=== PATIENT | female | born 1980 | race Caucasian/White ===

== ENCOUNTER 2016-10-12 08:14 | Emergency (ER) | payer BC, OTHER ==
[2016-10-12 09:13] VITALS: BP 134/80
--- NOTE | 2016-10-12 11:06 | UC ---
sarina Bhandari Timothy, scribed for Cesia Mendoza DO on 10/12/16 at 0918 . GI Bleed HPI - HPI Summary HPI Summary: Ananya Gallegos is a 36 yo female presenting to [facility] with rectal bleeding, 4/10 ache and diffuse abdominal and lower back cramping, and possible diarrhea for the past 5 days, 5-6x a day. She states that she feels as though she has diarrhea, but when she uses the toilet she just sees blood. She also has light headedness and dizziness, PIERRE, and feels hot/diaphoresis, and fatigue. She is experiencing some amount of CP, attributed to her GERD. She has a Hx of hemorrhoids, but states she does not think she has them currently. The blood is dark red, not bright red. She denies any other Sx. Her MHx includes mitral valve prolapse, asthma, GERD, depression, anxiety, claustrophobia. She is also a former smoker. - History Of Current Complaint Stated Complaint: RECTAL BLEEDING Time Seen by Provider: 10/12/16 09:16 Hx Obtained From: Patient Hx Last Menstrual Period: 09/21/16 Onset/Duration: Gradual Onset, Lasting Days, Still Present Severity: Black Tarry Stool - PT REPORTS THAT BLOOD IS DORK RED, "WINE COLLORED " WITH OCC BRIGHT BLOOD Severity Initially: Moderate Severity Currently: Moderate Pain Intensity: 4 Pain Scale Used: 0-10 Numeric Associated Pain: Diffuse Character: Cramping Aggravating Factor(s): Food Alleviating Factor(s): Other Associated Signs And Symptoms: Positive: Back Pain, Pallor, Dizziness, Weakness - Allergies/Home medications Allergies/Adverse Reactions: Allergies Allergy/AdvReac Type Severity Reaction Status Date / Time Cephalexin [From Keflex] Allergy Intermediate Hives Verified 10/12/16 09:13 Sulfamethoxazole Allergy Intermediate Hives Verified 10/12/16 09:13 w/Trimethoprim [From Bactrim] Codeine AdvReac Intermediate Nausea And Verified 10/12/16 09:13 Vomiting PMH/Surg Hx/FS Hx/Imm Hx - Additional Past Medical History Additional PMH: Hx of gestational DM for the past two pregnancies Endocrine History Of: Denies: Diabetes Cardiovascular History Of: Denies: Hypertension, Pacemaker/ICD Respiratory History Of: Reports: Asthma Psychological History Of: Reports: Anxiety, Depression - Surgical History Surgical History: Yes Surgery Procedure, Year, and Place: lap diamond, tubes in ears, - Family History Known Family History: Positive: Unknown - Pt is adopted - Social History Occupation: Employed Full-time Lives: With Family Alcohol Use: None Substance Use Type: None Smoking Status (MU): Former Smoker Type: Cigarettes Length of Time of Smoking/Using Tobacco: 12 yrs Have You Smoked in the Last Year: No When Did the Patient Quit Smoking/Using Tobacco: 2013 - Immunization History Most Recent Influenza Vaccination: DECLINES Most Recent Tetanus Shot: unsure, will offer Most Recent Pneumonia Vaccination: never Review of Systems Constitutional: Fatigue, Other - feels hot/diaphoresis Skin: Negative Eyes: Negative ENT: Negative Respiratory: Negative Cardiovascular: Chest Pain Gastrointestinal: Abdominal Pain, Diarrhea - possible, Other - dark red blood in stool Genitourinary: Negative Motor: Negative Neurovascular: Negative Musculoskeletal: Other: - back cramping Neurological: Headache, Other - light headed, dizzy Psychological: Negative All Other Systems Reviewed And Are Negative: Yes Physical Exam Triage Information Reviewed: Yes Appearance: Well-Appearing, No Pain Distress, Obese Vital Signs: Initial Vital Signs Temp 98.4 F 10/12/16 09:06 Pulse 69 10/12/16 09:06 Resp 16 10/12/16 09:06 BP 134/80 10/12/16 09:06 Pulse Ox 100 10/12/16 09:06 Vital Signs Reviewed: Yes Eyes: Positive: Conjunctiva Clear. Negative: Discharge ENT: Positive: Hearing grossly normal. Negative: Muffled/hoarse voice Neck: Positive: Supple, Nontender Respiratory: Positive: Chest non-tender, Lungs clear, Normal breath sounds, No respiratory distress, No accessory muscle use Cardiovascular: Positive: RRR, No Murmur Abdomen Description: Positive: Guarding. Negative: Nontender - very tender LRQ/ LLQ., CVA Tenderness (R), CVA Tenderness (L), Distended Bowel Sounds: Positive: Present Musculoskeletal Exam: Normal Neurological: Positive: Alert, Muscle Tone Normal Psychological Exam: Normal Psychological: Positive: Age Appropriate Behavior Skin Exam: Normal Re-Evaluation - Re-Evaluation First Eval Re-Evaluation Time: 09:52 Change: Unchanged Comment: Further discussed Pt condition and checked capillary refill. Less than 2 seconds. Conjunctiva were normal colored. Second Eval Re-Evaluation Time: 09:57 Change: Unchanged Comment: Pt was informed of results of stool sample analysis Bleed Course/Dx - Course Course Of Treatment: Ananya Guadarrama is a 36 yo female presenting to [facility] with rectal bleeding, light headedness, dizziness, and fatigue. After examination, UA, and stool sample analysis, which was bright red, predominantly made up of blood, she will be transferred to [facility] [place] [place] by private car for higher level of care, including access to lab work. UA results: color: yellow. character: cloudy. odor: foul. bilirubin: negative. urobilinogen: normal. ketones: negative. ascorbic acid: negative. Glucose: negative. protein: 30 mg /dL. blood: negative. pH: 6. Nitrite: negative. Leukocytes: 500 WBC's/ microliter. Specific gravity: 1.015 - Differential Dx/Diagnosis Differential Diagnosis/HQI/PQRI: Diverticulitis, Other - uti, colitis, gi bleed Provider Diagnoses: gi bleed, abd pain of unkown adarsh - Physician Notification/Consults Discussed Patient Care With: Kay Boone (Emergency physician) - Agrees to see Pt in ED Time Discussed With Above Provider: 09:59 Instructed by Provider To: MD Will See In ED Discharge - Discharge Plan Condition: Stable Disposition: TRANS HIGHER LVL OF CARE FAC Discharge Disposition Comment: Transfer to [facility] [place] [place] ED by car The documentation as recorded by the sarina monterroso Timothy accurately reflects the service I personally performed and the decisions made by , Cesia Mendoza DO.
== END 2016-10-12 10:08 | disposition short-term general hospital (02) ==
LOC: UCEAST 08:14
DX: K92.1 Melena (principal); R42 Dizziness and giddiness; R53.83 Other fatigue; Z32.02 Encounter for pregnancy test, result negative; Z88.1 Allergy status to other antibiotic agents; Z88.5 Allergy status to narcotic agent; Z88.2 Allergy status to sulfonamides; Z87.891 Personal history of nicotine dependence
CPT/HCPCS: 81002; 81025; 87077; 87086; 99212; G0463

== ENCOUNTER 2016-10-12 10:34 | Observation (INO) | payer BC ==
[2016-10-12] MEDS ORDERED: Aspirin Low Dose CHEW TAB* 81 MG PO ONE (10:42)
[2016-10-12 13:17] LABS: Hematocrit 35 % (35-47); Hemoglobin 11.4 g/dl (12.0-16.0); Mean Corpuscular HGB Conc 33 g/dl (31-36); Mean Corpuscular Hemoglobin 23 pg (27-31); Mean Corpuscular Volume 72 fL (80-97); Mean Platelet Volume 9 um3 (7.4-10.4); Red Cell Distribution Width 16 % (10.5-15); White Blood Count 10.5 10^3/ul (3.5-10.8)
[2016-10-12 13:18] LABS: Add Diff/Slide Review? Slide Review Added; Comments Flag Yes
[2016-10-12 13:34] LABS: BUN/Creatinine Ratio 9.8 (8-20); Calcium 9.4 mg/dL (8.6-10.3); EGFR African American 141.9 (>60); EGFR Non-African American 110.4 (>60); Globulin 3.4 g/dL (2-4); Potassium 3.5 mmol/L (3.5-5.0); Total Bilirubin 0.7 mg/dL (0.2-1.0); Total Protein 7.4 g/dL (6.4-8.9)
[2016-10-12 13:37] LABS: Troponin I 0.07 ng/mL (<0.04)
[2016-10-12] MEDS ORDERED: Pantoprazole IV* 40 MG IV ONE (13:43)
[2016-10-12] MEDS ORDERED: Ondansetron INJ* 2 MG/ML VIAL IV PRN (14:40)
[2016-10-12] MEDS ORDERED: Morphine INJ* 2 MG/ML 1 ML CARPUJECT IV PRN (14:40)
[2016-10-12] MEDS: NS 0.9% 1000 ML* 1,000 ML IV SCH (17:44)
[2016-10-12] MEDS ORDERED: PEG 3000 GI LAVAGE* 1 GALLON PO ONE (18:00)
[2016-10-12 18:28] LABS: Hematocrit 33 % (35-47); Hemoglobin 10.7 g/dl (12.0-16.0)
[2016-10-12 18:29] LABS: Comments Flag Yes
--- NOTE | 2016-10-12 20:00 | ED ---
Marcos Bhandari Adam, scribed for Abdullahi Boyer MD on 10/12/16 at 1214 . GI/ HPI - HPI Summary HPI Summary: Pt is a 36 year old female sent from urgent care with rectal bleeding that set on 4 nights ago. She says that she has been having what feels like diarrhea but appears to be mostly blood and has been passing blood clots. She also reports spraying blood into the toilet when she passes gas. She states that she has had similar bleeding before due to hemorrhoids but that it typically passes after 1- 2 BM's. She has been having these bloody BM's about 5-6 times a day since they set on 4 nights ago. Pt also c/o abdominal cramping that radiates to her lower back, as well as nausea, lightheadedness, fatigue, and a burning sensation in her esophagus. PMHx of GERD, mitral valve prolapse, and depression. - History of Current Complaint Chief Complaint: EDGIBleed Time Seen by Provider: 10/12/16 12:09 Stated Complaint: RECTAL BLEEDING/ SENT FROM [facility] Hx Obtained From: Patient Onset/Duration: Started Days Ago, Atraumatic, Still Present Timing: Constant Severity: Moderate Current Severity: Moderate Pain Intensity: 2 Location of Pain: Diffuse Pain Characteristics: Cramping Pain Radiates to: Back Associated Signs and Symptoms: Positive: Blood w/Stool, Diarrhea, Lightheadedness, Abdominal Pain. Negative: Vomiting Aggravating Factor(s): Nothing Alleviating Factor(s): Nothing - Allergy/Home Medications Allergies/Adverse Reactions: Allergies Allergy/AdvReac Type Severity Reaction Status Date / Time Cephalexin [From Keflex] Allergy Intermediate Hives Verified 10/12/16 11:29 Sulfamethoxazole Allergy Intermediate Hives Verified 10/12/16 11:29 w/Trimethoprim [From Bactrim] Codeine AdvReac Intermediate Nausea And Verified 10/12/16 11:29 Vomiting PMH/Surg Hx/FS Hx/Imm Hx Endocrine/Hematology History: Denies: Hx Diabetes Cardiovascular History: Reports: Hx Valvular Heart Disease - mitral valve prolapse Denies: Hx Hypertension, Hx Pacemaker/ICD Respiratory History: Reports: Hx Asthma GI History: Reports: Hx Gastroesophageal Reflux Disease - problems with esophagus - seeing a specialist Sensory History: Denies: Hx Hearing Aid Psychiatric History: Reports: Hx Anxiety, Hx Depression Denies: Hx Panic Disorder - Surgical History Surgery Procedure, Year, and Place: lap diamond, tubes in ears, Infectious Disease History: No Infectious Disease History: Denies: Traveled Outside the [place] in Last 30 Days - Family History Known Family History: Positive: Unknown - Noncontributory - Social History Occupation: Employed Full-time Lives: Alone Alcohol Use: None Hx Substance Use: No Substance Use Type: Reports: None Hx Tobacco Use: Yes Smoking Status (MU): Former Smoker Type: Cigarettes Length of Time of Smoking/Using Tobacco: 12 yrs Have You Smoked in the Last Year: No Review of Systems Positive: Fatigue. Negative: Fever Positive: Abdominal Pain, Diarrhea, Nausea, Other - Rectal bleeding, esophageal burning. Negative: Vomiting Neurological: Other - Lightheadedness All Other Systems Reviewed And Are Negative: Yes Physical Exam - Summary Physical Exam Summary: Rectal exam: external hemorrhoids, no obvious bleeding. Triage Information Reviewed: Yes Vital Signs On Initial Exam: Initial Vitals Temp Pulse Resp BP Pulse Ox 98.2 F 74 16 153/97 100 10/12/16 11:11 10/12/16 11:11 10/12/16 11:11 10/12/16 11:11 10/12/16 11:11 Vital Signs Reviewed: Yes Appearance: Positive: Well-Appearing, No Pain Distress Skin: Positive: Warm, Skin Color Reflects Adequate Perfusion, Dry Head/Face: Positive: Normal Head/Face Inspection Eyes: Positive: Other: - Conjunctivae pink ENT: Positive: Normal ENT inspection Neck: Positive: Supple, Nontender Respiratory/Lung Sounds: Positive: Clear to Auscultation, Breath Sounds Present Cardiovascular: Positive: RRR Abdomen Description: Positive: Soft, Other: - Mildly tender in both lower quadrants Bowel Sounds: Positive: Present Musculoskeletal: Positive: Normal Neurological: Positive: Normal Psychiatric: Positive: Normal, Affect/Mood Appropriate Diagnostics - Vital Signs Vital Signs Temp Pulse Resp BP Pulse Ox 10/12/16 11:11 98.2 F 74 16 153/97 100 - Laboratory Lab Results: Lab Results 10/12/16 10/12/16 10/12/16 Range/Units 13:03 13:03 13:03 WBC 10.5 (3.5-10.8) 10^3/ul RBC 4.90 (4.0-5.4) 10^6/ul Hgb 11.4 L (12.0-16.0) g/dl Hct 35 (35-47) % MCV 72 L (80-97) fL MCH 23 L (27-31) pg MCHC 33 (31-36) g/dl RDW 16 H (10.5-15) % Plt Count 209 (150-450) 10^3/ul MPV 9 (7.4-10.4) um3 Neut % (Auto) 65.3 (38-83) % Lymph % (Auto) 28.8 (25-47) % Camp % (Auto) 3.5 (1-9) % Eos % (Auto) 1.6 (0-6) % Baso % (Auto) 0.8 (0-2) % Absolute Neuts (auto) 6.8 (1.5-7.7) 10^3/ul Absolute Lymphs (auto) 3.0 (1.0-4.8) 10^3/ul Absolute Monos (auto) 0.4 (0-0.8) 10^3/ul Absolute Eos (auto) 0.2 (0-0.6) 10^3/ul Absolute Basos (auto) 0.1 (0-0.2) 10^3/ul Absolute Nucleated RBC 0.02 10^3/ul Nucleated RBC % 0.1 INR (Anticoag Therapy) 1.01 (0.89-1.11) Sodium 134 (133-145) mmol/L Potassium 3.5 (3.5-5.0) mmol/L Chloride 99 L (101-111) mmol/L Carbon Dioxide 28 (22-32) mmol/L Anion Gap 7 (2-11) mmol/L BUN 6 (6-24) mg/dL Creatinine 0.61 (0.51-0.95) mg/dL Est GFR ( Amer) 141.9 (>60) Est GFR (Non-Af Amer) 110.4 (>60) BUN/Creatinine Ratio 9.8 (8-20) Glucose 83 (70-100) mg/dL Calcium 9.4 (8.6-10.3) mg/dL Total Bilirubin 0.70 (0.2-1.0) mg/dL AST 19 (13-39) U/L ALT 21 (7-52) U/L Alkaline Phosphatase 63 (34-104) U/L Troponin I 0.07 H* (<0.04) ng/mL Total Protein 7.4 (6.4-8.9) g/dL Albumin 4.0 (3.2-5.2) g/dL Globulin 3.4 (2-4) g/dL Albumin/Globulin Ratio 1.2 (1-3) Result Diagrams: 10/12/16 18:12 10/12/16 13:03 Lab Statement: Any lab studies that have been ordered have been reviewed, and results considered in the medical decision making process. - Additional Comments Diagnostic Additional Comments: Troponin I - 0.07 GIGU Course/Dx - Course Course Of Treatment: Ms. Thierry Gallegos presented with a C/O a GI bleed since last night. Her labs were OK except for an indeterminant troponin but baased on the story, I felt that she should be watched to make sure she didn't drop her H&H and further. - Diagnoses Provider Diagnoses: GI bleed - Physician Notifications Discussed Care Of Patient With: the hospitalist at 13:45. Patient will be admitted. Discharge - Discharge Plan Condition: Stable Disposition: ADMITTED TO [facility] The documentation as recorded by the Marcos monterroso Adam accurately reflects the service I personally performed and the decisions made by me, Abdullahi Boyer MD.
--- NOTE | 2016-10-12 21:07 | HP ---
HISTORY AND PHYSICAL: DATE OF ADMISSION: 10/12/16 PRIMARY CARE PROVIDER: None. CHIEF COMPLAINT: GI bleed. HISTORY OF PRESENT ILLNESS: Ms. Thierry Gallegos is a 36-year-old female who has a history of depression and asthma who presents to the emergency room with complaints of GI bleed. The patient states that approximately this past she began to have dark red blood per rectum. She states initially she felt that it was her hemorrhoids as she has had hemorrhoidal bleeding in the past; however, she did not have any of the usual associated symptoms such as burning and itching with the bleeding. The patient states that also the amount of blood that she was passing was much more than the usual amount with her hemorrhoidal bleeding. The patient describes the blood as being dark red. She notes that sometimes she will have the urgency to have a bowel movement and only blood and clots will be passed. Sometimes she does have a bowel movement, which is also bloody in nature. She states that sometimes when she passes gas, blood will come out. She admits to 5 to 6 bloody bowel movements or episodes per day. She states that in addition to passing the blood, she has had crampy lower back pain as well as lower abdominal pain. She states that she has had crampy upper abdominal pain. She has had some associated nausea and acid reflux. She states that she has felt mildly lightheaded even with just sitting up. The patient states that in addition to these complaints, she has had some mild left-sided chest pain that she described as being similar to when she has had esophageal spasms while . She notes a difficulty with swallowing and food getting stuck intermittently. In addition to these, the patient states that randomly she will start sweating for no particular reason. She denies any fevers. She does state that her appetite has been poor over the last several days. PAST MEDICAL HISTORY: 1. Depression. 2. Asthma. PAST SURGICAL HISTORY: Cholecystectomy. MEDICATIONS: Zoloft 50 mg p.o. daily. ALLERGIES: KEFLEX, SULFA, CODEINE. FAMILY HISTORY: The patient is adopted. SOCIAL HISTORY: The patient is a former smoker of up to 1 pack per day for 12 years. She quit 3 years ago. She does not drink alcohol. She does not use recreational drugs. 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 She is . Her , Isra, is her surrogate decision maker. She has 3 children. REVIEW OF SYSTEMS: The patient denies any fevers, but admits to episodes of sweating intermittently. She admits to anorexia. She admits to the chest discomfort as above. No palpitations. No lower extremity edema. No cough. No shortness of breath. She does admit to nausea, diarrhea, abdominal pain, and hematochezia, all as above. She denies any hematuria. No dysuria. No focal weakness or sensory loss. No sudden changes in vision. No dysphagia. No joint pains or muscle pains out of the ordinary. No rashes. She admits to depression. PHYSICAL EXAMINATION GENERAL: The patient is a well-developed, obese middle-aged female lying in the stretcher in no acute distress. VITAL SIGNS: Blood pressure 153/97, pulse 74, respirations 16, temperature 98.2 , O2 saturation is 100% on room air. HEENT: Pupils are equal. They are round and reactive to light. Extraocular muscles are intact. Oropharynx is clear. Oral mucosa is moist. There is no submandibular, cervical, or supraclavicular adenopathy. NECK: Thyroid is not enlarged. No thyroid nodules noted, though this is a difficult exam given the patient's body habitus. PULMONARY: Lungs are clear to auscultation bilaterally. CARDIAC: Normal S1, S2. Heart sounds are distant, but regular. I do not appreciate any murmurs. There is no lower extremity edema. Pulses are 2+. ABDOMEN: Bowel sounds are present. Abdomen is soft, nondistended. She has mild diffuse tenderness, but worse in the left lower quadrant. MUSCULOSKELETAL: There is no cyanosis or clubbing of the digits. There is full active range of motion. NEUROLOGIC: Cranial nerves II through XII are grossly intact. Sensation is intact to light touch throughout. Strength is 5/5 and symmetrical in both upper and lower extremities bilaterally. PSYCH: The patient is alert. She is oriented x3. Affect appears appropriate. SKIN: Warm and dry. There are no rashes. LABORATORY DATA/DIAGNOSTIC STUDIES: WBC 10.5, hemoglobin 11.4, hematocrit 35, platelets 209. INR 1.01. Sodium 134, potassium 3.5, chloride 99, CO2 of 28, BUN 6, creatinine 0.61, glucose 83, calcium 9.4. Bilirubin 0.7, AST 19, ALT 21 , alk phos 63. Troponin 0.07. Albumin 4.0. EKG reveals normal sinus rhythm without any acute ST-T wave abnormalities. ASSESSMENT AND PLAN: Ms. Guadarrama is a 36-year-old female with a history of depression and asthma who presents to the emergency room with complaints of approximately 4 days of bloody bowel movements. 1. Probable lower GI bleed: The etiology of this is completely clear. This does not sound to be like a tremendous amount of blood, though it does sound to be more than her usual hemorrhoidal amount of blood. The patient states that in addition to the bleeding, she is having some crampy pain in both her back and abdomen. I do question whether or not she may have a slight diverticular bleed. Of note, the patient's hemoglobin is not markedly low despite approximately 4 days of bleeding. We do not have a previous hemoglobin within the last 2 years to compare to. The patient will be admitted and followup hemoglobin and hematocrit will be obtained 4 hours after the initial. GI consult has been requested. At this point, the patient is hemodynamically stable and can be admitted to the medical floor. 2. Elevated troponin: The patient's troponin is slightly elevated at 0.07. She has been complaining of mild left-sided chest pain; however, she notes this when swallowing and feels as if food is sticking. She states that she has had esophageal spasms in the past and this feels very similar. We will go ahead and admit the patient under observation status and rule her out for myocardial infarction. We will obtain a followup troponin at 1700 this evening. The patient's EKG is completely normal and if her troponin is either stable or improved, we will not pursue any further evaluation. It is possible that the elevated troponin could represent some mild demand ischemia related to her bleeding. 3. Depression: The patient will be maintained on her usual dose of Zoloft. 4. DVT prophylaxis: According to the Adult Thrombosis Prophylaxis Risk Factor Assessment Guide, the patient has a total risk factor score of 1 making her low risk. Ambulation will be utilized as DVT prophylaxis. 5. Code status is full and again, the patient's , Isra, is her healthcare proxy. TIME SPENT: Fifty-five minutes were spent admitting this patient. [id number]/[facility] #: [id number] POLI
[2016-10-13] MEDS: NS 0.9% 1000 ML* 1,000 ML IV SCH ×2 (04:16→14:43)
[2016-10-13 04:51] LABS: Hematocrit 33 % (35-47); Hemoglobin 10.6 g/dl (12.0-16.0); Mean Corpuscular HGB Conc 32 g/dl (31-36); Mean Corpuscular Hemoglobin 23 pg (27-31); Mean Platelet Volume 9 um3 (7.4-10.4); Red Blood Count 4.62 10^6/ul (4.0-5.4); Red Cell Distribution Width 17 % (10.5-15); White Blood Count 8.6 10^3/ul (3.5-10.8)
[2016-10-13 04:57] LABS: Comments Flag Yes
[2016-10-13 04:58] LABS: Mean Corpuscular Volume 72 fL (80-97)
[2016-10-13] MEDS: Sertraline* 50 MG TAB PO SCH (09:42)
--- NOTE | 2016-10-13 12:20 | PN ---
Subjective Date of Service: 10/13/16 Interval History: Pt is feeling ok. She still has some mild nausea and lower abdominal cramping. She has intermittently been having bloody stools despite the golytely. She also notices that when she passes the blood it seems slimy. Objective Active Medications: Sodium Chloride (Ns 0.9% 1000 Ml*) 1,000 mls @ 100 mls/hr IV PER RATE [facility] Last Admin: 10/13/16 04:16 Dose: 100 mls/hr Morphine Sulfate (Morphine Inj (Syringe)*) 2 mg IV Q4H PRN PRN Reason: PAIN - MILD Ondansetron HCl (Zofran Inj*) 4 mg IV Q6H PRN PRN Reason: NAUSEA Sertraline HCl (Zoloft*) 50 mg PO DAILY [facility] Last Admin: 10/13/16 09:42 Dose: 50 mg Vital Signs 10/12/16 10/12/16 10/12/16 15:55 16:04 20:00 Temperature 98.2 F 98.2 F Pulse Rate 72 72 Respiratory 16 16 14 Rate Blood Pressure 137/78 137/78 (mmHg) O2 Sat by Pulse 97 97 Oximetry 10/12/16 10/13/16 10/13/16 20:39 00:16 04:01 Temperature 98.3 F 97.4 F 98.3 F Pulse Rate 75 63 72 Respiratory 14 20 20 Rate Blood Pressure 125/60 137/75 155/63 (mmHg) O2 Sat by Pulse 98 100 100 Oximetry 10/13/16 10/13/16 10/13/16 07:21 08:00 10:56 Temperature 98.0 F Pulse Rate 57 62 Respiratory 16 16 Rate Blood Pressure 119/68 (mmHg) O2 Sat by Pulse 98 98 Oximetry Oxygen Devices in Use Now: None Appearance: Young female lying in bed, NAD Eyes: No Scleral Icterus Ears/Nose/Mouth/Throat: Mucous Membranes Moist Respiratory: Symmetrical Chest Expansion and Respiratory Effort, Clear to Auscultation Cardiovascular: NL Sounds; No Murmurs; No JVD, RRR, No Edema Abdominal: NL Sounds; No Tenderness; No Distention Extremities: No Clubbing, Cyanosis Skin: No Rash or Ulcers, No Nodules or Sclerosis Neurological: Alert and Oriented x 3 Result Diagrams: 10/13/16 04:20 10/12/16 13:03 Additional Lab and Data: Lab Results 10/12/16 10/12/16 10/12/16 Range/Units 13:03 13:03 13:03 WBC 10.5 (3.5-10.8) 10^3/ul RBC 4.90 (4.0-5.4) 10^6/ul Hgb 11.4 L (12.0-16.0) g/dl Hct 35 (35-47) % MCV 72 L (80-97) fL MCH 23 L (27-31) pg MCHC 33 (31-36) g/dl RDW 16 H (10.5-15) % Plt Count 209 (150-450) 10^3/ul MPV 9 (7.4-10.4) um3 Neut % (Auto) 65.3 (38-83) % Lymph % (Auto) 28.8 (25-47) % Piatt % (Auto) 3.5 (1-9) % Eos % (Auto) 1.6 (0-6) % Baso % (Auto) 0.8 (0-2) % Absolute Neuts (auto) 6.8 (1.5-7.7) 10^3/ul Absolute Lymphs (auto) 3.0 (1.0-4.8) 10^3/ul Absolute Monos (auto) 0.4 (0-0.8) 10^3/ul Absolute Eos (auto) 0.2 (0-0.6) 10^3/ul Absolute Basos (auto) 0.1 (0-0.2) 10^3/ul Absolute Nucleated RBC 0.02 10^3/ul Nucleated RBC % 0.1 INR (Anticoag Therapy) 1.01 (0.89-1.11) Sodium 134 (133-145) mmol/L Potassium 3.5 (3.5-5.0) mmol/L Chloride 99 L (101-111) mmol/L Carbon Dioxide 28 (22-32) mmol/L Anion Gap 7 (2-11) mmol/L BUN 6 (6-24) mg/dL Creatinine 0.61 (0.51-0.95) mg/dL Est GFR ( Amer) 141.9 (>60) Est GFR (Non-Af Amer) 110.4 (>60) BUN/Creatinine Ratio 9.8 (8-20) Glucose 83 (70-100) mg/dL Calcium 9.4 (8.6-10.3) mg/dL Total Bilirubin 0.70 (0.2-1.0) mg/dL AST 19 (13-39) U/L ALT 21 (7-52) U/L Alkaline Phosphatase 63 (34-104) U/L Troponin I 0.07 H* (<0.04) ng/mL Total Protein 7.4 (6.4-8.9) g/dL Albumin 4.0 (3.2-5.2) g/dL Globulin 3.4 (2-4) g/dL Albumin/Globulin Ratio 1.2 (1-3) Assess/Plan/Problems-Billing Ms Thierry Gallegos is a 36 yo F who has a h/o depression who presented to the ER with c/o bloody stools for 4 days and was admitted for evaluation of GI bleed. - Patient Problems (1) Lower GI bleed Current Visit: Yes Status: Acute Code(s): K92.2 - GASTROINTESTINAL HEMORRHAGE, UNSPECIFIED SNOMED Code(s): 84044239 Comment: Etiology is not clear. Plan is for colonoscopy this afternoon. Her H /H dropped further last night and this AM. H/H is stable at this time. Await results of colonoscopy. (2) Depression Current Visit: Yes Status: Acute Code(s): F32.9 - MAJOR DEPRESSIVE DISORDER , SINGLE EPISODE, UNSPECIFIED SNOMED Code(s): 98504037 Comment: Continue sertraline 50mg daily. (3) DVT prophylaxis Current Visit: Yes Status: Acute Code(s): IPK6474 - SNOMED Code(s): 898221167 (4) Full code status Current Visit: Yes Status: Acute Code(s): Z78.9 - OTHER SPECIFIED HEALTH STATUS SNOMED Code(s): 331170185 (5) History of depression Current Visit: No Status: Chronic Code(s): Z86.59 - PERSONAL HISTORY OF OTHER MENTAL AND BEHAVIORAL DISORDERS SNOMED Code(s): 111577226
--- NOTE | 2016-10-13 15:17 | CONS ---
GASTROENTEROLOGY CONSULTATION DATE OF CONSULT: 10/12/2016. REQUESTING PHYSICIAN: Dr. Espinoza. REASON FOR CONSULT: Hematochezia. HISTORY OF PRESENT ILLNESS: Ms. Thierry Gallegos is a pleasant 36-year-old female who states that approximately a week ago she developed bloody stools. She states her stools have been very loose and dark bloody. She describes them as maroon. There are numerous clots in the stool. Often times she would just have blood and no stool with her bowel movement. She does admit to crampy, diffuse abdominal pain, some nausea, no vomiting, no fevers or chills, no infectious contacts, no recent nonsteroidal's. Of note, she did have a colonoscopy with Dr. Lynch a number of years ago, I believe ten, that was unremarkable. This was done for the same situation. No family history known of GI illness as the patient is adopted. She states that she normally sees bright red blood as she has hemorrhoids and this has been different. PAST MEDICAL HISTORY: Significant for asthma and depression. PAST SURGICAL HISTORY: Cholecystectomy. MEDICATIONS UPON ADMISSION: Zoloft 50 mg. ALLERGIES: CODEINE, SULFA, KEFLEX. FAMILY HISTORY: Again, the patient is adopted. SOCIAL HISTORY: She quit smoking a few years ago. Rare alcohol. No IV drugs. REVIEW OF SYSTEMS: Twelve systems were reviewed. Other than that mentioned in the HPI were unremarkable. PHYSICAL EXAM: General: Well-appearing female, in no apparent distress. Alert , oriented, pleasant, fluent. Vital signs: Temperature 98.0, blood pressure 119/68, pulse 57. HEENT: Mucus membranes are moist without lesions, ulcers or exudate. Head is normocephalic, atraumatic. Neck: Supple. Trachea is midline. Heart: Regular rate and rhythm. Lungs: Clear to auscultation. Abdomen: Obese, positive bowel sounds. Soft, nontender, nondistended. No hepatosplenomegaly, masses, rebound or guarding. Skin: Warm and dry. DIAGNOSTIC STUDIES/LAB DATA: Labs of note, she does have a white count of 10.5 , hemoglobin is 11.4, platelets of 209; INR is 1; chloride is 99, sodium 134, her troponin was 0.07, BUN of 6, creatinine of 0.61. ASSESSMENT AND PLAN: This is a pleasant, 36-year-old with hematochezia. Given the couple of days history of her symptoms and the fact this feels different than her hemorrhoids, I think performing a colonoscopy would be a good idea. I did have a long discussion with the patient and her mother regarding possible causes of her hematochezia. We will hopefully be able to get her prepped tonight and then perform the colonoscopy tomorrow. We discussed diverticulosis , polyps, IBD, malignancy, and hemorrhoids. We will also repeat a troponin on her. [id number]/[facility] #: [id number] POLI
[2016-10-13] MEDS ORDERED: Midazolam* 1 MG/ML 10 ML VIAL (10 MG) ONE (16:54)
[2016-10-13] MEDS ORDERED: Meperidine SYRINGE* 50 MG/ML ONE (16:54)
[2016-10-14 02:03] VITALS: BP 128/72
[2016-10-14] MEDS: NS 0.9% 1000 ML* 1,000 ML IV SCH (05:43)
[2016-10-14 06:29] LABS: Hematocrit 29 % (35-47); Hemoglobin 9.4 g/dl (12.0-16.0); Mean Corpuscular HGB Conc 32 g/dl (31-36); Mean Corpuscular Hemoglobin 23 pg (27-31); Mean Platelet Volume 9 um3 (7.4-10.4); Red Blood Count 4.01 10^6/ul (4.0-5.4); Red Cell Distribution Width 16 % (10.5-15)
[2016-10-14 06:37] LABS: Comments Flag Yes; Mean Corpuscular Volume 73 fL (80-97)
--- NOTE | 2016-10-14 07:14 | PN ---
Hospitalist Progress Note . HOSPITALIST DISCHARGE NOTE: See dc instructions and summary by me. Patient stable for dc dc instructions reviewed with the patient at the bedside. DC patient home today.
[2016-10-14] MEDS: Sertraline* 50 MG TAB PO SCH (07:30)
[2016-10-14] MEDS ORDERED: Levofloxacin TAB* 250 MG ONE (08:13)
--- NOTE | 2016-10-14 12:36 | PRO ---
DATE: 10/13/16 - ROOM #[id number] REFERRING PHYSICIAN: Lakhwinder Thakur.* PROCEDURE: Colonoscopy and ileoscopy. INDICATION: This 36-year-old woman began seeing some blood the evening of , October 08. The next day, she had some cramping pain. Earlier in the week, she had participated in an abdominal exercise challenge. She states her bowel habit is generally regular daily and without skips. Every couple of months, she will have some hemorrhoidal bleeding and irritation for few days. In general, she is not constipated and does not use laxatives. She continued to see some blood for a couple of days and cramping also continued. There was no fever and no vomiting. Yesterday, she began seeing matt blood clots and came to the emergency room and was admitted. While here, hemoglobin has fallen just slightly to 10.6. There has been no fever. About two-thirds of the way through drinking her prep, bleeding stopped. Her actually has been of the idea that the amount of bleeding is not terribly different from what she would see from bouts attributed to hemorrhoids. She does not have a regular physician. She has a 2- and 3-year-old at home. ENDOSCOPIST: Dr. Lagunas MEDICATION: Midazolam 10, meperidine 50. FINDINGS: She is a very substantially overweight young woman, in no distress. Her skin is normal. The abdomen is obese, soft, and nontender. Perianal inspection shows circumferential, flowery, exuberant skin tags. They are not particularly vascular and appear uninflamed. They are just redundant and impressive. Digital rectal itself is tolerated well and normal. Initial views show normal rectal mucosa down to the anal verge. The rectum has no sign of inflammation. The vascular pattern is normal up to the mid rectum and rectosigmoid. Pediatric scope then advances easily through the sigmoid, descending, transverse, and right colon. A loop formed a little bit and rotation was required to get down into the cecal cap. The cecum, ileocecal valve, 20 cm terminal ileum, and the right colon directly were normal. On slow withdrawal, no abnormalities were noted. The vascular pattern was intact throughout and there were no diverticula and no areas of colitis. Final views in the rectum including retroflexion just showed a mildly prominent venous pattern internally. There is not really any bulging denoting internal hemorrhoids, but just a mildly prominent venous pattern. Slow anal pull through was the same. The most remarkable findings were the external hemorrhoids or skin tags depending on one's diagnostic criteria. IMPRESSION: 1. Internal, canal and especially external hemorrhoids. 2. Abdominal pain and cramping - could be from a variety of sources including a viral gastroenteritis, diet change, excessive exercise, etc. 3. Iron-deficiency anemia - likely multifactorial and a low-dose iron replacement should be started. At this time, I would also start FiberCon one a day with extra water, possibly moving to two a day. She needs a primary physician. [id number]/[facility] #: [id number] MTDD
--- NOTE | 2016-10-15 14:39 | DS ---
DISCHARGE SUMMARY: DATE OF ADMISSION: 10/12/16 DATE OF DISCHARGE: 10/14/16 PRIMARY CARE PROVIDER: New assignment to Elena Willis NP, at [facility]. CHIEF COMPLAINT: GI bleed. DISCHARGE DIAGNOSES: Internal and external hemorrhoids by colonoscopy with cessation of bleeding and stabilization of hemoglobin with followup labs requested later this week with results to Elena Willis NP. SECONDARY DIAGNOSES: 1. Acute urinary tract infection - cystitis - antibiotics prescribed. 2. Depression. 3. Asthma. DISCHARGE MEDICATION REGIMEN: 1. Ferrous sulfate 325 mg by mouth daily. 2. Levofloxacin 250 mg by mouth for 3 days, then stop. 3. FiberCon, OTC (recommended). 4. Continue multivitamin as per outpatient regimen. HISTORY OF PRESENT ILLNESS AND HOSPITAL COURSE: Ms. Thierry Gallegos is a 36- year-old female with history of depression and asthma, who came to the emergency room with GI bleeding that was going on since past with the initial complaint being darker blood per rectum, but starting to turn bright red. She has a history of hemorrhoidal bleeding, though she did not have the typical associated symptoms, but had more of a crampy lower abdominal discomfort , it was more characteristic of a urinary tract infection. The patient had 5 to 6 bloody bowel movements per day. In addition to passing the blood, she had crampy lower back pain as well as lower abdominal pain and again, she felt that this was consistent with a urinary tract infection. The patient was admitted to the hospital and had a GI consultation. The patient was found to be somewhat anemic with a hemoglobin of 11.4. The patient was taken to colonoscopy to clarify the deferential diagnosis. The patient was not transfused during the hospitalization. The colonoscopy revealed both internal and external hemorrhoids. She was given hemorrhoid-related education including the role for high-fiber diet and the avoidance of abdominal straining or other irritating behaviors. The patient is being discharged on oral iron and instructions to return to the emergency room if she has further brisk bleeding. If her hemorrhoidal bleeding continues, she can follow up with GI or rectal surgeon for further definitive care. As for now, she is stable and ready for discharge. I did treat her empirically for a lower urinary tract infection with a short course of oral levofloxacin. Again, she is going to follow up with Elena Willis NP, that appointment is being arranged and will be communicated to the patient by the hospitalist coordinator. TIME SPENT: Total time taken to discharge Ms. Guadarrama was 45 minutes, greater than half the time was spent going over the discharge instructions [id number] with the patient including the results of the colonoscopy and their interpretation and meaning. CC: Elena Willis NP* [id number]/[facility] #: [id number] MTDD
== END 2016-10-14 08:45 | disposition home or self-care (01) ==
LOC: ED 10:34 → MEDTELE 14:05
PROVIDERS: ADMIT Hospitalist; ATTEND Internal Medicine
PROC: 0DJD8ZZ Inspection of Lower Intestinal Tract, Via Natural or Artificial Opening Endoscopic (ICD-10-PCS; principal; 2016-10-12)
DX: K64.8 Other hemorrhoids (principal); K64.4 Residual hemorrhoidal skin tags; D64.9 Anemia, unspecified; R74.8 Abnormal levels of other serum enzymes; R10.9 Unspecified abdominal pain; F32.9 Major depressive disorder, single episode, unspecified; R07.9 Chest pain, unspecified; K21.9 Gastro-esophageal reflux disease without esophagitis; I34.1 Nonrheumatic mitral (valve) prolapse; Z88.2 Allergy status to sulfonamides; Z79.899 Other long term (current) drug therapy; Z88.5 Allergy status to narcotic agent; Z88.1 Allergy status to other antibiotic agents; Z87.891 Personal history of nicotine dependence
CPT/HCPCS: 36415; 80053; 84484; 85014; 85018; 85025; 85027; 85610; 93005; 96361; 96374; 99282; A9270-GY; G0378; J2175; J2250

== ENCOUNTER 2017-10-04 18:18 | Emergency (ER) | payer BC ==
[2017-10-04 18:37] VITALS: BP 167/85
--- NOTE | 2017-10-04 20:35 | UC ---
Neelima Bhandrai Abhishek, scribed for Jus Fernando MD on 10/04/17 at 2000 . Headache HPI - HPI Summary HPI Summary: This patient is a 37 year old F presenting to [facility] with a chief complaint of bilateral UE edema since few days ago. Pt states the first symptoms began one week ago. The patient rates the pain 7/10 in severity. Symptoms aggravated by nothing. Symptoms alleviated by nothing. Patient reports edema at the ankles ( not currently), intermittent PIERRE, neck pain, blurry vision, lightheadedness, SOB and dehydrated. Pt states she has been feeling that there is something is tearing in the chest since the past few years. These episodes normally last few minutes, however, one episode lasted for a few days (onset one week ago). PT denies abd pain. - History Of Current Complaint Chief Complaint: EDHeadache Stated Complaint: SWELLING IN ARMS, AND SHORTNESS OF BREATH Time Seen by Provider: 10/04/17 19:44 Hx Obtained From: Patient Pain Intensity: 7 Pain Scale Used: 0-10 Numeric Timing: Constant Aggravating Factor(s): Nothing Allevating Factor(s): Nothing Associated Signs And Symptoms: Positive: Neck Pain, Other (Noted In Comments) - edema at the ankles (not currently), intermittent PIERRE, neck pain, blurry vision, lightheadedness, SOB and dehydrated. - Allergies/Home Medications Allergies/Adverse Reactions: Allergies Allergy/AdvReac Type Severity Reaction Status Date / Time Cephalexin [From Keflex] Allergy Intermediate Hives Verified 10/04/17 18:37 Sulfamethoxazole Allergy Intermediate Hives Verified 10/04/17 18:37 w/Trimethoprim [From Bactrim] Codeine AdvReac Intermediate Nausea And Verified 10/04/17 18:37 Vomiting PMH/Surg Hx/FS Hx/Imm Hx Other Cardiovascular History: Negative cardiac disease. Negative HTN. Other Cancer History: No cancer hx - Surgical History Surgical History: Yes Surgery Procedure, Year, and Place: lap diamond, tubes in ears, gall bladder removed - Family History Known Family History: Positive: Unknown - Pt states she is "adopted" - Social History Occupation: Employed Full-time Lives: With Family Alcohol Use: None Substance Use Type: None Smoking Status (MU): Former Smoker Type: Cigarettes Length of Time of Smoking/Using Tobacco: 12 yrs Have You Smoked in the Last Year: No When Did the Patient Quit Smoking/Using Tobacco: 2013 - Immunization History Most Recent Influenza Vaccination: DECLINES Most Recent Tetanus Shot: unsure, will offer Most Recent Pneumonia Vaccination: never Review of Systems Constitutional: Other - dehydrated Skin: Negative Eyes: Negative ENT: Negative Respiratory: Shortness Of Breath Cardiovascular: Chest Pain - Pt states she has been feeling that there is something is tearing in the chest since the past few years. Gastrointestinal: Other - Negative abd pain Genitourinary: Negative Motor: Negative Neurovascular: Negative Musculoskeletal: Edema - bilateral UE, and the ankles, Other: - neck pain Neurological: Headache - (intermittent), Other - blurry vision, and lightheadedness All Other Systems Reviewed And Are Negative: Yes Physical Exam Triage Information Reviewed: Yes Vital Signs: Initial Vital Signs Temp 98.3 F 10/04/17 18:28 Pulse 82 10/04/17 18:28 Resp 18 10/04/17 18:28 BP 167/85 10/04/17 18:28 Pulse Ox 98 10/04/17 18:28 - Additional Comments General: well-appearing, no pain distress Skin: warm, color reflects adequate perfusion, dry Head: normal Eyes: EOMI, CARLOS ENT: normal Neck: supple, nontender Respiratory: CTA, breath sounds present Cardiovascular: RRR Abdomen: soft, nontender Bowel: present Musculoskeletal: normal, strength/ROM intact Neurological: normal, sensory/motor intact, A&O x3 Psychological: affect/mood appropriate Diagnostics - EKG Cardiac Rate: NL Cardiac Rhythm: Sinus: Normal - 67 bpm at 2014 Ectopy: None ST Segment: Normal Headache Course/Dx - Course Course Of Treatment: DISCUSSED DDX WITH PATIENT TO INCLUDE CHEST AORTIC ANEURYSM. NO PAIN NOW, NL EKG, GOOD PULSES/PERFUSION AT THIS TIME. PATIENT WILL GO TO THE ED FOR FURTHER EVALUATION TO INCLUDE A CTA CHEST. DISCUSSED WITH ED, DR SOLOMON. - Differential Dx/Diagnosis Provider Diagnoses: CHEST PAIN. HYPERTENSION. NECK PAIN. HEADACHE. B/L ARM WEAKNESS Discharge - Discharge Plan Condition: Stable Disposition: HOME Patient Education Materials: Chest Pain (ED), Acute Headache (ED), Hypertension (ED), Acute Neck Pain (ED) Referrals: Elena Willis NP [Primary Care Provider] - Additional Instructions: GO DIRECTLY TO THE EMERGENCY DEPARTMENT FOR FURTHER EVALUATION OF THE TEARING CHEST PAIN YOU EXPERIENCED LAST WEEK AND YOUR UPPER BILATERAL ARM WEAKNESS, HYPERTENSION, NECK PAIN AND HEADACHE. The documentation as recorded by the Neelima monterroso Abhishek accurately reflects the service I personally performed and the decisions made by me, Jus Fernando MD.
== END 2017-10-04 20:38 | disposition home or self-care (01) ==
LOC: UCEAST 18:18
DX: R07.9 Chest pain, unspecified (principal); I10 Essential (primary) hypertension; M54.2 Cervicalgia; M62.81 Muscle weakness (generalized); Z87.891 Personal history of nicotine dependence
CPT/HCPCS: 93005; 99212; G0463

== ENCOUNTER 2017-10-04 21:06 | Emergency (ER) | payer BC ==
[2017-10-04] MEDS ORDERED: LORazepam INJ* 2 MG/ML 1 ML VIAL IV PUSH ONE (23:58)
[2017-10-05 00:58] LABS: ABS Basophils 0.1 10^3/ul (0-0.2); ABS Eosinophils 0.2 10^3/ul (0-0.6); ABS Lymphocytes 3.4 10^3/ul (1.0-4.8); ABS Monocytes 0.4 10^3/ul (0-0.8); ABS Neutrophils 5.9 10^3/ul (1.5-7.7); ABS Nucleated RBC 0 10^3/ul; Eosinophil % 1.9 % (0-6); Hematocrit 36 % (35-47); Hemoglobin 11.7 g/dl (12.0-16.0); Lymphocyte % 34.2 % (25-47); Mean Corpuscular HGB Conc 33 g/dl (31-36); Mean Corpuscular Hemoglobin 24 pg (27-31); Mean Corpuscular Volume 73 fL (80-97); Mean Platelet Volume 9 um3 (7.4-10.4); Nucleated Red Blood Cells % 0; Platelet Count 203 10^3/ul (150-450); Red Blood Count 4.92 10^6/ul (4.0-5.4); Red Cell Distribution Width 16 % (10.5-15); White Blood Count 10.1 10^3/ul (3.5-10.8)
[2017-10-05 01:02] LABS: INR 0.9 (0.77-1.02)
[2017-10-05 01:11] LABS: EGFR Non-African American 103.9 (>60)
[2017-10-05 01:35] VITALS: BP 118/72
--- NOTE | 2017-10-05 01:39 | ED ---
Tameka Bhandari Edward, scribed for Robert Juarez MD on 10/04/17 at 2343 . Complex/Multi-Sys Presentation - HPI Summary HPI Summary: 37 y/o female presents to the ED c/o intermittent episodes of L side CP starting 1 week ago. The episodes lasted for minutes, but the pt has not had any episodes for the past week until today. The pain is described as something "tearing". Since then the pt also c/o intermittent nausea and intermittent PIERRE. Pt also c/o swelling in both arms and pain at her neck and both shoulder. Pt was sent to the ED from . PMHx fibromyalgia, anxiety and depression. Associated sx: SOB, back pain. - History Of Current Complaint Chief Complaint: EDGeneral Time Seen by Provider: 10/04/17 23:40 Hx Obtained From: Patient Onset/Duration: Lasting Days Timing: Intermittent, Lasting: Location: Pain At: - L side chest Associated Signs And Symptoms: Positive: Headache, SOB, Chest Pain, Edema - both arms, Nausea, Back Pain, Other - neck pain - Allergies/Home Medications Allergies/Adverse Reactions: Allergies Allergy/AdvReac Type Severity Reaction Status Date / Time Cephalexin [From Keflex] Allergy Intermediate Hives Verified 10/04/17 18:37 Sulfamethoxazole Allergy Intermediate Hives Verified 10/04/17 18:37 w/Trimethoprim [From Bactrim] Codeine AdvReac Intermediate Nausea And Verified 10/04/17 18:37 Vomiting PMH/Surg Hx/FS Hx/Imm Hx Previously Healthy: No Endocrine/Hematology History: Denies: Hx Diabetes Cardiovascular History: Reports: Hx Valvular Heart Disease - mitral valve prolapse Denies: Hx Hypertension, Hx Pacemaker/ICD Respiratory History: Reports: Hx Asthma GI History: Reports: Hx Gastroesophageal Reflux Disease - problems with esophagus - seeing a specialist Sensory History: Reports: Hx Contacts or Glasses Denies: Hx Hearing Aid Opthamlomology History: Reports: Hx Contacts or Glasses Psychiatric History: Reports: Hx Anxiety, Hx Depression Denies: Hx Panic Disorder - Surgical History Surgery Procedure, Year, and Place: lap diamond, tubes in ears, gall bladder removed Infectious Disease History: No Infectious Disease History: Denies: Hx Clostridium Difficile, Hx Hepatitis, Hx Human Immunodeficiency Virus (HIV), Hx Shingles, Hx Tuberculosis, Hx Known/Suspected VRE, Hx Known/ Suspected VRSA, History Other Infectious Disease, Traveled Outside the [place] in Last 30 Days - Family History Known Family History: Positive: Unknown - Pt states she is "adopted" - Social History Alcohol Use: None Hx Substance Use: No Substance Use Type: Reports: None Hx Tobacco Use: Yes Smoking Status (MU): Former Smoker Type: Cigarettes Length of Time of Smoking/Using Tobacco: 12 yrs Have You Smoked in the Last Year: No Review of Systems Constitutional: Negative Eyes: Negative ENT: Negative Positive: Chest Pain Positive: Shortness Of Breath Positive: Nausea Genitourinary: Negative Positive: Myalgia - neck, shoulder and back pain, Edema - both arms Skin: Negative Positive: Headache Psychological: Normal All Other Systems Reviewed And Are Negative: Yes Physical Exam - Summary Physical Exam Summary: VITAL SIGNS: Reviewed. GENERAL: Patient is a morbidly obese female who is lying comfortable in the stretcher. Patient is not in any acute respiratory distress. HEAD AND FACE: No signs of trauma. No ecchymosis, hematomas or skull depressions. No sinus tenderness. EYES: PERRLA, EOMI x 2, No injected conjunctiva, no nystagmus. EARS: Hearing grossly intact. Ear canals and tympanic membranes are within normal limits. MOUTH: Oropharynx within normal limits. NECK: Supple, trachea is midline, no adenopathy, no JVD, no carotid bruit, no c- spine tenderness, neck with full ROM. CHEST: Symmetric, no tenderness at palpation LUNGS: Clear to auscultation bilaterally. No wheezing or crackles. CVS: Regular rate and rhythm, S1 and S2 present, no murmurs or gallops appreciated. ABDOMEN: Soft, non-tender. No signs of distention. No rebound no guarding, and no masses palpated. Bowel sounds are normal. EXTREMITIES: FROM in all major joints, no edema, no cyanosis or clubbing. NEURO: Alert and oriented x 3. No acute neurological deficits. Speech is normal and follows commands. SKIN: Dry and warm Triage Information Reviewed: Yes Vital Signs On Initial Exam: Initial Vitals Temp Pulse Resp BP Pulse Ox 98 F 66 18 153/93 97 10/04/17 21:18 10/04/17 21:18 10/04/17 21:18 10/04/17 21:18 10/04/17 21:18 Vital Signs Reviewed: Yes Diagnostics - Vital Signs Vital Signs Temp Pulse Resp BP Pulse Ox 10/04/17 21:18 98 F 66 18 153/93 97 - Laboratory Result Diagrams: 10/05/17 00:30 10/05/17 00:30 Lab Statement: Any lab studies that have been ordered have been reviewed, and results considered in the medical decision making process. - Radiology CXR Xray Interpretation: No Acute Changes - NO ACUTE PROCESS. PT HAS NARROW MEDIASTITUM. Radiology Interpretation Completed By: ED Physician - EKG 1 EKG Interpretation: SR @ 69 BPM. Normal axis, normal interval, no ischemic changes Re-Evaluation - Re-Evaluation 1 Re-Evaluation Time: 01:30 Comment: Discuss test results and plan of care Complex Multi-Symp Course/Dx Assessment/Plan: 37 y/o female presents to the ED c/o intermittent episodes of L side CP starting 1 week ago. The episodes lasted for minutes, but the pt has not had any episodes for the past week until today. The pain is described as something "tearing". CXR negative for acute process, and shows pt has a narrow mediastitum. EKG normal. Pt will be d/c with f/u with PCP. - Diagnoses Provider Diagnoses: Atypical chest pain Discharge - Discharge Plan Condition: Stable Disposition: HOME Patient Education Materials: Chest Pain (ED) Referrals: Carmencita Petit MD [Primary Care Provider] - 4 Days (PLEASE F/U IN 3-5 DAYS) Additional Instructions: PLEASE RETURN TO THE ED FOR RETURN OR WORSENING OF SYMPTOMS The documentation as recorded by the Tameka monterroso Edward accurately reflects the service I personally performed and the decisions made by me, Robert Juarez MD.
--- NOTE | 2017-10-05 07:46 | RAD ---
INDICATION: Chest pain. COMPARISON: Comparison is made with a prior study from November 09, 2012. TECHNIQUE: A portable view of the chest was obtained. FINDINGS: Cardiac and mediastinal contours appear to be within normal limits. The lungs are clear. No pleural effusion is seen. IMPRESSION: NO EVIDENCE FOR ACUTE DISEASE.
== END 2017-10-05 01:45 | disposition home or self-care (01) ==
LOC: ED 21:06
DX: R07.89 Other chest pain (principal); R51 Headache; R06.02 Shortness of breath; R60.9 Edema, unspecified; R11.0 Nausea; M54.9 Dorsalgia, unspecified; Z87.891 Personal history of nicotine dependence
CPT/HCPCS: 36415; 71045; 80053; 82550; 84484; 84702; 85025; 85610; 85730; 93005; 96374; 99282

== ENCOUNTER 2017-10-05 17:16 | Emergency (ER) | payer BC ==
[2017-10-05 19:17] LABS: ABS Basophils 0.1 10^3/ul (0-0.2); ABS Eosinophils 0.2 10^3/ul (0-0.6); ABS Monocytes 0.6 10^3/ul (0-0.8); ABS Neutrophils 6.4 10^3/ul (1.5-7.7); ABS Nucleated RBC 0 10^3/ul; Hematocrit 37 % (35-47); Hemoglobin 12.1 g/dl (12.0-16.0); Lymphocyte % 29.4 % (25-47); Mean Corpuscular HGB Conc 33 g/dl (31-36); Mean Corpuscular Hemoglobin 24 pg (27-31); Mean Corpuscular Volume 73 fL (80-97); Mean Platelet Volume 9 um3 (7.4-10.4); Nucleated Red Blood Cells % 0; Platelet Count 214 10^3/ul (150-450); Red Blood Count 5.03 10^6/ul (4.0-5.4); Red Cell Distribution Width 16 % (10.5-15); White Blood Count 10.2 10^3/ul (3.5-10.8)
[2017-10-05] MEDS ORDERED: Iohexol 350* (CONTRAST) 500 ML MDV IV ONE (19:18)
[2017-10-05 19:32] LABS: EGFR Non-African American 118.7 (>60)
--- NOTE | 2017-10-05 19:45 | RAD ---
Indication: Chest pain. Contrast: Administered 100.1 ml of OMNIPAQUE 350 mg/ml CTA of the chest was performed after IV contrast administration. Coronal and sagittal reconstructed images were obtained. The pulmonary arterial tree is well opacified. No filling defects to suggest pulmonary embolus is noted. The aorta demonstrates no evidence of aortic dissection. No aneurysmal dilatation is noted. There is no mediastinal or hilar adenopathy noted. The trachea and major bronchi appear patent. The lung linn demonstrate a 3 mm nodule in the right middle lobe. No pleural fluid is identified. The visualized abdominal organs are unremarkable. Patient status post cholecystectomy. IMPRESSION: No evidence of aortic dissection. No evidence of pulmonary embolus is noted.
[2017-10-05 21:22] LABS: Urine Appearance Cloudy; Urine Blood 1+ (Negative); Urine Color Yellow; Urine Ketones Negative (Negative); Urine Protein Negative (Negative); Urine Specific Gravity > 1.060 (1.010-1.030); Urine Urobilinogen Negative (Negative)
[2017-10-05] MEDS ORDERED: Ciprofloxacin TAB* 500 MG PO ONE (21:29)
[2017-10-05 21:47] VITALS: BP 134/74
--- NOTE | 2017-10-17 14:11 | ED ---
Rolando Bhandari Stephanie, scribed for Ulises Bates MD on 10/05/17 at 2054 . Shortness of Breath - HPI Summary HPI Summary: The pt is a 37 y/o F presenting to the ED with c/o SOB that began 1 week ago. Symptoms include a tearing feeling on the L side of the chest. This tearing feeling is intermittent and lasts for a few seconds. The pt reports that for the past few days, the tearing feeling was intermittent lasting days. The pt reports swelling in feet and upper portion of the upper extremities bilaterally , and swelling over neck and back part of the shoulders. Swelling in ankles and feet is worse at the end of the day. The pt reports lightheadedness, PIERRE, weakness and heaviness in arms bilaterally. The pt denies swelling in face and history of varicose veins. - History of Current Complaint Chief Complaint: EDChestPainROMI Hx Obtained From: Patient Onset/Duration: Lasting Weeks - 1, Still Present Timing: Intermittent Episodes Lasting: - days Aggrevating Factors: Nothing Alleviating Factors: Nothing - Allergy/Home Medications Allergies/Adverse Reactions: Allergies Allergy/AdvReac Type Severity Reaction Status Date / Time Cephalexin [From Keflex] Allergy Intermediate Hives Verified 10/04/17 18:37 Sulfamethoxazole Allergy Intermediate Hives Verified 10/04/17 18:37 w/Trimethoprim [From Bactrim] Codeine AdvReac Intermediate Nausea And Verified 10/04/17 18:37 Vomiting PMH/Surg Hx/FS Hx/Imm Hx Endocrine/Hematology History: Denies: Hx Diabetes Cardiovascular History: Reports: Hx Valvular Heart Disease - mitral valve prolapse Denies: Hx Hypertension, Hx Pacemaker/ICD Respiratory History: Reports: Hx Asthma GI History: Reports: Hx Gastroesophageal Reflux Disease - problems with esophagus - seeing a specialist History: Denies: Hx Renal Disease Sensory History: Reports: Hx Contacts or Glasses Denies: Hx Hearing Aid Opthamlomology History: Reports: Hx Contacts or Glasses Psychiatric History: Reports: Hx Anxiety, Hx Depression Denies: Hx Panic Disorder - Surgical History Surgery Procedure, Year, and Place: lap diamond, tubes in ears, gall bladder removed Infectious Disease History: No Infectious Disease History: Denies: Hx Clostridium Difficile, Hx Hepatitis, Hx Human Immunodeficiency Virus (HIV), Hx Shingles, Hx Tuberculosis, Hx Known/Suspected VRE, Hx Known/ Suspected VRSA, History Other Infectious Disease, Traveled Outside the [place] in Last 30 Days - Family History Known Family History: Positive: Unknown - Pt states she is "adopted" - Social History Occupation: Employed Full-time Lives: With Family Alcohol Use: None Hx Substance Use: No Substance Use Type: Reports: None Hx Tobacco Use: Yes Smoking Status (MU): Former Smoker Type: Cigarettes Length of Time of Smoking/Using Tobacco: 12 yrs Have You Smoked in the Last Year: No Review of Systems Negative: Fever, Chills Negative: Erythema Negative: Sore Throat Positive: Chest Pain - tearing within L side of chest Positive: Shortness Of Breath. Negative: Cough Negative: Abdominal Pain, Vomiting, Nausea Negative: dysuria, hematuria Positive: Edema - upper and lower extremities, over neck, and over posterior part of scapulae. Negative: Myalgia Negative: Rash Neurological: Other - lightheadedness, heaviness in arms bilaterally. Negative: dizziness Positive: Headache, Weakness - arms bilaterally All Other Systems Reviewed And Are Negative: Yes Physical Exam - Summary Physical Exam Summary: Constitutional: Well-developed, Well-nourished, Alert. (-) Distressed, obese Skin: Warm, Dry HENT: Normocephalic; Atraumatic Eyes: Conjunctiva normal Neck: Musculoskeletal ROM normal neck. (-) JVD, (-) Stridor, (-) Tracheal deviation Cardio: Rhythm regular, rate normal, Heart sounds normal; Intact distal pulses; The pedal pulses are 2+ and symmetric. Radial pulses are 2+ and symmetric. (-) Murmur Pulmonary/Chest wall: Effort normal. (-) Respiratory distress, (-) Wheezes, (-) Rales Abd: Soft, (-) Tenderness, (-) Distension, (-) Guarding, (-) Rebound Musculoskeletal: (-) Edema Lymph: (-) Cervical adenopathy Neuro: Alert, Oriented x3 Psych: Mood and affect Normal Triage Information Reviewed: Yes Vital Signs On Initial Exam: Initial Vitals Temp Pulse Resp BP Pulse Ox 98.2 F 76 18 146/82 99 10/05/17 17:20 10/05/17 17:20 10/05/17 17:20 10/05/17 17:20 10/05/17 17:20 Vital Signs Reviewed: Yes Diagnostics - Vital Signs Vital Signs Temp Pulse Resp BP Pulse Ox 01/23/18 20:00 120/77 10/05/17 19:52 74 15 128/67 98 10/05/17 19:00 81 17 100 10/05/17 18:44 98.2 F 68 15 138/74 98 10/05/17 18:43 74 8 98 10/05/17 18:41 138/74 10/05/17 17:20 98.2 F 76 18 146/82 99 - Laboratory Lab Results: Lab Results 10/05/17 10/05/17 10/05/17 Range/Units 19:05 19:05 19:05 WBC 10.2 (3.5-10.8) 10^3/ul RBC 5.03 (4.0-5.4) 10^6/ul Hgb 12.1 (12.0-16.0) g/dl Hct 37 (35-47) % MCV 73 L (80-97) fL MCH 24 L (27-31) pg MCHC 33 (31-36) g/dl RDW 16 H (10.5-15) % Plt Count 214 (150-450) 10^3/ul MPV 9 (7.4-10.4) um3 Neut % (Auto) 62.1 (38-83) % Lymph % (Auto) 29.4 (25-47) % [place] % (Auto) 5.5 (1-9) % Eos % (Auto) 2.0 (0-6) % Baso % (Auto) 1.0 (0-2) % Absolute Neuts (auto) 6.4 (1.5-7.7) 10^3/ul Absolute Lymphs (auto) 3.0 (1.0-4.8) 10^3/ul Absolute Monos (auto) 0.6 (0-0.8) 10^3/ul Absolute Eos (auto) 0.2 (0-0.6) 10^3/ul Absolute Basos (auto) 0.1 (0-0.2) 10^3/ul Absolute Nucleated RBC 0 10^3/ul Nucleated RBC % 0 Sodium 137 (133-145) mmol/L Potassium 4.2 (3.5-5.0) mmol/L Chloride 105 (101-111) mmol/L Carbon Dioxide 26 (22-32) mmol/L Anion Gap 6 (2-11) mmol/L BUN 9 (6-24) mg/dL Creatinine 0.57 (0.51-0.95) mg/dL Est GFR ( Amer) 152.7 (>60) Est GFR (Non-Af Amer) 118.7 (>60) BUN/Creatinine Ratio 15.8 (8-20) Glucose 104 H (70-100) mg/dL Lactic Acid 1.1 (0.5-2.0) mmol/L Calcium 9.3 (8.6-10.3) mg/dL Total Bilirubin 0.30 (0.2-1.0) mg/dL AST 12 L (13-39) U/L ALT 18 (7-52) U/L Alkaline Phosphatase 46 (34-104) U/L Total Creatine Kinase 57 (10-223) U/L CK-MB (CK-2) 1.3 (0.6-6.3) ng/mL Troponin I 0.00 (<0.04) ng/mL C-Reactive Protein 18.03 H (< 5.00) mg/L Total Protein 7.2 (6.4-8.9) g/dL Albumin 3.9 (3.2-5.2) g/dL Globulin 3.3 (2-4) g/dL Albumin/Globulin Ratio 1.2 (1-3) Beta HCG, Quant < 0.60 mIU/mL Result Diagrams: 10/05/17 19:05 10/05/17 19:05 Lab Statement: Any lab studies that have been ordered have been reviewed, and results considered in the medical decision making process. - CT CTA chest/thorax CT Interpretation: No Acute Changes CT Interpretation Completed By: Radiologist - No evidence of aortic dissection. No evidence of pulmonary embolus is noted. - EKG 17:24 EKG Rhythm: Sinus Rhythm - 66 BPM EKG Interpretation: No STEMI Course/Dx - Course Course Of Treatment: UA shows no proteinuria. No concern for nephrotic syndrome. CTA is negative for aneurism. Weakness and fatigue may be related to UTI. Recommend outpatient follow up with pinsetter mechanic automatic regarding tearing CP. The pt reports she has seen a pinsetter mechanic automatic in the past for her CP. Follow up with cardiology micropaleontologist in 2-3 days. Follow up with PCP in 2-3 days. - Diagnoses Provider Diagnoses: UTI (urinary tract infection), Chest pain, unspecified Discharge - Discharge Plan Condition: Stable Disposition: HOME Prescriptions: Ciprofloxacin TAB* [Cipro 500 MG TAB*] 500 mg PO BID #14 tab Patient Education Materials: Chest Pain (ED), Urinary Tract Infection in Women (DC) Referrals: Carmencita Petit MD [Primary Care Provider] - 2 Days Marquez Garcia MD [Medical Doctor] - 2 Days Additional Instructions: Follow up with cardiology micropaleontologist in 2-3 days. Follow up with PCP in 2-3 days. RETURN TO THE EMERGENCY DEPARTMENT FOR CHANGING OR WORSENING SYMPTOMS The documentation as recorded by the Rolando monterroso Stephanie accurately reflects the service I personally performed and the decisions made by , Ulises Bates MD.
== END 2017-10-05 21:55 | disposition home or self-care (01) ==
LOC: ED 17:16
DX: R07.9 Chest pain, unspecified (principal); N39.0 Urinary tract infection, site not specified; Z87.891 Personal history of nicotine dependence; Z88.3 Allergy status to other anti-infective agents; Z88.5 Allergy status to narcotic agent; Z88.2 Allergy status to sulfonamides
CPT/HCPCS: 36415; 71275; 80053; 81003; 81015; 82550; 82553; 83605; 84484; 84702; 85025; 86140; 86618; 87086; 93005; 99283; A9270-GY; Q9967

== ENCOUNTER 2018-09-20 13:17 | Emergency (ER) | payer BC ==
--- OUTSIDE RECORDS SUMMARY | 2018-09-20 13:24 | XMS REPORT | Continuity of Care Document ---
:1980 External Reference #:[id number] Author Name Shirley Bonner Care Team Providers Name Role Phone Carmencita Petit MD Primary Care Physician Unavailable Payers Type Date Identification Numbers Payment Provider Subscriber Policy Number: [id number] [employer] Isra Gallegos PayID: [id number] [address] [address] [place] [address] Advance Directives Description No Information Available Problems Date Description Provider Status Onset: 10/19/2016 Depressive disorder Carmencita Petit M.D. Active Onset: 10/19/2016 Iron deficiency anemia Carmencita Petit M.D. Active Note: due to hemorrhoidal bleeding Onset: 10/19/2016 Obesity Carmencita Petit M.D. Active Onset: 01/26/2018 Mild intermittent asthma Carmencita Petit M.D. Active Onset: 01/26/2018 Impaired fasting glycaemia Carmencita Petit M.D. 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 Tobacco Use Start: Unknown Former Cigarette Smoker Smoked 3/4 ppd for End: Unknown 11 years Smoking Status Reviewed: 08/30/18 Former Cigarette Smoker Smoked 3/4 ppd for 11 years ETOH Use Rarely consumes alcohol Tobacco Use Start: Unknown Patient is a former End: Unknown smoker Recreational Drug Use Denies Drug Use Exercise Type/Frequency Exercises regularly [employer] 3x week Allergies, Adverse Reactions, Alerts Date Description Reaction Status Severity Comments 10/19/2016 Codeine Active stomach issue 10/19/2016 Cephalexin Active hives 10/19/2016 Bactrim Active hives Medications Medication Date Status Form Strength Qnty SIG Indications Ordering Provider Turmeric 04/28 Active Capsules 5-1000mg 90cap Take one s capsule/tablet Sarbjit, daily by mouth M.DZachary Onetouch Ultra 01/26 Active Strips 100un test twice a R73.01 Carmencita its day and as Marisabel, needed M.DZachary Ventolin HFA 01/12 Active Aerosol 108(90Bas 8gm 1 unit puff J45.20 Marie e) every 6 hours harmeet Khan/Act as needed Wrist Splint 11/25 Active Misc 2unit use nightly to G56.03 s help with zeke Schaffer in M.D. the right and left hand Sertraline HCL 01/15 Active Tablets 100mg 90tab 1 by mouth F32.9 s every day Katie Petit Ciprofloxacin 08/19 Hx Tablets 500mg 6tabs 1 by mouth N39.0 twice a day Kailey, - for 3 days 08/23 Cleocin 08/19 Hx Cream 2% 40gm one N76.0 applicatorful Kailey, - per vagina at 08/23 bedime x days Plaquenil 07/04 Hx Tablets 200mg 60tab Take 2 by s mouth daily Sarbjit, - ongoing M.D. 08/19 Pool-3 & 04/28 Hx Capsules 1200mg 90cap take one Pool-6 Fish s capsule/tablet Sarbjit, Oil - daily by mouth M.D. 05/30 Methotrexate 04/20 Hx Tablets 2.5mg 30tab take 4 M06.4 s capsules/table Sarbjit, - ts by mouth M.D. 05/30 once weekly (not taking) Folic Acid 04/20 Hx Tablets 1mg 90tab take one M06.4 s capsule/tablet Sarbjit, - daily by mouth M.D. 05/30 (not taking) Vitamin B12 04/05 Hx Tablets 1000mcg 30tab 1 by mouth ER s every day Leticia Petit.D. 05/30 Metformin HCL 05/16 Hx Tablets 500mg 90tab 1 by mouth R73.01 Carmencita s every day (not Petit, - taking) M.D. 05/30 Slow Fe 01/18 Hx Tablets 142(45Fe) 30tab 1 by mouth ER mg s every day Sarbjit, - M.D. 05/30 Amoxicillin 12/27 Hx Capsules 500mg 14cap one tab twice Zunilda s a day Jae, - LIQUEFIER 01/11 Plaquenil 12/14 Hx Tablets 200mg 60tab Take 2 by M06.4 s mouth daily Sarbjit, - ongoing M.D. 04/20 B12 Fast 12/04 Hx Tablets 5000mcg 90tab sublingual Dispers s daily Sarbjit, - M.D. 04/04 Sertraline HCL 01/15 Hx Tablets 50mg 30tab 1 by mouth F32.9 s every day for Varn, - N.P. 01/15 Iron 00/00 Hx Tablets 325(65Fe) 1 by mouth Unknown /0000 mg every day prn - 01/11 Zoloft 00/00 Hx Tablets 50mg 1 by mouth Unknown /0000 every day - 01/15 Metamucil 00/00 Hx Powder 63% Unknown [facility] /0000 Fiber - 01/15 Ciprofloxacin 00/00 Hx Tablets 500mg 1 tab by mouth Unknown HCL /0000 twice a day - x710/13 Ibuprofen 00/00 Hx Tablets 200mg as needed Unknown /0000 - 05/30 Immunizations CPT Code Status Date Vaccine Lot # [id number] Refused 10/06/2017 Influenza Virus Vaccine, Quadrivalent, Split, Preservative Free Vital Signs Date Vital Result Comment 08/30/2018 2:57pm Height 63 inches 5'3" Weight 251.00 lb Heart Rate 84 /min BP Systolic Sitting 102 mmHg BP Diastolic Sitting 68 mmHg Pain Level 3 BMI (Body Mass Index) 44.5 kg/m2 08/23/2018 9:53am Height 63 inches 5'3" Weight 252.00 lb Heart Rate 115 /min BP Systolic Sitting 128 mmHg BP Diastolic Sitting 80 mmHg Body Temperature 97.2 F O2 % BldC Oximetry 98 % BMI (Body Mass Index) 44.6 kg/m2 08/19/2018 10:56am Height 63 inches 5'3" Weight 253.12 lb Heart Rate 67 /min BP Systolic 142 mmHg BP Diastolic 88 mmHg Body Temperature 96.5 F O2 % BldC Oximetry 97 % BMI (Body Mass Index) 44.8 kg/m2 05/30/2018 4:48pm Height 63 inches 5'3" Weight 269.00 lb Heart Rate 72 /min BP Systolic Sitting 114 mmHg BP Diastolic Sitting 62 mmHg Respiratory Rate 14 /min Pain Level 3 BMI (Body Mass Index) 47.6 kg/m2 04/20/2018 11:14am Height 63 inches 5'3" Weight 273.50 lb Heart Rate 77 /min BP Systolic Sitting 108 mmHg BP Diastolic Sitting 71 mmHg Respiratory Rate 14 /min Pain Level 6 BMI (Body Mass Index) 48.4 kg/m2 04/05/2018 9:18am Height 63 inches 5'3" Weight 272.00 lb Heart Rate 78 /min BP Systolic Sitting 110 mmHg BP Diastolic Sitting 70 mmHg O2 % BldC Oximetry 98 % BMI (Body Mass Index) 48.2 kg/m2 02/12/2018 9:11am Height 64 inches 5'4" Weight 271.00 lb Heart Rate 74 /min BP Systolic Sitting 92 mmHg Lue lg cuff BP Diastolic Sitting 60 mmHg Lue lg cuff Respiratory Rate 16 /min O2 % BldC Oximetry 98 % on Ra BMI (Body Mass Index) 46.5 kg/m2 01/26/2018 11:56am Height 64 inches 5'4" Weight 271.00 lb Heart Rate 86 /min BP Systolic Sitting 188 mmHg BP Diastolic Sitting 80 mmHg O2 % BldC Oximetry 97 % BMI (Body Mass Index) 46.5 kg/m2 01/18/2018 9:59am Height 64 inches 5'4" Weight 280.00 lb Heart Rate 90 /min BP Systolic Sitting 130 mmHg BP Diastolic Sitting 86 mmHg Respiratory Rate 14 /min Pain Level 4 BMI (Body Mass Index) 48.1 kg/m2 01/12/2018 8:10am Height 64 inches 5'4" Weight 269.00 lb Heart Rate 80 /min BP Systolic Sitting 124 mmHg BP Diastolic Sitting 86 mmHg Respiratory Rate 14 /min O2 % BldC Oximetry 98 % BMI (Body Mass Index) 46.2 kg/m2 Neck Circumference in inches 18 12/14/2017 1:46pm Height 64 inches 5'4" Weight 266.00 lb Heart Rate 72 /min BP Systolic Sitting 106 mmHg BP Diastolic Sitting 70 mmHg Respiratory Rate 8 /min Pain Level 6 BMI (Body Mass Index) 45.7 kg/m2 11/25/2017 8:47am Height 64 inches 5'4" Weight 260.00 lb Heart Rate 99 /min BP Systolic Sitting 147 mmHg BP Diastolic Sitting 95 mmHg Respiratory Rate 14 /min Pain Level 4 BMI (Body Mass Index) 44.6 kg/m2 10/13/2017 10:12am Weight 264.00 lb Heart Rate 79 /min BP Systolic Sitting 130 mmHg BP Diastolic Sitting 80 mmHg O2 % BldC Oximetry 99 % 10/06/2017 8:19am Weight 260.00 lb Heart Rate 79 /min BP Systolic Sitting 130 mmHg BP Diastolic Sitting 80 mmHg O2 % BldC Oximetry 97 % 01/15/2017 2:15pm Weight 254.00 lb Heart Rate 96 /min BP Systolic 134 mmHg BP Diastolic 62 mmHg Body Temperature 97.7 F O2 % BldC Oximetry 98 % 10/23/2016 8:55am Height 64 inches 5'4" Weight 250.00 lb Heart Rate 78 /min BP Systolic 128 mmHg BP Diastolic 76 mmHg Respiratory Rate 18 /min Body Temperature 98.6 F BMI (Body Mass Index) 42.9 kg/m2 10/19/2016 11:58am Weight 257.12 lb Heart Rate 66 /min BP Systolic 120 mmHg BP Diastolic 70 mmHg Body Temperature 98.4 F O2 % BldC Oximetry 99 % Results Test Date Facility Test Result H/L Range Note Ua Routine 08/23/2018 [facility] Ua Specific [place] 1.010 Ua PH 7 Ua Color medium yellow Ua Appera cloudy Ua WBC + Ua Protein - Ua Glucose norm Ua Ketones - Ua Bilirubin - Ua Urobilinogen norm Ua Nitrite - Ua Occult Blood 250 Laboratory test 08/23/2018 [facility] Test neg finding Urine Laboratory test 08/23/2018 [facility] Gardnerella/Yea SEE RESULT 1, [address]: Vaginal [place] [address] [phone] Laboratory test 08/23/2018 [facility] C Reactive 22.07 mg/L High <8.[address] [place] [address] [phone] CBC Auto Diff 08/23/2018 [facility] White Blood 9.0 10^3/uL N 3.5-[address] Count .8 [place] [address] [phone] Red Blood Count 4.93 10^6/uL N 4.00-5.40 Hemoglobin 12.3 g/dL N 12.0-16.0 Hematocrit 37 % N 35-47 Mean Corpuscular Volume 76 fL Low 80-97 Mean Corpuscular Hemoglobin 25 pg Low 27-31 Mean Corpuscular HGB Conc 33 g/dL N 31-36 Red Cell Distribution Width 16 % High 10.5-15 Platelet Count 205 10^3/uL N 150-450 Mean Platelet Volume 9.3 fL N 7.4-10.4 Abs Neutrophils 5.7 10^3/uL N 1.5-7.7 Abs Lymphocytes 2.7 10^3/uL N 1.0-4.8 Abs Monocytes 0.4 10^3/uL N 0-0.8 Abs Eosinophils 0.2 10^3/uL N 0-0.6 Abs Basophils 0.1 10^3/uL N 0-0.2 Abs Nucleated RBC 0 10^3/uL Granulocyte % 63.4 % Lymphocyte % 29.8 % Monocyte % 4.4 % Eosinophil % 1.7 % Basophil % 0.7 % Nucleated Red Blood Cells % 0 Laboratory test 08/23/2018 [facility] Erythrocyte Sed 32 mm/Hr High 0-[address] [place] [address] [phone] Laboratory test 08/23/2018 [facility] Amylase 17 U/L Low 29- [address] [place] [address] [phone] Lipase < 10 U/L Low 11.0-82.0 Hemoglobin A1c (Glyco HGB) 5.4 % N 4.0-5.6 3 Comp Metabolic Panel 08/23/2018 [facility] Sodium 139 mmol/L N 135-[address] [place] [address] [phone] Potassium 4.4 mmol/L N 3.5-5.0 Chloride 104 mmol/L N 101-111 Co2 Carbon Dioxide 28 mmol/L N 22-32 Anion Gap 7 mmol/L N 2-11 Glucose 86 mg/dL N 70-100 Blood Urea Nitrogen 9 mg/dL N 6-24 Creatinine 0.58 mg/dL N 0.51-0.95 BUN/Creatinine Ratio 15.5 N 8-20 Calcium 9.5 mg/dL N 8.6-10.3 Total Protein 6.6 g/dL N 6.4-8.9 Albumin 4.1 g/dL N 3.2-5.2 Globulin 2.5 g/dL N 2-4 Albumin/Globulin Ratio 1.6 N 1-3 Total Bilirubin 0.40 mg/dL N 0.2-1.0 Alkaline Phosphatase 57 U/L N 34-104 Alt 28 U/L N 7-52 Ast 15 U/L N 13-39 Egfr Non- 115.7 >60 Egfr 140.0 >60 4 Laboratory test 08/23/2018 [facility] Erythrocyte Sed <pending> finding [address] [place] [address] [phone] C Reactive Protein <pending> Ua Routine 08/19/2018 [facility] Ua Specific [place] 1.030 Ua PH 5 Ua Color yellow Ua Appera clear Ua WBC trace Ua Protein neg Ua Glucose norm Ua Ketones neg Ua Bilirubin neg Ua Urobilinogen norm Ua Nitrite neg Ua Occult Blood neg Urine Culture And 08/19/2018 [facility] Urine SEE RESULT 5 , [address] [place] [address] [phone] CBC Auto Diff 05/26/2018 [facility] White Blood 8.6 10^3/uL N 3.5-[address] Count 0.8 [place] [address] [phone] Red Blood Count 4.74 10^6/uL N 4.00-5.40 Hemoglobin 11.5 g/dL Low 12.0-16.0 Hematocrit 35 % N 35-47 Mean Corpuscular Volume 74 fL Low 80-97 8 Mean Corpuscular Hemoglobin 24 pg Low 27-31 Mean Corpuscular HGB Conc 33 g/dL N 31-36 Red Cell Distribution Width 16 % High 10.5-15 Platelet Count 192 10^3/uL N 150-450 Mean Platelet Volume 9.4 um3 N 7.4-10.4 Abs Neutrophils 5.4 10^3/uL N 1.5-7.7 Abs Lymphocytes 2.5 10^3/uL N 1.0-4.8 Abs Monocytes 0.4 10^3/uL N 0-0.8 Abs Eosinophils 0.2 10^3/uL N 0-0.6 Abs Basophils 0.1 10^3/uL N 0-0.2 Abs Nucleated RBC 0 10^3/uL Granulocyte % 63.3 % N 38-83 Lymphocyte % 29.6 % N 25-47 Monocyte % 4.2 % N 0-7 Eosinophil % 2.2 % N 0-6 Basophil % 0.7 % N 0-2 Nucleated Red Blood Cells % 0 Comp Metabolic Panel 05/26/2018 [facility] Sodium 139 mmol/L N 135-[address] [place] [address] [phone] Potassium 4.1 mmol/L N 3.5-5.0 Chloride 105 mmol/L N 101-111 Co2 Carbon Dioxide 25 mmol/L N 22-32 Anion Gap 9 mmol/L N 2-11 Glucose 111 mg/dL High 70-100 Blood Urea Nitrogen 9 mg/dL N 6-24 Creatinine 0.59 mg/dL N 0.51-0.95 BUN/Creatinine Ratio 15.3 N 8-20 Calcium 9.3 mg/dL N 8.6-10.3 Total Protein 6.8 g/dL N 6.4-8.9 Albumin 4.1 g/dL N 3.2-5.2 Globulin 2.7 g/dL N 2-4 Albumin/Globulin Ratio 1.5 N 1-3 Total Bilirubin 0.40 mg/dL N 0.2-1.0 Alkaline Phosphatase 48 U/L N 34-104 Alt 31 U/L N 7-52 Ast 23 U/L N 13-39 Egfr Non- 114.1 >60 Egfr 138.0 >60 9 Laboratory test 05/26/2018 [facility] Erythrocyte Sed 29 mm/Hr High 0-14 [address] [place] [address] [phone] C Reactive Protein 10.86 mg/L High <8.01 11 Cortisol Free 04/14/2018 [facility] Urine Free 13 mcg/24h 3.5 -45 12 24HR Urine [address] [place] [address] [phone] Urine Collection Duration 24 h Urine Total Volume 1450 mL 13 Laboratory test 04/08/2018 [facility] Vitamin B12 884 pg/mL N 180-914 [address] [place] [address] [phone] Lyme Disease Serology Negative Negative 15 HIV 1/2 AB 04/08/2018 [facility] HIV 1 2 Nonreactive Nonreactive 16 Evaluation [address] [employer] [address] [phone] Basic 04/08/2018 [facility] Sodium 139 mmol/L N 135-[address] [place] [address] [phone] Potassium 4.4 mmol/L N 3.5-5.0 Chloride 103 mmol/L N 101-111 Co2 Carbon Dioxide 27 mmol/L N 22-32 Anion Gap 9 mmol/L N 2-11 Glucose 111 mg/dL High 70-100 Blood Urea Nitrogen 8 mg/dL N 6-24 Creatinine 0.69 mg/dL N 0.51-0.95 BUN/Creatinine Ratio 11.6 N 8-20 Calcium 9.0 mg/dL N 8.6-10.3 Egfr Non- 95.2 >60 Egfr 115.2 >60 17 Laboratory test 04/08/2018 [facility] Methylmalonic 0.10 <= 0.40 18 finding [address] That{img} [facility] Acid Mma nmol/[place] [address] [phone] Heavy Metal 04/08/2018 [facility] Arsenic <1 ng/mL 0-12 19 [address]{img} [place] [address] [phone] Lead <1.0 g/dL 0.0-4.9 20 Mercury <1 ng/mL 0-9 21 Cadmium <0.2 ng/mL 0.0-4.[address] [address] [place] [address] [facility] Guardian First Name ANANYA Bhat Guardian Last Name PRESTON GALLEGOS Venous/Capillary Heavy Metals Venous Patient Race WHITE Submitting Laboratory Phone [phone] Laboratory test 04/08/2018 [facility] Erythrocyte Sed 39 mm/Hr High 0-14 [address] [place] [address] [phone] C Reactive Protein 15.29 mg/L High <8.01 26 CBC Auto Diff 04/08/2018 [facility] White Blood 7.6 10^3/uL N 3.5-10.[address] [place] [address] [phone] Red Blood Count 4.79 10^6/uL N 4.00-5.40 Hemoglobin 11.5 g/dL Low 12.0-16.0 Hematocrit 36 % N 35-47 Mean Corpuscular Volume 75 fL Low 80-97 Mean Corpuscular Hemoglobin 24 pg Low 27-31 Mean Corpuscular HGB Conc 32 g/dL N 31-36 Red Cell Distribution Width 17 % High 10.5-15 Platelet Count 212 10^3/uL N 150-450 Mean Platelet Volume 8.8 um3 N 7.4-10.4 Abs Neutrophils 5.0 10^3/uL N 1.5-7.7 Abs Lymphocytes 2.1 10^3/uL N 1.0-4.8 Abs Monocytes 0.3 10^3/uL N 0-0.8 Abs Eosinophils 0.2 10^3/uL N 0-0.6 Abs Basophils 0 10^3/uL N 0-0.2 Abs Nucleated RBC 0 10^3/uL Granulocyte % 65.2 % N 38-83 Lymphocyte % 27.7 % N 25-47 Monocyte % 4.2 % N 0-7 Eosinophil % 2.3 % N 0-6 Basophil % 0.6 % N 0-2 Nucleated Red Blood Cells % 0 Comp Metabolic Panel 04/08/2018 [facility] Sodium 138 mmol/L N 135-[address] [place] [address] [phone] Potassium 4.5 mmol/L N 3.5-5.0 Chloride 102 mmol/L N 101-111 Co2 Carbon Dioxide 28 mmol/L N 22-32 Anion Gap 8 mmol/L N 2-11 Glucose 115 mg/dL High 70-100 Blood Urea Nitrogen 8 mg/dL N 6-24 Creatinine 0.68 mg/dL N 0.51-0.95 BUN/Creatinine Ratio 11.8 N 8-20 Calcium 9.0 mg/dL N 8.6-10.3 Total Protein 6.8 g/dL N 6.4-8.9 Albumin 4.0 g/dL N 3.2-5.2 Globulin 2.8 g/dL N 2-4 Albumin/Globulin Ratio 1.4 N 1-3 Total Bilirubin 0.50 mg/dL N 0.2-1.0 Alkaline Phosphatase 50 U/L N 34-104 Alt 26 U/L N 7-52 Ast 25 U/L N 13-39 Egfr Non- 96.8 >60 Egfr 117.2 >60 27 Laboratory test 04/05/2018 [facility] Hemoglobin A1c 5.7 5-7 finding Laboratory test 01/13/2018 [facility] Erythrocyte Sed 38 mm/Hr High 0-14 [address] [place] [address] [phone] CRP High Sensitivity 20.86 mg/L 29 C Reactive Protein 19.71 mg/L High < 5.00 30 CBC Auto Diff 01/13/2018 [facility] White Blood 7.8 10^3/uL N 3.5-10.[address] [place] [address] [phone] Red Blood Count 4.55 10^6/uL N 4.0-5.4 Hemoglobin 10.8 g/dL Low 12.0-16.0 Hematocrit 33 % Low 35-47 Mean Corpuscular Volume 72 fL Low 80-97 31 Mean Corpuscular Hemoglobin 24 pg Low 27-31 Mean Corpuscular HGB Conc 33 g/dL N 31-36 Red Cell Distribution Width 17 % High 10.5-15 Platelet Count 185 10^3/uL N 150-450 Mean Platelet Volume 8.8 um3 N 7.4-10.4 Abs Neutrophils 5.1 10^3/uL N 1.5-7.7 Abs Lymphocytes 2.1 10^3/uL N 1.0-4.8 Abs Monocytes 0.3 10^3/uL N 0-0.8 Abs Eosinophils 0.2 10^3/uL N 0-0.6 Abs Basophils 0.1 10^3/uL N 0-0.2 Abs Nucleated RBC 0 10^3/uL Granulocyte % 65.9 % N 38-83 Lymphocyte % 26.8 % N 25-47 Monocyte % 3.8 % N 0-7 Eosinophil % 2.8 % N 0-6 Basophil % 0.7 % N 0-2 Nucleated Red Blood Cells % 0 Comp Metabolic Panel 01/13/2018 [facility] Sodium 138 mmol/L Low 139-[address] [place] [address] [phone] Potassium 4.4 mmol/L N 3.5-5.0 Chloride 104 mmol/L N 101-111 Co2 Carbon Dioxide 26 mmol/L N 22-32 Anion Gap 8 mmol/L N 2-11 Glucose 160 mg/dL High 70-100 Blood Urea Nitrogen 10 mg/dL N 6-24 Creatinine 0.64 mg/dL N 0.51-0.95 BUN/Creatinine Ratio 15.6 N 8-20 Calcium 8.7 mg/dL N 8.6-10.3 Total Protein 6.5 g/dL N 6.4-8.9 Albumin 3.7 g/dL N 3.2-5.2 Globulin 2.8 g/dL N 2-4 Albumin/Globulin Ratio 1.3 N 1-3 Total Bilirubin 0.30 mg/dL N 0.2-1.0 Alkaline Phosphatase 56 U/L N 34-104 Alt 19 U/L N 7-52 Ast 14 U/L N 13-39 Egfr Non- 103.9 >60 Egfr 133.6 >60 32 Urinalysis Profile 12/14/2017 [facility] Urine Color Yellow [address] [place] [address] [phone] Urine Appearance Cloudy Urine Specific [place] 1.020 N 1.010-1.030 Urine pH 6.0 N 5-9 Urine Urobilinogen Negative Negative Urine Ketones Negative Negative Urine Protein Negative Negative Urine Leukocytes 3+ Abnormal Negative Urine Blood Negative Negative * * Abnormal Negative 33 Urine Nitrite Negative Negative Urine Bilirubin Negative Negative Urine Glucose Negative Negative Urine White Blood Cell 3+(>20/hpf) Abnormal Absent Urine Red Blood Cell 2+(6-10/hpf) Abnormal Absent Urine Bacteria Absent Absent Urine Squamous Epithelial Cell Present Abnormal Absent Urine Culture And 12/14/2017 [facility] Urine SEE RESULT [address] [place] [address] [phone] Anca AB Ser If 11/25/2017 [facility] C-Anca Negative Negative [address] [place] [address] [phone] P-Anca Negative Negative 36 Laboratory test 11/25/2017 [facility] Angiotensin 19 U/L 8 - 53 [address] [place] [address] [phone] C Reactive Protein 12.87 mg/L High < 5.00 38 Erythrocyte Sed Rate 44 mm/Hr High 0-14 39 Protein 11/25/2017 [facility] Total 7.2 g/dL 6.3 - Electrophoresis [address] Protein(Pep) 7.9 [place] [address] [phone] Albumin 3.3 g/dL Abnormal 3.4-4.7 Alpha-1 Globulin 0.3 g/dL 0.1-0.3 Alpha-2 Globulin 1.0 g/dL 0.6-1.0 Beta Globulin 1.2 g/dL 0.7-1.2 Gamma Globulin 1.5 g/dL 0.6-1.6 Albumin/Globulin Ratio 0.84 Impression See Comment 40 Celiac Panel 11/25/2017 [facility] Immunoglobulin A 266 mg/dL 61 - [address] [place] [address] [phone] Tissue Transglutaminase IgA Ab <1.2 U/mL 41 Celiac Interpretation See Comment 42 Celiac Hla 11/25/2017 [facility] Hla-Dqa1 SEE BELOW [address] [place] [address] [phone] [id number] SEE BELOW 44 Celiac Gene Pairs Present? Yes Celiac Gene Interpretation See Comment 45 Hla B27 11/25/2017 [facility] Hla B27 Negative [address] [place] [address] [phone] Hla B27 Interp See Comment 47 Laboratory test 11/25/2017 [facility] Cyclic Citrullinated < 15.6 U [address] [place] [address] [phone] Aso (Antistreptolysin O) Titer 200 IU/mL IU/mL Abnormal <200 Iu/mL 49 Tick-Borne Panel 11/25/2017 [facility] Babesia Negative Negative PCR Blood [address] [place] [address] [phone] Babesia ducani Negative Negative Babesia divergens/Mo-1 Negative Negative 50 Anaplasma phagocytophilum Negative Negative Ehrlichia chaffeensis Negative Negative Ehrlichia ewingii/canis Negative Negative Ehrlichia muris-like Negative Negative 51 B. miyamotoi PCR, B Negative Negative 52 Vitamin B12 And 11/25/2017 [facility] Vitamin B12 204 pg/mL N 180-914 [address] [place] [address] [phone] Folic Acid (Folate) 10.13 ng/mL >3.99 54 Laboratory test 11/25/2017 [facility] Thyroperoxidase AB 0.44 IU /mL N <[address] [place] [address] [phone] Laboratory test 10/13/2017 [facility] Anti Nuclear 0.5 U [address] [place] [address] [phone] Erythrocyte Sed Rate 41 mm/Hr High 0-14 Anti Double Stranded Dna AB <12.3 IU/mL 57 Rheumatoid Factor <15 IU/mL <15 58 C Reactive Protein 17.85 mg/L High < 5.00 59 Creatine Kinase(CK) 56 U/L N 10-223 Lyme Disease Serology Negative Negative 60 Ssa/SSB Abs Igg 10/13/2017 [facility] SS-A/Ro Antibody <0.[address] [place] [address] [phone] SS-B/La Antibody <0.2 U 62 Urinalysis Profile 10/05/2017 [facility] Urine Color Yellow [address] [place] [address] [phone] Urine Appearance Cloudy Urine Specific [place] > 1.060 High 1.010-1.030 Urine pH 5.0 N 5-9 Urine Urobilinogen Negative Negative Urine Ketones Negative Negative Urine Protein Negative Negative Urine Leukocytes 3+ Abnormal Negative Urine Blood 1+ Abnormal Negative Urine Nitrite Negative Negative Urine Bilirubin Negative Negative Urine Glucose Negative Negative Urine White Blood Cell 3+(>20/hpf) Abnormal Absent Urine Red Blood Cell 3+(>10/hpf) Abnormal Absent Urine Bacteria Absent Absent Urine Squamous Epithelial Cell Present Abnormal Absent Urine Culture And 10/05/2017 [facility] Urine Culture SEE RESULT [address] [place] [address] [phone] Laboratory test 10/05/2017 [facility] Troponin-I 0.00 ng/mL < 0.[address] (TnI) [place] [address] [phone] Lyme Disease Serology Negative Negative 64 CBC Auto Diff 10/05/2017 [facility] White Blood 10.2 10^3/uL N 3.5-10.[address] [place] [address] [phone] Red Blood Count 5.03 10^6/uL N 4.0-5.4 Hemoglobin 12.1 g/dL N 12.0-16.0 Hematocrit 37 % N 35-47 Mean Corpuscular Volume 73 fL Low 80-97 65 Mean Corpuscular Hemoglobin 24 pg Low 27-31 Mean Corpuscular HGB Conc 33 g/dL N 31-36 Red Cell Distribution Width 16 % High 10.5-15 Platelet Count 214 10^3/uL N 150-450 Mean Platelet Volume 9 um3 N 7.4-10.4 Abs Neutrophils 6.4 10^3/uL N 1.5-7.7 Abs Lymphocytes 3.0 10^3/uL N 1.0-4.8 Abs Monocytes 0.6 10^3/uL N 0-0.8 Abs Eosinophils 0.2 10^3/uL N 0-0.6 Abs Basophils 0.1 10^3/uL N 0-0.2 Abs Nucleated RBC 0 10^3/uL Granulocyte % 62.1 % N 38-83 Lymphocyte % 29.4 % N 25-47 Monocyte % 5.5 % N 1-9 Eosinophil % 2.0 % N 0-6 Basophil % 1.0 % N 0-2 Nucleated Red Blood Cells % 0 Comp Metabolic Panel 10/05/2017 [facility] Sodium 137 mmol/L N 133-[address] [place] [address] [phone] Potassium 4.2 mmol/L N 3.5-5.0 Chloride 105 mmol/L N 101-111 Co2 Carbon Dioxide 26 mmol/L N 22-32 Anion Gap 6 mmol/L N 2-11 Glucose 104 mg/dL High 70-100 Blood Urea Nitrogen 9 mg/dL N 6-24 Creatinine 0.57 mg/dL N 0.51-0.95 BUN/Creatinine Ratio 15.8 N 8-20 Calcium 9.3 mg/dL N 8.6-10.3 Total Protein 7.2 g/dL N 6.4-8.9 Albumin 3.9 g/dL N 3.2-5.2 Globulin 3.3 g/dL N 2-4 Albumin/Globulin Ratio 1.2 N 1-3 Total Bilirubin 0.30 mg/dL N 0.2-1.0 Alkaline Phosphatase 46 U/L N 34-104 Alt 18 U/L N 7-52 Ast 12 U/L Low 13-39 Egfr Non- 118.7 >60 Egfr 152.7 >60 66 Laboratory test 10/05/2017 [facility] Creatine 57 U/L N 10- [address] Kinase(CK) [place] [address] [phone] C Reactive Protein 18.03 mg/L High < 5.00 67 Troponin-I (TnI) 0.00 ng/mL <0.04 CKMB 10/05/2017 [facility] CKMB ng/mL 1.3 ng/mL N 0.6-6.[address] [place] [address] [phone] Laboratory test 10/05/2017 [facility] HCG < 0.60 [address] mIU/[place] [address] [phone] Lactic Acid 1.1 mmol/L N 0.5-2.0 69 CBC Auto Diff 10/05/2017 [facility] White Blood 10.1 10^3/uL N 3.5-10.[address] [place] [address] [phone] Red Blood Count 4.92 10^6/uL N 4.0-5.4 Hemoglobin 11.7 g/dL Low 12.0-16.0 Hematocrit 36 % N 35-47 Mean Corpuscular Volume 73 fL Low 80-97 Mean Corpuscular Hemoglobin 24 pg Low 27-31 Mean Corpuscular HGB Conc 33 g/dL N 31-36 Red Cell Distribution Width 16 % High 10.5-15 Platelet Count 203 10^3/uL N 150-450 Mean Platelet Volume 9 um3 N 7.4-10.4 Abs Neutrophils 5.9 10^3/uL N 1.5-7.7 Abs Lymphocytes 3.4 10^3/uL N 1.0-4.8 Abs Monocytes 0.4 10^3/uL N 0-0.8 Abs Eosinophils 0.2 10^3/uL N 0-0.6 Abs Basophils 0.1 10^3/uL N 0-0.2 Abs Nucleated RBC 0 10^3/uL Granulocyte % 59.0 % N 38-83 Lymphocyte % 34.2 % N 25-47 Monocyte % 4.0 % N 1-9 Eosinophil % 1.9 % N 0-6 Basophil % 0.9 % N 0-2 Nucleated Red Blood Cells % 0 Inr/Protime 10/05/2017 [facility] Inr 0.90 N 0.77-1.[address] [place] [address] [phone] Laboratory test 10/05/2017 [facility] Partial 34.5 seconds N 26.0-36.[address] [address] PTT [phone] Comp Metabolic 10/05/2017 [facility] Sodium 133 mmol/L N 133- [address] [place] [address] [phone] Potassium 3.8 mmol/L N 3.5-5.0 Chloride 102 mmol/L N 101-111 Co2 Carbon Dioxide 25 mmol/L N 22-32 Anion Gap 6 mmol/L N 2-11 Glucose 130 mg/dL High 70-100 Blood Urea Nitrogen 10 mg/dL N 6-24 Creatinine 0.64 mg/dL N 0.51-0.95 BUN/Creatinine Ratio 15.6 N 8-20 Calcium 8.9 mg/dL N 8.6-10.3 Total Protein 7.0 g/dL N 6.4-8.9 Albumin 3.9 g/dL N 3.2-5.2 Globulin 3.1 g/dL N 2-4 Albumin/Globulin Ratio 1.3 N 1-3 Total Bilirubin 0.40 mg/dL N 0.2-1.0 Alkaline Phosphatase 44 U/L N 34-104 Alt 19 U/L N 7-52 Ast 13 U/L N 13-39 Egfr Non- 103.9 >60 Egfr 133.6 >60 70 Laboratory test 10/05/2017 [facility] Creatine 64 U/L N 10- [address] Kinase(CK) [place] [address] [phone] Troponin-I (TnI) 0.01 ng/mL <0.04 HCG < 0.60 mIU/mL 71 Laboratory test 02/01/2017 [facility] Surgical Pathology SEE RESULT [address] [place] [address] [phone] Laboratory test 02/01/2017 [facility] Clotest SEE RESULT [address] [place] [address] [phone] Laboratory test 01/19/2017 [facility] TSH (Thyroid Stim 2.41 N 0.34- [address] Horm) mcIU/mL 5.60 [place] [address] [phone] Lipid Profile 01/19/2017 [facility] Triglycerides 143 mg/dL N 75 (Trig/Chol/HDL) [address] [place] [address] [phone] Cholesterol 175 mg/dL N 76 HDL Cholesterol 35.5 mg/dL N 77 LDL Cholesterol 111 mg/dL N 78 Comp Metabolic Panel 01/19/2017 [facility] Sodium 136 mmol/L N 133-[address] [place] [address] [phone] Potassium 4.1 mmol/L N 3.5-5.0 Chloride 104 mmol/L N 101-111 Co2 Carbon Dioxide 27 mmol/L N 22-32 Anion Gap 5 mmol/L N 2-11 Glucose 101 mg/dL High 70-100 Blood Urea Nitrogen 8 mg/dL N 6-24 Creatinine 0.64 mg/dL N 0.51-0.95 BUN/Creatinine Ratio 12.5 N 8-20 Calcium 9.0 mg/dL N 8.6-10.3 Total Protein 6.6 g/dL N 6.4-8.9 Albumin 3.7 g/dL N 3.2-5.2 Globulin 2.9 g/dL N 2-4 Albumin/Globulin Ratio 1.3 N 1-3 Total Bilirubin 0.50 mg/dL N 0.2-1.0 Alkaline Phosphatase 53 U/L N 34-104 Alt 20 U/L N 7-52 Ast 15 U/L N 13-39 Egfr Non- 104.4 N >60 Egfr 134.3 N >60 79 Urine Culture And 10/19/2016 [facility] Urine Culture SEE RESULT [address] [place] [address] [phone] 1 [id number] 2 SEE RESULT BELOW Name: ANANYA FELICIANO : [address]: Carmencita Petit MD Acct: [id number] Unit: [id number] AGE: 38 Location: [facility] Re08/23/18 SEX: F Status: REG REF SPEC: [id number] RAVEN: 08/23/18-[address] [facility] [address]: Carmencita Petit MD REQ: [id number] RECD: 08/23/18 STATUS: COMP _ SOURCE: VAGINAL SPDESC: ORDERED: Marin,Yeast DNA COMMENTS: [id number] QUERIES: Would you like to order Trichomonas Vaginalis testing? No Procedure Result Reported Site Gardnerella/Yeast: Vaginal DNA Final 08/24/18- 1255 ML Organism 1 Negative Gardnerella Organism 2 Negative Mago The presence of G. vaginalis, although suggestive, is not diagnostic for bacterial vaginosis. Results should be interpreted in conjuction with other clinical and laboratory data available. Women with vaginal discharge should be evaluated for risk factors of cervicitis and pelvic inflammatory disease, toxic shock syndrome (S.aureus), and if present, evaluated for organisms not included in this assay such as N. gonorrhoeae, C. trachomatis, Mobiluncus, Mycoplasma and/or Prevotella. Mixed infections may occur. The performance of this test on patient specimens collected during or immediately after antimicrobial therapy is unknown. The presence or absence of Mago species, or G. vaginalis cannot be used as a test for therapeutic success or failure. * ML - Main Lab . END OF REPORT DEPARTMENT OF PATHOLOGY, [address] [place] [address] Berto Paul M.D. Director [facility] # [id number] 3 Therapeutic target for the treatment of diabetes mellitus patients is <7% HBA1C, and in selective patients <6.0%. Please refer to [place] [employer] diabetic care guidelines for further information. 4 Because ethnic data is not always readily available, this report includes an eGFR for both -Americans and non- Americans. The National Kidney Disease Education Program (NKDEP) does not endorse the use of the MDRD equation for patients that are not between the ages of 18 and 70, are , have extremes of body size, muscle mass, or nutritional status, or are non- or non-. According to the National Kidney Foundation, irrespective of diagnosis, the stage of the disease is based on the level of kidney function: Stage Description GFR(mL/min/1.73 m(2)) 1 Kidney damage with normal or decreased GFR 90 2 Kidney damage with mild decrease in GFR 60-89 3 Moderate decrease in GFR 30-59 4 Severe decrease in GFR 15-29 5 Kidney failure <15 (or dialysis) 5 [id number] 6 SEE RESULT BELOW Name: ANANYA FELICIANO : [address]: Bharti Bonner MD Acct: [id number] Unit: [id number] AGE: 38 Location: [facility] Re08/19/18 SEX: F Status: REG REF SPEC: [id number] RAVEN: 08/19/18-[address] [facility] [address]: Bharti Bonner MD REQ: [id number] RECD: 08/19/18 STATUS: COMP _ SOURCE: URINE SPDESC: ORDERED: Urine Culture COMMENTS: [id number] Urine Source: Clean Catch Procedure Result Reported Site Urine Culture Final 08/20/18- 1604 ML No Growth (<1,000 CFU/mL) * ML - Main Lab . END OF REPORT DEPARTMENT OF PATHOLOGY, [address] [place] [address] Berto Paul M.D. Director [facility] # [id number] 7 Please check labs 2 days before follow up 8 Consistent with Previous Results Reported on 10/12/17 9 Because ethnic data is not always readily available, this report includes an eGFR for both -Americans and non- Americans. The National Kidney Disease Education Program (NKDEP) does not endorse the use of the MDRD equation for patients that are not between the ages of 18 and 70, are , have extremes of body size, muscle mass, or nutritional status, or are non- or non-. According to the National Kidney Foundation, irrespective of diagnosis, the stage of the disease is based on the level of kidney function: Stage Description GFR(mL/min/1.73 m(2)) 1 Kidney damage with normal or decreased GFR 90 2 Kidney damage with mild decrease in GFR 60-89 3 Moderate decrease in GFR 30-59 4 Severe decrease in GFR 15-29 5 Kidney failure <15 (or dialysis) 10 Please check labs 2 days before follow up 11 Please check labs 2 days before follow up 12 [id number] 13 ADDITIONAL INFORMATION This test was developed and its performance characteristics determined by [facility] in a manner consistent with CLIA requirements. This test has not been cleared or approved by the U.S. Food and Drug Administration. Test Performed by: [facility] - [address] [address] 14 Normal Range 180 to 914 Indeterminate Range 145 to 180 Deficient Range <145 15 No evidence of antibodies to B. burgdorferi detected. False negative results may occur in recently infected patients (<=2 weeks) due to low or undetectable antibody levels to B. burgdorferi. If recent exposure is suspected, a second sample should be collected and tested in 2-4 weeks. Test Performed by: [facility] - [address] [address] 16 It is recognized that currently available assays for the detection of antibodies to HIV-1 and/or HIV-2 may not detect all infected individuals. HIV antibodies may be undetectable in some stages of the infection and in some clinical conditions. The performance of this assay has not been established for populations of infants or children. Assayed by Chemiluminescence Microparticle Immunoassay on the Siemens Advia Centaur CP. Values obtained with different methods or kits cannot be used interchangeably.The diagnostic specificity of the ADVIA Centaur 1/O/2 Enhanced assay in the low risk population was 99.90% (6052/6058) with a 95% confidence interval of 99.78 to 99.96%. 17 Because ethnic data is not always readily available, this report includes an eGFR for both -Americans and non- Americans. The National Kidney Disease Education Program (NKDEP) does not endorse the use of the MDRD equation for patients that are not between the ages of 18 and 70, are , have extremes of body size, muscle mass, or nutritional status, or are non- or non-. According to the National Kidney Foundation, irrespective of diagnosis, the stage of the disease is based on the level of kidney function: Stage Description GFR(mL/min/1.73 m(2)) 1 Kidney damage with normal or decreased GFR 90 2 Kidney damage with mild decrease in GFR 60-89 3 Moderate decrease in GFR 30-59 4 Severe decrease in GFR 15-29 5 Kidney failure <15 (or dialysis) 18 ADDITIONAL INFORMATION This test was developed and its performance characteristics determined by [facility] in a manner consistent with CLIA requirements. This test has not been cleared or approved by the U.S. Food and Drug Administration. Test Performed by: [facility] - [address] [address] 19 ADDITIONAL INFORMATION This test was developed and its performance characteristics determined by [facility] in a manner consistent with CLIA requirements. This test has not been cleared or approved by the U.S. Food and Drug Administration. 20 ADDITIONAL INFORMATION Testing performed by Inductively Coupled Plasma-Mass Spectrometry (ICP-MS). This test was developed and its performance characteristics determined by [facility] in a manner consistent with CLIA requirements. This test has not been cleared or approved by the U.S. Food and Drug Administration. 21 ADDITIONAL INFORMATION This test was developed and its performance characteristics determined by [facility] in a manner consistent with CLIA requirements. This test has not been cleared or approved by the U.S. Food and Drug Administration. 22 ADDITIONAL INFORMATION This test was developed and its performance characteristics determined by [facility] in a manner consistent with CLIA requirements. This test has not been cleared or approved by the U.S. Food and Drug Administration. [address] 24 Test Performed by: [facility] [address] [place] [address] 25 Please check labs 2 days before follow up 26 Please check labs 2 days before follow up 27 Because ethnic data is not always readily available, this report includes an eGFR for both -Americans and non- Americans. The National Kidney Disease Education Program (NKDEP) does not endorse the use of the MDRD equation for patients that are not between the ages of 18 and 70, are , have extremes of body size, muscle mass, or nutritional status, or are non- or non-. According to the National Kidney Foundation, irrespective of diagnosis, the stage of the disease is based on the level of kidney function: Stage Description GFR(mL/min/1.73 m(2)) 1 Kidney damage with normal or decreased GFR 90 2 Kidney damage with mild decrease in GFR 60-89 3 Moderate decrease in GFR 30-59 4 Severe decrease in GFR 15-29 5 Kidney failure <15 (or dialysis) 28 Please check 2 days before follow up UA ALREADY DONE CANCEL PER PT 29 Low risk: <1.00 Average risk: 1.00-3.00 High risk: >3.00 30 Acute inflammation: >10.00 31 Consistent with Previous Results Reported on 10/05/17 32 Because ethnic data is not always readily available, this report includes an eGFR for both -Americans and non- Americans. The National Kidney Disease Education Program (NKDEP) does not endorse the use of the MDRD equation for patients that are not between the ages of 18 and 70, are , have extremes of body size, muscle mass, or nutritional status, or are non- or non-. According to the National Kidney Foundation, irrespective of diagnosis, the stage of the disease is based on the level of kidney function: Stage Description GFR(mL/min/1.73 m(2)) 1 Kidney damage with normal or decreased GFR 90 2 Kidney damage with mild decrease in GFR 60-89 3 Moderate decrease in GFR 30-59 4 Severe decrease in GFR 15-29 5 Kidney failure <15 (or dialysis) 33 *Ascorbic acid is present which may interfere with detection of blood. 34 SEE RESULT BELOW Name: ANANYA FELICIANO : [address]: Rodriguez Schaffer MD Acct: [id number] Unit: [id number] AGE: 37 Location: [facility] Re12/14/17 SEX: F Status: REG REF SPEC: [id number] RAVEN: 12/14/[address]: Rodriguez Schaffer MD REQ: [id number] RECD: 12/14/17 STATUS: VENUS SMITH DR: Carmencita Petit MD _ SOURCE: URINE SPDESC: ORDERED: Urine Culture Procedure Result Reported Site Urine Culture Final 12/15/17- 1425 ML Organism 1 STREP GROUP B [place] Count >100,000 (Many) CFU/ML Susceptibility testing of penicillins and other B-lactams approved by FDA for treatment of Streptococcus pyogenes (Group A Strep) and Streptococcus agalactiae (Group B Strep) is not necessary for clinical purposes and need not be done routinely, since as with vancomycin, resistant strains have not been recognized. (CLSI G192-B85;p.66) Positive isolates will be saved for one week. Please call the Microbiology Laboratory if further susceptibility testing is needed. * ML - Main Lab . END OF REPORT DEPARTMENT OF PATHOLOGY, [address] [place] [address] Berto Paul M.D. Director [facility] # [id number] 35 Please check labs this week 36 Negative for cANCA and pANCA patterns by immunofluorescence. ADDITIONAL INFORMATION This test was developed and its performance characteristics determined by [facility] in a manner consistent with CLIA requirements. This test has not been cleared or approved by the U.S. Food and Drug Administration. Test Performed by: [facility] - [place] [id number] 37 Test Performed by: [facility] [place] [address] 38 Acute inflammation: >10.00 39 Please check labs this week 40 RESULT: No apparent monoclonal protein on serum electrophoresis. Test Performed by: [facility] - [address] [address] 41 REFERENCE VALUE <4.0 (Negative) Test Performed by: [facility] - [address] [address] 42 Negative serology. Celiac disease unlikely. However, approximately 10% of patients with celiac disease are seronegative. Also, patients who are already adhering to a gluten-free diet may be seronegative. If celiac disease is highly clinically suspected, consider HLA-DQ typing. Test Performed by: [facility] - [address] [address] 43 RESULT: 02:01,05:01 REFERENCE VALUE Not Applicable 44 RESULT: 02:01,02:02 DQ Serologic Equivalent: 2,2 REFERENCE VALUE Not Applicable 45 These genes are permissive for celiac disease. The absence of HLA celiac permissive genes would make the presence of celiac disease unlikely. However, these genes can also be present in the normal population. ADDITIONAL INFORMATION Method: Molecular typing of HLA antigens performed using reverse SSOP and/or SSP methods, reported as serological equivalents and low to medium resolution molecular values. Performing Laboratory CLIA# [id number] Test Performed by: [facility] - [address] [address] 46 REFERENCE VALUE Not Applicable 47 RESULT: HLA-B27 antigen was not detected. ADDITIONAL INFORMATION Method: Flow Cytometry Performing Laboratory CLIA# [id number] Test Performed by: [facility] - [address] [place] [address] 48 REFERENCE VALUE <20.0 (Negative) Test Performed by: [facility] - [address] [address] 49 Normal values may vary with age, season and geographic area. Titers above upper limits may be indicative of infection, however only a two dilution rise in titer is required to be considered significant. ASO titer will usually rise above upper limits within one week of exposure, increase to peak levels at 3-5 weeks and return to baseline level at 6-12 twelve months. 50 ADDITIONAL INFORMATION This test was developed and its performance characteristics determined by [facility] in a manner consistent with CLIA requirements. This test has not been cleared or approved by the U.S. Food and Drug Administration. 51 ADDITIONAL INFORMATION This test was developed and its performance characteristics determined by [facility] in a manner consistent with CLIA requirements. This test has not been cleared or approved by the U.S. Food and Drug Administration. 52 ADDITIONAL INFORMATION This test was developed and its performance characteristics determined by [facility] in a manner consistent with CLIA requirements. This test has not been cleared or approved by the U.S. Food and Drug Administration. Test Performed by: [facility] - [facility] [address] [place] [address] 53 Normal Range 180 to 914 Indeterminate Range 145 to 180 Deficient Range <145 54 Please check labs this week 55 Please check labs this week 56 REFERENCE VALUE <=1.0 (Negative) Test Performed by: [facility] - [facility] [address] [place] [address] 57 REFERENCE VALUE <30.0 (Negative) Test Performed by: [address] [address] 58 Test Performed by: [address] [address] 59 Acute inflammation: >10.00 60 Serologic response to B. burgdorferi infection is not detected, but cannot rule out early infection during which low or undetectable antibody levels to B. burgdorferi may be present. If clinically indicated, a new serum specimen should be submitted in 7-14 days. Test Performed by: [facility] - [facility] [address] [place] [address] 61 REFERENCE VALUE <1.0 (Negative) 62 REFERENCE VALUE <1.0 (Negative) Test Performed by: [facility] - [address] [address] 63 SEE RESULT BELOW Name: ANANYA FELICIANO : [address]: Ulises Bates MD Acct: [id number] Unit: [id number] AGE: 37 Location: ED Re10/05/17 SEX: F Status: DEP ER SPEC: [id number] RAVEN: 10/05/[address]: Ulises Bates MD REQ: [id number] RECD: 10/05/17 STATUS: VENUS SMITH DR: Carmencita Petit MD _ SOURCE: URINE [facility]: ORDERED: Urine Culture Procedure Result Reported Site Urine Culture Final 10/07/17- 928 ML No growth of clinically significant organisms * ML - MAIN LAB ([facility]) . END OF REPORT * ML=Testing performed at Main Lab DEPARTMENT OF PATHOLOGY, [address] [place] [address] Berto Paul M.D. Director [facility] # [id number] 64 Serologic response to B. burgdorferi infection is not detected, but cannot rule out early infection during which low or undetectable antibody levels to B. burgdorferi may be present. If clinically indicated, a new serum specimen should be submitted in 7-14 days. Test Performed by: [facility] - [facility] [address] [facility], [place] [address] 65 Consistent with Previous Results Reported on 10/05/17. 66 Because ethnic data is not always readily available, this report includes an eGFR for both -Americans and non- Americans. The National Kidney Disease Education Program (NKDEP) does not endorse the use of the MDRD equation for patients that are not between the ages of 18 and 70, are , have extremes of body size, muscle mass, or nutritional status, or are non- or non-. According to the National Kidney Foundation, irrespective of diagnosis, the stage of the disease is based on the level of kidney function: Stage Description GFR(mL/min/1.73 m(2)) 1 Kidney damage with normal or decreased GFR 90 2 Kidney damage with mild decrease in GFR 60-89 3 Moderate decrease in GFR 30-59 4 Severe decrease in GFR 15-29 5 Kidney failure <15 (or dialysis) 67 Acute inflammation: >10.00 68 <5.0 Negative 5.0 - 25.0 Indeterminate (Repeat testing recommended after 72 hours) >25.0 Positive Perimenopausal women can display HCG levels of up to 20 mIU/mL 69 [facility] Severe Sepsis and Septic Shock Management Bundle Measure requires all lactic acids initially measuring >2.0 mmol/L be repeated. 70 Because ethnic data is not always readily available, this report includes an eGFR for both -Americans and non- Americans. The National Kidney Disease Education Program (NKDEP) does not endorse the use of the MDRD equation for patients that are not between the ages of 18 and 70, are , have extremes of body size, muscle mass, or nutritional status, or are non- or non-. According to the National Kidney Foundation, irrespective of diagnosis, the stage of the disease is based on the level of kidney function: Stage Description GFR(mL/min/1.73 m(2)) 1 Kidney damage with normal or decreased GFR 90 2 Kidney damage with mild decrease in GFR 60-89 3 Moderate decrease in GFR 30-59 4 Severe decrease in GFR 15-29 5 Kidney failure <15 (or dialysis) 71 <5.0 Negative 5.0 - 25.0 Indeterminate (Repeat testing recommended after 72 hours) >25.0 Positive Perimenopausal women can display HCG levels of up to 20 mIU/mL 72 SEE RESULT BELOW Name: ANANYA FELICIANO : [address]: Aurelio Paz MD Acct: [id number] Unit: [id number] AGE: 36 Location: ENDO Re02/01/17 SEX: F Status: DEP REF SPEC: [id number] RAVEN: 02/01/17- SUBM DR: Aurelio Paz MD REQ: [id number] RECD: 02/01/176675 STATUS: CHIDI SMITH DR: Elena Willis LIQUEFIER _ ORDERED: LEVEL 4 FINAL DIAGNOSIS Duodenum, biopsy: -- Benign small intestinal mucosa with no significant pathologic abnormalities. -- No evidence of villous blunting or increased intraepithelial lymphocytes. CLINICAL HISTORY No history given POST-OPERATIVE DIAGNOSIS Esophagus - normal, stomach - gastritis, biopsied; duodenum - normal GROSS DESCRIPTION The specimen is received in formalin labeled, Biopsy Duodenum, and consists of a 0.4 x 0.3 x 0.2 cm speckled fitzpatrick-pink irregular to polypoid soft tissue fragment which is entirely submitted in one cassette. Signed (signature on file) Enedina Cho MD 1053 END OF REPORT * ML=Testing performed at Main Lab DEPARTMENT OF PATHOLOGY, [address] [place] [address] Berto Paul M.D. Director [facility] # [id number] 73 SEE RESULT BELOW Name: ANANYA FELICIANO : [address]: Aurelio Paz MD Acct: [id number] Unit: [id number] AGE: 36 Location: ENDO Re02/01/17 SEX: F Status: REG REF SPEC: [id number] RAVEN: 02/01/17-[address]: Aurelio Paz MD REQ: [id number] RECD: 02/01/17 STATUS: VENUS SMITH DR: Elena Willis LIQUEFIER _ SOURCE: GAS ANTRUM SPDESC: ORDERED: Clotest Procedure Result Reported Site Clotest Final 02/02/17- 0757 ML Clotest Negative * ML - MAIN LAB ([facility]) . END OF REPORT * ML=Testing performed at Main Lab DEPARTMENT OF PATHOLOGY, [address] [place] [address] Berto Paul M.D. Director [facility] # [id number] 74 FASTING 10 HOUR 75 Desirable <150 Borderline high 150-199 High 200-499 Very High >500 76 Desirable <200 Borderline high 200-239 High >239 77 Low <40 Desirable: 40-60 High: >60 78 Desirable: <100 mg/dL Near Optimal: 100-129 mg/dL Borderline High: 130-159 mg/dL High: 160-189 mg/dL Very High: >189 mg/dL 79 Because ethnic data is not always readily available, this report includes an eGFR for both -Americans and non- Americans. The National Kidney Disease Education Program (NKDEP) does not endorse the use of the MDRD equation for patients that are not between the ages of 18 and 70, are , have extremes of body size, muscle mass, or nutritional status, or are non- or non-. According to the National Kidney Foundation, irrespective of diagnosis, the stage of the disease is based on the level of kidney function: Stage Description GFR(mL/min/1.73 m(2)) 1 Kidney damage with normal or decreased GFR 90 2 Kidney damage with mild decrease in GFR 60-89 3 Moderate decrease in GFR 30-59 4 Severe decrease in GFR 15-29 5 Kidney failure <15 (or dialysis) 80 SEE RESULT BELOW Name: PRESTON BENJAMINANANYA M : [address]: Carmencita Petit MD Acct: [id number] Unit: [id number] AGE: 36 Location: [facility] Re10/19/16 SEX: F Status: REG REF SPEC: [id number] RAVEN: 10/19/16-1358 [facility] DR: Carmencita Petit MD REQ: [id number] RECD: 10/19/16 STATUS: COMP _ SOURCE: URINE SPDESC: ORDERED: Urine Culture COMMENTS: [id number] Urine Source: Random Procedure Result Reported Site Urine Culture Final 10/21/16833 ML No growth of clinically significant organisms * ML - MAIN LAB ([facility]) . END OF REPORT * ML=Testing performed at Main Lab DEPARTMENT OF PATHOLOGY, [address] [place] [address] Berto Paul M.D. Director [facility] # [id number] Procedures Date Code Description Status 05/04/2018 72488 Nerve Conduction 07-08 Studies Completed 05/04/2018 82391 Needle Electromyography Complete, Five Or More Muscles Completed Studied 05/04/2018 26101 Needle Electromyography Each Extremity W/Related Completed Paraspinal Areas 01/27/2018 72946 Diffusing Capacity Completed 01/27/2018 81607 Plethysmography Determination Lung Volumes & Per Airway Completed Resist 01/27/2018 40746 Pulmonary Function><Bronchodil Completed 01/19/2018 54145 Sleep Study Unattended,HRT Rate,Oxygen Sat,Resp Completed Effort/Airflow 10/19/2017 97113 Stress Test Completed 10/23/2016 81331 Anoscopy Completed 10/13/2016 28108961 Colonoscopy Completed Encounters Type Date Location Provider Dx Diagnosis Office Visit 08/30/2018 Rheumatology Rodriguez Schaffer, M06.4 Inflammatory 2:40p Services Of Stacey Wilson polyarthropathy R79.82 Elevated C-reactive protein (CRP) R70.0 Elevated erythrocyte sedimentation rate R20.8 Other disturbances of skin sensation Office Visit 08/23/2018 9:50a [facility] Internal Medicine Carmencita Petit, R30.0 Dysuria - Jax Wilson R10.10 Upper abdominal pain, unspecified N92.6 Irregular menstruation, unspecified R73.01 Impaired fasting glucose N76.0 Acute vaginitis Office Visit 08/19/2018 11:00a [facility] Internal Bharti Bonner, N39.0 Urinary tract Medicine - infection, site [place] not specified N76.0 Acute vaginitis K92.2 Gastrointestinal hemorrhage, unspecified Office Visit 05/30/2018 Rheumatology Rodriguez 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 D64.9 Anemia, unspecified M25.552 Pain in left hip Office Visit 04/05/2018 9:10a [facility] Internal Carmencita Petit, Z00.00 Encntr for Medicine - Katie general adult [place] medical exam w/o abnormal findings R20.2 Paresthesia of skin R73.01 Impaired fasting glucose Office Visit 02/12/2018 9:15a Pulmonology And Marie G47.33 Obstructive sleep Sleep Services Of MD Bill apnea (adult) [facility] (pediatric) J45.909 Unspecified asthma, uncomplicated E66.01 Morbid (severe) obesity due to excess calories Office Visit 01/26/2018 11:50a [facility] Internal Carmencita Petit, R73.01 Impaired Medicine - Katie fasting glucose [place] R51 Headache Office Visit 01/18/2018 Rheumatology Rodriguez M06.4 Inflammatory 9:40a Services Of Stacey Schaffer M.D. polyarthropathy R70.0 Elevated erythrocyte sedimentation rate Z79.899 Other usp (current) drug therapy M54.5 Low back pain D64.9 Anemia, unspecified Office Visit 01/12/2018 8:30a Pulmonology And Sleep Marie Bill, R06.83 Snoring [facility] J45.20 Mild intermittent asthma, uncomplicated E66.01 Morbid (severe) obesity due to excess calories Z68.42 Body mass index (BMI) 45.0-49.9, adult Office Visit 12/14/2017 Rheumatology Rodriguez M06.4 Inflammatory 1:40p Services Of Stacey Schaffer M.D. 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 R31.9 Hematuria, unspecified Office Visit 11/25/2017 9:00a Rheumatology Services Rodriguez Schaffer M79.1 Myalgia Of Stacey Wilson R70.0 Elevated erythrocyte sedimentation rate M54.5 Low back pain M06.4 Inflammatory polyarthropathy R20.8 Other disturbances of skin sensation G56.03 Carpal tunnel syndrome, bilateral upper limbs R06.83 Snoring Office Visit 10/13/2017 10:10a [facility] Internal Carmencita M25.50 Pain in Medicine - Katie Petit unspecified joint [place] Office Visit 10/06/2017 8:30a [facility] Internal Carmencita R07.89 Other chest pain Medicine - Katie Petit [place] M79.1 Myalgia Office Visit 01/15/2017 2:20p [facility] Internal Elena Willis, F32.9 Major depressive Medicine - N.P. disorder, single [place] episode, unspecified E78.00 Pure hypercholesterolemia, unspecified Office Visit 10/23/2016 8:45a Surgical Christian Barrios K64.8 Other hemorrhoids [facility] Katie Geller D50.0 Iron deficiency anemia secondary to blood loss (chronic) R10.30 Lower abdominal pain, unspecified Office Visit 10/19/2016 11:50a [facility] Internal Carmencita K64.8 Other hemorrhoids Medicine - Katie [place] D50.0 Iron deficiency anemia secondary to blood loss (chronic) R10.30 Lower abdominal pain, unspecified B34.9 Viral infection, unspecified Office Visit 10/14/2016 [facility] K92.2 Gastrointestinal 2:42p [facility] M.D. hemorrhage, Hospitalists unspecified F32.9 Major depressive disorder, single episode, unspecified [facility] K92.2 Gastrointestinal 2:41p [facility]oc,[facility] [place]ino[place] D.O. hemorrhage, Hospitalists unspecified F32.9 Major depressive disorder, single episode, unspecified Office Visit 09/28/2012 2:45p Orthopedic Teodoro Burrell, 836.0 Dislocation Knee Services Of M.D. Tear Of Medial C.M.A. Cartilage Or Meniscus Curren Office Visit 09/12/2012 2:00p Orthopedic Teodoro Burrell, 836.0 Dislocation Knee Services Of M.D. Tear Of Medial C.M.A. Cartilage Or Meniscus Curren 727.51 Cyst Synovial Popliteal Space Office Visit 11/25/2010 1:00p Orthopedic Chaim Lundberg, 845.00 Sprains & Services Of C.M.A. M.D. Strains Ankle Unspec Site Plan of Treatment Future Appointment(s):12/28/2018 11:00 am - Rodriguez Schaffer M.D. at Rheumatology [facility]08/30/2018 - Rodriguez Schaffer M.D.M06.4 Inflammatory eumnnyvmwqfjrllZ01.82 Elevated C-reactive protein (CRP)R70.0 Elevated erythrocyte sedimentation rateFollow up:Follow up in 3 months or 4 months or sooner if ksftjrS05.8 Other disturbances of skin sensationNew Orders:EMG w/ Nerve Conduct Study, Lower, Ordered: 08/30/18
--- OUTSIDE RECORDS SUMMARY | 2018-09-20 13:24 | XMS REPORT | Continuity of Care Document ---
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 08/19 Newport-3 & 04/28 Hx Capsules 1200mg 90cap take one Newport-6 Fish s capsule/tablet Sarbjit, Oil - daily [...] twice Zunilda s a day Jae, - SPRING TIER 01/11 Plaquenil 12/14 Hx Tablets 200mg 60tab [...] CPT Code Status Date Vaccine Lot # [id number] Refused 10/06/2017 Influenza Virus Vaccine, Quadrivalent, Split, Preservative Free Vital Signs Date Vital Result Comment 08/23/2018 9:53am Height 63 inches 5'3" Weight [...] Result H/L Range Note Ua Routine 08/23/2018 [employer] In House Ua Specific [place] 1.010 Ua PH 7 Ua Color medium yellow Ua Appera cloudy Ua WBC + Ua Protein - Ua Glucose norm Ua Ketones - Ua Bilirubin - Ua Urobilinogen norm Ua Nitrite - Ua Occult Blood 250 Ua Routine 08/19/2018 [employer] In House Ua Specific [place] 1.030 Ua PH 5 Ua Color yellow Ua Appera clear Ua WBC trace Ua Protein neg Ua Glucose norm Ua Ketones neg Ua Bilirubin neg Ua Urobilinogen norm Ua Nitrite neg Ua Occult Blood neg Urine Culture And 08/19/2018 [facility] Urine SEE RESULT 1 , [address] [place] [place] [address] [phone] CBC Auto Diff 05/26/2018 [facility] White Blood 8.6 10^3/uL N 3.5-[address] Count 0.8 [place], [place] [id number] [phone] Red Blood Count 4.74 10^6/uL N 4.00-5.40 Hemoglobin 11.5 g/dL Low 12.0-16.0 Hematocrit 35 % N 35-47 Mean Corpuscular Volume 74 fL Low 80-97 4 Mean Corpuscular Hemoglobin 24 pg Low 27-31 [...] Cells % 0 Comp Metabolic Panel 05/26/2018 [facility] Sodium 139 mmol/L N 135-145 [address] [place] [address] [phone] Potassium 4.1 mmol/L N 3.5-5.0 Chloride 105 [...] Egfr Non- 114.1 >60 Egfr 138.0 >60 5 Laboratory test 05/26/2018 [facility] Erythrocyte Sed 29 mm/Hr High 0-14 [address] [place] [address] [phone] C Reactive Protein 10.86 mg/L High <8.01 7 Cortisol Free 04/14/2018 [facility] Urine Free 13 mcg/24h 3.5 -45 8 24HR Urine [address] [employer] [place] [address] [phone] Urine Collection Duration 24 h Urine Total Volume 1450 mL 9 Laboratory test 04/08/2018 [facility] Vitamin B12 884 pg/mL N 180-914 10 finding [address] [place] [address] [phone] Lyme Disease Serology Negative Negative 11 HIV 1/2 AB 04/08/2018 [facility] HIV 1 2 Nonreactive Nonreactive 12 Evaluation [address] [email or web address] [address] [phone] Basic 04/08/2018 [facility] Sodium 139 mmol/L N 135-[address] [place] [address] [phone] Potassium 4.4 mmol/L N 3.5-5.0 Chloride 103 mmol/L N 101-111 Co2 Carbon Dioxide 27 mmol/L N 22-32 Anion Gap 9 mmol/L N 2-11 Glucose 111 mg/dL High 70-100 Blood Urea Nitrogen 8 mg/dL N 6-24 Creatinine 0.69 mg/dL N 0.51-0.95 BUN/Creatinine Ratio 11.6 N 8-20 Calcium 9.0 mg/dL N 8.6-10.3 Egfr Non- 95.2 >60 Egfr 115.2 >60 13 Laboratory test 04/08/2018 [facility] Methylmalonic 0.10 <= 0.40 14 finding [address] [facility] Acid Mma nmol/[place] [address] [phone] Heavy Metal 04/08/2018 [facility] Arsenic <1 ng/mL 0-[address] [place] [address] [phone] Lead <1.0 g/dL 0.0-4.9 16 Mercury <1 ng/mL 0-9 17 Cadmium <0.2 ng/mL 0.0-4.[address] [facility] [place] [address] [facility] Guardian First Name ANANYA Bhat Guardian Last Name PRESTON GALLEGOS Venous/Capillary Heavy Metals Venous Patient Race WHITE Submitting Laboratory Phone [phone] Laboratory test 04/08/2018 [facility] Erythrocyte Sed 39 mm/Hr High 0-14 [address] [place] [address] [phone] C Reactive Protein 15.29 mg/L High <8.01 22 CBC Auto Diff 04/08/2018 [facility] White Blood 7.6 10^3/uL N 3.5-10.[address] [place] [address] [phone] Red Blood Count 4.79 10^6/uL N 4.00-5.40 [...] Cells % 0 Comp Metabolic Panel 04/08/2018 [facility] Sodium 138 mmol/L N 135-[address] [place] [address] [phone] Potassium 4.5 mmol/L N 3.5-5.0 Chloride 102 [...] Egfr Non- 96.8 >60 Egfr 117.2 >60 23 Laboratory test 04/05/2018 [facility] Hemoglobin A1c 5.7 5-7 finding Laboratory test 01/13/2018 [facility] Erythrocyte Sed 38 mm/Hr High 0-14 [address] [place] [address] [phone] CRP High Sensitivity 20.86 mg/L 25 C Reactive Protein 19.71 mg/L High < 5.00 26 CBC Auto Diff 01/13/2018 [facility] White Blood 7.8 10^3/uL N 3.5-10.[address] [place] [address] [phone] Red Blood Count 4.55 10^6/uL N 4.0-5.4 Hemoglobin 10.8 g/dL Low 12.0-16.0 Hematocrit 33 % Low 35-47 Mean Corpuscular Volume 72 fL Low 80-97 27 Mean Corpuscular Hemoglobin 24 pg Low 27-31 [...] Cells % 0 Comp Metabolic Panel 01/13/2018 [facility] Sodium 138 mmol/L Low 139-145 [address] [place] [address] [phone] Potassium 4.4 mmol/L N 3.5-5.0 Chloride 104 [...] Egfr Non- 103.9 >60 Egfr 133.6 >60 28 Urinalysis Profile 12/14/2017 [facility] Urine Color Yellow [address] [place] [address] [phone] Urine Appearance Cloudy Urine Specific [place] 1.020 N 1.010-1.030 Urine pH 6.0 N 5-9 Urine Urobilinogen Negative Negative Urine Ketones Negative Negative Urine Protein Negative Negative Urine Leukocytes 3+ Abnormal Negative Urine Blood Negative Negative * * Abnormal Negative 29 Urine Nitrite Negative Negative Urine Bilirubin Negative Negative Urine Glucose Negative Negative Urine White Blood Cell 3+(>20/hpf) Abnormal Absent Urine Red Blood Cell 2+(6-10/hpf) Abnormal Absent Urine Bacteria Absent Absent Urine Squamous Epithelial Cell Present Abnormal Absent Urine Culture And 12/14/2017 [facility] Urine SEE RESULT [address] Culture BELOW [place], [place] [address] [phone] Anca AB Ser If 11/25/2017 [facility] C-Anca Negative Negative [address] [place] [address] [phone] P-Anca Negative Negative 32 Laboratory test 11/25/2017 [facility] Angiotensin 19 U/L 8 - 53 [address] Converting Enzyme [place], [place] [address] [phone] C Reactive Protein 12.87 mg/L High < 5.00 34 Erythrocyte Sed Rate 44 mm/Hr High 0-14 35 Protein 11/25/2017 [facility] Total 7.2 g/dL 6.3 - Electrophoresis [address] Protein(Pep) 7.9 [place], [place] [address] [phone] Albumin 3.3 g/dL Abnormal 3.4-4.7 Alpha-1 Globulin 0.3 g/dL 0.1-0.3 Alpha-2 Globulin 1.0 g/dL 0.6-1.0 Beta Globulin 1.2 g/dL 0.7-1.2 Gamma Globulin 1.5 g/dL 0.6-1.6 Albumin/Globulin Ratio 0.84 Impression See Comment 36 Celiac Panel 11/25/2017 [facility] Immunoglobulin A 266 mg/dL 61 - [address] [place] [address] [phone] Tissue Transglutaminase IgA Ab <1.2 U/mL 37 Celiac Interpretation See Comment 38 Celiac Hla 11/25/2017 [facility] Hla-Dqa1 SEE BELOW [address] [place] [address] [phone] Hla-DQB1 SEE BELOW 40 Celiac Gene Pairs Present? Yes Celiac Gene Interpretation See Comment 41 Hla B27 11/25/2017 [facility] Hla B27 Negative [address] [place] [address] [phone] Hla B27 Interp See Comment 43 Laboratory test 11/25/2017 [facility] Cyclic Citrullinated < 15.6 U [address] [place] [address] [phone] Aso (Antistreptolysin O) Titer 200 IU/mL IU/mL Abnormal <200 Iu/mL 45 Tick-Borne Panel 11/25/2017 [facility] Babesia Negative Negative PCR Blood [address] [facility] [place] [address] [phone] Babesia ducani Negative Negative Babesia divergens/Mo-1 Negative Negative 46 Anaplasma phagocytophilum Negative Negative Ehrlichia chaffeensis Negative Negative Ehrlichia ewingii/canis Negative Negative Ehrlichia muris-like Negative Negative 47 B. miyamotoi PCR, B Negative Negative 48 Vitamin B12 And 11/25/2017 [facility] Vitamin B12 204 pg/mL N 180-914 49 Folate Serum [address] [place] [address] [phone] Folic Acid (Folate) 10.13 ng/mL >3.99 50 Laboratory test 11/25/2017 [facility] Thyroperoxidase AB 0.44 IU /mL N <9 51 finding [address] [place] [address] [phone] Laboratory test 10/13/2017 [facility] Anti Nuclear 0.5 U 52 finding [address] [facility] [place] [address] [phone] Erythrocyte Sed Rate 41 mm/Hr High 0-14 Anti Double Stranded Dna AB <12.3 IU/mL 53 Rheumatoid Factor <15 IU/mL <15 54 C Reactive Protein 17.85 mg/L High < 5.00 55 Creatine Kinase(CK) 56 U/L N 10-223 Lyme Disease Serology Negative Negative 56 Ssa/SSB Abs Igg 10/13/2017 [facility] SS-A/Ro Antibody <0.2 U 57 [address] [place] [address] [phone] SS-B/La Antibody <0.2 U 58 Urinalysis Profile 10/05/2017 [facility] Urine Color Yellow [address] [place] [address] [phone] Urine Appearance Cloudy Urine Specific [place] > 1.060 High 1.010-1.030 Urine pH 5.0 [...] Present Abnormal Absent Urine Culture And 10/05/2017 [facility] Urine Culture SEE RESULT [address] [place] [address] [phone] Laboratory test 10/05/2017 [facility] Troponin-I 0.00 ng/mL < 0.[address] (TnI) [place] [address] [phone] Lyme Disease Serology Negative Negative 60 CBC Auto Diff 10/05/2017 [facility] White Blood 10.2 10^3/uL N 3.5-10.[address] [place] [address] [phone] Red Blood Count 5.03 10^6/uL N 4.0-5.4 Hemoglobin 12.1 g/dL N 12.0-16.0 Hematocrit 37 % N 35-47 Mean Corpuscular Volume 73 fL Low 80-97 61 Mean Corpuscular Hemoglobin 24 pg Low 27-31 [...] Cells % 0 Comp Metabolic Panel 10/05/2017 [facility] Sodium 137 mmol/L N 133-[address] [place] [address] [phone] Potassium 4.2 mmol/L N 3.5-5.0 Chloride 105 [...] Egfr Non- 118.7 >60 Egfr 152.7 >60 62 Laboratory test 10/05/2017 [facility] Creatine 57 U/L N 10- [address] Kinase(CK) [place] [address] [phone] C Reactive Protein 18.03 mg/L High < 5.00 63 Troponin-I (TnI) 0.00 ng/mL <0.04 CKMB 10/05/2017 [facility] CKMB ng/mL 1.3 ng/mL N 0.6-6.[address] [place] [address] [phone] Laboratory test 10/05/2017 [facility] HCG < 0.60 [address] mIU/[place] [address] [phone] Lactic Acid 1.1 mmol/L N 0.5-2.0 65 CBC Auto Diff 10/05/2017 [facility] White Blood 10.1 10^3/uL N 3.5-10.[address] [place] [address] [phone] Red Blood Count 4.92 10^6/uL N 4.0-5.4 [...] Red Blood Cells % 0 Inr/Protime 10/05/2017 [facility] Inr 0.90 N 0.77-1.[address] [place] [address] [phone] Laboratory test 10/05/2017 [facility] Partial 34.5 seconds N 26.0-36.[address] [place] [address] [phone] Comp Metabolic 10/05/2017 [facility] Sodium 133 mmol/L N 133- [address] [place] [address] [phone] Potassium 3.8 mmol/L N 3.5-5.0 Chloride 102 [...] Egfr Non- 103.9 >60 Egfr 133.6 >60 66 Laboratory test 10/05/2017 [facility] Creatine 64 U/L N 10- [address] Kinase(CK) [place] [address] [phone] Troponin-I (TnI) 0.01 ng/mL <0.04 HCG < 0.60 mIU/mL 67 Laboratory test 02/01/2017 [facility] Surgical Pathology SEE RESULT [address] [place] [address] [phone] Laboratory test 02/01/2017 [facility] Clotest SEE RESULT [address] [place] [address] [phone] Laboratory test 01/19/2017 [facility] TSH (Thyroid Stim 2.41 N 0.34- [address] Horm) mcIU/mL 5.60 [place] [address] [phone] Lipid Profile 01/19/2017 [facility] Triglycerides 143 mg/dL N 71 (Trig/Chol/HDL) [address] [place] [address] [phone] Cholesterol 175 mg/dL N 72 HDL Cholesterol 35.5 mg/dL N 73 LDL Cholesterol 111 mg/dL N 74 Comp Metabolic Panel 01/19/2017 [facility] Sodium 136 mmol/L N 133-[address] [place] [address] [phone] Potassium 4.1 mmol/L N 3.5-5.0 Chloride 104 [...] 104.4 N >60 Egfr 134.3 N >60 75 Urine Culture And 10/19/2016 [facility] Urine Culture SEE RESULT [address] [place] [address] [phone] 1 [id number] 2 SEE RESULT BELOW Name: ANANYA FELICIANO : [address]: Bharti Bonner MD Acct: [id number] Unit: [id number] AGE: 38 Location: [facility] Re08/19/18 SEX: F Status: REG REF SPEC: [id number] RAVEN: 08/19/18-[address]: Bharti Bonner MD REQ: [id number] RECD: 08/19/18 STATUS: COMP _ SOURCE: URINE SPDESC: ORDERED: Urine Culture COMMENTS: [id number] Urine Source: Clean Catch Procedure Result Reported Site Urine Culture Final 08/20/18- 1604 ML No Growth (<1,000 CFU/mL) * ML - Main Lab . END OF REPORT DEPARTMENT OF PATHOLOGY, [address] [place] [address] Berto Paul M.D. Director [facility] # [id number] 3 Please check labs 2 days before follow up 4 Consistent with Previous Results Reported on 10/12/17 5 Because ethnic data is not always readily [...] 15-29 5 Kidney failure <15 (or dialysis) 6 Please check labs 2 days before follow up 7 Please check labs 2 days before follow up 8 [id number] ADDITIONAL INFORMATION This test was developed and its performance characteristics determined by [facility] in a manner consistent with CLIA requirements. This test has not been cleared or approved by the U.S. Food and Drug Administration. Test Performed by: [place] [address] 10 Normal Range 180 to 914 Indeterminate Range 145 to 180 Deficient Range <145 11 No evidence of antibodies to B. burgdorferi detected. False negative results may occur in recently infected patients (<=2 weeks) due to low or undetectable antibody levels to B. burgdorferi. If recent exposure is suspected, a second sample should be collected and tested in 2-4 weeks. Test Performed by: [facility] [place] [address] 12 It is recognized that currently available assays [...] 95% confidence interval of 99.78 to 99.96%. 13 Because ethnic data is not always readily [...] 15-29 5 Kidney failure <15 (or dialysis) 14 ADDITIONAL INFORMATION This test was developed and its performance characteristics determined by [facility] in a manner consistent with CLIA requirements. This test has not been cleared or approved by the U.S. Food and Drug Administration. Test Performed by: [address] [address] 15 ADDITIONAL INFORMATION This test was developed and its performance characteristics determined by [facility] in a manner consistent with CLIA requirements. This test has not been cleared or approved by the U.S. Food and Drug Administration. 16 ADDITIONAL INFORMATION Testing performed by Inductively Coupled Plasma-Mass Spectrometry (ICP-MS). This test was developed and its performance characteristics determined by [facility] in a manner consistent with CLIA requirements. This test has not been cleared or approved by the U.S. Food and Drug Administration. 17 ADDITIONAL INFORMATION This test was developed and its performance characteristics determined by [facility] in a manner consistent with CLIA requirements. This test has not been cleared or approved by the U.S. Food and Drug Administration. 18 ADDITIONAL INFORMATION This test was developed and its performance characteristics determined by [facility] in a manner consistent with CLIA requirements. This test has not been cleared or approved by the U.S. Food and Drug Administration. [address] 20 Test Performed by: [facility] [address] [place] [address] 21 Please check labs 2 days before follow up 22 Please check labs 2 days before follow up 23 Because ethnic data is not always readily [...] 15-29 5 Kidney failure <15 (or dialysis) 24 Please check 2 days before follow up UA ALREADY DONE CANCEL PER PT 25 Low risk: <1.00 Average risk: 1.00-3.00 High risk: >3.00 26 Acute inflammation: >10.00 27 Consistent with Previous Results Reported on 10/05/17 28 Because ethnic data is not always readily [...] 15-29 5 Kidney failure <15 (or dialysis) 29 *Ascorbic acid is present which may interfere with detection of blood. 30 SEE RESULT BELOW Name: PRESTON BENJAMINANANYA : [address]: Rodriguez Schaffer MD Acct: [id number] Unit: [id number] AGE: 37 Location: [facility] Re12/14/17 SEX: F Status: REG REF SPEC: [id number] RAVEN: 12/14/17 [facility] DR: Rodriguez Schaffer MD REQ: [id number] RECD: 12/14/17 STATUS: VENUS SMITH DR: Carmencita Petit MD _ SOURCE: URINE SPDESC: ORDERED: Urine Culture Procedure Result Reported Site Urine Culture Final 12/15/17- 1425 ML Organism 1 STREP GROUP B [place] Count >100,000 (Many) CFU/ML Susceptibility testing of penicillins and other B-lactams approved by FDA for treatment of Streptococcus pyogenes (Group A Strep) and Streptococcus agalactiae (Group B Strep) is not necessary for clinical purposes and need not be done routinely, since as with vancomycin, resistant strains have not been recognized. (CLSI I050-F94;p.66) Positive isolates will be saved for one week. Please call the Microbiology Laboratory if further susceptibility testing is needed. * ML - Main Lab . END OF REPORT DEPARTMENT OF PATHOLOGY, [address] [place] [address] Berto Paul M.D. Director [facility] # [id number] 31 Please check labs this week 32 Negative for cANCA and pANCA patterns by immunofluorescence. ADDITIONAL INFORMATION This test was developed and its performance characteristics determined by [facility] in a manner consistent with CLIA requirements. This test has not been cleared or approved by the U.S. Food and Drug Administration. Test Performed by: [address] [address] 33 Test Performed by: [facility] - [address] [address] 34 Acute inflammation: >10.00 35 Please check labs this week 36 RESULT: No apparent monoclonal protein on serum electrophoresis. Test Performed by: [facility] - [address] [address] 37 REFERENCE VALUE <4.0 (Negative) Test Performed by: [facility] - [address] [address] 38 Negative serology. Celiac disease unlikely. However, approximately 10% of patients with celiac disease are seronegative. Also, patients who are already adhering to a gluten-free diet may be seronegative. If celiac disease is highly clinically suspected, consider HLA-DQ typing. Test Performed by: [facility] - [address] [address] 39 RESULT: 02:01,05:01 REFERENCE VALUE Not Applicable 40 RESULT: 02:01,02:02 DQ Serologic Equivalent: 2,2 REFERENCE VALUE Not Applicable 41 These genes are permissive for celiac disease. The absence of HLA celiac permissive genes would make the presence of celiac disease unlikely. However, these genes can also be present in the normal population. ADDITIONAL INFORMATION Method: Molecular typing of HLA antigens performed using reverse SSOP and/or SSP methods, reported as serological equivalents and low to medium resolution molecular values. Performing Laboratory CLIA# [id number] Test Performed by: [address] [address] 42 REFERENCE VALUE Not Applicable 43 RESULT: HLA-B27 antigen was not detected. ADDITIONAL INFORMATION Method: Flow Cytometry Performing Laboratory CLIA# [id number] Test Performed by: [facility] - [address] [address] 44 REFERENCE VALUE <20.0 (Negative) Test Performed by: [facility] - [address] [address] 45 Normal values may vary with age, season and geographic area. Titers above upper limits may be indicative of infection, however only a two dilution rise in titer is required to be considered significant. ASO titer will usually rise above upper limits within one week of exposure, increase to peak levels at 3-5 weeks and return to baseline level at 6-12 twelve months. 46 ADDITIONAL INFORMATION This test was developed and its performance characteristics determined by [facility] in a manner consistent with CLIA requirements. This test has not been cleared or approved by the U.S. Food and Drug Administration. 47 ADDITIONAL INFORMATION This test was developed and its performance characteristics determined by [facility] in a manner consistent with CLIA requirements. This test has not been cleared or approved by the U.S. Food and Drug Administration. 48 ADDITIONAL INFORMATION This test was developed and its performance characteristics determined by [facility] in a manner consistent with CLIA requirements. This test has not been cleared or approved by the U.S. Food and Drug Administration. Test Performed by: [facility] - [address] [address] 49 Normal Range 180 to 914 Indeterminate Range 145 to 180 Deficient Range <145 50 Please check labs this week 51 Please check labs this week 52 REFERENCE VALUE <=1.0 (Negative) Test Performed by: [facility] [address] [place] [address] 53 REFERENCE VALUE <30.0 (Negative) Test Performed by: [facility] [address] [place] [address] 54 Test Performed by: [address] [address] 55 Acute inflammation: >10.00 56 Serologic response to B. burgdorferi infection is not detected, but cannot rule out early infection during which low or undetectable antibody levels to B. burgdorferi may be present. If clinically indicated, a new serum specimen should be submitted in 7-14 days. Test Performed by: [facility] [address] [place] [address] 57 REFERENCE VALUE <1.0 (Negative) 58 REFERENCE VALUE <1.0 (Negative) Test Performed by: [facility] [address] [place] [address] 59 SEE RESULT BELOW Name: ANANYA FELICIANO : [address]: Ulises Bates MD Acct: [id number] Unit: [id number] AGE: 37 Location: ED Re10/05/17 SEX: F Status: DEP ER SPEC: [id number] RAVEN: 10/05/[address]: Ulises Bates MD REQ: [id number] RECD: 10/05/17 STATUS: VENUS SMITH DR: Carmencita Petit MD _ SOURCE: URINE SPDESC: ORDERED: Urine Culture Procedure Result Reported Site Urine Culture Final 10/07/17- 09 ML No growth of clinically significant organisms * ML - MAIN LAB ([facility]) . END OF REPORT * ML=Testing performed at Main Lab DEPARTMENT OF PATHOLOGY, [address] [place] [address], [place] [address] Berto Paul M.D. Director [facility] # [id number] 60 Serologic response to B. burgdorferi infection is not detected, but cannot rule out early infection during which low or undetectable antibody levels to B. burgdorferi may be present. If clinically indicated, a new serum specimen should be submitted in 7-14 days. Test Performed by: [facility] [address] [place] [address] 61 Consistent with Previous Results Reported on 10/05/17. 62 Because ethnic data is not always readily [...] 15-29 5 Kidney failure <15 (or dialysis) 63 Acute inflammation: >10.00 64 <5.0 Negative 5.0 - 25.0 Indeterminate (Repeat testing recommended after 72 hours) >25.0 Positive Perimenopausal women can display HCG levels of up to 20 mIU/mL 65 [facility] Severe Sepsis and Septic Shock Management Bundle Measure requires all lactic acids initially measuring >2.0 mmol/L be repeated. 66 Because ethnic data is not always [...] 5 Kidney failure <15 (or dialysis) 67 <5.0 Negative 5.0 - 25.0 Indeterminate (Repeat testing recommended after 72 hours) >25.0 Positive Perimenopausal women can display HCG levels of up to 20 mIU/mL 68 SEE RESULT BELOW Name: ANANYA FELICIANO : [address]: Aurelio Paz MD Acct: [id number] Unit: [id number] AGE: 36 Location: ENDO Re02/01/17 SEX: F Status: DEP REF SPEC: [id number] RAVEN: 02/01/17- SUBM DR: Aurelio Paz MD REQ: [id number] RECD: 02/01/175005 STATUS: CHIDI SMITH DR: Elena Willis SPRING TIER _ ORDERED: LEVEL 4 FINAL DIAGNOSIS Duodenum, [...] performed at Main Lab DEPARTMENT OF PATHOLOGY, [address] [place] [address] Berto Paul M.D. Director [facility] # [id number] 69 SEE RESULT BELOW Name: ANANYA FELICIANO : [address]: Aurelio Paz MD Acct: [id number] Unit: [id number] AGE: 36 Location: ENDO Re02/01/17 SEX: F Status: REG REF SPEC: [id number] RAVEN: 02/01/17-1251 [facility] DR: Aurelio Paz MD REQ: [id number] RECD: 02/01/17 STATUS: VENUS SMITH DR: Elena Willis SPRING TIER _ SOURCE: GAS ANTRUM SPDESC: ORDERED: Clotest Procedure Result Reported Site Clotest Final 02/02/17- 0757 ML Clotest Negative * ML - MAIN LAB ([facility]) . END OF REPORT * ML=Testing performed at Main Lab DEPARTMENT OF PATHOLOGY, [address] [place] [address] Berto Paul M.D. Director [facility] # [id number] 70 FASTING 10 HOUR 71 Desirable <150 Borderline high 150-199 High 200-499 Very High >500 72 Desirable <200 Borderline high 200-239 High >239 73 Low <40 Desirable: 40-60 High: >60 74 Desirable: <100 mg/dL Near Optimal: 100-129 mg/dL Borderline High: 130-159 mg/dL High: 160-189 mg/dL Very High: >189 mg/dL 75 Because ethnic data is not always readily [...] 15-29 5 Kidney failure <15 (or dialysis) 76 SEE RESULT BELOW Name: ANANYA FELICIANO : [address]: Carmencita Petit MD Acct: [id number] Unit: [id number] AGE: 36 Location: [facility] Re10/19/16 SEX: F Status: REG REF SPEC: [id number] RAVEN: 10/19/16-1358 [facility] DR: Carmencita Petit MD REQ: [id number] RECD: 10/19/16 STATUS: COMP _ SOURCE: URINE SPDESC: ORDERED: Urine Culture COMMENTS: [id number] Urine Source: Random Procedure Result Reported Site Urine Culture Final 10/21/16833 ML No growth of clinically significant organisms * ML - MAIN LAB ([facility]) . END OF REPORT * ML=Testing performed at Main Lab DEPARTMENT OF PATHOLOGY, [address] [place] [address] Berto Paul M.D. Director [facility] # [id number] Procedures Date Code Description Status 05/04/2018 05565 Nerve Conduction -08 Studies Completed 05/04/2018 52536 Needle Electromyography Complete, Five Or More Muscles Completed Studied 05/04/2018 89337 Needle Electromyography Each Extremity W/Related Completed Paraspinal Areas 01/27/2018 15987 Diffusing Capacity Completed 01/27/2018 18255 Plethysmography Determination Lung Volumes & Per Airway Completed Resist 01/27/2018 62139 Pulmonary Function><Bronchodil Completed 01/19/2018 23238 Sleep Study Unattended,HRT Rate,Oxygen Sat,Resp Completed Effort/Airflow 10/19/2017 16664 Stress Test Completed 10/23/2016 91619 Anoscopy Completed 10/13/2016 51919710 Colonoscopy Completed Encounters Type Date Location Provider Dx Diagnosis Office Visit 05/30/2018 Rheumatology [facility]once6.4 Inflammatory 4:40p [facility] Wilson polyarthropathy D64.9 Anemia, unspecified R20.2 Paresthesia of skin M25.552 Pain in left hip Office Visit 04/20/2018 Rheumatology Rodriguez Figueroa6.4 Inflammatory 11:00a [facility] Schaffer M.D. polyarthropathy R70.0 Elevated erythrocyte sedimentation rate Z79.899 Other oil heaterman (current) drug therapy D64.9 Anemia, unspecified M25.552 Pain in left hip Office Visit 04/05/2018 9:10a [facility] Internal Carmencita Petit, Z00.00 [facility] for Medicine - M.D. general adult [place] medical exam w/o abnormal findings R20.2 Paresthesia of skin R73.01 Impaired fasting glucose Office Visit 02/12/2018 9:15a Pulmonology And Marie G47.33 Obstructive sleep Sleep Services Of MD Bill apnea (adult) Stacey (pediatric) J45.909 Unspecified asthma, uncomplicated E66.01 Morbid (severe) obesity due to excess calories Office Visit 01/26/2018 11:50a [facility] Internal Carmencita Petit, R73.01 Impaired Medicine - M.DZachary fasting glucose [place] R51 Headache Office Visit 01/18/2018 Rheumatology Rodriguez M06.4 Inflammatory 9:40a [facility] Schaffer M.D. polyarthropathy R70.0 Elevated erythrocyte sedimentation rate Z79.899 Other mcc (current) drug therapy M54.5 Low back pain D64.9 Anemia, unspecified Office Visit 01/12/2018 8:30a Pulmonology And Sleep Marie Bill, R06.83 Snoring [facility] J45.20 Mild intermittent asthma, uncomplicated E66.01 Morbid (severe) obesity due to excess calories Z68.42 Body mass index (BMI) 45.0-49.9, adult Office Visit 12/14/2017 Rheumatology Rodriguez M06.4 Inflammatory 1:40p [facility] Schaffer M.D. polyarthropathy R70.0 Elevated erythrocyte sedimentation rate M54.5 Low back pain Z79.899 Other mcc (current) drug therapy R31.9 Hematuria, unspecified Office Visit 11/25/2017 9:00a Rheumatology Services Rodriguez Schaffer M79.1 Myalgia Of [facility] Wilson R70.0 Elevated erythrocyte sedimentation rate M54.5 Low back pain M06.4 Inflammatory polyarthropathy R20.8 Other disturbances of skin sensation G56.03 Carpal tunnel syndrome, bilateral upper limbs R06.83 Snoring Office Visit 10/13/2017 10:10a [employer] Internal Carmencita M25.50 Pain in Medicine Leticia Petit M.D. unspecified joint [place] Office Visit 10/06/2017 8:30a [facility] Carmencita R07.89 Other chest pain Felisa Petit M.D. [place] M79.1 Myalgia Office Visit 01/15/2017 2:20p [facility] Elena Willis, F32.9 Major depressive Medicine - N.P. disorder, single [place] episode, unspecified E78.00 Pure hypercholesterolemia, unspecified Office Visit 10/23/2016 8:45a Surgical Christian Barrios K64.8 Other hemorrhoids [facility] M.D. D50.0 Iron deficiency anemia secondary to blood loss (chronic) R10.30 Lower abdominal pain, unspecified Office Visit 10/19/2016 11:50a [facility] Internal Carmencita K64.8 Other hemorrhoids Medicine - Katie Petit [place] D50.0 Iron deficiency anemia secondary to blood loss (chronic) R10.30 Lower abdominal pain, unspecified B34.9 Viral infection, unspecified Office Visit 10/14/2016 [facility] K92.2 Gastrointestinal 2:42p [facility] M.[facility]. hemorrhage, Hospitalists unspecified F32.9 Major depressive disorder, single episode, unspecified Office Visit 10/12/2016 [facility] K92.2 Gastrointestinal 2:41p [facility] D.O. hemorrhage, [...] Ankle Unspec Site Plan of Treatment Future Appointment(s):08/30/2018 2:40 pm - Rodriguez Schaffer M.D. at [facility]08/23/2018 - Carmencita Petit M.D.R30.0 WsfroqcL09.10 Upper abdominal pain, unspecifiedComments:i would avoid eating today, and see how it improves the pain, please do the blood work cvcrxH27.6 Irregular menstruation, unspecifiedNew Labs: (HCG) Urine, Ordered: 08/23/18R73.01 Impaired fasting glucose
--- OUTSIDE RECORDS SUMMARY | 2018-09-20 13:25 | XMS REPORT | Continuity of Care Document ---
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 Tobacco Use Start: Unknown Former Cigarette Smoker Smoked 3/4 ppd for End: Unknown 11 years Smoking Status Reviewed: 08/19/18 Former Cigarette Smoker Smoked 3/4 ppd for [...] Form Strength Qnty SIG Indications Ordering Provider Ciprofloxacin 08/19 Active Tablets 500mg 6tabs 1 by mouth N39.0 Bharti twice a day Bonner, for 3 days MD Cisneros 08/19 Active Cream 2% 40gm one N76.0 applicatorful Bonner, per vagina at [facility] [place] x 3 days Turmeric 04/28 Active Capsules 5-1000mg 90cap Take one Rodriguez Curcumin s capsule/tablet Sarbjit, daily by mouth M.DZachary Onetouch Ultra 01/26 Active Strips 100un test twice a R73.01 Carmencita Blue its day and as Marisabel, needed M.DZachary Ventolin HFA 01/12 Active Aerosol 108(90Bas 8gm 1 unit puff J45.20 Marie e) every 6 hours Bill, mcg/Act as needed Wrist Splint 11/25 Active Misc 2unit use nightly to G56.03 s help with zeke Schaffer in M.D. the right and left hand Sertraline HCL 01/15 Active Tablets 100mg 90tab 1 by mouth F32.9 s every day Katie Petit Plaquenil 07/04 Hx Tablets 200mg 60tab Take 2 by s mouth daily Sarbjit, - ongoing M.D. 08/19 Parker-3 & 04/28 Hx Capsules 1200mg 90cap take one Parker-6 Fish s capsule/tablet Sarbjit, Oil - daily by mouth M.D. 05/30 Methotrexate 04/20 Hx Tablets 2.5mg 30tab take 4 M06.4 s capsules/table Sarbjit, - ts by mouth M.D. 05/30 once weekly (not taking) Folic Acid 04/20 Hx Tablets 1mg 90tab take one M06.4 s capsule/tablet Sabrjit, - daily by mouth M.D. 05/30 (not taking) Vitamin B12 04/05 Hx Tablets 1000mcg 30tab 1 by mouth ER s every day Leticia Petit.DZachary 05/30 Metformin HCL 01/26 Hx Tablets 500mg 90tab 1 by mouth R73.01 s every day (not Petit, - taking) M.D. 05/30 Slow Fe 01/18 Hx Tablets 142(45Fe) 30tab 1 by mouth ER mg s every day Sarbjit, - M.D. 05/30 Amoxicillin 12/27 Hx Capsules 500mg 14cap one tab twice s a day Jae, - CLIENT OPERATIONS MANAGER 01/11 Plaquenil 12/14 Hx Tablets 200mg 60tab Take 2 by M06.4 s mouth daily Sarbjit, - ongoing M.D. 04/20 B12 Fast 12/04 Hx Tablets 5000mcg 90tab sublingual Dispers s daily Sarbjit, - M.D. 04/04 Sertraline HCL 01/15 Hx Tablets 50mg 30tab 1 by mouth F32.9 s every day for Varn, - N.P. 01/15 Iron 0000 Hx Tablets 325(65Fe) 1 by mouth Unknown /0000 mg every day prn - 01/11 Zoloft 0000 Hx Tablets 50mg 1 by mouth Unknown /0000 every day - 01/15 Metamucil 0000 Hx Powder 63% Unknown [facility] /0000 Fiber - 01/15 Ciprofloxacin 00/00 Hx Tablets 500mg 1 tab by mouth Unknown HCL /0000 twice a day - x7days 10/13 Ibuprofen 00/00 Hx Tablets 200mg as needed Unknown /0000 - 05/30 Immunizations CPT Code Status Date Vaccine Lot # [id number] Refused 10/06/2017 Influenza Virus Vaccine, Quadrivalent, Split, Preservative Free Vital Signs Date Vital Result Comment 08/19/2018 10:56am Height 63 inches 5'3" Weight [...] Test Result H/L Range Note Ua Routine 08/19/2018 Senior Patrol Agent In House Ua Specific [place] 1.030 Ua PH 5 Ua Color yellow Ua Appera clear Ua WBC trace Ua Protein neg Ua Glucose norm Ua Ketones neg Ua Bilirubin neg Ua Urobilinogen norm Ua Nitrite neg Ua Occult Blood neg Urine Culture And 08/19/2018 [facility] Urine SEE RESULT 1 , [address] [place] [address] [phone] CBC Auto Diff 05/26/2018 [facility] White Blood 8.6 10^3/uL N 3.5-[address] Count 0.8 [place] [address] [phone] Red Blood Count 4.74 10^6/uL N 4.00-5.40 [...] Cells % 0 Comp Metabolic Panel 05/26/2018 [facility] Sodium 139 mmol/L N 135-[address] [place] [address] [phone] Potassium 4.1 mmol/L N 3.5-5.0 Chloride 105 [...] Egfr 138.0 >60 5 Laboratory test 05/26/2018 [facility] Erythrocyte Sed 29 mm/Hr High 0-14 [address] [place] [address] [phone] C Reactive Protein 10.86 mg/L High <8.01 7 Cortisol Free 04/14/2018 [facility] Urine Free 13 mcg/24h 3.5 -45 8 24HR Urine [address] [place] [address] [phone] Urine Collection Duration 24 h Urine Total Volume 1450 mL 9 Laboratory test 04/08/2018 [facility] Vitamin B12 884 pg/mL N 180-914 [address] [place] [address] [phone] Lyme Disease Serology Negative Negative 11 HIV 1/2 AB 04/08/2018 [facility] HIV 1 2 Nonreactive Nonreactive 12 Evaluation [address] [employer] [place] [address] [phone] Basic 04/08/2018 [facility] Sodium 139 mmol/L N 135-[address] [place] [address] [phone] Potassium 4.4 mmol/L N 3.5-5.0 Chloride 103 mmol/L N 101-111 Co2 Carbon Dioxide 27 mmol/L N 22-32 Anion Gap 9 mmol/L N 2-11 Glucose 111 mg/dL High 70-100 Blood Urea Nitrogen 8 mg/dL N 6-24 Creatinine 0.69 mg/dL N 0.51-0.95 BUN/Creatinine Ratio 11.6 N 8-20 Calcium 9.0 mg/dL N 8.6-10.3 Egfr Non- 95.2 >60 Egfr 115.2 >60 13 Laboratory test 04/08/2018 [facility] Methylmalonic 0.10 <= 0.40 14 finding [address] [facility] Acid Mma nmol/[place] [address] [phone] Heavy Metal 04/08/2018 [facility] Arsenic <1 ng/mL 0-12 [address] [place] [address] [phone] Lead <1.0 g/dL 0.0-4.9 16 Mercury <1 ng/mL 0-9 17 Cadmium <0.2 ng/mL 0.0-4.[address] [place] [address] [address] [address] [facility] Guardian First Name ANANYA Bhat Guardian Last Name PRESTON GALLEGOS Venous/Capillary Heavy Metals Venous Patient Race WHITE Submitting Laboratory Phone [phone] Laboratory test 04/08/2018 [facility] Erythrocyte Sed 39 mm/Hr High 0-14 [address] [place] [address] [phone] C Reactive Protein 15.29 mg/L High <8.01 22 CBC Auto Diff 04/08/2018 [facility] White Blood 7.6 10^3/uL N 3.5-10.[address] [place] [address] [phone] Red Blood Count 4.79 10^6/uL N 4.00-5.40 [...] Cells % 0 Comp Metabolic Panel 04/08/2018 [facility] Sodium 138 mmol/L N 135-[address] [place] [address] [phone] Potassium 4.5 mmol/L N 3.5-5.0 Chloride 102 [...] Egfr 117.2 >60 23 Laboratory test 04/05/2018 Senior Patrol Agent In House Hemoglobin A1c 5.7 5-7 finding Laboratory test 01/13/2018 [facility] Erythrocyte Sed 38 mm/Hr High 0-14 [address] [place] [address] [phone] CRP High Sensitivity 20.86 mg/L 25 C Reactive Protein 19.71 mg/L High < 5.00 26 CBC Auto Diff 01/13/2018 [facility] White Blood 7.8 10^3/uL N 3.5-10.[address] [place] [address] [phone] Red Blood Count 4.55 10^6/uL N 4.0-5.4 [...] Cells % 0 Comp Metabolic Panel 01/13/2018 [facility] Sodium 138 mmol/L Low 139-[address] [place] [address] [phone] Potassium 4.4 mmol/L N 3.5-5.0 Chloride 104 [...] Egfr 133.6 >60 28 Urinalysis Profile 12/14/2017 [facility] Urine Color Yellow [address] [place] [address] [phone] Urine Appearance Cloudy Urine Specific [place] 1.020 N 1.010-1.030 Urine pH 6.0 N [...] Present Abnormal Absent Urine Culture And 12/14/2017 [facility] Urine SEE RESULT [address] [place] [address] [phone] Anca AB Ser If 11/25/2017 [facility] C-Anca Negative Negative [address] [place] [address] [phone] P-Anca Negative Negative 32 Laboratory test 11/25/2017 [facility] Angiotensin 19 U/L 8 - 53 [address] Converting Enzyme [place], [place] [phone] C Reactive Protein 12.87 mg/L High < 5.00 34 Erythrocyte Sed Rate 44 mm/Hr High 0-14 35 Protein 11/25/2017 [facility] Total 7.2 g/dL 6.3 - Electrophoresis [address] Protein(Pep) 7.9 [place] [address] [phone] Albumin 3.3 g/dL Abnormal 3.4-4.7 Alpha-1 Globulin 0.3 g/dL 0.1-0.3 Alpha-2 Globulin 1.0 g/dL 0.6-1.0 Beta Globulin 1.2 g/dL 0.7-1.2 Gamma Globulin 1.5 g/dL 0.6-1.6 Albumin/Globulin Ratio 0.84 Impression See Comment 36 Celiac Panel 11/25/2017 [facility] Immunoglobulin A 266 mg/dL 61 - [address] [place] [address] [phone] Tissue Transglutaminase IgA Ab <1.2 U/mL 37 Celiac Interpretation See Comment 38 Celiac Hla 11/25/2017 [facility] Hla-Dqa1 SEE BELOW [address] [place] [address] [phone] Hla-DQB1 SEE BELOW 40 Celiac Gene Pairs Present? Yes Celiac Gene Interpretation See Comment 41 Hla B27 11/25/2017 [facility] Hla B27 Negative [address] [place] [address] [phone] Hla B27 Interp See Comment 43 Laboratory test 11/25/2017 [facility] Cyclic Citrullinated < 15.6 U [address] [place] [address] [phone] Aso (Antistreptolysin O) Titer 200 IU/mL IU/mL Abnormal <200 Iu/mL 45 Tick-Borne Panel 11/25/2017 [facility] Babesia Negative Negative PCR Blood [address] [place] [address] [phone] Babesia ducani Negative Negative Babesia divergens/Mo-1 Negative Negative 46 Anaplasma phagocytophilum Negative Negative Ehrlichia chaffeensis Negative Negative Ehrlichia ewingii/canis Negative Negative Ehrlichia muris-like Negative Negative 47 B. miyamotoi PCR, B Negative Negative 48 Vitamin B12 And 11/25/2017 [facility] Vitamin B12 204 pg/mL N 180-914 [address] [place] [address] [phone] Folic Acid (Folate) 10.13 ng/mL >3.99 50 Laboratory test 11/25/2017 [facility] Thyroperoxidase AB 0.44 IU /mL N <[address] [place] [address] [phone] Laboratory test 10/13/2017 [facility] Anti Nuclear 0.5 U [address] [place] [address] [phone] Erythrocyte Sed Rate 41 mm/Hr High 0-14 Anti Double Stranded Dna AB <12.3 IU/mL 53 Rheumatoid Factor <15 IU/mL <15 54 C Reactive Protein 17.85 mg/L High < 5.00 55 Creatine Kinase(CK) 56 U/L N 10-223 Lyme Disease Serology Negative Negative 56 Ssa/SSB Abs Igg 10/13/2017 [facility] SS-A/Ro Antibody <0.[address] [place] [address] [phone] SS-B/La Antibody <0.2 U 58 Urinalysis Profile 10/05/2017 [facility] Urine Color Yellow [address] [place] [address] [phone] Urine Appearance Cloudy Urine Specific [place] > 1.060 High 1.010-1.030 Urine pH 5.0 [...] Present Abnormal Absent Urine Culture And 10/05/2017 [facility] Urine Culture SEE RESULT [address] [place] [address] [phone] Laboratory test 10/05/2017 [facility] Troponin-I 0.00 ng/mL < 0.04 finding 101 (TnI) [place] [address] [phone] Lyme Disease Serology Negative Negative 60 CBC Auto Diff 10/05/2017 [facility] White Blood 10.2 10^3/uL N 3.5-10.[address] [place] [address] [phone] Red Blood Count 5.03 10^6/uL N 4.0-5.4 [...] Cells % 0 Comp Metabolic Panel 10/05/2017 [facility] Sodium 137 mmol/L N 133-[address] [place] [address] [phone] Potassium 4.2 mmol/L N 3.5-5.0 Chloride 105 [...] Egfr 152.7 >60 62 Laboratory test 10/05/2017 [facility] Creatine 57 U/L N 10- [address] Kinase(CK) [place] [address] [phone] C Reactive Protein 18.03 mg/L High < 5.00 63 Troponin-I (TnI) 0.00 ng/mL <0.04 CKMB 10/05/2017 [facility] CKMB ng/mL 1.3 ng/mL N 0.6-6.[address] [place] [address] [phone] Laboratory test 10/05/2017 [facility] HCG < 0.60 [address] mIU/[place] [address] [phone] Lactic Acid 1.1 mmol/L N 0.5-2.0 65 CBC Auto Diff 10/05/2017 [facility] White Blood 10.1 10^3/uL N 3.5-10.[address] [place] [address] [phone] Red Blood Count 4.92 10^6/uL N 4.0-5.4 [...] Red Blood Cells % 0 Inr/Protime 10/05/2017 [facility] Inr 0.90 N 0.77-1.[address] [place] [address] [phone] Laboratory test 10/05/2017 [facility] Partial 34.5 seconds N 26.0-36.[address] [place] [address] [phone] Comp Metabolic 10/05/2017 [facility] Sodium 133 mmol/L N 133- [address] [place] [address] [phone] Potassium 3.8 mmol/L N 3.5-5.0 Chloride 102 [...] Egfr 133.6 >60 66 Laboratory test 10/05/2017 [facility] Creatine 64 U/L N 10- [address] Kinase(CK) [place] [address] [phone] Troponin-I (TnI) 0.01 ng/mL <0.04 HCG < 0.60 mIU/mL 67 Laboratory test 02/01/2017 [facility] Surgical Pathology SEE RESULT [address] [place] [address] [phone] Laboratory test 02/01/2017 [facility] Clotest SEE RESULT [address] [place] [address] [phone] Laboratory test 01/19/2017 [facility] TSH (Thyroid Stim 2.41 N 0.34- [address] Horm) mcIU/mL 5.60 [place] [address] [phone] Lipid Profile 01/19/2017 [facility] Triglycerides 143 mg/dL N 71 (Trig/Chol/HDL) [address] [place] [address] [phone] Cholesterol 175 mg/dL N 72 HDL Cholesterol 35.5 mg/dL N 73 LDL Cholesterol 111 mg/dL N 74 Comp Metabolic Panel 01/19/2017 [facility] Sodium 136 mmol/L N 133-[address] [place] [address] [phone] Potassium 4.1 mmol/L N 3.5-5.0 Chloride 104 [...] N >60 75 Urine Culture And 10/19/2016 [facility] Urine Culture SEE RESULT [address] [place] [address] [phone] 1 [id number] 2 SEE RESULT BELOW Name: ANANYA FELICIANO : [address]: Bharti Bonner MD Acct: [id number] Unit: [id number] AGE: 38 Location: [facility] Re08/19/18 SEX: F Status: REG REF SPEC: [id number] RAVEN: 08/19/18-[address]: Bharti Bonner MD REQ: [id number] RECD: 08/19/18 STATUS: COMP _ SOURCE: URINE SPDESC: ORDERED: Urine Culture COMMENTS: [id number] Urine Source: Clean Catch Procedure Result Reported Site Urine Culture Final 08/20/18- 1604 ML No Growth (<1,000 CFU/mL) * ML - Main Lab . END OF REPORT DEPARTMENT OF PATHOLOGY, [address] [place] [address] Berto Paul M.D. Director [facility] # [id number] Please check labs 2 days before [...] labs 2 days before follow up 8 [id number] ADDITIONAL INFORMATION This test was developed and its performance characteristics determined by [facility] in a manner consistent with CLIA requirements. This test has not been cleared or approved by the U.S. Food and Drug Administration. Test Performed by: [facility] - [facility] [address] [place] [address] 10 Normal Range 180 to 914 Indeterminate Range 145 to 180 Deficient Range <145 11 No evidence of antibodies to B. burgdorferi detected. False negative results may occur in recently infected patients (<=2 weeks) due to low or undetectable antibody levels to B. burgdorferi. If recent exposure is suspected, a second sample should be collected and tested in 2-4 weeks. Test Performed by: [facility] - [address] [address] 12 It is recognized that currently available [...] developed and its performance characteristics determined by [facility] in a manner consistent with CLIA requirements. This test has not been cleared or approved by the U.S. Food and Drug Administration. Test Performed by: [facility] - [address] [address] 15 ADDITIONAL INFORMATION This test was developed and its performance characteristics determined by [facility] in a manner consistent with CLIA requirements. This test has not been cleared or approved by the U.S. Food and Drug Administration. 16 ADDITIONAL INFORMATION Testing performed by Inductively Coupled Plasma-Mass Spectrometry (ICP-MS). This test was developed and its performance characteristics determined by [facility] in a manner consistent with CLIA requirements. This test has not been cleared or approved by the U.S. Food and Drug Administration. 17 ADDITIONAL INFORMATION This test was developed and its performance characteristics determined by [facility] in a manner consistent with CLIA requirements. This test has not been cleared or approved by the U.S. Food and Drug Administration. 18 ADDITIONAL INFORMATION This test was developed and its performance characteristics determined by [facility] in a manner consistent with CLIA requirements. This test has not been cleared or approved by the U.S. Food and Drug Administration. [address] 20 Test Performed by: [facility] - [facility] [address] [place] [address] 21 Please check labs 2 days before [...] of blood. 30 SEE RESULT BELOW Name: ANANYA FELICIANO : [address]: Rodriguez Schaffer MD Acct: [id number] Unit: [id number] AGE: 37 [facility] SEX: F Status: REG REF SPEC: [id number] RAVEN: 12/14/[address] [facility] [address]: Rodriguez Schaffer MD REQ: [id number] RECD: 12/14/17 STATUS: VENUS SMITH DR: Carmencita Petit MD _ SOURCE: URINE SPDESC: ORDERED: Urine Culture Procedure Result Reported Site Urine Culture Final 12/15/17- 1425 ML Organism 1 STREP GROUP B [place] Count >100,000 (Many) CFU/ML Susceptibility testing of penicillins and other B-lactams approved by FDA for treatment of Streptococcus pyogenes (Group A Strep) and Streptococcus agalactiae (Group B Strep) is not necessary for clinical purposes and need not be done routinely, since as with vancomycin, resistant strains have not been recognized. (CLSI F330-H71;p.66) Positive isolates will be saved for one week. Please call the Microbiology Laboratory if further susceptibility testing is needed. * - [facility] Lab . END OF REPORT DEPARTMENT OF PATHOLOGY, [address] [place] [address] Berto Paul M.D. Director [facility] # [id number] 31 Please check labs this week 32 Negative for cANCA and pANCA patterns by immunofluorescence. ADDITIONAL INFORMATION This test was developed and its performance characteristics determined by [facility] in a manner consistent with CLIA requirements. This test has not been cleared or approved by the U.S. Food and Drug Administration. Test Performed by: [place] [address] 33 Test Performed by: [place] [address] 34 Acute inflammation: >10.00 35 Please check labs this week 36 RESULT: No apparent monoclonal protein on serum electrophoresis. Test Performed by: [place] [address] 37 REFERENCE VALUE <4.0 (Negative) Test Performed by: [place] [address] 38 Negative serology. Celiac disease unlikely. However, approximately 10% of patients with celiac disease are seronegative. Also, patients who are already adhering to a gluten-free diet may be seronegative. If celiac disease is highly clinically suspected, consider HLA-DQ typing. Test Performed by: [address] [address] 39 RESULT: 02:01,05:01 REFERENCE VALUE Not Applicable [...] medium resolution molecular values. Performing Laboratory CLIA# [id number] Test Performed by: [address] [address] 42 REFERENCE VALUE Not Applicable 43 RESULT: HLA-B27 antigen was not detected. ADDITIONAL INFORMATION Method: Flow Cytometry Performing Laboratory CLIA# [id number] Test Performed by: [address] [address] 44 REFERENCE VALUE <20.0 (Negative) Test Performed by: [address] [address] 45 Normal values may vary with age, [...] developed and its performance characteristics determined by [facility] in a manner consistent with CLIA requirements. This test has not been cleared or approved by the U.S. Food and Drug Administration. 47 ADDITIONAL INFORMATION This test was developed and its performance characteristics determined by [facility] in a manner consistent with CLIA requirements. This test has not been cleared or approved by the U.S. Food and Drug Administration. 48 ADDITIONAL INFORMATION This test was developed and its performance characteristics determined by [facility] in a manner consistent with CLIA requirements. This test has not been cleared or approved by the U.S. Food and Drug Administration. Test Performed by: [address] [address] 49 Normal Range 180 to 914 Indeterminate Range 145 to 180 Deficient Range <145 50 Please check labs this week 51 Please check labs this week 52 REFERENCE VALUE <=1.0 (Negative) Test Performed by: [address] [address] 53 REFERENCE VALUE <30.0 (Negative) Test Performed by: [address], [place] [address] 54 Test Performed by: [facility] [address] [place] [address] 55 Acute inflammation: >10.00 56 Serologic response to B. burgdorferi infection is not detected, but cannot rule out early infection during which low or undetectable antibody levels to B. burgdorferi may be present. If clinically indicated, a new serum specimen should be submitted in 7-14 days. Test Performed by: [facility] - [facility] [address] [place] [address] 57 REFERENCE VALUE <1.0 (Negative) 58 REFERENCE VALUE <1.0 (Negative) Test Performed by: [facility] - [facility] [address] [place] [address] 59 SEE RESULT BELOW Name: ANANYA FELICIANO : [address]: Ulises Bates MD Acct: [id number] Unit: [id number] AGE: 37 Location: ED Re10/05/17 SEX: F Status: DEP ER SPEC: [id number] RAVEN: 10/05/[address] [facility] [address]: Ulises Bates MD REQ: [id number] RECD: 10/05/17 STATUS: VENUS SMITH DR: Carmencita Petit MD _ SOURCE: URINE SPDESC: ORDERED: Urine Culture Procedure Result Reported Site Urine Culture Final 10/07/17- 928 ML No growth of clinically significant organisms * ML - MAIN LAB ([facility]) . END OF REPORT * ML=Testing performed at Main Lab DEPARTMENT OF PATHOLOGY, [address] [place] [address] Berto Paul M.D. Director [facility] # [id number] 60 Serologic response to B. burgdorferi infection is not detected, but cannot rule out early infection during which low or undetectable antibody levels to B. burgdorferi may be present. If clinically indicated, a new serum specimen should be submitted in 7-14 days. Test Performed by: [place] [address] [place] [address] 61 Consistent with Previous Results Reported on [...] levels of up to 20 mIU/mL 65 [facility] Severe Sepsis and Septic Shock Management [...] [address]: Aurelio Paz MD Acct: [id number] Unit: [id number] AGE: 36 Location: ENDO Re02/01/17 SEX: F Status: DEP REF SPEC: [id number] RAVEN: 02/01/17- SUBM DR: Aurelio aPz MD REQ: [id number] RECD: 02/01/17 STATUS: CHIDI SMITH DR: Elena Willis CLIENT OPERATIONS MANAGER _ ORDERED: LEVEL 4 FINAL DIAGNOSIS [place], [...] performed at Main Lab DEPARTMENT OF PATHOLOGY, [address] [place] [address] Berto Paul M.D. Director [facility] # [id number] 69 SEE RESULT BELOW Name: ANANYA FELICIANO : [address]: Aurelio Paz MD Acct: [id number] Unit: [id number] AGE: 36 Location: ENDO Re02/01/17 SEX: F Status: REG REF SPEC: [id number] RAVEN: 02/01/17-[address] [facility] [address]: Aurelio Paz MD REQ: [id number] RECD: 02/01/17-1311 STATUS: VENUS SMITH DR: Elena Willis CLIENT OPERATIONS MANAGER _ SOURCE: GAS ANTRUM SPDESC: ORDERED: Clotest Procedure Result Reported Site Clotest Final 02/02/17- 0757 ML Clotest Negative * ML - MAIN LAB ([facility]) . END OF REPORT * ML=Testing performed at Main Lab DEPARTMENT OF PATHOLOGY, [address] [place] [address] Berto Paul M.D. Director [facility] # [id number] 70 FASTING 10 HOUR 71 Desirable <150 [...] [address]: Carmencita Petit MD Acct: [id number] Unit: [id number] AGE: 36 Location: [facility] Re10/19/16 SEX: F Status: REG REF SPEC: [id number] [place]AV[place]: 10/19/16-[address] [facility] [address]: Carmencita Petit MD REQ: [id number] RECD: 10/19/16 STATUS: COMP _ SOURCE: URINE SPDESC: ORDERED: Urine Culture COMMENTS: [id number] Urine Source: Random Procedure Result Reported Site Urine Culture Final 10/21/16- 833 ML No growth of clinically significant organisms * ML - MAIN LAB (PSC1) . END OF REPORT * ML=Testing performed at Main Lab DEPARTMENT OF PATHOLOGY, [address] [place] [address] Berto Paul M.D. Director [facility] # [id number] Procedures Date Code Description Status 05/04/2018 04255 Nerve Conduction 07-08 Studies Completed 05/04/2018 07722 Needle Electromyography Complete, Five Or More Muscles Completed Studied 05/04/2018 30667 Needle Electromyography Each Extremity W/Related Completed Paraspinal Areas 01/27/2018 92574 Diffusing Capacity Completed 01/27/2018 42607 Plethysmography Determination Lung Volumes & Per Airway Completed Resist 01/27/2018 64206 Pulmonary Function><Bronchodil Completed 01/19/2018 44263 Sleep Study Unattended,HRT Rate,Oxygen Sat,Resp Completed Effort/Airflow 10/19/2017 65839 Stress Test Completed 10/23/2016 87280 Anoscopy Completed 10/13/2016 10617701 Colonoscopy Completed Encounters Type Date Location Provider Dx Diagnosis Office Visit 05/30/2018 Rheumatology Rodriguez Schaffer, 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 polyarthropathy R70.0 Elevated erythrocyte sedimentation rate Z79.899 Other fulfillment representative (current) drug therapy D64.9 Anemia, unspecified M25.552 Pain in left hip Office Visit 04/05/2018 9:10a [facility] Internal Carmencita Petit, Z00.00 [facility] - M.Santiago general adult [place] medical exam w/o abnormal findings R20.2 Paresthesia of skin R73.01 Impaired fasting glucose Office Visit 02/12/2018 9:15a Pulmonology And Marie G47.33 Obstructive sleep Sleep Services Of MD Bill apnea (adult) [facility] (pediatric) J45.909 Unspecified asthma, uncomplicated E66.01 Morbid (severe) obesity due to excess calories Office Visit 01/26/2018 11:50a [facility] Internal Carmencita Petit, R73.01 Impaired Medicine - M.DZachary fasting glucose [place] R51 Headache Office Visit 01/18/2018 Rheumatology Rodriguez M06.4 Inflammatory 9:40a Services Of Stacey Schaffer M.D. polyarthropathy R70.0 Elevated erythrocyte sedimentation rate Z79.899 Other detention (current) drug therapy M54.5 Low back pain D64.9 Anemia, unspecified Office Visit 01/12/2018 8:30a Pulmonology And Sleep Marieganesh Khan, R06.83 Snoring Services Of [facility] J45.20 Mild intermittent asthma, uncomplicated E66.01 Morbid (severe) obesity due to excess calories Z68.42 Body mass index (BMI) 45.0-49.9, adult Office Visit 12/14/2017 Rheumatology Rodriguez M06.4 Inflammatory 1:40p Services Of Stacey Schaffer M.D. polyarthropathy R70.0 Elevated erythrocyte sedimentation rate M54.5 Low back pain Z79.899 Other fulfillment representative (current) drug therapy R31.9 Hematuria, unspecified Office Visit 11/25/2017 9:00a Rheumatology Services Pradeep Ponce.1 Myalgia Of Stacey Wilson R70.0 Elevated erythrocyte sedimentation rate M54.5 Low back pain M06.4 Inflammatory polyarthropathy R20.8 Other disturbances of skin sensation G56.03 Carpal tunnel syndrome, bilateral upper limbs R06.83 Snoring Office Visit 10/13/2017 10:10a [facility] Internal Carmencita M25.50 Pain in Felisa Petit M.D. unspecified joint [place] Office Visit 10/06/2017 8:30a [facility] Internal Carmencita R07.89 Other chest pain Felisa Petit M.D. [place] M79.1 Myalgia Office Visit 01/15/2017 2:20p [facility] Internal Elena Willis, F32.9 Major depressive Medicine - N.P. disorder, single [place] episode, unspecified E78.00 Pure hypercholesterolemia, unspecified Office Visit 10/23/2016 8:45a Surgical Christian Barrios K64.8 Other hemorrhoids [facility] Of Stacey Geller M.D. D50.0 Iron deficiency anemia secondary to blood loss (chronic) R10.30 Lower abdominal pain, unspecified Office Visit 10/19/2016 11:50a [facility] Internal Carmencita K64.8 Other hemorrhoids Medicine Leticia Petit M.D. [place] D50.0 Iron deficiency anemia secondary to blood loss (chronic) R10.30 Lower abdominal pain, unspecified B34.9 Viral infection, unspecified Office Visit 10/14/2016 [facility] Elias K92.2 Gastrointestinal 2:42p [facility] M.D. hemorrhage, Hospitalists unspecified F32.9 Major depressive disorder, single episode, unspecified Office Visit 10/12/2016 [facility] Cyndy K92.2 Gastrointestinal 2:41p Assoc,pc Constance Espinoza hemorrhage, Hospitalists unspecified F32.9 Major depressive disorder, [...] Chaim Lundberg, 845.00 Sprains & Services Of Henrietta Wilson Strains Ankle Unspec Site Plan of Treatment Future Appointment(s):08/30/2018 2:40 pm - Rodriguez Schaffer M.D. at Rheumatology Services [facility]08/19/2018 - Bharti Bonner MDN39.0 Urinary tract infection, site not specifiedNew Medication:Ciprofloxacin HCL 500 mg - 1 by mouth twice a day for 3 daysN76.0 Acute vaginitisNew Medication:Cleocin 2 % - one applicatorful per vagina at bedime x 3 daysK92.2 Gastrointestinal hemorrhage, unspecified
[2018-09-20 13:31] VITALS: BP 149/77
--- NOTE | 2018-09-20 13:45 | UC ---
Respiratory Complaint HPI - HPI Summary HPI Summary: 38 yo female presents with intermittently productive cough over the last 1-2 weeks. She has felt hot/cold twice over that time and thinks she had a fever, but did not take her temperature. The cough is keeping her up at night. She does have a hx of asthma and has been using her albuterol inhaler with little relief. Denies sinus symptoms, sore throat, SOB, chest pain, n/v. - History of Current Complaint Chief Complaint: UCRespiratory Stated Complaint: COUGH Time Seen by Provider: 09/20/18 13:44 Hx Obtained From: Patient Hx Last Menstrual Period: 07/14/18 Onset/Duration: Gradual Onset Severity Initially: Moderate Severity Currently: Severe Pain Intensity: 8 Pain Scale Used: 0-10 Numeric Character: Cough: Productive - Allergies/Home Medications Allergies/Adverse Reactions: Allergies Allergy/AdvReac Type Severity Reaction Status Date / Time cephalexin [From Keflex] Allergy Hives Verified 09/20/18 13:32 codeine Allergy Nausea And Verified 09/20/18 13:32 Vomiting Sulfa (Sulfonamide Allergy Hives Verified 09/20/18 13:32 Antibiotics) Home Medications: Home Medications Fluticasone HFA 110 mcg(NF) [Flovent HFA 110 mcg(NF)] 1 puff INH BID 09/20/18 [ History Confirmed 09/20/18] Pheniramine/P-Eph/Acetaminophn [Theraflu Flu & Sore Throa] 1 beata PO 09/20/18 [ History] PMH/Surg Hx/FS Hx/Imm Hx Respiratory History: Asthma Psychological History: Anxiety, Depression - Surgical History Surgical History: Yes Surgery Procedure, Year, and Place: lap diamond, tubes in ears, gall bladder removed - Family History Known Family History: Positive: Unknown - Pt states she is "adopted" - Social History Occupation: Employed Full-time Lives: With Family Alcohol Use: Occasionally Substance Use Type: None Smoking Status (MU): Former Smoker Type: Cigarettes Length of Time of Smoking/Using Tobacco: 12 yrs Have You Smoked in the Last Year: No When Did the Patient Quit Smoking/Using Tobacco: 2013 - Immunization History Most Recent Influenza Vaccination: DECLINES Most Recent Tetanus Shot: unsure, will offer Most Recent Pneumonia Vaccination: never Review of Systems All Other Systems Reviewed And Are Negative: Yes Constitutional: Positive: Fever Skin: Positive: Negative Eyes: Positive: Negative ENT: Positive: Negative Respiratory: Positive: Cough Cardiovascular: Positive: Negative Gastrointestinal: Positive: Negative Neurovascular: Positive: Negative Neurological: Positive: Negative Psychological: Positive: Negative Physical Exam - Summary Physical Exam Summary: GENERAL: NAD. WDWN. No pain distress. SKIN: No rashes, sores, lesions, or open wounds. HEENT: Head: AT/NC Eyes: Conjunctiva clear without inflammation or discharge. Ears: Hearing grossly normal. TMs intact, no bulging, erythema, or edema. Nose: Nasal mucosa pink and moist. NTTP maxillary and frontal sinus. Throat: Posterior oropharynx without exudates, erythema, or tonsillar enlargement. Uvula midline. NECK: Supple. Nontender. No lymphadenopathy. CHEST: Mild wheezing throughout. No r/r. No accessory muscle use. Breathing comfortably and in no distress. CV: RRR. Without m/r/g. Pulses intact. Cap refill <2seconds NEURO: Alert. PSYCH: Age appropriate behavior. Triage Information Reviewed: Yes Vital Signs: Initial Vital Signs Temp 97.9 F 09/20/18 13:27 Pulse 79 09/20/18 13:27 Resp 18 09/20/18 13:27 BP 149/77 09/20/18 13:27 Pulse Ox 97 09/20/18 13:27 Vital Signs Reviewed: Yes Diagnostic Evaluation - Laboratory O2 Sat by Pulse Oximetry: 97 Respiratory Course/Dx - Course Course Of Treatment: Suspect bronchitis vs asthma exacerbation. - Differential Dx/Diagnosis Provider Diagnosis: Asthma exacerbation Discharge - Sign-Out/Discharge Documenting (check all that apply): Patient Departure All imaging exams completed and their final reports reviewed: No Studies - Discharge Plan Condition: Stable Disposition: HOME Prescriptions: Azithromycin TAB* [Zithromax TAB (Z-BEATA) 250 mg #6 tabs] 2 tab PO .TODAY, THEN 1 DAILY #1 beata Benzonatate CAP* [Tessalon 100 MG CAP*] 100 mg PO TID PRN #21 cap PRN Reason: Cough predniSONE TAB* [Deltasone 20 MG TAB*] 40 mg PO DAILY #10 tab Patient Education Materials: Acute Bronchitis (ED) Referrals: Carmencita Petit MD [Primary Care Provider] - Additional Instructions: If you develop a fever, shortness of breath, chest pain, new or worsening symptoms - please call your PCP or go to the ED. Your blood pressure was high at todays visit. Please see your primary provider within 4 weeks for recheck and re-evaluation. - Billing Disposition and Condition Condition: STABLE Disposition: Home
== END 2018-09-20 14:00 | disposition home or self-care (01) ==
LOC: UCEAST 13:17
DX: J45.901 Unspecified asthma with (acute) exacerbation (principal); Z88.1 Allergy status to other antibiotic agents; Z88.5 Allergy status to narcotic agent; Z88.2 Allergy status to sulfonamides; Z88.6 Allergy status to analgesic agent; Z87.891 Personal history of nicotine dependence
CPT/HCPCS: 99212; G0463

== ENCOUNTER 2019-01-22 16:30 | Emergency (ER) | payer BC ==
--- OUTSIDE RECORDS SUMMARY | 2019-01-22 16:35 | XMS REPORT | Continuity of Care Document ---
:1980 External Reference #:[id number] Author Name Sonya Jung Care Team Providers Name Role Phone Carmencita Petit MD Primary Care Physician Unavailable Payers Date Identification Numbers Payment Provider Subscriber Policy Number: [id number] [employer] Isra Gallegos PayID: [id number] [address] [address] [place] [address] Advance Directives Description No Information Available Problems Active Problems Provider Date Depressive disorder Carmencita Petit M.D. Onset: 10/19/2016 Iron deficiency anemia Carmencita Petit M.D. Onset: 10/19/2016 Note: due to hemorrhoidal bleeding Obesity Carmencita Petit M.D. Onset: 10/19/2016 Impaired fasting glycaemia Carmencita Petit M.D. Onset: 01/26/2018 Asthma Carmencita Petit M.D. Onset: 09/26/2018 Note: moderate asthma Inactive Problems Mild intermittent asthma Carmencita Petit M.D. 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 Tobacco Use Start: Unknown Former Cigarette Smoker Smoked 3/4 ppd for End: Unknown 11 years Smoking Status Reviewed: 12/28/18 Former Cigarette Smoker Smoked 3/4 ppd for 11 years ETOH Use Rarely consumes alcohol Tobacco Use Start: Unknown Patient is a former End: Unknown smoker Recreational Drug Use Denies Drug Use Exercise Type/Frequency Exercises regularly [employer] 3x week Allergies, Adverse Reactions, Alerts Active Allergies Reaction Severity Comments Date Codeine stomach issue 10/19/2016 Cephalexin hives 10/19/2016 Bactrim hives 10/19/2016 Medications Active Medications SIG Qnty Indications Ordering Date Provider Meloxicam take one tab twice 30tabs M06.4 Rodriguez Schaffer, 11/03/2018 7.5mg daily as needed M.D. Tablets for pain, avoid other nsaids Pulmicort 1 unit nebulizer 180ml Carmencita Petit, 10/10/2018 twice a day (not M.D. 0.25mg/2ML taking) Suspension Albuterol Sulfate four times a day 90ml J45.901 Carmencita Petit, 09/26/2018 as needed M.D. (2.5mg/3ML) 0.083% Nebulizer Onetouch Ultra Blue test twice a day 100units R73.01 Carmencita Petit, 01/26 and as needed M.D. Strips Ventolin HFA 1 unit puff every 8gm J45.20 Marie Khan, 01/12/2018 6 hours as needed 108(90Base) mcg/Act Aerosol Wrist Splint use nightly to 2units G56.03 Rodriguez Schaffer, 11/25/2017 [facility] [place]. discomfort in the right and left hand Sertraline HCL take 1 tablet by 90tabs F32.9 Carmencita Petit, 01/15/2017 mouth once daily M.D. 100mg Tablets History Medications Doxycycline 1 tablet by mouth 14caps Marie 10/12/2018 - Monohydrate every 12 hours MD Bill 11/03/2018 100mg Capsules Prednisone 2 tab by mouth every QS J45.901 Carmencita 10/10/2018 - 20mg day x4 days then 1 Katie Petit 11/03/2018 Tablets tab daily for 3 days, then 1/2 tab daily for 3 days Breo Ellipta 1 puff inhaled daily 60units J45.901 Carmencita 10/03/2018 - Katie Petit 12/28/2018 200-25mcg/Inh Aerosol Prednisone 2 1/2 tab daily for QS J45.901 Carmencita 10/03/2018 - 20mg 2 days, then 2 tab Katie Petit 10/10/2018 Tablets daily X 4 days then 1 tab daily for 3 days then 1/2 tab X 2 days Prednisone 3 tab by mouth every QS J45.901 Carmencita 09/26/2018 - 20mg day x1 days then 2 Katie Petit 10/03/2018 Tablets 1/2 tab daily for 2 days, then 2 tab daily X 3 days then 1/2 tab daily for 3 days Flovent Diskus 1 puff every 12 28units J45.901 Carmencita 09/26/2018 - hours , swish and Katie Petit 10/03/2018 250mcg/Blist Aerosol spit an hour later Ciprofloxacin HCL 1 by mouth twice a 6tabs N39.0 Bhartiganesh Bonner, 08/19/2018 - day for 3 days 08/23/2018 500mg Tablets Cleocin one applicatorful 40gm N76.0 Bharti Bonner, 08/19/2018 - 2% Cream per vagina at bedime 08/23/2018 x 3 days Plaquenil Take 2 by mouth 60tabs Rodriguez Schaffer, 07/04/2018 - 200mg daily ongoing M.DZachary 08/19/2018 Tablets Turmeric Curcumin Take one 90caps Rodriguez Schaffer, 04/28/2018 - capsule/tablet daily M.D. 09/26/2018 5-1000mg Capsules by mouth [place]-3 & [place]-6 take one 90caps Rodriguez Schaffer, 04/28/2018 - Fish Oil capsule/tablet daily M.D. 05/30/2018 1200mg by mouth Capsules Methotrexate take 4 30tabs M06.4 Rodriguez Schaffer, 04/20/2018 - 2.5mg capsules/tablets by M.D. 05/30/2018 Tablets mouth once weekly (not taking) Folic Acid take one 90tabs M06.4 Rodriguez Schaffer, 04/20/2018 - 1mg capsule/tablet daily M.D. 05/30/2018 Tablets by mouth (not taking) Vitamin B12 1 by mouth every day 30tabs Carmencita 04/05/2018 - 1000mcg Katie Petit 05/30/2018 Tablets ER Metformin HCL 1 by mouth every day 90tabs R73.01 [facility] 01/26/2018 - 500mg (not taking) Katie Petit 05/30/2018 Tablets Slow Fe 1 by mouth every day 30tabs Rodriguez Cantrelldor, 01/18/2018 - 142(45Fe) mg M.D. 05/30/2018 Tablets ER Amoxicillin one tab twice a day 14caps Zunilda 12/27/2017 - 500mg Rowe, [employer] 01/11/2018 Capsules Plaquenil Take 2 by mouth 60tabs M06.4 Rodriguez Cantrelldor, 12/14/2017 - 200mg daily ongoing M.D. 04/20/2018 Tablets B12 Fast Dissolve sublingual daily 90tabs Rodriguez Cantrelldor, 12/04/2017 - M.D. 04/04/2018 5000mcg Tablets Dispers Sertraline HCL 1 by mouth every day 30tabs F32.9 Elena Willis, 2016 - 50mg for N.P. 01/15/2017 Tablets Iron 1 by mouth every day Unknown - 325(65Fe) mg prn 01/11/2018 Tablets Zoloft 1 by mouth every day Unknown - 50mg Tablets 01/15/2017 Metamucil Unknown - [facility] Fiber 01/15/2017 63% Powder Ciprofloxacin HCL 1 tab by mouth twice Unknown - a day x7days 10/13/2017 500mg Tablets Ibuprofen as needed Unknown - 200mg 05/30/2018 Tablets Azithromycin Take 2 Tablets By Unknown - 250mg [place] Today Then 09/26/2018 Tablets Take 1 Tablet Daily For 4 Days Benzonatate take 1 capsule by Unknown - 100mg mouth three times a 09/26/2018 Capsules day if needed for cough Prednisone take 2 tablets by Unknown - 20mg mouth once daily 09/26/2018 Tablets Immunizations CPT Code Status Date Vaccine Lot # [id number] Refused 10/06/2017 Influenza Virus Vaccine, Quadrivalent, Split, Preservative Free Vital Signs Date Vital Result Comment 12/28/2018 11:05am Height 63 inches 5'3" Weight 263.50 lb Heart Rate 92 /min BP Systolic Sitting 134 mmHg BP Diastolic Sitting 80 mmHg Pain Level 2 O2 % BldC Oximetry 97 % BMI (Body Mass Index) 46.7 kg/m2 11/03/2018 4:17pm Height 63 inches 5'3" Weight 263.00 lb Heart Rate 89 /min BP Systolic Sitting 138 mmHg BP Diastolic Sitting 85 mmHg Respiratory Rate 14 /min Pain Level 5 BMI (Body Mass Index) 46.6 kg/m2 10/11/2018 6:59am Height 63 inches 5'3" Weight 260.00 lb Heart Rate 72 /min BP Systolic Sitting 116 mmHg Lue large cuff BP Diastolic Sitting 80 mmHg Lue large cuff Respiratory Rate 12 /min O2 % BldC Oximetry 98 % BMI (Body Mass Index) 46.1 kg/m2 Neck Circumference in inches 18 10/03/2018 10:07am Height 63 inches 5'3" Weight 257.00 lb Heart Rate 85 /min BP Systolic Sitting 130 mmHg BP Diastolic Sitting 90 mmHg O2 % BldC Oximetry 93 % BMI (Body Mass Index) 45.5 kg/m2 09/26/2018 10:50am Height 63 inches 5'3" Weight 251.00 lb Heart Rate 72 /min BP Systolic Sitting 128 mmHg BP Diastolic Sitting 90 mmHg Body Temperature 98.4 F O2 % BldC Oximetry 98 % BMI (Body Mass Index) 44.5 kg/m2 08/30/2018 2:57pm Height 63 inches 5'3" Weight [...] Date Facility Test Result H/L Range Note Laboratory test 10/31/2018 [facility] C Reactive 11.13 mg/L High <8.[address] [place] [address] [phone] Erythrocyte Sed Rate 44 mm/Hr High 0-20 1 Connective Tissue 10/31/2018 [facility] Anti-Nuclear Antibody 0.6 U [address] [place] [address] [phone] Cyclic Citrullinated Peptide <15.6 U 3 Interpretation See Comment 4 Anca AB Ser If 10/31/2018 [facility] C-Anca Negative Negative [address] [place] [address] [phone] P-Anca Negative Negative 5 Laboratory test 10/31/2018 [facility] Immunoglobulin E 6.3 kU/L <=[address] ([place]) [place] [address] [phone] Ua Routine 08/23/2018 [facility] Ua Specific [place] 1.010 Ua PH 7 Ua Color medium yellow Ua Appera cloudy Ua WBC + Ua Protein - Ua Glucose norm Ua Ketones - Ua Bilirubin - Ua Urobilinogen norm Ua Nitrite - Ua Occult Blood 250 Laboratory test 08/23/2018 [facility] Test neg finding Urine Laboratory test 08/23/2018 [facility] Gardnerella/Yeas SEE RESULT 7, [address] t: [place] [address] [phone] Laboratory test 08/23/2018 [facility] Amylase 17 U/L Low 29- [address] [place] [address] [phone] Lipase < 10 U/L Low 11.0-82.0 Hemoglobin A1c (Glyco HGB) 5.4 % N 4.0-5.6 9 Comp Metabolic Panel 08/23/2018 [facility] Sodium 139 mmol/L N 135-[address] [place] [address] [phone] Potassium 4.4 mmol/L N 3.5-5.0 Chloride 104 [...] Egfr Non- 115.7 >60 Egfr 140.0 >60 10 Laboratory test 08/23/2018 [facility] Erythrocyte Sed 32 mm/Hr High 0-[address] [place] [address] [phone] CBC Auto Diff 08/23/2018 [facility] White Blood 9.0 N 3.5- 10.[address] Count 10^3/[place] [address] [phone] Red Blood Count 4.93 10^6/uL N 4.00-5.40 [...] Blood Cells % 0 Laboratory test 08/23/2018 [facility] C Reactive 22.07 mg/L High <8.[address] [place] [address] [phone] Urine Culture And 08/19/2018 [facility] Urine SEE RESULT 11 , [address] [place] [address] [phone] Ua Routine 08/19/2018 [facility] Ua Specific 1.030 [place] Ua PH 5 Ua Color yellow Ua Appera clear Ua WBC trace Ua Protein neg Ua Glucose norm Ua Ketones neg Ua Bilirubin neg Ua Urobilinogen norm Ua Nitrite neg Ua Occult Blood neg CBC Auto Diff 05/26/2018 [facility] White Blood 8.6 10^3/uL N 3.5-10.[address] [place] [address] [phone] Red Blood Count 4.74 10^6/uL N 4.00-5.40 Hemoglobin 11.5 g/dL Low 12.0-16.0 Hematocrit 35 % N 35-47 Mean Corpuscular Volume 74 fL Low 80-97 14 Mean Corpuscular Hemoglobin 24 pg Low 27-31 [...] Cells % 0 Comp Metabolic Panel 05/26/2018 [facility] Sodium 139 mmol/L N 135-[address] [place] [address] [phone] Potassium 4.1 mmol/L N 3.5-5.0 Chloride 105 [...] Egfr Non- 114.1 >60 Egfr 138.0 >60 15 Laboratory test 05/26/2018 [facility] Erythrocyte Sed 29 mm/Hr High 0-14 [address] [place] [address] [phone] C Reactive Protein 10.86 mg/L High <8.01 17 Cortisol Free 04/14/2018 [facility] Urine Free 13 mcg/24h 3.5 -45 18 24HR Urine [address] [place] [address] [phone] Urine Collection Duration 24 h Urine Total Volume 1450 mL 19 Comp Metabolic Panel 04/08/2018 [facility] Sodium 138 mmol/L N 135-[address] [place] [address] [phone] Potassium 4.5 mmol/L N 3.5-5.0 Chloride 102 [...] Egfr Non- 96.8 >60 Egfr 117.2 >60 20 CBC Auto Diff 04/08/2018 [facility] White Blood 7.6 10^3/uL N 3.5-10.[address] [place] [address] [phone] Red Blood Count 4.79 10^6/uL N 4.00-5.40 [...] 0-2 Nucleated Red Blood Cells % 0 Laboratory test 04/08/2018 [facility] Erythrocyte Sed 39 mm/Hr High 0-14 [address] [place] [address] [phone] C Reactive Protein 15.29 mg/L High <8.01 22 Heavy Metal Blool 04/08/2018 [facility] Arsenic <1 ng/mL 0- 12 23 [address] [place] [address] [phone] Lead <1.0 g/dL 0.0-4.9 24 Mercury <1 ng/mL 0-9 25 Cadmium <0.2 ng/mL 0.0-4.[address] [place] [address] 27 [facility] [place] [address] [facility] Guardian First Name ANANYA Bhat Guardian Last Name PRESTON GALLEGOS Venous/Capillary Heavy Metals Venous Patient Race WHITE Submitting Laboratory Phone [phone] Laboratory test 04/08/2018 [facility] Methylmalonic 0.10 <= 0.40 29 finding 101 [facility] Acid Mma nmol/[place] [address] [phone] Basic Metabolic 04/08/2018 [facility] Sodium 139 mmol/L N 135- [address] [place] [address] [phone] Potassium 4.4 mmol/L N 3.5-5.0 Chloride 103 mmol/L N 101-111 Co2 Carbon Dioxide 27 mmol/L N 22-32 Anion Gap 9 mmol/L N 2-11 Glucose 111 mg/dL High 70-100 Blood Urea Nitrogen 8 mg/dL N 6-24 Creatinine 0.69 mg/dL N 0.51-0.95 BUN/Creatinine Ratio 11.6 N 8-20 Calcium 9.0 mg/dL N 8.6-10.3 Egfr Non- 95.2 >60 Egfr 115.2 >60 30 HIV 1/2 AB 04/08/2018 [facility] HIV 1 2 Nonreactive Nonreactive [address] [place] [address] [phone] Laboratory 04/08/2018 [facility] Vitamin B12 884 pg/mL N 180- 914 32 test finding [address] [place] [address] [phone] Lyme Disease Serology Negative Negative 33 Laboratory test 04/05/2018 [facility] Hemoglobin A1c 5.7 5-7 finding Laboratory test 01/13/2018 [facility] Erythrocyte Sed 38 mm/Hr High 0-14 [address] [place] [address] [phone] CRP High Sensitivity 20.86 mg/L 35 C Reactive Protein 19.71 mg/L High < 5.00 36 CBC Auto Diff 01/13/2018 [facility] White Blood 7.8 10^3/uL N 3.5-10.[address] [place] [address] [phone] Red Blood Count 4.55 10^6/uL N 4.0-5.4 Hemoglobin 10.8 g/dL Low 12.0-16.0 Hematocrit 33 % Low 35-47 Mean Corpuscular Volume 72 fL Low 80-97 37 Mean Corpuscular Hemoglobin 24 pg Low 27-31 [...] Cells % 0 Comp Metabolic Panel 01/13/2018 [facility] Sodium 138 mmol/L Low 139-[address] [place] [address] [phone] Potassium 4.4 mmol/L N 3.5-5.0 Chloride 104 [...] Egfr Non- 103.9 >60 Egfr 133.6 >60 38 Urinalysis Profile 12/14/2017 [facility] Urine Color Yellow [address] [place] [address] [phone] Urine Appearance Cloudy Urine Specific [place] 1.020 N 1.010-1.030 Urine pH 6.0 N 5-9 Urine Urobilinogen Negative Negative Urine Ketones Negative Negative Urine Protein Negative Negative Urine Leukocytes 3+ Abnormal Negative Urine Blood Negative Negative * * Abnormal Negative 39 Urine Nitrite Negative Negative Urine Bilirubin Negative Negative Urine Glucose Negative Negative Urine White Blood Cell 3+(>20/hpf) Abnormal Absent Urine Red Blood Cell 2+(6-10/hpf) Abnormal Absent Urine Bacteria Absent Absent Urine Squamous Epithelial Cell Present Abnormal Absent Urine Culture And 12/14/2017 [facility] Urine Culture SEE RESULT [address] [place] [address] [phone] Laboratory test 11/25/2017 [facility] Thyroperoxidase AB 0.44 IU /mL N <9 41, finding [address] [place] [address] [phone] Vitamin B12 And 11/25/2017 [facility] Vitamin B12 204 pg/mL N 180 [address] [place] [address] [phone] Folic Acid (Folate) 10.13 ng/mL >3.99 44 Tick-Borne Panel 11/25/2017 [facility] Babesia Negative Negative PCR Blood [address] [place] [address] [phone] Babesia ducani Negative Negative Babesia divergens/Mo-1 Negative Negative 45 Anaplasma phagocytophilum Negative Negative Ehrlichia chaffeensis Negative Negative Ehrlichia ewingii/canis Negative Negative Ehrlichia muris-like Negative Negative 46 B. miyamotoi PCR, B Negative Negative 47 Laboratory test 11/25/2017 [facility] Cyclic Citrullinated < 15.6 U 48 finding [address] [place] [address] [phone] Aso (Antistreptolysin O) Titer 200 IU/mL IU/mL Abnormal <200 Iu/mL 49 Hla B27 11/25/2017 [facility] Hla B27 Negative [address] [place], [place] [address] [phone] Hla B27 Interp See Comment 51 Celiac Hla 11/25/2017 [facility] Hla-Dqa1 SEE BELOW [address] [place] [address] [phone] [id number]-[id number] SEE BELOW 53 Celiac Gene Pairs Present? Yes Celiac Gene Interpretation See Comment 54 Celiac Panel 11/25/2017 [facility] Immunoglobulin A 266 mg/dL 61 - [address] [place] [address] [phone] Tissue Transglutaminase IgA Ab <1.2 U/mL 55 Celiac Interpretation See Comment 56 Protein 11/25/2017 [facility] Total 7.2 g/dL 6.3 - Electrophoresis [address] Protein(Pep) 7.9 [place] [address] [phone] Albumin 3.3 g/dL Abnormal 3.4-4.7 Alpha-1 Globulin 0.3 g/dL 0.1-0.3 Alpha-2 Globulin 1.0 g/dL 0.6-1.0 Beta Globulin 1.2 g/dL 0.7-1.2 Gamma Globulin 1.5 g/dL 0.6-1.6 Albumin/Globulin Ratio 0.84 Impression See Comment 57 Laboratory test 11/25/2017 [facility] Angiotensin 19 U/L 8 - 53 58 finding 101 [facility] [place] [address] [phone] C Reactive Protein 12.87 mg/L High < 5.00 59 Erythrocyte Sed Rate 44 mm/Hr High 0-14 60 Anca AB Ser If 11/25/2017 [facility] C-Anca Negative Negative [address] [place] [address] [phone] P-Anca Negative Negative 61 Laboratory test 10/13/2017 [facility] Anti Nuclear 0.5 U [address] [place] [address] [phone] Erythrocyte Sed Rate 41 mm/Hr High 0-14 Anti Double Stranded Dna AB <12.3 IU/mL 63 Rheumatoid Factor <15 IU/mL <15 64 C Reactive Protein 17.85 mg/L High < 5.00 65 Creatine Kinase(CK) 56 U/L N 10-223 Lyme Disease Serology Negative Negative 66 Ssa/SSB Abs Igg 10/13/2017 [facility] SS-A/Ro Antibody <0.2 U 67 [address] [place] [address] [phone] SS-B/La Antibody <0.2 U 68 Urinalysis Profile 10/05/2017 [facility] Urine Color Yellow [address] [place] [address] [phone] Urine Appearance Cloudy Urine Specific [place] > 1.060 High 1.010-1.030 Urine pH 5.0 [...] Urine Squamous Epithelial Cell Present Abnormal Absent Laboratory test 10/05/2017 [facility] Troponin-I (TnI) 0.00 ng/ mL <0.04 finding [address] [place] [address] [phone] Lyme Disease Serology Negative Negative 69 CBC Auto Diff 10/05/2017 [facility] White Blood 10.2 10^3/uL N 3.5-10.8 [address] [facility] [place] [address] [phone] Red Blood Count 5.03 10^6/uL N 4.0-5.4 Hemoglobin 12.1 g/dL N 12.0-16.0 Hematocrit 37 % N 35-47 Mean Corpuscular Volume 73 fL Low 80-97 70 Mean Corpuscular Hemoglobin 24 pg Low 27-31 [...] Cells % 0 Comp Metabolic Panel 10/05/2017 [facility] Sodium 137 mmol/L N 133-[address] [place] [address] [phone] Potassium 4.2 mmol/L N 3.5-5.0 Chloride 105 [...] Egfr Non- 118.7 >60 Egfr 152.7 >60 71 Laboratory test 10/05/2017 [facility] Creatine 57 U/L N 10- [address] Kinase(CK) [place] [address] [phone] C Reactive Protein 18.03 mg/L High < 5.00 72 Troponin-I (TnI) 0.00 ng/mL <0.04 CKMB 10/05/2017 [facility] CKMB ng/mL 1.3 ng/mL N 0.6-6.[address] [place] [address] [phone] Laboratory test 10/05/2017 [facility] HCG < 0.60 [address] mIU/[place] [address] [phone] Lactic Acid 1.1 mmol/L N 0.5-2.0 74 CBC Auto Diff 10/05/2017 [facility] White Blood 10.1 10^3/uL N 3.5-10.[address] [place] [address] [phone] Red Blood Count 4.92 10^6/uL N 4.0-5.4 [...] Red Blood Cells % 0 Inr/Protime 10/05/2017 [facility] Inr 0.90 N 0.77-1.[address] [place], [place] [address] [phone] Laboratory test 10/05/2017 [facility] Partial 34.5 seconds N 26.0-36.[address] [place] [address] [phone] Comp Metabolic 10/05/2017 [facility] Sodium 133 mmol/L N 133- [address] [place] [address] [phone] Potassium 3.8 mmol/L N 3.5-5.0 Chloride 102 [...] Egfr Non- 103.9 >60 Egfr 133.6 >60 75 Laboratory test 10/05/2017 [facility] Creatine 64 U/L N 10- [address] Kinase(CK) [place] [address] [phone] Troponin-I (TnI) 0.01 ng/mL <0.04 HCG < 0.60 mIU/mL 76 Urine Culture And 10/05/2017 [facility] Urine Culture SEE RESULT [address] [place] [address] [phone] Laboratory test 02/01/2017 [facility] Surgical SEE RESULT [address] [place] [address] [phone] Laboratory test 02/01/2017 [facility] Clotest SEE RESULT [address] [place] [address] [phone] Comp Metabolic 01/19/2017 [facility] Sodium 136 mmol/L N 133- [address] [place] [address] [phone] Potassium 4.1 mmol/L N 3.5-5.0 Chloride 104 [...] 104.4 N >60 Egfr 134.3 N >60 80 Lipid Profile 01/19/2017 [facility] Triglycerides 143 mg/dL N 81 (Trig/Chol/HDL) [address] [place] [address] [phone] Cholesterol 175 mg/dL N 82 HDL Cholesterol 35.5 mg/dL N 83 LDL Cholesterol 111 mg/dL N 84 Laboratory test 01/19/2017 [facility] TSH (Thyroid 2.41 N 0.34 -5.60 [address] Stim Horm) mcIU/[place] [address] [phone] Urine Culture And 10/19/2016 [facility] Urine SEE RESULT [address] [place] [address] [phone] 1 Test Performed by: [facility] [address] [place], [place] [address] Berto Paul M.D. Director of Laboratory 2 REFERENCE VALUE <=1.0 (Negative) 3 REFERENCE VALUE <20.0 (Negative) 4 Tests for antibodies to dsDNA and SADAF antigens are not performed automatically unless the BOGDAN result is > or= 3.0 U. Studies performed at [facility] indicate that positive BOGDAN results <3.0 U are rarely accompanied by positive second order tests. Test Performed by: [place] [address] 5 Negative for cANCA and pANCA patterns by immunofluorescence. ADDITIONAL INFORMATION This test was developed and its performance characteristics determined by [facility] in a manner consistent with CLIA requirements. This test has not been cleared or approved by the U.S. Food and Drug Administration. Test Performed by: [place] [address] 6 Test Performed by: [place] [address] 7 [id number] SEE RESULT BELOW Name: ANANYA FELICIANO : [address]: Carmencita Petit MD Acct: [id number] Unit: [id number] AGE: 38 Location: [facility] Re08/23/18 SEX: F Status: REG REF SPEC: [id number] RAVEN: 08/23/18-[address]: Carmencita Petit MD REQ: [id number] RECD: 08/23/18-1320 STATUS: COMP _ SOURCE: VAGINAL SPDESC: ORDERED: Marin,Yeast DNA COMMENTS: [id number] QUERIES: Would you like to order Trichomonas [...] . END OF REPORT DEPARTMENT OF PATHOLOGY, [address] [place] [address] Berto Paul M.D. Director [facility] # [id number] 9 Therapeutic target for the treatment of diabetes mellitus patients is <7% HBA1C, and in selective patients <6.0%. Please refer to [place] [employer] diabetic care guidelines for further information. 10 Because ethnic data is not always readily [...] 15-29 5 Kidney failure <15 (or dialysis) 11 [id number] SEE RESULT BELOW Name: ANANYA FELICIANO : [address]: Bharti Bonner MD Acct: [id number] Unit: [id number] AGE: 38 Location: [facility] Re08/19/18 SEX: F Status: REG REF SPEC: [id number] RAVEN: 08/19/18-1212 [facility] DR: Bharti Bonner MD REQ: [id number] RECD: 08/19/18 STATUS: COMP _ SOURCE: URINE SPDESC: ORDERED: Urine Culture COMMENTS: [id number] Urine Source: Clean Catch Procedure Result Reported Site Urine Culture Final 08/20/18- 1604 ML No Growth (<1,000 CFU/mL) * ML - Main Lab . END OF REPORT DEPARTMENT OF PATHOLOGY, [address] [place], [place] [address] Berto Paul M.D. Director [facility] # [id number] 13 Please check labs 2 days before follow up 14 Consistent with Previous Results Reported on 10/12/17 15 Because ethnic data is not always readily [...] 15-29 5 Kidney failure <15 (or dialysis) 16 Please check labs 2 days before follow up 17 Please check labs 2 days before follow up 18 [id number] 19 ADDITIONAL INFORMATION This test was developed and its performance characteristics determined by [facility] in a manner consistent with CLIA requirements. This test has not been cleared or approved by the U.S. Food and Drug Administration. Test Performed by: [facility] [address] [place] [address] 20 Because ethnic data is not always readily [...] 15-29 5 Kidney failure <15 (or dialysis) 21 Please check labs 2 days before follow up 22 Please check labs 2 days before follow up 23 ADDITIONAL INFORMATION This test was developed and its performance characteristics determined by [facility] in a manner consistent with CLIA requirements. This test has not been cleared or approved by the U.S. Food and Drug Administration. 24 ADDITIONAL INFORMATION Testing performed by Inductively Coupled Plasma-Mass Spectrometry (ICP-MS). This test was developed and its performance characteristics determined by [facility] in a manner consistent with CLIA requirements. This test has not been cleared or approved by the U.S. Food and Drug Administration. 25 ADDITIONAL INFORMATION This test was developed and its performance characteristics determined by [facility] in a manner consistent with CLIA requirements. This test has not been cleared or approved by the U.S. Food and Drug Administration. 26 ADDITIONAL INFORMATION This test was developed and its performance characteristics determined by [facility] in a manner consistent with CLIA requirements. This test has not been cleared or approved by the U.S. Food and Drug Administration. [address] 28 Test Performed by: [facility] - [facility] [address] [place] [address] 29 ADDITIONAL INFORMATION This test was developed and its performance characteristics determined by [facility] in a manner consistent with CLIA requirements. This test has not been cleared or approved by the U.S. Food and Drug Administration. Test Performed by: [facility] - [facility] [address] [place] [address] 30 Because ethnic data is not always readily [...] 15-29 5 Kidney failure <15 (or dialysis) 31 It is recognized that currently available assays [...] 95% confidence interval of 99.78 to 99.96%. 32 Normal Range 180 to 914 Indeterminate Range 145 to 180 Deficient Range <145 33 No evidence of antibodies to B. burgdorferi detected. False negative results may occur in recently infected patients (<=2 weeks) due to low or undetectable antibody levels to B. burgdorferi. If recent exposure is suspected, a second sample should be collected and tested in 2-4 weeks. Test Performed by: [facility] [address] [place] [address] 34 Please check 2 days before follow up UA ALREADY DONE CANCEL PER PT 35 Low risk: <1.00 Average risk: 1.00-3.00 High risk: >3.00 36 Acute inflammation: >10.00 37 Consistent with Previous Results Reported on 10/05/17 38 Because ethnic data is not always readily [...] 15-29 5 Kidney failure <15 (or dialysis) 39 *Ascorbic acid is present which may interfere with detection of blood. 40 SEE RESULT BELOW Name: ANANYA FELICIANO : [address]: Rodriguez Schaffer MD Acct: [id number] Unit: [id number] AGE: 37 Location: [facility] Re12/14/17 SEX: F Status: REG REF SPEC: [id number] RAVEN: 12/14/[address]: Rodriguez Schaffer MD REQ: [id number] RECD: 12/14/17 STATUS: VENUS SMITH DR: Carmencita Petit MD _ [facility] ORDERED: Urine Culture Procedure Result Reported Site Urine Culture Final 12/15/17- 1425 ML Organism 1 STREP GROUP B [place] Count >100,000 (Many) CFU/ML Susceptibility testing of penicillins and other B-lactams approved by FDA for treatment of Streptococcus pyogenes (Group A Strep) and Streptococcus agalactiae (Group B Strep) is not necessary for clinical purposes and need not be done routinely, since as with vancomycin, resistant strains have not been recognized. (CLSI R500-L83;p.66) Positive isolates will be saved for one week. Please call the Microbiology Laboratory if further susceptibility testing is needed. * - [facility] . END OF REPORT DEPARTMENT OF PATHOLOGY, [address] [place] [address] Berto Paul M.D. Director [facility] # [id number] 41 Please check labs this week 42 Please check labs this week 43 Normal Range 180 to 914 Indeterminate Range 145 to 180 Deficient Range <145 44 Please check labs this week 45 ADDITIONAL INFORMATION This test was developed and its performance characteristics determined by [facility] in a manner consistent with CLIA requirements. This test has not been cleared or approved by the U.S. Food and Drug Administration. 46 ADDITIONAL INFORMATION This test was developed and its performance characteristics determined by [facility] in a manner consistent with CLIA requirements. This test has not been cleared or approved by the U.S. Food and Drug Administration. 47 ADDITIONAL INFORMATION This test was developed and its performance characteristics determined by [facility] in a manner consistent with CLIA requirements. This test has not been cleared or approved by the U.S. Food and Drug Administration. Test Performed by: [facility] - [address] [address] 48 REFERENCE VALUE <20.0 (Negative) Test Performed by: [facility] - [address] [address] 49 Normal values may vary with age, [...] baseline level at 6-12 twelve months. 50 REFERENCE VALUE Not Applicable 51 RESULT: HLA-B27 antigen was not detected. ADDITIONAL INFORMATION Method: Flow Cytometry Performing Laboratory CLIA# [id number] Test Performed by: [facility] [employer] - [address] [address] 52 RESULT: 02:01,05:01 REFERENCE VALUE Not Applicable 53 RESULT: 02:01,02:02 DQ Serologic Equivalent: 2,2 REFERENCE VALUE Not Applicable 54 These genes are permissive for celiac disease. The absence of HLA celiac permissive genes would make the presence of celiac disease unlikely. However, these genes can also be present in the normal population. ADDITIONAL INFORMATION Method: Molecular typing of HLA antigens performed using reverse SSOP and/or SSP methods, reported as serological equivalents and low to medium resolution molecular values. Performing Laboratory CLIA# [id number] Test Performed by: [facility] [employer] - [address] [address] 55 REFERENCE VALUE <4.0 (Negative) Test Performed by: [address] [address] 56 Negative serology. Celiac disease unlikely. However, approximately 10% of patients with celiac disease are seronegative. Also, patients who are already adhering to a gluten-free diet may be seronegative. If celiac disease is highly clinically suspected, consider HLA-DQ typing. Test Performed by: [address] [address] 57 RESULT: No apparent monoclonal protein on serum electrophoresis. Test Performed by: [address] [address] 58 Test Performed by: [address] [address] 59 Acute inflammation: >10.00 60 Please check labs this week 61 Negative for cANCA and pANCA patterns by immunofluorescence. ADDITIONAL INFORMATION This test was developed and its performance characteristics determined by [facility] in a manner consistent with CLIA requirements. This test has not been cleared or approved by the U.S. Food and Drug Administration. Test Performed by: [address] [address] 62 REFERENCE VALUE <=1.0 (Negative) Test Performed by: [address] [address] 63 REFERENCE VALUE <30.0 (Negative) Test Performed by: [address] [address] 64 Test Performed by: [address] [address] 65 Acute inflammation: >10.00 66 Serologic response to B. burgdorferi infection is not detected, but cannot rule out early infection during which low or undetectable antibody levels to B. burgdorferi may be present. If clinically indicated, a new serum specimen should be submitted in 7-14 days. Test Performed by: [facility] [employer] - [address] [place] [address] 67 REFERENCE VALUE <1.0 (Negative) 68 REFERENCE VALUE <1.0 (Negative) Test Performed by: [facility] - [address] [address] 69 Serologic response to B. burgdorferi infection is not detected, but cannot rule out early infection during which low or undetectable antibody levels to B. burgdorferi may be present. If clinically indicated, a new serum specimen should be submitted in 7-14 days. Test Performed by: [facility] - [address] [address] 70 Consistent with Previous Results Reported on 10/05/17. 71 Because ethnic data is not always readily [...] 15-29 5 Kidney failure <15 (or dialysis) 72 Acute inflammation: >10.00 73 <5.0 Negative 5.0 - 25.0 Indeterminate (Repeat testing recommended after 72 hours) >25.0 Positive Perimenopausal women can display HCG levels of up to 20 mIU/mL 74 [facility] Severe Sepsis and Septic Shock Management Bundle Measure requires all lactic acids initially measuring >2.0 mmol/L be repeated. 75 Because ethnic data is not always [...] 5 Kidney failure <15 (or dialysis) 76 <5.0 Negative 5.0 - 25.0 Indeterminate (Repeat testing recommended after 72 hours) >25.0 Positive Perimenopausal women can display HCG levels of up to 20 mIU/mL 77 SEE RESULT BELOW Name: ANANYA FELICIANO : [address]: Ulises Bates MD Acct: [id number] Unit: [id number] AGE: 37 Location: ED Re10/05/17 SEX: F Status: DEP ER SPEC: [id number] RAVEN: 10/05/17 [facility] DR: Ulises aBtes MD REQ: [id number] RECD: 10/05/17 STATUS: VENUS SMITH DR: Carmencita Petit MD _ SOURCE: URINE SPDESC: ORDERED: Urine Culture Procedure Result Reported Site Urine Culture Final 10/07/17- 928 ML No growth of clinically significant organisms * ML - MAIN LAB ([facility]1) . END OF REPORT * ML=Testing performed at Main Lab DEPARTMENT OF PATHOLOGY, [address] [place] [address] Berto Paul M.D. Director [facility] # [id number] 78 SEE RESULT BELOW Name: ANANYA FELICIANO : [address]: Aurelio Paz MD Acct: [id number] Unit: [id number] AGE: 36 Location: ENDO Re02/01/17 SEX: F Status: DEP REF SPEC: [id number] RAVEN: 02/01/17- [facility] DR: Aurelio Paz MD REQ: [id number] RECD: 02/01/17 STATUS: CHIDI SMITH DR: Elena Willis DYE HOUSE HAND _ ORDERED: LEVEL 4 FINAL DIAGNOSIS Duodenum, [...] at Main Lab DEPARTMENT OF PATHOLOGY, [address] [place] [address] Berto Paul M.D. Director [facility] # [id number] 79 SEE RESULT BELOW Name: PITERSEDA BENJAMINANANYA M : [address]: Aurelio Paz MD Acct: [id number] Unit: [id number] AGE: 36 Location: ENDO Re02/01/17 SEX: F Status: REG REF SPEC: [id number] RAVEN: 02/01/17-1251 [facility] DR: Aurelio Paz MD REQ: [id number] RECD: 02/01/17-131 STATUS: VENUS SMITH DR: Elena Willis DYE HOUSE HAND _ SOURCE: GAS ANTRUM SPDESC: ORDERED: Clotest Procedure Result Reported Site Clotest Final 02/02/17- 0757 ML Clotest Negative * ML - MAIN LAB ([facility]) . END OF REPORT * ML=Testing performed at Main Lab DEPARTMENT OF PATHOLOGY, [address] [place] [address] Berto Paul M.D. Director [facility] # [id number] 80 Because ethnic data is not always readily [...] 15-29 5 Kidney failure <15 (or dialysis) 81 Desirable <150 Borderline high 150-199 High 200-499 Very High >500 82 Desirable <200 Borderline high 200-239 High >239 83 Low <40 Desirable: 40-60 High: >60 84 Desirable: <100 mg/dL Near Optimal: 100-129 mg/dL Borderline High: 130-159 mg/dL High: 160-189 mg/dL Very High: >189 mg/dL 85 FASTING 10 HOUR 86 SEE RESULT BELOW Name: ANANYA FELICIANO : [address]: Carmencita Petit MD Acct: [id number] Unit: [id number] AGE: 36 Location: [facility] Re10/19/16 SEX: F Status: REG REF SPEC: [id number] RAVEN: 10/19/16-0538 [facility] DR: Carmencita Petit MD REQ: [id number] RECD: 10/19/16 STATUS: COMP _ SOURCE: URINE SPDESC: ORDERED: Urine Culture COMMENTS: [id number] Urine Source: Random Procedure Result Reported Site Urine Culture Final 10/21/16- 34 ML No growth of clinically significant organisms * ML - MAIN LAB ([facility]) . END OF REPORT * ML=Testing performed at Main Lab DEPARTMENT OF PATHOLOGY, [address] [place] [address] Berto Paul M.D. Director [facility] # [id number] Procedures Date Code Description Status 10/07/2018 85254 Nerve Conduction 07-08 Studies Completed 10/07/2018 06198 Needle Electromyography Each Extremity W/Related Completed Paraspinal Areas 09/26/2018 03724 Inhalation TX For Acute Airway Obstruction Completed W/Nebulizer/Inhaler 05/04/2018 73547 Nerve Conduction 07-08 Studies Completed 05/04/2018 18771 Needle Electromyography Complete, Five Or More Muscles Completed Studied 05/04/2018 89291 Needle Electromyography Each Extremity W/Related Completed Paraspinal Areas 01/27/2018 02056 Diffusing Capacity Completed 01/27/2018 26314 Plethysmography Determination Lung Volumes & Per Airway Completed Resist 01/27/2018 64301 Pulmonary Function><Bronchodil Completed 01/19/2018 97636 Sleep Study Unattended,HRT Rate,Oxygen Sat,Resp Completed Effort/Airflow 10/19/2017 45233 Stress Test Completed 10/23/2016 32405 Anoscopy Completed 10/13/2016 14245902 Colonoscopy Completed Encounters Type Date Location Provider Dx Diagnosis Office Visit 11/03/2018 Rheumatology Rodriguez Schaffer, 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 with (acute) [place] exacerbation Office Visit 09/26/2018 [facility] Carmencita J45.901 Unspecified asthma 10:50a Felisa Petit M.D. with (acute) [place] exacerbation Office Visit 08/30/2018 Rheumatology Rodriguez M06.4 Inflammatory 2:40p Services Of Stacey Schaffer M.D. polyarthropathy R79.82 Elevated C-reactive protein (CRP) R70.0 Elevated erythrocyte sedimentation rate R20.8 Other disturbances of skin sensation Office Visit 08/23/2018 9:50a [facility] Medicine Carmencita Petit, R30.0 Dysuria - Jax Wilson R10.10 Upper abdominal pain, unspecified N92.6 Irregular menstruation, unspecified R73.01 Impaired fasting glucose N76.0 Acute vaginitis Office Visit 08/19/2018 11:00a [facility] Bharti Bonner, N39.0 Urinary tract Medicine - infection, site [place] not specified N76.0 Acute vaginitis K92.2 Gastrointestinal hemorrhage, unspecified Office Visit 05/30/2018 Rheumatology Rodriguez 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 general adult [place] medical exam w/o abnormal findings R20.2 Paresthesia of skin R73.01 Impaired fasting glucose Office Visit 02/12/2018 9:15a Pulmonology And Marie G47.33 Obstructive sleep Sleep Services Of MD Bill apnea (adult) [facility] (pediatric) J45.909 Unspecified asthma, uncomplicated E66.01 Morbid (severe) obesity due to excess calories Office Visit 01/26/2018 11:50a [facility] Carmencita Petit, R73.01 Impaired Medicine - MMichaela fasting glucose [place] R51 Headache Office Visit 01/18/2018 Rheumatology Rodriguez M06.4 Inflammatory 9:40a Services Of Stacey Schaffer M.D. polyarthropathy R70.0 Elevated erythrocyte sedimentation rate Z79.899 Other skilled nursing (current) drug therapy M54.5 Low back pain D64.9 Anemia, unspecified Office Visit 01/12/2018 8:30a Pulmonology And Sleep Marie Bill, R06.83 Snoring [facility] J45.20 Mild intermittent asthma, uncomplicated E66.01 Morbid (severe) obesity due to excess calories Z68.42 Body mass index (BMI) 45.0-49.9, adult Office Visit 12/14/2017 Rheumatology Rodriguez M06.4 Inflammatory 1:40p Services Of Stacey Schaffer M.D. polyarthropathy R70.0 Elevated erythrocyte sedimentation rate M54.5 Low back pain Z79.899 Other skilled nursing (current) drug therapy R31.9 Hematuria, unspecified Office Visit 11/25/2017 9:00a Rheumatology Services Rodriguez Schaffer M79.1 Myalgia Of Stacey Wilson R70.0 Elevated erythrocyte sedimentation rate M54.5 Low back pain M06.4 Inflammatory polyarthropathy R20.8 Other disturbances of skin sensation G56.03 Carpal tunnel syndrome, bilateral upper limbs R06.83 Snoring Office Visit 10/13/2017 10:10a [facility] Carmencita M25.50 Pain in Medicine Leticia Petit M.D. unspecified joint [place] Office Visit 10/06/2017 8:30a [facility] Carmencita R07.89 Other chest pain Medicine - Katie Petit M79.1 Myalgia Office Visit 01/15/2017 2:20p [facility] Elena Varn, F32.9 Major depressive Medicine N.P. disorder, single episode, unspecified E78.00 Pure hypercholesterolemia, unspecified Office Visit 10/23/2016 8:45a Surgical Christian Barrios K64.8 Other hemorrhoids [facility] Katie Geller D50.0 Iron deficiency anemia secondary to blood loss (chronic) R10.30 Lower abdominal pain, unspecified Office Visit 10/19/2016 11:50a [facility] Carmencita K64.8 Other hemorrhoids Medicine - Katie Petit D50.0 Iron deficiency anemia secondary to blood loss (chronic) R10.30 Lower abdominal pain, unspecified B34.9 Viral infection, unspecified Office Visit 10/14/2016 [facility] K92.2 Gastrointestinal 2:42p [facility] M.D. hemorrhage, Hospitalists unspecified F32.9 Major depressive disorder, single episode, unspecified Office Visit 10/12/2016 [facility] Cyndy K92.2 Gastrointestinal 2:41p [facility]oc,[facility] Espinoza D.O. [...] Chaim Lundberg, 845.00 Sprains & Services Of C.M.AZachary MorochoDZachary Strains Ankle Unspec Site Plan of Treatment Future Appointment(s):03/30/2019 9:20 am - Rodriguez Schaffer M.D. at [facility]ology [facility]04/03/2019 9:00 am - Marie Khan MD at Pulmonology [facility]12/28/2018 - Rodriguez Schaffer M.D.M06.4 Inflammatory rvcordzhvhssvbsD68.82 Elevated C-reactive protein (CRP)R70.0 Elevated erythrocyte sedimentation rateFollow up:Follow up in 3 months or sooner if owzsctE08.572 Pain in left ankle and joints of left footComments:Encourage heart healthy weight loss; exercise
[2019-01-22 16:43] VITALS: BP 131/76
--- NOTE | 2019-01-22 17:12 | UC ---
Cardiac HPI - HPI Summary HPI Summary: C/O mid-lower sternal chest pressure over the last week, without nausea or SOB. Doesn't feel like asthma. Has had a lot of stress, feels like it is anxiety. - History of Current Complaint Chief Complaint: UCChestPain Stated Complaint: CHEST HEAVINESS Hx Obtained From: Patient Hx Last Menstrual Period: 452307 Onset/Duration: Gradual Onset, Lasting Weeks - 1, Still Present Initial Severity: Moderate Current Severity: Severe Pain Intensity: 8 Chest Pain Location: Lower Sternal Character: Heaviness, Pressure/Squeezing Aggravating Factor(s): Nothing Alleviating Factor(s): Nothing Associated Signs & Symptoms: Positive: Chest Pain, Anxiety, Recent Stress, Headaches, Fever. Negative: SOB, Palpitations, Cough - Risk Factors Pulmonary Embolism Risk Factors: Negative Cardiac Risk Factors: Negative Atrial Fibrillation: Negative - Allergy/Home Medications Allergies/Adverse Reactions: Allergies Allergy/AdvReac Type Severity Reaction Status Date / Time cephalexin [From Keflex] Allergy Hives Verified 01/22/19 16:43 codeine Allergy Nausea And Verified 01/22/19 16:43 Vomiting Sulfa (Sulfonamide Allergy Hives Verified 01/22/19 16:43 Antibiotics) Home Medications: Home Medications Albuterol HFA INHALER* [Ventolin HFA Inhaler*] 2 puff INH Q4H PRN 01/22/19 [ History Confirmed 01/22/19] PMH/Surg Hx/FS Hx/Imm Hx Respiratory History: Asthma - Surgical History Surgical History: Yes Surgery Procedure, Year, and Place: lap diamond, tubes in ears, gall bladder removed - Family History Known Family History: Positive: Unknown - Pt states she is "adopted" - Social History Occupation: Employed Full-time Lives: With Family Alcohol Use: Occasionally Substance Use Type: None Smoking Status (MU): Former Smoker Type: Cigarettes Length of Time of Smoking/Using Tobacco: 12 yrs Have You Smoked in the Last Year: No When Did the Patient Quit Smoking/Using Tobacco: 2013 - Immunization History Most Recent Influenza Vaccination: DECLINES Most Recent Tetanus Shot: unsure, will offer Most Recent Pneumonia Vaccination: never Review of Systems All Other Systems Reviewed And Are Negative: Yes Constitutional: Positive: Fever, Chills ENT: Positive: Nasal Discharge, Sinus Pain/Tenderness Cardiovascular: Positive: Chest Pain Is Patient Immunocompromised?: No Physical Exam Triage Information Reviewed: Yes Appearance: Well-Appearing, Pain Distress - mild, Obese Vital Signs: Initial Vital Signs Temp 98.0 F 01/22/19 16:37 Pulse 85 01/22/19 16:37 Resp 18 01/22/19 16:37 BP 131/76 01/22/19 16:37 Pulse Ox 98 01/22/19 16:37 Vital Signs Reviewed: Yes Eyes: Positive: Conjunctiva Inflamed ENT: Positive: Pharynx normal, Nasal congestion, TMs normal Neck exam: Normal Respiratory Exam: Normal Cardiovascular: Positive: RRR, Murmur:Sys:Grade _?_/ - 2/6 Musculoskeletal Exam: Normal Neurological Exam: Normal Psychological: Positive: Other: - Anxious Skin Exam: Normal Diagnostics - EKG Cardiac Rate: NL Cardiac Rhythm: Sinus: Normal Ectopy: None ST Segment: Normal Summary of EKG Findings: Normal EKG done with chest pain. - Differential Diagnoses - Chest Pain Differential Diagnosis/HQI/PQRI: Acute TN, ACS, Chest Wall - Clinical Impression Provider Diagnosis: Acute frontal sinusitis Discharge - Sign-Out/Discharge Documenting (check all that apply): Patient Departure All imaging exams completed and their final reports reviewed: No Studies - Discharge Plan Condition: Stable Disposition: HOME Prescriptions: Amoxicillin PO (*) [Amoxicillin 875 MG (*)] 875 mg PO BID #20 tab Montelukast Sodium TAB* [Singulair 10 MG TAB*] 10 mg PO BEDTIME #30 tab Patient Education Materials: Anxiety (ED), Allergic Rhinitis (ED), Sinusitis ( ED), Amoxicillin (By mouth), Montelukast (By mouth) Referrals: Carmencita Petit MD [Primary Care Provider] - Additional Instructions: NEILMED SINUS RINSE: CHECK OUT AT [employer] Saline nasal wash helps with mucous, allergies and congestion. It can be used up to twice a day or only as needed. Use lukewarm tap water. It does not have to be sterilized or distilled water. Do 1/3 on each side and snort out of both nostrils. Repeat the process with 1/6 of the bottle on each side with snorting in between to finish the solution in the bottle - Billing Disposition and Condition Condition: STABLE Disposition: Home
== END 2019-01-22 17:20 | disposition home or self-care (01) ==
LOC: UCEAST 16:30
DX: J01.10 Acute frontal sinusitis, unspecified (principal); R07.2 Precordial pain; J45.909 Unspecified asthma, uncomplicated; Z88.1 Allergy status to other antibiotic agents; Z88.5 Allergy status to narcotic agent; Z88.2 Allergy status to sulfonamides; Z87.891 Personal history of nicotine dependence
CPT/HCPCS: 99212; G0463

== ENCOUNTER 2019-04-08 12:11 | Emergency (ER) | payer BC ==
--- OUTSIDE RECORDS SUMMARY | 2019-04-08 12:17 | XMS REPORT | Continuity of Care Document ---
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 Tablets by mouth once weekly on Folic Acid take one 90tabs Rodriguez Schaffer, 03/30/2019 1mg capsule/tablet M.D. Tablets daily by mouth Meloxicam take one tab twice 30tabs M06.4 Rodriguez Schaffer, 11/03/2018 7.5mg daily as needed M.D. Tablets for pain, avoid other nsaids Pulmicort 9 Has Not Needed ) 180ml Carmencita Petit, 10/10/2018 0.25mg/2ML 1 unit nebulizer M.D. Suspension twice a day Albuterol Sulfate four times a day 90ml J45.901 Carmencita Petit, 09/26/2018 as needed M.D. (2.5mg/3ML) 0.083% Nebulizer Onetouch Ultra Blue test twice a day 100units R73.01 Carmencita Petit, 01/26 and as needed M.D. Strips Ventolin HFA 1 unit puff every 8gm J45.20 Marie Khan, 01/12/2018 6 hours as needed 108(90Base) mcg/Act Aerosol Wrist Splint use nightly to 2units G56.03 Rodriguez Schaffer[facility] in the right and left hand Sertraline HCL take 1 tablet by 90tabs F32.9 Carmencita Petit, 01/15/2017 100mg mouth once daily M.D. Tablets History Medications Doxycycline 1 tablet by [...] puff inhaled daily 60units J45.901 Carmencita 10/03/2018 Leticia Petit M.D. 12/28/2018 200-25mcg/Inh Aerosol Prednisone 2 1/2 tab [...] 28units J45.901 Carmencita 09/26/2018 - hours , raulsh and Katie Petit 10/03/2018 250mcg/Blist Aerosol spit an hour later Ciprofloxacin HCL 1 by mouth twice a 6tabs N39.0 Bharti Kailey, 08/19/2018 - day for 3 days 08/23/2018 500mg Tablets Cleocin one applicatorful 40gm N76.0 Bharti Bonner, 08/19/2018 - 2% Cream per vagina at bedime 08/23/2018 x 3 days Plaquenil Take 2 by mouth 60tabs Rodriguez Schaffer, 07/04/2018 - 200mg daily ongoing M.D. 08/19/2018 Tablets Turmeric Curcumin Take one 90caps Rodriguez Schaffer, 04/28/2018 - capsule/tablet daily M.D. 09/26/2018 5-1000mg Capsules by mouth [place] & [place]6 take one 90caps Rodriguez Schaffer, 04/28/2018 - [...] 1 by mouth every day 90tabs R73.01 Carmencita 01/26/2018 - 500mg (not taking) Katie Petit 05/30/2018 Tablets Slow Fe 1 by mouth every day 30tabs Rodriguez Schaffer, 01/18/2018 - 142(45Fe) mg M.DZachary 05/30/2018 Tablets ER Amoxicillin one tab twice a day 14caps Zunilda 12/27/2017 - 500mg Rowe, [employer] 01/11/2018 Capsules Plaquenil Take 2 by mouth 60tabs M06.4 Rodriguez Schaffer, 12/14/2017 - 200mg daily ongoing M.DZachary 04/20/2018 Tablets B12 Fast Dissolve sublingual daily 90tabs Rodriguez Schaffer, 12/04/2017 - M.D. 04/04/2018 5000mcg Tablets Dispers [...] CPT Code Status Date Vaccine Lot # [id number] Refused 10/06/2017 Influenza Virus Vaccine, Quadrivalent, Split, Preservative Free Vital Signs Date Vital Result Comment 03/30/2019 9:30am Height 63 inches 5'3" Weight 269.00 lb Heart Rate 95 /min BP Systolic 146 mmHg BP Diastolic 80 mmHg Body Temperature 97.9 F O2 % BldC Oximetry 98 % BMI (Body Mass Index) 47.6 kg/m2 12/28/2018 11:05am Height 63 inches 5'3" Weight [...] Test Result H/L Range Note Laboratory test 12/28/2018 [facility] C Reactive 15.67 mg/L High <8.[address] [place] [address] [phone] Erythrocyte Sed Rate 32 mm/Hr High 0-19 Laboratory test 10/31/2018 [facility] Immunoglobulin E 6.3 kU/L <=[address] (Ige) [place] [address] [phone] Anca AB Ser If 10/31/2018 [facility] C-Anca [place] [address] [phone] P-Anca Negative Negative 2 Connective Tissue 10/31/2018 [facility] Anti-Nuclear Antibody 0.[address] [place] [address] [phone] Cyclic Citrullinated Peptide <15.6 U 4 Interpretation See Comment 5 Laboratory test 10/31/2018 [facility] C Reactive 11.13 mg/L High <8.[address] [place] [address] [phone] Erythrocyte Sed Rate 44 mm/Hr High 0-20 6 Ua Routine 08/23/2018 [facility] Ua Specific [place] 1.010 Ua PH 7 Ua Color medium yellow Ua Appera cloudy Ua WBC + Ua Protein - Ua Glucose norm Ua Ketones - Ua Bilirubin - Ua Urobilinogen norm Ua Nitrite - Ua Occult Blood 250 Laboratory test 08/23/2018 [facility] Test neg finding Urine Laboratory test 08/23/2018 [facility] Gardnerella/Yeas SEE RESULT 7, [address] t: Vag[place] [address] [phone] Laboratory test 08/23/2018 [facility] Amylase 17 U/L Low 29- [address] [place] [address] [phone] Lipase < 10 U/L Low 11.0-82.0 Hemoglobin A1c (Glyco HGB) 5.4 % N 4.0-5.6 9 Comp Metabolic Panel 08/23/2018 [facility] Sodium 139 mmol/L N 135-[address] [place] [address] [phone] Potassium 4.4 mmol/L N 3.5-5.0 Chloride 104 [...] Egfr 140.0 >60 10 Laboratory test 08/23/2018 [facility] Erythrocyte Sed 32 mm/Hr High 0-[address] [place] [address] [phone] CBC Auto Diff 08/23/2018 [facility] White Blood 9.0 N 3.5- 10.[address] Count 10^3/[place] [address] [phone] Red Blood Count 4.93 10^6/uL N 4.00-5.40 [...] Cells % 0 Laboratory test 08/23/2018 [facility] C Reactive 22.07 mg/L High <8.[address] [place] [address] [phone] Urine Culture And 08/19/2018 [facility] Urine SEE RESULT 11 , [address] [place] [address] [phone] Ua Routine 08/19/2018 [facility] Ua Specific 1.030 [place] Ua PH 5 Ua Color yellow Ua Appera clear Ua WBC trace Ua Protein neg Ua Glucose norm Ua Ketones neg Ua Bilirubin neg Ua Urobilinogen norm Ua Nitrite neg Ua Occult Blood neg Laboratory test 05/26/2018 [facility] Erythrocyte Sed 29 mm/Hr High 0-14 13, [address] [place] [address] [phone] C Reactive Protein 10.86 mg/L High <8.01 15 Comp Metabolic Panel 05/26/2018 [facility] Sodium 139 mmol/L N 135-[address] [place] [address] [phone] Potassium 4.1 mmol/L N 3.5-5.0 Chloride 105 [...] Egfr Non- 114.1 >60 Egfr 138.0 >60 16 CBC Auto Diff 05/26/2018 [facility] White Blood 8.6 10^3/uL N 3.5-10.[address] [place] [address] [phone] Red Blood Count 4.74 10^6/uL N 4.00-5.40 Hemoglobin 11.5 g/dL Low 12.0-16.0 Hematocrit 35 % N 35-47 Mean Corpuscular Volume 74 fL Low 80-97 17 Mean Corpuscular Hemoglobin 24 pg Low 27-31 [...] 0-2 Nucleated Red Blood Cells % 0 Cortisol Free 04/14/2018 [facility] Urine Free 13 mcg/24h 3.5 -45 18 24HR Urine [address] [place] [address] [phone] Urine Collection Duration 24 h Urine Total Volume 1450 mL 19 Comp Metabolic Panel 04/08/2018 [facility] Sodium 138 mmol/L N 135-[address] [place] [address] [phone] Potassium 4.5 mmol/L N 3.5-5.0 Chloride 102 [...] 117.2 >60 20 CBC Auto Diff 04/08/2018 [facility] White Blood 7.6 10^3/uL N 3.5-10.[address] [place] [address] [phone] Red Blood Count 4.79 10^6/uL N 4.00-5.40 [...] Blood Cells % 0 Laboratory test 04/08/2018 [facility] Erythrocyte Sed 39 mm/Hr High 0-14 [address] [place] [address] [phone] C Reactive Protein 15.29 mg/L High <8.01 22 Heavy Metal Blool 04/08/2018 [facility] Arsenic <1 ng/mL 0- [address] [place] [address] [phone] Lead <1.0 g/dL 0.0-4.9 24 Mercury <1 ng/mL 0-9 25 Cadmium <0.2 ng/mL 0.0-4.[address] [place] [address] [facility] Guardian First Name ANANYA Bhat Guardian Last Name PRESTON GALLEGOS Venous/Capillary Heavy Metals Venous Patient Race WHITE Submitting Laboratory Phone [phone] Laboratory test 04/08/2018 [facility] Methylmalonic 0.10 <= 0.40 [address] Acid Mma nmol/[place] [address] [phone] Basic Metabolic 04/08/2018 [facility] Sodium 139 mmol/L N 135- [address] [place] [address] [phone] Potassium 4.4 mmol/L N 3.5-5.0 Chloride 103 mmol/L N 101-111 Co2 Carbon Dioxide 27 mmol/L N 22-32 Anion Gap 9 mmol/L N 2-11 Glucose 111 mg/dL High 70-100 Blood Urea Nitrogen 8 mg/dL N 6-24 Creatinine 0.69 mg/dL N 0.51-0.95 BUN/Creatinine Ratio 11.6 N 8-20 Calcium 9.0 mg/dL N 8.6-10.3 Egfr Non- 95.2 >60 Egfr 115.2 >60 30 HIV 1/2 AB 04/08/2018 [facility] HIV 1 2 Nonreactive Nonreactive 31 Evaluation [address] [facility] [place] [address] [phone] Laboratory 04/08/2018 [facility] Vitamin B12 884 pg/mL N 180- 914 32 test finding [address] [place] [address] [phone] Lyme Disease Serology Negative Negative 33 Laboratory test 04/05/2018 [facility] Hemoglobin A1c 5.7 5-7 finding Laboratory test 01/13/2018 [facility] Erythrocyte Sed 38 mm/Hr High 0-[address] [place] [address] [phone] CRP High Sensitivity 20.86 mg/L 35 C Reactive Protein 19.71 mg/L High < 5.00 36 CBC Auto Diff 01/13/2018 [facility] White Blood 7.8 10^3/uL N 3.5-10.8 [address] [place] [address] [phone] Red Blood Count 4.55 10^6/uL N 4.0-5.4 [...] % 0 Comp Metabolic Panel 01/13/2018 [facility] Sodium 138 mmol/L Low 139-145 [address] [place] [address] [phone] Potassium 4.4 mmol/L N 3.5-5.0 Chloride 104 [...] Egfr 133.6 >60 38 Urinalysis Profile 12/14/2017 [facility] Urine Color Yellow [address] [place] [address] [phone] Urine Appearance Cloudy Urine Specific [place] 1.020 N 1.010-1.030 Urine pH 6.0 N [...] Abnormal Absent Urine Culture And 12/14/2017 [facility] Urine Culture SEE RESULT [address] [place] [place] [address] [phone] Laboratory test 11/25/2017 [facility] Thyroperoxidase AB 0.44 IU /mL N <9 41, finding [address] 42 [place], [place] [phone] Vitamin B12 And 11/25/2017 [facility] Vitamin B12 204 pg/mL N 180 43 Folate Serum [address] -91 [place] [address] [phone] Folic Acid (Folate) 10.13 ng/mL >3.99 44 Tick-Borne Panel 11/25/2017 [facility] Babesia Negative Negative PCR Blood [address] microti PCR [place], [place] [address] [phone] Babesia ducani Negative Negative Babesia divergens/Mo-1 Negative Negative 45 Anaplasma phagocytophilum Negative Negative Ehrlichia chaffeensis Negative Negative Ehrlichia ewingii/canis Negative Negative Ehrlichia muris-like Negative Negative 46 B. miyamotoi PCR, B Negative Negative 47 Laboratory test 11/25/2017 [facility] Cyclic Citrullinated < 15.6 U [address] [place] [address] [phone] Aso (Antistreptolysin O) Titer 200 IU/mL IU/mL Abnormal <200 Iu/mL 49 Hla B27 11/25/2017 [facility] Hla B27 Negative [address] [place] [address] [phone] Hla B27 Interp See Comment 51 Celiac Hla 11/25/2017 [facility] Hla-Dqa1 SEE BELOW [address] [place], [place] [address] [phone] Hla-DQB1 SEE BELOW 53 Celiac Gene Pairs Present? Yes Celiac Gene Interpretation See Comment 54 Celiac Panel 11/25/2017 [facility] Immunoglobulin A 266 mg/dL 61 - [address] [place] [address] [phone] Tissue Transglutaminase IgA Ab <1.2 U/mL 55 Celiac Interpretation See Comment 56 Protein 11/25/2017 [facility] Total 7.2 g/dL 6.3 - Electrophoresis [address] [facility] Protein(Pep) 7.9 [place] [address] [phone] Albumin 3.3 g/dL Abnormal 3.4-4.7 Alpha-1 Globulin 0.3 g/dL 0.1-0.3 Alpha-2 Globulin 1.0 g/dL 0.6-1.0 Beta Globulin 1.2 g/dL 0.7-1.2 Gamma Globulin 1.5 g/dL 0.6-1.6 Albumin/Globulin Ratio 0.84 Impression See Comment 57 Laboratory test 11/25/2017 [facility] Angiotensin 19 U/L 8 - 53 58 finding [facility] [place] [address] [phone] C Reactive Protein 12.87 mg/L High < 5.00 59 Erythrocyte Sed Rate 44 mm/Hr High 0-14 60 Anca AB Ser If 11/25/2017 [facility] C-Anca Negative Negative [address] [place] [address] [phone] P-Anca Negative Negative 61 Laboratory test 10/13/2017 [facility] Anti Nuclear 0.5 U [address] [place] [address] [phone] Erythrocyte Sed Rate 41 mm/Hr High 0-14 Anti Double Stranded Dna AB <12.3 IU/mL 63 Rheumatoid Factor <15 IU/mL <15 64 C Reactive Protein 17.85 mg/L High < 5.00 65 Creatine Kinase(CK) 56 U/L N 10-223 Lyme Disease Serology Negative Negative 66 Ssa/SSB Abs Igg 10/13/2017 [facility] SS-A/Ro Antibody <0.2 U [address] [place] [address] [phone] SS-B/La Antibody <0.2 U 68 Urinalysis Profile 10/05/2017 [facility] Urine Color Yellow [address] [place] [address] [phone] Urine Appearance Cloudy Urine Specific [place] > 1.060 High 1.010-1.030 Urine pH 5.0 [...] Abnormal Absent Urine Culture And 10/05/2017 [facility] Urine Culture SEE RESULT [address] [place] [place] [address] [phone] Laboratory test 10/05/2017 [facility] Troponin-I 0.00 ng/mL < 0.[address] (TnI) [place] [address] [phone] Lyme Disease Serology Negative Negative 70 Inr/Protime 10/05/2017 [facility] Inr 0.90 N 0.77-1.[address] [place] [address] [phone] Laboratory test 10/05/2017 [facility] Partial 34.5 seconds N 26.0-36.[address] [place] [address] [phone] Comp Metabolic 10/05/2017 [facility] Sodium 133 mmol/L N 133- [address] [place] [address] [phone] Potassium 3.8 mmol/L N 3.5-5.0 Chloride 102 [...] Egfr Non- 103.9 >60 Egfr 133.6 >60 71 Laboratory test 10/05/2017 [facility] Creatine 64 U/L N 10- [address] Kinase(CK) [place] [address] [phone] Troponin-I (TnI) 0.01 ng/mL <0.04 HCG < 0.60 mIU/mL 72 CBC Auto Diff 10/05/2017 [facility] White Blood 10.1 10^3/uL N 3.5-10.[address] [place] [address] [phone] Red Blood Count 4.92 10^6/uL N 4.0-5.4 [...] Red Blood Cells % 0 Laboratory test 10/05/2017 [facility] HCG < 0.60 mIU/ mL [address] [place] [address] [phone] Lactic Acid 1.1 mmol/L N 0.5-2.0 74 CKMB 10/05/2017 [facility] CKMB ng/mL 1.3 ng/mL N 0.6-6.[address] [place] [address] [phone] Laboratory test 10/05/2017 [facility] Creatine 57 U/L N 10- [address] Kinase(CK) [place] [address] [phone] C Reactive Protein 18.03 mg/L High < 5.00 75 Troponin-I (TnI) 0.00 ng/mL <0.04 Comp Metabolic Panel 10/05/2017 [facility] Sodium 137 mmol/L N 133-[address] [place] [address] [phone] Potassium 4.2 mmol/L N 3.5-5.0 Chloride 105 [...] Egfr Non- 118.7 >60 Egfr 152.7 >60 76 CBC Auto Diff 10/05/2017 [facility] White Blood 10.2 10^3/uL N 3.5-10.[address] [place] [address] [phone] Red Blood Count 5.03 10^6/uL N 4.0-5.4 Hemoglobin 12.1 g/dL N 12.0-16.0 Hematocrit 37 % N 35-47 Mean Corpuscular Volume 73 fL Low 80-97 77 Mean Corpuscular Hemoglobin 24 pg Low 27-31 [...] Red Blood Cells % 0 Laboratory test 02/01/2017 [facility] Clotest SEE RESULT [address] [address] [phone] Laboratory test 02/01/2017 [facility] Surgical Pathology SEE RESULT [address] [place] [address] [phone] Laboratory test 01/19/2017 [facility] TSH (Thyroid Stim 2.41 N 0.34- [address] Horm) mcIU/mL 5.60 [place] [address] [phone] Lipid Profile 01/19/2017 [facility] Triglycerides 143 mg/dL N 81 (Trig/Chol/HDL) [address] [place] [address] [phone] Cholesterol 175 mg/dL N 82 HDL Cholesterol 35.5 mg/dL N 83 LDL Cholesterol 111 mg/dL N 84 Comp Metabolic Panel 01/19/2017 [facility] Sodium 136 mmol/L N 133-[address] [place] [address] [phone] Potassium 4.1 mmol/L N 3.5-5.0 Chloride 104 [...] 104.4 N >60 Egfr 134.3 N >60 85 Urine Culture And 10/19/2016 [facility] Urine Culture SEE RESULT [address] BELOW [place] [address] [phone] 1 Test Performed by: [facility] [place] [address] 2 Negative for cANCA and pANCA patterns by immunofluorescence. ADDITIONAL INFORMATION This test was developed and its performance characteristics determined by [facility] in a manner consistent with CLIA requirements. This test has not been cleared or approved by the U.S. Food and Drug Administration. Test Performed by: [facility] [place] [address] 3 REFERENCE VALUE <=1.0 (Negative) 4 REFERENCE VALUE <20.0 (Negative) 5 Tests for antibodies to dsDNA and SADAF antigens are not performed automatically unless the BOGDAN result is > or= 3.0 U. Studies performed at [facility] indicate that positive BOGDAN results <3.0 U are rarely accompanied by positive second order tests. Test Performed by: [facility] [place] [address] 6 Test Performed by: [facility] [address] [place] [address] Berto Paul M.D. Director of Laboratory 7 [id number] SEE RESULT BELOW Name: ANANYA FELICIANO : [address]: Carmencita Petit MD Acct: [id number] Unit: [id number] AGE: 38 Location: [facility] Re08/23/18 SEX: F Status: REG REF SPEC: [id number] RAVEN: 08/23/18-[address]: Carmencita Petit MD REQ: [id number] RECD: 08/23/18-1320 STATUS: COMP _ SOURCE: VAGINAL SPDESC: ORDERED: Marin,Yeast DNA COMMENTS: [id number] QUERIES: Would you like to order Trichomonas [...] . END OF REPORT DEPARTMENT OF PATHOLOGY, [address] [place] [address] Berto Paul M.D. Director [facility] # [id number] 9 Therapeutic target for the treatment of diabetes mellitus patients is <7% HBA1C, and in selective patients <6.0%. Please refer to [place] [employer] diabetic care guidelines for further [...] 5 Kidney failure <15 (or dialysis) 11 [id number] 12 SEE RESULT BELOW Name: ANANYA FELICIANO : [address]: Bharti Bonner MD Acct: [id number] Unit: [id number] AGE: 38 Location: [facility] Re08/19/18 SEX: F Status: REG REF SPEC: [id number] RAVEN: 08/19/18-[address] [facility] [address]: Bharti Bonner MD REQ: [id number] RECD: 08/19/18 STATUS: COMP _ SOURCE: URINE SPDESC: ORDERED: Urine Culture COMMENTS: [id number] Urine Source: Clean Catch Procedure Result Reported Site Urine Culture Final 08/20/18- 1604 ML No Growth (<1,000 CFU/mL) * ML - Main Lab . END OF REPORT DEPARTMENT OF PATHOLOGY, [address] [place] [address] Berto Paul M.D. Director [facility] # [id number] 13 Please check labs 2 days before follow up 14 Please check labs 2 days before follow up 15 Please check labs 2 days before follow up 16 Because ethnic data is not always readily [...] 15-29 5 Kidney failure <15 (or dialysis) 17 Consistent with Previous Results Reported on 10/12/17 18 [id number] ADDITIONAL INFORMATION This test was developed and its performance characteristics determined by [facility] in a manner consistent with CLIA requirements. This test has not been cleared or approved by the U.S. Food and Drug Administration. Test Performed by: [facility] [address] [place] [address] 20 Because ethnic data is not always [...] developed and its performance characteristics determined by [facility] in a manner consistent with CLIA requirements. This test has not been cleared or approved by the U.S. Food and Drug Administration. 24 ADDITIONAL INFORMATION Testing performed by Inductively Coupled Plasma-Mass Spectrometry (ICP-MS). This test was developed and its performance characteristics determined by [facility] in a manner consistent with CLIA requirements. This test has not been cleared or approved by the U.S. Food and Drug Administration. 25 ADDITIONAL INFORMATION This test was developed and its performance characteristics determined by [facility] in a manner consistent with CLIA requirements. This test has not been cleared or approved by the U.S. Food and Drug Administration. 26 ADDITIONAL INFORMATION This test was developed and its performance characteristics determined by [facility] in a manner consistent with CLIA requirements. This test has not been cleared or approved by the U.S. Food and Drug Administration. [address] 28 Test Performed by: [facility] [address] [place] [address] 29 ADDITIONAL INFORMATION This test was developed and its performance characteristics determined by [facility] in a manner consistent with CLIA requirements. This test has not been cleared or approved by the U.S. Food and Drug Administration. Test Performed by: [facility] [address] [place] [address] 30 Because ethnic data is not always [...] tested in 2-4 weeks. Test Performed by: [facility] [address] [place] [address] 34 Please check 2 days before follow [...] of blood. 40 SEE RESULT BELOW Name: PRESTON GALLEGOSANANYA Bhat : [address]: Rodriguez Schaffer MD Acct: [id number] Unit: [id number] AGE: 37 Location: [facility] Re12/14/17 SEX: F Status: REG REF SPEC: [id number] RAVEN: 12/14/[address]: Rodriguez Schaffer MD REQ: [id number] RECD: 12/14/17 STATUS: VENUS SMITH DR: Carmencita Petit MD _ SOURCE: URINE SPDESC: ORDERED: Urine Culture Procedure Result Reported Site Urine Culture Final 12/15/17- 1425 ML Organism 1 STREP GROUP B Leivasy Count >100,000 (Many) CFU/ML Susceptibility testing of penicillins and other B-lactams approved by FDA for treatment of Streptococcus pyogenes (Group A Strep) and Streptococcus agalactiae (Group B Strep) is not necessary for clinical purposes and need not be done routinely, since as with vancomycin, resistant strains have not been recognized. (CLSI D126-D77;p.66) Positive isolates will be saved for one week. Please call the Microbiology Laboratory if further susceptibility testing is needed. * ML - Main Lab . END OF REPORT DEPARTMENT OF PATHOLOGY, [address] [place] [address] Berto Paul M.D. Director [facility] # [id number] 41 Please check labs this week 42 Please check labs this week 43 Normal Range 180 to 914 Indeterminate Range 145 to 180 Deficient Range <145 44 Please check labs this week 45 ADDITIONAL INFORMATION This test was developed and its performance characteristics determined by [facility] in a manner consistent with CLIA requirements. This test has not been cleared or approved by the U.S. Food and Drug Administration. 46 ADDITIONAL INFORMATION This test was developed and its performance characteristics determined by [facility] in a manner consistent with CLIA requirements. This test has not been cleared or approved by the U.S. Food and Drug Administration. 47 ADDITIONAL INFORMATION This test was developed and its performance characteristics determined by [facility] in a manner consistent with CLIA requirements. This test has not been cleared or approved by the U.S. Food and Drug Administration. Test Performed by: [facility] - [address] [address] 48 REFERENCE VALUE <20.0 (Negative) Test Performed by: [address] [address] 49 Normal values may vary with age, [...] INFORMATION Method: Flow Cytometry Performing Laboratory CLIA# [id number] Test Performed by: [facility] - [address] [address] 52 RESULT: 02:01,05:01 REFERENCE VALUE Not Applicable [...] medium resolution molecular values. Performing Laboratory CLIA# [id number] Test Performed by: [address] [address] 55 REFERENCE VALUE <4.0 (Negative) Test Performed by: [address] [address] 56 Negative serology. Celiac disease unlikely. However, approximately 10% of patients with celiac disease are seronegative. Also, patients who are already adhering to a gluten-free diet may be seronegative. If celiac disease is highly clinically suspected, consider HLA-DQ typing. Test Performed by: [address] [address] 57 RESULT: No apparent monoclonal protein on serum electrophoresis. Test Performed by: [address] [address] 58 Test Performed by: [address] [address] 59 Acute inflammation: >10.00 60 Please check labs this week 61 Negative for cANCA and pANCA patterns by immunofluorescence. ADDITIONAL INFORMATION This test was developed and its performance characteristics determined by [facility] in a manner consistent with CLIA requirements. This test has not been cleared or approved by the U.S. Food and Drug Administration. Test Performed by: [address] [address] 62 REFERENCE VALUE <=1.0 (Negative) Test Performed by: [facility] [address] [place] [address] 63 REFERENCE VALUE <30.0 (Negative) Test Performed by: [facility] [address] [place] [address] 64 Test Performed by: [address] [address] 65 Acute inflammation: >10.00 66 Serologic response to B. burgdorferi infection is not detected, but cannot rule out early infection during which low or undetectable antibody levels to B. burgdorferi may be present. If clinically indicated, a new serum specimen should be submitted in 7-14 days. Test Performed by: [facility] [address] [place] [address] 67 REFERENCE VALUE <1.0 (Negative) 68 REFERENCE VALUE <1.0 (Negative) Test Performed by: [facility] [address] [place] [address] 69 SEE RESULT BELOW Name: ANANYA FELICIANO : [address]: Ulises Bates MD Acct: [id number] Unit: [id number] AGE: 37 Location: ED Re10/05/17 SEX: F Status: DEP ER SPEC: [id number] RAVEN: 10/05/17-[address]: Ulises Bates MD REQ: [id number] RECD: 10/05/17 STATUS: VENUS SMITH DR: Carmencita Petit MD _ SOURCE: URINE SPDESC: ORDERED: Urine Culture Procedure Result Reported Site Urine Culture Final 10/07/17- 09 ML No growth of clinically significant organisms * ML - MAIN LAB ([facility]) . END OF REPORT * ML=Testing performed at Main Lab DEPARTMENT OF PATHOLOGY, [address] [place] [address] Berto Paul M.D. Director [facility] # [id number] 70 Serologic response to B. burgdorferi infection is not detected, but cannot rule out early infection during which low or undetectable antibody levels to B. burgdorferi may be present. If clinically indicated, a new serum specimen should be submitted in 7-14 days. Test Performed by: [facility] [address] [place] [address] 71 Because ethnic data is not always [...] 5 Kidney failure <15 (or dialysis) 72 <5.0 Negative 5.0 - 25.0 Indeterminate (Repeat testing recommended after 72 hours) >25.0 Positive Perimenopausal women can display HCG levels of up to 20 mIU/mL 73 <5.0 Negative 5.0 - 25.0 Indeterminate (Repeat testing recommended after 72 hours) >25.0 Positive Perimenopausal women can display HCG levels of up to 20 mIU/mL 74 [facility] Severe Sepsis and Septic Shock Management Bundle Measure requires all lactic acids initially measuring >2.0 mmol/L be repeated. 75 Acute inflammation: >10.00 76 Because ethnic data is not always readily [...] 15-29 5 Kidney failure <15 (or dialysis) 77 Consistent with Previous Results Reported on 10/05/17. 78 SEE RESULT BELOW Name: ANANYA FELICIANO : [address]: Aurelio Paz MD Acct: [id number] Unit: [id number] AGE: 36 Location: ENDO Re02/01/17 SEX: F Status: REG REF SPEC: [id number] RAVEN: 02/01/17-[address] [facility] [address]: Aurelio Paz MD REQ: [id number] RECD: 02/01/17-1311 STATUS: VENUS SMITH DR: Elena Willis MISSILE INSPECTOR PREFLIGHT _ SOURCE: GAS ANTRUM SPDESC: ORDERED: Clotest Procedure Result Reported Site Clotest Final 02/02/17- 0757 ML Clotest Negative * ML - MAIN LAB ([facility]) . END OF REPORT * ML=Testing performed at Main Lab DEPARTMENT OF PATHOLOGY, [address] [place] [address] Berto Paul M.D. Director [facility] # [id number] 79 SEE RESULT BELOW Name: ANANYA FELICIANO : [address]: Aurelio Paz MD Acct: [id number] Unit: [id number] AGE: 36 Location: ENDO Re02/01/17 SEX: F Status: DEP REF SPEC: [id number] RAVEN: 02/01/17- SUBM DR: Aurelio Paz MD REQ: [id number] RECD: 02/01/175 STATUS: CHIDI SMITH DR: Elena Willis MISSILE INSPECTOR PREFLIGHT _ ORDERED: LEVEL 4 FINAL DIAGNOSIS Duodenum, [...] performed at Main Lab DEPARTMENT OF PATHOLOGY, [address] [place] [address] Berto Paul M.D. Director [facility] # [id number] 80 FASTING 10 HOUR 81 Desirable <150 Borderline high 150-199 High 200-499 Very High >500 82 Desirable <200 Borderline high 200-239 High >239 83 Low <40 Desirable: 40-60 High: >60 84 Desirable: <100 mg/dL Near Optimal: 100-129 mg/dL Borderline High: 130-159 mg/dL High: 160-189 mg/dL Very High: >189 mg/dL 85 Because ethnic data is not always readily [...] 15-29 5 Kidney failure <15 (or dialysis) 86 SEE RESULT BELOW Name: ANANYA FELICIANO : [address]: Carmencita Petit MD Acct: [id number] Unit: [id number] AGE: 36 Location: [facility] Re10/19/16 SEX: F Status: REG REF SPEC: [id number] RAVEN: 10/19/16-[address] [facility] [address]: Carmencita Petit MD REQ: [id number] RECD: 10/19/16 STATUS: COMP _ SOURCE: URINE SPDES: ORDERED: Urine Culture COMMENTS: [id number] Urine Source: Random Procedure Result Reported Site Urine Culture Final 10/21/16833 ML No growth of clinically significant organisms * ML - MAIN LAB ([facility]) . END OF REPORT * ML=Testing performed at Main Lab DEPARTMENT OF PATHOLOGY, [address] [place] [address] Berto Paul M.D. Director [facility] # [id number] Procedures Date Code Description Status 10/07/2018 92507 Nerve Conduction 07-08 Studies Completed 10/07/2018 28478 Needle Electromyography Each Extremity W/Related Completed Paraspinal Areas 09/26/2018 28536 Inhalation [place] For Acute Airway Obstruction Completed W/Nebulizer/Inhaler 05/04/2018 10861 Nerve Conduction 07-08 Studies Completed 05/04/2018 32009 Needle Electromyography Complete, Five Or More Muscles Completed Studied 05/04/2018 72016 Needle Electromyography Each Extremity W/Related Completed Paraspinal Areas 01/27/2018 71185 Diffusing Capacity Completed 01/27/2018 26872 Plethysmography Determination Lung Volumes & Per Airway Completed Resist 01/27/2018 32116 Pulmonary Function><Bronchodil Completed 01/19/2018 44055 Sleep Study Unattended,HRT Rate,Oxygen Sat,Resp Completed Effort/Airflow 10/19/2017 01703 Stress Test Completed 10/23/2016 17656 Anoscopy Completed 10/13/2016 53603432 Colonoscopy Completed Encounters Type Date Location Provider Dx Diagnosis Office Visit 12/28/2018 Rheumatology Rodriguez Schaffer M06.4 Inflammatory 11:00a [facility] Wilson polyarthropathy R79.82 Elevated C-reactive protein (CRP) R70.0 Elevated erythrocyte sedimentation rate M25.572 Pain in left ankle and joints of left foot Office Visit 11/03/2018 Rheumatology Rodriguez M06.4 Inflammatory 4:20p [facility] Schaffer M.D. 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 R79.82 Elevated C-reactive protein (CRP) R70.0 Elevated erythrocyte sedimentation rate R20.8 Other disturbances of skin sensation Office Visit 08/23/2018 9:50a [facility] Internal Carmencita R30.0 Dysuria Guera Petit M.D. R10.10 Upper abdominal pain, unspecified N92.6 Irregular menstruation, unspecified R73.01 Impaired fasting glucose N76.0 Acute vaginitis Office Visit 08/19/2018 [facility] Internal Bharti Bonner, N39.0 Urinary tract 11:00a Guera WEAVER infection, site not specified N76.0 Acute vaginitis K92.2 Gastrointestinal hemorrhage, unspecified Office Visit 05/30/2018 Rheumatology Rodriguez 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 polyarthropathy R70.0 Elevated erythrocyte sedimentation rate Z79.899 Other senior living (current) drug therapy D64.9 Anemia, unspecified M25.552 Pain in left hip Office Visit 04/05/2018 [facility] Internal Carmencita Z00.00 Encntr for 9:10a Guera Petit M.D. general adult medical exam w/o abnormal findings R20.2 Paresthesia of skin R73.01 Impaired fasting glucose Office Visit 02/12/2018 9:15a Pulmonology And Marie G47.33 Obstructive sleep [facility] Bill apnea (adult) [facility] (pediatric) J45.909 Unspecified asthma, uncomplicated E66.01 Morbid (severe) obesity due to excess calories Office Visit 01/26/2018 [facility] Internal Carmencita R73.01 Impaired 11:50a Guera Petit M.D. fasting glucose R51 Headache Office Visit 01/18/2018 Rheumatology Rodriguez M06.4 Inflammatory 9:40a [facility] Schaffer M.D. polyarthropathy R70.0 Elevated erythrocyte sedimentation rate Z79.899 Other senior living (current) drug therapy M54.5 Low back pain D64.9 Anemia, unspecified Office Visit 01/12/2018 8:30a Pulmonology And Sleep Marie Bill, R06.83 Snoring [facility] J45.20 Mild intermittent asthma, uncomplicated E66.01 Morbid (severe) obesity due to excess calories Z68.42 Body mass index (BMI) 45.0-49.9, adult Office Visit 12/14/2017 Rheumatology Rodriguez M06.4 Inflammatory 1:40p [facility] Schaffer M.D. polyarthropathy R70.0 Elevated erythrocyte sedimentation rate M54.5 Low back pain Z79.899 Other intermodal customer service (current) drug therapy R31.9 Hematuria, unspecified Office Visit 11/25/2017 9:00a Rheumatology Services Rodriguez Schaffer M79.1 Myalgia Of Stacey Wilson R70.0 Elevated erythrocyte sedimentation rate M54.5 Low back pain M06.4 Inflammatory polyarthropathy R20.8 Other disturbances of skin sensation G56.03 Carpal tunnel syndrome, bilateral upper limbs R06.83 Snoring Office Visit 10/13/2017 [facility] Internal Carmencita M25.50 Pain in 10:10a Guera Petit M.D. unspecified joint Office Visit 10/06/2017 [facility] Internal Carmencita R07.89 Other chest pain 8:30a Guera Petit M.D. M79.1 Myalgia Office Visit 01/15/2017 2:20p [facility] Internal Elena Willis, F32.9 Major depressive Medicine - N.P. disorder, single Ccmob episode, unspecified E78.00 Pure hypercholesterolemia, unspecified Office Visit 10/23/2016 8:45a Surgical Christian Barrios K64.8 Other hemorrhoids [facility] M.D. D50.0 Iron deficiency anemia secondary to blood loss (chronic) R10.30 Lower abdominal pain, unspecified Office Visit 10/19/2016 [facility] Internal Carmencita K64.8 Other 11:50a Guera Petit M.D. hemorrhoids D50.0 Iron deficiency anemia secondary to blood loss (chronic) R10.30 Lower abdominal pain, unspecified B34.9 Viral infection, unspecified Office Visit 10/14/2016 [facility] K92.2 Gastrointestinal 2:42p Assoc,pc Stallone, M.D. hemorrhage, Hospitalists unspecified F32.9 Major depressive disorder, single episode, unspecified Office Visit 10/12/2016 [facility] K92.2 Gastrointestinal 2:41p Assoc,michoacano Espinoza D.O. hemorrhage, [...] Ankle Unspec Site Plan of Treatment Future Appointment(s):04/18/2019 3:00 pm - Rodriguez Schaffer M.D. at Rheumatology [facility]04/03/2019 9:00 am - Marie Khan MD at Pulmonology And Sleep [facility]03/30/2019 - Rodriguez Schaffer M.D.M06.4 Inflammatory polyarthropathyFollow up:Follow up in 3 to 4 weeks or sooner if tqlxnwK86.82 Elevated C-reactive protein (CRP)R70.0 Elevated erythrocyte sedimentation rateZ79.899 Other senior living (current) drug therapyFollow up:Follow up in 3 to 4 weeks or sooner if needed
[2019-04-08 12:21] VITALS: BP 105/54
--- NOTE | 2019-04-08 13:07 | UC ---
Back Pain HPI - HPI Summary HPI Summary: 38 year old female followed bt DR. Schaffer for chronic inflammation/ pain, recently placed on methotrexate every wednesday, presents with neck/ shoulder pain. Patient states started 10 days ago with a "kink" in her neck which lasted ~ 1 day, then resolved, however became moderate to severe numbness, radiating pain that is in shoulder blade down to humerus. FEels "deep", no relief with massage, 800mg of motrin taken BID x several days. no hand/ wrist / elbow pain, no weakness/ numbness in hands, fingers, full strength. ? swelling in anterior shoulder. no prior injury/ surgery, no fall/ trauma. - History of Current Complaint Chief Complaint: UCUpperExtremity Stated Complaint: NECK AND SHOULDER PAIN Time Seen by Provider: 04/08/19 12:18 Hx Obtained From: Patient Hx Last Menstrual Period: [id number] ?: No Onset/Duration: Sudden Onset, Lasting Days, Still Present Timing: Constant Severity Initially: Moderate Severity Currently: Severe Pain Intensity: 8 Pain Scale Used: 0-10 Numeric Back Pain: Is Discrete @ - Left upper shoulder, humerus region Alleviating Factor(s): Rest, Position Associated Signs And Symptoms: Positive: Weakness, Numbness, Tingling. Negative : Swelling, Redness, Bruising, Fever, Abdominal Pain, Flank Pain, Bladder Incontinence, Bowel Incontinence, Weight Loss - Allergies/Home Medications Allergies/Adverse Reactions: Allergies Allergy/AdvReac Type Severity Reaction Status Date / Time cephalexin [From Keflex] Allergy Hives Verified 04/08/19 12:21 codeine Allergy Nausea And Verified 04/08/19 12:21 Vomiting Sulfa (Sulfonamide Allergy Hives Verified 04/08/19 12:21 Antibiotics) Home Medications: Home Medications Folic Acid TAB* [Folvite TAB*] 1 mg PO DAILY 04/08/19 [History Confirmed ] Methotrexate TAB* 10 mg PO WEEKLY 04/08/19 [History Confirmed 04/08/19] PMH/Surg Hx/FS Hx/Imm Hx Previously Healthy: No - chronic inflammation Endocrine History: Diabetes - on metformin - Surgical History Surgical History: Yes Surgery Procedure, Year, and Place: lap diamond, tubes in ears - Family History Known Family History: Positive: Unknown - Pt states she is "adopted", Non- Contributory - Social History Alcohol Use: Rare Substance Use Type: None Smoking Status (MU): Former Smoker Type: Cigarettes Length of Time of Smoking/Using Tobacco: 12 yrs Have You Smoked in the Last Year: No When Did the Patient Quit Smoking/Using Tobacco: 2013 - Immunization History Most Recent Influenza Vaccination: DECLINES Most Recent Tetanus Shot: unsure, will offer Most Recent Pneumonia Vaccination: never Review of Systems All Other Systems Reviewed And Are Negative: Yes Constitutional: Negative: Fever, Chills, Fatigue Gastrointestinal: Positive: Negative Genitourinary: Positive: Negative Motor: Positive: Weakness Musculoskeletal: Negative: Arthralgia, Decreased ROM, Edema Neurological: Positive: Weakness, Numbness - upper shoulder. Negative: Paresthesia Is Patient Immunocompromised?: No Physical Exam Triage Information Reviewed: Yes Appearance: Well-Appearing, No Pain Distress, Well-Nourished Vital Signs: Initial Vital Signs Temp 98.3 F 04/08/19 12:16 Pulse 82 04/08/19 12:16 Resp 18 04/08/19 12:16 BP 105/54 04/08/19 12:16 Pulse Ox 98 04/08/19 12:16 Vital Signs Reviewed: Yes Eyes: Positive: Conjunctiva Clear ENT: Positive: Hearing grossly normal Neck: Positive: Supple, No Lymphadenopathy, Tenderness @ - paraspinal around C4- 6 region, + spurling with extension and resistence, reproducing sytmpoms on L side.. Negative: Nuchal Rigidity, Enlarged Nodes @ Neurological: Positive: Alert, Other: - bilingual receptionist strength, wrist strength, elbow strength = b/l, able to cross thumb over palm, alternate finger touch with thumb b/l =, rad/ ulnar pulses 2+ b/l, SITLT b/l hands. + valdovinos mild, mild + infraspinatus, bear. neg speed, neers, belly, supraspinatus testing. Psychological Exam: Normal Skin Exam: Normal Skin: Negative: Rashes, Breakdown Back Pain Course/Dx - Course Course Of Treatment: radiograph: - Differential Dx/Diagnosis Provider Diagnosis: Radiculopathy of cervical region Discharge - Sign-Out/Discharge Documenting (check all that apply): Patient Departure All imaging exams completed and their final reports reviewed: Yes - Discharge Plan Condition: Stable Disposition: HOME Prescriptions: diazePAM [Valium] 5 mg PO BEDTIME #3 tablet MDD 1 predniSONE [Prednisone 20 MG TAB] 20 mg PO DAILY #21 tablet Patient Education Materials: Cervical Radiculopathy (ED) Referrals: Carmencita Petit MD [Primary Care Provider] - Rodriguez Schaffer MD [Medical Doctor] - Additional Instructions: - Stop taking motrin/ naproxen/ NSAIDs as listed to have reactions with methotrexate - Prednisone taper: Taper: 04/08-04/10- 50mg daily 04/11-04/13- 40mg 04/14-04/16- 30mg ( 1 1/2 tablet) 04/17-04/18- 20mg 04/19-04/20- 10mg (1/2 tablet) - Valium at night to help with sleeping, muscle spasms - Follow up with DR. Schaffer within 2-3 days if no improvement - Go to ER with worsening symptoms, weakness/ numbness in hands, increased neck pain, headache, or chest pain - Billing Disposition and Condition Condition: STABLE Disposition: Home - Attestation Statements Provider Attestation: I was available for consult. This patient was seen by the DIMITRIS. The patient was not presented to, seen by, or examined by me. -Yessy
== END 2019-04-08 14:22 | disposition home or self-care (01) ==
LOC: UCEAST 12:11
DX: M54.12 Radiculopathy, cervical region (principal); E11.9 Type 2 diabetes mellitus without complications; Z79.84 Long term (current) use of oral hypoglycemic drugs; Z87.891 Personal history of nicotine dependence; Z88.5 Allergy status to narcotic agent; Z88.2 Allergy status to sulfonamides
CPT/HCPCS: 72050; 99212; G0463

== ENCOUNTER 2019-04-10 16:10 | Emergency (ER) | payer BC ==
[2019-04-10 16:27] VITALS: BP 143/88
--- NOTE | 2019-04-10 16:55 | UC ---
Neck Pain HPI - HPI Summary HPI Summary: 38 yo female presents with left shoulder pain and arm weakness. She tells me that about a week ago she woke up with a neck spasm radiating into her left shoulder that continued throughout the week. She was seen here about 2 days ago and dx'd with a muscle spasm and given prednisone and vailum for her symptoms. She returns today with increased pain and now she has weakness in her left hand and arm. Her neck pain is better. She is right handed. She denies numbness, headache, dizziness, or injury. No SOB or chest pain - History of Current Complaint Chief Complaint: UCUpperExtremity Stated Complaint: SHOULDER AND ARM PAIN Time Seen by Provider: 04/10/19 16:54 Hx Obtained From: Patient Hx Last Menstrual Period: start of march Onset/Duration: Gradual Onset Severity: Severe Pain Intensity: 8 Pain Scale Used: 0-10 Numeric - Allergies/Home Medications Allergies/Adverse Reactions: Allergies Allergy/AdvReac Type Severity Reaction Status Date / Time cephalexin [From Keflex] Allergy Hives Verified 04/10/19 18:18 Sulfa (Sulfonamide Allergy Hives Verified 04/10/19 18:18 Antibiotics) codeine AdvReac Nausea And Verified 04/10/19 18:18 Vomiting Home Medications: Home Medications metFORMIN* [Glucophage 500 MG TAB *] 500 mg PO DAILY 04/10/19 [History Confirmed 04/10/19] predniSONE [Prednisone 20 MG TAB] 40 mg PO DAILY 04/10/19 [History Confirmed ] PMH/Surg Hx/FS Hx/Imm Hx - Additional Past Medical History Additional PMH: "inflammatory disease" - on methotrexate Endocrine History: Diabetes Psychological History: Anxiety - Surgical History Surgical History: Yes Surgery Procedure, Year, and Place: lap diamond, tubes in ears - Family History Known Family History: Positive: Unknown - Pt states she is "adopted", Non- Contributory - Social History Lives: With Family Alcohol Use: Rare Substance Use Type: None Smoking Status (MU): Former Smoker Type: Cigarettes Length of Time of Smoking/Using Tobacco: 12 yrs Have You Smoked in the Last Year: No When Did the Patient Quit Smoking/Using Tobacco: 2013 - Immunization History Most Recent Influenza Vaccination: DECLINES Most Recent Tetanus Shot: unsure, will offer Most Recent Pneumonia Vaccination: never Review of Systems All Other Systems Reviewed And Are Negative: Yes Constitutional: Positive: Negative Skin: Positive: Negative Respiratory: Positive: Negative Cardiovascular: Positive: Negative Neurovascular: Positive: Negative Musculoskeletal: Positive: Other: - Left shoulder pain Neurological: Positive: Negative Psychological: Positive: Negative Physical Exam - Summary Physical Exam Summary: GENERAL: NAD. WDWN. No pain distress. SKIN: No rashes, sores, lesions, or open wounds. CHEST: No accessory muscle use. Breathing comfortably and in no distress. CV: Pulses intact radial and ulnar. Cap refill <2seconds MSK: LEFT SHOULDER: TTP about shoulder and scapula. Pain with flexion to 90deg. Strength 3/5 including medical sales consultant strength compared to right. No edema or obvious bony deformities. FROM at left elbow and wrist. NEURO: Alert. Sensations slightly diminished C6/T1 region left UE. Intact C4- C5. PSYCH: Age appropriate behavior. Vital Signs: Initial Vital Signs Temp 98.5 F 04/10/19 16:22 Pulse 88 04/10/19 16:22 Resp 16 04/10/19 16:22 BP 143/88 04/10/19 16:22 Pulse Ox 99 04/10/19 16:22 Neck Pain Course/Dx - Course Course Of Treatment: I suspect a muscle spasm, but given her rapid progression of noticeable weakness to her left arm and hand - I recommend that she go to the ER for further evaluation. She may need a CT or MRI of her neck/shoulder given her progressing weakness with failure of muscle relaxers. - Differential Dx/Diagnosis Provider Diagnosis: Left arm weakness, Left shoulder pain Discharge - Sign-Out/Discharge Documenting (check all that apply): Patient Departure All imaging exams completed and their final reports reviewed: No Studies - Discharge Plan Condition: Stable Disposition: HOME-RECOMMEND TO ED Referrals: Carmencita Petit MD [Primary Care Provider] - Additional Instructions: Please go to the ER for further evaluation of your left arm progressing weakness and increased pain - Billing Disposition and Condition Condition: STABLE Disposition: Home-Recommend to ED - Attestation Statements Provider Attestation: I was available for consult. This patient was seen by the DIMITRIS. The patient was not presented to, seen by, or examined by me. -Yessy
== END 2019-04-10 17:17 | disposition home health service (06) ==
LOC: UCEAST 16:10
DX: M25.512 Pain in left shoulder (principal); R53.1 Weakness; Z87.891 Personal history of nicotine dependence; Z88.5 Allergy status to narcotic agent; Z88.2 Allergy status to sulfonamides
CPT/HCPCS: 99212; G0463

== ENCOUNTER 2019-04-10 17:40 | Emergency (ER) | payer BC ==
[2019-04-10 22:23] LABS: ABS Basophils 0.1 10^3/ul (0-0.2); ABS Lymphocytes 1.7 10^3/ul (1.0-4.8); ABS Monocytes 0.2 10^3/ul (0-0.8); ABS Neutrophils 9.1 10^3/ul (1.5-7.7); Eosinophil % 0.3 %; Hematocrit 36 % (35-47); Hemoglobin 11.5 g/dL (12.0-16.0); Lymphocyte % 15.4 %; Mean Corpuscular HGB Conc 32 g/dL (31-36); Mean Corpuscular Hemoglobin 23 pg (27-31); Mean Corpuscular Volume 72 fL (80-97); Mean Platelet Volume 8.1 fL (7.4-10.4); Platelet Count 246 10^3/uL (150-450); Red Blood Count 5.05 10^6 /uL (3.70-4.87); Red Cell Distribution Width 17 % (10-15); White Blood Count 11.2 10^3/uL (3.5-10.8)
[2019-04-10 22:35] LABS: Albumin 4.1 g/dL (3.2-5.2); Albumin/Globulin Ratio 1.2 (1-3); BUN/Creatinine Ratio 20.3 (8-20); C Reactive Protein 8.82 mg/L (<8.01); Calcium 9.2 mg/dL (8.6-10.3); EGFR Non-African American 103.3 (>60); Globulin 3.4 g/dL (2-4); Potassium 4.4 mmol/L (3.5-5.0); Total Bilirubin 0.4 mg/dL (0.2-1.0); Total Protein 7.5 g/dL (6.4-8.9)
[2019-04-10] MEDS ORDERED: oxyCODONE/Acetamin 5/325 MG* TAB PO ONE (23:34)
--- NOTE | 2019-04-11 00:29 | ED ---
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 Symptoms are worse in the morning, and with movement. Patient was seen at urgent care and prescribed prednisone, Valium and ibuprofen. Patient states she took medications for 2 days with no improvement in symptoms and then stopped taking medications. Denies initial traumatic event , fever, cough, sore throat, CP, SOB, N/V/V abdominal pain, change in urine, change in BM. - History of Current Complaint Chief Complaint: EDExtremityUpper Stated Complaint: LT SHOULDER PAIN PER PT Time Seen by Provider: 04/10/19 21:42 Hx Obtained From: Patient Hx Last Menstrual Period: start of march Mechanism Of Injury: Unknown Onset/Duration: Started Weeks Ago Timing: Intermittent Severity Initially: Mild Severity Currently: Moderate Pain Location: Shoulder, Arm Character: Dull, Aching, Throbbing, Spasmodic Aggravating Factor(s): Movement Alleviating Factor(s): Rest Associated Signs & Symptoms: Positive: Weakness, Numbness/Tingling, Neck Pain - Allergies/Home Medications Allergies/Adverse Reactions: Allergies Allergy/AdvReac Type Severity Reaction Status Date / Time cephalexin [From Keflex] Allergy Hives Verified 04/10/19 18:18 Sulfa (Sulfonamide Allergy Hives Verified 04/10/19 18:18 Antibiotics) codeine AdvReac Nausea And Verified 04/10/19 18:18 Vomiting PMH/Surg Hx/FS Hx/Imm Hx Endocrine/Hematology History: Reports: Hx Diabetes - pre diabetic Denies: Hx Thyroid Disease Cardiovascular History: Reports: Hx Valvular Heart Disease - mitral valve prolapse Denies: Hx Hypertension, Hx Pacemaker/ICD Respiratory History: Reports: Hx Asthma Denies: Hx Chronic Obstructive Pulmonary Disease (COPD) GI History: Reports: Hx Gastroesophageal Reflux Disease - problems with esophagus - seeing a specialist Denies: Hx Ulcer History: Denies: Hx Renal Disease Musculoskeletal History: Denies: Hx Rheumatoid Arthritis Sensory History: Reports: Hx Contacts or Glasses Denies: Hx Hearing Aid Opthamlomology History: Reports: Hx Contacts or Glasses Psychiatric History: Reports: Hx Anxiety, Hx Depression Denies: Hx Panic Disorder - Surgical History Surgery Procedure, Year, and Place: lap diamond, tubes in ears - Immunization History Date of Tetanus Vaccine: unk Date of Influenza Vaccine: none Infectious Disease History: No Infectious Disease History: Denies: Hx Clostridium Difficile, Hx Hepatitis, Hx Human Immunodeficiency Virus (HIV), Hx Shingles, Hx Tuberculosis, Hx Known/Suspected VRE, Hx Known/ Suspected VRSA, History Other Infectious Disease, Traveled Outside the [place] in Last 30 Days - Family History Known Family History: Positive: Unknown - Pt states she is "adopted", Non- Contributory - Social History Alcohol Use: Rare Hx Substance Use: No Substance Use Type: Reports: None Hx Tobacco Use: Yes Smoking Status (MU): Former Smoker Type: Cigarettes Length of Time of Smoking/Using Tobacco: 12 yrs Have You Smoked in the Last Year: No Review of Systems Constitutional: Negative Eyes: Negative ENT: Negative Cardiovascular: Negative Respiratory: Negative Gastrointestinal: Negative Genitourinary: Negative Musculoskeletal: Other Skin: Negative Positive: Weakness Psychological: Normal All Other Systems Reviewed And Are Negative: Yes Physical Exam - Summary Physical Exam Summary: No tenderness to palpation of left side neck, left-sided shoulder or left arm. Left supervisor instant potato processing strength appears to be mildly diminished, unclear whether secondary to pain or function. Pulses and sensation intact. Neuro exam otherwise unremarkable. Triage Information Reviewed: Yes Vital Signs On Initial Exam: Initial Vitals Temp Pulse Resp BP Pulse Ox 96.7 F 86 16 173/107 97 04/10/19 18:18 04/10/19 18:18 04/10/19 18:18 04/10/19 18:18 04/10/19 18:18 Vital Signs Reviewed: Yes Appearance: Positive: Well-Appearing Skin: Positive: Warm Head/Face: Positive: Normal Head/Face Inspection Eyes: Positive: Normal Neck: Positive: Supple Respiratory/Lung Sounds: Positive: Clear to Auscultation Abdomen Description: Positive: Nontender Musculoskeletal: Positive: Normal Neurological: Positive: Normal Psychiatric: Positive: Normal AVPU Assessment: Alert - [place]yon Coma Scale Best Eye Response: 4 - Spontaneous Best Motor Response: 6 - Obeys Commands Best Verbal Response: 5 - Oriented Coma Scale Total: 15 Diagnostics - Vital Signs Vital Signs Temp Pulse Resp BP Pulse Ox 04/10/19 23:50 16 04/10/19 20:22 98.2 F 82 18 169/100 96 04/10/19 18:26 155/96 04/10/19 18:18 96.7 F 86 16 173/107 97 - Laboratory Lab Results: Lab Results 04/10/19 04/10/19 Range/Units 22:12 22:12 WBC 11.2 H (3.5-10.8) 10^3/uL RBC 5.05 H (3.70-4.87) 10^6 /uL Hgb 11.5 L (12.0-16.0) g/dL Hct 36 (35-47) % MCV 72 L (80-97) fL MCH 23 L (27-31) pg MCHC 32 (31-36) g/dL RDW 17 H (10-15) % Plt Count 246 (150-450) 10^3/uL MPV 8.1 (7.4-10.4) fL Neut % (Auto) 81.7 % Lymph % (Auto) 15.4 % [place] % (Auto) 1.7 % Eos % (Auto) 0.3 % Baso % (Auto) 0.9 % Absolute Neuts (auto) 9.1 H (1.5-7.7) 10^3/ul Absolute Lymphs (auto) 1.7 (1.0-4.8) 10^3/ul Absolute Monos (auto) 0.2 (0-0.8) 10^3/ul Absolute Eos (auto) 0.0 (0-0.6) 10^3/ul Absolute Basos (auto) 0.1 (0-0.2) 10^3/ul Absolute Nucleated RBC 0.0 10^3/ul Nucleated RBC % 0.0 Sodium 135 (135-145) mmol/L Potassium 4.4 (3.5-5.0) mmol/L Chloride 101 (101-111) mmol/L Carbon Dioxide 22 (22-32) mmol/L Anion Gap 12 H (2-11) mmol/L BUN 13 (6-24) mg/dL Creatinine 0.64 (0.51-0.95) mg/dL Est GFR ( Amer) 125.0 (>60) Est GFR (Non-Af Amer) 103.3 (>60) BUN/Creatinine Ratio 20.3 H (8-20) Glucose 162 H (70-100) mg/dL Calcium 9.2 (8.6-10.3) mg/dL Total Bilirubin 0.40 (0.2-1.0) mg/dL AST 16 (13-39) U/L ALT 23 (7-52) U/L Alkaline Phosphatase 61 (34-104) U/L C-Reactive Protein 8.82 H (<8.01) mg/L Total Protein 7.5 (6.4-8.9) g/dL Albumin 4.1 (3.2-5.2) g/dL Globulin 3.4 (2-4) g/dL Albumin/Globulin Ratio 1.2 (1-3) Result Diagrams: 04/10/19 22:12 04/10/19 22:12 Lab Statement: Any lab studies that have been ordered have been reviewed, and results considered in the medical decision making process. 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 Symptoms are worse in the morning, and with movement. Patient was seen at urgent care and prescribed prednisone, Valium and ibuprofen. Patient states she took medications for 2 days with no improvement in symptoms and then stopped taking medications. Denies initial traumatic event, fever, cough, sore throat, CP, SOB, N/V/V abdominal pain, change in urine, change in BM. Vital signs within normal limits. WBC 11.2. Recent trial of prednisone. Labs otherwise unremarkable. CT cervical spine unremarkable. Follow-up with neurology and rheumatology. Patient understands and improves her plan. - Diagnoses Provider Diagnoses: Weakness of left upper extremity, Arm pain, left Discharge - Sign-Out/Discharge Documenting (check all that apply): Patient Departure Patient Received Moderate/Deep Sedation with Procedure: No - Discharge Plan Condition: Stable Disposition: HOME Prescriptions: Diazepam TAB(*) [Valium TAB(*)] 5 mg PO TID PRN 2 Days #5 tab MDD 3 tabs PRN Reason: Pain Patient Education Materials: Weakness (ED), Arm Pain (ED) Referrals: Carmencita Petit MD [Primary Care Provider] - Royal Arizmendi MD [Medical Doctor] - Additional Instructions: Contact neurology Dr. Arizmendi tomorrow for further evaluation of left arm pain and left arm weakness. Continue taking prednisone. Take Valium as directed for possible muscle spasm. Return to the ED for any new or worsening symptoms. - Billing Disposition and Condition Condition: STABLE Disposition: Home
[2019-04-11] MEDS ORDERED: Diazepam TAB(*) 5 MG PO ONE (00:51)
[2019-04-11 01:45] VITALS: BP 124/73
== END 2019-04-11 01:11 | disposition home or self-care (01) ==
LOC: ED 17:40
DX: M79.602 Pain in left arm (principal); R53.1 Weakness; Z88.1 Allergy status to other antibiotic agents; Z88.5 Allergy status to narcotic agent; Z88.2 Allergy status to sulfonamides; Z87.891 Personal history of nicotine dependence
CPT/HCPCS: 36415; 72125; 80053; 85025; 86140; 99282; A9270-GY

== ENCOUNTER 2019-06-06 08:17 | Emergency (ER) | payer BC ==
--- OUTSIDE RECORDS SUMMARY | 2019-06-06 08:23 | XMS REPORT | Continuity of Care Document ---
:1980 External Reference #:[id number] Author Name Rodriguez Schaffer M.D. 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 Onset: 10/19/2016 Iron deficiency anemia Carmencita Petit M.D. Onset: 10/19/2016 Note: due to hemorrhoidal bleeding Obesity Carmencita Petit M.D. Onset: 10/19/2016 Impaired fasting glycaemia Carmencita Petit M.D. Onset: 01/26/2018 Asthma Carmencita Petit M.D. Onset: 09/26/2018 Note: moderate asthma Social History Type Date Description Comments Sex Unknown Tobacco Use Start: Unknown End: Former Cigarette Smoker Smoked 3/4 ppd for Unknown 11 years Smoking Status Reviewed: 05/10/19 Former Cigarette Smoker Smoked 3/4 ppd for 11 years ETOH Use Rarely consumes alcohol Tobacco Use Start: Unknown End: Patient is a former Unknown smoker Recreational Drug Use Denies Drug Use Exercise Type/Frequency Does not exercise Allergies, Adverse Reactions, Alerts Active Allergies Reaction Severity Comments Date Codeine stomach issue 10/19/2016 Cephalexin hives 10/19/2016 Bactrim hives 10/19/2016 Medications Active Medications SIG Qnty Indications Ordering Date Provider Iron (Ferrous take one 60tabs Rodriguez Schaffer, 04/29/2019 Sulfate) capsule/tablet M.D. 142(45Fe) daily by mouth mg Tablets ER Zoloft 1 1/2 by mouth 90tabs Z79.899 Rodriguez Schaffer, 04/18/2019 100mg every day M.D. Tablets Glucophage Every Day Unknown 04/10/2019 500mg Tablets Meloxicam take one tab twice 30tabs M06.4 Rodriguez Schaffer, 11/03/2018 7.5mg daily as needed M.D. Tablets for pain, avoid other nsaids Pulmicort 9 Has Not Needed ) 180ml Carmencitaleydi Petit, 10/10/2018 1 unit nebulizer M.D. 0.25mg/2ML twice a day Suspension Albuterol Sulfate four times a day 90ml J45.901 Carmencita Marisabel, 09/26/2018 as needed M.D. (2.5mg/3ML) 0.083% Nebulizer Onetouch Ultra Blue test twice a day 100units R73.01 Carmencitaleydi Petit, 01/26 and as needed M.D. Strips Ventolin HFA 1 unit puff every 8gm J45.20 Marie Khan, 01/12/2018 6 hours as needed 108(90Base) mcg/Act Aerosol Wrist Splint use nightly to 2units G56.03 Rodriguez Schaffer, 11/25/2017 [facility] help with M.D. discomfort in the right and left hand History Medications Gabapentin take 1 capsule by 30edmundo Schaffer, 04/18/2019 - 100mg Capsules mouth at night for M.D. 05/10/2019 1 week then 1 by mouth twice daily ongoing Gabapentin take one 30caps Rodriguez Schaffer, 04/13/2019 - 300mg Capsules capsule/tablet by Katie 04/18/2019 mouth at night for 1 week then 1 twice daily ongoing Prednisone Every Day Unknown 04/10/2019 - 20mg Tablets 04/27/2019 Methotrexate Sodium Weekly Unknown 04/08/2019 - 2.5mg 04/18/2019 Tablets Valium Bedtime 3tabs Unknown 04/08/2019 - 5mg Tablets 04/18/2019 Methotrexate take 4 30tabs Rodriguez Schaffer, 03/30/2019 - 2.5mg capsules/tablets by Katie 04/18/2019 Tablets mouth once weekly on Folic Acid take one 90tabs Rodriguez Schaffer, 03/30/2019 - 1mg Tablets capsule/tablet M.D. 04/27/2019 daily by mouth Immunizations CPT Code Status Date Vaccine Lot # [id number] Refused 10/06/2017 Influenza Virus Vaccine, Quadrivalent, Split, Preservative Free Vital Signs Date Vital Result Comment 05/10/2019 4:14pm Height 63 inches 5'3" Weight 277.25 lb Heart Rate 88 /min BP Systolic Sitting 118 mmHg BP Diastolic Sitting 88 mmHg Pain Level 5 O2 % BldC Oximetry 97 % BMI (Body Mass Index) 49.1 kg/m2 04/28/2019 11:12am Height 63 inches 5'3" Weight 268.00 lb Heart Rate 74 /min BP Systolic Sitting 124 mmHg BP Diastolic Sitting 90 mmHg Respiratory Rate 18 /min Body Temperature 99.1 F BMI (Body Mass Index) 47.5 kg/m2 Results Test Date Facility Test Result H/L Range Note Laboratory test 05/11/2019 [facility] C Reactive 16.04 mg/L High <8.[address] [place] [address] [phone] CBC Auto Diff 05/11/2019 [facility] White Blood 8.6 10^3/uL Normal 3.5-10.[address] [place], [place] [id number] [phone] Red Blood Count 4.96 10^6/uL High 3.70-4.87 Hemoglobin 11.5 g/dL Low 12.0-16.0 Hematocrit 36 % Normal 35-47 Mean Corpuscular Volume 73 fL Low 80-97 1 Mean Corpuscular Hemoglobin 23 pg Low 27-31 Mean Corpuscular HGB Conc 32 g/dL Normal 31-36 Red Cell Distribution Width 18 % High 10-15 Platelet Count 225 10^3/uL Normal 150-450 Mean Platelet Volume 8.9 fL Normal 7.4-10.4 Abs Neutrophils 5.9 10^3/uL Normal 1.5-7.7 Abs Lymphocytes 2.1 10^3/uL Normal 1.0-4.8 Abs Monocytes 0.3 10^3/uL Normal 0-0.8 Abs Eosinophils 0.1 10^3/uL Normal 0-0.6 Abs Basophils 0.1 10^3/uL Normal 0-0.2 Abs Nucleated RBC 0.0 10^3/uL Granulocyte % 68.7 % Lymphocyte % 24.7 % Monocyte % 3.9 % Eosinophil % 1.7 % Basophil % 1.0 % Nucleated Red Blood Cells % 0.0 Comp Metabolic 05/11/2019 [facility] Sodium 137 mmol/L Normal 135-145 Panel [address] [place] [address] [phone] Potassium 4.4 mmol/L Normal 3.5-5.0 Chloride 105 mmol/L Normal 101-111 Co2 Carbon Dioxide 27 mmol/L Normal 22-32 Anion Gap 5 mmol/L Normal 2-11 Glucose 116 mg/dL High 70-100 Blood Urea Nitrogen 7 mg/dL Normal 6-24 Creatinine 0.57 mg/dL Normal 0.51-0.95 BUN/Creatinine Ratio 12.3 Normal 8-20 Calcium 8.9 mg/dL Normal 8.6-10.3 Total Protein 6.5 g/dL Normal 6.4-8.9 Albumin 4.1 g/dL Normal 3.2-5.2 Globulin 2.4 g/dL Normal 2-4 Albumin/Globulin Ratio 1.7 Normal 1-3 Total Bilirubin 0.40 mg/dL Normal 0.2-1.0 Alkaline Phosphatase 58 U/L Normal 34-104 Alt 33 U/L Normal 7-52 Ast 27 U/L Normal 13-39 Egfr Non- 118.1 >60 Egfr 142.9 >60 2 Laboratory test 05/11/2019 [facility] Erythrocyte Sed 35 mm/Hr High 0-[address] [place] [address] [phone] Urinalysis 05/11/2019 [facility] Urine Color Genna Profile [address] [place] [address] [phone] Urine Appearance Turbid Urine Specific [place] 1.015 Normal 1.010-1.030 Urine pH 5.0 Normal 5-9 Urine Urobilinogen Negative Negative Urine Ketones Negative Negative Urine Protein Negative Negative Urine Leukocytes Negative Negative Urine Blood Negative Negative Urine Nitrite Negative Negative Urine Bilirubin Negative Negative Urine Glucose Negative Negative Iron & Iron Binding 04/26/2019 [facility] Iron 33 g/dL Low 50-212 Capacity [address] [place] [address] [phone] Unsaturated Iron Binding < 451 g/dL Total Iron Binding Capacity 466 g/dL High 250-450 Transferrin 333 mg/dL Normal 203-362 % Iron Saturation 7 % Low 15-55 Vitamin B12 04/26/2019 [facility] Vitamin B12 334 pg/mL Normal 180-9[address] [place] [address] [phone] Folic Acid (Folate) 18.08 ng/mL >3.99 Laboratory test 04/26/2019 [facility] Ferritin 21.0 ng/mL Normal 11-[address] [place] [address] [phone] Comp Metabolic 04/14/2019 [facility] Sodium 139 mmol/L Normal 135-[address] [place] [address] [phone] Potassium 4.2 mmol/L Normal 3.5-5.0 Chloride 104 mmol/L Normal 101-111 Co2 Carbon Dioxide 27 mmol/L Normal 22-32 Anion Gap 8 mmol/L Normal 2-11 Glucose 143 mg/dL High 70-100 Blood Urea Nitrogen 10 mg/dL Normal 6-24 Creatinine 0.73 mg/dL Normal 0.51-0.95 BUN/Creatinine Ratio 13.7 Normal 8-20 Calcium 9.0 mg/dL Normal 8.6-10.3 Total Protein 6.4 g/dL Normal 6.4-8.9 Albumin 3.8 g/dL Normal 3.2-5.2 Globulin 2.6 g/dL Normal 2-4 Albumin/Globulin Ratio 1.5 Normal 1-3 Total Bilirubin 0.30 mg/dL Normal 0.2-1.0 Alkaline Phosphatase 55 U/L Normal 34-104 Alt 16 U/L Normal 7-52 Ast 10 U/L Low 13-39 Egfr Non- 88.8 >60 Egfr 107.4 >60 4 CBC Auto 04/14/2019 [facility] White Blood 13.7 10^3/uL High 3.5-10.[address] [place] [address] [phone] Red Blood Count 4.59 10^6/uL Normal 3.70-4.87 Hemoglobin 10.7 g/dL Low 12.0-16.0 Hematocrit 33 % Low 35-47 Mean Corpuscular Volume 72 fL Low 80-97 5 Mean Corpuscular Hemoglobin 23 pg Low 27-31 Mean Corpuscular HGB Conc 32 g/dL Normal 31-36 Red Cell Distribution Width 17 % High 10-15 Platelet Count 222 10^3/uL Normal 150-450 Mean Platelet Volume 8.6 fL Normal 7.4-10.4 Abs Neutrophils 9.0 10^3/uL High 1.5-7.7 Abs Lymphocytes 3.8 10^3/uL Normal 1.0-4.8 Abs Monocytes 0.6 10^3/uL Normal 0-0.8 Abs Eosinophils 0.2 10^3/uL Normal 0-0.6 Abs Basophils 0.1 10^3/uL Normal 0-0.2 Abs Nucleated RBC 0.0 10^3/uL Granulocyte % 65.8 % Lymphocyte % 27.7 % Monocyte % 4.1 % Eosinophil % 1.8 % Basophil % 0.6 % Nucleated Red Blood Cells % 0.1 Laboratory test 04/14/2019 [facility] Erythrocyte Sed 31 mm/Hr High 0-[address] [place] [address] [phone] C Reactive Protein 11.99 mg/L High <8.01 CBC Auto 04/10/2019 [facility] White Blood 11.2 10^3/uL High 3.5-10.[address] [place], [place] [address] [phone] Red Blood Count 5.05 10^6/uL High 3.70-4.87 Hemoglobin 11.5 g/dL Low 12.0-16.0 Hematocrit 36 % Normal 35-47 Mean Corpuscular Volume 72 fL Low 80-97 6 Mean Corpuscular Hemoglobin 23 pg Low 27-31 Mean Corpuscular HGB Conc 32 g/dL Normal 31-36 Red Cell Distribution Width 17 % High 10-15 Platelet Count 246 10^3/uL Normal 150-450 Mean Platelet Volume 8.1 fL Normal 7.4-10.4 Abs Neutrophils 9.1 10^3/uL High 1.5-7.7 Abs Lymphocytes 1.7 10^3/uL Normal 1.0-4.8 Abs Monocytes 0.2 10^3/uL Normal 0-0.8 Abs Eosinophils 0.0 10^3/uL Normal 0-0.6 Abs Basophils 0.1 10^3/uL Normal 0-0.2 Abs Nucleated RBC 0.0 10^3/uL Granulocyte % 81.7 % Lymphocyte % 15.4 % Monocyte % 1.7 % Eosinophil % 0.3 % Basophil % 0.9 % Nucleated Red Blood Cells % 0.0 Comp Metabolic 04/10/2019 [facility] Sodium 135 mmol/L Normal 135-145 Panel [address] [place] [address] [phone] Potassium 4.4 mmol/L Normal 3.5-5.0 Chloride 101 mmol/L Normal 101-111 Co2 Carbon Dioxide 22 mmol/L Normal 22-32 Anion Gap 12 mmol/L High 2-11 Glucose 162 mg/dL High 70-100 Blood Urea Nitrogen 13 mg/dL Normal 6-24 Creatinine 0.64 mg/dL Normal 0.51-0.95 BUN/Creatinine Ratio 20.3 High 8-20 Calcium 9.2 mg/dL Normal 8.6-10.3 Total Protein 7.5 g/dL Normal 6.4-8.9 Albumin 4.1 g/dL Normal 3.2-5.2 Globulin 3.4 g/dL Normal 2-4 Albumin/Globulin Ratio 1.2 Normal 1-3 Total Bilirubin 0.40 mg/dL Normal 0.2-1.0 Alkaline Phosphatase 61 U/L Normal 34-104 Alt 23 U/L Normal 7-52 Ast 16 U/L Normal 13-39 Egfr Non- 103.3 >60 Egfr 125.0 >60 7 Laboratory test 04/10/2019 [facility] C Reactive 8.82 mg/L High <8.01 finding [address] [facility] [place] [address] [phone] Laboratory test 12/28/2018 [facility] C Reactive 15.67 mg/L High <8.01 finding [address] [facility] [place] [address] [phone] Erythrocyte Sed Rate 32 mm/Hr High 0-19 1 Consistent with Previous Results Reported on 04/14/19 2 Because ethnic data is not always readily [...] 15-29 5 Kidney failure <15 (or dialysis) 3 Normal Range 180 to 914 Indeterminate Range 145 to 180 Deficient Range <145 4 Because ethnic data is not always [...] 5 Kidney failure <15 (or dialysis) 5 Consistent with Previous Results Reported on 04/10/19 6 Consistent with Previous Results Reported on 02/10/19. 7 Because ethnic data is not always readily [...] 15-29 5 Kidney failure <15 (or dialysis) Procedures Date Code Description Status 10/13/2016 79261929 Colonoscopy Completed Medical Devices Description No Information Available Encounters Type Date Location Provider Dx Diagnosis Office Visit 05/10/2019 Rheumatology Rodriguez Schaffer G99.2 Myelopathy in 4:[facility] diseases classified elsewhere M06.4 Inflammatory polyarthropathy R70.0 Elevated erythrocyte sedimentation rate Z79.1 MCC (current) use of non-steroidal non-inflam (Nsaid) N39.41 Urge incontinence Office Visit 04/18/2019 Rheumatology Rodriguez M06.4 Inflammatory 3:00[facility] Schaffer M.D. 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 polyarthropathy R79.82 Elevated C-reactive protein (CRP) R70.0 Elevated erythrocyte sedimentation rate Z79.899 Other fdc (current) drug therapy Office Visit 12/28/2018 Rheumatology Rodriguez M06.4 Inflammatory 11:00a [facility] Schaffer M.D. polyarthropathy R79.82 Elevated C-reactive protein (CRP) R70.0 Elevated erythrocyte sedimentation rate M25.572 Pain in left ankle and joints of left foot Assessments Date Code Description Provider 05/10/2019 G99.2 Spinal stenosis in cervical region Rodriguez Schaffer M.D. 05/10/2019 M06.4 Inflammatory polyarthropathy Rodriguez Schaffer M.D. 05/10/2019 R70.0 Elevated erythrocyte sedimentation rate Rodriguez Schaffer M.D. 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 anti-inflammatories (Nsaid) 05/10/2019 N39.41 Urge incontinence Rodriguez Schaffer M.D. 04/28/2019 G99.2 Spinal stenosis in cervical region PORTILLO Rivas 04/18/2019 M06.4 Inflammatory polyarthropathy Rodriguez Schaffer M.D. 04/18/2019 R79.82 Elevated C-reactive protein (CRP) Rodriguez Schaffer M.D. 04/18/2019 R70.0 Elevated erythrocyte sedimentation rate Rodriguez Schaffer M.D. 04/18/2019 Z79.899 Other termite control technician (current) drug therapy Rodriguez Schaffer M.D. 04/18/2019 M62.81 Muscle weakness (generalized) Rodriguez Schaffer M.D. 03/30/2019 M06.4 Inflammatory polyarthropathy Rodriguez Schaffer M.D. 03/30/2019 R79.82 Elevated C-reactive protein (CRP) Rodriguez Schaffer M.D. 03/30/2019 R70.0 Elevated erythrocyte sedimentation rate Rodriguez Schaffer M.D. 03/30/2019 Z79.899 Other fdc (current) drug therapy Rodriguez Schaffer M.D. 12/28/2018 M06.4 Inflammatory polyarthropathy Rodriguez Schaffer M.D. 12/28/2018 R79.82 Elevated C-reactive protein (CRP) Rodriguez Schaffer M.D. 12/28/2018 R70.0 Elevated erythrocyte sedimentation rate Rodriguez Schaffer M.D. 12/28/2018 M25.572 Pain in left ankle and joints of left foot Rodriguez Schaffer M.D. Plan of Treatment Future Appointment(s):06/02/2019 1:00 pm - Rodriguez Schaffer M.D. at [facility]05/31/2019 3:30 pm - PORTILLO Rivas at [facility]10/17/2019 10:00 am - Royal Arizmendi M.D. at [place] [facility]04/28/2019 - Karlos Clark PAG99.2 Myelopathy in diseases classified elsewhereFollow up:RTC in 4 -5 weeks Functional Status Description No Information Available Mental Status Description No Information Available Referrals Refer to Dr Reason for Referral Status Appt Date Doug Thorne MD Please evaluate and treat cervical radiculopathy Sent [address] [facility] [address] [place] [address] [phone] Christiano Puga MD Please evaluate and treat iron deficiency anemia Sent and determine cause of rising white count to see if there is a hematologic cause of anemia and leukocytosis and elevated inflammatory markers [address] [place] [address] [phone] Anamika Elena MD please evaluate and treat patient with Scheduled 05/03/2019 asymmetric upper extremity weakness now extruded paracentral disc associated severe cervical neural foraminal stenosis [address] [facility], [facility] [place] [address] [phone] Royal Arizmendi MD Please evaluate patient with new onset left upper Sent 00 / extremity weakness, history of an inflammatory arthropathy [address] [place] [address] [place] [address] [phone]
--- OUTSIDE RECORDS SUMMARY | 2019-06-06 08:23 | XMS REPORT | Continuity of Care Document ---
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 Capsules 1 week then 1 by mouth twice daily ongoing Zoloft 1 1/2 by mouth 90tabs Z79.899 Rodriguez Schaffer, 04/18/2019 100mg every day M.D. Tablets Glucophage Every Day Unknown 04/10/2019 500mg Tablets Prednisone Every Day Unknown 04/10/2019 20mg Tablets Folic Acid take one 90tabs Rodriguez Schaffer, 03/30/2019 1mg capsule/tablet M.D. Tablets daily by mouth Meloxicam take one tab twice 30tabs M06.4 Rodriguez Schaffer, 11/03/2018 7.5mg daily as needed M.D. Tablets for pain, avoid other nsaids Pulmicort 9 Has Not Needed ) 180ml Carmencita Petit, 10/10/2018 1 unit nebulizer M.D. 0.25mg/2ML [...] nightly to 2units G56.03 Rodriguez Schaffer, 11/25/2017 Misc help with M.D. discomfort in the right and left hand Diazepam TK 1 T PO AT Unknown 5mg Bedtime MDD 1 Tablets History Medications Gabapentin take one 30caps Rodriguez Schaffer, 04/13/2019 - 300mg capsule/tablet by M.D. 04/18/2019 Capsules mouth at night for 1 week then 1 twice daily ongoing Methotrexate Sodium Weekly Unknown 04/08/2019 - 04/18/2019 2.5mg Tablets Valium Bedtime 3tabs Unknown 04/08/2019 - 5mg Tablets 04/18/2019 Methotrexate take 4 30tabs Rodriguez Schaffer 03/30/2019 - 2.5mg capsules/tablets by Katie 04/18/2019 Tablets mouth once weekly on Doxycycline 1 tablet by mouth 14caps Marie 10/12/2018 - Monohydrate every 12 hours MD Bill 11/03/2018 100mg Capsules Prednisone 2 tab by mouth every QS J45.90 [facility] 10/10/2018 - 20mg day x4 days then 1 1 Katie Petit 11/03/2018 Tablets tab daily for 3 days, then 1/2 tab daily for 3 days Breo Ellipta 1 puff inhaled daily 60units J45.90 Carmencita 10/03/2018 - 1 Katie Petit 12/28/2018 200-25mcg/Inh Aerosol Prednisone 2 1/2 tab daily for QS J45.90 Carmencita 10/03/2018 - 20mg 2 days, then 2 tab 1 Katie Petit 10/10/2018 Tablets daily X 4 days then 1 tab daily for 3 days then 1/2 tab X 2 days Prednisone 3 tab by mouth every QS J45.90 Carmencita 09/26/2018 - 20mg day x1 days then 2 1 Katie Petit 10/03/2018 Tablets 1/2 tab daily for 2 days, then 2 tab daily X 3 days then 1/2 tab daily for 3 days Flovent Diskus 1 puff every 12 hours 28units J45.90 Carmencita 09/26/2018 - , swish and spit an 1 Katie Petit 10/03/2018 250mcg/Blist Aerosol hour later Cleocin one applicatorful per 40gm N76.0 Bharti Bonner, 08/19/2018 - 2% Cream vagina at bedime x 3 08/23/2018 days Ciprofloxacin HCL 1 by mouth twice a 6tabs N39.0 Bharti Bonner, 08/19/2018 - day for 3 days 08/23/2018 500mg Tablets Plaquenil Take 2 by mouth daily 60tabs Rodriguez Schaffer 07/04/2018 - 200mg ongoing Katie 08/19/2018 Tablets [place]-3 & [place]-6 take one 90caps Rodriguez Schaffer, 04/28/2018 - Fish Oil capsule/tablet daily M.D. 05/30/2018 1200mg by mouth Capsules Turmeric Curcumin Take one 90caps Rodriguez Schaffer, 04/28/2018 - capsule/tablet daily M.D. 09/26/2018 5-1000mg Capsules by mouth Methotrexate take 4 30tabs M06.4 Rodriguez Schaffer, [...] day 14caps Zunilda 12/27/2017 - 500mg Rowe, [employer] 01/11/2018 Capsules Plaquenil Take 2 by mouth daily 60tabs M06.4 Rodriguez Schaffer, 12/14/2017 - 200mg ongoing M.D. 04/20/2018 Tablets B12 Fast Dissolve sublingual daily 90tabs Rodriguez Schaffer, 12/04/2017 - M.D. 04/04/2018 5000mcg Tablets Dispers Sertraline HCL 1 by mouth every day 30tabs F32.9 Elena Willis, 2016 - 50mg for N.P. 01/15/2017 Tablets Sertraline HCL take 1 tablet by 90tabs Z79.89 Carmencita 01/15/2017 - 100mg mouth once daily 9 Katie Petit 04/18/2019 Tablets Zoloft Every Day Unknown 06/22/2013 - 25mg Tablets 04/18/2019 Iron 1 by mouth every day Unknown [...] By Unknown - 250mg Motuh Today Then Take 09/26/2018 Tablets 1 Tablet Daily For 4 Days Benzonatate take 1 capsule by Unknown - 100mg mouth three times a 09/26/2018 Capsules day if needed for cough Prednisone take 2 tablets by Unknown - 20mg mouth once daily 09/26/2018 Tablets Immunizations CPT Code Status Date Vaccine Lot # [id number] Refused 10/06/2017 Influenza Virus Vaccine, Quadrivalent, Split, Preservative Free Vital Signs Date Vital Result Comment 04/18/2019 3:35pm Height 63 inches 5'3" Weight 272.50 lb Heart Rate 115 /min BP Systolic Sitting 124 mmHg BP Diastolic Sitting 86 mmHg Pain Level 6 O2 % BldC Oximetry 98 % BMI (Body Mass Index) 48.3 kg/m2 03/30/2019 9:30am Height 63 inches 5'3" Weight [...] Test Result H/L Range Note Laboratory test 04/14/2019 [facility] Erythrocyte Sed 31 mm/Hr High 0-[address] [place] [address] [phone] C Reactive Protein 11.99 mg/L High <8.01 CBC Auto 04/14/2019 [facility] White Blood 13.7 10^3/uL High 3.5-10.[address] [place] [address] [phone] Red Blood Count 4.59 10^6/uL Normal 3.70-4.87 Hemoglobin 10.7 g/dL Low 12.0-16.0 Hematocrit 33 % Low 35-47 Mean Corpuscular Volume 72 fL Low 80-97 1 Mean Corpuscular Hemoglobin [...] % Nucleated Red Blood Cells % 0.1 Comp Metabolic 04/14/2019 [facility] Sodium 139 mmol/L Normal 135-[address] [place] [address] [phone] Potassium 4.2 mmol/L Normal 3.5-5.0 Chloride 104 [...] Egfr Non- 88.8 >60 Egfr 107.4 >60 2 CBC Auto 04/10/2019 [facility] White Blood 11.2 10^3/uL High 3.5-10.[address] [place] [address] [phone] Red Blood Count 5.05 10^6/uL High 3.70-4.87 Hemoglobin 11.5 g/dL Low 12.0-16.0 Hematocrit 36 % Normal 35-47 Mean Corpuscular Volume 72 fL Low 80-97 3 Mean Corpuscular Hemoglobin 23 pg Low 27-31 [...] Blood Cells % 0.0 Comp Metabolic 04/10/2019 [facility] Sodium 135 mmol/L Normal 135-145 Panel [address] [place] [address] [phone] Potassium 4.4 mmol/L Normal 3.5-5.0 Chloride 101 [...] Egfr Non- 103.3 >60 Egfr 125.0 >60 4 Laboratory test 04/10/2019 [facility] C Reactive 8.82 mg/L High <8.01 finding 101 [facility] [place] [address] [phone] Laboratory test 12/28/2018 [facility] C Reactive 15.67 mg/L High <8.01 finding [facility] [place] [address] [phone] Erythrocyte Sed Rate 32 mm/Hr High 0-19 Laboratory test 10/31/2018 [facility] Immunoglobulin E 6.3 kU/L <= 214 5 finding [facility] ([place]ge) [place] [address] [phone] Anca AB Ser If 10/31/2018 [facility] [place] [address] [phone] P-Anca Negative Negative 6 Connective Tissue 10/31/2018 [facility] Anti-Nuclear Antibody 0.6 U 7 [place] [address] [phone] Cyclic Citrullinated Peptide <15.6 U 8 Interpretation See Comment 9 Laboratory test 10/31/2018 [facility] C Reactive 11.13 mg/L High <8.[address] [place] [address] [phone] Erythrocyte Sed Rate 44 mm/Hr High 0-20 10 Ua Routine 08/23/2018 [facility] Ua Specific Dennison 1.010 Ua PH 7 Ua Color medium yellow Ua Appera cloudy Ua WBC + Ua Protein - Ua Glucose norm Ua Ketones - Ua Bilirubin - Ua Urobilinogen norm Ua Nitrite - Ua Occult Blood 250 Laboratory test 08/23/2018 [facility] Test neg finding Urine Laboratory test 08/23/2018 [facility] Gardnerella/Yea SEE RESULT [address]: [place] [address] [phone] Laboratory test 08/23/2018 [facility] Amylase 17 U/L Low 29- [address] [place] [address] [phone] Lipase < 10 U/L Low 11.0-82.0 Hemoglobin A1c (Glyco HGB) 5.4 % Normal 4.0-5.6 13 Comp Metabolic 08/23/2018 [facility] Sodium 139 mmol/L Normal 135-[address] [place] [address] [phone] Potassium 4.4 mmol/L Normal 3.5-5.0 Chloride 104 mmol/L Normal 101-111 Co2 Carbon Dioxide 28 mmol/L Normal 22-32 Anion Gap 7 mmol/L Normal 2-11 Glucose 86 mg/dL Normal 70-100 Blood Urea Nitrogen 9 mg/dL Normal 6-24 Creatinine 0.58 mg/dL Normal 0.51-0.95 BUN/Creatinine Ratio 15.5 Normal 8-20 Calcium 9.5 mg/dL Normal 8.6-10.3 Total Protein 6.6 g/dL Normal 6.4-8.9 Albumin 4.1 g/dL Normal 3.2-5.2 Globulin 2.5 g/dL Normal 2-4 Albumin/Globulin Ratio 1.6 Normal 1-3 Total Bilirubin 0.40 mg/dL Normal 0.2-1.0 Alkaline Phosphatase 57 U/L Normal 34-104 Alt 28 U/L Normal 7-52 Ast 15 U/L Normal 13-39 Egfr Non- 115.7 >60 Egfr 140.0 >60 14 Laboratory test 08/23/2018 [facility] Erythrocyte Sed 32 mm/Hr High 0-[address] [place] [address] [phone] CBC Auto Diff 08/23/2018 [facility] White Blood 9.0 Normal 3.5 -10.[address] Count 10^3/[place] [address] [phone] Red Blood Count 4.93 10^6/uL Normal 4.00-5.40 Hemoglobin 12.3 g/dL Normal 12.0-16.0 Hematocrit 37 % Normal 35-47 Mean Corpuscular Volume 76 fL Low 80-97 Mean Corpuscular Hemoglobin 25 pg Low 27-31 Mean Corpuscular HGB Conc 33 g/dL Normal 31-36 Red Cell Distribution Width 16 % High 10.5-15 Platelet Count 205 10^3/uL Normal 150-450 Mean Platelet Volume 9.3 fL Normal 7.4-10.4 Abs Neutrophils 5.7 10^3/uL Normal 1.5-7.7 Abs Lymphocytes 2.7 10^3/uL Normal 1.0-4.8 Abs Monocytes 0.4 10^3/uL Normal 0-0.8 Abs Eosinophils 0.2 10^3/uL Normal 0-0.6 Abs Basophils 0.1 10^3/uL Normal 0-0.2 Abs Nucleated RBC 0 10^3/uL Granulocyte % 63.4 % Lymphocyte % 29.8 % Monocyte % 4.4 % Eosinophil % 1.7 % Basophil % 0.7 % Nucleated Red Blood Cells % 0 Laboratory test 08/23/2018 [facility] C Reactive 22.07 mg/L High <8.[address] [place] [address] [phone] Urine Culture And 08/19/2018 [facility] Urine SEE RESULT 15 , [address] [place] [address] [phone] Ua Routine 08/19/2018 [facility] Ua Specific 1.030 Dennison Ua PH 5 Ua Color yellow Ua Appera clear Ua WBC trace Ua Protein neg Ua Glucose norm Ua Ketones neg Ua Bilirubin neg Ua Urobilinogen norm Ua Nitrite neg Ua Occult Blood neg Laboratory test 05/26/2018 [facility] Erythrocyte Sed 29 mm/Hr High 0-14 17, [address] [place] [address] [phone] C Reactive Protein 10.86 mg/L High <8.01 19 Comp Metabolic 05/26/2018 [facility] Sodium 139 mmol/L Normal 135-[address] [place] [address] [phone] Potassium 4.1 mmol/L Normal 3.5-5.0 Chloride 105 mmol/L Normal 101-111 Co2 Carbon Dioxide 25 mmol/L Normal 22-32 Anion Gap 9 mmol/L Normal 2-11 Glucose 111 mg/dL High 70-100 Blood Urea Nitrogen 9 mg/dL Normal 6-24 Creatinine 0.59 mg/dL Normal 0.51-0.95 BUN/Creatinine Ratio 15.3 Normal 8-20 Calcium 9.3 mg/dL Normal 8.6-10.3 Total Protein 6.8 g/dL Normal 6.4-8.9 Albumin 4.1 g/dL Normal 3.2-5.2 Globulin 2.7 g/dL Normal 2-4 Albumin/Globulin Ratio 1.5 Normal 1-3 Total Bilirubin 0.40 mg/dL Normal 0.2-1.0 Alkaline Phosphatase 48 U/L Normal 34-104 Alt 31 U/L Normal 7-52 Ast 23 U/L Normal 13-39 Egfr Non- 114.1 >60 Egfr 138.0 >60 20 CBC Auto 05/26/2018 [facility] White Blood 8.6 10^3/uL Normal 3.5-10.[address] [place] [address] [phone] Red Blood Count 4.74 10^6/uL Normal 4.00-5.40 Hemoglobin 11.5 g/dL Low 12.0-16.0 Hematocrit 35 % Normal 35-47 Mean Corpuscular Volume 74 fL Low 80-97 21 Mean Corpuscular Hemoglobin 24 pg Low 27-31 Mean Corpuscular HGB Conc 33 g/dL Normal 31-36 Red Cell Distribution Width 16 % High 10.5-15 Platelet Count 192 10^3/uL Normal 150-450 Mean Platelet Volume 9.4 um3 Normal 7.4-10.4 Abs Neutrophils 5.4 10^3/uL Normal 1.5-7.7 Abs Lymphocytes 2.5 10^3/uL Normal 1.0-4.8 Abs Monocytes 0.4 10^3/uL Normal 0-0.8 Abs Eosinophils 0.2 10^3/uL Normal 0-0.6 Abs Basophils 0.1 10^3/uL Normal 0-0.2 Abs Nucleated RBC 0 10^3/uL Granulocyte % 63.3 % Normal 38-83 Lymphocyte % 29.6 % Normal 25-47 Monocyte % 4.2 % Normal 0-7 Eosinophil % 2.2 % Normal 0-6 Basophil % 0.7 % Normal 0-2 Nucleated Red Blood Cells % 0 Cortisol Free 04/14/2018 [facility] Urine Free 13 mcg/24h 3.5 -45 22 24HR Urine [address] [place] [address] [phone] Urine Collection Duration 24 h Urine Total Volume 1450 mL 23 Comp Metabolic 04/08/2018 [facility] Sodium 138 mmol/L Normal 135-[address] [place] [address] [phone] Potassium 4.5 mmol/L Normal 3.5-5.0 Chloride 102 mmol/L Normal 101-111 Co2 Carbon Dioxide 28 mmol/L Normal 22-32 Anion Gap 8 mmol/L Normal 2-11 Glucose 115 mg/dL High 70-100 Blood Urea Nitrogen 8 mg/dL Normal 6-24 Creatinine 0.68 mg/dL Normal 0.51-0.95 BUN/Creatinine Ratio 11.8 Normal 8-20 Calcium 9.0 mg/dL Normal 8.6-10.3 Total Protein 6.8 g/dL Normal 6.4-8.9 Albumin 4.0 g/dL Normal 3.2-5.2 Globulin 2.8 g/dL Normal 2-4 Albumin/Globulin Ratio 1.4 Normal 1-3 Total Bilirubin 0.50 mg/dL Normal 0.2-1.0 Alkaline Phosphatase 50 U/L Normal 34-104 Alt 26 U/L Normal 7-52 Ast 25 U/L Normal 13-39 Egfr Non- 96.8 >60 Egfr 117.2 >60 24 CBC Auto 04/08/2018 [facility] White Blood 7.6 10^3/uL Normal 3.5-10.[address] [place] [address] [phone] Red Blood Count 4.79 10^6/uL Normal 4.00-5.40 Hemoglobin 11.5 g/dL Low 12.0-16.0 Hematocrit 36 % Normal 35-47 Mean Corpuscular Volume 75 fL Low 80-97 Mean Corpuscular Hemoglobin 24 pg Low 27-31 Mean Corpuscular HGB Conc 32 g/dL Normal 31-36 Red Cell Distribution Width 17 % High 10.5-15 Platelet Count 212 10^3/uL Normal 150-450 Mean Platelet Volume 8.8 um3 Normal 7.4-10.4 Abs Neutrophils 5.0 10^3/uL Normal 1.5-7.7 Abs Lymphocytes 2.1 10^3/uL Normal 1.0-4.8 Abs Monocytes 0.3 10^3/uL Normal 0-0.8 Abs Eosinophils 0.2 10^3/uL Normal 0-0.6 Abs Basophils 0 10^3/uL Normal 0-0.2 Abs Nucleated RBC 0 10^3/uL Granulocyte % 65.2 % Normal 38-83 Lymphocyte % 27.7 % Normal 25-47 Monocyte % 4.2 % Normal 0-7 Eosinophil % 2.3 % Normal 0-6 Basophil % 0.6 % Normal 0-2 Nucleated Red Blood Cells % 0 Laboratory test 04/08/2018 [facility] Erythrocyte Sed 39 mm/Hr High 0-14 [address] [place] [address] [phone] C Reactive Protein 15.29 mg/L High <8.01 26 Heavy Metal Blool 04/08/2018 [facility] Arsenic <1 ng/mL 0- [address] [place] [address] [phone] Lead <1.0 g/dL 0.0-4.9 28 Mercury <1 ng/mL 0-9 29 Cadmium <0.2 ng/mL 0.0-4.[address] [place] [address] [address] [facility] [place] [address] [facility] Guardian First Name ANANYA Bhat Guardian Last Name PRESTON GALLEGOS Venous/Capillary Heavy Metals Venous Patient Race WHITE Submitting Laboratory Phone [phone] Laboratory 04/08/2018 [facility] Methylmalonic 0.10 <=0.40 [address] Acid Mma nmol/[place] [address] [phone] Basic 04/08/2018 [facility] Sodium 139 mmol/L Normal 135-[address] [place] [address] [phone] Potassium 4.4 mmol/L Normal 3.5-5.0 Chloride 103 mmol/L Normal 101-111 Co2 Carbon Dioxide 27 mmol/L Normal 22-32 Anion Gap 9 mmol/L Normal 2-11 Glucose 111 mg/dL High 70-100 Blood Urea Nitrogen 8 mg/dL Normal 6-24 Creatinine 0.69 mg/dL Normal 0.51-0.95 BUN/Creatinine Ratio 11.6 Normal 8-20 Calcium 9.0 mg/dL Normal 8.6-10.3 Egfr Non- 95.2 >60 Egfr 115.2 >60 34 HIV 1/2 AB 04/08/2018 [facility] HIV 1 2 Nonreactive Nonreactive [address] [place] [address] [phone] Laboratory 04/08/2018 [facility] Vitamin 884 pg/mL Normal 180- 914 [address]12 [place] [address] [phone] Lyme Disease Serology Negative Negative 37 Laboratory test 04/05/2018 [facility] Hemoglobin A1c 5.7 5-7 finding Laboratory test 01/13/2018 [facility] Erythrocyte Sed 38 mm/Hr High 0-14 [address] [place] [address] [phone] CRP High Sensitivity 20.86 mg/L 39 C Reactive Protein 19.71 mg/L High < 5.00 40 CBC Auto 01/13/2018 [facility] White Blood 7.8 10^3/uL Normal 3.5-10.[address] [place] [address] [phone] Red Blood Count 4.55 10^6/uL Normal 4.0-5.4 Hemoglobin 10.8 g/dL Low 12.0-16.0 Hematocrit 33 % Low 35-47 Mean Corpuscular Volume 72 fL Low 80-97 41 Mean Corpuscular Hemoglobin 24 pg Low 27-31 Mean Corpuscular HGB Conc 33 g/dL Normal 31-36 Red Cell Distribution Width 17 % High 10.5-15 Platelet Count 185 10^3/uL Normal 150-450 Mean Platelet Volume 8.8 um3 Normal 7.4-10.4 Abs Neutrophils 5.1 10^3/uL Normal 1.5-7.7 Abs Lymphocytes 2.1 10^3/uL Normal 1.0-4.8 Abs Monocytes 0.3 10^3/uL Normal 0-0.8 Abs Eosinophils 0.2 10^3/uL Normal 0-0.6 Abs Basophils 0.1 10^3/uL Normal 0-0.2 Abs Nucleated RBC 0 10^3/uL Granulocyte % 65.9 % Normal 38-83 Lymphocyte % 26.8 % Normal 25-47 Monocyte % 3.8 % Normal 0-7 Eosinophil % 2.8 % Normal 0-6 Basophil % 0.7 % Normal 0-2 Nucleated Red Blood Cells % 0 Comp Metabolic Panel 01/13/2018 [facility] Sodium 138 mmol/L Low 139-145 [address] [place] [address] [phone] Potassium 4.4 mmol/L Normal 3.5-5.0 Chloride 104 mmol/L Normal 101-111 Co2 Carbon Dioxide 26 mmol/L Normal 22-32 Anion Gap 8 mmol/L Normal 2-11 Glucose 160 mg/dL High 70-100 Blood Urea Nitrogen 10 mg/dL Normal 6-24 Creatinine 0.64 mg/dL Normal 0.51-0.95 BUN/Creatinine Ratio 15.6 Normal 8-20 Calcium 8.7 mg/dL Normal 8.6-10.3 Total Protein 6.5 g/dL Normal 6.4-8.9 Albumin 3.7 g/dL Normal 3.2-5.2 Globulin 2.8 g/dL Normal 2-4 Albumin/Globulin Ratio 1.3 Normal 1-3 Total Bilirubin 0.30 mg/dL Normal 0.2-1.0 Alkaline Phosphatase 56 U/L Normal 34-104 Alt 19 U/L Normal 7-52 Ast 14 U/L Normal 13-39 Egfr Non- 103.9 >60 Egfr 133.6 >60 42 Urinalysis Profile 12/14/2017 [facility] Urine Color Yellow [address] [place] [address] [phone] Urine Appearance Cloudy Urine Specific Dennison 1.020 Normal 1.010-1.030 Urine pH 6.0 Normal 5-9 Urine Urobilinogen Negative Negative Urine Ketones Negative Negative Urine Protein Negative Negative Urine Leukocytes 3+ Abnormal Negative Urine Blood Negative Negative * * Abnormal Negative 43 Urine Nitrite Negative Negative Urine Bilirubin Negative Negative Urine Glucose Negative Negative Urine White Blood Cell 3+(>20/hpf) Abnormal Absent Urine Red Blood Cell 2+(6-10/hpf) Abnormal Absent Urine Bacteria Absent Absent Urine Squamous Epithelial Cell Present Abnormal Absent Urine Culture 12/14/2017 [facility] Urine Culture SEE [address] [place] [address] BELOW [phone] Laboratory test 11/25/2017 [facility] Thyroperoxidase AB 0.44 Normal <9 45, finding [address] IU/mL 46 [place] [address] [phone] Vitamin B12 And 11/25/2017 [facility] Vitamin B12 204 pg/mL Normal 180 47 Folate Serum [address]91 [place] [address] 4 [phone] Folic Acid (Folate) 10.13 ng/mL >3.99 48 Tick-Borne Panel 11/25/2017 [facility] Babesia Negative Negative PCR Blood [address] [place] [address] [phone] Babesia ducani Negative Negative Babesia divergens/Mo-1 Negative Negative 49 Anaplasma phagocytophilum Negative Negative Ehrlichia chaffeensis Negative Negative Ehrlichia ewingii/canis Negative Negative Ehrlichia muris-like Negative Negative 50 B. miyamotoi PCR, B Negative Negative 51 Laboratory test 11/25/2017 [facility] Cyclic Citrullinated < 15.6 U [address] Pep Igg [place], [place] [address] [phone] Aso (Antistreptolysin O) Titer 200 IU/mL IU/mL Abnormal <200 Iu/mL 53 Hla B27 11/25/2017 [facility] Hla B27 Negative [address] [place], [place] [address] [phone] Hla B27 Interp See Comment 55 Celiac Hla 11/25/2017 [facility] Hla-Dqa1 SEE BELOW [address] [place], [place] [address] [phone] Hla-DQB1 SEE BELOW 57 Celiac Gene Pairs Present? Yes Celiac Gene Interpretation See Comment 58 Celiac Panel 11/25/2017 [facility] Immunoglobulin A 266 mg/dL 61 - [address] [place] [address] [phone] Tissue Transglutaminase IgA Ab <1.2 U/mL 59 Celiac Interpretation See Comment 60 Protein 11/25/2017 [facility] Total 7.2 g/dL 6.3 - Electrophoresis [address] Protein(Pep) 7.9 [place] [address] [phone] Albumin 3.3 g/dL Abnormal 3.4-4.7 Alpha-1 Globulin 0.3 g/dL 0.1-0.3 Alpha-2 Globulin 1.0 g/dL 0.6-1.0 Beta Globulin 1.2 g/dL 0.7-1.2 Gamma Globulin 1.5 g/dL 0.6-1.6 Albumin/Globulin Ratio 0.84 Impression See Comment 61 Laboratory test 11/25/2017 [facility] Angiotensin 19 U/L 8 - 53 62 finding 101 [facility] [place] [place] [address] [phone] C Reactive Protein 12.87 mg/L High < 5.00 63 Erythrocyte Sed Rate 44 mm/Hr High 0-14 64 Anca AB Ser If 11/25/2017 [facility] C-Anca Negative Negative [address] [place] [address] [phone] P-Anca Negative Negative 65 Laboratory test 10/13/2017 [facility] Anti Nuclear 0.5 U [address] [place] [address] [phone] Erythrocyte Sed Rate 41 mm/Hr High 0-14 Anti Double Stranded Dna AB <12.3 IU/mL 67 Rheumatoid Factor <15 IU/mL <15 68 C Reactive Protein 17.85 mg/L High < 5.00 69 Creatine Kinase(CK) 56 U/L Normal 10-223 Lyme Disease Serology Negative Negative 70 Ssa/SSB Abs Igg 10/13/2017 [facility] SS-A/Ro Antibody <0.2 U [address] [place] [address] [phone] SS-B/La Antibody <0.2 U 72 Urinalysis Profile 10/05/2017 [facility] Urine Color Yellow [address] [place] [address] [phone] Urine Appearance Cloudy Urine Specific Dennison > 1.060 High 1.010-1.030 Urine pH 5.0 Normal 5-9 Urine [...] Present Abnormal Absent Urine Culture And 10/05/2017 [facility] Urine Culture SEE RESULT [address] [place] [address] [phone] Laboratory test 10/05/2017 [facility] Troponin-I 0.00 ng/mL < 0.[address] (TnI) [place] [address] [phone] Lyme Disease Serology Negative Negative 74 Inr/Protime 10/05/2017 [facility] Inr 0.90 Normal 0.77-1.[address] [place] [address] [phone] Laboratory test 10/05/2017 [facility] Partial 34.5 Normal 26.0 -36.[address] [place] [address] Time PTT [phone] Comp Metabolic 10/05/2017 [facility] Sodium 133 mmol/L Normal 133-[address] [place] [address] [phone] Potassium 3.8 mmol/L Normal 3.5-5.0 Chloride 102 mmol/L Normal 101-111 Co2 Carbon Dioxide 25 mmol/L Normal 22-32 Anion Gap 6 mmol/L Normal 2-11 Glucose 130 mg/dL High 70-100 Blood Urea Nitrogen 10 mg/dL Normal 6-24 Creatinine 0.64 mg/dL Normal 0.51-0.95 BUN/Creatinine Ratio 15.6 Normal 8-20 Calcium 8.9 mg/dL Normal 8.6-10.3 Total Protein 7.0 g/dL Normal 6.4-8.9 Albumin 3.9 g/dL Normal 3.2-5.2 Globulin 3.1 g/dL Normal 2-4 Albumin/Globulin Ratio 1.3 Normal 1-3 Total Bilirubin 0.40 mg/dL Normal 0.2-1.0 Alkaline Phosphatase 44 U/L Normal 34-104 Alt 19 U/L Normal 7-52 Ast 13 U/L Normal 13-39 Egfr Non- 103.9 >60 Egfr 133.6 >60 75 Laboratory test 10/05/2017 [facility] Creatine 64 U/L Normal 10-[address] Kinase(CK) [place] [address] [phone] Troponin-I (TnI) 0.01 ng/mL <0.04 HCG < 0.60 mIU/mL 76 CBC Auto 10/05/2017 [facility] White Blood 10.1 10^3/uL Normal 3.5-10.[address] [place] [address] [phone] Red Blood Count 4.92 10^6/uL Normal 4.0-5.4 Hemoglobin 11.7 g/dL Low 12.0-16.0 Hematocrit 36 % Normal 35-47 Mean Corpuscular Volume 73 fL Low 80-97 Mean Corpuscular Hemoglobin 24 pg Low 27-31 Mean Corpuscular HGB Conc 33 g/dL Normal 31-36 Red Cell Distribution Width 16 % High 10.5-15 Platelet Count 203 10^3/uL Normal 150-450 Mean Platelet Volume 9 um3 Normal 7.4-10.4 Abs Neutrophils 5.9 10^3/uL Normal 1.5-7.7 Abs Lymphocytes 3.4 10^3/uL Normal 1.0-4.8 Abs Monocytes 0.4 10^3/uL Normal 0-0.8 Abs Eosinophils 0.2 10^3/uL Normal 0-0.6 Abs Basophils 0.1 10^3/uL Normal 0-0.2 Abs Nucleated RBC 0 10^3/uL Granulocyte % 59.0 % Normal 38-83 Lymphocyte % 34.2 % Normal 25-47 Monocyte % 4.0 % Normal 1-9 Eosinophil % 1.9 % Normal 0-6 Basophil % 0.9 % Normal 0-2 Nucleated Red Blood Cells % 0 Laboratory test 10/05/2017 [facility] HCG < 0.60 mIU/ mL [address] [place] [address] [phone] Lactic Acid 1.1 mmol/L Normal 0.5-2.0 78 CKMB 10/05/2017 [facility] CKMB ng/mL 1.3 ng/mL Normal 0.6- 6.[address] [place] [address] [phone] Laboratory test 10/05/2017 [facility] Creatine 57 U/L Normal 10-[address] Kinase(CK) [place] [address] [phone] C Reactive Protein 18.03 mg/L High < 5.00 79 Troponin-I (TnI) 0.00 ng/mL <0.04 Comp Metabolic 10/05/2017 [facility] Sodium 137 mmol/L Normal 133-[address] [place] [address] [phone] Potassium 4.2 mmol/L Normal 3.5-5.0 Chloride 105 mmol/L Normal 101-111 Co2 Carbon Dioxide 26 mmol/L Normal 22-32 Anion Gap 6 mmol/L Normal 2-11 Glucose 104 mg/dL High 70-100 Blood Urea Nitrogen 9 mg/dL Normal 6-24 Creatinine 0.57 mg/dL Normal 0.51-0.95 BUN/Creatinine Ratio 15.8 Normal 8-20 Calcium 9.3 mg/dL Normal 8.6-10.3 Total Protein 7.2 g/dL Normal 6.4-8.9 Albumin 3.9 g/dL Normal 3.2-5.2 Globulin 3.3 g/dL Normal 2-4 Albumin/Globulin Ratio 1.2 Normal 1-3 Total Bilirubin 0.30 mg/dL Normal 0.2-1.0 Alkaline Phosphatase 46 U/L Normal 34-104 Alt 18 U/L Normal 7-52 Ast 12 U/L Low 13-39 Egfr Non- 118.7 >60 Egfr 152.7 >60 80 CBC Auto 10/05/2017 [facility] White Blood 10.2 10^3/uL Normal 3.5-10.8 Diff [address] [place] [address] [phone] Red Blood Count 5.03 10^6/uL Normal 4.0-5.4 Hemoglobin 12.1 g/dL Normal 12.0-16.0 Hematocrit 37 % Normal 35-47 Mean Corpuscular Volume 73 fL Low 80-97 81 Mean Corpuscular Hemoglobin 24 pg Low 27-31 Mean Corpuscular HGB Conc 33 g/dL Normal 31-36 Red Cell Distribution Width 16 % High 10.5-15 Platelet Count 214 10^3/uL Normal 150-450 Mean Platelet Volume 9 um3 Normal 7.4-10.4 Abs Neutrophils 6.4 10^3/uL Normal 1.5-7.7 Abs Lymphocytes 3.0 10^3/uL Normal 1.0-4.8 Abs Monocytes 0.6 10^3/uL Normal 0-0.8 Abs Eosinophils 0.2 10^3/uL Normal 0-0.6 Abs Basophils 0.1 10^3/uL Normal 0-0.2 Abs Nucleated RBC 0 10^3/uL Granulocyte % 62.1 % Normal 38-83 Lymphocyte % 29.4 % Normal 25-47 Monocyte % 5.5 % Normal 1-9 Eosinophil % 2.0 % Normal 0-6 Basophil % 1.0 % Normal 0-2 Nucleated Red Blood Cells % 0 Laboratory test 02/01/2017 [facility] Clotest SEE RESULT [address] [place] [address] [phone] Laboratory test 02/01/2017 [facility] Surgical SEE RESULT [address] [place] [address] [phone] Laboratory test 01/19/2017 [facility] TSH (Thyroid Stim 2.41 Normal 0.[address] Horm) mcIU/mL -5.6 [place] [address] [phone] Lipid Profile 01/19/2017 [facility] Triglycerides 143 mg/dL Normal 85 (Trig/Chol/HDL) DRIVE [place], [place] [address] [phone] Cholesterol 175 mg/dL Normal 86 HDL Cholesterol 35.5 mg/dL Normal 87 LDL Cholesterol 111 mg/dL Normal 88 Comp Metabolic 01/19/2017 [facility] Sodium 136 mmol/L Normal 133-[address] [place] [address] [phone] Potassium 4.1 mmol/L Normal 3.5-5.0 Chloride 104 mmol/L Normal 101-111 Co2 Carbon Dioxide 27 mmol/L Normal 22-32 Anion Gap 5 mmol/L Normal 2-11 Glucose 101 mg/dL High 70-100 Blood Urea Nitrogen 8 mg/dL Normal 6-24 Creatinine 0.64 mg/dL Normal 0.51-0.95 BUN/Creatinine Ratio 12.5 Normal 8-20 Calcium 9.0 mg/dL Normal 8.6-10.3 Total Protein 6.6 g/dL Normal 6.4-8.9 Albumin 3.7 g/dL Normal 3.2-5.2 Globulin 2.9 g/dL Normal 2-4 Albumin/Globulin Ratio 1.3 Normal 1-3 Total Bilirubin 0.50 mg/dL Normal 0.2-1.0 Alkaline Phosphatase 53 U/L Normal 34-104 Alt 20 U/L Normal 7-52 Ast 15 U/L Normal 13-39 Egfr Non- 104.4 Normal >60 Egfr 134.3 Normal >60 89 Urine Culture And 10/19/2016 [facility] Urine Culture SEE RESULT [address] [place] [address] [phone] Consistent with Previous Results Reported on 04/10/19 2 Because ethnic data is not always [...] 5 Kidney failure <15 (or dialysis) 3 Consistent with Previous Results Reported on 02/10/19. 4 Because ethnic data is not always [...] 5 Kidney failure <15 (or dialysis) 5 Test Performed by: [facility] [address] [place] [address] 6 Negative for cANCA and pANCA patterns by immunofluorescence. ADDITIONAL INFORMATION This test was developed and its performance characteristics determined by [facility] in a manner consistent with CLIA requirements. This test has not been cleared or approved by the U.S. Food and Drug Administration. Test Performed by: [facility] [employer] [facility] [place] [place] [address] 7 REFERENCE VALUE <=1.0 (Negative) 8 REFERENCE VALUE <20.0 (Negative) 9 Tests for antibodies to dsDNA and SADAF antigens are not performed automatically unless the BOGDAN result is > or = 3.0 U. Studies performed at [facility] indicate that positive BOGDAN results <3.0 U are rarely accompanied by positive second order tests. Test Performed by: [facility] [employer] - [facility] [address] [place] [address] 10 Test Performed by: [facility] [address] [place], [place] [address] Berto Paul M.D. Director of Laboratory 11 [id number] 12 SEE RESULT BELOW Name: PRESTON LEOPOLDO GALLEGOSA Home : [address]: Carmencita Petit MD Acct: [id number] Unit: [id number] AGE: 38 Location: [facility] Re08/23/18 SEX: F Status: REG REF SPEC: [id number] RAVEN: 08/23/18-[address]: Carmencita Petit MD REQ: [id number] RECD: 08/23/18 STATUS: COMP _ SOURCE: VAGINAL SPDESC: ORDERED: Marin,Yeast DNA COMMENTS: [id number] QUERIES: Would you like to order Trichomonas [...] . END OF REPORT DEPARTMENT OF PATHOLOGY, [address] [place] [address] Berto Paul M.D. Director [facility] # [id number] 13 Therapeutic target for the treatment of diabetes mellitus patients is <7% HBA1C, and in selective patients <6.0%. Please refer to [place] [employer] diabetic care guidelines for further information. 14 Because ethnic data is not always readily [...] 15-29 5 Kidney failure <15 (or dialysis) 15 [id number] 16 SEE RESULT BELOW Name: ANANYA FELICIANO : [address]: Bharti Bonner MD Acct: [id number] Unit: [id number] AGE: 38 Location: [facility] Re08/19/18 SEX: F Status: REG REF SPEC: [id number] RAVEN: 08/19/18-[address]: Bharti Bonner MD REQ: [id number] RECD: 08/19/18 STATUS: COMP _ SOURCE: URINE SPDESC: ORDERED: Urine Culture COMMENTS: [id number] Urine Source: Clean Catch Procedure Result Reported Site Urine Culture Final 08/20/18- 1604 ML No Growth (<1,000 CFU/mL) * ML - Main Lab . END OF REPORT DEPARTMENT OF PATHOLOGY, [address] [place] [address] Berto Paul M.D. Director [facility] # [id number] 17 Please check labs 2 days before follow up 18 Please check labs 2 days before follow up 19 Please check labs 2 days before follow up 20 Because ethnic data is not always [...] 5 Kidney failure <15 (or dialysis) 21 Consistent with Previous Results Reported on 10/12/17 22 [id number] ADDITIONAL INFORMATION This test was developed and its performance characteristics determined by [facility] in a manner consistent with CLIA requirements. This test has not been cleared or approved by the U.S. Food and Drug Administration. Test Performed by: [facility] [address] [place] [address] 24 Because ethnic data is not always readily [...] 15-29 5 Kidney failure <15 (or dialysis) 25 Please check labs 2 days before follow up 26 Please check labs 2 days before follow up 27 ADDITIONAL INFORMATION This test was developed and its performance characteristics determined by [facility] in a manner consistent with CLIA requirements. This test has not been cleared or approved by the U.S. Food and Drug Administration. 28 ADDITIONAL INFORMATION Testing performed by Inductively Coupled Plasma-Mass Spectrometry (ICP-MS). This test was developed and its performance characteristics determined by [facility] in a manner consistent with CLIA requirements. This test has not been cleared or approved by the U.S. Food and Drug Administration. 29 ADDITIONAL INFORMATION This test was developed and its performance characteristics determined by [facility] in a manner consistent with CLIA requirements. This test has not been cleared or approved by the U.S. Food and Drug Administration. 30 ADDITIONAL INFORMATION This test was developed and its performance characteristics determined by [facility] in a manner consistent with CLIA requirements. This test has not been cleared or approved by the U.S. Food and Drug Administration. [address] 32 Test Performed by: [facility] [address] [place] [address] 33 ADDITIONAL INFORMATION This test was developed and its performance characteristics determined by [facility] in a manner consistent with CLIA requirements. This test has not been cleared or approved by the U.S. Food and Drug Administration. Test Performed by: [facility] [address] [address] 34 Because ethnic data is not always readily [...] 15-29 5 Kidney failure <15 (or dialysis) 35 It is recognized that currently available assays for the detection of antibodies to HIV-1 and/or HIV-2 may not detect all infected individuals. HIV antibodies may be undetectable in some stages of the infection and in some clinical conditions. The performance of this assay has not been established for populations of infants or children. Assayed by Chemiluminescence Microparticle Immunoassay on the Siemens [employer] CP. Values obtained with different methods or kits cannot be used interchangeably.The diagnostic specificity of the [employer] Centaur 1/O/2 Enhanced assay in the low risk population was 99.90% (6052/6058) with a 95% confidence interval of 99.78 to 99.96%. 36 Normal Range 180 to 914 Indeterminate Range 145 to 180 Deficient Range <145 37 No evidence of antibodies to B. burgdorferi detected. False negative results may occur in recently infected patients (<=2 weeks) due to low or undetectable antibody levels to B. burgdorferi. If recent exposure is suspected, a second sample should be collected and tested in 2-4 weeks. Test Performed by: [facility] [address] [place] [address] 38 Please check 2 days before follow up UA ALREADY DONE CANCEL PER PT 39 Low risk: <1.00 Average risk: 1.00-3.00 High risk: >3.00 40 Acute inflammation: >10.00 41 Consistent with Previous Results Reported on 10/05/17 42 Because ethnic data is not always readily [...] 15-29 5 Kidney failure <15 (or dialysis) 43 *Ascorbic acid is present which may interfere with detection of blood. 44 SEE RESULT BELOW Name: ANANYA FELICIANO : [address]: Rodriguez Schaffer MD Acct: [id number] Unit: [id number] AGE: 37 Location: [facility] Re12/14/17 SEX: F Status: REG REF SPEC: [id number] RAVEN: 12/14/[address]: Rodriguez Schaffer MD REQ: [id number] RECD: 12/14/17 STATUS: [facility] DR: Carmencita Petit MD _ SOURCE: URINE SPDESC: ORDERED: Urine Culture Procedure Result Reported Site Urine Culture Final 12/15/17- 1425 ML Organism 1 STREP GROUP B [place] Count >100,000 (Many) CFU/ML Susceptibility testing of penicillins and other B-lactams approved by FDA for treatment of Streptococcus pyogenes (Group A Strep) and Streptococcus agalactiae (Group B Strep) is not necessary for clinical purposes and need not be done routinely, since as with vancomycin, resistant strains have not been recognized. (CLSI Q877-M06;p.66) Positive isolates will be saved for one week. Please call the Microbiology Laboratory if further susceptibility testing is needed. * - [facility] . END OF REPORT DEPARTMENT OF PATHOLOGY, [address] [place] [address] Berto Paul M.D. Director [facility] # [id number] 45 Please check labs this week 46 Please check labs this week 47 Normal Range 180 to 914 Indeterminate Range 145 to 180 Deficient Range <145 48 Please check labs this week 49 ADDITIONAL INFORMATION This test was developed and its performance characteristics determined by [facility] in a manner consistent with CLIA requirements. This test has not been cleared or approved by the U.S. Food and Drug Administration. 50 ADDITIONAL INFORMATION This test was developed and its performance characteristics determined by [facility] in a manner consistent with CLIA requirements. This test has not been cleared or approved by the U.S. Food and Drug Administration. 51 ADDITIONAL INFORMATION This test was developed and its performance characteristics determined by [facility] in a manner consistent with CLIA requirements. This test has not been cleared or approved by the U.S. Food and Drug Administration. Test Performed by: [facility] [address] [address] 52 REFERENCE VALUE <20.0 (Negative) Test Performed by: [address] [address] 53 Normal values may vary with age, season and geographic area. Titers above upper limits may be indicative of infection, however only a two dilution rise in titer is required to be considered significant. ASO titer will usually rise above upper limits within one week of exposure, increase to peak levels at 3-5 weeks and return to baseline level at 6-12 twelve months. 54 REFERENCE VALUE Not Applicable 55 RESULT: HLA-B27 antigen was not detected. ADDITIONAL INFORMATION Method: Flow Cytometry Performing Laboratory CLIA# [id number] Test Performed by: [address] [address] 56 RESULT: 02:01,05:01 REFERENCE VALUE Not Applicable 57 RESULT: 02:01,02:02 DQ Serologic Equivalent: 2,2 REFERENCE VALUE Not Applicable 58 These genes are permissive for celiac disease. The absence of HLA celiac permissive genes would make the presence of celiac disease unlikely. However, these genes can also be present in the normal population. ADDITIONAL INFORMATION Method: Molecular typing of HLA antigens performed using reverse SSOP and/or SSP methods, reported as serological equivalents and low to medium resolution molecular values. Performing Laboratory CLIA# [id number] Test Performed by: [address] [address] 59 REFERENCE VALUE <4.0 (Negative) Test Performed by: [address] [address] 60 Negative serology. Celiac disease unlikely. However, approximately 10% of patients with celiac disease are seronegative. Also, patients who are already adhering to a gluten-free diet may be seronegative. If celiac disease is highly clinically suspected, consider HLA-DQ typing. Test Performed by: [address] [address] 61 RESULT: No apparent monoclonal protein on serum electrophoresis. Test Performed by: [address] [address] 62 Test Performed by: [address] [address] 63 Acute inflammation: >10.00 64 Please check labs this week 65 Negative for cANCA and pANCA patterns by immunofluorescence. ADDITIONAL INFORMATION This test was developed and its performance characteristics determined by [facility] in a manner consistent with CLIA requirements. This test has not been cleared or approved by the U.S. Food and Drug Administration. Test Performed by: [address] [address] 66 REFERENCE VALUE <=1.0 (Negative) Test Performed by: [address] [address] 67 REFERENCE VALUE <30.0 (Negative) Test Performed by: [facility] [address] [place] [address] 68 Test Performed by: [address] [address] 69 Acute inflammation: >10.00 70 Serologic response to B. burgdorferi infection is not detected, but cannot rule out early infection during which low or undetectable antibody levels to B. burgdorferi may be present. If clinically indicated, a new serum specimen should be submitted in 7-14 days. Test Performed by: [facility] [address] [place] [address] 71 REFERENCE VALUE <1.0 (Negative) 72 REFERENCE VALUE <1.0 (Negative) Test Performed by: [facility] [address] [place] [address] 73 SEE RESULT BELOW Name: ANANYA FELICIANO : [address]: Ulises Bates MD Acct: [id number] Unit: [id number] AGE: 37 Location: ED Re10/05/17 SEX: F Status: DEP ER SPEC: [id number] RAVEN: 10/05/17 [facility] [address]: Ulises Bates MD REQ: [id number] RECD: 10/05/17 STATUS: VENUS [facility] DR: Carmencita Petit MD _ SOURCE: URINE SPDESC: ORDERED: Urine Culture Procedure Result Reported Site Urine Culture Final 10/07/17928 ML No growth of clinically significant organisms * ML - MAIN LAB ([facility]) . END OF REPORT * ML = Testing performed at Main Lab DEPARTMENT OF PATHOLOGY, [address] [place] [address] Berto Paul M.D. Director [facility] # [id number] 74 Serologic response to B. burgdorferi infection is not detected, but cannot rule out early infection during which low or undetectable antibody levels to B. burgdorferi may be present. If clinically indicated, a new serum specimen should be submitted in 7-14 days. Test Performed by: [facility] [address] [facility], [place] [address] 75 Because ethnic data is not always [...] levels of up to 20 mIU/mL 77 <5.0 Negative 5.0 - 25.0 Indeterminate (Repeat testing recommended after 72 hours) >25.0 Positive Perimenopausal women can display HCG levels of up to 20 mIU/mL 78 [facility] Severe Sepsis and Septic Shock Management Bundle Measure requires all lactic acids initially measuring >2.0 mmol/L be repeated. 79 Acute inflammation: >10.00 80 Because ethnic data is not always [...] 5 Kidney failure <15 (or dialysis) 81 Consistent with Previous Results Reported on 10/05/17. 82 SEE RESULT BELOW Name: ANANYA FELICIANO : [address]: Aurelio Paz MD Acct: [id number] Unit: [id number] AGE: 36 Location: ENDO Re02/01/17 SEX: F Status: REG REF SPEC: [id number] RAVEN: 02/01/17-12[address] [facility] [address]: Aurelio Paz MD REQ: [id number] RECD: 02/01/17-1310 STATUS: VENUS SMITH DR: Elena Willis MARK UP DESIGNER _ SOURCE: GAS ANTRUM SPDESC: ORDERED: Clotest Procedure Result Reported Site Clotest Final 02/02/17- 0757 ML Clotest Negative * ML - [facility] ([facility]) . END OF REPORT * ML = Testing performed at Main Lab DEPARTMENT OF PATHOLOGY, [address] [place] [address] Breto Paul M.D. Director [facility] # [id number] 83 SEE RESULT BELOW Name: ANANYA FELICIANO : [address]: Aurelio Paz MD Acct: [id number] Unit: [id number] AGE: 36 Location: ENDO Re02/01/17 SEX: F Status: DEP REF SPEC: [id number] RAVEN: 02/01/17- SUBM DR: Aurelio Paz MD REQ: [id number] RECD: 02/01/17-1325 STATUS: CHIDI SMITH DR: Elena Willis MARK UP DESIGNER _ ORDERED: LEVEL 4 FINAL DIAGNOSIS Duodenum, [...] Cho MD 1053 END OF REPORT * ML = Testing performed at Main Lab DEPARTMENT OF PATHOLOGY, [address] [place] [address] Berto Paul M.D. Director [facility] # [id number] 84 FASTING 10 HOUR 85 Desirable <150 Borderline high 150-199 High 200-499 Very High >500 86 Desirable <200 Borderline high 200-239 High >239 87 Low <40 Desirable: 40-60 High: >60 88 Desirable: <100 mg/dL Near Optimal: 100-129 mg/dL Borderline High: 130-159 mg/dL High: 160-189 mg/dL Very High: >189 mg/dL 89 Because ethnic data is not always readily [...] 15-29 5 Kidney failure <15 (or dialysis) 90 SEE RESULT BELOW Name: ANANYA FELICIANO : [address]: Carmencita Petit MD Acct: [id number] Unit: [id number] AGE: 36 Location: [facility] Re10/19/16 SEX: F Status: REG REF SPEC: [id number] RAVEN: 10/19/16-5[address] [facility] [address]: Carmencita Petit MD REQ: [id number] RECD: 10/19/16 STATUS: COMP _ SOURCE: URINE SPDESC: ORDERED: Urine Culture COMMENTS: [id number] Urine Source: Random Procedure Result Reported Site Urine Culture Final 10/21/16833 ML No growth of clinically significant organisms * ML - MAIN LAB ([facility]) . END OF REPORT * ML = Testing performed at Main Lab DEPARTMENT OF PATHOLOGY, [address] [place] [address] Berto Paul M.D. Director [facility] # [id number] Procedures Date Code Description Status 10/07/2018 95732 Nerve Conduction 07-08 Studies Completed 10/07/2018 01511 Needle Electromyography Each Extremity W/Related Completed Paraspinal Areas 09/26/2018 49859 Inhalation [place] For Acute Airway Obstruction Completed W/Nebulizer/Inhaler 05/04/2018 76067 Nerve Conduction 07-08 Studies Completed 05/04/2018 14812 Needle Electromyography Complete, Five Or More Muscles Completed Studied 05/04/2018 10820 Needle Electromyography Each Extremity W/Related Completed Paraspinal Areas 01/27/2018 08475 Diffusing Capacity Completed 01/27/2018 12722 Plethysmography Determination Lung Volumes & Per Airway Completed Resist 01/27/2018 95434 Pulmonary Function><Bronchodil Completed 01/19/2018 03415 Sleep Study Unattended,HRT Rate,Oxygen Sat,Resp Completed Effort/Airflow 10/19/2017 73690 Stress Test Completed 10/23/2016 80663 Anoscopy Completed 10/13/2016 75673122 Colonoscopy Completed Encounters Type Date Location Provider Dx Diagnosis Office Visit 04/18/2019 Rheumatology Henry Ponce6.4 Inflammatory 3:00p [facility] Wilson 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 R79.82 Elevated C-reactive protein (CRP) R70.0 Elevated erythrocyte sedimentation rate R20.8 Other disturbances of skin sensation Office Visit 08/23/2018 9:50a [facility] Internal Carmencita R30.0 Dysuria Guera Petit M.D. R10.10 Upper abdominal pain, unspecified N92.6 Irregular menstruation, unspecified R73.01 Impaired fasting glucose N76.0 Acute vaginitis Office Visit 08/19/2018 DoNotUse [facility] Internal Bharti Bonner, N39.0 Urinary tract 11:00a [...] R70.0 Elevated erythrocyte sedimentation rate Z79.899 Other terminal press operator (current) drug therapy D64.9 Anemia, unspecified M25.552 Pain in left hip Office Visit 04/05/2018 DoNotUse [facility] Internal Carmencita Z00.00 Encntr for 9:10a Guera Petit M.D. general adult medical exam w/o abnormal findings R20.2 Paresthesia of skin R73.01 Impaired fasting glucose Office Visit 02/12/2018 9:15a Pulmonology And Marie G47.33 Obstructive sleep Sleep Services Of [place] Bill apnea (adult) [facility] (pediatric) J45.909 Unspecified asthma, uncomplicated E66.01 Morbid (severe) obesity due to excess calories Office Visit 01/26/2018 DoNotUse [facility] Internal Carmencita R73.01 Impaired 11:50a Guera Petit M.D. fasting glucose R51 Headache Office Visit 01/18/2018 Rheumatology Rodriguez M06.4 Inflammatory 9:40a Services Of St[facility] Schaffer M.D. polyarthropathy R70.0 Elevated erythrocyte sedimentation rate Z79.899 Other residential (current) drug therapy M54.5 Low back pain D64.9 Anemia, unspecified Office Visit 01/12/2018 8:30a Pulmonology And Sleep Marie Bill, R06.83 Snoring Services Of [facility] J45.20 Mild intermittent asthma, uncomplicated E66.01 Morbid (severe) obesity due to excess calories Z68.42 Body mass index (BMI) 45.0-49.9, adult Office Visit 12/14/2017 Rheumatology Rodriguez M06.4 Inflammatory 1:40p Services Of [facility] Schaffer M.D. polyarthropathy R70.0 Elevated erythrocyte sedimentation rate M54.5 Low back pain Z79.899 Other terminal press operator (current) drug therapy R31.9 Hematuria, unspecified Office Visit 11/25/2017 9:00a Rheumatology Services Rodriguez Schaffer M79.1 Myalgia Of Stacey Wilson R70.0 Elevated erythrocyte sedimentation rate M54.5 Low back pain M06.4 Inflammatory polyarthropathy R20.8 Other disturbances of skin sensation G56.03 Carpal tunnel syndrome, bilateral upper limbs R06.83 Snoring Office Visit 10/13/2017 DoNotUse [facility] Internal Carmencita M25.50 Pain in 10:10a Guera Petit M.D. unspecified joint Office Visit 10/06/2017 DoNotUse [facility] Camille Tse R07.89 Other chest pain 8:30a Guera Petit M.D. M79.1 Myalgia Office Visit 01/15/2017 2:20p [facility] Internal Elena Willis, F32.9 Major depressive Medicine - N.P. disorder, single Ccmob episode, unspecified E78.00 Pure hypercholesterolemia, unspecified Office Visit 10/23/2016 8:45a Surgical Christian Barrios K64.8 Other hemorrhoids [facility] Geller M.D. D50.0 Iron deficiency anemia secondary to blood loss (chronic) R10.30 Lower abdominal pain, unspecified Office Visit 10/19/2016 DoNotUse [facility] Internal Carmencita K64.8 Other 11:50a Guera Petit M.D. hemorrhoids D50.0 Iron deficiency anemia secondary to blood loss (chronic) R10.30 Lower abdominal pain, unspecified B34.9 Viral infection, unspecified Office Visit 10/14/2016 [facility] Elias K92.2 Gastrointestinal 2:42p [facility] [place] M.D. hemorrhage, Hospitalists unspecified F32.9 Major depressive disorder, single episode, unspecified Office Visit 10/12/2016 [facility] Cyndy K92.2 Gastrointestinal 2:41p Assoc,[facility] Espinoza D.O. hemorrhage, Hospitalists unspecified F32.9 Major depressive disorder, single episode, unspecified Office Visit 09/28/2012 2:45p Orthopedic Teodoro Burrell, 836.0 Dislocation Knee Services Of M.D. Tear Of Medial C.M.A. Cartilage Or Meniscus Curren Office Visit 09/12/2012 2:00p Orthopedic Teodoro Burrell, 836.0 Dislocation Knee Services Of M.DZachary Tear Of Medial C.M.A. Cartilage Or Meniscus Curren 727.51 Cyst Synovial Popliteal Space Office Visit 11/25/2010 1:00p Orthopedic Chaim Lundberg, 845.00 Sprains & Services Of C.M.A. MMichaela Strains Ankle Unspec Site Plan of Treatment Future Appointment(s):05/10/2019 4:00 pm - Rodriguez Schaffer M.D. at Rheumatology Services Of [facility]10/17/2019 10:00 am - Royal Arizmendi M.D. at [place] [facility]04/18/2019 - Rodriguez Schaffer M.D.M06.4 Inflammatory cxggomqxgcpyscdZ43.82 Elevated C-reactive protein (CRP)R70.0 Elevated erythrocyte sedimentation rateZ79.899 Other residential (current) drug therapyNew Medication:Zoloft 100 mg - 1 1/2 by mouth every dayComments:Stop SdvhgukvtqckZ58.81 Muscle weakness (generalized)New Xrays:MRI Brain W/O, Ordered : 04/18/19Referral:Royal Arizmendi MD, NeurologyFollow up:Follow up in 3 to 4 weeks or sooner if needed
--- OUTSIDE RECORDS SUMMARY | 2019-06-06 08:23 | XMS REPORT | Continuity of Care Document ---
:1980 External Reference #:[id number] Author Name PORTILLO Rivas (transmitted by agent of provider Courtney Cuba) Address [address], [place] [address] Care Team Providers Name Role Phone Carmencita Petit MD - Internal Care Team Information Research And Evaluation Manager Medicine Problems Active Problems Provider Date Depressive [...] for Unknown 11 years Smoking Status Reviewed: 04/28/19 Former Cigarette Smoker Smoked 3/4 ppd for [...] Sulfate four times a day 90ml J45.901 [facility] Marisabel, 09/26/2018 as needed M.D. (2.5mg/3ML) 0.083% Nebulizer Onetouch Ultra Blue test twice a day 100units R73.01 Carmencitaleydi Petit, 01/26 and as needed M.D. Strips Ventolin HFA 1 unit puff every 8gm J45.20 Marie Khan, 01/12/2018 6 hours as needed 108(90Base) mcg/Act Aerosol Wrist Splint use nightly to 2units G56.03 Rodriguez Schaffer, [facility] discomfort in the right and left hand History Medications Gabapentin take one 30caps Rodriguez Schaffer, 04/13/2019 - 300mg capsule/tablet by M.DZachary 04/18/2019 Capsules mouth at night for 1 week then 1 twice daily ongoing Prednisone Every Day Unknown 04/10/2019 - 20mg Tablets 04/27/2019 Methotrexate Sodium Weekly Unknown 04/08/2019 - 04/18/2019 2.5mg Tablets Valium Bedtime 3tabs Unknown 04/08/2019 - 5mg Tablets 04/18/2019 Methotrexate take 4 30tabs Rodriguez Schaffer, 03/30/2019 - 2.5mg capsules/tablets by M.DZachary 04/18/2019 Tablets mouth once weekly on Folic Acid take one 90tabs Rodriguez Schaffer, 03/30/2019 - 1mg Tablets capsule/tablet daily M.DZachary 04/27/2019 by mouth Immunizations CPT Code Status Date Vaccine Lot # [id number] Refused 10/06/2017 Influenza Virus Vaccine, Quadrivalent, Split, Preservative Free Vital Signs Date Vital Result Comment 04/28/2019 11:12am Height 63 inches 5'3" Weight 268.00 lb Heart Rate 74 /min BP Systolic Sitting 124 mmHg BP Diastolic Sitting 90 mmHg Respiratory Rate 18 /min Body Temperature 99.1 F BMI (Body Mass Index) 47.5 kg/m2 04/18/2019 3:35pm Height 63 inches 5'3" Weight 272.50 lb Heart Rate 115 /min BP Systolic Sitting 124 mmHg BP Diastolic Sitting 86 mmHg Pain Level 6 O2 % BldC Oximetry 98 % BMI (Body Mass Index) 48.3 kg/m2 Results Test Date Facility Test Result H/L Range Note Iron & Iron Binding 04/26/2019 [facility] [place] Iron 33 g/dL Low 50-[address] [place] [address] [phone] Unsaturated Iron Binding < 451 g/dL Total Iron Binding Capacity 466 g/dL High 250-450 Transferrin 333 mg/dL Normal 203-362 % Iron Saturation 7 % Low 15-55 Vitamin B12 04/26/2019 [facility] [place] Vitamin B12 334 pg/mL Normal 180-914 [address] [place] [address] [phone] Folic Acid (Folate) 18.08 ng/mL >3.99 Laboratory test 04/26/2019 [facility] [place] Ferritin 21.0 Normal 11- [address] ng/[place] [address] [phone] Laboratory test 04/14/2019 [facility] [place] Erythrocyte Sed 31 mm/Hr High 0-[address] [place] [address] [phone] C Reactive Protein 11.99 mg/L High <8.01 CBC Auto 04/14/2019 [facility] [place] White Blood 13.7 10^3/uL High 3.5-10.[address] [place] [address] [phone] Red Blood Count 4.59 10^6/uL Normal 3.70-4.87 Hemoglobin 10.7 g/dL Low 12.0-16.0 Hematocrit 33 % Low 35-47 Mean Corpuscular Volume 72 fL Low 80-97 2 Mean Corpuscular Hemoglobin 23 pg Low 27-31 [...] Blood Cells % 0.1 Comp Metabolic 04/14/2019 [facility] [place] Sodium 139 mmol/L Normal 135-[address] [place] [address] [phone] Potassium 4.2 mmol/L Normal 3.5-5.0 Chloride 104 [...] Egfr Non- 88.8 >60 Egfr 107.4 >60 3 Laboratory test 04/10/2019 [facility] [place] C Reactive 8.82 mg/L High <8.[address] [place] [address] [phone] Comp Metabolic 04/10/2019 [facility] [place] Sodium 135 Normal 135- [address] mmol/L [place], [place] [address] [phone] Potassium 4.4 mmol/L Normal 3.5-5.0 Chloride 101 [...] Non- 103.3 >60 Egfr 125.0 >60 4 CBC Auto 04/10/2019 [facility] [place] White Blood 11.2 10^3/uL High 3.5-10.[address] [place] [address] [phone] Red Blood Count 5.05 10^6/uL High 3.70-4.87 [...] % Nucleated Red Blood Cells % 0.0 Laboratory test 12/28/2018 [facility] [place] C Reactive 15.67 mg/L High <8.[address] [place] [address] [phone] Erythrocyte Sed Rate 32 mm/Hr High 0-19 Laboratory test 10/31/2018 [facility] [place] C Reactive 11.13 mg/L High <8.[address] [place] [address] [phone] Erythrocyte Sed Rate 44 mm/Hr High 0-20 6 Connective Tissue 10/31/2018 [facility] [place] Anti-Nuclear Antibody 0.6 U 7 Panel [address] [place] [address] [phone] Cyclic Citrullinated Peptide <15.6 U 8 Interpretation See Comment 9 Anca AB Ser If 10/31/2018 [facility] [place] C-Anca Negative Negative [address] [place] [address] [phone] P-Anca Negative Negative 10 Laboratory test 10/31/2018 [facility] [place] Immunoglobulin E 6.3 kU/L <= 214 11 finding 101 [facility] ([facility]ge) [place] [address] [phone] 1 Normal Range 180 to 914 Indeterminate Range 145 to 180 Deficient Range <145 2 Consistent with Previous Results Reported on 04/10/19 3 Because ethnic data is not always readily [...] 15-29 5 Kidney failure <15 (or dialysis) 4 Because ethnic data is not always [...] 5 Consistent with Previous Results Reported on 02/10/19. 6 Test Performed by: [facility] [address] [place] [id number] Berto Paul M.D. Director of Laboratory 7 REFERENCE VALUE <=1.0 (Negative) 8 REFERENCE VALUE <20.0 (Negative) 9 Tests for antibodies to dsDNA and SADAF antigens are not performed automatically unless the BOGDAN result is > or = 3.0 U. Studies performed at [facility] indicate that positive BOGDAN results <3.0 U are rarely accompanied by positive second order tests. Test Performed by: [facility] [address] [place] [address] 10 Negative for cANCA and pANCA patterns by immunofluorescence. ADDITIONAL INFORMATION This test was developed and its performance characteristics determined by [facility] in a manner consistent with CLIA requirements. This test has not been cleared or approved by the U.S. Food and Drug Administration. Test Performed by: [facility] [address] [place] [address] 11 Test Performed by: [facility] [address] [place] [address] Procedures Date Code Description Status 10/13/2016 [id number] Colonoscopy Completed Medical Devices Description No Information Available Encounters Type Date Location Provider Dx Diagnosis Office Visit 04/28/2019 Neurosurgery Karlos Clark, G99.2 Myelopathy in 11:00a Services Of Stacey NATH diseases classified elsewhere Office Visit 04/18/2019 Rheumatology Henry Ponce6.4 Inflammatory 3:00p Services Of St[facility] Wilson polyarthropathy R79.82 Elevated C-reactive protein (CRP) R70.0 Elevated erythrocyte sedimentation rate Z79.899 Other exterminator helper termite (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 polyarthropathy R79.82 Elevated C-reactive protein (CRP) R70.0 Elevated erythrocyte sedimentation rate Z79.899 Other correction (current) drug therapy Office Visit 12/28/2018 Rheumatology [...] left foot Assessments Date Code Description Provider 04/28/2019 G99.2 Spinal stenosis in cervical region PORTILLO Rivas 04/18/2019 M06.4 Inflammatory polyarthropathy Rodriguez Schaffer M.D. 04/18/2019 R79.82 Elevated C-reactive protein (CRP) Rodriguez Schaffer M.D. 04/18/2019 R70.0 Elevated erythrocyte sedimentation rate Rodriguez Schaffer M.D. 04/18/2019 Z79.899 Other correction (current) drug therapy Rodriguez Schaffer M.D. 04/18/2019 M62.81 Muscle weakness (generalized) Rodriguze Schaffer M.D. 03/30/2019 M06.4 Inflammatory polyarthropathy Rodriguez Schaffer M.D. 03/30/2019 R79.82 Elevated C-reactive protein (CRP) Rodriguez Schaffer M.D. 03/30/2019 R70.0 Elevated erythrocyte sedimentation rate Rodriguez Schaffer M.D. 03/30/2019 Z79.899 Other exterminator helper termite (current) drug therapy Rodriguez Schaffer M.D. 12/28/2018 M06.4 Inflammatory polyarthropathy Rodriguez Schaffer M.D. 12/28/2018 R79.82 Elevated C-reactive protein (CRP) Rodriguez Schaffer M.D. 12/28/2018 R70.0 Elevated erythrocyte sedimentation rate Rodriguez Schaffer M.D. 12/28/2018 M25.572 Pain in left ankle and joints of left foot Rodriguez Schaffer M.D. 11/03/2018 M06.4 Inflammatory polyarthropathy Rodriguez Schaffer M.D. 11/03/2018 R79.82 Elevated C-reactive protein (CRP) Rodriguez Schaffer M.D. 11/03/2018 R70.0 Elevated erythrocyte sedimentation rate Rodriguez Schaffer M.D. 11/03/2018 M25.572 Pain in left ankle and joints of left foot Rodriguez Schaffer M.D. Plan of Treatment Future Appointment(s):05/31/2019 3:30 pm - PORTILLO Rivas at [facility]surgery [facility]05/10/2019 4:00 pm - Rodriguez Schaffer M.D. at Rheumatology [facility]10/17/2019 10:00 am - Royal Arizmendi M.D. at [facility]04/28/2019 - Karlos Clark, PAG99.2 Myelopathy in diseases classified elsewhereFollow up:RTC in 4 -5 weeks Functional Status Description No Information Available Mental Status Description No Information Available Referrals Refer to Reason for Referral Status Appt Date Anamika Elena MD please evaluate and treat patient with Scheduled 05/03/2019 asymmetric upper extremity weakness now extruded paracentral disc associated severe cervical neural foraminal stenosis [address] [facility] [place] [address] [phone] Royal Arizmendi MD Please evaluate patient with new onset left upper Sent extremity weakness, history of an inflammatory arthropathy [address] [place] [address] [place] [address] [phone]
[2019-06-06 08:28] VITALS: BP 139/85
--- NOTE | 2019-06-06 09:19 | UC ---
Eye Complaint HPI - HPI Summary HPI Summary: 4 DAYS OF EYE REDNESS AND IRRITATION WITH EYELID SWELLING. STARTED IN LEFT EYE AND NOW IS IN BOTH EYES. HAD CRUST THIS MORNING. NO VISUAL DISTURBANCE. WEARS DISPOSABLE CONTACT LENSES DAILY BUT ALWAYS TAKES THEM OUT TO SLEEP. CHANGES THEM ABOUT EVERY 6 WEEKS. HAS BEEN WEARING THE CURRENT PAIN FOR 2-3 WEEKS. NO PHOTOPHOBIA OR FB SENSATION. - History of Current Complaint Chief Complaint: UCEye Stated Complaint: EYE IRRITATION Time Seen by Provider: 06/06/19 09:18 Hx Obtained From: Patient Hx Last Menstrual Period: 05/22/19 Onset/Duration: Gradual Onset, Lasting Days, Still Present Timing: Constant Severity Initially: Moderate Severity Currently: Moderate Pain Intensity: 4 Pain Scale Used: 0-10 Numeric Aggravating Factor(s): Nothing Alleviating Factor(s): Nothing Associated Signs And Symptoms: Negative: Photophobia, Vision Impairment Bilateral - Allergies/Home Medications Allergies/Adverse Reactions: Allergies Allergy/AdvReac Type Severity Reaction Status Date / Time cephalexin [From Keflex] Allergy Hives Verified 06/06/19 08:28 Sulfa (Sulfonamide Allergy Hives Verified 06/06/19 08:28 Antibiotics) codeine AdvReac Nausea And Verified 06/06/19 08:28 Vomiting Home Medications: Home Medications Ciprofloxacin 0.3% OPTH.SENIA* [Cipro 0.3% Opth*] 1 drop BOTH EYES TID 06/06/19 [ History Confirmed 06/06/19] Tobramycin 0.3% OPHTH.SENIA* 1 drop BOTH EYES TID 06/06/19 [History Confirmed ] PMH/Surg Hx/FS Hx/Imm Hx Endocrine History: Diabetes Respiratory History: Asthma Psychological History: Depression - Surgical History Surgical History: Yes Surgery Procedure, Year, and Place: lap diamond, tubes in ears - Family History Known Family History: Positive: Unknown - Pt states she is "adopted" - Social History Alcohol Use: Occasionally Substance Use Type: None Smoking Status (MU): Former Smoker Type: Cigarettes Length of Time of Smoking/Using Tobacco: 12 yrs Have You Smoked in the Last Year: No When Did the Patient Quit Smoking/Using Tobacco: 2013 - Immunization History Most Recent Influenza Vaccination: DECLINES Most Recent Tetanus Shot: unsure, will offer Most Recent Pneumonia Vaccination: never Review of Systems All Other Systems Reviewed And Are Negative: Yes Constitutional: Positive: Negative Eyes: Positive: Drainage, Eye Redness Respiratory: Positive: Negative Cardiovascular: Positive: Negative Gastrointestinal: Positive: Negative Physical Exam Triage Information Reviewed: Yes Appearance: Well-Appearing, No Pain Distress, Well-Nourished Vital Signs: Initial Vital Signs Temp 98.1 F 06/06/19 08:22 Pulse 78 06/06/19 08:22 Resp 18 06/06/19 08:22 BP 139/85 06/06/19 08:22 Pulse Ox 97 06/06/19 08:22 Vital Signs Reviewed: Yes Eyes: Positive: Conjunctiva Inflamed - BILATERAL, Other: - PERRL, EOMI, MILD BILATERAL EYELID EDEMA. Negative: Discharge ENT: Positive: Hearing grossly normal Neck: Positive: Supple Respiratory: Positive: No respiratory distress, No accessory muscle use Cardiovascular: Positive: Pulses Normal Abdomen Description: Positive: Soft Musculoskeletal: Positive: No Edema Neurological: Positive: Alert Psychological: Positive: Age Appropriate Behavior Skin: Negative: Rashes Eye Complaint Course/Dx - Course Course Of Treatment: CONCERN FOR CONTACT LENS ASSOCIATED KERATITIS. PATIENT WILL GO DIRECTLY TO OPHTHALMOLOGY FROM HERE FOR FURTHER EVALUATION. - Differential Dx/Diagnosis Provider Diagnosis: Keratitis Discharge ED - Sign-Out/Discharge Documenting (check all that apply): Patient Departure All imaging exams completed and their final reports reviewed: No Studies - Discharge Plan Condition: Stable Disposition: HOME Patient Education Materials: Keratitis (ED) Referrals: Lior Llanes MD [Medical Doctor] - (GO DIRECTLY TO THE PEDIATRIC LPN FROM HERE FOR FURTHER EVALUATION. THEY ARE EXPECTING YOU.) Carmencita Petit MD [Primary Care Provider] - If Needed Additional Instructions: I AM CONCERNED FOR KERATITIS GIVEN YOUR DAILY CONTACT LENS USE. I HAVE ARRANGED FOR YOU TO BE SEEN BY THE PEDIATRIC LPN'S OFFICE TODAY. GO DIRECTLY ACROSS THE STREET FROM HERE FOR FURTHER EVALUATION. Contact lens wear may increase the risk of infectious keratitis by several mechanisms: Altering and causing a breakdown of the natural protective barriers of the ocular surface and tear film (eg, hypoxia, epithelial abrasions, and tear stagnation) Providing a nidus for entrapment of microorganisms within the micropores of the oxygen-permeable polymers and the formation of microbial biofilms on the lens surfaces Contact lenses, storage cases, and disinfecting solutions may become contaminated through careless handling and poor hygienic habits of the user. Symptoms and signs of infectious keratitis usually begin within 24 hours of infection. The most common presenting features include: - Red eye (conjunctival vascular injection) - Reduced visual acuity (especially if the central cornea is involved) - Pain - Eyelid swelling - Photophobia - Corneal epithelial defect - Billing Disposition and Condition Condition: STABLE Disposition: Home
== END 2019-06-06 10:10 | disposition home or self-care (01) ==
LOC: UCEAST 08:17
DX: H16.9 Unspecified keratitis (principal); E11.9 Type 2 diabetes mellitus without complications; J45.909 Unspecified asthma, uncomplicated; F32.9 Major depressive disorder, single episode, unspecified; Z87.891 Personal history of nicotine dependence; Z88.5 Allergy status to narcotic agent; Z88.2 Allergy status to sulfonamides
CPT/HCPCS: 99201; G0463

== ENCOUNTER 2019-07-11 05:42 | Observation (INO) | payer BC ==
[~2019-07-11 05:42] MED LIST: Acetaminophen TAB* 325 MG PO ONE; Buffered Lidocaine 1% SYRIN* 1 ML/SYRINGE INTRADERM ONE; Gabapentin CAP(*) 300 MG PO ONE; Lactated Ringers 1000 ML Bag* 1,000 ML IV SCH
[2019-07-11] MEDS ORDERED: Famotidine IV* 10 MG/ML 2 ML (20 mg) IV ONE (06:00)
[2019-07-11] MEDS ORDERED: Lactated Ringers 1000 ML Bag* 1,000 ML IV SCH (06:00)
[2019-07-11] MEDS ORDERED: Vancomycin(*) 2,000 MG in NS 0.9% 500 ML* 500 ML IVPB ONE (06:00)
[2019-07-11] MEDS ORDERED: DiMENhydriNATE IV* 50 MG/ML VIAL IV PUSH ONE (06:00)
[2019-07-11] MEDS ORDERED: Famotidine IV* 10 MG/ML 2 ML (20 mg) ONE (06:23)
[2019-07-11] MEDS ORDERED: Buffered Lidocaine 1% SYRIN* 1 ML/SYRINGE INTRADERM ONE (06:23)
[2019-07-11] MEDS ORDERED: DiMENhydriNATE IV* 50 MG/ML VIAL ONE (06:23)
[2019-07-11] MEDS ORDERED: Bacitracin INJECTION* 50,000 UNITS ONE (07:05)
[2019-07-11] MEDS ORDERED: Bupivacaine 0.25% SDV PF* 10 ML VIAL INJ ONE (07:05)
[2019-07-11] MEDS ORDERED: fentaNYL* 50 MCG/ML 2 ML VIAL (100 MCG VIAL) ONE ×6 (07:09→13:52)
[2019-07-11] MEDS ORDERED: Midazolam* 1 MG/ML 5 ML VIAL (5 MG) ONE (07:09)
[2019-07-11] MEDS ORDERED: Remifentanil* 2 MG VIAL ONE ×2 (07:09→09:39)
[2019-07-11] MEDS ORDERED: Propofol* 10 MG/ML 20 ML BTL ONE (07:10)
[2019-07-11] MEDS ORDERED: Lidocaine 2% PF * 5 ML VIAL ONE (07:10)
[2019-07-11] MEDS ORDERED: Succinylcholine* 20 MG/ML 10 ML VIAL ONE (07:10)
[2019-07-11] MEDS ORDERED: Lidocaine 1% w EPI 1:200,000* SDV 30 ML VIAL ONE (07:31)
[2019-07-11] MEDS ORDERED: Propofol* 500 MG/50 ML BTL ONE ×2 (08:37→10:27)
[2019-07-11] MEDS ORDERED: EPHEDrine (Pressors)* 50 MG/ML VIAL ONE (08:45)
[2019-07-11] MEDS ORDERED: Dexamethasone IV* 4 MG/ML 1 ML (4 MG) ONE (09:01)
[2019-07-11] MEDS ORDERED: Ondansetron INJ* 2 MG/ML VIAL ONE (10:37)
[2019-07-11] MEDS ORDERED: Magnesium Hydroxide LIQ* 30 ML UDC PO PRN (11:49)
[2019-07-11] MEDS ORDERED: oxyCODONE TAB* 5 MG TAB PO PRN ×2 (11:49→17:29)
[2019-07-11] MEDS ORDERED: Ondansetron INJ* 2 MG/ML VIAL IV PRN (11:49)
[2019-07-11] MEDS ORDERED: HYDROcodone/ACETAMIN 5-325 MG* 1 TAB PO PRN (11:50)
[2019-07-11] MEDS ORDERED: oxyCODONE/Acetamin 5/325 MG* TAB PO PRN (11:50)
[2019-07-11] MEDS ORDERED: PROCHLORPERAZINE INJ 5 MG/ML 2 ML VIAL IV PRN (11:50)
[2019-07-11] MEDS ORDERED: Naloxone* 0.4 MG/ML 1 ML VIAL IV PRN (11:50)
[2019-07-11] MEDS: fentaNYL* 50 MCG/ML 2 ML VIAL (100 MCG VIAL) IV PRN ×5 (11:54→13:55)
[2019-07-11] MEDS ORDERED: oxyCODONE/Acetamin 5/325 MG* TAB ONE (13:09)
[2019-07-11] MEDS ORDERED: HYDROmorphone INJ* 0.5 MG/0.5 ML SYRINGE IV SLOW PU PRN (14:33)
[2019-07-11] MEDS ORDERED: Dextrose 50% VIAL 50 ml IV PUSH PRN (14:53)
[2019-07-11] MEDS: Lactated Ringers 1000 ML Bag* 1,000 ML IV SCH (15:39)
--- NOTE | 2019-07-11 15:47 | OP ---
DATE OF OPERATION: 07/11/19 - ROOM #341 DATE OF : 78 SURGEON: Anamika Elena MD. VAULT ATTENDANT: Karlos Clark, surgical PA. The case was done with the assistance of surgical PA because of the complexity of the case. ANESTHESIA: General. PRE-OP DIAGNOSES: 1. Degenerative disk disease. 2. 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 POST-OP DIAGNOSES: 1. Degenerative disk disease. 2. 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 OPERATIVE PROCEDURE: The patient underwent anterior cervical diskectomy and fusion at C5-6 with PEEK interbody cage, autologous local bone graft DBX, plate and screws with intraoperative electrophysiological monitoring. ESTIMATED BLOOD LOSS: 10 cc. COMPLICATIONS: None. SUMMARY: The patient is a very pleasant 38-year-old female with complaints of left upper extremity weakness with occasional episodes of numbness in the left side of her body with MRI findings consistent with a large left C5-6 disk herniation. After failing conservative treatment modalities, she was offered the option of surgical intervention in the form of an anterior cervical diskectomy and fusion. After explaining the expectations, limitations, and possible complications of the procedure to the patient and her with complications including, but not limited to bleeding, infection, risk of injury to adjacent structures, coma, paralysis, , need for additional procedures, anesthesia risks, stroke, blindness, cancer, instability, hardware failure, adjacent level disease, pseudoarthrosis, spinal fluid leak, injury to the recurrent laryngeal nerve, Carlitos syndrome, injury to the esophagus or trachea, need for gastrostomy or tracheostomy, need for prolonged ICU stay, hospitalization, and prolonged rehabilitation, the patient was agreeable to proceed with surgery and informed consent was obtained. The patient understood that her condition may not improve and in fact may get worse after surgery and that she may need to have additional procedures in the future. She also understood that operative plan may be modified according to intraoperative findings and conditions and the case may be abandoned or done in more than 1 stages and that she may require hospitalization, prolonged ICU stay, or prolonged rehabilitation. DESCRIPTION OF PROCEDURE: The patient was brought to the operating room and was placed under general anesthesia by the anesthesia team. She was carefully positioned supine on the Joao table and all bony prominences were meticulously padded. Her skin was prepped and draped in the similar fashion, and after appropriate surgical pause and patient identification, a transverse incision towards the right of the midline was marked with the assistance of intraoperative flouroscopy. The incision site was infiltrated with local anesthetic and a #10 surgical blade was used to incise the skin. The incision was carried down to the subcutaneous tissue and the skin was gently undermined with tenotomy scissors. The platysma was then gently elevated and dissected with tenotomy scissors and gently undermined. Self-retaining retractors were introduced further into the field and the plane between the medial border of the sterno-cleidomastoid and the medial structures was then gently developed with sharp and dull dissection. The prevertebral fascia was identified and was gently divided, and spinal needle was then placed to confirm the appropriate surgical level. Appropriate surgical level was confirmed with intraoperative fluoroscopic imaging and a second time-out was performed. The [place] pins were placed at the C5 and C6 vertebral body and self- retained retractors were introduced into the field. Of note, during placement of the self-retaining retractors, the Apfelbaum maneuver was performed.The operating microscope was brought into the field and diskectomy was performed after incising the annulus fibrosus with a #15 blade, with the use of pituitary rongeurs, Kerrison punches , curettes and high-speed drill. Local bone was harvested during the preparation of the disc space and was saved for the arthrodesis part of the case. After exposure of the posterior longitudinal ligament, a disk fragment herniating through the posterior longitudinal ligament was found towards the left side of the midline. It extended into the foramen as expected from the preoperative imaging. It was gently removed with pituitary rongeurs and the posterior longitudinal ligament was gently divided with the use of #1 Kerrison punches. A foraminotomy was performed at this point. After the diskectomy, the thecal sac and the nerve root was found to be free of any pressure phenomenon. After copious irrigation and confirmation of meticulous hemostasis and meticulous inspection, and after appropriate sizing of the disk space, a 7 mm height PEEK interbody cage from [employer] was inserted after being filled with locally harvested bone graft during the diskectomy part and DBX. A Zevo plate was then placed and secured in place with 13-mm titanium screws. Intraoperative fluoroscopic imaging confirmed excellent placement of all hardware. After copious irrigation and confirmation of meticulous hemostasis and meticulous inspection, the self-retaining retractors were removed from the field and Valsalva maneuver confirmed excellent hemostasis. The wound was then closed by layers with interrupted 2-0 Vicryl sutures for the platysma and inverted interrupted 2-0 Vicryl sutures for the subcutaneous tissue. The skin was covered with Dermabond. At the end of the procedure, all counts were reported to be correct. The patient remained hemodynamically stable throughout the case. Intraoperative electrophysiological monitoring was stable throughout the case. The patient was then extubated and was transferred to Recovery in excellent condition. The case was done with the assistance of surgical PA because of the complexity of the case. [id number]/CPS #: [id number] POLI
[2019-07-11] MEDS ORDERED: Albuterol HFA INHALER* 8 gm MDI INH PRN (17:54)
[2019-07-11] MEDS: Insulin LISPRO* 1 UNITS UNIT SUBCUT SCH (17:59)
--- NOTE | 2019-07-11 21:15 | CONS ---
HOSPITAL MEDICINE CONSULTATION REPORT: DATE OF CONSULT: 07/11/19 PROVIDER: Sepideh Thrasher NP. ATTENDING PHYSICIAN: Dr. Elena. CONSULTING PHYSICIAN: Dr. Ofe June (dictated by Sepideh Thrasher NP). REASON FOR CONSULT: Comanagement of chronic medical conditions. HISTORY OF PRESENT ILLNESS: Ms. Thierry Gallegos is a 38-year-old female with a past medical history significant for asthma, prediabetes, obesity, iron deficiency anemia and depression who presented to [facility] for an elective. She underwent an anterior cervical diskectomy and fusion of C5-C6 with PEEK interbody cage DBX plate and screws. Please see dictated H and P from Dr. Elena for complete details. In brief, the patient had ongoing pain and loss of left upper extremity function, numbness and opted for elective cervical diskectomy with Dr. Elena. In the immediate postoperative period, the patient is complaining of mild neck pain, but denies any recent illnesses. Denies any fever, chills, chest pain, shortness of breath. Denies any nausea or vomiting. Denies any diarrhea or abdominal pain. Denies any recent hematuria , dysuria, urinary frequency, urgency, or pain with urination. Due to the patient's medical history of asthma, iron deficiency anemia, prediabetes and depression, Hospital Medicine was asked to see and evaluate to help comanage her care during this hospitalization. PAST MEDICAL HISTORY: Significant for: 1. Asthma. 2. Impaired fasting glucose. 3. Obesity. 4. Iron deficiency anemia. 5. Depression. PAST SURGICAL HISTORY: Cholecystectomy. HOME MEDICATIONS: Include: 1. Zoloft 100 mg p.o. q.p.m. 2. Metformin 500 mg p.o. q.p.m. 3. Albuterol HFA inhaler 2 puffs q.4 hours as needed. ALLERGIES: To KEFLEX, SULFA and BACTRIM. FAMILY HISTORY: Unknown as the patient was adopted. SOCIAL HISTORY: The patient is a former smoker. She quit approximately 5 years ago. Prior to that she smoked a pack a day for 15 to 20 years. She does report rare alcohol use. Denies any illicit drug use. She is . She lives with her . She is a full code. Surrogate decision maker in the event she is unable to make her own decisions is her . REVIEW OF SYSTEMS: An 11-point review of systems was completed. All the pertinent positives are as mentioned in the HPI, otherwise were negative. PHYSICAL EXAM: General: At this time, Ms. Guadarrama is a 38-year-old female who is drowsy, resting on the stretcher in the PACU. She is in no acute distress. Vital Signs: Blood pressure 154/83, heart rate 109, respirations 16 , O2 saturation 96%, temperature 97.7. HEENT: Head is atraumatic, normocephalic. Eyes: EOMs are intact. Sclerae anicteric and not pale. Oral mucosa appeared to be dry. Neck: She has an MJ collar on. She does have a dressing noted to her anterior neck. It is dry and intact. Lungs are clear to auscultation bilaterally. No wheezes, rales, or rhonchi. Cardiac: S1, S2. Regular rate and rhythm. No murmurs, rubs or gallops. Abdomen is obese, soft, nontender. Bowel sounds are present x4. Extremities: She is able to move all 4 extremities. There is no clubbing or cyanosis. Pedal pulses are +2 bilaterally. Radial pulses are +2 bilaterally. Neurologic: She is awake, alert and oriented x3, but drowsy. She has no gross focal deficits. Speech is clear. Thought process is intact. Skin: She does have a dry and intact dressing noted to her anterior neck. DIAGNOSTIC STUDIES/LAB DATA: CBC from 06/29/19: WBCs are 7.5, RBCs 4.93, hemoglobin 11.5, hematocrit 36, platelet count 228,000. INR on 07/05/19 was 0.99, PTT was 37.6. BMP: Sodium 137, potassium 4.2, chloride 101, carbon dioxide is 29, anion gap is 7, BUN 8, creatinine 0.58, glucose is 76. A1c was 6.4. Urine was within normal limits with the exception of specific gravity of 1.002. Urine wbcs were 2+, squamous epithelial cells were present. IMPRESSION AND PLAN: Ms. Thierry Gallegos is a 38-year-old female with a past medical history of asthma, obesity, iron deficiency anemia and depression who presented for an elective anterior cervical diskectomy with Dr. Elena. Her recommendations are as follows: 1. Status post anterior cervical diskectomy C5-C6 fusion with PEEK with interbody cage DBX plate and screws. Management per Neurosurgery, PT/OT per Neurosurgery. Pain management per Neurosurgery and DVT prophylaxis per Neurosurgery. 2. Depression. The patient should continue on Zoloft as previously prescribed. 3. Impaired fasting glucose. The patient should be placed on lispro sliding scale and fingersticks a.c. She can resume her metformin at discharge. 4. Asthma. She can use a Ventolin inhaler as needed for shortness of breath or wheezing. 5. FEN. She can have a regular diet. 6. Code status: She is a full code. 7. DVT prophylaxis: As per Neurosurgery. TIME SPENT: Time spent on this consultation was 45 minutes, greater than half that time was spent at the bedside reviewing events leading thus far to her hospitalization, performing physical exam, and reviewing my plan of care. I have discussed this with my attending, Dr. Ofe June; she is in agreement with my plan. SEPIDEH THRASHER, CHIEF AIRLINE RADIO OPERATOR [id number]/CPS #: [id number] POLI
[2019-07-11] MEDS: Sertraline* 100 MG TAB PO SCH (22:25)
[2019-07-11] MEDS: traMADol TAB* 50 MG PO PRN (22:25)
[2019-07-12] MEDS: Cyclobenzaprine TAB* 10 MG PO PRN (02:15)
[2019-07-12] MEDS: Lactated Ringers 1000 ML Bag* 1,000 ML IV SCH (04:44)
[2019-07-12] MEDS: traMADol TAB* 50 MG PO PRN ×2 (04:48→18:50)
[2019-07-12 07:33] LABS: ABS Basophils 0.1 10^3/ul (0-0.2); ABS Lymphocytes 1.7 10^3/ul (1.0-4.8); ABS Monocytes 0.6 10^3/ul (0-0.8); ABS Neutrophils 8.5 10^3/ul (1.5-7.7); Eosinophil % 0.2 %; Hematocrit 33 % (35-47); Hemoglobin 10.6 g/dL (12.0-16.0); Lymphocyte % 15.6 %; Mean Corpuscular HGB Conc 32 g/dL (31-36); Mean Corpuscular Hemoglobin 24 pg (27-31); Mean Corpuscular Volume 73 fL (80-97); Mean Platelet Volume 8.1 fL (7.4-10.4); Platelet Count 222 10^3/uL (150-450); Red Cell Distribution Width 17 % (10-15); White Blood Count 10.9 10^3/uL (3.5-10.8)
[2019-07-12 07:46] LABS: BUN/Creatinine Ratio 14.5 (8-20); Calcium 8.6 mg/dL (8.6-10.3); EGFR African American 148.9 (>60); Magnesium 2.2 mg/dL (1.9-2.7)
[2019-07-12] MEDS: Insulin LISPRO* 1 UNITS UNIT SUBCUT SCH ×3 (07:50→17:17)
[2019-07-12] MEDS ORDERED: Ketorolac INJ* 30 MG/ML 1 ML VIAL IV ONE (09:00)
--- NOTE | 2019-07-12 09:11 | PN ---
Progress Note - Progress Note Date of Service: 07/12/19 SOAP: Subjective: [] 38 y/o female post ACDF of C5/C6 POD # 1 patient having some post op pain. Her pain meds were adjusted over night, but continues to have some pain. Currently she is able to swallow liquids and soft foods. Her left extremity weakness has is unchanged at this time. Overall patient is doing well her vitals were stable over night. Objective: [] Initial Vitals Temp Pulse Resp BP Pulse Ox 98.2 F 89 16 148/73 98 06/29/19 13:44 06/29/19 13:44 06/29/19 13:44 06/29/19 13:44 06/29/19 13:44 General: Patient laying in bed NAD. Neuro: A&O x 3 CN II - XII intact, Pupils equal in size EOM intact. Sensation intact with light touch. Right extremity motor strength 5/5 through out. Left upper motor strength 4/5 with elbow flexion and extension, left lower extremity motor strength 4+/5 with hip flexion and extension. EHL 5/5 bilateral. Derm: wound C/D/I Assessment: [] 38 y/o female post ACDF POD #1 continues to have post op pain, left extremity weakness unchanged, overall patient is doing well. Plan: [] 1) pain control as needed 2) advance diet as tolerated 3) get CT scan 4)follow medicine recommendations
--- NOTE | 2019-07-12 11:44 | PN ---
Subjective Date of Service: 07/12/19 Interval History: patient continues to c/o neck pain , reports pain medications are not improving her neck pain. Denies fever or chills. denies chest pain or shortness of breath. Denies abd pain n/v/d. Family History: Unchanged from Admission Social History: Unchanged from Admission Past Medical History: Unchanged from Admission Objective Active Medications: Albuterol (Ventolin Hfa Inhaler*) 2 puff INH Q4H PRN PRN Reason: WHEEZING Cyclobenzaprine HCl (Flexeril Tab*) 10 mg PO TID PRN PRN Reason: SPASMS Last Admin: 07/12/19 02:15 Dose: 10 mg Dextrose (Dextrose 50% Vial 50 Ml*) 25 ml IV PUSH .FOR FS < 60 - SS PRN PRN Reason: FS < 60 Hydromorphone HCl (Dilaudid Inj*) 0.5 mg IV SLOW PU Q4H PRN PRN Reason: PAIN - SEVERE Last Admin: 07/11/19 16:55 Dose: 0.5 mg Lactated Ringer's (Lactated Ringers 1000 Ml Bag*) 1,000 mls @ 75 mls/hr IV .per rate [facility] Last Admin: 07/12/19 04:44 Dose: 75 mls/hr Insulin Human Lispro (Humalog*) 0 units SUBCUT [facility]; Protocol Last Admin: 07/12/19 11:38 Dose: Not Given Magnesium Hydroxide (Milk Of Magnesia Liq*) 30 ml PO DAILY PRN PRN Reason: CONSTIPATION Ondansetron HCl (Zofran Inj*) 4 mg IV Q6H PRN PRN Reason: NAUSEA/VOMITING Last Admin: 07/11/19 17:58 Dose: 4 mg Oxycodone HCl (Roxycodone Tab*) 10 mg PO Q4H PRN PRN Reason: moderate pain Sertraline HCl (Zoloft*) 100 mg PO QPM [facility] Last Admin: 07/11/19 22:25 Dose: 100 mg Tramadol HCl (Ultram*) 50 mg PO Q6H PRN PRN Reason: PAIN - MODERATE Last Admin: 07/12/19 04:48 Dose: 50 mg Vital Signs - 8 hr 07/12/19 07/12/19 07/12/19 04:19 04:48 07:22 Temperature Pulse Rate Respiratory 16 16 18 Rate Blood Pressure (mmHg) O2 Sat by Pulse Oximetry 07/12/19 07/12/19 07/12/19 07:43 08:00 11:33 Temperature 97.8 F 97.6 F Pulse Rate 71 78 Respiratory 14 14 14 Rate Blood Pressure 149/66 120/61 (mmHg) O2 Sat by Pulse 98 95 Oximetry Oxygen Devices in Use Now: Nasal Cannula Appearance: appears comfortable resting in bed , no acute distress Eyes: No Scleral Icterus Ears/Nose/Mouth/Throat: Clear Oropharnyx, Mucous Membranes Moist Neck: NL Appearance and Movements; NL JVP, Trachea Midline Respiratory: Symmetrical Chest Expansion and Respiratory Effort, Clear to Auscultation Cardiovascular: NL Sounds; No Murmurs; No JVD, No Edema Abdominal: NL Sounds; No Tenderness; No Distention Extremities: No Edema Skin: No Rash or Ulcers, - - dressing dry and intact to anterior neck, MJ collar in place Neurological: Alert and Oriented x 3 Nutrition: Taking PO's Result Diagrams: 07/12/19 07:16 07/12/19 07:16 Assess/Plan/Problems-Billing Assessment: Ms. Thierry Gallegos is 38 y.o female with a hx of depression/ anxiety , DM who presented fora cervical spine injury. - Patient Problems (1) Status post cervical discectomy Current Visit: Yes Status: Acute Code(s): Z98.890 - OTHER SPECIFIED POSTPROCEDURAL STATES SNOMED Code(s): 017615760 Comment: management per neurosurgery PT/OT per neurosurgery pain management per neurosurgery MJ collar in place (2) Depression Current Visit: No Status: Acute Code(s): F32.9 - MAJOR DEPRESSIVE DISORDER, SINGLE EPISODE, UNSPECIFIED SNOMED Code(s): 80783331 Comment: Continue sertraline (3) Diabetes Current Visit: Yes Status: Acute Code(s): E11.9 - TYPE 2 DIABETES MELLITUS WITHOUT COMPLICATIONS SNOMED Code(s): 88799440 Comment: fingersticks AC - lispro sliding scale (4) Full code status Current Visit: No Status: Acute Code(s): Z78.9 - OTHER SPECIFIED HEALTH STATUS SNOMED Code(s): 915661882 (5) DVT prophylaxis Current Visit: No Status: Acute Code(s): KTC7099 - SNOMED Code(s): 275981131 Comment: scd's Status and Disposition: per neurosurgery
[2019-07-12] MEDS: Ketorolac INJ* 30 MG/ML 1 ML VIAL IV PUSH PRN ×2 (15:09→22:07)
[2019-07-12] MEDS: Sertraline* 100 MG TAB PO SCH (18:37)
[2019-07-13] MEDS: traMADol TAB* 50 MG PO PRN ×3 (05:57→21:28)
[2019-07-13] MEDS: CMCS:Meloxicam(NF) 7.5 MG TAB PO SCH (07:59)
[2019-07-13] MEDS: Insulin LISPRO* 1 UNITS UNIT SUBCUT SCH ×3 (08:04→17:32)
--- NOTE | 2019-07-13 09:14 | PN ---
Progress Note - Progress Note Date of Service: 07/13/19 SOAP: Subjective: [] Patient has been complaining of pain, she reported having pain in her ribs and back, IM was notified and ordered CXR, which was normal. This morning she reports having increased pain in her shoulders and back. Previously she was administered Toradol that helped with the pain, but has taking the recommended max dose. She previously indicated that her previous regimen of oxycodone was not effective. After speaking with her this morning, she is unclear if the meds were working. Currently she is scheduled to take mobic, which uses at home and feels helps with the pain. She has been able to tolerate orals and ate 90% if her tray last night. She denies any nausea, vomiting, chest pain or shortness of breath. She has not had a BM, but has passed flatulence. Her vitals have been stable over night. Objective: [] Initial Vitals Temp Pulse Resp BP Pulse Ox 98.2 F 89 16 148/73 98 06/29/19 13:44 06/29/19 13:44 06/29/19 13:44 06/29/19 13:44 06/29/19 13:44 General: Patient laying in bed some acute distress Neuro: A&O x 3, CN II - XII grossly intact, EOM intact, decreased motor strength in left upper and lower extremity compared to right 4/5, EHL 5/5 bilaterally. Sensation intact with light touch. Derm: wound C/D/I Assessment: [] 38 y/o female post ACDF at C5/C6 POD # 2 continues to have increased post procedure pain, but has otherwise has been stable. Plan: [] 1) Pain control as needed 2) Continue to encourage ambulation 3) Continue to use IS 4) Follow IM recommendations 5) D/C planning.
[2019-07-13] MEDS: Cyclobenzaprine TAB* 10 MG PO PRN (10:13)
[2019-07-13] MEDS: Acetaminophen TAB* 325 MG PO SCH ×3 (11:46→16:31)
--- NOTE | 2019-07-13 15:16 | CONSULT ---
Consult Consult: INPATIENT PAIN CONSULTATION Ananya Gallegos is a 38 year old female. She has a medical history for an ill defined rheumatologic condition that she sees Dr. Schaffer for. In mid-March of this year, she woke up with a kink in her neck. There was no antecedent trauma. A day later the kink was gone but she had severe pain in her neck down her left arm. She went to [facility] and had an x-ray, was given muscle relaxers. She went to the ER two days later and had a CT scan and was given Prednisone. She continued to have severe pain and she was told to see her primary care doctor. She called Dr. Schaffer and he ordered an MRI of her cervical spine which was done April 21, 2019. The MRI showed a large left disc herniation at C5/6 with mass effect on the spinal cord and severe neuroforaminal stenosis. She was referred to Neurosurgery and had flexion and extension films. She was scheduled for surgery. She was admitted to the hospital on July 11, 2019 and had an ACDF C5/6 with PEEK interbody cage, DBX plate and screws. She has had a lot of pain post-op. I am asked to see her in consultation. PAST MEDICAL HISTORY: as above, impaired fasting glucose Allergies Allergy/AdvReac Type Severity Reaction Status Date / Time cephalexin [From Keflex] Allergy Hives Verified 07/11/19 06:29 Sulfa (Sulfonamide Allergy Hives Verified 07/11/19 06:29 Antibiotics) sulfamethoxazole Allergy Hives Verified 07/11/19 06:29 [From Bactrim] trimethoprim [From Bactrim] Allergy Hives Verified 07/11/19 06:29 codeine AdvReac Nausea And Verified 07/11/19 06:29 Vomiting Current Medications Acetaminophen (Tylenol Tab*) 975 mg PO TID JENNY Last Admin: 07/13/19 15:03 Dose: Not Given Albuterol (Ventolin Hfa Inhaler*) 2 puff INH Q4H PRN PRN Reason: WHEEZING Cyclobenzaprine HCl (Flexeril Tab*) 10 mg PO TID PRN PRN Reason: SPASMS Last Admin: 07/13/19 10:13 Dose: 10 mg Dextrose (Dextrose 50% Vial 50 Ml*) 25 ml IV PUSH .FOR FS < 60 - SS PRN PRN Reason: FS < 60 Hydromorphone HCl (Dilaudid Inj*) 0.5 mg IV SLOW PU Q4H PRN PRN Reason: PAIN - SEVERE Last Admin: 07/11/19 16:55 Dose: 0.5 mg Lactated Ringer's (Lactated Ringers 1000 Ml Bag*) 1,000 mls @ 75 mls/hr IV .per rate [facility] Last Admin: 07/12/19 04:44 Dose: 75 mls/hr Insulin Human Lispro (Humalog*) 0 units SUBCUT [facility]; Protocol Last Admin: 07/13/19 12:18 Dose: Not Given Ketorolac Tromethamine (Toradol Inj*) 30 mg IV PUSH Q6H PRN PRN Reason: PAIN - MODERATE Stop: 07/17/19 13:55 Last Admin: 07/12/19 22:07 Dose: 30 mg Magnesium Hydroxide (Milk Of Magnesia Liq*) 30 ml PO DAILY PRN PRN Reason: CONSTIPATION Meloxicam (Mobic(Nf)) 7.5 mg PO DAILY [facility] Last Admin: 07/13/19 07:59 Dose: 7.5 mg Ondansetron HCl (Zofran Inj*) 4 mg IV Q6H PRN PRN Reason: NAUSEA/VOMITING Last Admin: 07/11/19 17:58 Dose: 4 mg Oxycodone HCl (Roxycodone Tab*) 10 mg PO Q4H PRN PRN Reason: moderate pain Sertraline HCl (Zoloft*) 100 mg PO QPM [facility] Last Admin: 07/12/19 18:37 Dose: 100 mg Tramadol HCl (Ultram*) 50 mg PO Q6H PRN PRN Reason: PAIN - MODERATE Last Admin: 07/13/19 12:21 Dose: 50 mg SOCIAL HISTORY: Non smoker, drinks 2 drinks/week, denies illicit drug use. 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 ACDF C5/6 PLAN: I will stop her oxycodone as it was not working and will try oral Dilaudid. I will add in Lyrica for neuropathic pain and change her muscle relaxant to Baclofen. She is on bowel medications. I will follow
[2019-07-13] MEDS ORDERED: HYDROmorphone INJ* 0.5 MG/0.5 ML SYRINGE IV SLOW PU PRN (15:19)
[2019-07-13] MEDS ORDERED: oxyCODONE TAB* 5 MG TAB PO PRN (15:20)
[2019-07-13] MEDS ORDERED: HYDROmorphone TAB* 4 MG PO PRN (15:21)
[2019-07-13] MEDS ORDERED: Pregabalin CAP(*) 50 MG PO ONE (15:22)
[2019-07-13] MEDS: Baclofen TAB* 10 MG PO PRN (16:32)
[2019-07-13] MEDS: Sertraline* 100 MG TAB PO SCH (18:38)
[2019-07-13] MEDS: HYDROmorphone TAB* 2 MG PO PRN ×2 (18:39→22:34)
--- NOTE | 2019-07-13 19:16 | PN ---
Subjective Date of Service: 07/13/19 Interval History: Patient c/o severe pain in her shoulders and overall bodyaches in the morning. By time of my evaluation, her pain feels improved but still not controlled. PORTILLO Rivas with neurosurgery team, contacted Dr. Dailey for pain specialist consult. Patient tells me she does not want to use opiates. She tells me the toradol really helps but understands this is not a long-term solution and IV toradol cannot be taken at home. Denies bowel/bladder incontinence, pain in neck, fever/chills, chest pain , difficulty breathing, abd pain, n/v. Family History: Unchanged from Admission Social History: Unchanged from Admission Past Medical History: Unchanged from Admission Objective Active Medications: Acetaminophen (Tylenol Tab*) 975 mg PO TID [facility] Last Admin: 07/13/19 16:31 Dose: 975 mg Albuterol (Ventolin Hfa Inhaler*) 2 puff INH Q4H PRN PRN Reason: WHEEZING Baclofen (Lioresal Tab*) 5 mg PO TID PRN PRN Reason: SPASMS - NECK Last Admin: 07/13/19 16:32 Dose: 5 mg Dextrose (Dextrose 50% Vial 50 Ml*) 25 ml IV PUSH .FOR FS < 60 - SS PRN PRN Reason: FS < 60 Hydromorphone HCl (Dilaudid Inj*) 0.5 mg IV SLOW PU Q4H PRN PRN Reason: Breakthrough pain Hydromorphone HCl (Dilaudid Tab*) 2 mg PO Q4H PRN PRN Reason: PAIN - MODERATE Last Admin: 07/13/19 18:39 Dose: 2 mg Hydromorphone HCl (Dilaudid Tab*) 4 mg PO Q4H PRN PRN Reason: PAIN - SEVERE Lactated Ringer's (Lactated Ringers 1000 Ml Bag*) 1,000 mls @ 75 mls/hr IV .per rate [facility] Last Admin: 07/12/19 04:44 Dose: 75 mls/hr Insulin Human Lispro (Humalog*) 0 units SUBCUT [facility]; Protocol Last Admin: 07/13/19 17:32 Dose: Not Given Ketorolac Tromethamine (Toradol Inj*) 30 mg IV PUSH Q6H PRN PRN Reason: PAIN - MODERATE Stop: 07/17/19 13:55 Last Admin: 07/12/19 22:07 Dose: 30 mg Magnesium Hydroxide (Milk Of Magnesia Liq*) 30 ml PO DAILY PRN PRN Reason: CONSTIPATION Meloxicam (Mobic(Nf)) 7.5 mg PO DAILY [facility] Last Admin: 07/13/19 07:59 Dose: 7.5 mg Ondansetron HCl (Zofran Inj*) 4 mg IV Q6H PRN PRN Reason: NAUSEA/VOMITING Last Admin: 07/11/19 17:58 Dose: 4 mg Pregabalin (Lyrica Cap(*)) 50 mg PO TID [facility] Sertraline HCl (Zoloft*) 100 mg PO QPM [facility] Last Admin: 07/13/19 18:38 Dose: 100 mg Tramadol HCl (Ultram*) 50 mg PO Q6H PRN PRN Reason: PAIN - MODERATE Last Admin: 07/13/19 12:21 Dose: 50 mg Vital Signs - 8 hr 07/13/19 07/13/19 07/13/19 11:47 12:18 12:21 Temperature 97.9 F Pulse Rate 73 Respiratory 16 18 18 Rate Blood Pressure 128/63 (mmHg) O2 Sat by Pulse 96 Oximetry 07/13/19 18:39 Temperature Pulse Rate Respiratory 18 Rate Blood Pressure (mmHg) O2 Sat by Pulse Oximetry Oxygen Devices in Use Now: None Appearance: Obese, white female, sitting in chair, appearing in NAD Eyes: No Scleral Icterus, - - PERRL Ears/Nose/Mouth/Throat: Mucous Membranes Moist Neck: NL Appearance and Movements; NL JVP Respiratory: Symmetrical Chest Expansion and Respiratory Effort, Clear to Auscultation Cardiovascular: NL Sounds; No Murmurs; No JVD, RRR Abdominal: - - abd soft, nontender, nondistended Extremities: No Edema, No Clubbing, Cyanosis Skin: No Rash or Ulcers Neurological: Alert and Oriented x 3, NL Sensation, NL Muscle Strength and Tone Result Diagrams: 07/12/19 07:16 07/12/19 07:16 Assess/Plan/Problems-Billing Assessment: Ms. Thierry Gallegos is 38 y.o female with a hx of depression/ anxiety , DM who presented for cervical spine injury. - Patient Problems (1) Status post cervical discectomy Current Visit: Yes Status: Acute Code(s): Z98.890 - OTHER SPECIFIED POSTPROCEDURAL STATES SNOMED Code(s): 724366665 Comment: management per neurosurgery PT/OT per neurosurgery pain management per neurosurgery and per Dr. Dailey recommendations. Started TID tylenol MJ collar in place (2) Diabetes Current Visit: Yes Status: Acute Code(s): E11.9 - TYPE 2 DIABETES MELLITUS WITHOUT COMPLICATIONS SNOMED Code(s): 71081370 Comment: fingersticks AC, good BGs lispro sliding scale (3) Depression Current Visit: No Status: Acute Code(s): F32.9 - MAJOR DEPRESSIVE DISORDER, SINGLE EPISODE, UNSPECIFIED SNOMED Code(s): 00234085 Comment: Continue sertraline (4) Full code status Current Visit: No Status: Acute Code(s): Z78.9 - OTHER SPECIFIED HEALTH STATUS SNOMED Code(s): 021689524 (5) DVT prophylaxis Current Visit: No Status: Acute Code(s): KGF6893 - SNOMED Code(s): 041576002 Comment: scd's Status and Disposition: per neurosurgery, pain control not sufficient for discharge today
[2019-07-13] MEDS: Pregabalin CAP(*) 50 MG PO SCH (21:31)
[2019-07-14] MEDS: Acetaminophen TAB* 325 MG PO SCH ×2 (00:25→09:33)
[2019-07-14] MEDS: Baclofen TAB* 10 MG PO PRN ×2 (00:26→09:33)
[2019-07-14] MEDS: HYDROmorphone TAB* 2 MG PO PRN ×2 (02:29→06:23)
[2019-07-14] MEDS: traMADol TAB* 50 MG PO PRN ×2 (03:36→09:34)
[2019-07-14] MEDS: Insulin LISPRO* 1 UNITS UNIT SUBCUT SCH (07:50)
[2019-07-14] MEDS ORDERED: Ondansetron ODT TAB* 4 MG PO PRN (08:55)
[2019-07-14] MEDS ORDERED: Ondansetron ODT TAB* 4 MG ONE (08:57)
[2019-07-14] MEDS: CMCS:Meloxicam(NF) 7.5 MG TAB PO SCH (09:33)
[2019-07-14] MEDS: Pregabalin CAP(*) 50 MG PO SCH (09:40)
--- NOTE | 2019-07-14 10:31 | PN ---
Progress Note - Progress Note Date of Service: 07/14/19 SOAP: Subjective: [] Patient was seen by Dr. Dailey yesterday and was able to start patinet on Dilaudid 2 mg oral, he also recommended Lyrica, but patient did not want to take due to history of adverse reaction. Last night I spoke with patient at bedside she still complaining of significant pain with movement, she agreed to try the Dilaudid over night, which she reports helped her with the pain. This morning she has some nausea, but was more comfortable and felt ready to go home. Objective: [] Initial Vitals Temp Pulse Resp BP Pulse Ox 98.2 F 89 16 148/73 98 06/29/19 13:44 06/29/19 13:44 06/29/19 13:44 06/29/19 13:44 06/29/19 13:44 Patient sitting at the edge of bed, having episode of nausea. Neuro: A&O x 3, CN II - XII grossly intact, EOM intact, decreased motor strength in left upper and lower extremity compared to right 4/5, EHL 5/5 bilaterally. Sensation intact with light touch. Derm: wound C/D/I Assessment: [] 38 y/o female post ACDF of C5/C6 POD # 3 pain is better controlled, she is stable and ready for discharge. Plan: [] 1) D/C home 2) Discussed discharge instructions with patient.
[2019-07-14 11:14] VITALS: BP 133/60
--- NOTE | 2019-07-18 08:49 | DS ---
AMENDED REPORT NOW INCLUDES DESIGNATED COSIGNER DISCHARGE SUMMARY: DATE OF ADMISSION: 07/11/19 DATE OF DISCHARGE: 07/14/19 ATTENDING PHYSICIAN: Dr. Elena.* (DICTATED BY PORTILLO VINCENT) DIAGNOSES ON ADMISSION: 1. Degenerative disk disease. 2. 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 POSTOP DIAGNOSES: 1. Degenerative disk disease. 2. 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 DISPOSITION ON DISCHARGE: Good. PLACE FOR DISCHARGE: Home. HOSPITAL DISCOURSE: This patient is a very pleasant 38-year-old female with complaints of upper left extremity weakness with occasional episodes of numbness in the left side of her body with MRI findings consistent with a large collapsed C5-C6 disk herniation. After failing conservative treatment modalities, she was offered the option of surgical intervention in the form of anterior cervical diskectomy and fusion. After explaining the expectation, limitations, and possible complications of this procedure to the patient and her , the patient elected to proceed with surgery. The patient underwent the surgery on 07/11/19, tolerated it well, was later sent to PACU, then admitted to short stay unit for observation. The patient did well, but did have some uncontrolled pain from the surgery, which required adjustment of medication. Dr. Dailey was consulted to help with managing her pain. The patient was finally able to achieve comfort with the addition of oral Dilaudid 2 mg as well as some anti-inflammatory such as Tylenol. The patient did well, was able to swallow, ambulate, tolerate orals. She was recommended for discharge on 07/14/19, at that time given discharge instructions and sent home with medications to help control her pain with a followup appointment in 1 week in neurosurgery clinic. Thank you for allowing me to be a part of this patient's care. PORTILLO VINCENT [id number]/[facility] #: [id number] MTDD
== END 2019-07-14 11:58 | disposition home or self-care (01) ==
LOC: OR 05:42 → SSU 11:50
PROVIDERS: ADMIT Neurological Surgery; ATTEND Neurological Surgery
DX: M51.34 Other intervertebral disc degeneration, thoracic region (principal); M50.022 Cervical disc disorder at C5-C6 level with myelopathy; Z87.891 Personal history of nicotine dependence; Z79.899 Other long term (current) drug therapy; E66.8 Other obesity; J45.909 Unspecified asthma, uncomplicated; E11.9 Type 2 diabetes mellitus without complications; F32.9 Major depressive disorder, single episode, unspecified; R06.02 Shortness of breath
CPT/HCPCS: 36415; 71046; 72040; 72125; 76000; 80048; 81025; 83735; 85025; 96374; 96375; 96376; A9270-GY; C1713; C1776; C9359; G0378; J0330; J1100; J1170; J1240; J1885; J2001; J2250; J2405; J2704; J3010; J3370; J3490

== ENCOUNTER 2019-08-09 10:45 | Observation (INO) | payer BC ==
--- NOTE | 2019-08-09 11:03 | ED ---
Neurological HPI - HPI Summary HPI Summary: Patient is a 38 y/o F presenting to the ED for a chief complaint of neurological deficit. Patient is present with her . A few weeks ago, the patient had a cervical spine fusion performed by Dr. Elena. Since the surgery, she has had some left lower extremity weakness which was improving on 08/08/19, but on 08/09/19, the weakness worsened. Patients states that the patient went to sleep at 22:00 on 08/08/19. On the morning of 08/09/19, patient woke up with a swollen mouth, left-side facial numbness and paresthesia , and a left-sided facial droop. She states her mouth feels as if she recently had dental work performed. Patient's states that the patient has noticeably slurred speech. The patient notified Dr. Elena and told to go to the ED. On arrival to the ED, the patient had worsening left lower extremity weakness. Patient denies myalgia, fever, chills, numbness or paresthesia in the bilateral LE of UE, or LOC. She denies any aggravating or alleviating factors. PMHx is significant for pre-diabetes and anemia. Patient denies tobacco, alcohol , or drug use. Medications reviewed. Allergies noted. - History of Current Complaint Chief Complaint: EDNeurologicalDeficit Stated Complaint: LT SIDE FACIAL DROOPING PER PT Time Seen by Provider: 08/09/19 10:53 Hx Obtained From: Patient Hx Last Menstrual Period: 05/22/19 Onset/Duration: Sudden Onset, Started hours ago, Still Present Timing: Sudden Onset Onset Severity: Moderate Current Severity: Moderate Neurological Deficit Location: Facial, LLE Pain Intensity: 0 Pain Scale Used: 0-10 Numeric Character: Numbness/Tingling - Left-sided facial and LLE, Paresthesia - Left- sided facial, Motor Weakness - LLE, Impaired Speech - Slurred speech Syncope Context: Witnessed, Loss of Consciousness: No Aggravating: Nothing Alleviating: Nothing Associated Signs and Symptoms: Positive: Weakness - LLE, Impaired Speech - Slurred speech, Numbness - Left-sided facial. Negative: Loss of Consciousness, Pain - Negative myalgia, Fever - Additional Pertinent History Primary Care Physician: [id number] - Allergy/Home Medications Allergies/Adverse Reactions: Allergies Allergy/AdvReac Type Severity Reaction Status Date / Time cephalexin [From Keflex] Allergy Hives Verified 07/11/19 06:29 hydromorphone Allergy Airway Verified 08/09/19 19:37 Obstruction Sulfa (Sulfonamide Allergy Hives Verified 07/11/19 06:29 Antibiotics) sulfamethoxazole Allergy Hives Verified 07/11/19 06:29 [From Bactrim] trimethoprim [From Bactrim] Allergy Hives Verified 07/11/19 06:29 codeine AdvReac Nausea And Verified 07/11/19 06:29 Vomiting Home Medications: Home Medications Acetaminophen TAB* [Tylenol TAB*] 500 - 1,000 mg PO DAILY PRN 08/09/19 [History Confirmed 08/09/19] PMH/Surg Hx/FS Hx/Imm Hx Previously Healthy: Yes Endocrine/Hematology History: Reports: Hx Diabetes - pre diabetic ON METFORMIN, Hx Anemia - chronic anemia Denies: Hx Thyroid Disease Cardiovascular History: Reports: Hx Valvular Heart Disease - mitral valve prolapse Denies: Hx Hypercholesterolemia, Hx Hypertension, Hx Pacemaker/ICD Respiratory History: Reports: Hx Asthma, Hx Sleep Apnea Denies: Hx Chronic Obstructive Pulmonary Disease (COPD), Other Respiratory Problems/Disorders GI History: Reports: Hx Gastroesophageal Reflux Disease - problems with esophagus - seeing a specialist Denies: Hx Ulcer, Other GI Disorders History: Reports: Hx Kidney Stones - many years ago Denies: Hx Renal Disease Musculoskeletal History: Reports: Hx Arthritis - chronic joint pain,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, Hx Tendonitis - many yrs ago left wrist Denies: Hx Rheumatoid Arthritis, Hx Scoliosis, Other Musculoskeletal History Sensory History: Reports: Hx Contacts or Glasses Denies: Hx Legally Blind, Hx Deafness, Hx Hearing Aid Opthamlomology History: Reports: Hx Contacts or Glasses Denies: Hx Legally Blind EENT History: Denies: Hx Deafness Psychiatric History: Reports: Hx Anxiety, Hx Depression Denies: Hx Panic Disorder - Surgical History Surgical History: Yes Surgery Procedure, Year, and Place: lap diamond, tubes in ears, cervical spine Hx Anesthesia Reactions: Yes - itching when coming out - Immunization History Date of Tetanus Vaccine: unk Date of Influenza Vaccine: none Infectious Disease History: No Infectious Disease History: Denies: Hx Clostridium Difficile, Hx Hepatitis, Hx Human Immunodeficiency Virus (HIV), Hx Shingles, Hx Tuberculosis, Hx Known/Suspected VRE, Hx Known/ Suspected VRSA, History Other Infectious Disease, Traveled Outside the [place] in Last 30 Days - Family History Known Family History: Positive: Unknown - Pt states she is "adopted" - Social History Occupation: Employed Full-time Lives: With Family Alcohol Use: Occasionally Alcohol Amount: social Hx Substance Use: No Substance Use Type: Reports: None Hx Tobacco Use: Yes Smoking Status (MU): Former Smoker Type: Cigarettes Amount Used/How Often: pack a day for 15 yrs Length of Time of Smoking/Using Tobacco: 12 yrs Have You Smoked in the Last Year: No Review of Systems Negative: Fever, Chills Positive: Edema - Swollen mouth. Negative: Myalgia Neurological: Other - Positive left-sided facial droop Positive: Weakness - LLE, Paresthesia - Left-sided facial; negative in bilateral UE or LE, Numbness - Left-sided facial; negative in bilateral UE or LE , Slurred Speech. Negative: Syncope All Other Systems Reviewed And Are Negative: Yes Physical Exam - Summary Physical Exam Summary: Constitutional: Well-developed, Well-nourished, Alert. (-) Distressed Skin: Warm, Dry HENT: Normocephalic; Atraumatic Eyes: Conjunctiva normal Neck: Musculoskeletal ROM normal neck. (-) JVD, (-) Stridor, (-) Tracheal deviation Cardio: Rhythm regular, rate normal, Heart sounds normal; Intact distal pulses. Radial pulses are 2+ and symmetric. (-) Murmur Pulmonary/Chest wall: Effort normal. (-) Respiratory distress, (-) Wheezes, (-) Rales Abd: Soft. (-) Tenderness, (-) Distension, (-) Guarding, (-) Rebound Musculoskeletal: (-) Edema Lymph: (-) Cervical adenopathy Neuro: Alert, Oriented x3, Strength normal, Cranial nerves II-XII are grossly intact. (-) Dysmetria, (-) Nystagmus, (-) Ataxia by finger to nose testing. Decreased sensation on the left side compared to the right, slightly slurred speech, 4/5 strength in UE and LE. Psych: Mood and affect Normal Triage Information Reviewed: Yes Vital Signs On Initial Exam: Initial Vitals Temp Pulse Resp BP Pulse Ox 97.9 F 83 14 188/100 99 08/09/19 10:47 08/09/19 10:47 08/09/19 10:47 08/09/19 10:47 08/09/19 10:47 Vital Signs Reviewed: Yes Procedures - Sedation Patient Received Moderate/Deep Sedation with Procedure: No Diagnostics - Vital Signs Vital Signs Temp Pulse Resp BP Pulse Ox 08/09/19 10:47 97.9 F 83 14 188/100 99 - Laboratory Result Diagrams: 08/09/19 11:36 08/09/19 11:36 Lab Statement: Any lab studies that have been ordered have been reviewed, and results considered in the medical decision making process. - CT Head CTA CT Interpretation Completed By: Radiologist Summary of CT Findings: Head CTA IMPRESSION: Noncontrast CT of the head demonstrates no evidence of intracranial mass or hemorrhage. CTA of the neck and head demonstrates no branch occlusion or significant atherosclerosis or stenosis. Reviewed by Dr. Galindo. - EKG 11:46 Cardiac Rate: NL - 73 BPM EKG Rhythm: Sinus Rhythm ST Segment: Normal Ectopy: None Summary of EKG Findings: EKG at 11:46 shows 73 BPM with normal sinus rhythm, no STEMI. Reviewed and interpreted by Dr. Galindo. 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/Release Non-Paretic Hand: Both Correctly Best Gaze (Only Horizontal Eye Movement): Normal Visual Field Testing: No Visual Loss Facial Paresis-Pt to Smile & Close Eyes or Grimace Symmetry: Normal/Symmetrical Motor Function - Right Arm: No Drift-Holds 10 Seconds Motor Function - Left Arm: Drifts LT 10 seconds Motor Function - Right Leg: No Drift-Holds 10 Seconds Motor Function - Left Leg: Drifts LT 10 seconds Limb Ataxia-Must be out of Proportion to Weakness Present: Absent Sensory (Use Pinprick to Test Arms/Legs/Trunk/Face): Pinprick Less on Affected Best Language (Describe Picture, Name Items): No Aphasia Dysarthria (Read Several Words): Slurs Some Words Extinction and Inattention: No Abnormality Total Score: 4 Course/Dx - Course Course Of Treatment: Patient is here with sudden onset left-sided deficits. Patient went to bed with no symptoms and woke up with left-sided deficits. Patient was out of the TPA window and had a recent surgery in her neck. Patient had a CT brain which showed evidence of hemorrhage. Patient had a CT which showed no large vessel occlusion. Patient was evaluated by neurology who thinks patient did have a stroke and patient was admitted to the hospital. - Diagnoses Provider Diagnoses: Left-sided weakness, CVA (cerebral vascular accident) - Physician Notifications Discussed Care Of Patient With: Zi Serna - At 11:59, Dr. Serna states he will come see the patient. At 14:11, Dr. Serna assessed the patient and he recommends admission. At 15:18, Dr. Gagnon agrees to admit the patient to [facility] [place] with a diagnosis of CVA and left-sided weakness. Time Discussed With Above Provider: 11:59 - Critical Care Time Critical Care Time: 30-74 min - 35 min Discharge ED - Sign-Out/Discharge Documenting (check all that apply): Patient Departure - Admit - Discharge Plan Condition: Stable Disposition: ADMITTED TO [facility] - Billing Disposition and Condition Condition: STABLE Disposition: Admitted to [facility] - Attestation Statements Document Initiated by Hayliee: Yes Documenting Scribe: Staci Pepper Provider For Whom Tamara is Documenting (Include Credential): Mac Galindo MD Scribe Attestation: Staci Bhandari, scribed for Mac Galindo MD on 08/09/19 at 2018. Scribe Documentation Reviewed: Yes Provider Attestation: The documentation as recorded by the Staci monterroso accurately reflects the service I personally performed and the decisions made by , Mac Galindo MD Status of Scribe Document: Viewed
[2019-08-09] MEDS ORDERED: NS 0.9% 1000 ML** 1,000 ML IV ONE (11:04)
[2019-08-09 11:49] LABS: ABS Eosinophils 0.2 10^3/ul (0-0.6); ABS Lymphocytes 1.9 10^3/ul (1.0-4.8); ABS Monocytes 0.4 10^3/ul (0-0.8); ABS Neutrophils 5.2 10^3/ul (1.5-7.7); Eosinophil % 2.6 %; Hematocrit 32 % (35-47); Hemoglobin 10.5 g/dL (12.0-16.0); Lymphocyte % 24.2 %; Mean Corpuscular HGB Conc 33 g/dL (31-36); Mean Corpuscular Hemoglobin 24 pg (27-31); Mean Corpuscular Volume 72 fL (80-97); Mean Platelet Volume 8.1 fL (7.4-10.4); Nucleated Red Blood Cells % 0.1; Platelet Count 180 10^3/uL (150-450); Red Blood Count 4.45 10^6 /uL (3.70-4.87); Red Cell Distribution Width 17 % (10-15); White Blood Count 7.7 10^3/uL (3.5-10.8)
[2019-08-09 11:58] LABS: INR 0.92 (0.82-1.09)
--- OUTSIDE RECORDS SUMMARY | 2019-08-09 11:59 | XMS REPORT | Continuity of Care Document ---
:1980 External Reference #:[id number] Author Name Cesia Alvarez MD (transmitted by agent of provider Abel Hernandez) Address [address] , [place] [address] Care Team Providers Name Role Phone Carmencita Petit MD - Internal Care Team Information Lab Coordinator [phone] Medicine Problems Active Problems Provider Date Depressive [...] for Unknown 11 years Smoking Status Reviewed: 06/27/19 Former Cigarette Smoker Smoked 3/4 ppd for [...] Medications SIG Qnty Indications Ordering Date Provider CARY Pichardo When out of bed G99.2 Vassilios 06/09/2019 until surgery MD Kassy Iron (Ferrous take one 60tabs Rodriguez Schaffer, 04/29/2019 Sulfate) capsule/tablet M.D. 142(45Fe) daily by mouth mg Tablets ER Zoloft 1 by mouth every 90tabs Z79.899 Rodriguez Schaffer, 04/18/2019 100mg day M.D. Tablets Glucophage Every Day Unknown 04/10/2019 500mg Tablets Meloxicam take one tab twice 30tabs M06.4 Rodriguez Schaffer, 11/03/2018 7.5mg daily as needed M.D. Tablets for pain, avoid other nsaids Pulmicort 9 Has Not Needed ) 180ml Carmencita Petit, 10/10/2018 1 unit nebulizer M.D. 0.25mg/2ML twice a day Suspension Albuterol Sulfate four times a day 90ml J45.901 Carmencitaleydi Petit, 09/26/2018 as needed M.D. (2.5mg/3ML) 0.083% Nebulizer Onetouch Ultra Blue test twice a day 100units R73.01 Carmencita Petit, 01/26 and as needed M.D. Strips Ventolin HFA 1 unit puff every 8gm J45.20 Marie Khan, 01/12/2018 6 hours as needed 108(90Base) mcg/Act Aerosol Wrist Splint use nightly to 2units G56.03 Rodriguez Schaffer, 11/25/2017 [facility] [place].D. discomfort in the right and left hand History Medications Gabapentin Take 1 Capsule By deion Schaffer, 05/26/2019 - 300mg Capsules Mouth AT Night For M.D. 06/27/2019 1 Week, Then Take 1 Capsule Twice Daily Ongoing Gabapentin take 1 capsule by deion Schaffer, 04/18/2019 - 100mg Capsules mouth at night for M.D. 05/10/2019 1 week then 1 by mouth twice daily ongoing Gabapentin take one 30caps Rodriguez Schaffer, 04/13/2019 - 300mg Capsules capsule/tablet by M.D. 04/18/2019 mouth at night for 1 week then 1 twice daily ongoing Prednisone Every Day Unknown 04/10/2019 - 20mg Tablets 04/27/2019 Methotrexate Sodium Weekly Unknown 04/08/2019 - 2.5mg 04/18/2019 Tablets Valium Bedtime 3tabs Unknown 04/08/2019 - 5mg Tablets 04/18/2019 Methotrexate take 4 30tabs Rodriguez Schaffre, 03/30/2019 - 2.5mg capsules/tablets by M.DZachary 04/18/2019 Tablets mouth once weekly on Folic Acid take one 90tabs Rodriguez Cantrelldor, 03/30/2019 - 1mg Tablets capsule/tablet M.DZachary 04/27/2019 daily by mouth Immunizations CPT Code Status Date Vaccine Lot # [id number] Refused 10/06/2017 Influenza Virus Vaccine, Quadrivalent, Split, Preservative Free Vital Signs Date Vital Result Comment 06/27/2019 8:44am Height 63 inches 5'3" Weight 280.12 lb Heart Rate 88 /min BP Systolic 131 mmHg BP Diastolic 87 mmHg Body Temperature 97.7 F O2 % BldC Oximetry 99 % BMI (Body Mass Index) 49.6 kg/m2 06/09/2019 9:26am Height 63 inches 5'3" Weight 277.00 lb BP Systolic 128 mmHg BP Diastolic 84 mmHg Pain Level 3 BMI (Body Mass Index) 49.1 kg/m2 Results Test Date Facility Test Result H/L Range Note Order 06/27/2019 [facility] In-House EKG <pending> Urinalysis Profile 05/11/2019 [facility] Urine Color Genna [address] [place] [address] [phone] Urine Appearance Turbid Urine Specific [place] 1.015 Normal 1.010-1.030 Urine pH 5.0 Normal 5-9 Urine Urobilinogen Negative Negative Urine Ketones Negative Negative Urine Protein Negative Negative Urine Leukocytes Negative Negative Urine Blood Negative Negative Urine Nitrite Negative Negative Urine Bilirubin Negative Negative Urine Glucose Negative Negative Laboratory test 05/11/2019 [facility] Erythrocyte Sed 35 mm/Hr High 0-[address] [place] [address] [phone] Laboratory test 05/11/2019 [facility] C Reactive 16.04 High < 8.[address] Protein mg/[place] [address] [phone] CBC Auto Diff 05/11/2019 [facility] White Blood 8.6 Normal 3.5 -10.[address] Count 10^3/[place] [address] [phone] Red Blood Count 4.96 10^6/uL High 3.70-4.87 [...] Blood Cells % 0.0 Comp Metabolic 05/11/2019 [facility] Sodium 137 mmol/L Normal 135-[address] [place] [address] [phone] Potassium 4.4 mmol/L Normal 3.5-5.0 Chloride 105 [...] Non- 118.1 >60 Egfr 142.9 >60 2 Iron & Iron Binding 04/26/2019 [facility] Iron 33 g/dL Low 50-[address] [place] [address] [phone] Unsaturated Iron Binding < 451 g/dL Total Iron Binding Capacity 466 g/dL High 250-450 Transferrin 333 mg/dL Normal 203-362 % Iron Saturation 7 % Low 15-55 Vitamin B12 04/26/2019 [facility] Vitamin B12 334 pg/mL Normal 180-914 [address] [place] [address] [phone] Folic Acid (Folate) 18.08 ng/mL >3.99 Laboratory test 04/26/2019 [facility] Ferritin 21.0 Normal 11- [address] ng/[place] [address] [phone] Laboratory test 04/14/2019 [facility] Erythrocyte Sed 31 mm/Hr High 0-[address] [place] [address] [phone] C Reactive Protein 11.99 mg/L High <8.01 CBC Auto 04/14/2019 [facility] White Blood 13.7 10^3/uL High 3.5-10.[address] [place] [address] [phone] Red Blood Count 4.59 10^6/uL Normal 3.70-4.87 Hemoglobin 10.7 g/dL Low 12.0-16.0 Hematocrit 33 % Low 35-47 Mean Corpuscular Volume 72 fL Low 80-97 4 Mean Corpuscular Hemoglobin 23 pg Low 27-31 [...] Blood Cells % 0.1 Comp Metabolic 04/14/2019 [facility] Sodium 139 mmol/L Normal 135-[address] [place] [address] [phone] Potassium 4.2 mmol/L Normal 3.5-5.0 Chloride 104 [...] Egfr Non- 88.8 >60 Egfr 107.4 >60 5 CBC Auto 04/10/2019 [facility] White Blood 11.2 10^3/uL High 3.5-10.[address] [place] [address] [phone] Red Blood Count 5.05 10^6/uL High 3.70-4.87 [...] Blood Cells % 0.0 Comp Metabolic 04/10/2019 [facility] Sodium 135 mmol/L Normal 135-145 Panel [address] [place] [address] [phone] Potassium 4.4 mmol/L Normal 3.5-5.0 Chloride 101 [...] Egfr 125.0 >60 7 Laboratory test 04/10/2019 [facility] C Reactive 8.82 mg/L High <8.01 finding [address] [place] [address] [phone] Laboratory test 12/28/2018 [facility] C Reactive 15.67 mg/L High <8.01 finding [address] [place] [address] [phone] Erythrocyte Sed Rate 32 mm/Hr High 0-19 [...] 145 to 180 Deficient Range <145 4 Consistent with Previous Results Reported on 04/10/19 5 Because ethnic data is not always [...] 5 Kidney failure <15 (or dialysis) 6 Consistent with Previous Results Reported on [...] (or dialysis) Procedures Date Code Description Status 06/27/2019 31545 EKG Tracing & Interpretation Completed 06/06/2019 329566073 Diabetic Retinal Eye Exam Completed 10/13/2016 51654036 Colonoscopy Completed Medical Devices Description No Information Available Encounters Type Date Location Provider Dx Diagnosis Office Visit 05/10/2019 Rheumatology Rodriguez Schaffer G99.2 Myelopathy in 4:[facility] diseases classified elsewhere M06.4 Inflammatory polyarthropathy R70.0 Elevated erythrocyte sedimentation rate Z79.1 senior living (current) use of non-steroidal non-inflam (Nsaid) N39.41 Urge incontinence Office Visit 04/28/2019 Neurosurgery Karlos M50.022 Cervical disc 11:00a [facility] disorder at C5-C6 level with myelopathy Office Visit 04/18/2019 Rheumatology Rodriguez M06.4 Inflammatory [...] rate Z79.899 Other residential (current) drug therapy Office Visit 12/28/2018 Rheumatology Rodriguez M06.4 Inflammatory 11:00a [facility] Schaffer M.D. polyarthropathy R79.82 Elevated C-reactive protein (CRP) R70.0 Elevated erythrocyte sedimentation rate M25.572 Pain in left ankle and joints of left foot Assessments Date Code Description Provider 06/27/2019 Z01.818 Encounter for other preprocedural Cesia Alvarez MD examination 06/27/2019 E66.8 Other obesity Cesia Alvarez MD 06/27/2019 R06.02 Shortness of breath Cesia Alvarez MD 06/14/2019 G99.2 Myelopathy in diseases classified Anamika Elena MD elsewhere 06/14/2019 M50.022 Cervical disc disorder at C5-C6 level Anamika Elena MD with myelopathy 06/09/2019 G99.2 Spinal stenosis in cervical region Anamika Elena MD 06/09/2019 M50.022 Cervical disc disorder at C5-C6 level Anamika Elena MD with myelopathy 05/10/2019 G99.2 Spinal stenosis in cervical region Rodriguez Schaffer M.D. 05/10/2019 M06.4 Inflammatory polyarthropathy Rodriguez Schaffer M.D. 05/10/2019 R70.0 Elevated erythrocyte sedimentation rate Rodriguez Schaffer M.D. 05/10/2019 Z79.1 senior living (current) use of non-steroidal Rodriguez Schaffer M.D. anti-inflammatories (Nsaid) 05/10/2019 N39.41 Urge incontinence Rodriguez Schaffer M.D. 04/28/2019 M50.022 Cervical disc disorder at C5-C6 level [facility] with myelopathy 04/18/2019 M06.4 Inflammatory polyarthropathy Rodriguez Schaffer M.D. 04/18/2019 R79.82 Elevated C-reactive protein (CRP) Rodriguez Schaffer M.D. 04/18/2019 R70.0 Elevated erythrocyte sedimentation rate Rodriguez Schaffer M.D. 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 04/18/2019 M62.81 Muscle weakness (generalized) Rodriguez Schaffer M.D. 03/30/2019 M06.4 Inflammatory polyarthropathy Rodriguez Schaffer M.D. 03/30/2019 R79.82 Elevated C-reactive protein (CRP) Rodriguez Schaffer M.D. 03/30/2019 R70.0 Elevated erythrocyte sedimentation rate Rodriguez Schaffer M.D. 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 12/28/2018 M06.4 Inflammatory polyarthropathy Rodriguez Schaffer M.D. 12/28/2018 R79.82 Elevated C-reactive protein (CRP) Rodriguez Schaffer M.D. 12/28/2018 R70.0 Elevated erythrocyte sedimentation rate Rodriguez Schaffer M.D. 12/28/2018 M25.572 Pain in left ankle and joints of left Rodriguez Schaffer M.D. foot Plan of Treatment Future Appointment(s):07/06/2019 10:30 am - Anamika Elena MD at [facility]10/17/2019 10:00 am - Royal Arizmendi M.D. at [facility]06/27/2019 - Cesia Alvarez MDZ01.818 Encounter for other preprocedural examinationNew Labs:CBC Auto Diff, Ordered: Comp Metabolic Panel, Ordered: 06/27/19Hemoglobin A1c (Glyco HGB), Ordered : 06/27/19Comments:Please have labs done today prior to leavingu have an appt for pre-op on .8 Other obesityNew Labs:Hemoglobin A1c (Glyco HGB), Ordered: 06/27/19R06.02 Shortness of breath Functional Status Description No Information Available Mental Status Description No Information Available Referrals Refer to Dr Reason for Referral Status Appt Date Doug Thorne MD Please evaluate and treat cervical radiculopathy Sent [address] [facility] [place] [address] [phone] Christiano Puga MD Please evaluate and treat iron deficiency anemia Sent and determine cause of rising white count to see if there is a hematologic cause of anemia and leukocytosis and elevated inflammatory markers SECOND REQUEST [address] [place] [address] [phone] Anamika Elena MD please evaluate and treat patient with Scheduled 05/03/2019 asymmetric upper extremity weakness now extruded paracentral disc associated severe cervical neural foraminal stenosis [address] [facility] [place] [address] [phone] Royal Arizmendi MD Please evaluate patient with new onset left upper Sent 00 / extremity weakness, history of an inflammatory arthropathy [address] [facility] [place] [address] [place] [address] [phone]
--- OUTSIDE RECORDS SUMMARY | 2019-08-09 11:59 | XMS REPORT | Continuity of Care Document ---
:1980 External Reference #:[id number] Author Name Carmencita Petit M.D. 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 Glucophage every day 90tabs Carmencita Gomezan, 04/10/2019 500mg M.D. Tablets Meloxicam take one tab daily 30tabs M06.4 Rodriguez Schaffer, 11/03/2018 7.5mg Tablets as needed for M.D. pain, avoid other nsaids Pulmicort 9 Has Not Needed ) 180ml Carmencita Petit, 10/10/2018 0.25mg/2ML 1 unit nebulizer M.D. Suspension twice a day Albuterol Sulfate four times a day 90ml J45.901 Carmencita Gomezan, 09/26/2018 as needed M.D. (2.5mg/3ML) 0.083% Nebulizer Ventolin HFA 1 unit puff every 8gm J45.20 Marie Khan, 01/12/2018 6 hours as needed 108(90Base) mcg/Act Aerosol Wrist Splint use nightly to 2units G56.03 Rodriguez Schaffer, 11/25/2017 Misc help with M.D. discomfort in the right and left hand Baclofen Take 1 Tablet By Unknown 5mg Tablets Mouth Three Times A Day as Needed For Neck Spasms [facility] Acetaminophen 2 tab every 8 Unknown Extra Strength hours 500mg Tablets History Medications Amoxicillin 1 tab three times a 15tabs Carmencita Petit, 07/05/2019 - 500mg Tablets day x 5 days only M.D. 07/10/2019 Gabapentin Take 1 Capsule By 30edmundo Schaffer, 05/26/2019 - 300mg Capsules Mouth AT Night For M.D. 06/27/2019 1 Week, Then Take 1 Capsule Twice Daily Ongoing Iron (Ferrous Sulfate) take one 60tabs Rodriguez Schaffer, 04/29/2019 - capsule/tablet M.D. 07/18/2019 142(45Fe) mg Tablets daily by mouth ER Gabapentin take 1 capsule by 30edmundo Schaffer, [...] Rodriguez Schaffer, 03/30/2019 - 2.5mg capsules/tablets by M.D. 04/18/2019 Tablets mouth once weekly on Folic Acid take one 90tabs Rodriguez Schaffer, 03/30/2019 - 1mg Tablets capsule/tablet M.DZachary 04/27/2019 daily by mouth Immunizations CPT Code Status Date Vaccine Lot # [id number] Refused 10/06/2017 Influenza Virus Vaccine, Quadrivalent, Split, Preservative Free Vital Signs Date Vital Result Comment 07/18/2019 2:25pm Height 63 inches 5'3" Weight 276.00 lb Heart Rate 82 /min BP Systolic Sitting 139 mmHg BP Diastolic Sitting 93 mmHg Pain Level 7 O2 % BldC Oximetry 97 % BMI (Body Mass Index) 48.9 kg/m2 06/27/2019 8:44am Height 63 inches 5'3" Weight 280.12 lb Heart Rate 88 /min BP Systolic 131 mmHg BP Diastolic 87 mmHg Body Temperature 97.7 F O2 % BldC Oximetry 99 % BMI (Body Mass Index) 49.6 kg/m2 Results Test Acquired Date Facility Test Result H/L Range Note Laboratory test 07/11/2019 [facility] Point of Care 122 mg/dL High 70-[address] [place] [address] [phone] Urinalysis 07/08/2019 [facility] Urine Color Colorless Profile [address] [place] [address] [phone] Urine Appearance Clear Urine Specific Rose 1.002 Low 1.010-1.030 Urine pH 6.0 Normal 5-9 Urine Urobilinogen Negative Negative Urine Ketones Negative Negative Urine Protein Negative Negative Urine Leukocytes Negative Negative Urine Blood Negative Negative Urine Nitrite Negative Negative Urine Bilirubin Negative Negative Urine Glucose Negative Negative Urine Culture And 07/08/2019 [facility] Urine SEE RESULT [address] [place] [address] [phone] Laboratory test 07/05/2019 [facility] Partial 37.6 seconds Normal 26.[address] Thrombo Time -38. [place] [address] PTT 0 [phone] Inr/Protime 07/05/2019 [facility] Inr 0.99 Normal 0.[address] -1.0 [place] [address] [phone] Urinalysis Profile 06/29/2019 [facility] Urine Color Yellow [address] [place] [address] [phone] Urine Appearance Cloudy Urine Specific Rose 1.019 Normal 1.010-1.030 Urine pH 5.0 Normal 5-9 Urine Urobilinogen Negative Negative Urine Ketones Negative Negative Urine Protein Negative Negative Urine Leukocytes 1+ Abnormal Negative Urine Blood Negative Negative * * Abnormal Negative 4 Urine Nitrite Negative Negative Urine Bilirubin Negative Negative Urine Glucose Negative Negative Urine White Blood Cell Trace(0-5/hpf) Absent Urine Red Blood Cell 2+(6-10/hpf) Abnormal Absent Urine Bacteria Absent Absent Urine Squamous Epithelial Cell Present Abnormal Absent Basic Metabolic 06/29/2019 [facility] Sodium 137 mmol/L Normal 135-[address] [place] [address] [phone] Potassium 4.2 mmol/L Normal 3.5-5.0 Chloride 101 mmol/L Normal 101-111 Co2 Carbon Dioxide 29 mmol/L Normal 22-32 Anion Gap 7 mmol/L Normal 2-11 Glucose 76 mg/dL Normal 70-100 Blood Urea Nitrogen 8 mg/dL Normal 6-24 Creatinine 0.58 mg/dL Normal 0.51-0.95 BUN/Creatinine Ratio 13.8 Normal 8-20 Calcium 9.5 mg/dL Normal 8.6-10.3 Egfr Non- 115.7 >60 Egfr 140.0 >60 5 Laboratory test 06/29/2019 [facility] HCG < 0.60 [address] mIU/[place] [address] [phone] CBC No Diff 06/29/2019 [facility] White Blood 10.5 Normal 3.5- [address] Count 10^3/uL 0.8 [place] [address] [phone] Red Blood Count 4.93 10^6/uL High 3.70-4.87 Hemoglobin 11.5 g/dL Low 12.0-16.0 Hematocrit 36 % Normal 35-47 Mean Corpuscular Volume 72 fL Low 80-97 Mean Corpuscular Hemoglobin 23 pg Low 27-31 Mean Corpuscular HGB Conc 32 g/dL Normal 31-36 Red Cell Distribution Width 17 % High 10-15 Platelet Count 228 10^3/uL Normal 150-450 Mean Platelet Volume 8.6 fL Normal 7.4-10.4 Inr/Protime 06/29/2019 [facility] Inr 1.03 Normal 0.82-1.[address] [place], [place] [address] [phone] Laboratory test 06/29/2019 [facility] Partial 43.4 High 26.0- 38.[address] [place] [address] Time PTT [phone] Type & Screen 06/29/2019 [facility] Patient A Positive [address] Blood Type [place], [place] [id number] [phone] Antibody Screen NEGATIVE Urine Culture And 06/29/2019 [facility] Urine Culture SEE RESULT [address] BEL[place], [place] [id number] [phone] Laboratory test 06/27/2019 [facility] Hemoglobin A1c 6.4 % High 4.0- [address] (Glyco HGB) 5.6 [place], [place] [address] [phone] CBC Auto Diff 06/27/2019 [facility] White Blood 10.6 Normal 3.5- [address] Count 10^3/uL 10.8 [place], [place] [address] [phone] Red Blood Count 4.89 10^6/uL High 3.70-4.87 Hemoglobin 11.6 g/dL Low 12.0-16.0 Hematocrit 36 % Normal 35-47 Mean Corpuscular Volume 73 fL Low 80-97 10 Mean Corpuscular Hemoglobin 24 pg Low 27-31 Mean Corpuscular HGB Conc 32 g/dL Normal 31-36 Red Cell Distribution Width 18 % High 10-15 Platelet Count 232 10^3/uL Normal 150-450 Mean Platelet Volume 9.1 fL Normal 7.4-10.4 Abs Neutrophils 7.3 10^3/uL Normal 1.5-7.7 Abs Lymphocytes 2.5 10^3/uL Normal 1.0-4.8 Abs Monocytes 0.4 10^3/uL Normal 0-0.8 Abs Eosinophils 0.2 10^3/uL Normal 0-0.6 Abs Basophils 0.1 10^3/uL Normal 0-0.2 Abs Nucleated RBC 0.0 10^3/uL Granulocyte % 69.3 % Lymphocyte % 23.7 % Monocyte % 4.1 % Eosinophil % 2.0 % Basophil % 0.9 % Nucleated Red Blood Cells % 0.1 Comp Metabolic 06/27/2019 [facility] Sodium 137 mmol/L Normal 135-145 Panel [address] [place] [address] [phone] Potassium 4.6 mmol/L Normal 3.5-5.0 Chloride 102 mmol/L Normal 101-111 Co2 Carbon Dioxide 28 mmol/L Normal 22-32 Anion Gap 7 mmol/L Normal 2-11 Glucose 98 mg/dL Normal 70-100 Blood Urea Nitrogen 8 mg/dL Normal 6-24 Creatinine 0.58 mg/dL Normal 0.51-0.95 BUN/Creatinine Ratio 13.8 Normal 8-20 Calcium 9.2 mg/dL Normal 8.6-10.3 Total Protein 6.9 g/dL Normal 6.4-8.9 Albumin 4.0 g/dL Normal 3.2-5.2 Globulin 2.9 g/dL Normal 2-4 Albumin/Globulin Ratio 1.4 Normal 1-3 Total Bilirubin 0.50 mg/dL Normal 0.2-1.0 Alkaline Phosphatase 57 U/L Normal 34-104 Alt 23 U/L Normal 7-52 Ast 19 U/L Normal 13-39 Egfr Non- 115.7 >60 Egfr 140.0 >60 11 Urinalysis Profile 05/11/2019 [facility] Urine Color Genna [address] [place] [address] [phone] Urine Appearance Turbid Urine Specific Rose 1.015 Normal 1.010-1.030 Urine pH 5.0 Normal 5-9 Urine Urobilinogen Negative Negative Urine Ketones Negative Negative Urine Protein Negative Negative Urine Leukocytes Negative Negative Urine Blood Negative Negative Urine Nitrite Negative Negative Urine Bilirubin Negative Negative Urine Glucose Negative Negative Laboratory test 05/11/2019 [facility] Erythrocyte Sed 35 mm/Hr High 0-[address] [place] [address] [phone] Comp Metabolic 05/11/2019 [facility] Sodium 137 Normal 135- [address] mmol/[place] [address] [phone] Potassium 4.4 mmol/L Normal 3.5-5.0 Chloride 105 [...] Egfr Non- 118.1 >60 Egfr 142.9 >60 12 CBC Auto 05/11/2019 [facility] White Blood 8.6 10^3/uL Normal 3.5-10.[address] [place] [place] [address] [phone] Red Blood Count 4.96 10^6/uL High 3.70-4.87 Hemoglobin 11.5 g/dL Low 12.0-16.0 Hematocrit 36 % Normal 35-47 Mean Corpuscular Volume 73 fL Low 80-97 13 Mean Corpuscular Hemoglobin 23 pg Low 27-31 [...] Red Blood Cells % 0.0 Laboratory test 05/11/2019 [facility] C Reactive 16.04 mg/L High <8.[address] [place] [address] [phone] Iron & Iron 04/26/2019 [facility] Iron 33 g/dL Low 50-212 Binding Capacity [address] [place], [place] [address] [phone] Unsaturated Iron Binding < 451 g/dL Total Iron Binding Capacity 466 g/dL High 250-450 Transferrin 333 mg/dL Normal 203-362 % Iron Saturation 7 % Low 15-55 Vitamin B12 04/26/2019 [facility] Vitamin B12 334 pg/mL Normal 180-914 [address] Folate [address] [place] [place] [address] [phone] Folic Acid (Folate) 18.08 ng/mL >3.99 Laboratory test 04/26/2019 [facility] Ferritin 21.0 Normal 11- [address] ng/[place] [address] [phone] Laboratory test 04/14/2019 [facility] Erythrocyte Sed 31 mm/Hr High 0-[address] [place] [address] [phone] C Reactive Protein 11.99 mg/L High <8.01 CBC Auto 04/14/2019 [facility] White Blood 13.7 10^3/uL High 3.5-10.[address] [place] [address] [phone] Red Blood Count 4.59 10^6/uL Normal 3.70-4.87 Hemoglobin 10.7 g/dL Low 12.0-16.0 Hematocrit 33 % Low 35-47 Mean Corpuscular Volume 72 fL Low 80-97 15 Mean Corpuscular Hemoglobin 23 pg Low 27-31 [...] Blood Cells % 0.1 Comp Metabolic 04/14/2019 [facility] Sodium 139 mmol/L Normal 135-[address] [place] [address] [phone] Potassium 4.2 mmol/L Normal 3.5-5.0 Chloride 104 [...] Egfr Non- 88.8 >60 Egfr 107.4 >60 16 CBC Auto 04/10/2019 [facility] White Blood 11.2 10^3/uL High 3.5-10.[address] [place] [place] [address] [phone] Red Blood Count 5.05 10^6/uL High 3.70-4.87 Hemoglobin 11.5 g/dL Low 12.0-16.0 Hematocrit 36 % Normal 35-47 Mean Corpuscular Volume 72 fL Low 80-97 17 Mean Corpuscular Hemoglobin 23 pg Low 27-31 [...] Blood Cells % 0.0 Comp Metabolic 04/10/2019 [facility] Sodium 135 mmol/L Normal 135-[address] [place], [place] [address] [phone] Potassium 4.4 mmol/L Normal 3.5-5.0 Chloride 101 [...] Egfr Non- 103.3 >60 Egfr 125.0 >60 18 Laboratory test 04/10/2019 [facility] C Reactive 8.82 mg/L High <8.[address] [place] [address] [phone] 1 Electrical Parts Reconditioner: [id number] 2 SEE RESULT BELOW Name: ANAYNA FELICIANO : [address]: Carmencita Petit MD Acct: [id number] Unit: [id number] AGE: 38 Location: LAB Re07/08/19 SEX: F Status: REG REF SPEC: [id number] RAVEN: 07/08/[address]: Carmencita Petit MD REQ: [id number] RECD: 07/08/19 STATUS: COMP _ SOURCE: URINE SPDESC: ORDERED: Urine Culture Urine Source: Clean Catch Procedure Result Reported Site Urine Culture Final 07/09/19- 1215 ML No Growth (<1,000 CFU/mL) * ML - Main Lab . END OF REPORT DEPARTMENT OF PATHOLOGY, [address] [place] [address] Berto Paul M.D. Director [facility] # [id number] 3 Standard intensity warfarin therapeutic range: 2.0-3.0 High intensity warfarin therapeutic range: 2.5-3.5 4 *Ascorbic acid is present which may interfere with detection of blood. 5 Because ethnic data is not always [...] 5 Kidney failure <15 (or dialysis) 6 <5.0 Negative 5.0 - 25.0 Indeterminate (Repeat testing recommended after 72 hours) >25.0 Positive Perimenopausal women can display HCG levels of up to 20 mIU/mL 7 Standard intensity warfarin therapeutic range: 2.0-3.0 High intensity warfarin therapeutic range: 2.5-3.5 8 SEE RESULT BELOW Name: ANANYA FELICIANO : [address]: Anamika Elena MD Acct: [id number] Unit: [id number] AGE: 38 Location: [facility] Re06/29/19 SEX: F Status: REG REF SPEC: [id number] RAVEN: 06/29/[address]: Anamika Elena MD REQ: [id number] RECD: 06/29/19 STATUS: COMP _ SOURCE: URINE SPDESC: ORDERED: Urine Culture Procedure Result Reported Site Urine Culture Final 06/30/19- 1329 ML Organism 1 STREP GROUP B [place] Count 75-100,000 (Many) CFU/ML Susceptibility testing of penicillins and other B-lactams approved by FDA for treatment of Streptococcus pyogenes (Group A Strep) and Streptococcus agalactiae (Group B Strep) is not necessary for clinical purposes and need not be done routinely, since as with vancomycin, resistant strains have not been recognized. (CLSI Q909-X57;p.66) Positive isolates will be saved for one week. Please call the Microbiology Laboratory if further susceptibility testing is needed. * ML - Main Lab . END OF REPORT DEPARTMENT OF PATHOLOGY, [address] [place] [address] Berto Paul M.D. Director [facility] # [id number] 9 Therapeutic target for the treatment of diabetes mellitus patients is <7% HBA1C, and in selective patients <6.0%. Please refer to [place] [employer] diabetic care guidelines for further information. 10 Consistent with Previous Results Reported on 05/11/19 11 Because ethnic data is not always readily [...] 15-29 5 Kidney failure <15 (or dialysis) 12 Because ethnic data is not always readily [...] 15-29 5 Kidney failure <15 (or dialysis) 13 Consistent with Previous Results Reported on 04/14/19 14 Normal Range 180 to 914 Indeterminate Range 145 to 180 Deficient Range <145 15 Consistent with Previous Results Reported on 04/10/19 16 Because ethnic data is not always [...] 17 Consistent with Previous Results Reported on 02/10/19. 18 Because ethnic data is not always readily [...] dialysis) Procedures Date Code Description Status 06/27/2019 81110 EKG Tracing & Interpretation Completed 06/06/2019 544203633 Diabetic Retinal Eye Exam Completed 10/13/2016 66891787 Colonoscopy Completed Medical Devices Description No Information Available Encounters Type Date Location Provider Dx Diagnosis Office Visit 07/11/2019 [facility] F32.9 Major depressive 11:57a Assoc[facility] Thrasher NP disorder, single Hospitalists episode, unspecified R73.01 Impaired fasting glucose J45.909 Unspecified asthma, uncomplicated Z98.1 Arthrodesis status Office Visit 06/27/2019 8:30a [facility] Internal Cesia Z01.818 Encounter for other Medicine - MD Antonio preprocedural Ccmob examination E66.8 Other obesity R06.02 Shortness of breath M48.02 Spinal stenosis, cervical region Office Visit 05/10/2019 4:00p Rheumatology Rodriguez Schaffer, G99.2 Myelopathy in Services Of Stacey Wilson diseases classified elsewhere M06.4 Inflammatory polyarthropathy R70.0 Elevated erythrocyte sedimentation rate Z79.1 intermediate project manager (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 polyarthropathy R79.82 Elevated C-reactive protein (CRP) R70.0 Elevated erythrocyte sedimentation rate Z79.899 Other mcc (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 polyarthropathy R79.82 Elevated C-reactive protein (CRP) R70.0 Elevated erythrocyte sedimentation rate Z79.899 Other mcc (current) drug therapy Assessments Date Code Description Provider 07/18/2019 R39.89 Other symptoms and signs involving the Carmencita Petit M.D. genitourinary system 07/18/2019 L30.9 Dermatitis, unspecified Carmencita Petit M.D. 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 episode, unspecified 07/12/2019 E11.9 Type 2 diabetes mellitus without Sepideh Anna Marie, COMMERCIAL INSTRUCTOR SUPERVISOR complications 07/12/2019 Z98.1 Arthrodesis status Sepideh Anna Marie, COMMERCIAL INSTRUCTOR SUPERVISOR 07/11/2019 F32.9 Major depressive disorder, single Sepideh [place], COMMERCIAL INSTRUCTOR SUPERVISOR episode, unspecified 07/11/2019 R73.01 Impaired fasting glucose Sepideh Anna Marie, COMMERCIAL INSTRUCTOR SUPERVISOR 07/11/2019 J45.909 Unspecified asthma, uncomplicated Sepideh Anna Marie, COMMERCIAL INSTRUCTOR SUPERVISOR 07/11/2019 Z98.1 Arthrodesis status Sepideh [place], COMMERCIAL INSTRUCTOR SUPERVISOR 06/27/2019 Z01.818 Encounter for other preprocedural Cesia Alvarez MD examination 06/27/2019 E66.8 Other obesity Cesia Alvarez MD 06/27/2019 R06.02 Shortness of breath Cesia Alvarez MD 06/27/2019 M48.02 Spinal stenosis, cervical region Cesia Alvarez MD 06/14/2019 G99.2 Myelopathy in [...] sedimentation rate Rodriguez Schaffer M.D. 05/10/2019 Z79.1 halfway (current) use of non-steroidal Rodriguez Schaffer M.D. anti-inflammatories (Nsaid) 05/10/2019 N39.41 Urge incontinence Rodriguez Schaffer M.D. 04/28/2019 M50.022 Cervical disc disorder at C5-C6 level PORTILLO Rivas with myelopathy 04/18/2019 M06.4 Inflammatory polyarthropathy Rodriguez Schaffer M.D. 04/18/2019 R79.82 Elevated C-reactive protein (CRP) Rodriguez Schaffer M.D. 04/18/2019 R70.0 Elevated erythrocyte sedimentation rate Rodriugez Schaffer M.D. 04/18/2019 Z79.899 Other mcc (current) drug therapy Rodriguez Schaffer M.D. 04/18/2019 M62.81 Muscle weakness (generalized) Rodriguez Schaffer M.D. 03/30/2019 M06.4 Inflammatory polyarthropathy Rodriguez Schaffer M.D. 03/30/2019 R79.82 Elevated C-reactive protein (CRP) Rodriguez Schaffer M.D. 03/30/2019 R70.0 Elevated erythrocyte sedimentation rate Rodriguez Schaffer M.D. 03/30/2019 Z79.899 Other mcc (current) drug therapy Rodriguez Schaffer M.D. Plan of Treatment Future Appointment(s):09/18/2019 11:50 am - Carmenc[facility].D[facility] at [facility] - PORT[facility]O Rivas at [facility]10/09/2019 1:30 pm - PORTILLO Rivas at [facility]10/17/2019 10:00 am - Royal Arizmendi M.D. at [facility]07/18/2019 - Carmencita Petit M.D.R39.89 Other symptoms and signs involving the genitourinary xillqrY28.9 Dermatitis, unspecifiedComments:it appears to be an irritation of the skin due to lying down , apply the diaper creme Functional Status Description No Information Available Mental Status Description No Information Available Referrals Refer to Dr Reason for Referral Status Appt Date Doug Thorne MD Please evaluate and treat cervical radiculopathy Sent [address] [place] [address] [phone] Christiano Puga MD Please evaluate and treat iron deficiency anemia Sent and determine cause of rising white count to see if there is a hematologic cause of anemia and leukocytosis and elevated inflammatory markers SECOND REQUEST [address] [place] [address] [phone] Anamika Elena MD please evaluate and treat patient with Scheduled 05/03/2019 asymmetric upper extremity weakness now extruded paracentral disc associated severe cervical neural foraminal stenosis [address], [place] [address] [phone] Royal Arizmendi MD Please evaluate patient with new onset left upper Sent extremity weakness, history of an inflammatory arthropathy [address] [place] [address] [phone]
[2019-08-09 12:05] LABS: Albumin 3.7 g/dL (3.2-5.2); Albumin/Globulin Ratio 1.3 (1-3); BUN/Creatinine Ratio 17.3 (8-20); Calcium 8.6 mg/dL (8.6-10.3); EGFR African American 158.8 (>60); EGFR Non-African American 131.3 (>60); Globulin 2.8 g/dL (2-4); HDL Cholesterol 35.8 mg/dL; Potassium 4.1 mmol/L (3.5-5.0); Total Bilirubin 0.4 mg/dL (0.2-1.0); Total Protein 6.5 g/dL (6.4-8.9)
[2019-08-09 13:39] LABS: Urine Appearance Clear; Urine Bilirubin Negative (Negative); Urine Blood Negative (Negative); Urine Color Yellow; Urine Glucose Negative (Negative); Urine Ketones Negative (Negative); Urine Nitrite Negative (Negative); Urine Protein Negative (Negative); Urine Specific Gravity > 1.060 (1.010-1.030); Urine Urobilinogen Negative (Negative)
[2019-08-09 13:41] LABS: Urine Bacteria Absent (Absent); Urine Red Blood Cell Trace(0-2/hpf) (Absent); Urine Squamous Epithelial Cell Present (Absent); Urine White Blood Cell Absent (Absent)
[2019-08-09] MEDS ORDERED: Aspirin TAB* 325 MG PO ONE (15:08)
[2019-08-09] MEDS ORDERED: Lorazepam PYXIS KEY PRN (16:05)
[2019-08-09] MEDS ORDERED: LORazepam INJ* 2 MG/ML 1 ML VIAL IV PUSH ONE (16:05)
[2019-08-09] MEDS ORDERED: Acetaminophen TAB* 325 MG PO PRN ×2 (16:07→17:17)
[2019-08-09] MEDS ORDERED: Lorazepam PYXIS KEY ONE (16:08)
--- NOTE | 2019-08-09 17:03 | CONS ---
NEUROLOGY CONSULTATION NOTE: DATE OF CONSULT: 08/09/19 CONSULTING PROVIDER: Dr. Mac Galindo. REASON FOR CONSULT: Stroke-like symptoms. CHIEF COMPLAINT: Left-sided numbness, swelling, and speech abnormality. HISTORY OF PRESENT ILLNESS: Ms. Guadarrama is a 38-year-old overweight female with a past medical history of obstructive sleep apnea, diabetes, depression, who presented to [facility] with sudden onset left facial numbness and dysarthria. The patient had 1 level cervical spine fusion on 07/11/[address] Elena. She stated that initially she had symptoms of left-sided weakness mostly involving the left leg and arm. The symptoms improved after surgery. However, since this morning, the patient has felt that the weakness on the left side is gradually coming back. She was last known well last night at 10 p.m. on 08/08/19. She woke up with symptoms at 7 p.m. She felt nauseated last night and knew there was something not feeling right, but she still went to sleep. Currently, the patient stated that she has had some slurred speech this morning. She talked to Dr. Elena' nurse and the nurse even noticed that the patient was having difficulty with words and she was slurring her words. The patient states that she feels like she just left the dental office with numbness inside her mouth as well as the left side of the face. NIH Stroke Scale is 1 due to reduced sensation on the left side of the face. PAST MEDICAL HISTORY: Diabetes, depression since 15 years of age. PAST SURGICAL HISTORY: Cholecystectomy, cervical spine fusion at C5-C6. MEDICATIONS: 1. Sertraline 100 mg p.o. daily. 2. Metformin 500 mg p.o. daily. 3. Meloxicam 7.5 mg p.o. daily. 4. Acetaminophen 500-1000 mg p.o. daily. ALLERGIES: BACTRIM, CEPHALEXIN, CODEINE, HYDROMORPHONE. FAMILY HISTORY: The patient is adopted. SOCIAL HISTORY: The patient is and has 2 children. 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 She was a former smoker. She used to smoke 1 pack per day for 11 years, but quit 5 years ago. She denied any alcohol use. She denied any drug use. REVIEW OF SYSTEMS: A 12-point review of systems was obtained and otherwise negative except for what was mentioned in the HPI. The patient specifically denied any visual disturbance, aphasia, swallowing difficulty, or weakness in the right upper and lower extremities. PHYSICAL EXAM: Vitals: Temperature of 98.1, pulse of 102, respiratory rate of 15, oxygen saturation of 98%, blood pressure of 161/101. The patient presented with a blood pressure of 188/100 initially and the blood pressure slowly improved. General: Well-nourished, well-developed female, in no acute distress. She is slightly concerned about her deficits. She is overweight. Head: Atraumatic, normocephalic without any obvious abnormality. Neck is supple and symmetric, but it was limited assessment of the neck due to the Liberty J collar. Eyes: Conjunctivae/corneas are clear. Cardiovascular: Regular rate and rhythm with normal S1, S2. Chest: Clear to auscultation bilaterally with no wheezing or rhonchi. Extremities: Normal range of motion with no cyanosis or edema. Skin: No skin lesions or lacerations. Psych: Broad affect, normal mood. Easy to establish rapport. Neurological Examination : Mental Status: Awake, alert, and oriented to person, place, time, and general circumstances. Her speech and language including expression, repetition , fluency, and comprehension were assessed and found to be normal. Cranial Nerves: Pupils are equal, round, and reactive to light. Extraocular muscles are intact. There is no nystagmus. She had some eye fluttering when looking towards the right because she stated that her eyes are straining and hurting. Reduced sensation to light touch on the left side of the face. There is no facial asymmetry. Tongue is symmetric and midline with no atrophy or fasciculation. She is able to hear throughout the history process. Motor Examination: 5/5 strength in the upper and lower extremities all throughout except for slight 4/5 weakness on left hip flexion. Tone is normal throughout. Sensation is intact in the extremities bilaterally. Normal vibration at the great toes. Normal proprioception. Coordination: Normal [id number] and heel-to- palacio testing. Reflexes 1+ throughout the upper and lower extremities, trace at the ankles. Gait: Deferred at this time due to the patient's acute neurological deficits. DIAGNOSTIC STUDIES/LAB DATA: WBC of 7.7, hemoglobin of 10, hematocrit of 32, platelet count of 180. INR of 0.92. Sodium of 138, potassium of 4.1, chloride of 104, BUN of 9, BUN/creatinine ratio of 17, lactic acid is 2.2, glucose of 115. Urinalysis is negative for pyuria. CT head and CTA head and neck with contrast showed no evidence of acute intracranial abnormality or hemorrhage. The CTA of the head demonstrated no branch occlusion, significant atherosclerosis, or stenosis. ASSESSMENT: Ms. Ananya Guadarrama is a 38-year-old obese female who has history of obstructive sleep apnea, status post recent fusion surgery, who developed transient dysarthria and persistent left facial numbness. She also complains of a transient episode of left-sided weakness, which seems to fluctuate. Her NIH Stroke Scale is The CT and CTA of the head and neck did not show any large vessel occlusion or acute hemorrhage. She has an NIH of 1 and therefore she is not a candidate for any tPA or endovascular therapy. 1. The working diagnosis here is we suspect that she may have had a small right thalamic or right parietal lobe ischemic infarction. Other differential diagnosis if her symptoms resolve within the next 24 hours would be transient ischemic attack, complicated painless migraine headache, or less likely to be seizures. I do not think this is predominantly coming from the cervical spine and therefore further testing for worsening cord compression will not be proceeded since she has other bulbar and cranial symptoms such as slurred speech and facial numbness. These symptoms would not be explained by a cervical cord pathology. 2. History of obstructive sleep apnea and does not use a CPAP. 3. History of diabetes, on metformin. We will have to check for vitamin B12 deficiency as this can cause unilateral paresthesias. Metformin can inhibit the absorption of vitamin B12. RECOMMENDATIONS: Admit to 24-hour observation under the hospitalist service. Please obtain an MRI of the brain without contrast to evaluate for small stroke. I do not think this is demyelinating disease since the symptoms were sudden in onset, although depending on the MRI result we may need to obtain a contrasted study if the current study does not show stroke or shows evidence of demyelinating disease. Neuro checks every 4 hours. PT/OT/AIRPLANE DISPATCHER evaluation and treatment. Obtain a 2D transthoracic echo if the MRI is positive. She will need to be on aspirin 81 mg daily. I prefer not to start her on dual antiplatelet therapy given the recent surgery. Plus we would need surgical clearance for aspirin therapy. Please discuss with Dr. Elena. Please obtain a lipid panel and start her on atorvastatin 40 mg nightly. Stroke education will be done once the MRI results. Keep her blood pressure within a permissive hypertensive range, treat to above systolic of 180 mmHg. Keep blood glucose between 100 to less than 200. Pulse oximetry overnight to evaluate for obstructive sleep apnea. I will continue to follow. Please contact me with any questions or concerns. [id number]/[facility] #: [id number] POLI
[2019-08-09] MEDS ORDERED: Enoxaparin(*) 40 MG/0.4 ML SYR SUBCUT SCH (18:00)
--- NOTE | 2019-08-09 18:17 | HP ---
CC: Dr. Carmencita Petit * HISTORY AND PHYSICAL: DATE OF ADMISSION: 08/09/19 PRIMARY CARE PROVIDER: Dr. Carmencita Petit. HEALTHCARE PROXY: Her Isra, phone number [phone]. CODE STATUS: Full. CHIEF COMPLAINT: Left-sided numbness and weakness for a few hours. HISTORY OF PRESENT ILLNESS: Ms. Gallegos is a 38-year-old woman with obesity, complicated by ARGELIA not on CPAP; diabetes; iron-deficiency anemia; unknown rheumatologic condition with elevated inflammatory markers; anxiety; depression, who is presenting with left-sided weakness and numbness since this morning. She reports that when she woke up she noticed that the left side of her face was numb and tingling, and she states that she felt like her speech was slurred. Her father confirms that her speech was slurred compared to her baseline at this time. The patient also stated that she felt like her left arm and left leg were weak; however, she did not have problems picking up objects with her left hand and she stated her gait was normal. She denies associated visual changes, chest pain, shortness of breath, skin changes, burning on urination. She states that she has had a slight headache for several days associated with dizziness and nausea. These associated symptoms have been intermittent. She also reports that she was experiencing diarrhea starting about a week ago that resolved yesterday. Of note, the patient underwent an anterior cervical diskectomy and fusion with Dr. Elena 1 month ago for large collapsed C5-C6 disk herniation, which failed conservative treatments. She tolerated the procedure well; however, she states since then she has had persistent neck pain. In the emergency room, the patient underwent head CT and CTA, which were unrevealing for etiology. Neurology service was called and was concerned for thalamic stroke, recommended admission for brain MRI and initiation of aspirin. PAST MEDICAL HISTORY: 1. Obesity, complicated by ARGELIA, not on CPAP given claustrophobia. 2. Diabetes. 3. Chronic iron-deficiency anemia from heavy menstruation. 4. Unknown rheumatologic disease. The patient follows with outpatient [facility]. Reports elevated CRP and ESR chronically. 5. Anxiety and depression. 6. History of C5-C6 disk herniation, now status post fusion with Dr. Elena on 07/11/19. 7. Hemorrhoids, requiring brief hospitalization in 2017 for GI bleed. HOME MEDICATIONS: 1. Metformin 500 mg daily. 2. Sertraline 100 mg daily. 3. Meloxicam 7.5 mg daily. 4. Tylenol 1000 mg daily as needed for pain. ALLERGIES: BACTRIM and CEPHALEXIN caused hives, CODEINE caused nausea and vomiting. FAMILY HISTORY: The patient reports she is adopted and does not know her family history. SOCIAL HISTORY: The patient report she lives at home with her Isra, who is her healthcare proxy and their 3 children. She reports an [id number] history and quit at age 32. She reports rare alcohol use and denies other drug use. 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 REVIEW OF SYSTEMS: A complete 10-point review of systems was performed and pertinent positives and negatives are listed in the HPI. PHYSICAL EXAMINATION GENERAL: She is a well-appearing, obese woman, in no acute distress, who is alert, interactive, and participates in the exam. VITAL SIGNS: Afebrile, heart rate 70s, blood pressure 128/75, respiratory rate 13, oxygen saturation 98% on room air. HEENT: With moist mucous membranes. NECK: Unable to evaluate as the patient is in C-collar. LUNGS: Clear to auscultation bilaterally. HEART: Regular rate and rhythm without murmurs, gallops, or rubs. ABDOMEN: Soft, nontender, nondistended. EXTREMITIES: Lower extremities with trace edema. Warm and well perfused. NEURO: A and O x3. 4/5 strength in the left upper and lower extremities, 5/5 in the right upper and lower extremities. CN II through XII are intact. No slurred speech. No pronator drift b/l. DIAGNOSTIC STUDIES/LAB DATA: CBC notable for hemoglobin 10.5 which is the patient's baseline with MCV 72. BMP and coags normal. LFTs normal. Lactic acid 2.2. LDL 119, HDL 36, triglycerides 170. UA not concerning for infection. Brain CT without abnormalities. CTA of head and neck without branch occlusion or significant atherosclerosis or stenosis. EKG with normal sinus rhythm, rate 73. ASSESSMENT AND PLAN: Ms. Gallegos is a 38-year-old woman with obesity; obstructive sleep apnea, not on CPAP; diabetes; unknown rheumatologic condition; chronic iron- deficiency anemia , who is presenting with acute onset of focal neuro deficits. 1. Possible cerebrovascular accident. Neuro consult appreciated. Distribution consistent with possible thalamic stroke, does not appear related to prior neurosurgical procedure. Brain MRI without contrast is pending. The patient will be admitted for telemetry service, PT evaluation and transthoracic echocardiogram with bubbles. She will continue on aspirin. 2. Diabetes. We will continue home metformin 500 mg daily and initiate a carb - controlled diet. 3. Depression and anxiety. Continue the patient's home sertraline. 4. Cervical spine pain. Continue home Tylenol as needed for pain. 5. DVT prophylaxis: Initiate enoxaparin daily. 6. Code status: Full code. TIME SPENT: Approximately 60 minutes was spent on admission of this patient, more than half of which was spent at bedside for interview and exam. [id number]/[facility] #: [id number] POLI
--- NOTE | 2019-08-09 22:29 | CONS ---
CONSULTATION NOTE: DATE OF CONSULT: 08/09/19 HISTORY OF PRESENT ILLNESS: The patient is a very pleasant 38-year-old female who underwent recently an anterior cervical diskectomy and fusion. The patient tolerated the procedure well and was able to be discharged home. She returned to the emergency room after she had one episode this morning when she woke up with left side of the face, and left upper and lower extremity numbness as well as left facial weakness, left upper and left lower extremity weakness. So, the patient underwent a CTA of the head and neck, which did not reveal any evidence of large vessel occlusion. She was kindly admitted by the hospitalist team and evaluated by Dr. Serna. The patient reports that her sensation has significantly improved. There was some mild numbness in the left side of her mouth and she feels that her weakness is significantly improved. She denies any nausea or vomiting. Denies any recent illness. Denies any fever. Denies any drainage from the wound. She has been doing extremely well. She denies any neck pain. The patient reports that she did excellent after surgery. The patient denies any urinary or GI incontinence. Denies any recent trauma. Denies any back pain. PAST MEDICAL HISTORY: Diabetes, anemia, mitral valve prolapse, asthma, sleep apnea, GERD, kidney stones, arthritis. PAST SURGICAL HISTORY: Laparoscopic cholecystectomy, myringotomy, anterior cervical diskectomy and fusion. MEDICATIONS: The patient was on acetaminophen. ALLERGIES: The patient is allergic to KEFLEX, HYDROMORPHONE, SULFA, SULFAMETHOXAZOLE, TRIMETHOPRIM, and CODEINE. FAMILY HISTORY: Noncontributory. SOCIAL HISTORY: The patient is adopted. Tobacco positive. Alcohol occasional. Recreational drug use negative. PHYSICAL EXAM: The patient is not in acute distress. She is awake, alert, and she is oriented x3. Her pupils are equal and reactive. Cranial nerve II through XII are grossly intact except decreased sensation on the left side of the face in the V1, V2, and V3 distribution symmetrically. Motor 4 to 5/5 in all extremities. No pronator drift. She has some give-away weakness on the left upper extremity and mild weakness on the left lower extremity, which is 4+/ 5. Sensory: Grossly intact to light touch except decreased sensation in the left side of her body, left upper and left lower extremity. Deep tendon reflexes +1 bilaterally. Babinski was plus/minus bilaterally. Trammell's negative on the right, positive on the left. The patient has Sharkey J collar on. She has no tenderness to palpation of the cervical, thoracic or lumbar spine. Her wound is soft, clean, and dry, healing very well. DIAGNOSTIC STUDIES/LAB DATA: The patient had CTA of the head and neck that did not reveal any vascular occlusion, however, seemed to be intact. There is good alignment of the cervical spine with good placement of the hardware. The patient had an MRI of the brain that did not reveal any significant evidence of hemorrhage, tumor or restricted diffusion. Official reading is pending. ASSESSMENT: The patient is a very pleasant 38-year-old female who is status post anterior cervical diskectomy and fusion with new onset of left-sided weakness and left-sided numbness that is improving. PLAN/RECOMMENDATIONS: The patient at this point has been admitted by Internal Medicine, by the hospitalist team, and is evaluated by Neurology by Dr. Serna. We will await for the official reading of the MRI of the brain. We will recommend an MRI of the cervical spine and follow her exam. I have explained to the patient that there will be no Neurosurgical coverage over the weekend, but we will be happy to arrange for transfer if surgical intervention is needed. I think the probability of this is very low. Thank you for allowing us to participate in the care of this patient. Please do not hesitate to contact our office in case you have any further questions or concerns regarding the care of this patient. [id number]/[facility] #: [id number] MTDD
[2019-08-10] MEDS ORDERED: Perflutren Lipid Microsphere* 3 ML VIAL ONE (08:30)
[2019-08-10] MEDS ORDERED: metFORMIN* 500 MG TAB PO SCH (09:00)
[2019-08-10] MEDS ORDERED: Aspirin 81 mg CHEW TAB* 81 MG TAB.CHEW PO SCH (09:00)
[2019-08-10] MEDS ORDERED: Sertraline* 100 MG TAB PO SCH (09:00)
[2019-08-10] MEDS ORDERED: Cyanocobalamin TAB* 500 MCG PO SCH (11:00)
--- NOTE | 2019-08-10 11:12 | ECHO ---
*[facility]* [place] [address] Fax #: [phone] Transthoracic Echocardiogram Patient: Ananya Mcclellan : 1980 Study Date: 08/10/2019 Age: 38 Gender: F HR: 83 bpm Height: 64 in /162.6 cm BSA: 2.24 m^2 Weight: 275.4 lb /125.2 kg BMI: 47.4 kg/m^2 *Compressor Station Engineer: Staci Horne [facility] *Referring Physician: * Leeann Gagnon *Reading Physician: * Howie Foster MD Indications: CVA. History: Risk factors: Former tobacco use. Diabetes mellitus. Obese. Conclusions Summary: - Left ventricle: The cavity size is normal. Systolic function is normal. The estimated ejection fraction is 55-60%. Wall motion is normal; there are no regional wall motion abnormalities. - Normal cardiac chamber sizes. - Functionally benign heart valves. - Atrial septum: A PFO is not demonstrated by color Doppler or agitated saline contrast. - There is no prior echocardiogram available to compare with at this time. Study data: Transthoracic echocardiogram. Procedure: Transthoracic echocardiography was performed. Image quality was suboptimal. Intravenous Definity , 2 mlswas administered. A bubble study was performed, images 67-68. Image enhancement administered by Sepideh, charge nuse 4S. Complete 2D, spectral Doppler, and color flow Doppler. Location: Bedside. Patient status: Inpatient. Patient room number: 447 02. Rhythm: Normal sinus rhythm. Findings Left ventricle: The cavity size is normal. Systolic function is normal. The estimated ejection fraction is 55-60%. Wall motion is normal; there are no regional wall motion abnormalities. Left ventricular diastolic function parameters are normal. Right ventricle: The cavity size is normal. Systolic function is normal. Left atrium: The atrium is normal in size. Right atrium: The atrium is normal in size. Atrial septum: A PFO is not demonstrated by color Doppler or agitated saline contrast. Mitral valve: The leaflets are normal thickness. There is no significant regurgitation. Aortic valve: Not well visualized in terms of leaflet number ascertainment. The leaflets are normal thickness. There is no evidence of stenosis. There is no significant regurgitation. Tricuspid valve: Not well visualized. No evidence of leaflet thickening. There is no significant regurgitation. Pulmonic valve: Not well visualized. There is no evidence of stenosis. There is no significant regurgitation. Aorta: Aortic arch: The aortic arch is not visualized. The aortic root appears normal. Pericardium: There is no significant pericardial effusion. Pulmonary arteries: Systolic pressure can not be accurately estimated. Systemic veins: Inferior vena cava: Not well visualized. Measurements Left ventricle Value Ref Aortic valve Value Ref JESSICA, LAX 3.8 cm 3.8 - 5.2 Elie diam, ED 2.1 cm ---- ESD, LAX 2.7 cm 2.2 - 3.5 Peak v, S 1.46 m/sec ---- FS, LAX 29 % 27 - 45 VTI, S 33.4 cm ---- PW, ED, LAX (H) 1.0 cm 0.6 - 0.9 Mean grad, S 5.0 mm Hg ---- EF 57 % 54 - 74 Peak grad, S 9.0 mm Hg ---- E', lat elie, TDI 13.8 cm/sec >=10.0 E/e', lat elie, 7 Mitral valve Value Ref TDI Peak E 0.92 m/sec ---- E', med elie, TDI 10.8 cm/sec >=7.0 Peak A 0.79 m/sec ---- E/e', med elie, 9 Decel time 214 ms ---- TDI Peak grad, D 3.4 mm Hg ---- E', avg, TDI 12.3 cm/sec Peak E/A ratio 1.2 ---- E/e', avg, TDI 7 <=14 Pulmonic valve Value Ref LVOT Value Ref Peak v, S 1.04 m/sec ---- Peak darnell, S 1.01 m/sec Peak grad, S 4.0 mm Hg ---- Mean grad, S 2 mm Hg Aortic root Value Ref Ventricular septum Value Ref Root diam 2.7 cm <4.0 IVS, ED (H) 1.0 cm 0.6 - 0.9 Ascending aorta Value Ref Right ventricle Value Ref AAo AP diam, S 2.7 cm ---- JESSICA, LAX 2.6 cm Pulmonary veins Value Ref Left atrium Value Ref Peak v, S 0.55 m/sec ---- AP dim, ES (H) 4.00 cm 2.70 - Peak v, D 0.51 m/sec ---- 3.80 Peak S/D ratio 1.1 ---- ML dim, A4C 3.4 cm A rev duration 135 ms ---- SI dim, A4C 5.1 cm Vol/bsa, ES, A/L 21 ml/m^2 16 - 34 Right atrium Value Ref SI dim, ES 5.0 cm 3.4 - 5.3 ML dim, ES, A4C 4.0 cm 2.6 - 4.4 Estimated RAP 8 mm Hg Legend: (L) and (H) abdias values outside specified reference range. Prepared and electronically signed by Howie Foster MD 08/10/2019 11:12
--- NOTE | 2019-08-10 12:08 | PN ---
Subjective Date of Service: 08/10/19 Length of Stay: 1 Days Neurology is following for transient symptoms of slurred speech and worsening of the left arm and leg weakness. Interval History: The patient's symptoms resolved yesterday around [id number]. She still has the baseline symptoms of weakness on the left side that she had before and after her spine surgery. There has been no slurred speech, word finding difficulty, or swelling around the left side of her face. She shared with me today that her face swelling on the left side after she slept on the left side. She did wake up with a feeling of neck strain on the left. This was the first time she slept on the left since her surgery. She also reports significant amount of stress lately. Both of her kids, 5 and a 6 year old, became ill after her spine surgery. She had to care for them instead of rest after surgery. She feels that all this stress built up and caused her slurred speech yesterday morning. The patient denied any headaches or neck pain. Reviewed Dr. Elena's consultation who wanted an MRI of the C spine. We don 't have a neurosurgical team in-house today or this weekend to discuss the urgency of this study. Labs, imaging, or other diagnostic testing: Hemoglobin A1c: 6.5 B12: 240 Cholesterol: 189 LDL: 119 CT and CTA head and neck - no acute intracranial abnormality or LVO. Brain MRI without contrast 08/09/2019: no areas of restricted diffusion to suggest an acute stroke. There is no evidence of mass lesions or white matter changes. Pending final read by radiology. TTE 08/10/2019: No PFO. EF 55-60%. Review of Systems: Denied CP, SOB, or palpitations. Objective Active Medications: Acetaminophen (Tylenol Tab*) 975 mg PO DAILY PRN PRN Reason: PAIN - MODERATE Aspirin (Aspirin 81 Mg Chew Tab*) 81 mg PO DAILY [facility] Last Admin: 08/10/19 09:32 Dose: 81 mg Cyanocobalamin (Vitamin B12 Tab*) 1,000 mcg PO DAILY [facility] Last Admin: 08/10/19 10:59 Dose: 1,000 mcg Enoxaparin Sodium (Lovenox(*)) 40 mg SUBCUT Q24H [facility] Last Admin: 08/09/19 20:05 Dose: 40 mg Metformin HCl (Glucophage*) 500 mg PO DAILY [facility] Last Admin: 08/10/19 09:32 Dose: 500 mg Miscellaneous (Ativan Pyxis Nieves) 1 ea N/A .ATIVAN IV NIEVES PRN PRN Reason: PYXIS NIEVES Sertraline HCl (Zoloft*) 100 mg PO DAILY [facility] Last Admin: 08/10/19 09:32 Dose: 100 mg Vital Signs 08/09/19 08/09/19 08/09/19 12:00 12:04 12:27 Temperature 98.1 F Pulse Rate 79 82 78 Respiratory 13 14 17 Rate Blood Pressure 131/82 131/82 (mmHg) O2 Sat by Pulse 97 97 98 Oximetry 08/09/19 08/09/19 08/09/19 12:34 13:00 13:15 Temperature Pulse Rate 91 79 Respiratory 18 15 15 Rate Blood Pressure 161/101 162/84 (mmHg) O2 Sat by Pulse 98 99 Oximetry 08/09/19 08/09/19 08/09/19 13:34 14:00 14:04 Temperature Pulse Rate 82 81 Respiratory 12 18 15 Rate Blood Pressure 135/87 169/85 (mmHg) O2 Sat by Pulse 100 100 Oximetry 08/09/19 08/09/19 08/09/19 14:34 15:04 15:34 Temperature Pulse Rate Respiratory 21 16 13 Rate Blood Pressure 134/90 129/76 128/75 (mmHg) O2 Sat by Pulse Oximetry 08/09/19 08/09/19 08/09/19 16:00 16:04 16:11 Temperature Pulse Rate 113 88 Respiratory 19 14 19 Rate Blood Pressure 144/75 (mmHg) O2 Sat by Pulse 98 98 Oximetry 08/09/19 08/09/19 08/09/19 16:55 17:30 19:44 Temperature 97.7 F 97.8 F 98.3 F Pulse Rate 84 88 92 Respiratory 16 14 16 Rate Blood Pressure 146/71 144/75 139/67 (mmHg) O2 Sat by Pulse 98 98 97 Oximetry 08/09/19 08/09/19 08/10/19 20:00 23:41 03:40 Temperature 98.3 F 97.7 F Pulse Rate 91 84 Respiratory 22 14 Rate Blood Pressure 148/71 139/76 (mmHg) O2 Sat by Pulse 97 98 99 Oximetry 08/10/19 08/10/19 08/10/19 07:15 08:00 11:15 Temperature 97.8 F 98.6 F Pulse Rate 76 92 Respiratory 16 14 16 Rate Blood Pressure 132/73 161/97 (mmHg) O2 Sat by Pulse 98 97 Oximetry Intake and Output Last 24 Hours 08/08/19 08/09/19 08/10/19 08/11/19 06:59 06:59 06:59 06:59 Intake Total 480 600 Output Total 0 Balance 480 600 Weight 287 lb Intake: Oral 480 600 Output: Urine 0 Oxygen Devices in Use Now: None Neurology Exam: General: Well nourished, well developed, and in no acute distress HEENT: Normocephelic/atraumatic, sclera anicteric, mucous membranes moist. MJC in place. No facial swelling. Neck: Supple Chest: Clear to auscultation bilaterally Cardiovascular: Regular rate and rhythm without murmurs, rubs, gallops Extremities: No clubbing, cyanosis, or edema Neurological Findings: Awake, alert, and oriented to person, place, and time. Speech: fluent without dysarthria, repetition intact Cranial Nerve: PERRL, EOM intact, VFF, no nystagmus, face symmetric bilaterally , facial sensation intact Motor: s/s throughout, proximal and distal extremities x4 tone/bulk normal. Give way activation on the left arm and left leg, mostly to shoulder abduction and hip flexion. Sensation: intact to LT/PP bilaterally upper and lower extremities Deep Tendon Reflex: 2+ symmetric in the upper/lower extremities, Babinski - down going Finger to nose, rapid alternating movements intact without tremor, no dysdiadochokinesia Gait: intact with good arm swing and stride Result Diagrams: 08/09/19 11:36 08/09/19 11:36 Microbiology and Other Data: Microbiology 08/09/19 13:10 Urine Culture - Preliminary Urine Strep Group B Assessment/Plan Mrs. Guadarrama is a 38-year-old female with a past medical history significant for diabetes mellitus II, obstructive sleep apnea, not using a CPAP; one level cervical fusion on 06/2019, who presented to [facility] [place] with a sudden onset transient dysarthria and worsening left hemiparesis. She also had swelling on the left side of the face that has resolved. On examination today, the patient has give-way weakness on left shoulder abduction and left knee flexion. She has not experienced any dysarthria or visual disturbance since admission. She is tolerating the aspirin without any reported side effects. MRI of the brain was not yet read by radiology, but from my review, I don't see any evidence of an acute stroke. This correlates to the patient's improved symptoms. 1. Suspect TIA to the right thalamus or right MCA vascular territory distribution based on her transient dysarthria, worsening left sided weakness and paresthesia in concomitant with hypertensive urgency. NIHSS: 0 today Risk factors: obesity, DMII, ?hypertension, and untreated ARGELIA Other differential diagnosis such as cervical spondylosis or stenosis are unlikely since she had dysarthria associated with the worsening weakness. She is now at her baseline function before and after surgery. She did not lose consciousness so I seizures are less likely. Recommendations: - Aspirin 81 mg daily - We opted not to treat with DAPT as she recently had cervical spine surgery less than one month ago. The risk of bleeding outweigh the benefit. - Start atorvastatin 40 mg nightly - Primary stroke prevention and TIA education completed today. - If she has worsening symptoms, or her reported weakness progresses, I encouraged her to come back to the ED immediately. Dr. Elena requested an MRI of the cervical spine. The patient wants to go home to spend time with her family for Thanksgiving. She feels safe to go home and to proceed with the MRI of the C spine as an outpatient. Again, she verbalized understanding to come back to the ED if she has recurrence or new neurological symptoms. - I reviewed the MRI brain imaging with the patient at bedside. - No need for anticoagulation therapy. - DVT prophylaxis: early ambulation. - Encouraged her to exercise regularly. 2. Lower range of vitamin B12: start cyanocobalamin 1,000 mcg by mouth daily. 3. Left facial swelling that has resolved- most likely related to [place] [facility] [place] her left side. 4. ARGELIA- encouraged her to see her PCP as soon as possible to get a referral to a ledger poster so she can get a CPAP machine. We discussed stroke and ND in untreated ARGELIA. Follow-up with neurology in 6-8 weeks. I will arrange an appointment.
[2019-08-10 15:35] VITALS: BP 137/83
--- NOTE | 2019-08-10 16:34 | DS ---
CC: Dr. Petit * DISCHARGE SUMMARY: DATE OF ADMISSION: 08/09/19 DATE OF DISCHARGE: 08/10/19 PRINCIPAL DISCHARGE DIAGNOSIS: Transient ischemic attack. SECONDARY DISCHARGE DIAGNOSES: 1. Stable left upper extremity weakness. 2. Untreated sleep apnea. 3. Obesity. 4. Diabetes. 5. Iron deficiency anemia. 6. Unknown rheumatologic disease. She follows with Dr. Schaffer and has chronically elevated CRP and ESR. 7. Anxiety and depression. 8. History of C5-C6 disk herniation, now status post fusion with Dr. Elena on 07/11/19. MEDICATIONS AT THE TIME OF DISCHARGE: 1. Sertraline 100 mg daily. 2. Metformin 500 mg daily. 3. Mobic 7.5 mg daily. 4. Tylenol 500 to 1000 mg daily p.r.n. pain. 5. Aspirin 81 mg daily. 6. Atorvastatin 40 mg daily. 7. Vitamin B12 1000 mcg daily. PHYSICAL EXAM AT DISCHARGE: Vital Signs: Temperature 98.3, heart rate 93, respiratory rate 16, pulse ox 97% on room air, blood pressure 137/83. General: Alert, well-appearing young woman in no distress, sitting on the edge of the bed. HEENT: Pupils equal, round, reactive to light. Oral mucosa is moist. Neck: Meade J collar is in place. Chest: She is in a regular rate and rhythm with no murmurs. Her lungs are clear bilaterally. Abdomen: Soft, nontender, nondistended. Extremities: No edema, rashes, or ulcers. Neurologic: Her face is symmetric. Her cranial nerves are intact. Her left upper extremity strength is 4/5 and her right upper extremity is 5/5, bilateral lower extremities are 5/5. Sensation is intact. Coordination is intact. CONSULTS DURING THIS ADMISSION: Included Dr. Serna and Dr. Elena. PERTINENT DIAGNOSTIC STUDIES ON THIS ADMISSION: An MRI done on 08/09/19 showed no restriction of diffusion noted due to the cervical collar, the entire head could not be placed within the head coil and therefore, signal loss is noted in the anterior portion of the brain. A head CTA on 08/09/[address] of the head demonstrates no evidence of intracranial mass or hemorrhage. CTA of the neck and head demonstrates no branch occlusion or significant atherosclerosis or stenosis. A transthoracic echocardiogram obtained on 08/09/19 showed that the LV cavity size is normal, systolic function is normal, ejection fraction is 55% to 60%, wall motion is normal and no regional wall motion abnormalities. Normal cardiac chamber sizes. Functionally benign heart valve and a PFO is not demonstrated by color Doppler or agitated saline contrast. HOSPITAL COURSE BY PROBLEM: 1. TIA. Ms. Gallegos presented on 08/09/19 with left-sided facial tingling, dysarthria and a facial droop as well as worsening left-sided numbness. She has chronic left upper extremity weakness, even proceeding her surgery with Dr. Elena a month ago and says that this has not changed until the day of admission when the weakness got worse in combination with slurred speech and lower extremity weakness. A code rice was called in the emergency department and Dr. Serna evaluated her. By the time he evaluated her in the emergency department, her dysarthria and facial numbness were resolved. He recommended admission for a TIA workup and she underwent MRI which was unremarkable as was the head CTA. She was started on aspirin and statin and an echocardiogram was also unremarkable. Her symptoms were resolved on the day of discharge. Her B12 was found to be borderline low, so she was started on B12 supplementation. The differential also includes a complex migraine, though she does not have history of migraines. Her risk factors for TIA include obesity, untreated sleep apnea, diabetes and hyperlipidemia. Dr. Elena was consulted and did not feel that her symptoms were related to her recent surgery; however, did recommend a cervical spine MRI. However, the MRI of the cervical spine was unable to be obtained over the holiday weekend and since her symptoms resolved entirely and her exam returned to baseline, which has slight left upper extremity weakness which had persisted for over a month, Dr. Serna and I felt that the C-spine MRI could be deferred until she is an outpatient. Neurosurgical evaluation is not available at the time of discharge, but as mentioned her exam and symptoms have returned to baseline. I have explained at length to her reasons to return to the emergency department including numbness, tingling, worsening weakness, any symptoms that are different from usual for her, change in vision, change in speech and she will be sure that she is not home alone over the next few days, so that she can be observed by her . 2. Borderline low B12. Given her neurologic complaints, we started her on oral B12 supplementation. 3. Untreated sleep apnea. She has been unable to tolerate CPAP and does not have the machine anymore. 4. Type 2 diabetes. Resume metformin at the time of discharge. 5. Elevated inflammatory markers. She follows with Dr. Schaffer for this, though does not have a formal diagnosis at this time. This may contribute to her risk factors for vascular disease. 6. Iron deficiency anemia. Her hemoglobin was at baseline. 7. Disposition: Ms. Gallegos is being discharged to home on 08/10/19 with her . CONDITION AT THE TIME OF DISCHARGE: Stable. [id number]/[facility] #: [id number] MTDD
[2019-08-10] MEDS ORDERED: Atorvastatin* 40 MG TAB PO ONE (16:46)
[2019-08-10] MEDS ORDERED: Atorvastatin* 40 MG TAB ONE (16:49)
== END 2019-08-10 17:05 | disposition home or self-care (01) ==
LOC: ED 10:45 → MEDTELE 16:07
PROVIDERS: ADMIT Internal Medicine; ATTEND Internal Medicine
DX: G45.9 Transient cerebral ischemic attack, unspecified (principal); R53.1 Weakness; G47.30 Sleep apnea, unspecified; E66.9 Obesity, unspecified; N92.6 Irregular menstruation, unspecified; D50.9 Iron deficiency anemia, unspecified; E11.9 Type 2 diabetes mellitus without complications; F32.9 Major depressive disorder, single episode, unspecified; M06.9 Rheumatoid arthritis, unspecified; F41.9 Anxiety disorder, unspecified; M50.222 Other cervical disc displacement at C5-C6 level; Z79.899 Other long term (current) drug therapy; Z79.82 Long term (current) use of aspirin
CPT/HCPCS: 36415; 70496; 70498; 70551; 80053; 80061; 81003; 81015; 82607; 83036; 83605; 83921; 84484; 85025; 85610; 85730; 87077; 87086; 93005; 93306; 96372; 96374; 99283; A9270-GY; C8929; G0378; J1650; J2060; Q9967

== ENCOUNTER 2019-09-21 13:28 | Emergency (ER) | payer BC ==
--- NOTE | 2019-09-21 13:52 | ED ---
Neurological HPI - HPI Summary HPI Summary: The patient is a 39 year old female presenting to [facility] [place] emergency department with a chief complaint of neurological symptoms onset yesterday. She reports that she had cervical spine surgery in June [address] Elena, and on 08/09/19, she suffered from a TIA. Her symptoms at that time included left- sided deficits with facial drooping weakness in the left extremities, and slurred speech. Her neurologist at the time was Dr. Serna. 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 Today, she went to a physical therapy appointment for her neck, and the provider noticed that she had marked weakness on the right side. She states that she began noticing the weakness yesterday, as well as facial numbness through the whole face. She has also had intermittent episodes of slurred speech, difficulty with concentration, amnesia, and aphasia. She denies any visual changes. She is not currently in any pain. She states her symptoms seemed worse yesterday compared to today. Dr. Elena is aware of her visit to the emergency department today. She takes 81mg Aspirin daily but no other anticoagulants. Past medical history is significant for diabetes, anemia, valvular heart disease, asthma. Former smoker, occasional alcohol use, no substance use. Medications reviewed. Allergies noted. - History of Current Complaint Chief Complaint: EDNeurologicalDeficit Stated Complaint: TIA SYMPTOMS PER PT Time Seen by Provider: 09/21/19 13:42 Hx Obtained From: Patient Hx Last Menstrual Period: 05/22/19 Onset/Duration: Started hours ago - yesterday, Still Present Onset Severity: Moderate Current Severity: Mild Neurological Deficit Location: RUE, RLE Pain Intensity: 0 Pain Scale Used: 0-10 Numeric Character: Weak - right-sided, Numbness/Tingling - facial, Impaired Speech - intermittent, Other: - difficulty with concentrating, amnesia, aphasia Aggravating: Unknown Alleviating: Spontanious Resolution - improved since onset Associated Signs and Symptoms: Positive: Memory Loss, Weakness, Impaired Speech - intermittent. Negative: Visual Changes TPA Considered: No - patient's symptoms began yesterday and have improved Related Hx: ASA - 81mg - Additional Pertinent History Primary Care Physician: [id number] - Allergy/Home Medications Allergies/Adverse Reactions: Allergies Allergy/AdvReac Type Severity Reaction Status Date / Time cephalexin [From Keflex] Allergy Hives Verified 07/11/19 06:29 hydromorphone Allergy Airway Verified 08/09/19 19:37 Obstruction Sulfa (Sulfonamide Allergy Hives Verified 07/11/19 06:29 Antibiotics) sulfamethoxazole Allergy Hives Verified 07/11/19 06:29 [From Bactrim] trimethoprim [From Bactrim] Allergy Hives Verified 07/11/19 06:29 codeine AdvReac Nausea And Verified 07/11/19 06:29 Vomiting Home Medications: Home Medications Albuterol 2.5MG/3ML (0.083%)* [Ventolin 2.5 MG/3 ML NEB.SENIA*] 2.5 mg INH Q6H PRN 09/21/19 [History Confirmed 09/21/19] Atorvastatin* [Lipitor 40 MG*] 40 mg PO DAILY 09/21/19 [History Confirmed ] Fluticasone/Vilanterol MDI(NF) [Breo Ellipta MDI 200/25(NF)] 1 puff INH DAILY [History Confirmed 09/21/19] PMH/Surg Hx/FS Hx/Imm Hx Endocrine/Hematology History: Reports: Hx Diabetes - pre diabetic ON METFORMIN, Hx Anemia - chronic anemia Denies: Hx Thyroid Disease Cardiovascular History: Reports: Hx Valvular Heart Disease - mitral valve prolapse Denies: Hx Deep Vein Thrombosis, Hx Hypercholesterolemia, Hx Hypertension, Hx Pacemaker/ICD Respiratory History: Reports: Hx Asthma, Hx Sleep Apnea Denies: Hx Chronic Obstructive Pulmonary Disease (COPD), Other Respiratory Problems/Disorders GI History: Reports: Hx Gall Bladder Disease - Cholecystitis 2003, Hx Gastroesophageal Reflux Disease - problems with esophagus - seeing a specialist Denies: Hx Ulcer, Other GI Disorders History: Reports: Hx Kidney Stones - many years ago Denies: Hx Renal Disease Musculoskeletal History: Reports: Hx Arthritis - chronic joint pain,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, Hx Back Problems - C-spine surgery 2019, Hx Tendonitis - many yrs ago left wrist Denies: Hx Rheumatoid Arthritis, Hx Scoliosis, Other Musculoskeletal History Sensory History: Reports: Hx Contacts or Glasses Denies: Hx Legally Blind, Hx Deafness, Hx Hearing Aid Opthamlomology History: Reports: Hx Contacts or Glasses Denies: Hx Legally Blind Neurological History: Reports: Hx Nerve Disease - Numbness/tingling in toes, Hx Transient Ischemic Attacks (TIA) Psychiatric History: Reports: Hx Anxiety, Hx Depression Denies: Hx Panic Disorder - Surgical History Surgical History: Yes Surgery Procedure, Year, and Place: lap diamond, tubes in ears, cervical spine Hx Anesthesia Reactions: Yes - itching when coming out - Immunization History Date of Tetanus Vaccine: unk Date of Influenza Vaccine: none Infectious Disease History: No Infectious Disease History: Denies: Hx Clostridium Difficile, Hx Hepatitis, Hx Human Immunodeficiency Virus (HIV), Hx Shingles, Hx Tuberculosis, Hx Known/Suspected VRE, Hx Known/ Suspected VRSA, History Other Infectious Disease, Traveled Outside the [place] in Last 30 Days - Family History Known Family History: Positive: Diabetes - Social History Alcohol Use: Occasionally Alcohol Amount: social Hx Substance Use: No Substance Use Type: Reports: None Hx Tobacco Use: Yes Smoking Status (MU): Former Smoker Type: Cigarettes Amount Used/How Often: pack a day for 15 yrs Length of Time of Smoking/Using Tobacco: 12 yrs Have You Smoked in the Last Year: No Review of Systems Negative: Blurred Vision Neurological: Other - difficulty concentrating, amnesia, aphasia Positive: Weakness - right-sided, Numbness - bilateral face, Slurred Speech - intermittent All Other Systems Reviewed And Are Negative: Yes Physical Exam - Summary Physical Exam Summary: VITAL SIGNS: Reviewed. GENERAL: Patient is a well-developed and nourished female who is lying comfortable in the stretcher. Patient is not in any acute respiratory distress. HEAD AND FACE: No signs of trauma. No ecchymosis, hematomas or skull depressions. No sinus tenderness. EYES: PERRLA, EOMI x 2, No injected conjunctiva, no nystagmus. No photophobia. EARS: Hearing grossly intact. Ear canals and tympanic membranes are within normal limits. MOUTH: Oropharynx within normal limits. NECK: Supple, trachea is midline, no adenopathy, no JVD, no carotid bruit, no c- spine tenderness, neck with full ROM. No meningeal signs, no Kernig's or brudzinskis signs. CHEST: Symmetric, no tenderness at palpation. LUNGS: Clear to auscultation bilaterally. No wheezing or crackles. CVS: Regular rate and rhythm, S1 and S2 present, no murmurs or gallops appreciated. ABDOMEN: Soft, non-tender. No signs of distention. No rebound, no guarding, and no masses palpated. Bowel sounds are normal. EXTREMITIES: FROM in all major joints, no edema, no cyanosis or clubbing. NEURO: Alert and oriented x 3. No acute neurological deficits. Left-sided weakness chronic to previous TIA. Speech is normal and follows commands. SKIN: Dry and warm. GCS: 15. Triage Information Reviewed: Yes Vital Signs On Initial Exam: Initial Vitals Temp Pulse Resp BP Pulse Ox 98.4 F 86 18 172/101 100 09/21/19 13:29 09/21/19 13:29 09/21/19 13:29 09/21/19 13:29 09/21/19 13:29 Vital Signs Reviewed: Yes - Slater Coma Scale Best Eye Response: 4 - Spontaneous Best Motor Response: 6 - Obeys Commands Best Verbal Response: 5 - Oriented Coma Scale Total: 15 Procedures - Sedation Patient Received Moderate/Deep Sedation with Procedure: No Diagnostics - Vital Signs Vital Signs Temp Pulse Resp BP Pulse Ox 09/21/19 13:29 98.4 F 86 18 172/101 100 - Laboratory Result Diagrams: 09/21/19 14:08 09/21/19 14:08 Lab Statement: Any lab studies that have been ordered have been reviewed, and results considered in the medical decision making process. - CT Brain CT CT Interpretation Completed By: Radiologist Summary of CT Findings: Impression: No evidence of intracranial mass or hemorrhage is noted. ED physician has reviewed this report. - EKG 1416 Cardiac Rate: NL - 74 bpm EKG Rhythm: Sinus Rhythm Summary of EKG Findings: An EKG at 1416 reveals normal sinus rhythm at [address] elevations. ED physician has reviewed and interpreted this EKG. NIH Scale - NIH Scale Level of Consciousness: Alert/Keenly Responsive Ask Patient the Month and His/Her Age: Both Correct Ask Pt to Open/Close Eyes and Java User Interface Developer/Release Non-Paretic Hand: Both Correctly Best Gaze (Only Horizontal Eye Movement): Normal Visual Field Testing: No Visual Loss Facial Paresis-Pt to Smile & Close Eyes or Grimace Symmetry: Normal/Symmetrical Motor Function - Right Arm: No Drift-Holds 10 Seconds Motor Function - Left Arm: No Drift-Holds 10 Seconds Motor Function - Right Leg: No Drift-Holds 10 Seconds Motor Function - Left Leg: No Drift-Holds 10 Seconds Limb Ataxia-Must be out of Proportion to Weakness Present: Absent Sensory (Use Pinprick to Test Arms/Legs/Trunk/Face): Normal Best Language (Describe Picture, Name Items): No Aphasia Dysarthria (Read Several Words): Normal Extinction and Inattention: No Abnormality Total Score: 0 Re-Evaluation - Re-Evaluation First Eval Re-Evaluation Time: 17:00 Comment: We discussed results and plan for discharge. Course/Dx - Course Assessment/Plan: The patient is a 39 year old female presenting to [facility] [place] [facility] emergency department with a chief complaint of neurological symptoms onset yesterday. She reports that she had cervical spine surgery in June [address] Elena, and on 08/09/19, she suffered from a TIA. Her symptoms at that time included left-sided deficits with facial drooping weakness in the left extremities, and slurred speech. Her neurologist at the time was Dr. Serna. 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 Today, she went to a physical therapy appointment for her neck, and the provider noticed that she had marked weakness on the right side. She states that she began noticing the weakness yesterday, as well as facial numbness through the whole face. She has also had intermittent episodes of slurred speech, difficulty with concentration , amnesia, and aphasia. She denies any visual changes. She is not currently in any pain. She states her symptoms seemed worse yesterday compared to today. Dr. Elena is aware of her visit to the emergency department today. She takes 81mg Aspirin daily but no other anticoagulants. Past medical history is significant for diabetes, anemia, valvular heart disease, asthma. Former smoker , occasional alcohol use, no substance use. Medications reviewed. Allergies noted. Blood work without a significant abnormality. Urinalysis contaminated, therefore we will send for urine culture. EKG shows normal sinus rhythm. Head CT impression: No evidence of intracranial mass or hemorrhage. I discussed the case with Dr. Serna from neurology, and he will consult for this patient. After Dr. Bauer consultation, he recommends for the patient to be discharged home with the recommendations to increase her Aspirin to 162mg a day and to resume her statin. Dr. Serna thinks he patient has paresthesias. He recommends for the patient to be discharged home and follow up with Dr. Arizmendi. Patient is hemodynamically stable alert and oriented 3. Patient reports that all her symptoms are resolved. - Differential Dx Differential Diagnoses Neuro: Positive: Anxiety, Carbon Monoxide Poisoning, Cerebrovascular Accident, Dysrhythmia, Seizure Disorder, Transient Ischemic Attack - Diagnoses Provider Diagnoses: Paresthesia - Physician Notifications Discussed Care Of Patient With: Zi Serna - neurology Time Discussed With Above Provider: 14:30 Instructed by Provider To: MD Will See In ED - Dr. Serna will consult for the patient. After his evaluation, he recommends increasing her aspirin dose to 162mg and to resume the statin she was on. He believes she is experiencing paresthesias. Discharge ED - Sign-Out/Discharge Documenting (check all that apply): Patient Departure - Patient will be discharged home. - Discharge Plan Condition: Stable Disposition: HOME Patient Education Materials: Paresthesia (ED) Referrals: Carmencita Petit MD [Primary Care Provider] - 3 Days Royal Arizmendi MD [Medical Doctor] - 3 Days Additional Instructions: Follow up with Dr. Arizmendi from neurology and your primary care provider in 2-3 days. Return to the emergency department for any new or worsening symptoms. - Billing Disposition and Condition Condition: STABLE Disposition: Home - Attestation Statements Document Initiated by Tamara: Yes Documenting Scribe: Samaria Baptiste Provider For Whom Tamara is Documenting (Include Credential): Dr. Jarocho Oscar MD Scribe Attestation: Samaria Bhandari scribed for Dr. Jarocho Oscar MD on 09/21/19 at 2155. Scribe Documentation Reviewed: Yes Provider Attestation: The documentation as recorded by the Samaria monterroso accurately reflects the service I personally performed and the decisions made by me, Dr. Jarocho Oscar MD Status of Scrhernandez Document: Viewed
--- OUTSIDE RECORDS SUMMARY | 2019-09-21 14:27 | XMS REPORT | Continuity of Care Document ---
:1980 External Reference #:[id number] Author Name Lior Llanes M.D. Address [address] [place] [address] Care Team Providers Name Role Phone Carmencita Petit M.D. - Internal Care Team Information Hazard Mitigation Officer Medicine Anamika Elena - Neurological Care Team Information Hazard Mitigation Officer Unavailable Surgery Problems Active Problems Provider Date Arthritis Lior Llanes M.D. Onset: 06/06/2019 Spinal stenosis Onset: Diabetes mellitus Onset: Note: pre-diabetic H/O: TIA Onset: Social History Type Date Description Comments Sex Unknown ETOH Use Occasionally consumes alcohol Tobacco Use Start: Unknown End: Patient is a former smoker Unknown Recreational Drug Use Denies Drug Use Smoking Status Reviewed: 09/11/19 Patient is a former smoker Allergies, Adverse Reactions, Alerts Active Allergies Reaction Severity Comments Date Codeine 06/06/2019 Bactrim 06/06/2019 Keflex 06/06/2019 Hydromorphone 09/11/2019 Inactive Allergies NKDA 06/06/2019 Medications Active Medications SIG Qnty Indications Ordering Provider Date Sertraline HCL take 1 tablet by Unknown 100mg mouth once daily Tablets Metformin HCL 1 by mouth every Unknown 500mg day Tablets Meloxicam Take 1 Tablet By Unknown 7.5mg Tablets Mouth as needed Atorvastatin Calcium Take 1 Tablet By Unknown 40mg Mouth Daily AT Tablets 5PM Aspirin Low Dose Chew And Swallow Unknown 81mg 1 Tablet By Mouth Chewtabs Daily Immunizations Description No Information Available Vital Signs Description No Information Available Results Description No Information Available Procedures Date Code Description Status 06/06/2019 92972 New Patient Comprehensive Exam Completed Medical Devices Description No Information Available Encounters Description No Information Available Assessments Date Code Description Provider 09/11/2019 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 09/11/2019 E11.9 Type 2 diabetes mellitus without Lior Llanes M.D. complications 06/06/2019 B30.8 Other viral conjunctivitis Lior Llanes M.D. 06/06/2019 E11.9 Type 2 diabetes mellitus without Lior Llanes M.D. complications Plan of Treatment Future Appointment(s):06/11/2020 1:00 pm - Lior Llanes M.D. at [facility] Molina MD, 09/11/2019 - Lior Llanes M.D.G51.4 Facial myokymiaComments: Smoking can increase the risk of developing or worsening any eye related disease , as well as affect your overall health. If you are a smoker, we strongly recommend that you quit.If you are not a smoker, we strongly recommend that you do not start.Follow up:2 Week Follow Up At your next visit, we are not planning to dilate your eyes. However, if you haveany changes in your vision or new symptoms, there are certain situations that require us to dilate your eyes. If Dr. Llanes requests any additional testing, that may require extra time. If you have any questions before your next appointment, please call our office at .E11.9 Type 2 diabetes mellitus without complicationsComments: You have diabetes. I do not detect any changes in both of your retinas from diabetes at this time. Proper control of your diabetes is important for the health of your eyes. Changes in your eyes from diabetes can happen without symptoms, so it is important that you have your eyes examined. Functional Status Description No Information Available Mental Status Description No Information Available Referrals Description No Information Available
--- OUTSIDE RECORDS SUMMARY | 2019-09-21 14:27 | XMS REPORT | Continuity of Care Document ---
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 Unknown 11 years Smoking Status Reviewed: 08/29/19 Former Cigarette Smoker Smoked 3/4 ppd for 11 years ETOH Use Rarely consumes alcohol Tobacco Use Start: Unknown End: Patient is a former Unknown smoker Recreational Drug Use Denies Drug Use Exercise Type/Frequency Does not exercise Allergies, Adverse Reactions, Alerts Active Allergies Reaction Severity Comments Date Codeine stomach issue 10/19/2016 Cephalexin hives 10/19/2016 Bactrim hives 10/19/2016 Hydromorphone Difficulty breathing Severe 08/18/2019 Medications Active Medications SIG Qnty Indications Ordering Date Provider Yahaira Powell 1 puff inhaled 60units J45.909 Ivon 08/18/2019 daily John, PIT CLERK 100-25mcg/Inh Aerosol MJ Collar When out of bed G99.2 Vassilios 06/09/2019 until surgery MD Kassy Zoloft 1 by mouth every 90tabs Z79.899 Rodriguez Schaffer, 04/18/2019 100mg Tablets day M.D. Glucophage Take 1 tab by 90tabs Cesia Alvarez, 04/10/2019 500mg mouth once daily Tablets Meloxicam take one tab 30tabs M06.4 Rodriguez Schaffer, 11/03/2018 7.5mg Tablets daily as needed M.D. for pain, avoid other nsaids Pulmicort 9 Has Not Needed 180ml Carmencita Petit, 10/10/2018 0.25mg/2ML ) 1 unit M.D. Suspension nebulizer twice a day Albuterol Sulfate four times a day 90ml J45.901 Carmencita Petit, 09/26/2018 as needed M.D. (2.5mg/3ML) 0.083% Nebulizer Ventolin HFA 1 unit puff every 8gm J45.20 Marie Khan, 01/12/2018 6 hours as needed 108(90Base) mcg/Act Aerosol Vitamin B12 1 by mouth every Unknown 500mcg day Tablets Aspirin Low Dose Chew And Swallow Unknown 81mg 1 Tablet By Mouth Chewtabs Daily Atorvastatin Calcium Take 1 Tablet By Unknown Mouth Daily AT 40mg Tablets 5PM [facility] Acetaminophen 2 tab every 8 Unknown [...] daily ongoing Gabapentin take one 30caps Rodriguez Cantrelldor, 04/13/2019 - 300mg Capsules capsule/tablet by M.Santiago 04/18/2019 mouth at night for 1 week then 1 twice daily ongoing Prednisone Every Day Unknown 04/10/2019 - 20mg Tablets 04/27/2019 Methotrexate Sodium Weekly Unknown 04/08/2019 - 2.5mg 04/18/2019 Tablets Valium Bedtime 3tabs Unknown 04/08/2019 - 5mg Tablets 04/18/2019 Methotrexate take 4 30tabs Rodriguez Sarbjit, 03/30/2019 - 2.5mg capsules/tablets by M.DZachary 04/18/2019 Tablets mouth once weekly on Folic Acid take one 90tabs Rodriguez Sarbjit, 03/30/2019 - 1mg Tablets capsule/tablet M.Santiago 04/27/2019 daily by mouth Immunizations CPT Code Status Date Vaccine Lot # [id number] Refused 10/06/2017 Influenza Virus Vaccine, Quadrivalent, Split, Preservative Free Vital Signs Date Vital Result Comment 08/29/2019 12:32pm Height 64 inches 5'4" Weight 228.00 lb with shoes Heart Rate 88 /min BP Systolic 120 mmHg Ra BP Diastolic 84 mmHg Ra BP Systolic Sitting 126 mmHg LA BP Diastolic Sitting 86 mmHg LA BP Systolic Standing 110 mmHg LA BP Diastolic Standing 80 mmHg LA BMI (Body Mass Index) 39.1 kg/m2 Ejection Fraction 55-60% Echo 08/10/19 08/18/2019 11:10am Height 64 inches 5'4" Weight 247.00 lb Heart Rate 88 /min BP Systolic 110 mmHg BP Diastolic 76 mmHg Body Temperature 97.9 F Pain Level 0 no pain today but discomfort due to collar O2 % BldC Oximetry 94 % BMI (Body Mass Index) 42.4 kg/m2 Results Test Acquired Facility Test Result H/L Range Note Date Lupus 08/17/2019 [facility] Lupus See Comment [address] Anticoagulant [address] Inter [phone] Prothrombin Time(Lac) 11.7 sec 9.4 - 12.5 Lac Inr 1.1 0.9-1.1 2 Lac Aptt 32 sec 25 - 37 DRVVT Screen Ratio 0.99 ratio <1.20 3 Cardiolipin 08/17/2019 [facility] Phospholipid Ab < 9.4 MPL 4 Igg/Igm [address] IgM, [place] [address] [phone] Phospholipid Ab IgG < 9.4 GPL 5 Activated Protein C 08/17/2019 [facility] Act Protein C 2.7 > or=2.[address] [place] [address] [phone] Act Protein C Resist Interp See Comment 6 Laboratory test 08/17/2019 [facility] Factor V 87 % 70 - 165 7 [place] [address] [phone] Factor II 08/17/2019 [facility] Prothrombin Negative Negative (Prothrombin) Mutation Genoty [place], [place] 1476487 [phone] Prothrombin [id number] Interp See Comment 8 Prothrombin Mutation Review By See Comment 9 Laboratory test 08/09/2019 [facility] Methylmalonic 0.11 <= 0.40 10 finding Acid Mma nmol/mL [place], [place] [id number] [phone] Urine Culture 08/09/2019 [facility] Urine Culture SEE 11 [place] [address] BELOW [phone] Laboratory test 08/09/2019 [facility] Vitamin B12 240 pg/mL Normal 180-914 12 finding [place], [place] 5163790 [phone] Hemoglobin A1c (Glyco HGB) 6.5 % High 4.0-5.6 13 Urinalysis Profile 08/09/2019 [facility] Urine Color Yellow [place], [place] [address] [phone] Urine Appearance Clear Urine Specific [place] > 1.060 High 1.010-1.030 Urine pH 5.0 Normal 5-9 Urine Urobilinogen Negative Negative Urine Ketones Negative Negative Urine Protein Negative Negative Urine Leukocytes 1+ Abnormal Negative Urine Blood Negative Negative Urine Nitrite Negative Negative Urine Bilirubin Negative Negative Urine Glucose Negative Negative Urine White Blood Cell Absent Absent Urine Red Blood Cell Trace(0-2/hpf) Absent Urine Bacteria Absent Absent Urine Squamous Epithelial Cell Present Abnormal Absent Laboratory 08/09/2019 [facility] Lactic Acid 2.2 Critical 0.5- 2.0 14 test finding mmol/L high [place], [place] [id number] [phone] Lipid Profile 08/09/2019 [facility] Triglycerides 170 mg/dL 15 (Trig/Chol/HD [address] L) [place] [address] [phone] Cholesterol 189 mg/dL 16 HDL Cholesterol 35.8 mg/dL 17 LDL Cholesterol 119 mg/dL 18 Comp Metabolic 08/09/2019 [facility] Sodium 138 mmol/L Normal 135-[address] [place] [address] [phone] Potassium 4.1 mmol/L Normal 3.5-5.0 Chloride 104 mmol/L Normal 101-111 Co2 Carbon Dioxide 26 mmol/L Normal 22-32 Anion Gap 8 mmol/L Normal 2-11 Glucose 115 mg/dL High 70-100 Blood Urea Nitrogen 9 mg/dL Normal 6-24 Creatinine 0.52 mg/dL Normal 0.51-0.95 BUN/Creatinine Ratio 17.3 Normal 8-20 Calcium 8.6 mg/dL Normal 8.6-10.3 Total Protein 6.5 g/dL Normal 6.4-8.9 Albumin 3.7 g/dL Normal 3.2-5.2 Globulin 2.8 g/dL Normal 2-4 Albumin/Globulin Ratio 1.3 Normal 1-3 Total Bilirubin 0.40 mg/dL Normal 0.2-1.0 Alkaline Phosphatase 58 U/L Normal 34-104 Alt 29 U/L Normal 7-52 Ast 22 U/L Normal 13-39 Egfr Non- 131.3 >60 Egfr 158.8 >60 19 Laboratory test 08/09/2019 [facility] Partial 35.0 Normal 26.0 -38.[address] [place] [address] Time PTT [phone] Troponin-I (TnI) 0.00 ng/mL <0.03 20 Inr/Protime 08/09/2019 [facility] Inr 0.92 Normal 0.82-1.[address] [place] [address] [phone] CBC Auto Diff 08/09/2019 [facility] White Blood 7.7 Normal 3.5 -10.[address] Count 10^3/[place] [address] [phone] Red Blood Count 4.45 10^6/uL Normal 3.70-4.87 Hemoglobin 10.5 g/dL Low 12.0-16.0 Hematocrit 32 % Low 35-47 Mean Corpuscular Volume 72 fL Low 80-97 22 Mean Corpuscular Hemoglobin 24 pg Low 27-31 Mean Corpuscular HGB Conc 33 g/dL Normal 31-36 Red Cell Distribution Width 17 % High 10-15 Platelet Count 180 10^3/uL Normal 150-450 Mean Platelet Volume 8.1 fL Normal 7.4-10.4 Abs Neutrophils 5.2 10^3/uL Normal 1.5-7.7 Abs Lymphocytes 1.9 10^3/uL Normal 1.0-4.8 Abs Monocytes 0.4 10^3/uL Normal 0-0.8 Abs Eosinophils 0.2 10^3/uL Normal 0-0.6 Abs Basophils 0.0 10^3/uL Normal 0-0.2 Abs Nucleated RBC 0.0 10^3/uL Granulocyte % 67.7 % Lymphocyte % 24.2 % Monocyte % 4.9 % Eosinophil % 2.6 % Basophil % 0.6 % Nucleated Red Blood Cells % 0.1 Laboratory test 07/11/2019 [facility] Point of 122 mg/dL High 70-100 [address] [place] [address] [phone] Urinalysis 07/08/2019 [facility] Urine Color Colorless Profile [address] [place] [address] [phone] Urine Appearance Clear Urine Specific [place] 1.002 Low 1.010-1.030 Urine pH 6.0 Normal 5-9 Urine Urobilinogen Negative Negative Urine Ketones Negative Negative Urine Protein Negative Negative Urine Leukocytes Negative Negative Urine Blood Negative Negative Urine Nitrite Negative Negative Urine Bilirubin Negative Negative Urine Glucose Negative Negative Urine Culture And 07/08/2019 [facility] Urine SEE RESULT [address] Culture BELOW [place], [place] [address]34 [phone] Laboratory test 07/05/2019 [facility] Partial 37.6 seconds Normal 26.[address] Thrombo -38. [place] [address] Time PTT 0 [phone] Inr/Protime 07/05/2019 [facility] Inr 0.99 Normal 0.[address] -1.0 [place] [address] [phone] Urine Culture And 06/29/2019 [facility] Urine SEE RESULT [address] [place] [address] [phone] Type & Screen 06/29/2019 [facility] Patient A Positive [address] Blood Type [place], [place] [address] [phone] Antibody Screen NEGATIVE Laboratory 06/29/2019 [facility] Partial 43.4 High 26.0-38.0 test finding [address] [place] [address] Time PTT [phone] Inr/Protime 06/29/2019 [facility] Inr 1.03 Normal 0.82-1.[address] [place] [address] [phone] CBC No Diff 06/29/2019 [facility] White Blood 10.5 Normal 3.5- 10.[address] Count 10^3/[place] [address] [phone] Red Blood Count 4.93 10^6/uL High 3.70-4.87 Hemoglobin 11.5 g/dL Low 12.0-16.0 Hematocrit 36 % Normal 35-47 Mean Corpuscular Volume 72 fL Low 80-97 Mean Corpuscular Hemoglobin 23 pg Low 27-31 Mean Corpuscular HGB Conc 32 g/dL Normal 31-36 Red Cell Distribution Width 17 % High 10-15 Platelet Count 228 10^3/uL Normal 150-450 Mean Platelet Volume 8.6 fL Normal 7.4-10.4 Laboratory test 06/29/2019 [facility] HCG < 0.60 mIU/ mL [address] [place] [address] [phone] Urinalysis Profile 06/29/2019 [facility] Urine Color Yellow [address] [place] [address] [phone] Urine Appearance Cloudy Urine Specific [place] 1.019 Normal 1.010-1.030 Urine pH 5.0 Normal [...] Cell Present Abnormal Absent Basic Metabolic 06/29/2019 [facility] Sodium 137 mmol/L Normal 135-[address] [place] [address] [phone] Potassium 4.2 mmol/L Normal 3.5-5.0 Chloride 101 mmol/L Normal 101-111 Co2 Carbon Dioxide 29 mmol/L Normal 22-32 Anion Gap 7 mmol/L Normal 2-11 Glucose 76 mg/dL Normal 70-100 Blood Urea Nitrogen 8 mg/dL Normal 6-24 Creatinine 0.58 mg/dL Normal 0.51-0.95 BUN/Creatinine Ratio 13.8 Normal 8-20 Calcium 9.5 mg/dL Normal 8.6-10.3 Egfr Non- 115.7 >60 Egfr 140.0 >60 30 CBC Auto 06/27/2019 [facility] White Blood 10.6 10^3/uL Normal 3.5-10.[address] [place] [address] [phone] Red Blood Count 4.89 10^6/uL High 3.70-4.87 Hemoglobin 11.6 g/dL Low 12.0-16.0 Hematocrit 36 % Normal 35-47 Mean Corpuscular Volume 73 fL Low 80-97 31 Mean Corpuscular Hemoglobin [...] Blood Cells % 0.1 Comp Metabolic 06/27/2019 [facility] Sodium 137 mmol/L Normal 135-145 Panel 101 [place] [address] [phone] Potassium 4.6 mmol/L Normal 3.5-5.0 Chloride 102 [...] Egfr Non- 115.7 >60 Egfr 140.0 >60 32 Laboratory test 06/27/2019 [facility] Hemoglobin A1c 6.4 % High 4.0-5.6 33 finding 101 (Glyco HGB) [place] [address] [phone] Urinalysis 05/11/2019 [facility] Urine Color Genna Profile [address] [place] [address] [phone] Urine Appearance Turbid Urine Specific [place] 1.015 Normal 1.010-1.030 Urine pH 5.0 Normal 5-9 Urine Urobilinogen Negative Negative Urine Ketones Negative Negative Urine Protein Negative Negative Urine Leukocytes Negative Negative Urine Blood Negative Negative Urine Nitrite Negative Negative Urine Bilirubin Negative Negative Urine Glucose Negative Negative Laboratory test 05/11/2019 [facility] Erythrocyte Sed 35 mm/Hr High 0-[address] [place] [address] [phone] Comp Metabolic 05/11/2019 [facility] Sodium 137 Normal 135- 145 Panel 101 mmol/[place] [address] [phone] Potassium 4.4 mmol/L Normal 3.5-5.0 Chloride 105 [...] Egfr Non- 118.1 >60 Egfr 142.9 >60 34 CBC Auto 05/11/2019 [facility] White Blood 8.6 10^3/uL Normal 3.5-10.[address] [place] [address] [phone] Red Blood Count 4.96 10^6/uL High 3.70-4.87 Hemoglobin 11.5 g/dL Low 12.0-16.0 Hematocrit 36 % Normal 35-47 Mean Corpuscular Volume 73 fL Low 80-97 35 Mean Corpuscular Hemoglobin 23 pg Low 27-31 [...] Blood Cells % 0.0 Laboratory test 05/11/2019 [facility] C Reactive 16.04 mg/L High <8.[address] [place] [address] [phone] Iron & Iron 04/26/2019 [facility] Iron 33 g/dL Low 50-212 Binding Capacity [address] [place], [place] [address] [phone] Unsaturated Iron Binding < 451 g/dL Total Iron Binding Capacity 466 g/dL High 250-450 Transferrin 333 mg/dL Normal 203-362 % Iron Saturation 7 % Low 15-55 Vitamin B12 04/26/2019 [facility] Vitamin B12 334 pg/mL Normal 180-914 [address] [place] [address] [phone] Folic Acid (Folate) 18.08 ng/mL >3.99 Laboratory test 04/26/2019 [facility] Ferritin 21.0 Normal 11- [address] ng/[place] [address] [phone] Laboratory test 04/14/2019 [facility] Erythrocyte Sed 31 mm/Hr High 0-[address] [place] [address] [phone] C Reactive Protein 11.99 mg/L High <8.01 CBC Auto 04/14/2019 [facility] White Blood 13.7 10^3/uL High 3.5-10.[address] [place] [address] [phone] Red Blood Count 4.59 10^6/uL Normal 3.70-4.87 Hemoglobin 10.7 g/dL Low 12.0-16.0 Hematocrit 33 % Low 35-47 Mean Corpuscular Volume 72 fL Low 80-97 37 Mean Corpuscular Hemoglobin 23 pg Low 27-31 [...] Blood Cells % 0.1 Comp Metabolic 04/14/2019 [facility] Sodium 139 mmol/L Normal 135-[address] [place] [address] [phone] Potassium 4.2 mmol/L Normal 3.5-5.0 Chloride 104 [...] Egfr Non- 88.8 >60 Egfr 107.4 >60 38 CBC Auto 04/10/2019 [facility] White Blood 11.2 10^3/uL High 3.5-10.[address] [place] [address] [phone] Red Blood Count 5.05 10^6/uL High 3.70-4.87 Hemoglobin 11.5 g/dL Low 12.0-16.0 Hematocrit 36 % Normal 35-47 Mean Corpuscular Volume 72 fL Low 80-97 39 Mean Corpuscular Hemoglobin 23 pg Low 27-31 [...] Blood Cells % 0.0 Comp Metabolic 04/10/2019 [facility] Sodium 135 mmol/L Normal 135-[address] [place] [address] [phone] Potassium 4.4 mmol/L Normal 3.5-5.0 Chloride 101 [...] Egfr Non- 103.3 >60 Egfr 125.0 >60 40 Laboratory test 04/10/2019 [facility] C Reactive 8.82 mg/L High <8.[address] [place] [address] [phone] 1 No evidence of a lupus anticoagulant based on results of Prothrombin Time (PT), Activated Partial Thromboplastin Time (APTT), and Dilute Russells Viper Venom Time (DRVVT). Interpretation not reviewed by physician. 2 ADDITIONAL INFORMATION Standard intensity warfarin therapeutic range: 2.0 to 3.0 High intensity warfarin therapeutic range: 2.5 to 3.5 3 Test Performed by: [place] [address] Clinical Quality Rn: Jus Polo M.D. Ph.D.; CLIA# [id number] 4 REFERENCE VALUE <15.0 (Negative) 5 REFERENCE VALUE <15.0 (Negative) Test Performed by: [facility] [address] [place] [address] Clinical Quality Rn: Jus Polo M.D. Ph.D.; CLIA# [id number] 6 No evidence of resistance to Activated Protein C (APC). Normal result of APC resistance (APCRV) assay virtually excludes the patient as a carrier for the factor V Leiden mutation. Thus DNA based testing for factor V Leiden mutation is not indicated. Note: The APCRV assay has greater than 99% sensitivity for detecting presence of factor V Leiden mutation. Discrepant results of plasma based activated protein C resistance ratio (APCRV) and DNA based factor V Leiden testing may occur in recipients of liver or allogeneic hematopoietic stem cell transplants, or due to anticoagulant effects such as excess heparin, direct thrombin inhibitors argatroban (Acova), bivalirudin (Angiomax) or dabigatran (Pradaxa) or direct factor Xa inhibitors rivaroxaban (Xarelto), apixaban (Eliquis) and edoxaban (Savaysa) or a sample mix up. Suggest clinical correlation. Test Performed by: [address] [address] Clinical Quality Rn: Jus Polo M.D. Ph.D.; CLIA# [id number] 7 ADDITIONAL INFORMATION This test has been modified from the newsstand vendor's instructions. Its performance characteristics were determined by [facility] in a manner consistent with CLIA requirements. This test has not been cleared or approved by the U.S. Food and Drug Administration. Test Performed by: [facility] [place] [address] Clinical Quality Rn: Jus Polo M.D. Ph.D.; CLIA# [id number] 8 This individual DOES NOT have the Prothrombin [id number] mutation. Although the Prothrombin [id number] mutation is absent, the individual may have other genetic and environmental risk factors for thrombosis. Consider genetic consultation and counseling of potentially affected family members regarding laboratory testing. ADDITIONAL INFORMATION This test is a direct mutation analysis using PCR amplification, signal generation and release by cleavage of sequence specific alleles ([employer], [employer], [place], [place]). This test has been modified from the newsstand vendor's instructions. Its performance characteristics were determined by [facility] in a manner consistent with CLIA requirements. This test has not been cleared or approved by the U.S. Food and Drug Administration. 9 RESULT: Kishan Knott M.D. Test Performed by: [facility] [place] [address] Clinical Quality Rn: Jus Polo M.D. Ph.D.; CLIA# [id number] 10 ADDITIONAL INFORMATION This test was developed and its performance characteristics determined by [facility] in a manner consistent with CLIA requirements. This test has not been cleared or approved by the U.S. Food and Drug Administration. Test Performed by: [place] [address] Clinical Quality Rn: Jus Polo M.D. Ph.D.; CLIA# [id number] 11 SEE RESULT BELOW Name: ANANYA FELICIANO : [address]: Keli Mendoza DO Acct: [id number] Unit: [id number] AGE: 38 Location: [place] [address] Re08/09/19 Dis: 08/10/19 SEX: F Status: DIS Bren SPEC: [id number] RAVEN: 08/09/[address]: Mac Galindo MD REQ: [id number] RECD: 08/09/19 STATUS: VENUS SMITH DR: Carmencita Petit MD _ SOURCE: URINE SPDESC: ORDERED: Urine Culture Procedure Result Reported Site Urine Culture Final 08/11/19- 1122 ML Organism 1 STREP GROUP B [place] Count 10-25,000 (Moderate) CFU/ML Organism 2 NORMAL GABBY [place] Count 10-25,000 (Moderate) CFU/ML Susceptibility testing of penicillins and other B-lactams approved by FDA for treatment of Streptococcus pyogenes (Group A Strep) and Streptococcus agalactiae (Group B Strep) is not necessary for clinical purposes and need not be done routinely, since as with vancomycin, resistant strains have not been recognized. (CLSI U484-R74;p.66) Positive isolates will be saved for one week. Please call the Microbiology Laboratory if further susceptibility testing is needed. * ML - Main Lab . END OF REPORT DEPARTMENT OF PATHOLOGY, [address] [place] [address] Berto Paul M.D. Director [facility] # [id number] 12 Normal Range 180 to 914 Indeterminate Range 145 to 180 Deficient Range <145 13 Therapeutic target for the treatment of diabetes mellitus patients is <7% HBA1C, and in selective patients <6.0%. Please refer to [employer] diabetic care guidelines for further information. 14 Critical Result LACT:2.2 Called to [id number] at: 12:19:09 by:[email or web address] Read back by:[facility] Severe Sepsis and Septic Shock Management Bundle Measure requires all lactic acids initially measuring >2.0 mmol/L be repeated. 15 Desirable: <150 Borderline High: 150-199 High: 200-499 Very High: >500 16 Desirable: <200 Borderline High: 200-239 High: >239 17 Low: <40 Desirable: 40-60 High: >60 18 Desirable: <100 Near Optimal: 100-129 Borderline High: 130-159 High: 160-189 Very High: >189 19 Because ethnic data is not always readily [...] 15-29 5 Kidney failure <15 (or dialysis) 20 Troponin-I testing on Plasma Separator Tubes (PST) has a known false positive rate of 0.20-0.40%. All positive troponins reflex immediately to secondary confirmatory testing. Using the [employer] DxI 800 Access Immunoassay systems, the 99th percentile upper reference limit was demonstrated to be < 0.03 ng/mL. 21 Standard intensity warfarin therapeutic range: 2.0-3.0 High intensity warfarin therapeutic range: 2.5-3.5 22 Consistent with Previous Results Reported on 07/12/19 23 Director Systems: [id number] 24 SEE RESULT BELOW Name: PRESTON BENJAMINANANYA M : [address]: Carmencita Petit MD Acct: [id number] Unit: [id number] AGE: 38 Location: LAB Re07/08/19 SEX: F Status: REG REF SPEC: [id number] RAVEN: 07/08/19-[address]: Carmencita Petit MD REQ: [id number] RECD: 07/08/19 STATUS: COMP _ SOURCE: URINE SPDESC: ORDERED: Urine Culture Urine Source: Clean Catch Procedure Result Reported Site Urine Culture Final 07/09/19- 1215 ML No Growth (<1,000 CFU/mL) * ML - Main Lab . END OF REPORT DEPARTMENT OF PATHOLOGY, [address] [place] [address] Berto Paul M.D. Director [facility] # [id number] 25 Standard intensity warfarin therapeutic range: 2.0-3.0 High intensity warfarin therapeutic range: 2.5-3.5 26 SEE RESULT BELOW Name: ANANYA FELICIANO : [address]: Anamika Elena MD Acct: [id number] Unit: [id number] AGE: 38 Location: [facility] Re06/29/19 SEX: F Status: REG REF SPEC: [id number] RAVEN: 06/29/[address]: Anamika Elena MD REQ: [id number] RECD: 06/29/19 STATUS: COMP _ SOURCE: URINE SPDC: ORDERED: Urine Culture Procedure Result Reported Site Urine Culture Final 06/30/19- 1329 ML Organism 1 STREP GROUP B [place] Count 75-100,000 (Many) CFU/ML Susceptibility testing of penicillins and other B-lactams approved by FDA for treatment of Streptococcus pyogenes (Group A Strep) and Streptococcus agalactiae (Group B Strep) is not necessary for clinical purposes and need not be done routinely, since as with vancomycin, resistant strains have not been recognized. (CLSI R367-X00;p.66) Positive isolates will be saved for one week. Please call the Microbiology Laboratory if further susceptibility testing is needed. * ML - Main Lab . END OF REPORT DEPARTMENT OF PATHOLOGY, [address] [place] [address] Berto Paul M.D. Director [facility] # [id number] 27 Standard intensity warfarin therapeutic range: 2.0-3.0 High intensity warfarin therapeutic range: 2.5-3.5 28 <5.0 Negative 5.0 - 25.0 Indeterminate (Repeat testing recommended after 72 hours) >25.0 Positive Perimenopausal women can display HCG levels of up to 20 mIU/mL 29 *Ascorbic acid is present which may interfere with detection of blood. 30 Because ethnic data is not always [...] 5 Kidney failure <15 (or dialysis) 31 Consistent with Previous Results Reported on 05/11/19 32 Because ethnic data is not always [...] 5 Kidney failure <15 (or dialysis) 33 Therapeutic target for the treatment of diabetes mellitus patients is <7% HBA1C, and in selective patients <6.0%. Please refer to [employer] diabetic care guidelines for further information. 34 Because ethnic data is not always [...] 5 Kidney failure <15 (or dialysis) 35 Consistent with Previous Results Reported on 04/14/19 36 Normal Range 180 to 914 Indeterminate Range 145 to 180 Deficient Range <145 37 Consistent with Previous Results Reported on 04/10/19 38 Because ethnic data is not always [...] 5 Kidney failure <15 (or dialysis) 39 Consistent with Previous Results Reported on 02/10/19. 40 Because ethnic data is not always readily [...] (or dialysis) Procedures Date Code Description Status 08/29/2019 12258 EKG Tracing & Interpretation Completed 08/10/2019 29782 ECHO Transthorasic Realtime 2D W Doppler & Color Flow Completed Hosp 07/11/2019 55947 Insertion Interbody Biomechanical Device; Each Completed Interspace 07/11/2019 85117 Insertion Interbody Biomechanical Device; Each Completed Interspace 07/11/2019 32961 Anterior Instrumentation 2-3 Vertebral Segments Completed 07/11/2019 25828 Anterior Instrumentation 2-3 Vertebral Segments Completed 07/11/2019 74530 arthrodesis,anterior interbody incl disc space Completed prep,discectomy,de 07/11/2019 30202 arthrodesis,anterior interbody incl disc space Completed prep,discectomy,de 07/11/2019 79164 Autograft For Spine Surgery ([employer]cls Harvesting The Completed Graft) 07/11/201956844 Allograft For Spine Surgery, Morselized Completed 06/30/2019 89456 EKG, Interpretation Only Completed 06/27/2019 12085 EKG Tracing & Interpretation Completed 06/06/2019 820509313 Diabetic Retinal Eye Exam Completed 10/13/2016 44155509 Colonoscopy Completed Medical Devices Description No Information Available Encounters Type Date Location Provider Dx Diagnosis Office Visit 08/18/2019 Pul[facility]ology [facility] Ivon J45.909 Unspecified asthma, 9:00a [facility] uncomplicated [facility] G47.33 Obstructive sleep apnea (adult) (pediatric) Z86.73 Prsnl hx of TIA (TIA), and cereb infrc w/o resid deficits E66.9 Obesity, unspecified Z68.41 Body mass index (BMI) 40.0-44.9, adult Office Visit 08/09/2019 10:27a [facility] Leeann Kalin, R20.0 Anesthesia of michoacano Ayers MD skin Hospitalists R53.1 Weakness E11.9 Type 2 diabetes mellitus without complications F32.9 Major depressive disorder, single episode, unspecified F41.9 Anxiety disorder, unspecified M54.2 Cervicalgia Office Visit 07/18/2019 2:20p [facility] Internal Carmencita R39.89 Other symptoms and Medicine - Katie Petit signs involving the [facility] genitourinary system L30.9 Dermatitis, unspecified Office Visit 07/13/2019 [facility] Rafaela E11.9 Type 2 diabetes 11:57a michoacano Ayers PA-C mellitus without Hospitalists complications F32.9 Major depressive disorder, single episode, unspecified Z98.1 Arthrodesis status Office Visit 07/12/2019 [facility] Sepideh F32.9 Major depressive 11:57a michoacano Ayers NP disorder, single Hospitalists episode, unspecified E11.9 Type 2 diabetes mellitus without complications Z98.1 Arthrodesis status [facility] Major depressive 11:57a michoacano Ayers NP disorder, single Hospitalists episode, unspecified R73.01 Impaired fasting glucose J45.909 Unspecified asthma, uncomplicated Z98.1 Arthrodesis status Office Visit 06/27/2019 8:30a [facility] Internal Cesia Z01.818 Encounter for other Medicine - MD Antonio preprocedural [facility] examination E66.8 Other obesity R06.02 Shortness of breath M48.02 Spinal stenosis, cervical region Office Visit 06/09/2019 Neurosurgery Vassilios G99.2 Myelopathy in 9:30a Services [facility] MD Kassy diseases classified elsewhere M50.022 Cervical disc disorder at C5-C6 level with myelopathy Office Visit 05/10/2019 4:00p Rheumatology Rodriguez Schaffer G99.2 Myelopathy in Services Of St[facility] Wilson diseases classified elsewhere M06.4 Inflammatory polyarthropathy R70.0 Elevated erythrocyte sedimentation rate Z79.1 long-term (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 polyarthropathy R79.82 Elevated C-reactive protein (CRP) R70.0 Elevated erythrocyte sedimentation rate Z79.899 Other remote computer terminal operator (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 polyarthropathy R79.82 Elevated C-reactive protein (CRP) R70.0 Elevated erythrocyte sedimentation rate Z79.899 Other halfway (current) drug therapy Assessments Date Code Description Provider 08/29/2019 G45.9 Transient cerebral ischemic attack, Tom Goldstein, DO FAC unspecified 08/29/2019 R00.2 Palpitations Tom Goldstein DO FACC 08/29/2019 F17.201 Nicotine dependence, unspecified, in Tom Goldstein DO FAC remission 08/29/2019 G47.33 Obstructive sleep apnea (adult) Tom Goldstein DO FACC (pediatric) 08/18/2019 M50.122 Cervical disc disorder at C5-C6 Anamika Elena MD level with radiculopathy 08/18/2019 M50.022 Cervical disc disorder at C5-C6 Anamika Elena MD level with myelopathy 08/18/2019 J45.909 Unspecified asthma, uncomplicated Ivon Lopez NP 08/18/2019 Z48.89 Encounter for other specified Anamika Elena MD surgical aftercare 08/18/2019 G47.33 Obstructive sleep apnea (adult) Ivon Lopez NP (pediatric) 08/18/2019 Z86.73 Personal history of transient Ivon Lopez NP ischemic attack (TIA), and cerebral infarction without residual deficits 08/18/2019 E66.9 Obesity, unspecified Ivon Lopez PIT CLERK 08/18/2019 Z68.41 Body mass index (BMI) 40.0-44.9, Ivonmaryjo Lopez PIT CLERK adult 08/16/2019 Z86.73 Personal history of transient Carmencita Petit M.D. ischemic attack (TIA), and cerebral infarction without residual deficits 08/16/2019 G47.30 Sleep apnea, unspecified Carmencita Petit M.D. 08/10/2019 I63.9 Cerebral infarction, unspecified Howie Foster M.D., [facility], [facility] 08/09/2019 R20.0 Anesthesia of skin Leeann Gagnon MD 08/09/2019 R53.1 Weakness Leeann Gagnon MD 08/09/2019 E11.9 Type 2 diabetes mellitus without Leeann Gagnon MD complications 08/09/2019 F32.9 Major depressive disorder, single Leeann Gagnon MD episode, unspecified 08/09/2019 F41.9 Anxiety disorder, unspecified Leeann Gagnon MD 08/09/2019 M54.2 Cervicalgia Leeann aGgnon MD 07/19/2019 Z48.89 Encounter for other specified PORTILLO Rivas surgical aftercare 07/18/2019 R39.89 Other symptoms and signs involving Carmencita Petit M.D. the genitourinary system 07/18/2019 L30.9 Dermatitis, unspecified Carmencita Petit M.D. 07/13/2019 E11.9 Type 2 diabetes mellitus without Rafaela Angulo PA-C complications 07/13/2019 F32.9 Major depressive disorder, single Rafaela Angulo PA-C episode, unspecified 07/13/2019 Z98.1 Arthrodesis status Rafaela Angulo PA-C 07/12/2019 F32.9 Major depressive disorder, single Sepideh Thrasher NP episode, unspecified 07/12/2019 E11.9 Type 2 diabetes mellitus without Sepideh Thrasher NP complications 07/12/2019 Z98.1 Arthrodesis status Sepideh Thrasher, PIT CLERK 07/11/2019 M50.022 Cervical disc disorder at C5-C6 PORTILLO Rivas level with myelopathy 07/11/2019 M50.022 Cervical disc disorder at C5-C6 Anamika Elena MD level with myelopathy 07/11/2019 M50.122 Cervical disc disorder at C5-C6 PORTILLO Rivas level with radiculopathy 07/11/2019 F32.9 Major depressive disorder, single Sepideh Thrasher, PIT CLERK episode, unspecified 07/11/2019 M50.122 Cervical disc disorder at C5-C6 Anamika Elena MD level with radiculopathy 07/11/2019 R73.01 Impaired fasting glucose Sepideh Thrasher, PIT CLERK 07/11/2019 J45.909 Unspecified asthma, uncomplicated Sepideh Thrasher, PIT CLERK 07/11/2019 Z98.1 Arthrodesis status Sepideh Thrasher, PIT CLERK 06/30/2019 M50.022 Cervical disc disorder at C5-C6 Raúl Cornell M.D. level with myelopathy 06/27/2019 Z01.818 Encounter for other preprocedural Cesia Alvarez MD examination 06/27/2019 E66.8 Other obesity Cesia Alvarez MD 06/27/2019 R06.02 Shortness of breath Cesia Alvarez MD 06/27/2019 M48.02 Spinal stenosis, cervical region Cesia Alvarez MD 06/14/2019 G99.2 Myelopathy in diseases classified Anamika Elena MD elsewhere 06/14/2019 M50.022 Cervical disc disorder at C5-C6 Anamika Elena MD level with myelopathy 06/09/2019 G99.2 Spinal stenosis in cervical region Anamika Elena MD 06/09/2019 M50.022 Cervical disc disorder at C5-C6 Anamika Elena MD level with myelopathy 05/10/2019 G99.2 Spinal stenosis in cervical region Rodriguez Schaffer M.D. 05/10/2019 M06.4 Inflammatory polyarthropathy Rodriguez Schaffer M.D. 05/10/2019 R70.0 Elevated erythrocyte sedimentation Rodriguez Schaffer M.D. rate 05/10/2019 Z79.1 manager intermediate (current) use of Rodriguez Schaffer M.D. non-steroidal anti-inflammatories (Nsaid) 05/10/2019 N39.41 Urge incontinence Rodriguez Schaffer M.D. 04/28/2019 M50.022 Cervical disc disorder at C5-C6 PORTILLO Rivas level with myelopathy 04/18/2019 M06.4 Inflammatory polyarthropathy Rodriguez Schaffer M.D. 04/18/2019 R79.82 Elevated C-reactive protein (CRP) Rodriguez Schaffer M.D. 04/18/2019 R70.0 Elevated erythrocyte sedimentation Rodriguez Schaffer M.D. rate 04/18/2019 Z79.899 Other halfway (current) drug Rodriguez Schaffer M.D. therapy 04/18/2019 M62.81 Muscle weakness (generalized) Rodriguez Schaffer M.D. 03/30/2019 M06.4 Inflammatory polyarthropathy Rodriguez Schaffer M.D. 03/30/2019 R79.82 Elevated C-reactive protein (CRP) Rodriguez Schaffer M.D. 03/30/2019 R70.0 Elevated erythrocyte sedimentation Rodriguez Schaffer M.D. rate 03/30/2019 Z79.899 Other remote computer terminal operator (current) drug Rodriguez Schaffer M.D. therapy Plan of Treatment Future Appointment(s):09/20/2019 11:50 am - Carmencita Petit M.D. at [facility] Internal [facility]11/01/2019 11:30 am - Anamika Elena MD at [facility]surgery [facility]10/04/2019 9:30 am - Ivon Lopez NP at [facility]ology [facility]09/18/2019 11:50 am - Carmencita Petit M.D. at [facility] Internal [facility]10/09/2019 1:30 pm - PORTILLO Rivas at Neurosurgery [facility]10/17/2019 10:00 am - Royal Arizmendi M.D. at [place] [facility]08/29/2019 - [facility] Goldstein [facility] Transient cerebral ischemic attack, unspecifiedNew Orders:Echocardiogram, Transesophageal, Ordered: 08/29/19Comments:You will need the ok to have a KARL at your follow up appointment with Dr. Elena because of the neck collar. Once you get the ok at the follow up appointment in October, please give us a call to schedule.Follow up:Please arrange delmismildred boris Wait to schedule KARL until after patient calls F/u [id number] PalpitationsNew Orders:[facility], Ordered: 08/29/19F17.201 Nicotine dependence, unspecified, in bisyiealmC23.33 Obstructive sleep apnea (adult) (pediatric) Functional Status Description No Information Available Mental Status Description No Information Available Referrals Refer to Dr Reason for Referral Status Appt Date Lior Llanes MD Created [address] [place] [address] [phone] Ann Wilson MD Sent 08/29/2019 [address] [place] [address] [phone] Doug Thorne MD Please evaluate and treat cervical radiculopathy Sent [address] [place] [address] [phone] Christiano Puga MD Please evaluate and treat iron Received Partial deficiency anemia and determine cause of rising white count to see if there is a hematologic cause of anemia and leukocytosis and elevated inflammatory markers SECOND REQUEST [address] [place] [address] [phone] Anamika Elena MD please evaluate and treat patient with Scheduled 05/03/2019 asymmetric upper extremity weakness now extruded paracentral disc associated severe cervical neural foraminal stenosis [address] [facility], [facility] [place] [address] [phone] Royal Arizmendi MD Please evaluate patient with new onset left upper Sent extremity weakness, history of an inflammatory arthropathy [address] [place] [address] [place] [address] [phone]
--- OUTSIDE RECORDS SUMMARY | 2019-09-21 14:28 | XMS REPORT | Continuity of Care Document ---
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 Glucophage Take 1 tab by 90tabs Cesia Alvarez, 04/10/2019 500mg mouth once daily MD Harris Meloxicam take one tab 30tabs M06.4 Rodriguez [...] nightly to 2units G56.03 Rodriguez Schaffer, 11/25/2017 [facility] [place] help with M.D. discomfort in the right and left hand Vitamin B12 1 by mouth every Unknown [...] M.D. 07/10/2019 Gabapentin Take 1 Capsule By 30capkarl Schaffer, 05/26/2019 - 300mg Capsules Mouth AT [...] Schaffer, 04/13/2019 - 300mg Capsules capsule/tablet by M.DZachary 04/18/2019 mouth at night for 1 week [...] CPT Code Status Date Vaccine Lot # [id number] Refused 10/06/2017 Influenza Virus Vaccine, Quadrivalent, Split, Preservative Free Vital Signs Date Vital Result Comment 08/18/2019 8:40am Height 64 inches 5'4" Weight 247.00 lb Heart Rate 70 /min BP Systolic 120 mmHg BP Diastolic 72 mmHg O2 % BldC Oximetry 96 % BMI (Body Mass Index) 42.4 kg/m2 08/16/2019 11:46am Height 64 inches 5'4" Weight 274.00 lb Heart Rate 101 /min BP Systolic Sitting 133 mmHg BP Diastolic Sitting 87 mmHg Pain Level 0 O2 % BldC Oximetry 97 % BMI (Body Mass Index) 47.0 kg/m2 Results Test Acquired Facility Test Result H/L Range Note Date Laboratory test 08/09/2019 [facility] Methylmalonic 0.11 <= 0.40 [address] Acid Mma nmol/mL [place], [place] [id number] [phone] Urine Culture And 08/09/2019 [facility] Urine Culture SEE [address] [place] [address] BELOW [phone] Laboratory test 08/09/2019 [facility] Vitamin B12 240 pg/mL Normal 180-914 [address] [place], [place] [address] [phone] Hemoglobin A1c (Glyco HGB) 6.5 % High 4.0-5.6 4 Urinalysis Profile 08/09/2019 [facility] Urine Color Yellow [address] [place] [address] [phone] Urine Appearance Clear Urine Specific Marianna > 1.060 High 1.010-1.030 Urine pH 5.0 [...] Epithelial Cell Present Abnormal Absent Laboratory 08/09/2019 [facility] Lactic Acid 2.2 Critical 0.5- 2.0 5 test finding [address] mmol/[place] [address] [phone] Lipid Profile 08/09/2019 [facility] Triglycerides 170 mg/dL 6 (Trig/Chol/HD [address] L) [place] [address] [phone] Cholesterol 189 mg/dL 7 HDL Cholesterol 35.8 mg/dL 8 LDL Cholesterol 119 mg/dL 9 Comp Metabolic 08/09/2019 [facility] Sodium 138 mmol/L Normal 135-[address] [place] [address] [phone] Potassium 4.1 mmol/L Normal 3.5-5.0 Chloride 104 [...] Egfr Non- 131.3 >60 Egfr 158.8 >60 10 Laboratory test 08/09/2019 [facility] Partial 35.0 Normal 26.0 -38.[address] [place] [address] Time PTT [phone] Troponin-I (TnI) 0.00 ng/mL <0.03 11 Inr/Protime 08/09/2019 [facility] Inr 0.92 Normal 0.82-1.[address] [place], [place] [address] [phone] CBC Auto Diff 08/09/2019 [facility] White Blood 7.7 Normal 3.5 -10.[address] Count 10^3/[place] [address] [phone] Red Blood Count 4.45 10^6/uL Normal 3.70-4.87 Hemoglobin 10.5 g/dL Low 12.0-16.0 Hematocrit 32 % Low 35-47 Mean Corpuscular Volume 72 fL Low 80-97 13 Mean Corpuscular Hemoglobin 24 pg Low 27-31 [...] Blood Cells % 0.1 Laboratory test 07/11/2019 [facility] Point of 122 mg/dL High 70-100 [address] [place] [address] [phone] Urinalysis 07/08/2019 [facility] Urine Color Colorless Profile [address] [place] [address] [phone] Urine Appearance Clear Urine Specific Marianna 1.002 Low 1.010-1.030 Urine pH 6.0 Normal 5-9 Urine Urobilinogen Negative Negative Urine Ketones Negative Negative Urine Protein Negative Negative Urine Leukocytes Negative Negative Urine Blood Negative Negative Urine Nitrite Negative Negative Urine Bilirubin Negative Negative Urine Glucose Negative Negative Urine Culture And 07/08/2019 [facility] Urine SEE RESULT [address] [place] [address] [phone] Laboratory test 07/05/2019 [facility] Partial 37.6 seconds Normal 26.[address] Thrombo -[address]. [place] [address] Time PTT 0 [phone] Inr/Protime 07/05/2019 [facility] Inr 0.99 Normal 0.[address] -1.0 [place] [address] 9 [phone] Urine Culture And 06/29/2019 [facility] Urine SEE RESULT [address] [place] [address] [phone] Type & Screen 06/29/2019 [facility] Patient A Positive [address] [place] [address] [phone] Antibody Screen NEGATIVE Laboratory 06/29/2019 [facility] Partial 43.4 High 26.0-38.0 test finding [address] [address] Time PTT [phone] Inr/Protime 06/29/2019 [facility] Inr 1.03 Normal 0.82-1.[address] [place] [address] [phone] CBC No Diff 06/29/2019 [facility] White Blood 10.5 Normal 3.5- 10.[address] Count 10^3/[place] [address] [phone] Red Blood Count 4.93 10^6/uL High 3.70-4.87 Hemoglobin 11.5 g/dL Low 12.0-16.0 Hematocrit 36 % Normal 35-47 Mean Corpuscular Volume 72 fL Low 80-97 Mean Corpuscular Hemoglobin 23 pg Low 27-31 Mean Corpuscular HGB Conc 32 g/dL Normal 31-36 Red Cell Distribution Width 17 % High 10-15 Platelet Count 228 10^3/uL Normal 150-450 Mean Platelet Volume 8.6 fL Normal 7.4-10.4 Laboratory test 06/29/2019 [facility] HCG < 0.60 [address] mIU/[place] [address] [phone] Basic Metabolic 06/29/2019 [facility] Sodium 137 mmol/L Normal 135-[address] [place] [address] [phone] Potassium 4.2 mmol/L Normal 3.5-5.0 Chloride 101 mmol/L Normal 101-111 Co2 Carbon Dioxide 29 mmol/L Normal 22-32 Anion Gap 7 mmol/L Normal 2-11 Glucose 76 mg/dL Normal 70-100 Blood Urea Nitrogen 8 mg/dL Normal 6-24 Creatinine 0.58 mg/dL Normal 0.51-0.95 BUN/Creatinine Ratio 13.8 Normal 8-20 Calcium 9.5 mg/dL Normal 8.6-10.3 Egfr Non- 115.7 >60 Egfr 140.0 >60 20 Urinalysis Profile 06/29/2019 [facility] Urine Color Yellow [address] [place] [address] [phone] Urine Appearance Cloudy Urine Specific Marianna 1.019 Normal 1.010-1.030 Urine pH 5.0 Normal 5-9 Urine Urobilinogen Negative Negative Urine Ketones Negative Negative Urine Protein Negative Negative Urine Leukocytes 1+ Abnormal Negative Urine Blood Negative Negative * * Abnormal Negative 21 Urine Nitrite Negative Negative Urine Bilirubin Negative Negative Urine Glucose Negative Negative Urine White Blood Cell Trace(0-5/hpf) Absent Urine Red Blood Cell 2+(6-10/hpf) Abnormal Absent Urine Bacteria Absent Absent Urine Squamous Epithelial Cell Present Abnormal Absent CBC Auto 06/27/2019 [facility] White Blood 10.6 10^3/uL Normal 3.5-10.[address] [place] [address] [phone] Red Blood Count 4.89 10^6/uL High 3.70-4.87 Hemoglobin 11.6 g/dL Low 12.0-16.0 Hematocrit 36 % Normal 35-47 Mean Corpuscular Volume 73 fL Low 80-97 22 Mean Corpuscular Hemoglobin [...] Blood Cells % 0.1 Comp Metabolic 06/27/2019 [facility] Sodium 137 mmol/L Normal 135-[address] [place] [address] [phone] Potassium 4.6 mmol/L Normal 3.5-5.0 Chloride 102 [...] Egfr Non- 115.7 >60 Egfr 140.0 >60 23 Laboratory test 06/27/2019 [facility] Hemoglobin A1c 6.4 % High 4.0-5.6 [address] (Glyco HGB) [place] [address] [phone] Laboratory test 05/11/2019 [facility] C Reactive 16.04 High < 8.[address] Protein mg/[place] [address] [phone] Urinalysis 05/11/2019 [facility] Urine Color Genna Profile [address] [place] [address] [phone] Urine Appearance Turbid Urine Specific Marianna 1.015 Normal 1.010-1.030 Urine pH 5.0 Normal 5-9 Urine Urobilinogen Negative Negative Urine Ketones Negative Negative Urine Protein Negative Negative Urine Leukocytes Negative Negative Urine Blood Negative Negative Urine Nitrite Negative Negative Urine Bilirubin Negative Negative Urine Glucose Negative Negative Laboratory test 05/11/2019 [facility] Erythrocyte Sed 35 mm/Hr High 0-[address] [place] [address] [phone] Comp Metabolic 05/11/2019 [facility] Sodium 137 Normal 135- [address] mmol/[place] [address] [phone] Potassium 4.4 mmol/L Normal 3.5-5.0 Chloride 105 [...] Egfr Non- 118.1 >60 Egfr 142.9 >60 25 CBC Auto 05/11/2019 [facility] White Blood 8.6 10^3/uL Normal 3.5-10.[address] [place] [address] [phone] Red Blood Count 4.96 10^6/uL High 3.70-4.87 Hemoglobin 11.5 g/dL Low 12.0-16.0 Hematocrit 36 % Normal 35-47 Mean Corpuscular Volume 73 fL Low 80-97 26 Mean Corpuscular Hemoglobin 23 pg Low 27-31 [...] % Nucleated Red Blood Cells % 0.0 Iron & Iron Binding 04/26/2019 [facility] Iron 33 g/dL Low 50-[address] [place] [address] [phone] Unsaturated Iron Binding < 451 g/dL Total Iron Binding Capacity 466 g/dL High 250-450 Transferrin 333 mg/dL Normal 203-362 % Iron Saturation 7 % Low 15-55 Vitamin B12 04/26/2019 [facility] Vitamin B12 334 pg/mL Normal 180-914 27 [address] Folate [address] [place] [address] [phone] Folic Acid (Folate) 18.08 ng/mL >3.99 Laboratory test 04/26/2019 [facility] Ferritin 21.0 Normal 11- [address] ng/[place] [address] [phone] Laboratory test 04/14/2019 [facility] Erythrocyte Sed 31 mm/Hr High 0-[address] [place] [address] [phone] C Reactive Protein 11.99 mg/L High <8.01 CBC Auto 04/14/2019 [facility] White Blood 13.7 10^3/uL High 3.5-10.[address] [place] [address] [phone] Red Blood Count 4.59 10^6/uL Normal 3.70-4.87 Hemoglobin 10.7 g/dL Low 12.0-16.0 Hematocrit 33 % Low 35-47 Mean Corpuscular Volume 72 fL Low 80-97 28 Mean Corpuscular Hemoglobin 23 pg Low 27-31 [...] Blood Cells % 0.1 Comp Metabolic 04/14/2019 [facility] Sodium 139 mmol/L Normal 135-[address] [place] [address] [phone] Potassium 4.2 mmol/L Normal 3.5-5.0 Chloride 104 [...] Egfr Non- 88.8 >60 Egfr 107.4 >60 29 CBC Auto 04/10/2019 [facility] White Blood 11.2 10^3/uL High 3.5-10.[address] [place] [address] [phone] Red Blood Count 5.05 10^6/uL High 3.70-4.87 Hemoglobin 11.5 g/dL Low 12.0-16.0 Hematocrit 36 % Normal 35-47 Mean Corpuscular Volume 72 fL Low 80-97 30 Mean Corpuscular Hemoglobin 23 pg Low 27-31 [...] Blood Cells % 0.0 Comp Metabolic 04/10/2019 [facility] Sodium 135 mmol/L Normal 135-[address] [place] [address] [phone] Potassium 4.4 mmol/L Normal 3.5-5.0 Chloride 101 [...] Egfr Non- 103.3 >60 Egfr 125.0 >60 31 Laboratory test 04/10/2019 [facility] C Reactive 8.82 mg/L High <8.[address] [place] [address] [phone] ADDITIONAL INFORMATION This test was developed and its performance characteristics determined by [facility] in a manner consistent with CLIA requirements. This test has not been cleared or approved by the U.S. Food and Drug Administration. Test Performed by: [facility] [place] [address] Cardiac Cath Lab Radiology Technologist: Jus Polo M.D. Ph.D.; CLIA# [id number] 2 SEE RESULT BELOW Name: ANANYA FELICIANO : [address]: Keli Mendoza DO Acct: [id number] Unit: [id number] AGE: 38 Location: [place] [address] Re08/09/19 Dis: 08/10/19 SEX: F Status: DIS Bren SPEC: [id number] RAVEN: 08/09/19-1309 [facility] DR: Mac Galindo MD REQ: [id number] RECD: 08/09/19 STATUS: COMP [facility] DR: Carmencita Petit MD _ SOURCE: URINE SPDESC: ORDERED: Urine Culture Procedure Result Reported Site Urine Culture Final 08/11/19- 1122 ML Organism 1 STREP GROUP B [place] Count 10-25,000 (Moderate) CFU/ML Organism 2 NORMAL GABBY [place] Count 10-25,000 (Moderate) CFU/ML Susceptibility testing of penicillins and other B-lactams approved by FDA for treatment of Streptococcus pyogenes (Group A Strep) and Streptococcus agalactiae (Group B Strep) is not necessary for clinical purposes and need not be done routinely, since as with vancomycin, resistant strains have not been recognized. (CLSI B784-C09;p.66) Positive isolates will be saved for one week. Please call the Microbiology Laboratory if further susceptibility testing is needed. * ML - Main Lab . END OF REPORT DEPARTMENT OF PATHOLOGY, [address] [place] [address] Berto Paul M.D. Director [facility] # [id number] 3 Normal Range 180 to 914 Indeterminate Range 145 to 180 Deficient Range <145 4 Therapeutic target for the treatment of diabetes mellitus patients is <7% HBA1C, and in selective patients <6.0%. Please refer to [place] [employer] diabetic care guidelines for further information. 5 Critical Result LACT:2.2 Called to ALEXANDER at: 12:19:09 by:[id number] Read back by:ALEXANDER NYKarl Severe Sepsis and Septic Shock Management Bundle Measure requires all lactic acids initially measuring >2.0 mmol/L be repeated. 6 Desirable: <150 Borderline High: 150-199 High: 200-499 Very High: >500 7 Desirable: <200 Borderline High: 200-239 High: >239 8 Low: <40 Desirable: 40-60 High: >60 9 Desirable: <100 Near Optimal: 100-129 Borderline High: 130-159 High: 160-189 Very High: >189 10 Because ethnic data is not always [...] 5 Kidney failure <15 (or dialysis) 11 Troponin-I testing on Plasma Separator Tubes (PST) has a known false positive rate of 0.20-0.40%. All positive troponins reflex immediately to secondary confirmatory testing. Using the UberseqI 800 Access Immunoassay systems, the 99th percentile upper reference limit was demonstrated to be < 0.03 ng/mL. 12 Standard intensity warfarin therapeutic range: 2.0-3.0 High intensity warfarin therapeutic range: 2.5-3.5 13 Consistent with Previous Results Reported on 07/12/19 14 Wire Temperer: [id number] 15 SEE RESULT BELOW Name: ANANYA FELICIANO : [address]: Carmencita Petit MD Acct: [id number] Unit: [id number] AGE: 38 Location: LAB Re07/08/19 SEX: F Status: REG REF SPEC: [id number] RAVEN: 07/08/[address]: Carmencita Petit MD REQ: [id number] RECD: 07/08/19 STATUS: COMP _ SOURCE: URINE SPDESC: ORDERED: Urine Culture Urine Source: Clean Catch Procedure Result Reported Site Urine Culture Final 07/09/19- 1215 ML No Growth (<1,000 CFU/mL) * ML - Main Lab . END OF REPORT DEPARTMENT OF PATHOLOGY, [address] [place] [address] Berto Paul M.D. Director [facility] # [id number] 16 Standard intensity warfarin therapeutic range: 2.0-3.0 High intensity warfarin therapeutic range: 2.5-3.5 17 SEE RESULT BELOW Name: ANANYA FELICIANO : [address]: Anamika Elena MD Acct: [id number] Unit: [id number] AGE: 38 Location: [facility] Re06/29/19 SEX: F Status: REG REF SPEC: [id number] RAVEN: 06/29/[address] [facility] [address]: Anamika Elena MD REQ: [id number] RECD: 06/29/19 STATUS: COMP _ SOURCE: URINE SPDESC: ORDERED: Urine Culture Procedure Result Reported Site Urine Culture Final 06/30/19- 1329 ML Organism 1 STREP GROUP B [place] Count 75-100,000 (Many) CFU/ML Susceptibility testing of penicillins and other B-lactams approved by FDA for treatment of Streptococcus pyogenes (Group A Strep) and Streptococcus agalactiae (Group B Strep) is not necessary for clinical purposes and need not be done routinely, since as with vancomycin, resistant strains have not been recognized. (CLSI H032-P07;p.66) Positive isolates will be saved for one week. Please call the Microbiology Laboratory if further susceptibility testing is needed. * ML - Main Lab . END OF REPORT DEPARTMENT OF PATHOLOGY, [address] [place] [address] Berto Paul M.D. Director [facility] # [id number] 18 Standard intensity warfarin therapeutic range: 2.0-3.0 High intensity warfarin therapeutic range: 2.5-3.5 19 <5.0 Negative 5.0 - 25.0 Indeterminate (Repeat testing recommended after 72 hours) >25.0 Positive Perimenopausal women can display HCG levels of up to 20 mIU/mL 20 Because ethnic data is not always [...] 5 Kidney failure <15 (or dialysis) 21 *Ascorbic acid is present which may interfere with detection of blood. 22 Consistent with Previous Results Reported on 05/11/19 23 Because ethnic data is not always [...] 5 Kidney failure <15 (or dialysis) 24 Therapeutic target for the treatment of diabetes mellitus patients is <7% HBA1C, and in selective patients <6.0%. Please refer to [place] [employer] diabetic care guidelines for further information. 25 Because ethnic data is not always readily [...] 15-29 5 Kidney failure <15 (or dialysis) 26 Consistent with Previous Results Reported on 04/14/19 27 Normal Range 180 to 914 Indeterminate Range 145 to 180 Deficient Range <145 28 Consistent with Previous Results Reported on 04/10/19 29 Because ethnic data is not always readily [...] 15-29 5 Kidney failure <15 (or dialysis) 30 Consistent with Previous Results Reported on 02/10/19. 31 Because ethnic data is not always readily [...] (or dialysis) Procedures Date Code Description Status 08/10/2019 37998 ECHO Transthorasic Realtime 2D W Doppler & Color Flow Completed Hosp 07/11/2019 40940 Insertion Interbody Biomechanical Device; Each Completed Interspace 07/11/2019 98453 Insertion Interbody Biomechanical Device; Each Completed Interspace 07/11/2019 05387 Anterior Instrumentation 2-3 Vertebral Segments Completed 07/11/2019 86780 Anterior Instrumentation 2-3 Vertebral Segments Completed 07/11/2019 80067 arthrodesis,anterior interbody incl disc space Completed prep,discectomy,de 07/11/2019 01044 arthrodesis,anterior interbody incl disc space Completed prep,discectomy,de 07/11/2019 79371 Autograft For Spine Surgery (Incls Harvesting The Completed Graft) 07/11/201930780 Allograft For Spine Surgery, Morselized Completed 06/27/2019 55360 EKG Tracing & Interpretation Completed 06/06/2019 306290007 Diabetic Retinal Eye Exam Completed 10/13/2016 16448778 Colonoscopy Completed Medical Devices Description No Information Available Encounters Type Date Location Provider Dx Diagnosis Office Visit 07/18/2019 [facility] Internal Carmencita Marisabel, R39.89 Other symptoms and 2:20p Medicine - Ccmob MMichaela signs involving the genitourinary system L30.9 Dermatitis, unspecified Office Visit 07/13/2019 [facility] Rafaela E11.9 Type 2 diabetes 11:57a michoacano Ayers PA-C mellitus without Hospitalists complications F32.9 Major depressive disorder, single episode, unspecified Z98.1 Arthrodesis status [facility] F32.9 Major depressive 11:57a michoacano Ayers, FRONT DESK OFFICER disorder, single Hospitalists episode, unspecified E11.9 Type 2 diabetes mellitus without complications Z98.1 Arthrodesis status Office Visit 07/11/2019 [facility] F32.9 Major depressive 11:57a michoacano Ayers, FRONT DESK OFFICER disorder, single Hospitalists episode, unspecified R73.01 Impaired fasting glucose J45.909 Unspecified asthma, uncomplicated Z98.1 Arthrodesis status Office Visit 06/27/2019 8:30a [facility] Internal Cesia Z01.818 Encounter for other Medicine - MD Antonio preprocedural Ccmob examination E66.8 Other obesity R06.02 Shortness of breath M48.02 Spinal stenosis, cervical region Office Visit 06/09/2019 Neurosurgery Vassilios G99.2 Myelopathy in 9:30a [facility] Elena MD diseases classified elsewhere M50.022 Cervical disc disorder at C5-C6 level with myelopathy Office Visit 05/10/2019 4:00p Rheumatology Rodriguez Schaffer G99.2 Myelopathy in [facility] Wilson diseases classified elsewhere M06.4 Inflammatory polyarthropathy R70.0 Elevated erythrocyte sedimentation rate Z79.1 intermediate teacher (current) use of non-steroidal non-inflam (Nsaid) N39.41 Urge incontinence Office Visit 04/28/2019 Neurosurgery Sharmez M50.022 Cervical disc 11:00a Services Of PORT[facility]O Clark disorder at C5-C6 level with myelopathy Office Visit 04/18/2019 Rheumatology Rodriguez M06.4 Inflammatory 3:00p [facility] Schaffer M.D. polyarthropathy R79.82 Elevated C-reactive protein (CRP) R70.0 Elevated erythrocyte sedimentation rate Z79.899 Other termination clerk (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 ischemic attack (TIA), and cerebral infarction without residual deficits 08/16/2019 G47.30 Sleep apnea, unspecified Carmencita Petit M.D. 08/10/2019 I63.9 Cerebral infarction, unspecified Howie Foster M.D., [facility] 07/19/2019 Z48.89 Encounter for other specified PORTILLO Rivas surgical aftercare 07/18/2019 R39.89 Other symptoms and signs involving Carmencita Petit M.D. the genitourinary system 07/18/2019 L30.9 Dermatitis, unspecified Carmencita Petit M.D. 07/13/2019 E11.9 Type 2 diabetes mellitus without RafaelaPORTILLO Andino-C complications 07/13/2019 F32.9 Major depressive disorder, single Rafaelaroshni Angulo PA-C episode, unspecified 07/13/2019 Z98.1 Arthrodesis status CALEB CruzC 07/12/2019 F32.9 Major depressive disorder, single Sepideh Thrasher FRONT DESK OFFICER episode, unspecified 07/12/2019 E11.9 Type 2 diabetes mellitus without Sepidehjonh Thrasher, FRONT DESK OFFICER complications 07/12/2019 Z98.1 Arthrodesis status Sepideh Thrasher NP 07/11/2019 M50.022 Cervical disc disorder at C5-C6 PORTILLO Rivas level with myelopathy 07/11/2019 M50.022 Cervical disc disorder at C5-C6 Anamika Elena MD level with myelopathy 07/11/2019 M50.122 Cervical disc disorder at C5-C6 PORTILLO Rivas level with radiculopathy 07/11/2019 F32.9 Major depressive disorder, single Sepideh Thrasher, FRONT DESK OFFICER episode, unspecified 07/11/2019 M50.122 Cervical disc disorder at C5-C6 Anamika Elena MD level with radiculopathy 07/11/2019 R73.01 Impaired fasting glucose Sepideh Thrasher, FRONT DESK OFFICER 07/11/2019 J45.909 Unspecified asthma, uncomplicated Sepidehjonh Thrasher, FRONT DESK OFFICER 07/11/2019 Z98.1 Arthrodesis status Sepideh Thrasher NP 06/27/2019 Z01.818 Encounter for other preprocedural Cesia [...] sedimentation Rodriguez Schaffer M.D. rate 05/10/2019 Z79.1 intermediate teacher (current) use of Rodriguez Schaffer M.D. non-steroidal anti-inflammatories (Nsaid) 05/10/2019 N39.41 Urge incontinence Rodriguez Schaffer M.D. 04/28/2019 M50.022 Cervical disc disorder at C5-C6 PORTILLO Rivas level with myelopathy 04/18/2019 M06.4 Inflammatory polyarthropathy Rodriguez Schaffer M.D. 04/18/2019 R79.82 Elevated C-reactive protein (CRP) Rodriguez Schaffer M.D. 04/18/2019 R70.0 Elevated erythrocyte sedimentation Rodriguez Schaffer M.D. rate 04/18/2019 Z79.899 Other fci (current) drug Rodriguez Schaffer M.D. therapy 04/18/2019 M62.81 Muscle weakness (generalized) Rodriguez Schaffer M.D. 03/30/2019 M06.4 Inflammatory polyarthropathy Rodriguez Schaffer M.D. 03/30/2019 R79.82 Elevated C-reactive protein (CRP) Rodriguez Schaffer M.D. 03/30/2019 R70.0 Elevated erythrocyte sedimentation Rodriguez Schaffer M.D. rate 03/30/2019 Z79.899 Other termination clerk (current) drug Rodriguez Schaffer M.D. therapy Plan of Treatment Future Appointment(s):10/04/2019 9:30 am - Ivon Lopez NP at [facility]08/30/2019 8:50 am - Carmencita Petit M.D. at [facility] Internal Medicine - [facility]09/18/2019 11:50 am - Carmencita Petit M.D. at [facility] - [facility]10/09/2019 1:30 pm - PORTILLO Rivas at [facility]10/17/2019 10:00 am - Royal Arizmendi M.D. at [facility]08/18/2019 - Ivon Lopez, NPJ45.909 Unspecified asthma, uncomplicatedNew Medication:Breo Ellipta 100-25 mcg/Inh - 1 puff inhaled dailyRecommendations:Remember to rinse your mouth out after using BreoG47.33 Obstructive sleep apnea (adult) (pediatric)Follow up:6 weeksRecommendations:You are being set up with CPAP for your sleep apnea [facility] . They will call you to set up an appointment to get fit for a mask and crab picker your machine. If your insurance requires you to have a new sleep study, you will hear from our office. If you have difficulty with your equipment, or need to replace your mask or hoses, please contact your homecare agency. Ifyou have any further questions, please call the [facility] at [phone] If you have any sleepiness while driving you MUST avoid operating a vehicle or machinery. If you feel tired while driving chain puller and take a nap or switch drivers. If you know you are sleepy and need to go somewhere, arrange for a ride or use public transportation. It is very important to not risk your safety or the safety of others.Z86.73 Personal history of transient ischemic attack (TIA), and cerebral infarction without rrjyomfuzrjlfygpQ85.9 Obesity, unspecified Functional Status Description No Information Available Mental Status Description No Information Available Referrals Refer to Reason for Referral Status Appt Date Lior Llanes MD Created [address] [place] [address] [phone] Ann Wilson MD Sent [address] [place], [place] [id number] [phone] Doug Thorne MD Please evaluate and treat cervical radiculopathy Sent [address] [facility] [address] [place] [address] [phone] Christiano Puga MD Please evaluate and treat iron Received Partial deficiency anemia and determine cause of rising white count to see if there is a hematologic cause of anemia and leukocytosis and elevated inflammatory markers SECOND REQUEST [address] [place], [place] [id number] [phone] Anamika Elena MD please evaluate and treat patient with Scheduled 05/03/2019 asymmetric upper extremity weakness now extruded paracentral disc associated severe cervical neural foraminal stenosis [address] [facility], [place] [address] [phone] Royal Arizmendi MD Please evaluate patient with new onset left upper Sent extremity weakness, history of an inflammatory arthropathy [address] [place], [place] [address] [phone]
--- OUTSIDE RECORDS SUMMARY | 2019-09-21 14:28 | XMS REPORT | Continuity of Care Document ---
:1980 External Reference #:[id number] Author Name Anamika Elena MD (transmitted by agent of provider Nurys Collins ) Address [address] [place] [address] Care Team Providers Name Role Phone Carmencita Petit MD - Internal Care Team Information Brake Engineer [phone] Medicine Problems Active Problems Provider Date Depressive [...] nightly to 2units G56.03 Rodriguez Schaffer, 11/25/2017 [facility] help with M.D. discomfort in the right [...] mouth ER Gabapentin take 1 capsule by 30capkarl Schaffer, 04/18/2019 - 100mg Capsules mouth at night for M.DZachary 05/10/2019 1 week then 1 by mouth twice daily ongoing Gabapentin take one 30caps Rodriguez Cantrelldor, 04/13/2019 - 300mg Capsules capsule/tablet by M.DZachary 04/18/2019 mouth at night for 1 week then 1 twice daily ongoing Prednisone Every Day Unknown 04/10/2019 - 20mg Tablets 04/27/2019 Methotrexate Sodium Weekly Unknown 04/08/2019 - 2.5mg 04/18/2019 Tablets Valium Bedtime 3tabs Unknown 04/08/2019 - 5mg Tablets 04/18/2019 Methotrexate take 4 30tabs Rodriguez Sarbjit, 03/30/2019 - 2.5mg capsules/tablets by M.Santiago 04/18/2019 Tablets mouth once weekly on Folic Acid take one 90tabs Rodriguez Cantrelldor, 03/30/2019 - 1mg Tablets capsule/tablet M.DZachary 04/27/2019 daily by mouth Immunizations CPT Code Status Date Vaccine Lot # [id number] Refused 10/06/2017 Influenza Virus Vaccine, Quadrivalent, Split, Preservative Free Vital Signs Date Vital Result Comment 08/18/2019 11:10am Height 64 inches 5'4" Weight 247.00 lb Heart Rate 88 /min BP Systolic 110 mmHg BP Diastolic 76 mmHg Body Temperature 97.9 F Pain Level 0 no pain today but discomfort due to collar O2 % BldC Oximetry 94 % BMI (Body Mass Index) 42.4 kg/m2 08/18/2019 8:40am Height 64 inches 5'4" Weight 247.00 lb Heart Rate 70 /min BP Systolic 120 mmHg BP Diastolic 72 mmHg O2 % BldC Oximetry 96 % BMI (Body Mass Index) 42.4 kg/m2 Results Test Acquired Facility Test Result H/L Range Note Date Laboratory test 08/09/2019 [facility] Methylmalonic 0.11 <= 0.40 [address] Acid Mma nmol/[place] [address] [phone] Urine Culture And 08/09/2019 [facility] Urine Culture SEE [address] [place] [address] BELOW [phone] Laboratory test 08/09/2019 [facility] Vitamin B12 240 pg/mL Normal 180-914 [address] [facility] [place] [address] [phone] Hemoglobin A1c (Glyco HGB) 6.5 % High 4.0-5.6 4 Urinalysis Profile 08/09/2019 [facility] Urine Color Yellow [address] [place] [address] [phone] Urine Appearance Clear Urine Specific Hinckley > 1.060 High 1.010-1.030 Urine pH 5.0 [...] Epithelial Cell Present Abnormal Absent Laboratory 08/09/2019 [facility] Lactic Acid 2.2 Critical 0.5- 2.0 5 test finding [facility] mmol/[place] [address] [phone] Lipid Profile 08/09/2019 [facility] Triglycerides 170 mg/dL 6 (Trig/Chol/HD L) [place] [address] [phone] Cholesterol 189 mg/dL 7 HDL Cholesterol 35.8 mg/dL 8 LDL Cholesterol 119 mg/dL 9 Comp Metabolic 08/09/2019 [facility] Sodium 138 mmol/L Normal 135-145 [place] [address] [phone] Potassium 4.1 mmol/L Normal 3.5-5.0 Chloride 104 [...] Egfr 158.8 >60 10 Laboratory test 08/09/2019 [facility] Partial 35.0 Normal 26.0 -38.[address] [place] [address] Time PTT [phone] Troponin-I (TnI) 0.00 ng/mL <0.03 11 Inr/Protime 08/09/2019 [facility] Inr 0.92 Normal 0.82-1.[address] [place] [address] [phone] CBC Auto Diff 08/09/2019 [facility] White Blood 7.7 Normal 3.5 -10.[address] Count 10^3/[place] [address] [phone] Red Blood Count 4.45 10^6/uL Normal 3.70-4.87 [...] Blood Cells % 0.1 Laboratory test 07/11/2019 [facility] Point of 122 mg/dL High 70-100 [address] [place] [address] [phone] Urinalysis 07/08/2019 [facility] Urine Color Colorless Profile [address] [place] [address] [phone] Urine Appearance Clear Urine Specific Hinckley 1.002 Low 1.010-1.030 Urine pH 6.0 Normal 5-9 Urine Urobilinogen Negative Negative Urine Ketones Negative Negative Urine Protein Negative Negative Urine Leukocytes Negative Negative Urine Blood Negative Negative Urine Nitrite Negative Negative Urine Bilirubin Negative Negative Urine Glucose Negative Negative Urine Culture And 07/08/2019 [facility] Urine SEE RESULT [address] [place] [address] [phone] Laboratory test 07/05/2019 [facility] Partial 37.6 seconds Normal 26.[address] Thrombo -38. [place] [address] Time PTT 0 [phone] Inr/Protime 07/05/2019 [facility] Inr 0.99 Normal 0.[address] -1.0 [place] [address] [phone] Urine Culture And 06/29/2019 [facility] Urine SEE RESULT [address] [place] [address] [phone] Type & Screen 06/29/2019 [facility] Patient A Positive [address] [place] [address] [phone] Antibody Screen NEGATIVE Laboratory 06/29/2019 [facility] Partial 43.4 High 26.0-38.0 test finding [address] [place] [address] Time PTT [phone] Inr/Protime 06/29/2019 [facility] Inr 1.03 Normal 0.82-1.[address] [place] [address] [phone] CBC No Diff 06/29/2019 [facility] White Blood 10.5 Normal 3.5- 10.[address] Count 10^3/uL [place], [place] [address] [phone] Red Blood Count 4.93 10^6/uL High 3.70-4.87 Hemoglobin 11.5 g/dL Low 12.0-16.0 Hematocrit 36 % Normal 35-47 Mean Corpuscular Volume 72 fL Low 80-97 Mean Corpuscular Hemoglobin 23 pg Low 27-31 Mean Corpuscular HGB Conc 32 g/dL Normal 31-36 Red Cell Distribution Width 17 % High 10-15 Platelet Count 228 10^3/uL Normal 150-450 Mean Platelet Volume 8.6 fL Normal 7.4-10.4 Laboratory test 06/29/2019 [facility] HCG < 0.60 [address] mIU/[place] [address] [phone] Basic Metabolic 06/29/2019 [facility] Sodium 137 mmol/L Normal 135-[address] [place] [address] [phone] Potassium 4.2 mmol/L Normal 3.5-5.0 Chloride 101 mmol/L Normal 101-111 Co2 Carbon Dioxide 29 mmol/L Normal 22-32 Anion Gap 7 mmol/L Normal 2-11 Glucose 76 mg/dL Normal 70-100 Blood Urea Nitrogen 8 mg/dL Normal 6-24 Creatinine 0.58 mg/dL Normal 0.51-0.95 BUN/Creatinine Ratio 13.8 Normal 8-20 Calcium 9.5 mg/dL Normal 8.6-10.3 Egfr Non- 115.7 >60 Egfr 140.0 >60 20 Urinalysis Profile 06/29/2019 [facility] Urine Color Yellow [address] [place] [address] [phone] Urine Appearance Cloudy Urine Specific Hinckley 1.019 Normal 1.010-1.030 Urine pH 5.0 Normal [...] Cell Present Abnormal Absent CBC Auto 06/27/2019 [facility] White Blood 10.6 10^3/uL Normal 3.5-10.[address] [place] [address] [phone] Red Blood Count 4.89 10^6/uL High 3.70-4.87 [...] Blood Cells % 0.1 Comp Metabolic 06/27/2019 [facility] Sodium 137 mmol/L Normal 135-[address] [place] [address] [phone] Potassium 4.6 mmol/L Normal 3.5-5.0 Chloride 102 [...] Egfr 140.0 >60 23 Laboratory test 06/27/2019 [facility] Hemoglobin A1c 6.4 % High 4.0-5.6 [address] (Glyco HGB) [place] [address] [phone] Laboratory test 05/11/2019 [facility] C Reactive 16.04 High < 8.[address] Protein mg/[place] [address] [phone] Urinalysis 05/11/2019 [facility] Urine Color Genna Profile [address] [place] [address] [phone] Urine Appearance Turbid Urine Specific Hinckley 1.015 Normal 1.010-1.030 Urine pH 5.0 Normal 5-9 Urine Urobilinogen Negative Negative Urine Ketones Negative Negative Urine Protein Negative Negative Urine Leukocytes Negative Negative Urine Blood Negative Negative Urine Nitrite Negative Negative Urine Bilirubin Negative Negative Urine Glucose Negative Negative Laboratory test 05/11/2019 [facility] Erythrocyte Sed 35 mm/Hr High 0-[address] [place] [address] [phone] Comp Metabolic 05/11/2019 [facility] Sodium 137 Normal 135- [address] mmol/[place] [address] [phone] Potassium 4.4 mmol/L Normal 3.5-5.0 Chloride 105 [...] Egfr 142.9 >60 25 CBC Auto 05/11/2019 [facility] White Blood 8.6 10^3/uL Normal 3.5-10.[address] [place] [address] [phone] Red Blood Count 4.96 10^6/uL High 3.70-4.87 [...] % 0.0 Iron & Iron Binding 04/26/2019 [facility] Iron 33 g/dL Low 50-[address] [place] [address] [phone] Unsaturated Iron Binding < 451 g/dL Total Iron Binding Capacity 466 g/dL High 250-450 Transferrin 333 mg/dL Normal 203-362 % Iron Saturation 7 % Low 15-55 Vitamin B12 04/26/2019 [facility] Vitamin B12 334 pg/mL Normal 180-914 27 [address] Folate [address] [place] [address] [phone] Folic Acid (Folate) 18.08 ng/mL >3.99 Laboratory test 04/26/2019 [facility] Ferritin 21.0 Normal 11- [address] ng/[place] [address] [phone] Laboratory test 04/14/2019 [facility] Erythrocyte Sed 31 mm/Hr High 0-[address] [place] [address] [phone] C Reactive Protein 11.99 mg/L High <8.01 CBC Auto 04/14/2019 [facility] White Blood 13.7 10^3/uL High 3.5-10.[address] [place] [address] [phone] Red Blood Count 4.59 10^6/uL Normal 3.70-4.87 [...] Cells % 0.1 Comp Metabolic 04/14/2019 [facility] Sodium 139 mmol/L Normal 135-[address] [place] [address] [phone] Potassium 4.2 mmol/L Normal 3.5-5.0 Chloride 104 [...] Egfr 107.4 >60 29 CBC Auto 04/10/2019 [facility] White Blood 11.2 10^3/uL High 3.5-10.[address] [place] [address] [phone] Red Blood Count 5.05 10^6/uL High 3.70-4.87 [...] Blood Cells % 0.0 Comp Metabolic 04/10/2019 [facility] Sodium 135 mmol/L Normal 135-[address] [place] [address] [phone] Potassium 4.4 mmol/L Normal 3.5-5.0 Chloride 101 [...] Egfr 125.0 >60 31 Laboratory test 04/10/2019 [facility] C Reactive 8.82 mg/L High <8.[address] [place] [address] [phone] ADDITIONAL INFORMATION This test was developed and its performance characteristics determined by [facility] in a manner consistent with CLIA requirements. This test has not been cleared or approved by the U.S. Food and Drug Administration. Test Performed by: [facility] [address] Power Plant Supervisor: Jus Polo M.D. Ph.D.; CLIA# [id number] 2 SEE RESULT BELOW Name: ANANYA FELICIANO : [address]: Keli Mendoza DO Acct: [id number] Unit: [id number] AGE: 38 Location: [place] [address] Re08/09/19 Dis: 08/10/19 SEX: F Status: DIS Bren SPEC: [id number] RAVEN: 08/09/19-[address]: Mac Galindo MD REQ: [id number] RECD: 11/ STATUS: COMP OTHR : Carmencita Petit MD _ SOURCE: URINE [facility]: ORDERED: Urine Culture Procedure Result Reported Site Urine Culture Final 08/11/19- 1122 ML Organism 1 STREP GROUP B Bude Count 10-25,000 (Moderate) CFU/ML Organism 2 NORMAL GABBY Bude Count 10-25,000 (Moderate) CFU/ML Susceptibility testing of penicillins and other B-lactams approved by FDA for treatment of Streptococcus pyogenes (Group A Strep) and Streptococcus agalactiae (Group B Strep) is not necessary for clinical purposes and need not be done routinely, since as with vancomycin, resistant strains have not been recognized. (CLSI Q544-R87;p.66) Positive isolates will be saved for one week. Please call the Microbiology Laboratory if further susceptibility testing is needed. * ML - Main Lab . END OF REPORT DEPARTMENT OF PATHOLOGY, [address] [place] [address] Berto Paul M.D. Director [facility] # [id number] 3 Normal Range 180 to 914 Indeterminate Range 145 to 180 Deficient Range <145 4 Therapeutic target for the treatment of diabetes mellitus patients is <7% HBA1C, and in selective patients <6.0%. Please refer to [place] [employer] diabetic care guidelines for further information. 5 Critical Result LACT:2.2 Called to [id number] at: 12:19:09 by:[email or web address] Read back by:[facility] Severe Sepsis and Septic Shock Management [...] immediately to secondary confirmatory testing. Using the YAZUO DxI 800 Access Immunoassay systems, the 99th percentile upper reference limit was demonstrated to be < 0.03 ng/mL. 12 Standard intensity warfarin therapeutic range: 2.0-3.0 High intensity warfarin therapeutic range: 2.5-3.5 13 Consistent with Previous Results Reported on 07/12/19 14 Schedule Clerk: [id number] 15 SEE RESULT BELOW Name: PITERSEDA ANANYA ALEXANDER : [address]: Carmencita Petit MD Acct: [id number] Unit: [id number] AGE: 38 Location: LAB Re07/08/19 SEX: F Status: REG REF SPEC: [id number] RAVEN: 07/08/[address]: Carmencita Petit MD REQ: [id number] RECD: 07/08/19 STATUS: COMP _ SOURCE: URINE SPDESC: ORDERED: Urine Culture Urine Source: Clean Catch Procedure Result Reported Site Urine Culture Final 07/09/19- 1215 ML No Growth (<1,000 CFU/mL) * ML - Main Lab . END OF REPORT DEPARTMENT OF PATHOLOGY, [address] [place] [address] Berto Paul M.D. Director [facility] # [id number] 16 Standard intensity warfarin therapeutic range: 2.0-3.0 High intensity warfarin therapeutic range: 2.5-3.5 17 SEE RESULT BELOW Name: ANANYA FELICIANO : [address]: Anamika Elena MD Acct: [id number] Unit: [id number] AGE: 38 Location: [facility] Re06/29/19 SEX: F Status: REG REF SPEC: [id number] RAVEN: 06/29/[address]: Anamika Elena MD REQ: [id number] RECD: 06/29/19 STATUS: COMP _ SOURCE: URINE SPDESC: ORDERED: Urine Culture Procedure Result Reported Site Urine Culture Final 06/30/19- 1329 ML Organism 1 STREP GROUP B Bude Count 75-100,000 (Many) CFU/ML Susceptibility testing of penicillins and other B-lactams approved by FDA for treatment of Streptococcus pyogenes (Group A Strep) and Streptococcus agalactiae (Group B Strep) is not necessary for clinical purposes and need not be done routinely, since as with vancomycin, resistant strains have not been recognized. (CLSI S707-P48;p.66) Positive isolates will be saved for one week. Please call the Microbiology Laboratory if further susceptibility testing is needed. * ML - Main Lab . END OF REPORT DEPARTMENT OF PATHOLOGY, [address] [place] [address] Berto Paul M.D. Director [facility] # [id number] 18 Standard intensity warfarin therapeutic range: 2.0-3.0 [...] in selective patients <6.0%. Please refer to [place] [employer] diabetic care guidelines for further [...] dialysis) Procedures Date Code Description Status 08/10/2019 55937 ECHO Transthorasic Realtime 2D W Doppler & Color Flow Completed Hosp 07/11/2019 41368 Insertion Interbody Biomechanical Device; Each Completed Interspace 07/11/2019 29418 Insertion Interbody Biomechanical Device; Each Completed Interspace 07/11/2019 59091 Anterior Instrumentation 2-3 Vertebral Segments Completed 07/11/201991269 Anterior Instrumentation 2-3 Vertebral Segments Completed 07/11/2019 80089 arthrodesis,anterior interbody incl disc space Completed prep,discectomy,de 07/11/2019 98557 arthrodesis,anterior interbody incl disc space Completed prep,discectomy,de 07/11/201925856 Autograft For Spine Surgery (Incls Harvesting The Completed Graft) 07/11/2019 Allograft For Spine Surgery, Morselized Completed 06/27/2019 39879 EKG Tracing & Interpretation Completed 06/06/2019 796719818 Diabetic Retinal Eye Exam Completed 10/13/2016 16653313 Colonoscopy Completed Medical Devices Description No Information Available Encounters Type Date Location Provider Dx Diagnosis Office Visit 07/18/2019 [facility] Internal Carmencita Petit, R39.89 Other symptoms and 2:20p Medicine - Pramod Wilson signs involving the genitourinary system L30.9 Dermatitis, unspecified Office Visit 07/13/2019 [facility]a E11.9 Type 2 diabetes 11:57a Assmichoacano olivares PA-C mellitus without Hospitalists complications F32.9 Major depressive disorder, single episode, unspecified Z98.1 Arthrodesis status Office Visit 07/12/2019 [facility] F32.9 Major depressive 11:57a Assoc,pc [place], LEAD CARPENTER disorder, single Hospitalists episode, unspecified E11.9 Type 2 diabetes mellitus without complications Z98.1 Arthrodesis status Office Visit 07/11/2019 [facility] F32.9 Major depressive 11:57a Assoc,pc [place], LEAD CARPENTER disorder, single Hospitalists episode, unspecified R73.01 Impaired fasting glucose J45.909 Unspecified asthma, uncomplicated Z98.1 Arthrodesis status Office Visit 06/27/2019 8:30a [facility] Internal Cesia Z01.818 Encounter for [...] polyarthropathy R70.0 Elevated erythrocyte sedimentation rate Z79.1 predatory animal exterminator (current) use of non-steroidal non-inflam (Nsaid) N39.41 Urge incontinence Office Visit 04/28/2019 Neurosurgery [facility]ji M50.022 Cervical disc 11:00a Services Of [facility] Clark disorder at C5-C6 level with myelopathy Office Visit 04/18/2019 Rheumatology Rodriguez M06.4 Inflammatory 3:00p Services Of Stacey Schaffer M.D. polyarthropathy R79.82 Elevated C-reactive protein (CRP) R70.0 Elevated erythrocyte sedimentation rate Z79.899 Other intermediate accountant (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 polyarthropathy R79.82 Elevated C-reactive protein (CRP) R70.0 Elevated erythrocyte sedimentation rate Z79.899 Other penitentiary (current) drug therapy Assessments Date Code Description Provider 08/18/2019 M50.122 Cervical disc disorder at C5-C6 Anamika Elena MD level with radiculopathy 08/18/2019 J45.909 Unspecified asthma, uncomplicated Ivon Lopez NP 08/18/2019 M50.022 Cervical disc disorder at C5-C6 Anamika Elena MD level with myelopathy 08/18/2019 G47.33 Obstructive sleep apnea (adult) Ivon Lopez NP (pediatric) 08/18/2019 Z86.73 Personal history of transient Ivon Lopez NP ischemic attack (TIA), and cerebral infarction without residual deficits 08/18/2019 E66.9 Obesity, unspecified Ivon Lopez, LEAD CARPENTER 08/16/2019 Z86.73 Personal history of transient Carmencita Petit M.D. ischemic attack (TIA), and cerebral infarction without residual deficits 08/16/2019 G47.30 Sleep apnea, unspecified Carmencita Petit M.D. 08/10/2019 I63.9 Cerebral infarction, unspecified Howie Foster M.D., [facility] 07/19/2019 Z48.89 Encounter for other specified PORT[facility]O Rivas surgical aftercare 07/18/2019 R39.89 Other symptoms and signs involving Carmencita Petit M.D. the genitourinary system 07/18/2019 L30.9 Dermatitis, unspecified Carmencita Petit M.D. 07/13/2019 E11.9 Type 2 diabetes mellitus without Rafaela Angulo PA-C complications 07/13/2019 F32.9 Major depressive disorder, single RafaelaCALEB AndinoC episode, unspecified 07/13/2019 Z98.1 Arthrodesis status Rafaela Angulo PA-C 07/12/2019 F32.9 Major depressive disorder, single Sepideh Thrasher LEAD CARPENTER episode, unspecified 07/12/2019 E11.9 Type 2 diabetes mellitus without Sepideh Thrasher LEAD CARPENTER complications 07/12/2019 Z98.1 Arthrodesis status Sepideh Thrasher LEAD CARPENTER 07/11/2019 M50.022 Cervical disc disorder at C5-C6 PORTILLO Rivas level with myelopathy 07/11/2019 M50.022 Cervical disc disorder at C5-C6 Anamika Elena MD level with myelopathy 07/11/2019 M50.122 Cervical disc disorder at C5-C6 PORTILLO Rivas level with radiculopathy 07/11/2019 F32.9 Major depressive disorder, single Sepideh Thrasher LEAD CARPENTER episode, unspecified 07/11/2019 M50.122 Cervical disc disorder at C5-C6 Anamika Elena MD level with radiculopathy 07/11/2019 R73.01 Impaired fasting glucose Sepideh Thrasher LEAD CARPENTER 07/11/2019 J45.909 Unspecified asthma, uncomplicated Sepideh Thrasher LEAD CARPENTER 07/11/2019 Z98.1 Arthrodesis status Sepideh Thrasher, LEAD CARPENTER 06/27/2019 Z01.818 Encounter for other preprocedural Cesia [...] sedimentation Rodriguez Schaffer M.D. rate 05/10/2019 Z79.1 predatory animal exterminator (current) use of Rodriguez Schaffer M.D. non-steroidal anti-inflammatories (Nsaid) 05/10/2019 N39.41 Urge incontinence Rodriguez Schaffer M.D. 04/28/2019 M50.022 Cervical disc disorder at C5-C6 PORTILLO Rivas level with myelopathy 04/18/2019 M06.4 Inflammatory polyarthropathy Rodriguez Schaffer M.D. 04/18/2019 R79.82 Elevated C-reactive protein (CRP) Rodriguez Schaffer M.D. 04/18/2019 R70.0 Elevated erythrocyte sedimentation Rodriguez Schaffer M.D. rate 04/18/2019 Z79.899 Other penitentiary (current) drug Rodriguez Schaffer M.D. therapy 04/18/2019 M62.81 Muscle weakness (generalized) Rodriguez Schaffer M.D. 03/30/2019 M06.4 Inflammatory polyarthropathy Rodriguez Schaffer M.D. 03/30/2019 R79.82 Elevated C-reactive protein (CRP) Rodriguez Schaffer M.D. 03/30/2019 R70.0 Elevated erythrocyte sedimentation Rodriguez Schaffer M.D. rate 03/30/2019 Z79.899 Other intermediate accountant (current) drug Rodriguez Schaffer M.D. therapy Plan of Treatment Future Appointment(s):11/01/2019 11:30 am - Anamika Elena MD at [facility]surgery [facility]08/29/2019 1:00 pm - Tom Goldstein DO FACC at [facility]10/04/2019 9:30 am - Ivon Lopez NP at Pul[facility]ology [facility]08/30/2019 8:50 am - Carmencita Petit M.D. at [facility] Internal Medicine - [facility]09/18/2019 11:50 am - Carmencita Petit M.D. at [facility] Internal Medicine - [facility]10/09/2019 1:30 pm - PORTILLO Rivas at [facility]surgery [facility]10/17/2019 10:00 am - Royal Arizmendi M.D. at [facility]08/18/2019 - Anamika Elena, MDM50.122 Cervical disc disorder at C5-C6 level with radiculopathyFollow up:RV in 2 moths. Please obtain XR at that time.M50.022 Cervical disc disorder at C5-C6 level with myelopathy Functional Status Description No Information Available Mental Status Description No Information Available Referrals Refer to Dr Reason for Referral Status Appt Date Lior Llanes MD Created [address] [place] [address] [phone] Ann Wilson MD Sent [address] [place] [address] [phone] Doug Thorne MD Please evaluate and treat cervical radiculopathy Sent [address] [facility] [address] [place] [address] [phone] Christiano Puga MD Please evaluate and treat iron Received Partial deficiency anemia and determine cause of rising white count to see if there is a hematologic cause of anemia and leukocytosis and elevated inflammatory markers SECOND REQUEST [address] [place], [place] [address] [phone] Anamika Elena MD please evaluate and treat patient with Scheduled 05/03/2019 asymmetric upper extremity weakness now extruded paracentral disc associated severe cervical neural foraminal stenosis [address], [place] [address] [phone] Royal Arizmendi MD Please evaluate patient with new onset left upper Sent 00 / extremity weakness, history of an inflammatory arthropathy [address] [place] [address] [place] [address] [phone]
--- OUTSIDE RECORDS SUMMARY | 2019-09-21 14:28 | XMS REPORT | Continuity of Care Document ---
:1980 External Reference #:[id number] Author Name Carmencita Petit M.D. (transmitted by agent of provider Nellie New) Address [address], [place] [address] Care Team Providers Name Role Phone Carmencita Petit MD - Internal Care Team Information Manager Mac [phone] Medicine Problems Active Problems Provider Date Depressive [...] for Unknown 11 years Smoking Status Reviewed: 08/16/19 Former Cigarette Smoker Smoked 3/4 ppd for [...] Alvarez, 04/10/2019 500mg mouth once daily MD Tablets Meloxicam take one tab daily 30tabs M06.4 Rodriguez Schaffer, 11/03/2018 7.5mg Tablets as needed for M.D. pain, avoid other nsaids Pulmicort 9 Has Not Needed ) 180ml Carmencita Gomezan, 10/10/2018 0.25mg/2ML 1 unit nebulizer M.D. Suspension [...] 1 Tablet By Unknown Mouth Daily AT 5PM 40mg Tablets [facility] Acetaminophen 2 tab every 8 Unknown [...] Tablets 04/18/2019 Methotrexate take 4 30tabs Rodriguez Cantrelldor, 03/30/2019 - 2.5mg capsules/tablets by Katie 04/18/2019 Tablets mouth once weekly on Folic Acid take one 90tabs Rodriguez Schaffer, 03/30/2019 - 1mg Tablets capsule/tablet Katie 04/27/2019 daily by mouth Immunizations CPT Code Status Date Vaccine Lot # [id number] Refused 10/06/2017 Influenza Virus Vaccine, Quadrivalent, Split, Preservative Free Vital Signs Date Vital Result Comment 08/16/2019 11:46am Height 64 inches 5'4" Weight 274.00 lb Heart Rate 101 /min BP Systolic Sitting 133 mmHg BP Diastolic Sitting 87 mmHg Pain Level 0 O2 % BldC Oximetry 97 % BMI (Body Mass Index) 47.0 kg/m2 07/19/2019 10:19am Height 64 inches 5'4" Weight 276.00 lb Heart Rate 76 /min BP Systolic Sitting 140 mmHg BP Diastolic Sitting 76 mmHg Body Temperature 98.8 F Pain Level 5 Neck,Upper Shoulders BMI (Body Mass Index) 47.4 kg/m2 Results Test Acquired Facility Test Result H/L Range Note Date Laboratory test 08/09/2019 [facility] Methylmalonic 0.11 <= 0.[address] Acid Mma nmol/mL [place], [place] [id number] [phone] Urine Culture And 08/09/2019 [facility] Urine Culture SEE [address] [place] [address] BELOW [phone] Laboratory test 08/09/2019 [facility] Vitamin B12 240 pg/mL Normal 180-[address] [place], [place] [id number] [phone] Hemoglobin A1c (Glyco HGB) 6.5 % High 4.0-5.6 4 Urinalysis Profile 08/09/2019 [facility] Urine Color Yellow [address] [place] [address] [phone] Urine Appearance Clear Urine Specific [place] > 1.060 High 1.010-1.030 Urine pH 5.0 [...] Epithelial Cell Present Abnormal Absent Laboratory 08/09/2019 [facility] Lactic Acid 2.2 Critical 0.5- 2.0 [address] mmol/L high [place], [place] [address] [phone] Lipid Profile 08/09/2019 [facility] Triglycerides 170 mg/dL 6 (Trig/Chol/HD [address] L) [place] [address] [phone] Cholesterol 189 mg/dL 7 HDL Cholesterol 35.8 mg/dL 8 LDL Cholesterol 119 mg/dL 9 Comp Metabolic 08/09/2019 [facility] Sodium 138 mmol/L Normal 135-[address] [place] [address] [phone] Potassium 4.1 mmol/L Normal 3.5-5.0 Chloride 104 [...] Egfr 158.8 >60 10 Laboratory test 08/09/2019 [facility] Partial 35.0 Normal 26.0 -38.[address] [place] [address] Time PTT [phone] Troponin-I (TnI) 0.00 ng/mL <0.03 11 Inr/Protime 08/09/2019 [facility] Inr 0.92 Normal 0.82-1.[address] [place], [place] [id number] [phone] CBC Auto Diff 08/09/2019 [facility] White Blood 7.7 Normal 3.5 -10.[address] Count 10^3/[place] [address] [phone] Red Blood Count 4.45 10^6/uL Normal 3.70-4.87 [...] Blood Cells % 0.1 Laboratory test 07/11/2019 [facility] Point of 122 mg/dL High 70-100 [address] [place] [address] [phone] Urinalysis 07/08/2019 [facility] Urine Color Colorless Profile [address] [place] [address] [phone] Urine Appearance Clear Urine Specific [place] 1.002 Low 1.010-1.030 Urine pH 6.0 Normal 5-9 Urine Urobilinogen Negative Negative Urine Ketones Negative Negative Urine Protein Negative Negative Urine Leukocytes Negative Negative Urine Blood Negative Negative Urine Nitrite Negative Negative Urine Bilirubin Negative Negative Urine Glucose Negative Negative Urine Culture And 07/08/2019 [facility] Urine SEE RESULT [address] [place] [place] [address] [phone] Laboratory test 07/05/2019 [facility] Partial 37.6 seconds Normal 26.[address] Thrombo -38. [place] [address] Time PTT [phone] Inr/Protime 07/05/2019 [facility] Inr 0.99 Normal 0.[address] -1.0 [place] [address] 9 [phone] Urine Culture And 06/29/2019 [facility] Urine SEE RESULT [address] [place] [address] [phone] Type & Screen 06/29/2019 [facility] Patient A Positive [address] [place] [address] [phone] Antibody Screen NEGATIVE Laboratory 06/29/2019 [facility] Partial 43.4 High 26.0-38.0 test finding [address] [place] [address] Time PTT [phone] Inr/Protime 06/29/2019 [facility] Inr 1.03 Normal 0.82-1.[address] [place] [address] [phone] CBC No Diff 06/29/2019 [facility] White Blood 10.5 Normal 3.5- 10.[address] Count 10^3/[place] [address] [phone] Red Blood Count 4.93 10^6/uL High 3.70-4.87 Hemoglobin 11.5 g/dL Low 12.0-16.0 Hematocrit 36 % Normal 35-47 Mean Corpuscular Volume 72 fL Low 80-97 Mean Corpuscular Hemoglobin 23 pg Low 27-31 Mean Corpuscular HGB Conc 32 g/dL Normal 31-36 Red Cell Distribution Width 17 % High 10-15 Platelet Count 228 10^3/uL Normal 150-450 Mean Platelet Volume 8.6 fL Normal 7.4-10.4 Laboratory test 06/29/2019 [facility] HCG < 0.60 [address] mIU/[place] [address] [phone] Basic Metabolic 06/29/2019 [facility] Sodium 137 mmol/L Normal 135-[address] [place] [address] [phone] Potassium 4.2 mmol/L Normal 3.5-5.0 Chloride 101 mmol/L Normal 101-111 Co2 Carbon Dioxide 29 mmol/L Normal 22-32 Anion Gap 7 mmol/L Normal 2-11 Glucose 76 mg/dL Normal 70-100 Blood Urea Nitrogen 8 mg/dL Normal 6-24 Creatinine 0.58 mg/dL Normal 0.51-0.95 BUN/Creatinine Ratio 13.8 Normal 8-20 Calcium 9.5 mg/dL Normal 8.6-10.3 Egfr Non- 115.7 >60 Egfr 140.0 >60 20 Urinalysis Profile 06/29/2019 [facility] Urine Color Yellow [address] [place] [address] [phone] Urine Appearance Cloudy Urine Specific [place] 1.019 Normal 1.010-1.030 Urine pH 5.0 Normal [...] Cell Present Abnormal Absent CBC Auto 06/27/2019 [facility] White Blood 10.6 10^3/uL Normal 3.5-10.[address] [place] [address] [phone] Red Blood Count 4.89 10^6/uL High 3.70-4.87 [...] Blood Cells % 0.1 Comp Metabolic 06/27/2019 [facility] Sodium 137 mmol/L Normal 135-145 Panel [address] [place] [address] [phone] Potassium 4.6 mmol/L Normal 3.5-5.0 Chloride 102 [...] Egfr 140.0 >60 23 Laboratory test 06/27/2019 [facility] Hemoglobin A1c 6.4 % High 4.0-5.[address] (Glyco HGB) [place] [address] [phone] Laboratory test 05/11/2019 [facility] C Reactive 16.04 High < 8.[address] Protein mg/[place] [address] [phone] Urinalysis 05/11/2019 [facility] Urine Color Genna Profile [address] [place] [address] [phone] Urine Appearance Turbid Urine Specific [place] 1.015 Normal 1.010-1.030 Urine pH 5.0 Normal 5-9 Urine Urobilinogen Negative Negative Urine Ketones Negative Negative Urine Protein Negative Negative Urine Leukocytes Negative Negative Urine Blood Negative Negative Urine Nitrite Negative Negative Urine Bilirubin Negative Negative Urine Glucose Negative Negative Laboratory test 05/11/2019 [facility] Erythrocyte Sed 35 mm/Hr High 0-[address] [place] [address] [phone] Comp Metabolic 05/11/2019 [facility] Sodium 137 Normal 135- [address] mmol/[place] [address] [phone] Potassium 4.4 mmol/L Normal 3.5-5.0 Chloride 105 [...] Egfr 142.9 >60 25 CBC Auto 05/11/2019 [facility] White Blood 8.6 10^3/uL Normal 3.5-10.[address] [place] [address] [phone] Red Blood Count 4.96 10^6/uL High 3.70-4.87 [...] % 0.0 Iron & Iron Binding 04/26/2019 [facility] Iron 33 g/dL Low 50-[address] [place] [address] [phone] Unsaturated Iron Binding < 451 g/dL Total Iron Binding Capacity 466 g/dL High 250-450 Transferrin 333 mg/dL Normal 203-362 % Iron Saturation 7 % Low 15-55 Vitamin B12 04/26/2019 [facility] Vitamin B12 334 pg/mL Normal 180-914 27 [address] Folate [address] [place] [address] [phone] Folic Acid (Folate) 18.08 ng/mL >3.99 Laboratory test 04/26/2019 [facility] Ferritin 21.0 Normal 11- [address] ng/mL [place], [place] [address] [phone] Laboratory test 04/14/2019 [facility] Erythrocyte Sed 31 mm/Hr High 0-[address] [place] [address] [phone] C Reactive Protein 11.99 mg/L High <8.01 CBC Auto 04/14/2019 [facility] White Blood 13.7 10^3/uL High 3.5-10.[address] [place] [address] [phone] Red Blood Count 4.59 10^6/uL Normal 3.70-4.87 [...] Blood Cells % 0.1 Comp Metabolic 04/14/2019 [facility] Sodium 139 mmol/L Normal 135-[address] [place] [address] [phone] Potassium 4.2 mmol/L Normal 3.5-5.0 Chloride 104 [...] Egfr 107.4 >60 29 CBC Auto 04/10/2019 [facility] White Blood 11.2 10^3/uL High 3.5-10.[address] [place] [address] [phone] Red Blood Count 5.05 10^6/uL High 3.70-4.87 [...] Blood Cells % 0.0 Comp Metabolic 04/10/2019 [facility] Sodium 135 mmol/L Normal 135-[address] [place] [address] [phone] Potassium 4.4 mmol/L Normal 3.5-5.0 Chloride 101 [...] Egfr 125.0 >60 31 Laboratory test 04/10/2019 [facility] C Reactive 8.82 mg/L High <8.[address] [place] [address] [phone] 1 ADDITIONAL INFORMATION This test was developed and its performance characteristics determined by [facility] in a manner consistent with CLIA requirements. This test has not been cleared or approved by the U.S. Food and Drug Administration. Test Performed by: [place] [address] Band Lining Bander: Jus Polo M.D. Ph.D.; CLIA# [id number] 2 SEE RESULT BELOW Name: ANANYA FELICIANO : [address]: Keli Mendoza DO Acct: [id number] Unit: [id number] AGE: 38 Location: [place] [address] Re08/09/19 Dis: 08/10/19 SEX: F Status: DIS Bren SPEC: [id number] RAVEN: 08/09/19-13[address] [facility] [address]: Mac Galindo MD REQ: [id number] RECD: 08/09/19-1325 STATUS: VENUS SMITH DR: Carmencita Petit MD _ SOURCE: URINE SPDESC: ORDERED: Urine Culture Procedure Result Reported Site Urine Culture Final 08/11/19- 1122 ML Organism 1 STREP GROUP B [place] Count 10-25,000 (Moderate) CFU/ML Organism 2 NORMAL GABBY [place] Count 10-25,000 (Moderate) CFU/ML Susceptibility testing of penicillins and other B-lactams approved by FDA for treatment of Streptococcus pyogenes (Group A Strep) and Streptococcus agalactiae (Group B Strep) is not necessary for clinical purposes and need not be done routinely, since as with vancomycin, resistant strains have not been recognized. (CLSI U944-M03;p.66) Positive isolates will be saved for one week. Please call the Microbiology Laboratory if further susceptibility testing is needed. * ML - Main Lab . END OF REPORT DEPARTMENT OF PATHOLOGY, [address] [place] [address] Berto Paul M.D. Director [facility] # [id number] 3 Normal Range 180 to 914 Indeterminate Range 145 to 180 Deficient Range <145 4 Therapeutic target for the treatment of diabetes mellitus patients is <7% HBA1C, and in selective patients <6.0%. Please refer to [place] [employer] diabetic care guidelines for further information. 5 Critical Result LACT:2.2 Called to [id number] at: 12:19:09 by:[id number] Read back by:ALEXANDER WORKMAN Severe Sepsis and Septic Shock Management Bundle [...] immediately to secondary confirmatory testing. Using the [employer]ne[employer] DxI 800 Access Immunoassay systems, the 99th percentile upper reference limit was demonstrated to be < 0.03 ng/mL. 12 Standard intensity warfarin therapeutic range: 2.0-3.0 High intensity warfarin therapeutic range: 2.5-3.5 13 Consistent with Previous Results Reported on 07/12/19 14 Digital Technician: [id number] 15 SEE RESULT BELOW Name: ANANYA FELICIANO : [address]: Carmencita Petit MD Acct: [id number] Unit: [id number] AGE: 38 Location: LAB Re07/08/19 SEX: F Status: REG REF SPEC: [id number] RAVEN: 07/08/[address]: Carmencita Petit MD REQ: [id number] RECD: 07/08/19 STATUS: COMP _ SOURCE: URINE SPDESC: ORDERED: Urine Culture Urine Source: Clean Catch Procedure Result Reported Site Urine Culture Final 07/09/19- 1215 ML No Growth (<1,000 CFU/mL) * ML - Main Lab . END OF REPORT DEPARTMENT OF PATHOLOGY, [address] [place] [address] Berto Paul M.D. Director [facility] # [id number] 16 Standard intensity warfarin therapeutic range: 2.0-3.0 High intensity warfarin therapeutic range: 2.5-3.5 17 SEE RESULT BELOW Name: ANANYA FELICIANO : [address]: Anamika Elena MD Acct: [id number] Unit: [id number] AGE: 38 Location: [facility] Re06/29/19 SEX: F Status: REG REF SPEC: [id number] RAVEN: 06/29/[address]: Anamika Elena MD REQ: [id number] RECD: 06/29/19 STATUS: COMP _ SOURCE: URINE SPDESC: ORDERED: Urine Culture Procedure Result Reported Site Urine Culture Final 06/30/19- 1329 ML Organism 1 STREP GROUP B [place] Count 75-100,000 (Many) CFU/ML Susceptibility testing of penicillins and other B-lactams approved by FDA for treatment of Streptococcus pyogenes (Group A Strep) and Streptococcus agalactiae (Group B Strep) is not necessary for clinical purposes and need not be done routinely, since as with vancomycin, resistant strains have not been recognized. (CLSI I023-L53;p.66) Positive isolates will be saved for one week. Please call the Microbiology Laboratory if further susceptibility testing is needed. * ML - Main Lab . END OF REPORT DEPARTMENT OF PATHOLOGY, [address] [place] [address] Berto Paul M.D. Director [facility] # [id number] 18 Standard intensity warfarin therapeutic range: 2.0-3.0 [...] in selective patients <6.0%. Please refer to [place] [employer] diabetic care guidelines for further [...] (or dialysis) Procedures Date Code Description Status 07/11/2019 91614 Insertion Interbody Biomechanical Device; Each Completed Interspace 07/11/2019 17936 Insertion Interbody Biomechanical Device; Each Completed Interspace 07/11/2019 94292 Anterior Instrumentation 2-3 Vertebral Segments Completed 07/11/2019 88159 Anterior Instrumentation 2-3 Vertebral Segments Completed 07/11/2019 65495 arthrodesis,anterior interbody incl disc space Completed prep,discectomy,de 07/11/2019 09655 arthrodesis,anterior interbody incl disc space Completed prep,discectomy,de 07/11/2019 74422 Autograft For Spine Surgery ([employer]cls Harvesting The Completed Graft) 07/11/2019 Allograft For Spine Surgery, Morselized Completed 06/27/2019 44686 EKG Tracing & Interpretation Completed 06/06/2019 [id number] Diabetic Retinal Eye Exam Completed 10/13/2016 22747362 Colonoscopy Completed Medical Devices Description No Information Available Encounters Type Date Location Provider Dx Diagnosis Office Visit 07/18/2019 [facility] Internal Carmencita Petit, R39.89 Other symptoms and 2:20p Medicine - Ccmob M.D. signs involving the genitourinary system L30.9 Dermatitis, unspecified Office Visit 07/13/2019 [facility] [place] Rafaela E11.9 Type 2 diabetes 11:57a Assoc,michoacano Angulo PA-C mellitus without Hospitalists complications F32.9 Major depressive disorder, single episode, unspecified Z98.1 Arthrodesis status Office Visit 07/12/2019 [facility] F32.9 Major depressive 11:57a Assoc,pc Anna Marie, CHAINSTITCH FELLED SEAM OPERATOR disorder, single Hospitalists episode, unspecified E11.9 Type 2 diabetes mellitus without complications Z98.1 Arthrodesis status Office Visit 07/11/2019 [facility] F32.9 Major depressive 11:57a Assoc,pc [place], CHAINSTITCH FELLED SEAM OPERATOR disorder, single Hospitalists episode, unspecified R73.01 Impaired fasting glucose J45.909 Unspecified asthma, uncomplicated Z98.1 Arthrodesis status Office Visit 06/27/2019 8:30a [facility] Internal Cesia Z01.818 Encounter for other Medicine [...] polyarthropathy R70.0 Elevated erythrocyte sedimentation rate Z79.1 superintendent terminal (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 polyarthropathy R79.82 Elevated C-reactive protein (CRP) R70.0 Elevated erythrocyte sedimentation rate Z79.899 Other emt intermediate (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 07/19/2019 Z48.89 Encounter for other specified surgical PORT[facility] Rivas aftercare 07/18/2019 R39.89 Other symptoms and signs involving the Carmencita Petit M.D. genitourinary system 07/18/2019 L30.9 Dermatitis, unspecified Carmencita Petit M.D. 07/13/2019 E11.9 Type 2 diabetes mellitus without Rafaela Angulo PA-C complications 07/13/2019 F32.9 Major depressive disorder, single Rafaela Angulo PA-C episode, unspecified 07/13/2019 Z98.1 Arthrodesis status Rafaela Angulo PA-C 07/12/2019 F32.9 Major depressive disorder, single Sepideh Thrasher, CHAINSTITCH FELLED SEAM OPERATOR episode, unspecified 07/12/2019 E11.9 Type 2 diabetes mellitus without Sepideh Thrasher, CHAINSTITCH FELLED SEAM OPERATOR complications 07/12/2019 Z98.1 Arthrodesis status Sepideh Thrasher, CHAINSTITCH FELLED SEAM OPERATOR 07/11/2019 M50.022 Cervical disc disorder at C5-C6 level PORT[facility] Rivas with myelopathy 07/11/2019 M50.022 Cervical disc disorder at C5-C6 level Anamika Elena MD with myelopathy 07/11/2019 M50.122 Cervical disc disorder at C5-C6 level [facility] Rivas with radiculopathy 07/11/2019 F32.9 Major depressive disorder, single Sepideh Thrasher, CHAINSTITCH FELLED SEAM OPERATOR episode, unspecified 07/11/2019 M50.122 Cervical disc disorder at C5-C6 level Anamika Elena MD with radiculopathy 07/11/2019 R73.01 Impaired fasting glucose Sepideh Thrasher, CHAINSTITCH FELLED SEAM OPERATOR 07/11/2019 J45.909 Unspecified asthma, uncomplicated Sepideh Thrasher, CHAINSTITCH FELLED SEAM OPERATOR 07/11/2019 Z98.1 Arthrodesis status Sepideh Thrasher, CHAINSTITCH FELLED SEAM OPERATOR 06/27/2019 Z01.818 Encounter for other preprocedural Cesia [...] sedimentation rate Rodriguez Schaffer M.D. 05/10/2019 Z79.1 [facility] (current) use of non-steroidal Rodriguez Schaffer M.D. anti-inflammatories (Nsaid) 05/10/2019 N39.41 Urge incontinence Rodriguez Schaffer M.D. 04/28/2019 M50.022 Cervical disc disorder at C5-C6 level PORT[facility]O Rivas with myelopathy 04/18/2019 M06.4 Inflammatory polyarthropathy Rodriguez Schaffer M.D. 04/18/2019 R79.82 Elevated C-reactive protein (CRP) Rodriguez Schaffer M.D. 04/18/2019 R70.0 Elevated erythrocyte sedimentation rate Rodriguez Schaffer M.D. 04/18/2019 Z79.899 Other emt intermediate (current) drug therapy Rodriguez Schaffer M.D. 04/18/2019 M62.81 Muscle weakness (generalized) Rodriguez Schaffer M.D. 03/30/2019 M06.4 Inflammatory polyarthropathy Rodriguez Schaffer M.D. 03/30/2019 R79.82 Elevated C-reactive protein (CRP) Rodriguez Schaffer M.D. 03/30/2019 R70.0 Elevated erythrocyte sedimentation rate Rodriguez Schaffer M.D. 03/30/2019 Z79.899 Other emt intermediate (current) drug therapy Rodriguez Schaffer M.D. Plan of Treatment Future Appointment(s):08/30/2019 8:50 am - Carmencita Petit M.D. at [facility] Internal Medicine [facility]09/18/2019 11:50 am - Carmencita Petit M.D. at [facility] Internal Medicine [facility]10/09/2019 1:30 pm - PORT[facility]O Rivas at [facility]10/17/2019 10:00 am - Royal Arizmendi M.D. at [facility]08/16/2019 - Carmencita Petit M.D.Z86.73 Personal history of transient ischemic attack (TIA), and cerebral infarction without residualdeficitsNew Labs:Lupus Anticoagulant, Ordered: Cardiolipin Igg/Igm, Ordered: 08/16/19Activated Protein C Resistance, Ordered : 08/16/19Factor V Activity, Ordered: 08/16/19Factor II (Prothrombin) Genoty, Ordered: 08/16/19Comments:we discussedReferral:Ann Wilson MD, Cardiovsclr DiseaseFollow up:2 khiluG19.30 Sleep apnea, unspecifiedComments:Use CPAP Functional Status Description No Information Available Mental Status Description No Information Available Referrals Refer to Dr Reason for Referral Status Appt Date Ann Wilson MD Sent [address] [facility] [facility] [place], [place] [id number] [phone] Doug Thorne MD Please evaluate and treat cervical radiculopathy Sent [address] [place] [address] [phone] Christiano Puga MD Please evaluate and treat iron Received Partial deficiency anemia and determine cause of rising white count to see if there is a hematologic cause of anemia and leukocytosis and elevated inflammatory markers SECOND REQUEST [address] [facility] [address] [place], [place] [address] [phone] Anamika Elena MD please evaluate and treat patient with Scheduled 05/03/2019 asymmetric upper extremity weakness now extruded paracentral disc associated severe cervical neural foraminal stenosis [address] [facility], [facility] [place] [address] [phone] Royal Arizmendi MD Please evaluate patient with new onset left upper Sent extremity weakness, history of an inflammatory arthropathy [address] [place], [place] [address] [phone]
--- OUTSIDE RECORDS SUMMARY | 2019-09-21 14:28 | XMS REPORT | Continuity of Care Document ---
:1980 External Reference #:[id number] Author Name Carmencita Petit M.D. (transmitted by agent of provider Jeannette Burnham) Address [address], [place] [address] Care Team Providers Name Role Phone Carmencita Petit MD - Internal Care Team Information Nursery Nurse [phone] Medicine Problems Active Problems Provider Date Depressive [...] CPT Code Status Date Vaccine Lot # [id number] Refused 10/06/2017 Influenza Virus Vaccine, Quadrivalent, Split, [...] H/L Range Note Date Laboratory test 08/09/2019 [facility] Methylmalonic 0.11 <= 0.[address] Acid Mma nmol/mL [place], [place] [id number] [phone] Urine Culture And 08/09/2019 [facility] Urine Culture SEE [address] [place] [address] BELOW [phone] Laboratory test 08/09/2019 [facility] Vitamin B12 240 pg/mL Normal 180-[address] [place], [place] [id number] [phone] Hemoglobin A1c (Glyco HGB) 6.5 % High 4.0-5.6 4 Urinalysis Profile 08/09/2019 [facility] Urine Color Yellow [address] [place] [address] [phone] Urine Appearance Clear Urine Specific Catlin > 1.060 High 1.010-1.030 Urine pH 5.0 [...] Epithelial Cell Present Abnormal Absent Laboratory 08/09/2019 [facility] Lactic Acid 2.2 Critical 0.5- 2.0 [address] mmol/L high [place], [place] [id number] [phone] Lipid Profile 08/09/2019 [facility] Triglycerides 170 mg/dL 6 (Trig/Chol/HD [address] L) [place] [address] [phone] Cholesterol 189 mg/dL 7 HDL Cholesterol 35.8 mg/dL 8 LDL Cholesterol 119 mg/dL 9 Comp Metabolic 08/09/2019 [facility] Sodium 138 mmol/L Normal 135-[address] [place] [address] [phone] Potassium 4.1 mmol/L Normal 3.5-5.0 Chloride 104 [...] Egfr 158.8 >60 10 Laboratory test 08/09/2019 [facility] Partial 35.0 Normal 26.0 -38.[address] [place] [address] Time PTT [phone] Troponin-I (TnI) 0.00 ng/mL <0.03 11 Inr/Protime 08/09/2019 [facility] Inr 0.92 Normal 0.82-1.[address] [place], [place] [phone] [phone] CBC Auto Diff 08/09/2019 [facility] White Blood 7.7 Normal 3.5 -10.[address] Count 10^3/[place] [address] [phone] Red Blood Count 4.45 10^6/uL Normal 3.70-4.87 [...] Blood Cells % 0.1 Laboratory test 07/11/2019 [facility] Point of 122 mg/dL High 70-100 [address] [place] [address] [phone] Urinalysis 07/08/2019 [facility] Urine Color Colorless Profile [address] [place] [address] [phone] Urine Appearance Clear Urine Specific Catlin 1.002 Low 1.010-1.030 Urine pH 6.0 Normal 5-9 Urine Urobilinogen Negative Negative Urine Ketones Negative Negative Urine Protein Negative Negative Urine Leukocytes Negative Negative Urine Blood Negative Negative Urine Nitrite Negative Negative Urine Bilirubin Negative Negative Urine Glucose Negative Negative Urine Culture And 07/08/2019 [facility] Urine SEE RESULT [address] [place] [address] [phone] Laboratory test 07/05/2019 [facility] Partial 37.6 seconds Normal 26.[address] Thrombo -38. [place] [address] Time PTT [phone] Inr/Protime 07/05/2019 [facility] Inr 0.99 Normal 0.[address] -1.0 [place] [address] 9 [phone] Urine Culture And 06/29/2019 [facility] Urine SEE RESULT [address] [place] [address] [phone] Type & Screen 06/29/2019 [facility] Patient A Positive [address] [place] [address] [phone] Antibody Screen NEGATIVE Laboratory 06/29/2019 [facility] Partial 43.4 High 26.0-38.0 test finding [address] [place] [address] Time PTT [phone] Inr/Protime 06/29/2019 [facility] Inr 1.03 Normal 0.82-1.[address] [place] [address] [phone] CBC No Diff 06/29/2019 [facility] White Blood 10.5 Normal 3.5- 10.[address] Count 10^3/[place] [address] [phone] Red Blood Count 4.93 10^6/uL High 3.70-4.87 Hemoglobin 11.5 g/dL Low 12.0-16.0 Hematocrit 36 % Normal 35-47 Mean Corpuscular Volume 72 fL Low 80-97 Mean Corpuscular Hemoglobin 23 pg Low 27-31 Mean Corpuscular HGB Conc 32 g/dL Normal 31-36 Red Cell Distribution Width 17 % High 10-15 Platelet Count 228 10^3/uL Normal 150-450 Mean Platelet Volume 8.6 fL Normal 7.4-10.4 Laboratory test 06/29/2019 [facility] HCG < 0.60 [address] mIU/[place] [address] [phone] Basic Metabolic 06/29/2019 [facility] Sodium 137 mmol/L Normal 135-[address] [place] [address] [phone] Potassium 4.2 mmol/L Normal 3.5-5.0 Chloride 101 mmol/L Normal 101-111 Co2 Carbon Dioxide 29 mmol/L Normal 22-32 Anion Gap 7 mmol/L Normal 2-11 Glucose 76 mg/dL Normal 70-100 Blood Urea Nitrogen 8 mg/dL Normal 6-24 Creatinine 0.58 mg/dL Normal 0.51-0.95 BUN/Creatinine Ratio 13.8 Normal 8-20 Calcium 9.5 mg/dL Normal 8.6-10.3 Egfr Non- 115.7 >60 Egfr 140.0 >60 20 Urinalysis Profile 06/29/2019 [facility] Urine Color Yellow [address] [place] [address] [phone] Urine Appearance Cloudy Urine Specific Catlin 1.019 Normal 1.010-1.030 Urine pH 5.0 Normal [...] Cell Present Abnormal Absent CBC Auto 06/27/2019 [facility] White Blood 10.6 10^3/uL Normal 3.5-10.[address] [place] [address] [phone] Red Blood Count 4.89 10^6/uL High 3.70-4.87 [...] Blood Cells % 0.1 Comp Metabolic 06/27/2019 [facility] Sodium 137 mmol/L Normal 135-145 Panel [address] [place] [address] [phone] Potassium 4.6 mmol/L Normal 3.5-5.0 Chloride 102 [...] Egfr 140.0 >60 23 Laboratory test 06/27/2019 [facility] Hemoglobin A1c 6.4 % High 4.0-5.[address] (Glyco HGB) [place] [address] [phone] Laboratory test 05/11/2019 [facility] C Reactive 16.04 High < 8.[address] Protein mg/[place] [address] [phone] Urinalysis 05/11/2019 [facility] Urine Color Genna Profile [address] [place] [address] [phone] Urine Appearance Turbid Urine Specific [place]lin 1.015 Normal 1.010-1.030 Urine pH 5.0 Normal 5-9 Urine Urobilinogen Negative Negative Urine Ketones Negative Negative Urine Protein Negative Negative Urine Leukocytes Negative Negative Urine Blood Negative Negative Urine Nitrite Negative Negative Urine Bilirubin Negative Negative Urine Glucose Negative Negative Laboratory test 05/11/2019 [facility] Erythrocyte Sed 35 mm/Hr High 0-[address] [place] [address] [phone] Comp Metabolic 05/11/2019 [facility] Sodium 137 Normal 135- [address] mmol/[place] [address] [phone] Potassium 4.4 mmol/L Normal 3.5-5.0 Chloride 105 [...] Egfr 142.9 >60 25 CBC Auto 05/11/2019 [facility] White Blood 8.6 10^3/uL Normal 3.5-10.[address] [place] [address] [phone] Red Blood Count 4.96 10^6/uL High 3.70-4.87 [...] % 0.0 Iron & Iron Binding 04/26/2019 [facility] Iron 33 g/dL Low 50-[address] [place] [address] [phone] Unsaturated Iron Binding < 451 g/dL Total Iron Binding Capacity 466 g/dL High 250-450 Transferrin 333 mg/dL Normal 203-362 % Iron Saturation 7 % Low 15-55 Vitamin B12 04/26/2019 [facility] Vitamin B12 334 pg/mL Normal 180-914 27 [address] Folate [address] [place] [address] [phone] Folic Acid (Folate) 18.08 ng/mL >3.99 Laboratory test 04/26/2019 [facility] Ferritin 21.0 Normal 11- [address] ng/mL [place], [place] [address] [phone] Laboratory test 04/14/2019 [facility] Erythrocyte Sed 31 mm/Hr High 0-[address] [place] [address] [phone] C Reactive Protein 11.99 mg/L High <8.01 CBC Auto 04/14/2019 [facility] White Blood 13.7 10^3/uL High 3.5-10.[address] [place] [address] [phone] Red Blood Count 4.59 10^6/uL Normal 3.70-4.87 [...] Blood Cells % 0.1 Comp Metabolic 04/14/2019 [facility] Sodium 139 mmol/L Normal 135-[address] [place] [address] [phone] Potassium 4.2 mmol/L Normal 3.5-5.0 Chloride 104 [...] Egfr 107.4 >60 29 CBC Auto 04/10/2019 [facility] White Blood 11.2 10^3/uL High 3.5-10.[address] [place] [address] [phone] Red Blood Count 5.05 10^6/uL High 3.70-4.87 [...] Blood Cells % 0.0 Comp Metabolic 04/10/2019 [facility] Sodium 135 mmol/L Normal 135-[address] [place] [address] [phone] Potassium 4.4 mmol/L Normal 3.5-5.0 Chloride 101 [...] Egfr 125.0 >60 31 Laboratory test 04/10/2019 [facility] C Reactive 8.82 mg/L High <8.[address] [place] [address] [phone] ADDITIONAL INFORMATION This test was developed and its performance characteristics determined by [facility] in a manner consistent with CLIA requirements. This test has not been cleared or approved by the U.S. Food and Drug Administration. Test Performed by: [place] [address] Property Adjuster: Jus Polo M.D. Ph.D.; CLIA# [id number] 2 SEE RESULT BELOW Name: ANANYA FELICIANO : [address]: Keli Mendoza DO Acct: [id number] Unit: [id number] AGE: 38 Location: [place] [address] Re08/09/19 Dis: 08/10/19 SEX: F Status: DIS Bren SPEC: [id number] RAVEN: 08/09/19-[address] [facility] [address]: Mac Galindo MD REQ: [id number] RECD: 08/09/19-1325 STATUS: VENUS SMITH DR: Carmencita Petit MD _ SOURCE: URINE SPDESC: ORDERED: Urine Culture Procedure Result Reported Site Urine Culture Final 08/11/19- 1122 ML Organism 1 STREP GROUP B [place] Count 10-25,000 (Moderate) CFU/ML Organism 2 NORMAL GABBY [place] Count 10-25,000 (Moderate) CFU/ML Susceptibility testing of penicillins and other B-lactams approved by FDA for treatment of Streptococcus pyogenes (Group A Strep) and Streptococcus agalactiae (Group B Strep) is not necessary for clinical purposes and need not be done routinely, since as with vancomycin, resistant strains have not been recognized. (CLSI O286-E52;p.66) Positive isolates will be saved for one week. Please call the Microbiology Laboratory if further susceptibility testing is needed. * ML - Main Lab . END OF REPORT DEPARTMENT OF PATHOLOGY, [address] [place] [address] Berto Paul M.D. Director [facility] # [id number] 3 Normal Range 180 to 914 Indeterminate Range 145 to 180 Deficient Range <145 4 Therapeutic target for the treatment of diabetes mellitus patients is <7% HBA1C, and in selective patients <6.0%. Please refer to [employer] diabetic care guidelines for further information. 5 Critical Result LACT:2.2 Called to [id number] at: 12:19:09 by:[id number] Read back by:ALEXANDER WORKMAN Severe Sepsis and [...] immediately to secondary confirmatory testing. Using the [employer] DxI 800 Access Immunoassay systems, the 99th percentile upper reference limit was demonstrated to be < 0.03 ng/mL. 12 Standard intensity warfarin therapeutic range: 2.0-3.0 High intensity warfarin therapeutic range: 2.5-3.5 13 Consistent with Previous Results Reported on 07/12/19 14 Equipment Or Machinery Cleaner: [id number] 15 SEE RESULT BELOW Name: ANANYA FELICIANO : [address]: Carmencita Petit MD Acct: [id number] Unit: [id number] AGE: 38 Location: LAB Re07/08/19 SEX: F Status: REG REF SPEC: [id number] RAVEN: 07/08/[address]: Carmencita Petit MD REQ: [id number] RECD: 07/08/19 STATUS: COMP _ SOURCE: URINE SPDESC: ORDERED: Urine Culture Urine Source: Clean Catch Procedure Result Reported Site Urine Culture Final 07/09/19- 1215 ML No Growth (<1,000 CFU/mL) * ML - Main Lab . END OF REPORT DEPARTMENT OF PATHOLOGY, [address] [place] [address] Berto Paul M.D. Director [facility] # [id number] 16 Standard intensity warfarin therapeutic range: 2.0-3.0 High intensity warfarin therapeutic range: 2.5-3.5 17 SEE RESULT BELOW Name: ANANYA FELICIANO : [address]: Anamika Elena MD Acct: [id number] Unit: [id number] AGE: 38 Location: [facility] Re06/29/19 SEX: F Status: REG REF SPEC: [id number] RAVEN: 06/29/[address]: Anamika Elena MD REQ: [id number] RECD: 06/29/19 STATUS: COMP _ SOURCE: URINE SPDESC: ORDERED: Urine Culture Procedure Result Reported Site Urine Culture Final 06/30/19- 1329 ML Organism 1 STREP GROUP B [place] Count 75-100,000 (Many) CFU/ML Susceptibility testing of penicillins and other B-lactams approved by FDA for treatment of Streptococcus pyogenes (Group A Strep) and Streptococcus agalactiae (Group B Strep) is not necessary for clinical purposes and need not be done routinely, since as with vancomycin, resistant strains have not been recognized. (CLSI H303-E74;p.66) Positive isolates will be saved for one week. Please call the Microbiology Laboratory if further susceptibility testing is needed. * ML - Main Lab . END OF REPORT DEPARTMENT OF PATHOLOGY, [address] [place] [address] Berto Paul M.D. Director [facility] # [id number] 18 Standard intensity warfarin therapeutic range: 2.0-3.0 [...] in selective patients <6.0%. Please refer to [employer] diabetic care guidelines for further [...] dialysis) Procedures Date Code Description Status 07/11/2019 23823 Insertion Interbody Biomechanical Device; Each Completed Interspace 07/11/2019 09437 Insertion Interbody Biomechanical Device; Each Completed Interspace 07/11/2019 04715 Anterior Instrumentation 2-3 Vertebral Segments Completed 07/11/2019 87293 Anterior Instrumentation 2-3 Vertebral Segments Completed 07/11/2019 18725 arthrodesis,anterior interbody incl disc space Completed prep,discectomy,de 07/11/2019 13081 arthrodesis,anterior interbody incl disc space Completed prep,discectomy,de 07/11/2019 92168 Autograft For Spine Surgery ([employer]vest[employer] The Completed Graft) 07/11/2019 Allograft For Spine Surgery, Morselized Completed 06/27/2019 05403 EKG Tracing & Interpretation Completed 06/06/2019 021277752 Diabetic Retinal Eye Exam Completed 10/13/2016 43277012 Colonoscopy Completed Medical Devices Description No Information Available Encounters Type Date Location Provider Dx Diagnosis Office Visit 07/18/2019 [facility] Internal Carmencita Petit, R39.89 Other symptoms and 2:20p Medicine - Ccmob M.D. signs involving the genitourinary system L30.9 Dermatitis, unspecified Office Visit 07/13/2019 [facility] Rafaela E11.9 Type 2 diabetes 11:57a Assoc,michoacano Angulo PA-C mellitus without Hospitalists complications F32.9 Major depressive disorder, single episode, unspecified Z98.1 Arthrodesis status Office Visit 07/12/2019 [facility] F32.9 Major depressive 11:57a Assoc,pc Anna Marie, RN PRIOR AUTHORIZATION disorder, single Hospitalists episode, unspecified E11.9 Type 2 diabetes mellitus without complications Z98.1 Arthrodesis status Office Visit 07/11/2019 [facility] F32.9 Major depressive 11:57a Assoc,pc Anna Marie, RN PRIOR AUTHORIZATION disorder, single Hospitalists episode, unspecified R73.01 Impaired fasting glucose J45.909 Unspecified asthma, uncomplicated Z98.1 Arthrodesis status Office Visit 06/27/2019 8:30a [facility] Internal Cesia Z01.818 Encounter for other [...] polyarthropathy R70.0 Elevated erythrocyte sedimentation rate Z79.1 residential (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 polyarthropathy R79.82 Elevated C-reactive protein (CRP) R70.0 Elevated erythrocyte sedimentation rate Z79.899 Other long goods drier (current) drug therapy M62.81 Muscle weakness (generalized) Office Visit 03/30/2019 Rheumatology Rodrgiuez M06.4 Inflammatory 9:20a Services Of Stacey Schaffer M.D. polyarthropathy R79.82 Elevated C-reactive protein (CRP) R70.0 Elevated erythrocyte sedimentation rate Z79.899 Other alf (current) drug therapy Assessments Date Code Description [...] F32.9 Major depressive disorder, single Sepideh Thrasher, RN PRIOR AUTHORIZATION episode, unspecified 07/12/2019 E11.9 Type 2 diabetes mellitus without Sepideh Thrasher, RN PRIOR AUTHORIZATION complications 07/12/2019 Z98.1 Arthrodesis status Sepideh Thrasher, RN PRIOR AUTHORIZATION 07/11/2019 M50.022 Cervical disc disorder at C5-C6 level [facility] Rivas with myelopathy 07/11/2019 M50.022 Cervical disc disorder at C5-C6 level Anamika Elena MD with myelopathy 07/11/2019 M50.122 Cervical disc disorder at C5-C6 level [facility] Rivas with radiculopathy 07/11/2019 F32.9 Major depressive disorder, single Sepideh Thrasher, RN PRIOR AUTHORIZATION episode, unspecified 07/11/2019 M50.122 Cervical disc disorder at C5-C6 level Anamika Elena MD with radiculopathy 07/11/2019 R73.01 Impaired fasting glucose Sepideh Thrasher, RN PRIOR AUTHORIZATION 07/11/2019 J45.909 Unspecified asthma, uncomplicated Sepideh Thrasher, RN PRIOR AUTHORIZATION 07/11/2019 Z98.1 Arthrodesis status Sepideh Thrasher, RN PRIOR AUTHORIZATION 06/27/2019 Z01.818 Encounter for other preprocedural Cesia [...] sedimentation rate Rodriguez Schaffer M.D. 05/10/2019 Z79.1 residential (current) use of non-steroidal Rodriguez Schaffer M.D. anti-inflammatories (Nsaid) 05/10/2019 N39.41 Urge incontinence Rodriguez Schaffer M.D. 04/28/2019 M50.022 Cervical disc disorder at C5-C6 level [facility] Rivas with myelopathy 04/18/2019 M06.4 Inflammatory polyarthropathy Rodriguez Schaffer M.D. 04/18/2019 R79.82 Elevated C-reactive protein (CRP) Rodriguez Schaffer M.D. 04/18/2019 R70.0 Elevated erythrocyte sedimentation rate Rodriguez Schaffer M.D. 04/18/2019 Z79.899 Other long goods drier (current) drug therapy Rodriguez Schaffer M.D. 04/18/2019 M62.81 Muscle weakness (generalized) Rodriguez Schaffer M.D. 03/30/2019 M06.4 Inflammatory polyarthropathy Rodriguez Schaffer M.D. 03/30/2019 R79.82 Elevated C-reactive protein (CRP) Rodriguez Schaffer M.D. 03/30/2019 R70.0 Elevated erythrocyte sedimentation rate Rodriguez Schaffer M.D. 03/30/2019 Z79.899 Other alf (current) drug therapy Rodriguez Schaffer M.D. Plan of Treatment Future Appointment(s):08/30/2019 8:50 am - Carmencita Petit M.D. at [facility] Internal Medicine [facility]09/18/2019 11:50 am - Carmencita Petit M.D. at [facility] Internal Medicine [facility]10/09/2019 1:30 pm - PORT[facility] Rivas at [facility]10/17/2019 10:00 am - Royal Arizmendi M.D. at [place] [facility]08/16/2019 - Carmencita Petit M.D.Z86.73 Personal history of transient ischemic attack (TIA), and cerebral infarction without residualdeficitsReferral:Ann Wilson MD, Cardiovsclr DiseaseFollow up :2 wlbrfY03.30 Sleep apnea, unspecifiedComments:Use CPAP Functional Status Description No Information Available Mental Status Description No Information Available Referrals Refer to Dr Reason for Referral Status Appt Date Ann Wilson MD Sent [address] [place], [place] [id number] [phone] Doug Thorne MD Please evaluate and treat cervical radiculopathy Sent [address] [facility] [address] [place] [address] [phone] Christiano Puga MD Please evaluate and treat iron Received Partial deficiency anemia and determine cause of rising white count to see if there is a hematologic cause of anemia and leukocytosis and elevated inflammatory markers SECOND REQUEST [address] [place] [address] [phone] Anamika Elena MD please evaluate and treat patient with Scheduled 05/03/2019 asymmetric upper extremity weakness now extruded paracentral disc associated severe cervical neural foraminal stenosis [address] [facility] [place] [address] [phone] Royal Arizmendi MD Please evaluate patient with new onset left upper Sent extremity weakness, history of an inflammatory arthropathy [address] [place] [place] [address] [phone]
--- OUTSIDE RECORDS SUMMARY | 2019-09-21 14:28 | XMS REPORT | Continuity of Care Document ---
:1980 External Reference #:[id number] Author Name Carmencita Petit M.D. (transmitted by agent of provider Jeannette Burnham) Address [address], [place] [address] Care Team Providers Name Role Phone Carmencita Petit MD - Internal Care Team Information [employer] Speech Therapist [phone] Medicine Problems Active Problems Provider Date Depressive [...] CPT Code Status Date Vaccine Lot # [id number] Refused 10/06/2017 Influenza Virus Vaccine, Quadrivalent, Split, [...] Range Note Date Laboratory test 08/09/2019 [facility] Methylmalonic 0.11 <= 0.[address] Acid Mma nmol/mL [place], [place] [id number] [phone] Urine Culture And 08/09/2019 [facility] Urine Culture SEE [address] [place] [address] BELOW [phone] Laboratory test 08/09/2019 [facility] Vitamin B12 240 pg/mL Normal 180-[address] [place], [place] [id number] [phone] Hemoglobin A1c (Glyco HGB) 6.5 % High 4.0-5.6 4 Urinalysis Profile 08/09/2019 [facility] Urine Color Yellow [address] [place] [address] [phone] Urine Appearance Clear Urine Specific [place] > 1.060 High 1.010-1.030 Urine pH 5.0 [...] Cell Present Abnormal Absent Laboratory 08/09/2019 [facility] Lactic Acid 2.2 Critical 0.5- 2.0 [address] mmol/L high [place], [place] [id number] [phone] Lipid Profile 08/09/2019 [facility] Triglycerides 170 mg/dL 6 (Trig/Chol/HD [address] L) [place] [address] [phone] Cholesterol 189 mg/dL 7 HDL Cholesterol 35.8 mg/dL 8 LDL Cholesterol 119 mg/dL 9 Comp Metabolic 08/09/2019 [facility] Sodium 138 mmol/L Normal 135-[address] [place] [address] [phone] Potassium 4.1 mmol/L Normal 3.5-5.0 Chloride 104 [...] 158.8 >60 10 Laboratory test 08/09/2019 [facility] Partial 35.0 Normal 26.0 -38.[address] [place] [address] Time PTT [phone] Troponin-I (TnI) 0.00 ng/mL <0.03 11 Inr/Protime 08/09/2019 [facility] Inr 0.92 Normal 0.82-1.[address] [place], [place] [address] [phone] CBC Auto Diff 08/09/2019 [facility] White Blood 7.7 Normal 3.5 -10.[address] Count 10^3/[place] [address] [phone] Red Blood Count 4.45 10^6/uL Normal 3.70-4.87 [...] Cells % 0.1 Laboratory test 07/11/2019 [facility] Point of 122 mg/dL High 70-100 [address] [place] [address] [phone] Urinalysis 07/08/2019 [facility] Urine Color Colorless Profile [address] [place] [address] [phone] Urine Appearance Clear Urine Specific [place] 1.002 Low 1.010-1.030 Urine pH 6.0 Normal 5-9 Urine Urobilinogen Negative Negative Urine Ketones Negative Negative Urine Protein Negative Negative Urine Leukocytes Negative Negative Urine Blood Negative Negative Urine Nitrite Negative Negative Urine Bilirubin Negative Negative Urine Glucose Negative Negative Urine Culture And 07/08/2019 [facility] Urine SEE RESULT [address] [place] [address] [phone] Laboratory test 07/05/2019 [facility] Partial 37.6 seconds Normal 26.[address] Thrombo -38. [place] [address] Time PTT [phone] Inr/Protime 07/05/2019 [facility] Inr 0.99 Normal 0.[address] -1.0 [place] [address] [phone] Urine Culture And 06/29/2019 [facility] Urine SEE RESULT [address] [place] [address] [phone] Type & Screen 06/29/2019 [facility] Patient A Positive [address] [place] [place] [address] [phone] Antibody Screen NEGATIVE Laboratory 06/29/2019 [facility] Partial 43.4 High 26.0-38.0 test finding [address] [place] [address] Time PTT [phone] Inr/Protime 06/29/2019 [facility] Inr 1.03 Normal 0.82-1.[address] [place] [address] [phone] CBC No Diff 06/29/2019 [facility] White Blood 10.5 Normal 3.5- 10.[address] Count 10^3/[place] [address] [phone] Red Blood Count 4.93 10^6/uL High 3.70-4.87 [...] fL Normal 7.4-10.4 Laboratory test 06/29/2019 [facility] HCG < 0.60 [address] mIU/[place] [address] [phone] Basic Metabolic 06/29/2019 [facility] Sodium 137 mmol/L Normal 135-[address] [place] [address] [phone] Potassium 4.2 mmol/L Normal 3.5-5.0 Chloride 101 mmol/L Normal 101-111 Co2 Carbon Dioxide 29 mmol/L Normal 22-32 Anion Gap 7 mmol/L Normal 2-11 Glucose 76 mg/dL Normal 70-100 Blood Urea Nitrogen 8 mg/dL Normal 6-24 Creatinine 0.58 mg/dL Normal 0.51-0.95 BUN/Creatinine Ratio 13.8 Normal 8-20 Calcium 9.5 mg/dL Normal 8.6-10.3 Egfr Non- 115.7 >60 Egfr 140.0 >60 20 Urinalysis Profile 06/29/2019 [facility] Urine Color Yellow [address] [place] [address] [phone] Urine Appearance Cloudy Urine Specific [place] 1.019 Normal 1.010-1.030 Urine pH 5.0 Normal [...] Present Abnormal Absent CBC Auto 06/27/2019 [facility] White Blood 10.6 10^3/uL Normal 3.5-10.[address] [place] [address] [phone] Red Blood Count 4.89 10^6/uL High 3.70-4.87 [...] Cells % 0.1 Comp Metabolic 06/27/2019 [facility] Sodium 137 mmol/L Normal 135-145 Panel [address] [place] [address] [phone] Potassium 4.6 mmol/L Normal 3.5-5.0 Chloride 102 [...] 140.0 >60 23 Laboratory test 06/27/2019 [facility] Hemoglobin A1c 6.4 % High 4.0-5.[address] (Glyco HGB) [place] [address] [phone] Laboratory test 05/11/2019 [facility] C Reactive 16.04 High < 8.[address] Protein mg/[place] [address] [phone] Urinalysis 05/11/2019 [facility] Urine Color Genna Profile [address] [place] [address] [phone] Urine Appearance Turbid Urine Specific [place] 1.015 Normal 1.010-1.030 Urine pH 5.0 Normal 5-9 Urine Urobilinogen Negative Negative Urine Ketones Negative Negative Urine Protein Negative Negative Urine Leukocytes Negative Negative Urine Blood Negative Negative Urine Nitrite Negative Negative Urine Bilirubin Negative Negative Urine Glucose Negative Negative Laboratory test 05/11/2019 [facility] Erythrocyte Sed 35 mm/Hr High 0-[address] [place] [address] [phone] Comp Metabolic 05/11/2019 [facility] Sodium 137 Normal 135- [address] mmol/[place] [address] [phone] Potassium 4.4 mmol/L Normal 3.5-5.0 Chloride 105 [...] 142.9 >60 25 CBC Auto 05/11/2019 [facility] White Blood 8.6 10^3/uL Normal 3.5-10.[address] [place] [address] [phone] Red Blood Count 4.96 10^6/uL High 3.70-4.87 [...] 0.0 Iron & Iron Binding 04/26/2019 [facility] Iron 33 g/dL Low 50-[address] [place] [address] [phone] Unsaturated Iron Binding < 451 g/dL Total Iron Binding Capacity 466 g/dL High 250-450 Transferrin 333 mg/dL Normal 203-362 % Iron Saturation 7 % Low 15-55 Vitamin B12 04/26/2019 [facility] Vitamin B12 334 pg/mL Normal 180-914 [address] Folate [address] [place] [address] [phone] Folic Acid (Folate) 18.08 ng/mL >3.99 Laboratory test 04/26/2019 [facility] Ferritin 21.0 Normal 11- [address] ng/mL [place], [place] [address]87 [phone] Laboratory test 04/14/2019 [facility] Erythrocyte Sed 31 mm/Hr High 0-[address] [place] [address] [phone] C Reactive Protein 11.99 mg/L High <8.01 CBC Auto 04/14/2019 [facility] White Blood 13.7 10^3/uL High 3.5-10.[address] [place] [address] [phone] Red Blood Count 4.59 10^6/uL Normal 3.70-4.87 [...] Cells % 0.1 Comp Metabolic 04/14/2019 [facility] Sodium 139 mmol/L Normal 135-[address] [place] [address] [phone] Potassium 4.2 mmol/L Normal 3.5-5.0 Chloride 104 [...] 107.4 >60 29 CBC Auto 04/10/2019 [facility] White Blood 11.2 10^3/uL High 3.5-10.[address] [place] [address] [phone] Red Blood Count 5.05 10^6/uL High 3.70-4.87 [...] Cells % 0.0 Comp Metabolic 04/10/2019 [facility] Sodium 135 mmol/L Normal 135-[address] [place] [address] [phone] Potassium 4.4 mmol/L Normal 3.5-5.0 Chloride 101 [...] 125.0 >60 31 Laboratory test 04/10/2019 [facility] C Reactive 8.82 mg/L High <8.[address] [place] [address] [phone] ADDITIONAL INFORMATION This test was developed and its performance characteristics determined by [facility] in a manner consistent with CLIA requirements. This test has not been cleared or approved by the U.S. Food and Drug Administration. Test Performed by: [place] [address] Grain Broker: Jus Polo M.D. Ph.D.; CLIA# [id number] 2 SEE RESULT BELOW Name: ANANYA FELICIANO : [address]: Keli Mendoza DO Acct: [id number] Unit: [id number] AGE: 38 Location: [place] [address] Re08/09/19 Dis: 08/10/19 SEX: F Status: DIS Bren SPEC: [id number] RAVEN: 08/09/19-1309 [facility] [address]: Mac Galindo MD REQ: [id number] RECD: 08/09/19-1325 STATUS: VENUS SMITH DR: Carmencita Petit MD _ SOURCE: URINE SPDESC: ORDERED: Urine Culture Procedure Result Reported Site Urine Culture Final 08/11/19- 1122 ML Organism 1 STREP GROUP B [place] Count 10-25,000 (Moderate) CFU/ML Organism 2 NORMAL GABBY [place] Count 10-25,000 (Moderate) CFU/ML Susceptibility testing of penicillins and other B-lactams approved by FDA for treatment of Streptococcus pyogenes (Group A Strep) and Streptococcus agalactiae (Group B Strep) is not necessary for clinical purposes and need not be done routinely, since as with vancomycin, resistant strains have not been recognized. (CLSI Q499-P73;p.66) Positive isolates will be saved for one week. Please call the Microbiology Laboratory if further susceptibility testing is needed. * ML - Main Lab . END OF REPORT DEPARTMENT OF PATHOLOGY, [address] [place] [address] Berto Paul M.D. Director [facility] # [id number] 3 Normal Range 180 to 914 Indeterminate Range 145 to 180 Deficient Range <145 4 Therapeutic target for the treatment of diabetes mellitus patients is <7% HBA1C, and in selective patients <6.0%. Please refer to [place] [employer] diabetic care guidelines for further information. 5 Critical Result LACT:2.2 Called to [id number] at: 12:19:09 by:[email or web address] Read back by:ALEXANDER WORKMAN Severe Sepsis and [...] immediately to secondary confirmatory testing. Using the [employer] DxI 800 Access Immunoassay systems, the 99th percentile upper reference limit was demonstrated to be < 0.03 ng/mL. 12 Standard intensity warfarin therapeutic range: 2.0-3.0 High intensity warfarin therapeutic range: 2.5-3.5 13 Consistent with Previous Results Reported on 07/12/19 14 Extension Division Director: [id number] 15 SEE RESULT BELOW Name: ANANYA FELICIANO : [address]: Carmencita Petit MD Acct: [id number] Unit: [id number] AGE: 38 Location: LAB Re07/08/19 SEX: F Status: REG REF SPEC: [id number] RAVEN: 07/08/[address]: Carmencita Petit MD REQ: [id number] RECD: 07/08/19 STATUS: COMP _ SOURCE: URINE SPDESC: ORDERED: Urine Culture Urine Source: Clean Catch Procedure Result Reported Site Urine Culture Final 07/09/19- 1215 ML No Growth (<1,000 CFU/mL) * ML - Main Lab . END OF REPORT DEPARTMENT OF PATHOLOGY, [address] [place] [address] Berto Paul M.D. Director [facility] # [id number] 16 Standard intensity warfarin therapeutic range: 2.0-3.0 High intensity warfarin therapeutic range: 2.5-3.5 17 SEE RESULT BELOW Name: ANANYA FELICIANO : [address]: Anamika Elena MD Acct: [id number] Unit: [id number] AGE: 38 Location: [facility] Re06/29/19 SEX: F Status: REG REF SPEC: [id number] RAVEN: 06/29/[address]: Anamika Elena MD REQ: [id number] RECD: 06/29/19 STATUS: COMP _ SOURCE: URINE SPDESC: ORDERED: Urine Culture Procedure Result Reported Site Urine Culture Final 06/30/19- 1329 ML Organism 1 STREP GROUP B [place] Count 75-100,000 (Many) CFU/ML Susceptibility testing of penicillins and other B-lactams approved by FDA for treatment of Streptococcus pyogenes (Group A Strep) and Streptococcus agalactiae (Group B Strep) is not necessary for clinical purposes and need not be done routinely, since as with vancomycin, resistant strains have not been recognized. (CLSI J700-A42;p.66) Positive isolates will be saved for one week. Please call the Microbiology Laboratory if further susceptibility testing is needed. * ML - Main Lab . END OF REPORT DEPARTMENT OF PATHOLOGY, [address] [place] [address] Berto Paul M.D. Director [facility] # [id number] 18 Standard intensity warfarin therapeutic range: 2.0-3.0 [...] in selective patients <6.0%. Please refer to [place] [employer] diabetic care guidelines for further [...] dialysis) Procedures Date Code Description Status 07/11/2019 70075 Insertion Interbody Biomechanical Device; Each Completed Interspace 07/11/2019 72136 Insertion Interbody Biomechanical Device; Each Completed Interspace 07/11/2019 07895 Anterior Instrumentation 2-3 Vertebral Segments Completed 07/11/2019 30149 Anterior Instrumentation 2-3 Vertebral Segments Completed 07/11/2019 78793 arthrodesis,anterior interbody incl disc space Completed prep,discectomy,de 07/11/2019 90418 arthrodesis,anterior interbody incl disc space Completed prep,discectomy,de 07/11/2019 41164 Autograft For Spine Surgery ([employer]vesting The Completed Graft) 07/11/2019 Allograft For Spine Surgery, Morselized Completed 06/27/2019 10078 EKG Tracing & Interpretation Completed 06/06/2019 185182425 Diabetic Retinal Eye Exam Completed 10/13/2016 87087803 Colonoscopy Completed Medical Devices Description No Information Available Encounters Type Date Location Provider Dx Diagnosis Office Visit 07/18/2019 [facility] Carmencita Petit, R39.89 Other symptoms and 2:20p Medicine - Ccmob M.D. signs involving the genitourinary system L30.9 Dermatitis, unspecified Office Visit 07/13/2019 [facility] Rafaela E11.9 Type 2 diabetes 11:57a Assoc,michoacano Angulo PA-C mellitus without Hospitalists complications F32.9 Major depressive disorder, single episode, unspecified Z98.1 Arthrodesis status Office Visit 07/12/2019 [facility] F32.9 Major depressive 11:57a Assoc,pc Anna Marie, CUFF TURNER MACHINE OPERATOR disorder, single Hospitalists episode, unspecified E11.9 Type 2 diabetes mellitus without complications Z98.1 Arthrodesis status Office Visit 07/11/2019 [facility] F32.9 Major depressive 11:57a Assoc,pc Anna Marie, CUFF TURNER MACHINE OPERATOR disorder, single Hospitalists episode, unspecified R73.01 Impaired fasting glucose J45.909 Unspecified asthma, uncomplicated Z98.1 Arthrodesis status Office Visit 06/27/2019 8:30a [facility] Internal Cesia Z01.818 Encounter for other Medicine [...] polyarthropathy R70.0 Elevated erythrocyte sedimentation rate Z79.1 penitentiary (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 computer operator (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 polyarthropathy R79.82 Elevated C-reactive protein (CRP) R70.0 Elevated erythrocyte sedimentation rate Z79.899 Other assisted (current) drug therapy Assessments Date Code Description [...] PA-C 07/12/2019 F32.9 Major depressive disorder, single Seipdeh Thrasher, CUFF TURNER MACHINE OPERATOR episode, unspecified 07/12/2019 E11.9 Type 2 diabetes mellitus without Sepideh Thrasher, CUFF TURNER MACHINE OPERATOR complications 07/12/2019 Z98.1 Arthrodesis status Sepideh Thrasher, CUFF TURNER MACHINE OPERATOR 07/11/2019 M50.022 Cervical disc disorder at C5-C6 level [facility] Rivas with myelopathy 07/11/2019 M50.022 Cervical disc disorder at C5-C6 level Anamika Elena MD with myelopathy 07/11/2019 M50.122 Cervical disc disorder at C5-C6 level [facility] Rivas with radiculopathy 07/11/2019 F32.9 Major depressive disorder, single Sepideh Thrasher, CUFF TURNER MACHINE OPERATOR episode, unspecified 07/11/2019 M50.122 Cervical disc disorder at C5-C6 level Anamika Elena MD with radiculopathy 07/11/2019 R73.01 Impaired fasting glucose Sepideh Thrasher, CUFF TURNER MACHINE OPERATOR 07/11/2019 J45.909 Unspecified asthma, uncomplicated Sepideh Thrasher, CUFF TURNER MACHINE OPERATOR 07/11/2019 Z98.1 Arthrodesis status Sepideh Thrasher, CUFF TURNER MACHINE OPERATOR 06/27/2019 Z01.818 Encounter for other preprocedural [...] sedimentation rate Rodriguez Schaffer M.D. 05/10/2019 Z79.1 penitentiary (current) use of non-steroidal Rodriguez Schaffer M.D. anti-inflammatories (Nsaid) 05/10/2019 N39.41 Urge incontinence Rodriguez Schaffer M.D. 04/28/2019 M50.022 Cervical disc disorder at C5-C6 level [facility] Rivas with myelopathy 04/18/2019 M06.4 Inflammatory polyarthropathy Rodriguez Schaffer M.D. 04/18/2019 R79.82 Elevated C-reactive protein (CRP) Rodriguez Schaffer M.D. 04/18/2019 R70.0 Elevated erythrocyte sedimentation rate Rodriguez Schaffer M.D. 04/18/2019 Z79.899 Other terminal computer operator (current) drug therapy Rodriguez Schaffer M.D. 04/18/2019 M62.81 Muscle weakness (generalized) Rodriguez Schaffer M.D. 03/30/2019 M06.4 Inflammatory polyarthropathy Rodriguez Schaffer M.D. 03/30/2019 R79.82 Elevated C-reactive protein (CRP) Rodriguez Schaffer M.D. 03/30/2019 R70.0 Elevated erythrocyte sedimentation rate Rodriguez Schaffer M.D. 03/30/2019 Z79.899 Other assisted (current) drug therapy Rodriguez Schaffer M.D. Plan of Treatment Future Appointment(s):08/30/2019 8:50 am - Carmencita Petit M.D. at [facility]09/18/2019 11:50 am - Carmencita Petit M.D. at [facility]10/09/2019 1:30 pm - [facility] Rivas at [facility]10/17/2019 10:00 am - Royal Arizmendi M.D. at [facility]08/16/2019 - Carmencita Petit M.D.Z86.73 Personal history of transient ischemic attack (TIA), and cerebral infarction without residualdeficitsReferral:Ann Wilson MD, Cardiovsclr DiseaseFollow up :2 dqbgcT99.30 Sleep apnea, unspecifiedComments:Use CPAP Functional Status Description No Information Available Mental Status Description No Information Available Referrals Refer to Dr Reason for Referral Status Appt Date Ann Wilson MD Created [address] [place], [place] [id number] [phone] Doug Thorne MD Please evaluate and treat cervical radiculopathy Sent [address] [facility] [address] [place] [address] [phone] Christiano Puga MD Please evaluate and treat iron Received Partial deficiency anemia and determine cause of rising white count to see if there is a hematologic cause of anemia and leukocytosis and elevated inflammatory markers SECOND REQUEST [address] [place] [address] [phone] Anamika Elena MD please evaluate and treat patient with Scheduled 05/03/2019 asymmetric upper extremity weakness now extruded paracentral disc associated severe cervical neural foraminal stenosis [address] [facility], [place] [address] [phone] Royal Arizmendi MD Please evaluate patient with new onset left upper Sent extremity weakness, history of an inflammatory arthropathy [address] [place] [address] [place] [address] [phone]
[2019-09-21 14:34] LABS: ABS Basophils 0.1 10^3/ul (0-0.2); ABS Eosinophils 0.2 10^3/ul (0-0.6); ABS Lymphocytes 2.1 10^3/ul (1.0-4.8); ABS Monocytes 0.4 10^3/ul (0-0.8); ABS Neutrophils 6.9 10^3/ul (1.5-7.7); Eosinophil % 2.1 %; Hematocrit 33 % (35-47); Hemoglobin 10.6 g/dL (12.0-16.0); INR 0.98 (0.82-1.09); Mean Corpuscular HGB Conc 33 g/dL (31-36); Mean Corpuscular Hemoglobin 23 pg (27-31); Mean Corpuscular Volume 70 fL (80-97); Mean Platelet Volume 8.6 fL (7.4-10.4); Nucleated Red Blood Cells % 0.1; Platelet Count 228 10^3/uL (150-450); Red Blood Count 4.69 10^6 /uL (3.70-4.87); Red Cell Distribution Width 17 % (10-15); White Blood Count 9.8 10^3/uL (3.5-10.8)
[2019-09-21 14:46] LABS: ALT 50 U/L (7-52); AST 37 U/L (13-39); Albumin 4.1 g/dL (3.2-5.2); Albumin/Globulin Ratio 1.5 (1-3); Alkaline Phosphatase 64 U/L (34-104); Anion Gap 7 mmol/L (2-11); BUN/Creatinine Ratio 13.9 (8-20); Blood Urea Nitrogen 10 mg/dL (6-24); CO2 Carbon Dioxide 27 mmol/L (22-32); Chloride 102 mmol/L (101-111); Cholesterol 189 mg/dL; EGFR African American 108.6 (>60); EGFR Non-African American 89.7 (>60); Globulin 2.8 g/dL (2-4); Glucose 101 mg/dL (70-100); LDL Cholesterol 110 mg/dL; Potassium 3.8 mmol/L (3.5-5.0); Sodium 136 mmol/L (135-145); Total Protein 6.9 g/dL (6.4-8.9); Triglycerides 221 mg/dL
[2019-09-21 14:50] LABS: Alcohol < 10 mg/dL (<10)
[2019-09-21 14:51] LABS: HCG Pregnancy < 0.60 mIU/mL
[2019-09-21 15:18] LABS: Urine Appearance Clear; Urine Bilirubin Negative (Negative); Urine Blood Negative (Negative); Urine Color Yellow; Urine Glucose Negative (Negative); Urine Ketones Negative (Negative); Urine Nitrite Negative (Negative); Urine Protein Negative (Negative); Urine Specific Gravity 1.021 (1.010-1.030); Urine Urobilinogen Negative (Negative)
[2019-09-21 15:21] LABS: Urine Bacteria Absent (Absent); Urine Red Blood Cell 1+(3-5/hpf) (Absent); Urine Squamous Epithelial Cell Present (Absent); Urine White Blood Cell Trace(0-5/hpf) (Absent)
[2019-09-21 15:46] LABS: Urine Benzodiazepine Screen None Detected (None Detect); Urine Opiates Screen None Detected (None Detect)
[2019-09-21 17:09] VITALS: BP 129/76
--- NOTE | 2019-09-21 20:53 | CONS ---
NEUROLOGY CONSULTATION NOTE: DATE OF CONSULT: 09/21/19 CONSULTING PROVIDER: Dr. Oscar. REASON FOR CONSULT: Right-sided numbness. CHIEF COMPLAINT: "I had right-sided numbness that resolved." HISTORY OF PRESENT ILLNESS: The patient is a 39-year-old right-handed female who was recently hospitalized for presumed TIA causing left-sided face and arm numbness. The patient has been taking aspirin regularly. She stopped taking her statin therapy about a week ago. She was also found to have low normal vitamin B12 level, but stopped taking vitamin B12 supplements about 2 weeks ago. The patient stated that her right arm became weak and she was dropping things yesterday. She was holding her niece yesterday when she developed transient numbness and tingling in the face right side of the face. The patient stated that she has been having trouble with these constellation neurological symptoms for months now. These symptoms consist mostly of intermittent slurred speech, visual obscuration, numbness, fatigue, memory loss , and she is worried that she has multiple sclerosis. She was hospitalized in July. I took care of her at that time and ordered an MRI of the brain, CTA head and neck, transthoracic echo and all resulted in no pathological cause for her constellation of symptoms. She had a TTE at that time with bubble study that was negative. She was sent home at that time with aspirin and statin therapy. She was also encouraged to take vitamin B12 supplements. Current NIHSS : 0 PAST MEDICAL HISTORY: DMII, chronic iron deficiecy from heavy menstration, anxiety, depression, hemorrhoids, TIA; cervical spondylosis, status post ACDF by Dr. Elena, obesity. FAMILY HISTORY: There is no family history of stroke or seizures. SOCIAL HISTORY: She denied any tobacco or alcohol use. REVIEW OF SYSTEMS: A 14-point review of systems was obtained and otherwise negative except for what was mentioned in the HPI. PHYSICAL EXAM: Vitals: Temperature of 97.9, pulse of 77, respiratory rate of 18, oxygen saturation of 97%, blood pressure of 129/76. General: Well- nourished, well- developed female, in no acute distress. Head: Atraumatic, normocephalic without any obvious abnormality. Neck is supple and symmetrical with no carotid bruit. Cardiovascular: Regular rate and rhythm with normal S1, S2. Pulmonary: Clear to auscultation bilaterally with no wheezing or rhonchi. Extremities: Normal range of motion with no cyanosis or edema. Psych: Normal affect and mood. She is slightly anxious. Neurological Examination: Alert and oriented to person, place, time, and general circumstances. Speech and language including expression, repetition, and comprehension were assessed and found to be normal. Pupils are equal, round, and reactive to light. Extraocular muscles are intact. There is no facial asymmetry. Tongue is symmetrical and midline with no atrophy or fasciculation. Motor Examination: 5 /5 strength in the upper and lower extremities bilaterally. Normal tone and bulk throughout. Reflexes 2+ throughout. Sensory intact to light touch throughout. Coordination: Normal [id number] and heel-to- palacio testing. Gait: Normal stance. No ataxia. DIAGNOSTIC STUDIES/LAB DATA: Imaging: CT head showed no evidence of acute intracranial abnormality. She is anemic and follows up with Rheumatology for possible underlying unknown rheumatological disease. IMPRESSION AND RECOMMENDATIONS: Ms. Ananya Guadarrama is a 39-year-old female with constellation of nonspecific neurological problems, who came in in July with transient ischemic attack like symptoms that resolved. She now presents with transient right-sided hemiparesthesias, intermittent chronic slurred speech , and visual disturbance. Her symptoms completely resolved. NIH Stroke Scale 0. The patient stopped taking statin therapy about a few weeks ago. She still takes aspirin 81 mg daily. Overall, based on her normal neurological examination, I do not suspect the patient had a stroke. However, we cannot entirely rule out a transient ischemic attack, but this is also less likely. She is currently seeing a financial assistant for what she reports "undiagnosed rheumatological condition." She has anemia from heavy menstruation. Other differential diagnosis include cervical spondylosis. Her last MRI brain was limited as she had a cervical collar on and was unable to obtain a complete study. She will be seeing Dr. Arizmendi next month. I do not recommend any immediate workup at this time as she has had a stroke workup 2 months ago. I do recommend increasing her aspirin to 162 mg. I encouraged her to resume her atorvastatin therapy. She should also resume vitamin B12 supplementation. She should also consider obtaining an MRI of the cervical spine and repeating the MRI of the brain with contrast to make sure demyelinating disease is not missed. The patient verbalized understanding and agreed to be discharged from the ED. [id number]/[facility] #: [id number] [facility]ITALKathy
== END 2019-09-21 17:08 | disposition home or self-care (01) ==
LOC: ED 13:28
DX: R20.2 Paresthesia of skin (principal); R73.03 Prediabetes; D64.9 Anemia, unspecified; I34.1 Nonrheumatic mitral (valve) prolapse; J45.909 Unspecified asthma, uncomplicated; K21.9 Gastro-esophageal reflux disease without esophagitis; F41.9 Anxiety disorder, unspecified; F32.9 Major depressive disorder, single episode, unspecified; Z87.891 Personal history of nicotine dependence; Z79.82 Long term (current) use of aspirin; Z79.899 Other long term (current) drug therapy; Z88.1 Allergy status to other antibiotic agents; Z88.2 Allergy status to sulfonamides; Z88.5 Allergy status to narcotic agent; Z87.442 Personal history of urinary calculi
CPT/HCPCS: 36415; 70450; 80053; 80061; 80307; 80320; 81003; 81015; 82607; 83605; 84484; 84702; 85025; 85610; 86850; 86900; 86901; 87077; 87086; 93005; 99283; G0480

== ENCOUNTER 2019-10-30 10:52 | Emergency (ER) | payer BC ==
--- OUTSIDE RECORDS SUMMARY | 2019-10-30 10:58 | XMS REPORT | Continuity of Care Document ---
:1980 External Reference #:[id number] Author Name Royal Arizmendi M.D. 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 Glucophage Take 1 tab by 90tabs Cesia Alvarez, 04/10/2019 500mg mouth once daily MD Tablets Meloxicam take one tab 30tabs M06.4 Rodriguez Schaffer, 11/03/2018 7.5mg daily as needed M.D. Tablets for pain, avoid other nsaids Albuterol Sulfate four times a day 90ml J45.901 Carmencita Petit, 09/26/2018 as needed M.D. (2.5mg/3ML) 0.083% Nebulizer Atorvastatin Calcium Take 1 Tablet By 90tabs Cesia Alvarez, Mouth Daily AT 40mg Tablets 5PM Aspirin Low Dose Chew And Swallow Unknown 81mg 1 Tablet By Mouth Chewtabs Twice Daily History Medications Amoxicillin 1 tab three 15tabs Carmencita Petit, 07/05/2019 - 500mg times a day x 5 M.D. 07/10/2019 Tablets days only MJ Collar When out of bed G99.2 Vassilios 06/09/2019 - until surgery MD Kassy 10/16/2019 Gabapentin Take 1 Capsule 30caps Rodriguez Schaffer, 05/26/2019 - 300mg By Mouth AT M.D. 06/27/2019 Capsules Night For 1 Week, Then Take 1 Capsule Twice Daily Ongoing Iron (Ferrous take one 60tabs Rodriguez Schaffer, 04/29/2019 - Sulfate) capsule/tablet M.D. 07/18/2019 142(45Fe) mg daily by mouth Tablets ER Gabapentin take 1 capsule 30caps Rodriguez Schaffer, 04/18/2019 - 100mg by mouth at M.D. 05/10/2019 Capsules night for 1 week then 1 by mouth twice daily ongoing Immunizations CPT Code Status Date Vaccine Lot # [id number] Refused 10/06/2017 Influenza Virus Vaccine, Quadrivalent, Split, Preservative Free Vital Signs Date Vital Result Comment 10/17/2019 10:14am Height 64 inches 5'4" Weight 260.00 lb Heart Rate 88 /min BP Systolic 130 mmHg BP Diastolic 78 mmHg BMI (Body Mass Index) 44.6 kg/m2 10/04/2019 9:50am Height 64 inches 5'4" Weight 250.00 lb Heart Rate 80 /min BP Systolic 118 mmHg BP Diastolic 74 mmHg O2 % BldC Oximetry 98 % BMI (Body Mass Index) 42.9 kg/m2 Results Test Acquired Date Facility Test Result H/L Range Note Urine Culture And 09/21/2019 [facility] Urine SEE RESULT 1 [place]ensit[place] [address] [phone] Laboratory test 09/21/2019 [facility] Vitamin B12 366 pg/mL Normal 180-914 2 [place] [address] [phone] Urinalysis Profile 09/21/2019 [facility] [place] [address] [phone] Urine Appearance Clear Urine Specific [place] 1.021 Normal 1.010-1.030 Urine pH 5.0 Normal 5-9 Urine Urobilinogen Negative Negative Urine Ketones Negative Negative Urine Protein Negative Negative Urine Leukocytes Trace Abnormal Negative Urine Blood Negative Negative * * Abnormal Negative 3 Urine Nitrite Negative Negative Urine Bilirubin Negative Negative Urine Glucose Negative Negative Urine White Blood Cell Trace(0-5/hpf) Absent Urine Red Blood Cell 1+(3-5/hpf) Abnormal Absent Urine Bacteria Absent Absent Urine Squamous Epithelial Cell Present Abnormal Absent Type & Screen 09/21/2019 [facility] Patient Blood Type A Positive [place], [place] [id number] [phone] Antibody Screen NEGATIVE Urine Drug 09/21/2019 [facility] Urine None Detected None Detect SCR ED & [address] [facility] [place] [address] Screen [phone] Urine Barbiturates Screen None Detected None Detect Urine Benzodiazepine Screen None Detected None Detect Urine Cannabinoids Screen None Detected None Detect Urine Cocaine Screen None Detected None Detect Urine Opiates Screen None Detected None Detect Urine Phencyclidine Screen None Detected None Detect 4 Laboratory test 09/21/2019 [facility] Lactic Acid 1.8 mmol/L Normal 0.5-2.0 5 finding [place], [place] [id number] [phone] Inr/Protime 09/21/2019 [facility] Inr 0.98 Normal 0.82-1.[address] [place] [address] [phone] Laboratory test 09/21/2019 [facility] Troponin-I 0.00 ng/mL < 0.[address] (TnI) [place] [address] [phone] Alcohol < 10 mg/dL Normal <10 HCG < 0.60 mIU/mL 8 Lipid Profile 09/21/2019 [facility] Triglycerides 221 mg/dL 9 (Trig/Chol/HDL) [address] [place] [address] [phone] Cholesterol 189 mg/dL 10 HDL Cholesterol 35.0 mg/dL 11 LDL Cholesterol 110 mg/dL 12 CBC Auto 09/21/2019 [facility] White Blood 9.8 10^3/uL Normal 3.5-10.8 Diff [address] [place] [address] [phone] Red Blood Count 4.69 10^6/uL Normal 3.70-4.87 Hemoglobin 10.6 g/dL Low 12.0-16.0 Hematocrit 33 % Low 35-47 Mean Corpuscular Volume 70 fL Low 80-97 Mean Corpuscular Hemoglobin 23 pg Low 27-31 Mean Corpuscular HGB Conc 33 g/dL Normal 31-36 Red Cell Distribution Width 17 % High 10-15 Platelet Count 228 10^3/uL Normal 150-450 Mean Platelet Volume 8.6 fL Normal 7.4-10.4 Abs Neutrophils 6.9 10^3/uL Normal 1.5-7.7 Abs Lymphocytes 2.1 10^3/uL Normal 1.0-4.8 Abs Monocytes 0.4 10^3/uL Normal 0-0.8 Abs Eosinophils 0.2 10^3/uL Normal 0-0.6 Abs Basophils 0.1 10^3/uL Normal 0-0.2 Abs Nucleated RBC 0.0 10^3/uL Granulocyte % 70.5 % Lymphocyte % 22.0 % Monocyte % 4.4 % Eosinophil % 2.1 % Basophil % 1.0 % Nucleated Red Blood Cells % 0.1 Comp Metabolic 09/21/2019 [facility] Sodium 136 mmol/L Normal 135-145 Panel 101 [place] [address] [phone] Potassium 3.8 mmol/L Normal 3.5-5.0 Chloride 102 mmol/L Normal 101-111 Co2 Carbon Dioxide 27 mmol/L Normal 22-32 Anion Gap 7 mmol/L Normal 2-11 Glucose 101 mg/dL High 70-100 Blood Urea Nitrogen 10 mg/dL Normal 6-24 Creatinine 0.72 mg/dL Normal 0.51-0.95 BUN/Creatinine Ratio 13.9 Normal 8-20 Calcium 9.0 mg/dL Normal 8.6-10.3 Total Protein 6.9 g/dL Normal 6.4-8.9 Albumin 4.1 g/dL Normal 3.2-5.2 Globulin 2.8 g/dL Normal 2-4 Albumin/Globulin Ratio 1.5 Normal 1-3 Total Bilirubin 0.70 mg/dL Normal 0.2-1.0 Alkaline Phosphatase 64 U/L Normal 34-104 Alt 50 U/L Normal 7-52 Ast 37 U/L Normal 13-39 Egfr Non- 89.7 >60 Egfr 108.6 >60 13 Factor II 08/17/2019 [facility] Prothrombin Negative Negative (Prothrombin) [address] [place] [address] [phone] Prothrombin [id number] Interp See Comment 14 Prothrombin Mutation Review By See Comment 15 Lupus 08/17/2019 [facility] Lupus See Comment [address] [place] [address] Inter [phone] Prothrombin Time(Lac) 11.7 sec 9.4 - 12.5 Lac Inr 1.1 0.9-1.1 17 Lac Aptt 32 sec 25 - 37 DRVVT Screen Ratio 0.99 ratio <1.20 18 Cardiolipin 08/17/2019 [facility] Phospholipid Ab < 9.4 MPL 19 Igg/Igm [address] IgM, [place] [address] [phone] Phospholipid Ab IgG < 9.4 GPL 20 Activated Protein C 08/17/2019 [facility] Act Protein C 2.7 > or=2.[address] [place] [address] [phone] Act Protein C Resist Interp See Comment 21 Laboratory test 08/17/2019 [facility] Factor V 87 % 70 - [address] Activity 165 [place] [address] [phone] Laboratory test 08/09/2019 [facility] Partial 35.0 Normal 26.0 -[address] Thrombo Time seconds .0 [place] [address] PTT [phone] Troponin-I (TnI) 0.00 ng/mL <0.03 23 Comp Metabolic 08/09/2019 [facility] Sodium 138 mmol/L Normal 135-145 Panel 101 [place] [address] [phone] Potassium 4.1 mmol/L Normal 3.5-5.0 Chloride 104 [...] Egfr Non- 131.3 >60 Egfr 158.8 >60 24 Lipid Profile 08/09/2019 [facility] Triglycerides 170 mg/dL 25 (Trig/Chol/HDL) [address] [place] [address] [phone] Cholesterol 189 mg/dL 26 HDL Cholesterol 35.8 mg/dL 27 LDL Cholesterol 119 mg/dL 28 Laboratory 08/09/2019 [facility] Lactic 2.2 mmol/L Critical 0.5-2.0 [address] [place] [address] [phone] Urinalysis 08/09/2019 [facility] Urine Yellow Profile [address] [place] [address] [phone] Urine Appearance Clear Urine Specific [place] > 1.060 High 1.010-1.030 Urine pH 5.0 [...] Epithelial Cell Present Abnormal Absent Laboratory test 08/09/2019 [facility] Vitamin B12 240 pg/mL Normal 180-914 [address] [place] [address] [phone] Hemoglobin A1c (Glyco HGB) 6.5 % High 4.0-5.6 31 Urine Culture And 08/09/2019 [facility] Urine Culture SEE [address] [place] [address] BELOW [phone] Laboratory test 08/09/2019 [facility] Methylmalonic 0.11 <=0 [address] Acid Mma nmol/mL .40 [place] [address] [phone] Inr/Protime 08/09/2019 [facility] Inr 0.92 Normal 0.[address] 2-1 [place] [address] .09 [phone] CBC Auto Diff 08/09/2019 [facility] White Blood Count 7.7 Normal 3.[address] 10^3/uL -10 [place] [address] .8 [phone] Red Blood Count 4.45 10^6/uL Normal 3.70-4.87 Hemoglobin 10.5 g/dL Low 12.0-16.0 Hematocrit 32 % Low 35-47 Mean Corpuscular Volume 72 fL Low 80-97 35 Mean Corpuscular Hemoglobin 24 pg Low 27-31 [...] Blood Cells % 0.1 Laboratory test 07/11/2019 [facility] Point of 122 mg/dL High 70-100 [address] Care Glucose [place], [place] [address] [phone] Urinalysis 07/08/2019 [facility] Urine Color Colorless Profile [address] [place] [address] [phone] Urine Appearance Clear Urine Specific [place] 1.002 Low 1.010-1.030 Urine pH 6.0 Normal 5-9 Urine Urobilinogen Negative Negative Urine Ketones Negative Negative Urine Protein Negative Negative Urine Leukocytes Negative Negative Urine Blood Negative Negative Urine Nitrite Negative Negative Urine Bilirubin Negative Negative Urine Glucose Negative Negative Urine Culture And 07/08/2019 [facility] Urine Culture SEE RESULT [address] [place] [address] [phone] Laboratory test 07/05/2019 [facility] Partial 37.6 Normal 26.[address] Thrombo Time seconds -38. [place] [address] PTT 0 [phone] Inr/Protime 07/05/2019 [facility] Inr 0.99 Normal 0.[address] -1.0 [place] [address] 9 [phone] Laboratory test 06/29/2019 [facility] HCG < 0.60 [address] mIU/[place] [address] [phone] CBC No Diff 06/29/2019 [facility] White Blood 10.5 Normal 3.5 - [address] Count 10^3/uL 10.8 [place] [address] [phone] Red Blood Count 4.93 10^6/uL High 3.70-4.87 Hemoglobin 11.5 g/dL Low 12.0-16.0 Hematocrit 36 % Normal 35-47 Mean Corpuscular Volume 72 fL Low 80-97 Mean Corpuscular Hemoglobin 23 pg Low 27-31 Mean Corpuscular HGB Conc 32 g/dL Normal 31-36 Red Cell Distribution Width 17 % High 10-15 Platelet Count 228 10^3/uL Normal 150-450 Mean Platelet Volume 8.6 fL Normal 7.4-10.4 Inr/Protime 06/29/2019 [facility] Inr 1.03 Normal 0.82-1.[address] [place] [address] [phone] Laboratory test 06/29/2019 [facility] Partial 43.4 High 26.0- 38.[address] [place] [address] Time PTT [phone] Type & Screen 06/29/2019 [facility] Patient A Positive [address] [place] [address] [phone] Antibody Screen NEGATIVE Urine Culture And 06/29/2019 [facility] Urine Culture SEE RESULT [address] [place] [address] [phone] Urinalysis Profile 06/29/2019 [facility] Urine Color Yellow [address] [place] [address] [phone] Urine Appearance Cloudy Urine Specific [place] 1.019 Normal 1.010-1.030 Urine pH 5.0 Normal 5-9 Urine Urobilinogen Negative Negative Urine Ketones Negative Negative Urine Protein Negative Negative Urine Leukocytes 1+ Abnormal Negative Urine Blood Negative Negative * * Abnormal Negative 42 Urine Nitrite Negative Negative Urine Bilirubin Negative Negative Urine Glucose Negative Negative Urine White Blood Cell Trace(0-5/hpf) Absent Urine Red Blood Cell 2+(6-10/hpf) Abnormal Absent Urine Bacteria Absent Absent Urine Squamous Epithelial Cell Present Abnormal Absent Basic Metabolic 06/29/2019 [facility] Sodium 137 mmol/L Normal 135-[address] [place] [address] [phone] Potassium 4.2 mmol/L Normal 3.5-5.0 Chloride 101 mmol/L Normal 101-111 Co2 Carbon Dioxide 29 mmol/L Normal 22-32 Anion Gap 7 mmol/L Normal 2-11 Glucose 76 mg/dL Normal 70-100 Blood Urea Nitrogen 8 mg/dL Normal 6-24 Creatinine 0.58 mg/dL Normal 0.51-0.95 BUN/Creatinine Ratio 13.8 Normal 8-20 Calcium 9.5 mg/dL Normal 8.6-10.3 Egfr Non- 115.7 >60 Egfr 140.0 >60 43 Laboratory test 06/27/2019 [facility] Hemoglobin A1c 6.4 % High 4.0-5.6 [address] (Glyco HGB) [place] [address] [phone] Comp Metabolic 06/27/2019 [facility] Sodium 137 Normal 135- [address] mmol/[place] [address] [phone] Potassium 4.6 mmol/L Normal 3.5-5.0 Chloride 102 [...] Egfr Non- 115.7 >60 Egfr 140.0 >60 45 CBC Auto 06/27/2019 [facility] White Blood 10.6 10^3/uL Normal 3.5-10.[address] [place] [address] [phone] Red Blood Count 4.89 10^6/uL High 3.70-4.87 Hemoglobin 11.6 g/dL Low 12.0-16.0 Hematocrit 36 % Normal 35-47 Mean Corpuscular Volume 73 fL Low 80-97 46 Mean Corpuscular Hemoglobin 24 pg Low 27-31 [...] Red Blood Cells % 0.1 Comp Metabolic 05/11/2019 [facility] Sodium 137 mmol/L Normal 135-[address] [place] [address] [phone] Potassium 4.4 mmol/L Normal 3.5-5.0 Chloride 105 [...] Egfr Non- 118.1 >60 Egfr 142.9 >60 47 Laboratory test 05/11/2019 [facility] Erythrocyte Sed 35 mm/Hr High 0-[address] [place] [address] [phone] Urinalysis 05/11/2019 [facility] Urine Color Genna Profile [address] [place] [address] [phone] Urine Appearance Turbid Urine Specific [place] 1.015 Normal 1.010-1.030 Urine pH 5.0 Normal 5-9 Urine Urobilinogen Negative Negative Urine Ketones Negative Negative Urine Protein Negative Negative Urine Leukocytes Negative Negative Urine Blood Negative Negative Urine Nitrite Negative Negative Urine Bilirubin Negative Negative Urine Glucose Negative Negative CBC Auto 05/11/2019 [facility] White Blood 8.6 10^3/uL Normal 3.5-10.[address] [place] [address] [phone] Red Blood Count 4.96 10^6/uL High 3.70-4.87 Hemoglobin 11.5 g/dL Low 12.0-16.0 Hematocrit 36 % Normal 35-47 Mean Corpuscular Volume 73 fL Low 80-97 48 Mean Corpuscular Hemoglobin 23 pg Low 27-31 [...] Blood Cells % 0.0 Laboratory test 05/11/2019 [facility] C Reactive 16.04 mg/L High <8.[address] [place] [address] [phone] Iron & Iron 04/26/2019 [facility] Iron 33 g/dL Low 50-212 Binding Capacity [address] [place] [address] [phone] Unsaturated Iron Binding < 451 g/dL Total Iron Binding Capacity 466 g/dL High 250-450 Transferrin 333 mg/dL Normal 203-362 % Iron Saturation 7 % Low 15-55 Vitamin B12 04/26/2019 [facility] Vitamin B12 334 pg/mL Normal 180-914 49 [address] Folate [address] [place] [address] [phone] Folic Acid (Folate) 18.08 ng/mL >3.99 Laboratory test 04/26/2019 [facility] Ferritin 21.0 ng/mL Normal 11-[address] [place] [address] [phone] 1 SEE RESULT BELOW Name: ANANYA FELICIANO : [address]: Jarocho Oscar MD Acct: [id number] Unit: [id number] AGE: 39 Location: ED Re09/21/19 SEX: F Status: DEP ER SPEC: [id number] RAVEN: 09/21/19-1450 [facility] DR: Jarocho Oscar MD REQ: [id number] RECD: 09/21/19150 STATUS: VENUS SMITH DR: Carmencita Petit MD _ SOURCE: URINE SPDESC: ORDERED: Urine Culture Procedure Result Reported Site Urine Culture Final 09/23/19- 1628 ML Organism 1 STREP GROUP B [place] Count 10-25,000 (Moderate) CFU/ML Organism 2 NORMAL GABBY [place] Count 50-75,000 (Many) CFU/ML No growth of clinically significant organisms Susceptibility testing of penicillins and other B-lactams approved by FDA for treatment of Streptococcus pyogenes (Group A Strep) and Streptococcus agalactiae (Group B Strep) is not necessary for clinical purposes and need not be done routinely, since as with vancomycin, resistant strains have not been recognized. (CLSI K469-K07;p.66) Positive isolates will be saved for one week. Please call the Microbiology Laboratory if further susceptibility testing is needed. * [facility] - Main Lab . END OF REPORT DEPARTMENT OF PATHOLOGY, [address] [place] [address] Berto Paul M.D. Director [facility] # [id number] 2 Normal Range 180 to 914 Indeterminate Range 145 to 180 Deficient Range <145 3 *Ascorbic acid is present which may interfere with detection of blood. 4 The urine specimen was tested at the listed cutoffs: Drug class test level (ng/mL) Amphetamines 500 Barbiturates 200 Benzodiazepine metabolites 200 Cocaine metabolites 150 Cannabinoids 50 Opiates 300 Pcp 25 Specimen was received without chain of custody. Results should be used for medical purposes only. 5 [facility] Severe Sepsis and Septic Shock Management Bundle Measure requires all lactic acids initially measuring >2.0 mmol/L be repeated. 6 Standard intensity warfarin therapeutic range: 2.0-3.0 High intensity warfarin therapeutic range: 2.5-3.5 7 Troponin-I testing on Plasma Separator Tubes (PST) has a known false positive rate of 0.20-0.40%. All positive troponins reflex immediately to secondary confirmatory testing. Using the [employer] D[employer]I 800 Access Immunoassay systems, the 99th percentile upper reference limit was demonstrated to be < 0.03 ng/mL. 8 <5.0 Negative 5.0 - 25.0 Indeterminate (Repeat testing recommended after 72 hours) >25.0 Positive Perimenopausal women can display HCG levels of up to 20 mIU/mL 9 Desirable: <150 Borderline High: 150-199 High: 200-499 Very High: >500 10 Desirable: <200 Borderline High: 200-239 High: >239 11 Low: <40 Desirable: 40-60 High: >60 12 Desirable: <100 Near Optimal: 100-129 Borderline High: 130-159 High: 160-189 Very High: >189 13 Because ethnic data is not always [...] 5 Kidney failure <15 (or dialysis) 14 This individual DOES NOT have the Prothrombin [id number] mutation. Although the Prothrombin Z31103B mutation is absent, the individual may have other genetic and environmental risk factors for thrombosis. Consider genetic consultation and counseling of potentially affected family members regarding laboratory testing. ADDITIONAL INFORMATION This test is a direct mutation analysis using PCR amplification, signal generation and release by cleavage of sequence specific alleles ([employer], [place], [place], [place]). This test has been modified from the inspector fuel hose's instructions. Its performance characteristics were determined by [facility] in a manner consistent with CLIA requirements. This test has not been cleared or approved by the U.S. Food and Drug Administration. 15 RESULT: Kishan Knott M.D. Test Performed by: [address] [address] Recruiting Assistant: Jus Polo M.D. Ph.D.; CLIA# [id number] 16 No evidence of a lupus anticoagulant based on results of Prothrombin Time (PT), Activated Partial Thromboplastin Time (APTT), and Dilute Russ[place] Viper Venom Time (DRVVT). Interpretation not reviewed by physician. 17 ADDITIONAL INFORMATION Standard intensity warfarin therapeutic range: 2.0 to 3.0 High intensity warfarin therapeutic range: 2.5 to 3.5 18 Test Performed by: [place] [address] Recruiting Assistant: Jus Polo M.D. Ph.D.; CLIA# [id number] 19 REFERENCE VALUE <15.0 (Negative) 20 REFERENCE VALUE <15.0 (Negative) Test Performed by: [place] [id number] [place] [address] Recruiting Assistant: Jus Polo M.D. Ph.D.; CLIA# [id number] 21 No evidence of resistance to Activated Protein [...] up. Suggest clinical correlation. Test Performed by: [place] [address] Recruiting Assistant: Jus Polo M.D. Ph.D.; CLIA# [id number] 22 ADDITIONAL INFORMATION This test has been modified from the inspector fuel hose's instructions. Its performance characteristics were determined by [facility] in a manner consistent with CLIA requirements. This test has not been cleared or approved by the U.S. Food and Drug Administration. Test Performed by: [place] [id number] Recruiting Assistant: Jus Polo M.D. Ph.D.; CLIA# [id number] 23 Troponin-I testing on Plasma Separator Tubes (PST) has a known false positive rate of 0.20-0.40%. All positive troponins reflex immediately to secondary confirmatory testing. Using the [employer]xI 800 Access Immunoassay systems, the 99th percentile upper reference limit was demonstrated to be < 0.03 ng/mL. 24 Because ethnic data is not always [...] 5 Kidney failure <15 (or dialysis) 25 Desirable: <150 Borderline High: 150-199 High: 200-499 Very High: >500 26 Desirable: <200 Borderline High: 200-239 High: >239 27 Low: <40 Desirable: 40-60 High: >60 28 Desirable: <100 Near Optimal: 100-129 Borderline High: 130-159 High: 160-189 Very High: >189 29 Critical Result LACT:2.2 Called to [id number] at: 12:19:09 by:[id number] Read back by:[id number] [facility] Severe Sepsis and Septic Shock Management Bundle Measure requires all lactic acids initially measuring >2.0 mmol/L be repeated. 30 Normal Range 180 to 914 Indeterminate Range 145 to 180 Deficient Range <145 31 Therapeutic target for the treatment of diabetes mellitus patients is <7% HBA1C, and in selective patients <6.0%. Please refer to [place] [employer] diabetic care guidelines for further information. 32 SEE RESULT BELOW Name: ANANYA FELICIANO : [address]: Keli Mendoza DO Acct: [id number] Unit: [id number] AGE: 38 Location: [place] [address] Re08/09/19 Dis: 08/10/19 SEX: F Status: DIS Bren SPEC: [id number] RAVEN: 08/09/19 [facility] DR: Mac Galindo MD REQ: [id number] RECD: 08/09/19 STATUS: VENUS SMITH DR: Carmencita Petit MD _ SOURCE: URINE SPDESC: ORDERED: Urine Culture Procedure Result Reported Site Urine Culture Final 08/11/19- 1122 ML Organism 1 STREP GROUP B [place] Count 10-25,000 (Moderate) CFU/ML Organism 2 NORMAL GABBY [place] Count 10-25,000 (Moderate) CFU/ML Susceptibility testing of penicillins and other B-lactams approved by FDA for treatment of Streptococcus pyogenes (Group A Strep) and Streptococcus agalactiae (Group B Strep) is not necessary for clinical purposes and need not be done routinely, since as with vancomycin, resistant strains have not been recognized. (CLSI D351-K93;p.66) Positive isolates will be saved for one week. Please call the Microbiology Laboratory if further susceptibility testing is needed. * - [facility] . END OF REPORT DEPARTMENT OF PATHOLOGY, [address] [place] [address] Berto Paul M.D. Director [facility] # [id number] 33 ADDITIONAL INFORMATION This test was developed and its performance characteristics determined by [facility] in a manner consistent with CLIA requirements. This test has not been cleared or approved by the U.S. Food and Drug Administration. Test Performed by: [address] [address] Recruiting Assistant: Jus Polo M.D. Ph.D.; [facility]# [id number] 34 Standard intensity warfarin therapeutic range: 2.0-3.0 High intensity warfarin therapeutic range: 2.5-3.5 35 Consistent with Previous Results Reported on 07/12/19 36 Butcher: [id number] SEE RESULT BELOW Name: ANANYA FELICIANO : [address]: Carmencita Petit MD Acct: [id number] Unit: [id number] AGE: 38 Location: LAB Re07/08/19 SEX: F Status: REG REF SPEC: [id number] RAVEN: 07/08/190 [facility] DR: Carmencita Petit MD REQ: [id number] RECD: 07/08/19 STATUS: COMP _ SOURCE: URINE SPDESC: ORDERED: Urine Culture Urine Source: Clean Catch Procedure Result Reported Site Urine Culture Final 07/09/19- 1215 ML No Growth (<1,000 CFU/mL) * ML - Main Lab . END OF REPORT DEPARTMENT OF PATHOLOGY, [address] [place] [address] Berto Paul M.D. Director [facility] # [id number] 38 Standard intensity warfarin therapeutic range: 2.0-3.0 High intensity warfarin therapeutic range: 2.5-3.5 39 <5.0 Negative 5.0 - 25.0 Indeterminate (Repeat testing recommended after 72 hours) >25.0 Positive Perimenopausal women can display HCG levels of up to 20 mIU/mL 40 Standard intensity warfarin therapeutic range: 2.0-3.0 High intensity warfarin therapeutic range: 2.5-3.5 41 SEE RESULT BELOW Name: ANANYA FELICIANO : [address]: Anamika Elena MD Acct: [id number] Unit: [id number] AGE: 38 Location: [facility] Re06/29/19 SEX: F Status: REG REF SPEC: [id number] RAVEN: 06/29/[address]: Anamika Elena MD REQ: [id number] RECD: 06/29/19 STATUS: COMP _ SOURCE: URINE SPDESC: ORDERED: Urine Culture Procedure Result Reported Site Urine Culture Final 06/30/19- 1329 ML Organism 1 STREP GROUP B [place] Count 75-100,000 (Many) CFU/ML Susceptibility testing of penicillins and other B-lactams approved by FDA for treatment of Streptococcus pyogenes (Group A Strep) and Streptococcus agalactiae (Group B Strep) is not necessary for clinical purposes and need not be done routinely, since as with vancomycin, resistant strains have not been recognized. (CLSI [id number];p.66) Positive isolates will be saved for one week. Please call the Microbiology Laboratory if further susceptibility testing is needed. * ML - Main Lab . END OF REPORT DEPARTMENT OF PATHOLOGY, [address] [address] Berto Paul M.D. Director [facility] # [id number] 42 *Ascorbic acid is present which may interfere with detection of blood. 43 Because ethnic data is not always readily [...] 15-29 5 Kidney failure <15 (or dialysis) 44 Therapeutic target for the treatment of diabetes mellitus patients is <7% HBA1C, and in selective patients <6.0%. Please refer to [place] [employer] diabetic care guidelines for further information. 45 Because ethnic data is not always readily [...] 15-29 5 Kidney failure <15 (or dialysis) 46 Consistent with Previous Results Reported on 05/11/19 47 Because ethnic data is not always readily [...] 15-29 5 Kidney failure <15 (or dialysis) 48 Consistent with Previous Results Reported on 04/14/19 49 Normal Range 180 to 914 Indeterminate Range 145 to 180 Deficient Range <145 Procedures Date Code Description Status 09/11/2019 112465825 Diabetic Retinal Eye Exam Completed 08/29/2019 81390 EKG Tracing & Interpretation Completed 08/10/2019 92881 ECHO Transthorasic Realtime 2D W Doppler & Color Flow Completed Hosp 07/11/2019 37755 Insertion Interbody Biomechanical Device; Each Completed Interspace 07/11/2019 70730 Insertion Interbody Biomechanical Device; Each Completed Interspace 07/11/2019 07606 Anterior Instrumentation 2-3 Vertebral Segments Completed 07/11/2019 72139 Anterior Instrumentation 2-3 Vertebral Segments Completed 07/11/2019 92867 arthrodesis,anterior interbody incl disc space Completed prep,discectomy,de 07/11/201999290 arthrodesis,anterior interbody incl disc space Completed prep,discectomy,de 07/11/2019 58801 Autograft For Spine Surgery (Incls Harvesting The Completed Graft) 07/11/201903738 Allograft For Spine Surgery, Morselized Completed 06/30/2019 19000 EKG, Interpretation Only Completed 06/27/2019 28568 EKG Tracing & Interpretation Completed 06/06/2019 372996185 Diabetic Retinal Eye Exam Completed 10/13/2016 [id number] Colonoscopy Completed Medical Devices Description No Information Available Encounters Type Date Location Provider Dx Diagnosis Office Visit 10/04/2019 Pul[facility]ology And Ivon G47.33 Obstructive sleep 9:30a [facility] apnea (adult) Radio Division Captain (pediatric) J45.909 Unspecified asthma, uncomplicated R53.83 Other fatigue Office Visit 09/21/2019 Neurohospitalist Zi Serna, R20.0 Anesthesia of 7:00a Clinic skin Office Visit 08/29/2019 [facility] G45.9 Transient 1:00p Radio Division Captain Triston, DO cerebral ischemic FACC attack, unspecified R00.2 Palpitations F17.201 Nicotine dependence, unspecified, in remission G47.33 Obstructive sleep apnea (adult) (pediatric) Z68.39 Body mass index (BMI) 39.0-39.9, adult E66.8 Other obesity E78.5 Hyperlipidemia, unspecified R73.01 Impaired fasting glucose Z86.73 Prsnl hx of TIA (TIA), and cereb infrc w/o resid deficits Office Visit 08/18/2019 [facility] Ivon J45.909 Unspecified 9:00a [facility] Lopez asthma, Radio Division Captain uncomplicated G47.33 Obstructive sleep apnea (adult) (pediatric) Z86.73 Prsnl hx of TIA (TIA), and cereb infrc w/o resid deficits E66.9 Obesity, unspecified Z68.41 Body mass index (BMI) 40.0-44.9, adult Office Visit 08/10/2019 Neurohospitalist Zi Serna, R47.1 Dysarthria and 7:00a Clinic anarthria M62.81 Muscle weakness (generalized) G47.33 Obstructive sleep apnea (adult) (pediatric) Z98.1 Arthrodesis status Office Visit 08/10/2019 10:28a [facility] Keli G45.9 Transient Assoc,michoacano Mendoza, DO cerebral ischemic Hospitalists attack, unspecified R53.1 Weakness G47.33 Obstructive sleep apnea (adult) (pediatric) D50.9 Iron deficiency anemia, unspecified F41.9 Anxiety disorder, unspecified F32.9 Major depressive disorder, single episode, unspecified Office Visit 08/09/2019 Neurohospitalist Zi Serna, R20.0 Anesthesia of 7:00a Clinic skin R47.1 Dysarthria and anarthria Office Visit 08/09/2019 10:27a [facility] Leeann Gagnon, R20.0 Anesthesia of Assocmichoacano MD skin Hospitalists R53.1 Weakness E11.9 Type 2 diabetes mellitus without complications F32.9 Major depressive disorder, single episode, unspecified F41.9 Anxiety disorder, unspecified M54.2 Cervicalgia Office Visit 07/18/2019 2:20p [facility] Internal Carmencita R39.89 Other symptoms and Medicine - Katie Petit signs involving the [facility] genitourinary system L30.9 Dermatitis, unspecified Office Visit 07/13/2019 [facility] Rafaela E11.9 Type 2 diabetes 11:57a Assoc,PORTILLO [place] mellitus without Hospitalists complications F32.9 Major depressive disorder, single episode, unspecified Z98.1 Arthrodesis status Office Visit 07/12/2019 [facility] Sepideh F32.9 Major depressive 11:57a Assoc,michoacano Thrasher, [employer] disorder, single Hospitalists episode, unspecified E11.9 Type 2 diabetes mellitus without complications Z98.1 Arthrodesis status [facility] Major depressive 11:57a Assoc,michoacano Thrasher, [employer] disorder, single Hospitalists episode, unspecified R73.01 Impaired fasting glucose J45.909 Unspecified asthma, uncomplicated Z98.1 Arthrodesis status Office Visit 06/27/2019 8:30a [facility] Internal Cesia Z01.818 Encounter for other Medicine - MD Antonio preprocedural [facility] examination E66.8 Other obesity R06.02 Shortness of breath M48.02 Spinal stenosis, cervical region Office Visit 06/09/2019 Neurosurgery Vassilios G99.2 Myelopathy in 9:30a Services [facility] MD Kassy diseases classified elsewhere M50.022 Cervical disc disorder at C5-C6 level with myelopathy Office Visit 05/10/2019 4:00p Rheumatology Rodriguez Schaffer G99.2 Myelopathy in Services Of Stacey Wilson diseases classified elsewhere M06.4 Inflammatory polyarthropathy R70.0 Elevated erythrocyte sedimentation rate Z79.1 extermination inspector (current) use of non-steroidal non-inflam (Nsaid) N39.41 Urge incontinence Office Visit 04/28/2019 Neurosurgery Karlos M50.022 Cervical disc 11:00a [facility] PORTILLO Clark disorder at C5-C6 level with myelopathy Office Visit 04/18/2019 Rheumatology Rodriguez M06.4 Inflammatory 3:00p Services Of Stacey Schaffer M.D. polyarthropathy R79.82 Elevated C-reactive protein (CRP) R70.0 Elevated erythrocyte sedimentation rate Z79.899 Other custodial (current) drug therapy M62.81 Muscle weakness (generalized) Assessments Date Code Description Provider 10/17/2019 R20.0 Anesthesia of skin Royal Arizmendi M.D. 10/17/2019 R53.83 Other fatigue Royal Arizmendi M.D. 10/17/2019 F41.9 Anxiety disorder, unspecified Royal Arizmendi M.D. 10/04/2019 G47.33 Obstructive sleep apnea (adult) Ivon Lopez NP (pediatric) 10/04/2019 J45.909 Unspecified asthma, uncomplicated Ivon Lopez NP 10/04/2019 R53.83 Other fatigue Ivon Lopez NP 09/29/2019 Z48.89 Encounter for other specified Anamika Elena MD surgical aftercare 09/29/2019 Z86.73 Personal history of transient Anamika Elena MD ischemic attack (TIA), and cerebral infarction without residual deficits 09/21/2019 R20.0 Anesthesia of skin Zi Serna MD 08/29/2019 G45.9 Transient cerebral ischemic attack, Tom Goldstein DO FAC unspecified 08/29/2019 R00.2 Palpitations Tom Goldstein DO FAC 08/29/2019 F17.201 Nicotine dependence, unspecified, in Tom Goldstein DO FAC remission 08/29/2019 G47.33 Obstructive sleep apnea (adult) Tom Goldstein DO FAC (pediatric) 08/29/2019 Z68.39 Body mass index (BMI) 39.0-39.9, Tom Goldstein DO FAC adult 08/29/2019 E66.8 Other obesity Tom Goldstein DO FAC 08/29/2019 E78.5 Hyperlipidemia, unspecified Tom Goldstein DO FACC 08/29/2019 R73.01 Impaired fasting glucose Tom Goldstein DO FAC 08/29/2019 Z86.73 Personal history of transient Tom Goldstein DO [facility] ischemic attack (TIA), and cerebral infarction without residual deficits 08/18/2019 M50.122 Cervical disc disorder at C5-C6 [...] 08/18/2019 E66.9 Obesity, unspecified Ivon Lopez NP 08/18/2019 Z68.41 Body mass index (BMI) 40.0-44.9, Ivon Lopez NP adult 08/16/2019 Z86.73 Personal history of transient Carmencita Petit M.D. ischemic attack (TIA), and cerebral infarction without residual deficits 08/16/2019 G47.30 Sleep apnea, unspecified Carmencita Petit M.D. 08/10/2019 G45.9 Transient cerebral ischemic attack, Keli Mendoza DO unspecified 08/10/2019 R47.1 Dysarthria and anarthria Zi Serna MD 08/10/2019 R53.1 Weakness Keli Mendoza DO 08/10/2019 I63.9 Cerebral infarction, unspecified Howie Foster M.D., [facility], [facility] 08/10/2019 G47.33 Obstructive sleep apnea (adult) Keli Mendoza DO (pediatric) 08/10/2019 M62.81 Muscle weakness (generalized) Zi Serna MD 08/10/2019 D50.9 Iron deficiency anemia, unspecified Keli Mendoza DO 08/10/2019 G47.33 Obstructive sleep apnea (adult) Zi Serna MD (pediatric) 08/10/2019 F41.9 Anxiety disorder, unspecified Keli Mendoza, DO 08/10/2019 Z98.1 Arthrodesis status Zi Serna MD 08/10/2019 F32.9 Major depressive disorder, single Keli Mendoza, DO episode, unspecified 08/09/2019 R20.0 Anesthesia of skin Zi Serna MD 08/09/2019 R47.1 Dysarthria and anarthria Zi Serna MD 08/09/2019 R20.0 Anesthesia of skin Leeann Gagnon MD 08/09/2019 R53.1 Weakness Leeann Gagnon MD 08/09/2019 E11.9 Type 2 diabetes mellitus without Leeann Gagnon MD complications 08/09/2019 F32.9 Major depressive disorder, single Leeann Gagnon MD episode, unspecified 08/09/2019 F41.9 Anxiety disorder, unspecified Leeann Gagnon MD 08/09/2019 M54.2 Cervicalgia Leeann Gagnon MD 07/19/2019 Z48.89 Encounter for other specified [...] F32.9 Major depressive disorder, single Sepideh Thrasher [employer] episode, unspecified 07/12/2019 E11.9 Type 2 diabetes mellitus without Sepideh Thrasher, [employer] complications 07/12/2019 Z98.1 Arthrodesis status Sepideh Thrasher [employer] 07/11/2019 M50.022 Cervical disc disorder at C5-C6 PORTILLO Rivas level with myelopathy 07/11/2019 M50.022 Cervical disc disorder at C5-C6 Anamika Elena MD level with myelopathy 07/11/2019 M50.122 Cervical disc disorder at C5-C6 PORTILLO Rivas level with radiculopathy 07/11/2019 F32.9 Major depressive disorder, single Sepideh Thrasher, [employer] episode, unspecified 07/11/2019 M50.122 Cervical disc disorder at C5-C6 Anamika Elena MD level with radiculopathy 07/11/2019 R73.01 Impaired fasting glucose Sepideh Thrasher, [employer] 07/11/2019 J45.909 Unspecified asthma, uncomplicated Sepideh Thrasher, [employer] 07/11/2019 Z98.1 Arthrodesis status Sepideh Thrasher, [employer] 06/30/2019 M50.022 Cervical disc disorder at C5-C6 [...] sedimentation Rodriguez Schaffer M.D. rate 05/10/2019 Z79.1 retirement (current) use of Rodriguez Schaffer M.D. non-steroidal anti-inflammatories (Nsaid) 05/10/2019 N39.41 Urge incontinence Rodriguez Schaffer M.D. 04/28/2019 M50.022 Cervical disc disorder at C5-C6 PORTILLO Rivas level with myelopathy 04/18/2019 M06.4 Inflammatory polyarthropathy Rodriguez Schaffer M.D. 04/18/2019 R79.82 Elevated C-reactive protein (CRP) Rodriguez Schaffer M.D. 04/18/2019 R70.0 Elevated erythrocyte sedimentation Rodriguez Schaffer M.D. rate 04/18/2019 Z79.899 Other intermediate frame tender (current) drug Rodriguez Schaffer M.D. therapy 04/18/2019 M62.81 Muscle weakness (generalized) Rodriguez Schaffer M.D. Plan of Treatment Future Appointment(s):01/04/2020 9:30 am - Ivon Lopez NP at [facility]11/09/2019 9:50 am - Carmencita Petit M.D. at [facility] Internal Medicine - [facility]11/01/2019 11:30 am - Anamika Elena MD at [facility]surgery [facility]10/17/2019 - Royal Arizmendi M.D.R20.0 Anesthesia of skinFollow up:PRNR53.83 Other ygebsanG43.9 Anxiety disorder, unspecifiedRecommendations:Discuss with Dr. Petit possibly increasing her Zoloft Functional Status Description No Information Available Mental Status Description No Information Available Referrals Refer to Dr Reason for Referral Status Appt Date Lior Llanes MD Closed 09/11/[address] [place] [id number] [phone] Ann Wilson MD Sent 08/29/[address] [place] [address] [phone] Doug Thorne MD Please evaluate and treat cervical radiculopathy Sent [address] [place] [address] [phone] Christiano Puga MD Please evaluate and treat iron Received Partial deficiency anemia and determine cause of rising white count to see if there is a hematologic cause of anemia and leukocytosis and elevated inflammatory markers SECOND REQUEST [address] [place], [place] [id number] [phone] Anamika Elena MD please evaluate and treat patient with Scheduled 05/03/2019 asymmetric upper extremity weakness now extruded paracentral disc associated severe cervical neural foraminal stenosis [address], [place] [address] [phone] Royal Arizmendi MD Please evaluate patient with new onset left upper Sent 00 / extremity weakness, history of an inflammatory arthropathy [address] [place] [address] [place] [address] [phone]
--- OUTSIDE RECORDS SUMMARY | 2019-10-30 10:58 | XMS REPORT | Continuity of Care Document ---
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 Glucophage Take 1 tab by 90tabs Cesia Alvarez, 04/10/2019 500mg mouth once daily Tablets Meloxicam take one tab 30tabs M06.4 Rodriguez Schaffer, 11/03/2018 7.5mg Tablets daily as needed M.D. for pain, avoid other nsaids Albuterol Sulfate four times a day 90ml J45.901 Carmencita Petit, 09/26/2018 as needed M.D. (2.5mg/3ML) 0.083% Nebulizer [facility] Acetaminophen 2 tab every 8 Unknown Extra Strength hours 500mg Tablets Atorvastatin Calcium Take 1 Tablet By 90tabs Cesia Alvarez, Mouth Daily AT MD 40mg Tablets 5PM Aspirin Low Dose Chew And Unknown 81mg Swallow 1 Tablet Chewtabs By Mouth Daily History Medications Amoxicillin 1 tab three times [...] CPT Code Status Date Vaccine Lot # 53622 Refused 10/06/2017 Influenza Virus Vaccine, Quadrivalent, Split, Preservative Free Vital Signs Date Vital Result Comment 09/29/2019 11:06am Height 64 inches 5'4" Weight 250.00 lb Heart Rate 78 /min BP Systolic 156 mmHg BP Diastolic 78 mmHg Pain Level 2 neck BMI (Body Mass Index) 42.9 kg/m2 08/29/2019 12:32pm Height 64 inches 5'4" Weight 228.00 lb with shoes Heart Rate 88 /min BP Systolic 120 mmHg Ra BP Diastolic 84 mmHg Ra BP Systolic Sitting 126 mmHg LA BP Diastolic Sitting 86 mmHg LA BP Systolic Standing 110 mmHg LA BP Diastolic Standing 80 mmHg LA BMI (Body Mass Index) 39.1 kg/m2 Ejection Fraction 55-60% Echo 08/10/19 Results Test Acquired Date Facility Test Result H/L Range Note Urine Drug 09/21/2019 [facility] Urine None Detected None [facility] ED & [address] [place] [address] Screen [phone] Urine Barbiturates Screen None Detected None Detect Urine Benzodiazepine Screen None Detected None Detect Urine Cannabinoids Screen None Detected None Detect Urine Cocaine Screen None Detected None Detect Urine Opiates Screen None Detected None Detect Urine Phencyclidine Screen None Detected None Detect 1 Laboratory test 09/21/2019 [facility] Lactic Acid 1.8 mmol/L Normal 0.5-2.[address] [place] [address] [phone] Inr/Protime 09/21/2019 [facility] Inr 0.98 Normal 0.82-1.[address] [place] [address] [phone] CBC Auto Diff 09/21/2019 [facility] White Blood 9.8 Normal 3.5 -10.[address] Count 10^3/[place] [address] [phone] Red Blood Count 4.69 10^6/uL Normal 3.70-4.87 [...] Blood Cells % 0.1 Comp Metabolic 09/21/2019 [facility] Sodium 136 mmol/L Normal 135-[address] [place] [address] [phone] Potassium 3.8 mmol/L Normal 3.5-5.0 Chloride 102 [...] Egfr Non- 89.7 >60 Egfr 108.6 >60 4 Lipid Profile 09/21/2019 [facility] Triglycerides 221 mg/dL 5 (Trig/Chol/HDL) [place] [address] [phone] Cholesterol 189 mg/dL 6 HDL Cholesterol 35.0 mg/dL 7 LDL Cholesterol 110 mg/dL 8 Laboratory test 09/21/2019 [facility] Troponin-I (TnI) 0.00 ng/ mL <0.03 9 finding [place], [place] [id number] [phone] Alcohol < 10 mg/dL Normal <10 HCG < 0.60 mIU/mL 10 Type & Screen 09/21/2019 [facility] Patient Blood Type A Positive [place], [place] [id number] [phone] Antibody Screen NEGATIVE Urinalysis Profile 09/21/2019 [facility] Urine Color Yellow [place], [place] [id number] [phone] Urine Appearance Clear Urine Specific [facility] [facility] 1.021 Normal 1.010-1.030 Urine pH 5.0 Normal 5-9 Urine Urobilinogen Negative Negative Urine Ketones Negative Negative Urine Protein Negative Negative Urine Leukocytes Trace Abnormal Negative Urine Blood Negative Negative * * Abnormal Negative 11 Urine Nitrite Negative Negative Urine Bilirubin Negative Negative Urine Glucose Negative Negative Urine White Blood Cell Trace(0-5/hpf) Absent Urine Red Blood Cell 1+(3-5/hpf) Abnormal Absent Urine Bacteria Absent Absent Urine Squamous Epithelial Cell Present Abnormal Absent Laboratory test 09/21/2019 [facility] Vitamin B12 366 pg/mL Normal 180-[address] [place] [address] [phone] Urine Culture 09/21/2019 [facility] Urine Culture SEE RESULT [address] [place] [address] [phone] Factor II 08/17/2019 [facility] Prothrombin Negative Negative (Prothrombin) [place] [address] Mutation [phone] Prothrombin [id number] Interp See Comment 14 Prothrombin Mutation Review By See Comment 15 Laboratory test 08/17/2019 [facility] Factor V 87 % 70 - [address] [place] [address] [phone] Activated Protein 08/17/2019 [facility] Act Protein C 2.7 >or =2.[address] [place] [address] [phone] Act Protein C Resist Interp See Comment 17 Cardiolipin 08/17/2019 [facility] Phospholipid Ab < 9.4 MPL 18 Igg/Igm DRIVE IgM, [place] [address] [phone] Phospholipid Ab IgG < 9.4 GPL 19 Lupus 08/17/2019 [facility] Lupus See Comment [address] [place] [address] Inter [phone] Prothrombin Time(Lac) 11.7 sec 9.4 - 12.5 Lac Inr 1.1 0.9-1.1 21 Lac Aptt 32 sec 25 - 37 DRVVT Screen Ratio 0.99 ratio <1.20 22 Laboratory test 08/09/2019 [facility] Methylmalonic 0.11 <= 0.40 23 finding Acid Mma nmol/[place] [address] [phone] Urine Culture 08/09/2019 [facility] Urine Culture SEE [address] [place] [address] BELOW [phone] Laboratory test 08/09/2019 [facility] Vitamin B12 240 pg/mL Normal 180-[address] [place] [address] [phone] Hemoglobin A1c (Glyco HGB) 6.5 % High 4.0-5.6 26 Urinalysis Profile 08/09/2019 [facility] Urine Color Yellow [address] [place], [place] [address] [phone] Urine Appearance Clear Urine Specific [facility] > 1.060 High 1.010-1.030 Urine pH 5.0 [...] Epithelial Cell Present Abnormal Absent Laboratory 08/09/2019 [facility] Lactic Acid 2.2 Critical 0.5- 2.0 27 test finding [address] mmol/[place] [address] [phone] Lipid Profile 08/09/2019 [facility] Triglycerides 170 mg/dL 28 (Trig/Chol/HD [address] L) [place] [address] [phone] Cholesterol 189 mg/dL 29 HDL Cholesterol 35.8 mg/dL 30 LDL Cholesterol 119 mg/dL 31 Comp Metabolic 08/09/2019 [facility] Sodium 138 mmol/L Normal 135-[address] [place] [address] [phone] Potassium 4.1 mmol/L Normal 3.5-5.0 Chloride 104 [...] Egfr Non- 131.3 >60 Egfr 158.8 >60 32 Laboratory test 08/09/2019 [facility] Partial 35.0 Normal 26.0 -38.[address] [place] [address] Time PTT [phone] Troponin-I (TnI) 0.00 ng/mL <0.03 33 Inr/Protime 08/09/2019 [facility] Inr 0.92 Normal 0.82-1.[address] [place], [place] [address]487 [phone] CBC Auto Diff 08/09/2019 [facility] White Blood 7.7 Normal 3.5 -10.[address] Count 10^3/[place] [address] [phone] Red Blood Count 4.45 10^6/uL Normal 3.70-4.87 [...] Blood Cells % 0.1 Laboratory test 07/11/2019 [facility] Point of 122 mg/dL High 70-100 [address] [place] [address] [phone] Urinalysis 07/08/2019 [facility] Urine Color Colorless Profile [address] [place] [address] [phone] Urine Appearance Clear Urine Specific [facility] 1.002 Low 1.010-1.030 Urine pH 6.0 Normal 5-9 Urine Urobilinogen Negative Negative Urine Ketones Negative Negative Urine Protein Negative Negative Urine Leukocytes Negative Negative Urine Blood Negative Negative Urine Nitrite Negative Negative Urine Bilirubin Negative Negative Urine Glucose Negative Negative Urine Culture And 07/08/2019 [facility] Urine SEE RESULT [address] [place] [place] [address] [phone] Laboratory test 07/05/2019 [facility] Partial 37.6 seconds Normal 26.[address] Thrombo -38. [place] [address] Time PTT 0 [phone] Inr/Protime 07/05/2019 [facility] Inr 0.99 Normal 0.[address] -1.0 [place] [address] [phone] Urine Culture And 06/29/2019 [facility] Urine SEE RESULT [address] [place] [place] [address] [phone] Type & Screen 06/29/2019 [facility] Patient A Positive [address] [place] [address] [phone] Antibody Screen NEGATIVE Laboratory 06/29/2019 [facility] Partial 43.4 High 26.0-38.0 test finding [address] [place] [address] Time PTT [phone] Inr/Protime 06/29/2019 [facility] Inr 1.03 Normal 0.82-1.[address] [place] [address] [phone] CBC No Diff 06/29/2019 [facility] White Blood 10.5 Normal 3.5- 10.[address] Count 10^3/[place] [address] [phone] Red Blood Count 4.93 10^6/uL High 3.70-4.87 Hemoglobin 11.5 g/dL Low 12.0-16.0 Hematocrit 36 % Normal 35-47 Mean Corpuscular Volume 72 fL Low 80-97 Mean Corpuscular Hemoglobin 23 pg Low 27-31 Mean Corpuscular HGB Conc 32 g/dL Normal 31-36 Red Cell Distribution Width 17 % High 10-15 Platelet Count 228 10^3/uL Normal 150-450 Mean Platelet Volume 8.6 fL Normal 7.4-10.4 Laboratory test 06/29/2019 [facility] HCG < 0.60 mIU/ mL [address] [place], [place] [address]33 [phone] Urinalysis Profile 06/29/2019 [facility] Urine Color Yellow [address] [place], [place] [address] [phone] Urine Appearance Cloudy Urine Specific [facility] [facility] 1.019 Normal 1.010-1.030 Urine pH 5.0 Normal [...] Cell Present Abnormal Absent Basic Metabolic 06/29/2019 [facility] Sodium 137 mmol/L Normal 135-[address] [place] [address] [phone] Potassium 4.2 mmol/L Normal 3.5-5.0 Chloride 101 mmol/L Normal 101-111 Co2 Carbon Dioxide 29 mmol/L Normal 22-32 Anion Gap 7 mmol/L Normal 2-11 Glucose 76 mg/dL Normal 70-100 Blood Urea Nitrogen 8 mg/dL Normal 6-24 Creatinine 0.58 mg/dL Normal 0.51-0.95 BUN/Creatinine Ratio 13.8 Normal 8-20 Calcium 9.5 mg/dL Normal 8.6-10.3 Egfr Non- 115.7 >60 Egfr 140.0 >60 43 CBC Auto 06/27/2019 [facility] White Blood 10.6 10^3/uL Normal 3.5-10.[address] [place] [address] [phone] Red Blood Count 4.89 10^6/uL High 3.70-4.87 Hemoglobin 11.6 g/dL Low 12.0-16.0 Hematocrit 36 % Normal 35-47 Mean Corpuscular Volume 73 fL Low 80-97 44 Mean Corpuscular Hemoglobin 24 pg Low 27-31 [...] Blood Cells % 0.1 Comp Metabolic 06/27/2019 [facility] Sodium 137 mmol/L Normal 135-[address] [place] [address] [phone] Potassium 4.6 mmol/L Normal 3.5-5.0 Chloride 102 [...] Non- 115.7 >60 Egfr 140.0 >60 45 Laboratory test 06/27/2019 [facility] Hemoglobin A1c 6.4 % High 4.0-5.[address] (Glyco [place]GB) [place] [address] [phone] Urinalysis 05/11/2019 [facility] Urine Color Genna Profile [address] [place] [address] [phone] Urine Appearance Turbid Urine Specific [facility] [facility] 1.015 Normal 1.010-1.030 Urine pH 5.0 Normal 5-9 Urine Urobilinogen Negative Negative Urine Ketones Negative Negative Urine Protein Negative Negative Urine Leukocytes Negative Negative Urine Blood Negative Negative Urine Nitrite Negative Negative Urine Bilirubin Negative Negative Urine Glucose Negative Negative Laboratory test 05/11/2019 [facility] Erythrocyte Sed 35 mm/Hr High 0-[address] [place] [address] [phone] Comp Metabolic 05/11/2019 [facility] Sodium 137 Normal 135- [address] [place] mmol/[place] [address] [phone] Potassium 4.4 mmol/L Normal 3.5-5.0 Chloride 105 [...] Non- 118.1 >60 Egfr 142.9 >60 47 CBC Auto 05/11/2019 [facility] White Blood 8.6 10^3/uL Normal 3.5-10.[address] [place] [address] [phone] Red Blood Count 4.96 10^6/uL High 3.70-4.87 [...] Blood Cells % 0.0 Laboratory test 05/11/2019 [facility] C Reactive 16.04 mg/L High <8.[address] [place] [address] [phone] Iron & Iron 04/26/2019 [facility] Iron 33 g/dL Low 50-212 Binding Capacity [address] [place], [place] [address] [phone] Unsaturated Iron Binding < 451 g/dL Total Iron Binding Capacity 466 g/dL High 250-450 Transferrin 333 mg/dL Normal 203-362 % Iron Saturation 7 % Low 15-55 Vitamin B12 04/26/2019 [facility] Vitamin B12 334 pg/mL Normal 180-914 49 And Folate [address] [place] [address] [phone] Folic Acid (Folate) 18.08 ng/mL >3.99 Laboratory test 04/26/2019 [facility] Ferritin 21.0 Normal 11- [address] ng/[place] [address] [phone] Laboratory test 04/14/2019 [facility] Erythrocyte Sed 31 mm/Hr High 0-[address] [place] [address] [phone] C Reactive Protein 11.99 mg/L High <8.01 CBC Auto 04/14/2019 [facility] White Blood 13.7 10^3/uL High 3.5-10.[address] [place] [address] [phone] Red Blood Count 4.59 10^6/uL Normal 3.70-4.87 Hemoglobin 10.7 g/dL Low 12.0-16.0 Hematocrit 33 % Low 35-47 Mean Corpuscular Volume 72 fL Low 80-97 50 Mean Corpuscular Hemoglobin 23 pg Low 27-31 [...] Blood Cells % 0.1 Comp Metabolic 04/14/2019 [facility] Sodium 139 mmol/L Normal 135-[address] [place] [address] [phone] Potassium 4.2 mmol/L Normal 3.5-5.0 Chloride 104 [...] Egfr Non- 88.8 >60 Egfr 107.4 >60 51 CBC Auto 04/10/2019 [facility] White Blood 11.2 10^3/uL High 3.5-10.[address] [place] [address] [phone] Red Blood Count 5.05 10^6/uL High 3.70-4.87 Hemoglobin 11.5 g/dL Low 12.0-16.0 Hematocrit 36 % Normal 35-47 Mean Corpuscular Volume 72 fL Low 80-97 52 Mean Corpuscular Hemoglobin 23 pg Low 27-31 [...] Blood Cells % 0.0 Comp Metabolic 04/10/2019 [facility] Sodium 135 mmol/L Normal 135-[address] [place] [address] [phone] Potassium 4.4 mmol/L Normal 3.5-5.0 Chloride 101 [...] Egfr Non- 103.3 >60 Egfr 125.0 >60 53 Laboratory test 04/10/2019 [facility] C Reactive 8.82 mg/L High <8.[address] [place] [address] [phone] 1 The urine specimen was tested at the listed cutoffs: Drug class test level (ng/mL) Amphetamines 500 Barbiturates 200 Benzodiazepine metabolites 200 Cocaine metabolites 150 Cannabinoids 50 Opiates 300 Pcp 25 Specimen was received without chain of custody. Results should be used for medical purposes only. 2 [facility] Severe Sepsis and Septic Shock Management Bundle Measure requires all lactic acids initially measuring >2.0 mmol/L be repeated. 3 Standard intensity warfarin therapeutic range: 2.0-3.0 High intensity warfarin therapeutic range: 2.5-3.5 4 Because ethnic data is not always [...] 5 Kidney failure <15 (or dialysis) 5 Desirable: <150 Borderline High: 150-199 High: 200-499 Very High: >500 6 Desirable: <200 Borderline High: 200-239 High: >239 7 Low: <40 Desirable: 40-60 High: >60 8 Desirable: <100 Near Optimal: 100-129 Borderline High: 130-159 High: 160-189 Very High: >189 9 Troponin-I testing on Plasma Separator Tubes (PST) has a known false positive rate of 0.20-0.40%. All positive troponins reflex immediately to secondary confirmatory testing. Using the [employer] DxI 800 Access Immunoassay systems, the 99th percentile upper reference limit was demonstrated to be < 0.03 ng/mL. 10 <5.0 Negative 5.0 - 25.0 Indeterminate (Repeat testing recommended after 72 hours) >25.0 Positive Perimenopausal women can display HCG levels of up to 20 mIU/mL 11 *Ascorbic acid is present which may interfere with detection of blood. 12 Normal Range 180 to 914 Indeterminate Range 145 to 180 Deficient Range <145 13 SEE RESULT BELOW Name: ANANYA FELICIANO : [address]: Jarocho Oscar MD Acct: [id number] Unit: [id number] AGE: 39 Location: ED Re09/21/19 SEX: F Status: DEP ER SPEC: [id number] RAVEN: 09/21/19-[address]: Jarocho Oscar MD REQ: [id number] RECD: 09/21/19-150 STATUS: VENUS SMITH DR: Carmencita Petit MD _ [facility]: Urine Culture Procedure Result Reported Site Urine Culture Final 09/23/19- 1628 ML Organism 1 STREP GROUP B [place] Count 10-25,000 (Moderate) CFU/ML Organism 2 NORMAL GABBY [place] Count 50-75,000 (Many) CFU/ML No growth of clinically significant organisms Susceptibility testing of penicillins and other B-lactams approved by FDA for treatment of Streptococcus pyogenes (Group A Strep) and Streptococcus agalactiae (Group B Strep) is not necessary for clinical purposes and need not be done routinely, since as with vancomycin, resistant strains have not been recognized. (CLSI B236-C40;p.66) Positive isolates will be saved for one week. Please call the Microbiology Laboratory if further susceptibility testing is needed. * ML - Main Lab . END OF REPORT DEPARTMENT OF PATHOLOGY, [address] [place] [address] Berto Paul M.D. Director [facility] # [id number] 14 This individual DOES NOT have the Prothrombin [id number] mutation. Although the Prothrombin [id number] mutation is absent, the individual may have other genetic and environmental risk factors for thrombosis. Consider genetic consultation and counseling of potentially affected family members regarding laboratory testing. ADDITIONAL INFORMATION This test is a direct mutation analysis using PCR amplification, signal generation and release by cleavage of sequence specific alleles ([employer], [employer], [place], [place]). This test has been modified from the solar photovoltaic designer's instructions. Its performance characteristics were determined by [facility] in a manner consistent with CLIA requirements. This test has not been cleared or approved by the U.S. Food and Drug Administration. 15 RESULT: Kishan Knott M.D. Test Performed by: [address] [address] Purchase Request Editor: Jus Polo M.D. Ph.D.; CLIA# [id number] 16 ADDITIONAL INFORMATION This test has been modified from the solar photovoltaic designer's instructions. Its performance characteristics were determined by [facility] in a manner consistent with CLIA requirements. This test has not been cleared or approved by the U.S. Food and Drug Administration. Test Performed by: [place] [address] Purchase Request Editor: Jus Polo M.D. Ph.D.; CLIA# [id number] 17 No evidence of resistance to Activated Protein [...] up. Suggest clinical correlation. Test Performed by: [facility] - [address] [address] Purchase Request Editor: Jus Polo M.D. Ph.D.; CLIA# [id number] 18 REFERENCE VALUE <15.0 (Negative) 19 REFERENCE VALUE <15.0 (Negative) Test Performed by: [facility] - [address] [address] Purchase Request Editor: Jus Polo M.D. Ph.D.; CLIA# [id number] 20 No evidence of a lupus anticoagulant based on results of Prothrombin Time (PT), Activated Partial Thromboplastin Time (APTT), and Dilute [employer] Venom Time (DRVVT). Interpretation not reviewed by physician. 21 ADDITIONAL INFORMATION Standard intensity warfarin therapeutic range: 2.0 to 3.0 High intensity warfarin therapeutic range: 2.5 to 3.5 22 Test Performed by: [facility] [address] Purchase Request Editor: Jus Polo M.D. Ph.D.; CLIA# [id number] 23 ADDITIONAL INFORMATION This test was developed and its performance characteristics determined by [facility] in a manner consistent with CLIA requirements. This test has not been cleared or approved by the U.S. Food and Drug Administration. Test Performed by: [facility] [address] Purchase Request Editor: Jus Polo M.D. Ph.D.; CLIA# [id number] 24 SEE RESULT BELOW Name: ANANYA FELICIANO Home : [address]: Keli Mendoza DO Acct: [id number] Unit: [id number] AGE: 38 Location: [place] [address] Re08/09/19 Dis: 08/10/19 SEX: F Status: DIS Bren SPEC: [id number] RAVEN: 08/09/19-[facility] DR: Mac Galindo MD REQ: [id number] RECD: 08/09/196 STATUS: [facility] DR: Carmencita Petit MD _ SOURCE: URINE [facility]: ORDERED: Urine Culture Procedure Result Reported Site Urine Culture Final 08/11/19- 1122 ML Organism 1 STREP GROUP B [place] Count 10-25,000 (Moderate) CFU/ML Organism 2 NORMAL GABBY [place] Count 10-25,000 (Moderate) CFU/ML Susceptibility testing of penicillins and other B-lactams approved by FDA for treatment of Streptococcus pyogenes (Group A Strep) and Streptococcus agalactiae (Group B Strep) is not necessary for clinical purposes and need not be done routinely, since as with vancomycin, resistant strains have not been recognized. (CLSI G760-I31;p.66) Positive isolates will be saved for one week. Please call the Microbiology Laboratory if further susceptibility testing is needed. * ML - Main Lab . END OF REPORT DEPARTMENT OF PATHOLOGY, [address] [place] [address] Berto Paul M.D. Director [facility] # [id number] 25 Normal Range 180 to 914 Indeterminate Range 145 to 180 Deficient Range <145 26 Therapeutic target for the treatment of diabetes mellitus patients is <7% HBA1C, and in selective patients <6.0%. Please refer to [place] [employer] diabetic care guidelines for further information. 27 Critical Result LACT:2.2 Called to ALEXANDER at: 12:19:09 by:MAHENDRA Read back by:ALEXANDER IAJason Severe Sepsis and Septic Shock Management Bundle Measure requires all lactic acids initially measuring >2.0 mmol/L be repeated. 28 Desirable: <150 Borderline High: 150-199 High: 200-499 Very High: >500 29 Desirable: <200 Borderline High: 200-239 High: >239 30 Low: <40 Desirable: 40-60 High: >60 31 Desirable: <100 Near Optimal: 100-129 Borderline High: 130-159 High: 160-189 Very High: >189 32 Because ethnic data is not always [...] 5 Kidney failure <15 (or dialysis) 33 Troponin-I testing on Plasma Separator Tubes (PST) has a known false positive rate of 0.20-0.40%. All positive troponins reflex immediately to secondary confirmatory testing. Using the [employer] DxI 800 Access Immunoassay systems, the 99th percentile upper reference limit was demonstrated to be < 0.03 ng/mL. 34 Standard intensity warfarin therapeutic range: 2.0-3.0 High intensity warfarin therapeutic range: 2.5-3.5 35 Consistent with Previous Results Reported on 07/12/19 36 Headline Writer: [id number] 37 SEE RESULT BELOW Name: ANANYA FELICIANO : [address]: Carmencita Petit MD Acct: [id number] Unit: [id number] AGE: 38 Location: LAB Re07/08/19 SEX: F Status: REG REF SPEC: [id number] RAVEN: 07/08/[address] [facility] [address]: Carmencita Petit MD REQ: [id number] RECD: 07/08/19 STATUS: COMP _ SOURCE: URINE SPD[facility]: ORDERED: Urine Culture Urine Source: Clean Catch Procedure Result Reported Site Urine Culture Final 07/09/19- 1215 ML No Growth (<1,000 CFU/mL) * ML - Main Lab . END OF REPORT DEPARTMENT OF PATHOLOGY, [address] [place] [address] Berto Paul M.D. Director [facility] # [id number] 38 Standard intensity warfarin therapeutic range: 2.0-3.0 High intensity warfarin therapeutic range: 2.5-3.5 39 SEE RESULT BELOW Name: ANANYA FELICIAON : [address]: Anamika Elena MD Acct: [id number] Unit: [id number] AGE: 38 Location: [facility] Re06/29/19 SEX: F Status: REG REF SPEC: [id number] RAVEN: 06/29/[address]: Anamika Elena MD REQ: [id number] RECD: 06/29/19 STATUS: COMP _ SOURCE: URINE SPDESC: ORDERED: Urine Culture Procedure Result Reported Site Urine Culture Final 06/30/19- 1329 ML Organism 1 STREP GROUP B [place] Count 75-100,000 (Many) CFU/ML Susceptibility testing of penicillins and other B-lactams approved by FDA for treatment of Streptococcus pyogenes (Group A Strep) and Streptococcus agalactiae (Group B Strep) is not necessary for clinical purposes and need not be done routinely, since as with vancomycin, resistant strains have not been recognized. (CLSI [id number];p.66) Positive isolates will be saved for one week. Please call the Microbiology Laboratory if further susceptibility testing is needed. * ML - Main Lab . END OF REPORT DEPARTMENT OF PATHOLOGY, [address] [place] [address] Berto Paul M.D. Director [facility] # [id number] 40 Standard intensity warfarin therapeutic range: 2.0-3.0 High intensity warfarin therapeutic range: 2.5-3.5 41 <5.0 Negative 5.0 - 25.0 Indeterminate (Repeat testing recommended after 72 hours) >25.0 Positive Perimenopausal women can display HCG levels of up to 20 mIU/mL 42 *Ascorbic acid is present which may [...] 5 Kidney failure <15 (or dialysis) 44 Consistent with Previous Results Reported on 05/11/19 45 Because ethnic data is not always [...] 5 Kidney failure <15 (or dialysis) 46 Therapeutic target for the treatment of diabetes mellitus patients is <7% HBA1C, and in selective patients <6.0%. Please refer to [place] [employer] diabetic care guidelines for further information. 47 Because ethnic data is not always [...] 145 to 180 Deficient Range <145 50 Consistent with Previous Results Reported on 04/10/19 51 Because ethnic data is not always readily [...] 15-29 5 Kidney failure <15 (or dialysis) 52 Consistent with Previous Results Reported on 02/10/19. 53 Because ethnic data is not always readily [...] (or dialysis) Procedures Date Code Description Status 09/11/2019 [id number] Diabetic Retinal Eye Exam Completed 08/29/2019 61483 EKG Tracing & Interpretation Completed 08/10/2019 88986 ECHO Transthorasic Realtime 2D W Doppler & Color Flow Completed Hosp 07/11/2019 99708 Insertion Interbody Biomechanical Device; Each Completed Interspace 07/11/2019 20336 Insertion Interbody Biomechanical Device; Each Completed Interspace 07/11/2019 56283 Anterior Instrumentation 2-3 Vertebral Segments Completed 07/11/201961759 Anterior Instrumentation 2-3 Vertebral Segments Completed 07/11/2019 15482 arthrodesis,anterior interbody incl disc space Completed prep,discectomy,de 07/11/2019 75316 arthrodesis,anterior interbody incl disc space Completed prep,discectomy,de 07/11/2019 43111 Autograft For Spine Surgery (Incls Harvesting The Completed Graft) 07/11/201948216 Allograft For Spine Surgery, Morselized Completed 06/30/2019 93151 EKG, Interpretation Only Completed 06/27/2019 79898 EKG Tracing & Interpretation Completed 06/06/2019 [id number] Diabetic Retinal Eye Exam Completed 10/13/2016 [id number] Colonoscopy Completed Medical Devices Description No Information Available Encounters Type Date Location Provider Dx Diagnosis Office Visit 09/21/2019 [facility] Zi Serna MD R20.0 Anesthesia of 7:00a skin Office Visit 08/29/2019 [facility] G45.9 Transient 1:00p Multiple Knife Edge Trimmer Operator Goldstein, DO FACC cerebral ischemic attack, unspecified R00.2 Palpitations F17.201 Nicotine dependence, unspecified, in remission G47.33 Obstructive sleep apnea (adult) (pediatric) Z68.39 Body mass index (BMI) 39.0-39.9, adult E66.8 Other obesity E78.5 Hyperlipidemia, unspecified R73.01 Impaired fasting glucose Z86.73 Prsnl hx of TIA (TIA), and cereb infrc w/o resid deficits Office Visit 08/18/2019 [facility] Ivon J45.909 Unspecified 9:00a [facility] Lopez asthma, Multiple Knife Edge Trimmer Operator uncomplicated G47.33 Obstructive sleep apnea (adult) (pediatric) Z86.73 Prsnl hx of TIA (TIA), and cereb infrc w/o resid deficits E66.9 Obesity, unspecified Z68.41 Body mass index (BMI) 40.0-44.9, adult Office Visit 08/10/2019 Neurohospitalist Zi Serna, R47.1 Dysarthria and 7:00a Clinic anartkimberly M62.81 Muscle weakness (generalized) G47.33 Obstructive sleep apnea (adult) (pediatric) Z98.1 Arthrodesis status Office Visit 08/10/2019 10:28a [facility] Keli G45.9 Transient Assoc,michoacano Mendoza DO cerebral ischemic Hospitalists attack, unspecified R53.1 Weakness G47.33 Obstructive sleep apnea (adult) (pediatric) D50.9 Iron deficiency anemia, unspecified F41.9 Anxiety disorder, unspecified F32.9 Major depressive disorder, single episode, unspecified Office Visit 08/09/2019 Neurohospitalist Zi Serna, R20.0 Anesthesia of 7:00a Clinic skin R47.1 Dysarthria and anarthria Office Visit 08/09/2019 10:27a [facility] Leeann Gagnon, R20.0 Anesthesia of Assmichoacano olivares MD skin Hospitalists R53.1 Weakness E11.9 Type 2 diabetes mellitus without complications F32.9 Major depressive disorder, single episode, unspecified F41.9 Anxiety disorder, unspecified M54.2 Cervicalgia Office Visit 07/18/2019 2:20p [facility] Carmencita R39.89 Other symptoms and Medicine - Katie Petit signs involving the [facility] genitourinary system L30.9 Dermatitis, unspecified Office Visit 07/13/2019 [facility] Rafaela E11.9 Type 2 diabetes 11:57a Assocmichoacano PA-C mellitus without Hospitalists complications F32.9 Major depressive disorder, single episode, unspecified Z98.1 Arthrodesis status Office Visit 07/12/2019 [facility] Sepideh F32.9 Major depressive 11:57a Assocmichoacano NP disorder, single Hospitalists episode, unspecified E11.9 Type 2 diabetes mellitus without complications Z98.1 Arthrodesis status [facility] depressive 11:57a Assoc,michoacano Thrasher, [facility] disorder, single Hospitalists episode, unspecified R73.01 Impaired fasting glucose J45.909 Unspecified asthma, uncomplicated Z98.1 Arthrodesis status Office Visit 06/27/2019 8:30a [facility] Cesia Z01.818 Encounter for other [...] polyarthropathy R70.0 Elevated erythrocyte sedimentation rate Z79.1 FDC (current) use of non-steroidal non-inflam (Nsaid) N39.41 Urge incontinence Office Visit 04/28/2019 Neurosurgery Sharmez M50.022 Cervical disc 11:00a Services Of [facility] Clark disorder at C5-C6 level with myelopathy Office Visit 04/18/2019 Rheumatology Rodriguez M06.4 Inflammatory 3:00p Services Of Stacey Schaffer M.D. polyarthropathy R79.82 Elevated C-reactive protein (CRP) R70.0 Elevated erythrocyte sedimentation rate Z79.899 Other half-way (current) drug therapy M62.81 Muscle weakness (generalized) Office Visit 03/30/2019 Rheumatology Rodriguez Figueroa6.4 Inflammatory 9:20a Services Of Stacey Schaffer M.D. polyarthropathy R79.82 Elevated C-reactive protein (CRP) R70.0 Elevated erythrocyte sedimentation rate Z79.899 Other supervisor long goods (current) drug therapy Assessments Date Code Description Provider 09/29/2019 M50.122 Cervical disc disorder at C5-C6 Anamika Elena MD level with radiculopathy 09/29/2019 M50.022 Cervical disc disorder at C5-C6 Anamika Elena MD level with myelopathy 09/29/2019 G45.9 Transient cerebral ischemic attack, Anamika Elena MD unspecified 09/21/2019 R20.0 Anesthesia of skin Zi Serna MD 08/29/2019 G45.9 Transient cerebral ischemic attack, Tom GomezZachary Goldstein, DO [facility] unspecified 08/29/2019 R00.2 Palpitations Tom Goldstein, DO [facility] 08/29/2019 F17.201 Nicotine dependence, unspecified, in Tom Leesno, DO [facility] remission 08/29/2019 G47.33 Obstructive sleep apnea (adult) Tom Kalli Goldstein, DO [facility] (pediatric) 08/29/2019 Z68.39 Body mass index (BMI) 39.0-39.9, Tom Kalli Goldstein, DO [facility] adult 08/29/2019 E66.8 Other obesity Tom Kalli Goldstein, [facility] 08/29/2019 E78.5 Hyperlipidemia, unspecified Tom Kalli Goldstein, [facility] 08/29/2019 R73.01 Impaired fasting glucose Tom Goldstein, [facility] 08/29/2019 Z86.73 Personal history of transient Tom Goldstein, [facility] ischemic attack (TIA), and cerebral infarction without [...] I63.9 Cerebral infarction, unspecified Howie Foster M.D., [facility], [facility] 08/10/2019 G47.33 Obstructive sleep apnea (adult) Keli Mendoza DO (pediatric) 08/10/2019 M62.81 Muscle weakness (generalized) Zi Serna MD 08/10/2019 D50.9 Iron deficiency anemia, unspecified Keli Mendoza DO 08/10/2019 G47.33 Obstructive sleep apnea (adult) Zi Serna MD (pediatric) 08/10/2019 F41.9 Anxiety disorder, unspecified Keli Mendoza DO 08/10/2019 Z98.1 Arthrodesis status Zi Serna MD 08/10/2019 F32.9 Major depressive disorder, single Keli Mendoza DO episode, unspecified 08/09/2019 R20.0 Anesthesia of skin Zi Serna MD 08/09/2019 R47.1 Dysarthria and anarthria Zi Serna MD 08/09/2019 R20.0 Anesthesia of skin Leeann Gagnon MD 08/09/2019 R53.1 Weakness eLeann Gagnon MD 08/09/2019 E11.9 Type 2 diabetes mellitus without Leeann Gagnon MD complications 08/09/2019 F32.9 Major depressive disorder, single Leeann Gagnon MD episode, unspecified 08/09/2019 F41.9 Anxiety disorder, unspecified Leeann Gagnon MD 08/09/2019 M54.2 Cervicalgia Leeann Gagnon MD 07/19/2019 Z48.89 Encounter for other specified [facility] Rivas surgical aftercare 07/18/2019 R39.89 Other symptoms and signs involving Carmencita Petit, M.D. the genitourinary system 07/18/2019 L30.9 Dermatitis, unspecified Carmencita Petit M.D. 07/13/2019 E11.9 Type 2 diabetes mellitus without Rafaelaroshni Angulo PA-C complications 07/13/2019 F32.9 Major depressive disorder, single Rafaela Fern'serena, PA-C episode, unspecified 07/13/2019 Z98.1 Arthrodesis status Rafaelaroshni Angulo PA-C 07/12/2019 F32.9 Major depressive disorder, single Sepideh Anna Marie, CALCINER OPERATOR HELPER episode, unspecified 07/12/2019 E11.9 Type 2 diabetes mellitus without Sepideh Anna Marie, CALCINER OPERATOR HELPER complications 07/12/2019 Z98.1 Arthrodesis status Sepidehjonh Hollandney, CALCINER OPERATOR HELPER 07/11/2019 M50.022 Cervical disc disorder at C5-C6 PORT[facility] Rivas level with myelopathy 07/11/2019 M50.022 Cervical disc disorder at C5-C6 Anamika Elena MD level with myelopathy 07/11/2019 M50.122 Cervical disc disorder at C5-C6 PORT[facility] Rivas level with radiculopathy 07/11/2019 F32.9 Major depressive disorder, single Sepidehjonh Thrasher, CALCINER OPERATOR HELPER episode, unspecified 07/11/2019 M50.122 Cervical disc disorder at C5-C6 Anamika Elena MD level with radiculopathy 07/11/2019 R73.01 Impaired fasting glucose Sepidehjonh Thrasher, CALCINER OPERATOR HELPER 07/11/2019 J45.909 Unspecified asthma, uncomplicated Sepidehjonh Thrasher, CALCINER OPERATOR HELPER 07/11/2019 Z98.1 Arthrodesis status Sepidehjonh Thrasher, [employer]CIN[employer] OPERATOR HELPER 06/30/2019 M50.022 Cervical disc disorder at C5-C6 [...] sedimentation Rodriguez Schaffer M.D. 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 non-steroidal anti-inflammatories (Nsaid) 05/10/2019 N39.41 Urge incontinence Rodriguez Schaffer M.D. 04/28/2019 M50.022 Cervical disc disorder at C5-C6 PORT[facility]O Rivas level with myelopathy 04/18/2019 M06.4 Inflammatory polyarthropathy Rodriguez Schaffer M.D. 04/18/2019 R79.82 Elevated C-reactive protein (CRP) Rodriguez Schaffer M.D. 04/18/2019 R70.0 Elevated erythrocyte sedimentation Rodriguez Schaffer M.D. rate 04/18/2019 Z79.899 Other supervisor long goods (current) drug Rodriguez Schaffer M.D. therapy 04/18/2019 M62.81 Muscle weakness (generalized) Rodriguez Schaffer M.D. 03/30/2019 M06.4 Inflammatory polyarthropathy Rodriguez Schaffer M.D. 03/30/2019 R79.82 Elevated C-reactive protein (CRP) Rodriguez Schaffer M.D. 03/30/2019 R70.0 Elevated erythrocyte sedimentation Rodriguez Schaffer M.D. rate 03/30/2019 Z79.899 Other half-way (current) drug Rodriguez Schaffer M.D. therapy Plan of Treatment Future Appointment(s):11/09/2019 9:50 am - Carmencita Petit M.D. at [facility]11/01/2019 11:30 am - Anamika Elena MD at [facility]/04/2019 9:30 am - Ivon Lopez NP at [facility]/17/2019 10:00 am - Royal Arizmendi M.D. at [facility]/29/2019 - Anamika Elena, MDM50.122 Cervical disc disorder at C5-C6 level with phvxblibotvieK27.022 Cervical disc disorder at C5-C6 level with myelopathyFollow up:RV in 2-4 weeks as vlxqvagxpF95.9 Transient cerebral ischemic attack, unspecified Functional Status Description No Information Available Mental Status Description No Information Available Referrals Refer to Dr Reason for Referral Status Appt Date Lior Llanes MD Closed 09/11/[address] [place] [id number] [phone] Ann Wilson MD Sent 08/29/[address], [place] [id number] [phone] Doug Thorne MD Please evaluate and treat cervical radiculopathy Sent [address] [facility] [address] [place] [address] [phone] Christiano Puga MD Please evaluate and treat iron Received Partial deficiency anemia and determine cause of rising white count to see if there is a hematologic cause of anemia and leukocytosis and elevated inflammatory markers SECOND REQUEST [address] [place], [place] [id number] [phone] Anamika Elena MD please evaluate and treat patient with Scheduled 05/03/2019 asymmetric upper extremity weakness now extruded paracentral disc associated severe cervical neural foraminal stenosis [address] [facility] [place] [address] [phone] Royal Arizmendi MD Please evaluate patient with new onset left upper Sent extremity weakness, history of an inflammatory arthropathy [address] [facility] [address] [place], [place] [id number] [phone]
--- OUTSIDE RECORDS SUMMARY | 2019-10-30 10:58 | XMS REPORT | Continuity of Care Document ---
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 (2.5mg/3ML) 0.083% Nebulizer Aspirin Low Dose Chew And Unknown 81mg Swallow 1 Tablet Chewtabs By Mouth Daily Atorvastatin Calcium Take 1 Tablet By 90tabs Cesia Alvarez, Mouth Daily AT MD 40mg Tablets 5PM [facility] Acetaminophen 2 tab every 8 Unknown Extra Strength hours 500mg Tablets History Medications Amoxicillin 1 tab three times 15tabs Carmencita Petit, 07/05/2019 - 500mg Tablets a day x 5 days M.D. 07/10/2019 only Gabapentin Take 1 Capsule By 30edmundo Schaffer, 05/26/2019 - 300mg Capsules Mouth AT Night M.D. 06/27/2019 For 1 Week, Then Take 1 Capsule Twice Daily Ongoing Iron (Ferrous Sulfate) take one 60tabs Rodriguez Schaffer, 04/29/2019 - capsule/tablet M.D. 07/18/2019 142(45Fe) mg Tablets daily by mouth ER Gabapentin take 1 capsule by 30edmundo Schaffer, 04/18/2019 - 100mg Capsules mouth at night M.D. 05/10/2019 for 1 week then 1 by mouth twice daily ongoing Gabapentin take one 30caps Rodriguez Schaffer, 04/13/2019 - 300mg Capsules capsule/tablet by M.D. 04/18/2019 mouth at night for 1 week then 1 twice daily ongoing Prednisone Every Day Unknown 04/10/2019 - 20mg Tablets 04/27/2019 Methotrexate Sodium Weekly Unknown 04/08/2019 - 2.5mg 04/18/2019 Tablets Valium Bedtime 3tabs Unknown 04/08/2019 - 5mg Tablets 04/18/2019 Immunizations CPT Code Status Date Vaccine Lot # [id number] Refused 10/06/2017 Influenza Virus Vaccine, Quadrivalent, Split, Preservative Free Vital Signs Date Vital Result Comment 10/04/2019 9:50am Height 64 inches 5'4" Weight 250.00 lb Heart Rate 80 /min BP Systolic 118 mmHg BP Diastolic 74 mmHg O2 % BldC Oximetry 98 % BMI (Body Mass Index) 42.9 kg/m2 09/29/2019 11:06am Height 64 inches 5'4" Weight 250.00 lb Heart Rate 78 /min BP Systolic 156 mmHg BP Diastolic 78 mmHg Pain Level 2 neck BMI (Body Mass Index) 42.9 kg/m2 Results Test Acquired Date Facility Test Result H/L Range Note Urine Drug 09/21/2019 [facility] Urine None Detected None [facility] ED & [address] [facility] [place] [address] Screen [phone] Urine Barbiturates Screen None Detected None Detect Urine Benzodiazepine Screen None Detected None Detect Urine Cannabinoids Screen None Detected None Detect Urine Cocaine Screen None Detected None Detect Urine Opiates Screen None Detected None Detect Urine Phencyclidine Screen None Detected None Detect 1 Laboratory test 09/21/2019 [facility] Lactic Acid 1.8 mmol/L Normal 0.5-2.0 2 finding [address] [place] [address] [phone] Inr/Protime 09/21/2019 [facility] Inr 0.98 Normal 0.82-1.09 3 [address] [place] [address] [phone] CBC Auto Diff 09/21/2019 [facility] White Blood 9.8 Normal 3.5 -10.[address] Count 10^3/[place] [address] [phone] Red Blood Count 4.69 10^6/uL Normal 3.70-4.87 [...] Blood Cells % 0.1 Comp Metabolic 09/21/2019 [facility] Sodium 136 mmol/L Normal 135-145 Panel [address] [place] [address] [phone] Potassium 3.8 mmol/L Normal 3.5-5.0 Chloride 102 [...] Egfr 108.6 >60 4 Lipid Profile 09/21/2019 [facility] Triglycerides 221 mg/dL 5 (Trig/Chol/HDL) [address] [place] [address] [phone] Cholesterol 189 mg/dL 6 HDL Cholesterol 35.0 mg/dL 7 LDL Cholesterol 110 mg/dL 8 Laboratory test 09/21/2019 [facility] Troponin-I (TnI) 0.00 ng/ mL <0.03 [address] [place] [address] [phone] Alcohol < 10 mg/dL Normal <10 HCG < 0.60 mIU/mL 10 Type & Screen 09/21/2019 [facility] Patient Blood Type A Positive [address] [place] [address] [phone] Antibody Screen NEGATIVE Urinalysis Profile 09/21/2019 [facility] Urine Color Yellow [address] [place] [address] [phone] Urine Appearance Clear Urine Specific [place] 1.021 Normal 1.010-1.030 Urine pH 5.0 Normal [...] Cell Present Abnormal Absent Laboratory test 09/21/2019 [facility] Vitamin B12 366 pg/mL Normal 180-[address] [place], [place] [address] [phone] Urine Culture 09/21/2019 [facility] Urine Culture SEE RESULT [address] BELOW Sensitivities [place], [place] [address] [phone] Factor II 08/17/2019 [facility] Prothrombin Negative Negative (Prothrombin) [place] [address] Mutation [phone] Prothrombin [id number] Interp See Comment 14 Prothrombin Mutation Review By See Comment 15 Laboratory test 08/17/2019 [facility] Factor V 87 % 70 - [address] Activity [place], [place] [address] [phone] Activated Protein 08/17/2019 [facility] Act Protein C 2.7 >or =2.[address] [place] [address] [phone] Act Protein C Resist Interp See Comment 17 Cardiolipin 08/17/2019 [facility] Phospholipid Ab < 9.4 MPL 18 Igg/Igm IgM, [place] [address] [phone] Phospholipid Ab IgG < 9.4 GPL 19 Lupus 08/17/2019 [facility] Lupus See Comment [address] [place] [address] Inter [phone] Prothrombin Time(Lac) 11.7 sec 9.4 - 12.5 Lac Inr 1.1 0.9-1.1 21 Lac Aptt 32 sec 25 - 37 DRVVT Screen Ratio 0.99 ratio <1.20 22 Laboratory test 08/09/2019 [facility] Methylmalonic 0.11 <= 0.40 23 finding Acid Mma nmol/mL [place], [place] [address]4094 [phone] Urine Culture 08/09/2019 [facility] Urine Culture SEE 24 [place] [address] BELOW [phone] Laboratory test 08/09/2019 [facility] Vitamin B12 240 pg/mL Normal 180-[address] [place], [place] [address]188[address] [phone] Hemoglobin A1c (Glyco HGB) 6.5 % High 4.0-5.6 26 Urinalysis Profile 08/09/2019 [facility] [place] [address] [phone] Urine Appearance Clear Urine Specific [place] > 1.060 High 1.010-1.030 Urine pH 5.0 [...] Epithelial Cell Present Abnormal Absent Laboratory 08/09/2019 [facility] Lactic Acid 2.2 Critical 0.5- 2.0 27 test finding mmol/L high [place], [place] 6[address]5301 [phone] Lipid Profile 08/09/2019 [facility] Triglycerides 170 mg/dL 28 (Trig/Chol/HD L) [place] [address] [phone] Cholesterol 189 mg/dL 29 HDL Cholesterol 35.8 mg/dL 30 LDL Cholesterol 119 mg/dL 31 Comp Metabolic 08/09/2019 [facility] Sodium 138 mmol/L Normal 135-[address] [place] [address] [phone] Potassium 4.1 mmol/L Normal 3.5-5.0 Chloride 104 [...] Egfr 158.8 >60 32 Laboratory test 08/09/2019 [facility] Partial 35.0 Normal 26.0 -38.[address] [place] [address] Time PTT [phone] Troponin-I (TnI) 0.00 ng/mL <0.03 33 Inr/Protime 08/09/2019 [facility] Inr 0.92 Normal 0.82-1.[address] [place] [address] [phone] CBC Auto Diff 08/09/2019 [facility] White Blood 7.7 Normal 3.5 -10.[address] Count 10^3/[place] [address] [phone] Red Blood Count 4.45 10^6/uL Normal 3.70-4.87 [...] Blood Cells % 0.1 Laboratory test 07/11/2019 [facility] Point of 122 mg/dL High 70-100 [address] Care Glucose [place], [place] [address] [phone] Urinalysis 07/08/2019 [facility] Urine Color Colorless Profile [address] [place], [place] [address] [phone] Urine Appearance Clear Urine Specific [place] 1.002 Low 1.010-1.030 Urine pH 6.0 Normal 5-9 Urine Urobilinogen Negative Negative Urine Ketones Negative Negative Urine Protein Negative Negative Urine Leukocytes Negative Negative Urine Blood Negative Negative Urine Nitrite Negative Negative Urine Bilirubin Negative Negative Urine Glucose Negative Negative Urine Culture And 07/08/2019 [facility] Urine SEE RESULT [address] [place] [address] [phone] Laboratory test 07/05/2019 [facility] Partial 37.6 seconds Normal 26.[address] Thrombo -38. [place] [address] Time PTT [phone] Inr/Protime 07/05/2019 [facility] Inr 0.99 Normal 0.[address] -1.0 [place] [address] [phone] Urine Culture And 06/29/2019 [facility] Urine SEE RESULT [address] Culture BELOW [place], [place] [address] [phone] Type & Screen 06/29/2019 [facility] Patient A Positive [address] [facility] [place] [address] [phone] Antibody Screen NEGATIVE Laboratory 06/29/2019 [facility] Partial 43.4 High 26.0-38.0 test finding [address] [place] [address] [place] [address] Time PTT [phone] Inr/Protime 06/29/2019 [facility] Inr 1.03 Normal 0.82-1.09 40 [address] [place], [place] [address]56[address] [phone] CBC No Diff 06/29/2019 [facility] White Blood 10.5 Normal 3.5- 10.[address] [address] Count 10^3/[place] [address] [phone] Red Blood Count 4.93 10^6/uL High 3.70-4.87 Hemoglobin 11.5 g/dL Low 12.0-16.0 Hematocrit 36 % Normal 35-47 Mean Corpuscular Volume 72 fL Low 80-97 Mean Corpuscular Hemoglobin 23 pg Low 27-31 Mean Corpuscular HGB Conc 32 g/dL Normal 31-36 Red Cell Distribution Width 17 % High 10-15 Platelet Count 228 10^3/uL Normal 150-450 Mean Platelet Volume 8.6 fL Normal 7.4-10.4 Laboratory test 06/29/2019 [facility] HCG < 0.60 mIU/ mL [address] [place] [phone] Urinalysis Profile 06/29/2019 [facility] Urine Color Yellow [address] [place] [phone] Urine Appearance Cloudy Urine Specific [place] 1.019 Normal 1.010-1.030 Urine pH 5.0 Normal [...] Cell Present Abnormal Absent Basic Metabolic 06/29/2019 [facility] Sodium 137 mmol/L Normal 135-[address] [place] [address] [phone] Potassium 4.2 mmol/L Normal 3.5-5.0 Chloride 101 mmol/L Normal 101-111 Co2 Carbon Dioxide 29 mmol/L Normal 22-32 Anion Gap 7 mmol/L Normal 2-11 Glucose 76 mg/dL Normal 70-100 Blood Urea Nitrogen 8 mg/dL Normal 6-24 Creatinine 0.58 mg/dL Normal 0.51-0.95 BUN/Creatinine Ratio 13.8 Normal 8-20 Calcium 9.5 mg/dL Normal 8.6-10.3 Egfr Non- 115.7 >60 Egfr 140.0 >60 43 CBC Auto 06/27/2019 [facility] White Blood 10.6 10^3/uL Normal 3.5-10.[address] [place] [address] [phone] Red Blood Count 4.89 10^6/uL High 3.70-4.87 [...] Blood Cells % 0.1 Comp Metabolic 06/27/2019 [facility] Sodium 137 mmol/L Normal 135-[address] [place] [address] [phone] Potassium 4.6 mmol/L Normal 3.5-5.0 Chloride 102 [...] Egfr 140.0 >60 45 Laboratory test 06/27/2019 [facility] Hemoglobin A1c 6.4 % High 4.0-5.[address] (Glyco [place]GB) [place] [address] [phone] Urinalysis 05/11/2019 [facility] Urine Color Genna [place] [address] [place] [address] [phone] Urine Appearance Turbid Urine Specific [place] 1.015 Normal 1.010-1.030 Urine pH 5.0 Normal 5-9 Urine Urobilinogen Negative Negative Urine Ketones Negative Negative Urine Protein Negative Negative Urine Leukocytes Negative Negative Urine Blood Negative Negative Urine Nitrite Negative Negative Urine Bilirubin Negative Negative Urine Glucose Negative Negative Laboratory test 05/11/2019 [facility] Erythrocyte Sed 35 mm/Hr High 0-[address] [place] [address] [phone] Comp Metabolic 05/11/2019 [facility] Sodium 137 Normal 135- [address] mmol/[place] [address] [phone] Potassium 4.4 mmol/L Normal 3.5-5.0 Chloride 105 [...] Egfr 142.9 >60 47 CBC Auto 05/11/2019 [facility] White Blood 8.6 10^3/uL Normal 3.5-10.[address] [place] [address] [phone] Red Blood Count 4.96 10^6/uL High 3.70-4.87 [...] Blood Cells % 0.0 Laboratory test 05/11/2019 [facility] C Reactive 16.04 mg/L High <8.[address] [place] [address] [phone] Iron & Iron 04/26/2019 [facility] Iron 33 g/dL Low 50-212 Binding Capacity [address] [place] [address] [phone] Unsaturated Iron Binding < 451 g/dL Total Iron Binding Capacity 466 g/dL High 250-450 Transferrin 333 mg/dL Normal 203-362 % Iron Saturation 7 % Low 15-55 Vitamin B12 04/26/2019 [facility] Vitamin B12 334 pg/mL Normal 180-914 49 And Folate [address] [place] [address] [phone] Folic Acid (Folate) 18.08 ng/mL >3.99 Laboratory test 04/26/2019 [facility] Ferritin 21.0 Normal 11- [address] ng/[place] [address] [phone] Laboratory test 04/14/2019 [facility] Erythrocyte Sed 31 mm/Hr High 0-[address] [place] [address] [phone] C Reactive Protein 11.99 mg/L High <8.01 CBC Auto 04/14/2019 [facility] White Blood 13.7 10^3/uL High 3.5-10.[address] [place] [address] [phone] Red Blood Count 4.59 10^6/uL Normal 3.70-4.87 [...] Blood Cells % 0.1 Comp Metabolic 04/14/2019 [facility] Sodium 139 mmol/L Normal 135-[address] [place] [address] [phone] Potassium 4.2 mmol/L Normal 3.5-5.0 Chloride 104 [...] Egfr 107.4 >60 51 CBC Auto 04/10/2019 [facility] White Blood 11.2 10^3/uL High 3.5-10.[address] [place] [address] [phone] Red Blood Count 5.05 10^6/uL High 3.70-4.87 [...] Blood Cells % 0.0 Comp Metabolic 04/10/2019 [facility] Sodium 135 mmol/L Normal 135-[address] [place] [address] [phone] Potassium 4.4 mmol/L Normal 3.5-5.0 Chloride 101 [...] Egfr 125.0 >60 53 Laboratory test 04/10/2019 [facility] C Reactive 8.82 mg/L High <8.[address] [place] [address] [phone] 1 The urine specimen was tested at the listed cutoffs: Drug class test level (ng/mL) Amphetamines 500 Barbiturates 200 Benzodiazepine metabolites 200 Cocaine metabolites 150 Cannabinoids 50 Opiates 300 Pcp 25 Specimen was received without chain of custody. Results should be used for medical purposes only. 2 [facility] Severe Sepsis and Septic Shock [...] immediately to secondary confirmatory testing. Using the Livescribe DxI 800 Access Immunoassay systems, the 99th [...] [address]: Jarocho Oscar MD Acct: [id number] Unit: [id number] AGE: 39 Location: ED Re09/21/19 SEX: F Status: DEP ER SPEC: [id number] RAVEN: 09/21/19-[address] [facility] [address]: Jarocho Oscar MD REQ: [id number] RECD: 09/21/19150 STATUS: VENUS SMITH DR: Carmencita Petit MD _ SOURCE: URINE [facility]: ORDERED: Urine Culture Procedure Result Reported Site Urine Culture Final 09/23/19- 1628 ML Organism 1 STREP GROUP B [place] Count 10-25,000 (Moderate) CFU/ML Organism 2 NORMAL GABBY [place] Count 50-75,000 (Many) CFU/ML No growth of clinically significant organisms Susceptibility testing of penicillins and other B-lactams approved by FDA for treatment of Streptococcus pyogenes (Group A Strep) and Streptococcus agalactiae (Group B Strep) is not necessary for clinical purposes and need not be done routinely, since as with vancomycin, resistant strains have not been recognized. (CLSI A218-J64;p.66) Positive isolates will be saved for one week. Please call the Microbiology Laboratory if further susceptibility testing is needed. * - [facility] . END OF REPORT DEPARTMENT OF PATHOLOGY, [address] [place] [address] Berto Paul M.D. Director [facility] # [id number] 14 This individual DOES NOT have the Prothrombin [id number] mutation. Although the Prothrombin [id number] mutation is absent, the individual may have other genetic and environmental risk factors for thrombosis. Consider genetic consultation and counseling of potentially affected family members regarding laboratory testing. ADDITIONAL INFORMATION This test is a direct mutation analysis using PCR amplification, signal generation and release by cleavage of sequence specific alleles ([employer], [employer], [place], [place]). This test has been modified from the civil rights investigator's instructions. Its performance characteristics were determined by [facility] in a manner consistent with CLIA requirements. This test has not been cleared or approved by the U.S. Food and Drug Administration. 15 RESULT: Kishan Knott M.D. Test Performed by: [facility] [place] [address] [employer]: Jus Polo M.D. Ph.D.; CLIA# [id number] 16 ADDITIONAL INFORMATION This test has been modified from the civil rights investigator's instructions. Its performance characteristics were determined by [facility] in a manner consistent with CLIA requirements. This test has not been cleared or approved by the U.S. Food and Drug Administration. Test Performed by: [facility] - [address] [address] [employer]: Jus Polo M.D. Ph.D.; CLIA# [id number] 17 No evidence of resistance to Activated [...] up. Suggest clinical correlation. Test Performed by: [facility] - [place] [id number] [employer]: Jus Polo M.D. Ph.D.; CLIA# [id number] 18 REFERENCE VALUE <15.0 (Negative) 19 REFERENCE VALUE <15.0 (Negative) Test Performed by: [facility] [address] [place] [address] [employer]: Jus Polo M.D. Ph.D.; CLIA# [id number] 20 No evidence of a lupus anticoagulant based on results of Prothrombin Time (PT), Activated Partial Thromboplastin Time (APTT), and Dilute Russells Viper Venom Time (DRVVT). Interpretation not reviewed by physician. 21 ADDITIONAL INFORMATION Standard intensity warfarin therapeutic range: 2.0 to 3.0 High intensity warfarin therapeutic range: 2.5 to 3.5 22 Test Performed by: [facility] - [address] [address] [employer]: Jus Polo M.D. Ph.D.; CLIA# [id number] 23 ADDITIONAL INFORMATION This test was developed and its performance characteristics determined by [facility] in a manner consistent with CLIA requirements. This test has not been cleared or approved by the U.S. Food and Drug Administration. Test Performed by: [facility] - [address] [address] [employer]: Jus Polo M.D. Ph.D.; CLIA# [id number] 24 SEE RESULT BELOW Name: PITERMARLYANANYA JACKSON : [address]: Keli Mendoza DO Acct: [id number] Unit: [id number] AGE: 38 Location: [place] [address] Re08/09/19 Dis: 08/10/19 SEX: F Status: DIS Bren SPEC: [id number] RAVEN: 08/09/19-[address] [facility] [address]: Mac Galindo MD REQ: [id number] RECD: 08/09/19 STATUS: VENUS SMITH DR: Carmencita Petit MD _ SOURCE: URINE [facility]: ORDERED: Urine Culture Procedure Result Reported Site Urine Culture Final 08/11/19- 1122 ML Organism 1 STREP GROUP B [place] Count 10-25,000 (Moderate) CFU/ML Organism 2 NORMAL GABBY [place] Count 10-25,000 (Moderate) CFU/ML Susceptibility testing of penicillins and other B-lactams approved by FDA for treatment of Streptococcus pyogenes (Group A Strep) and Streptococcus agalactiae (Group B Strep) is not necessary for clinical purposes and need not be done routinely, since as with vancomycin, resistant strains have not been recognized. (CLSI O332-L52;p.66) Positive isolates will be saved for one week. Please call the Microbiology Laboratory if further susceptibility testing is needed. * [facility] - [facility] . END OF REPORT DEPARTMENT OF PATHOLOGY, [address] [place] [address] Berto Paul M.D. Director [facility] # [id number] 25 Normal Range 180 to 914 Indeterminate Range 145 to 180 Deficient Range <145 26 Therapeutic target for the treatment of diabetes mellitus patients is <7% HBA1C, and in selective patients <6.0%. Please refer to [place] [employer] diabetic care guidelines for further information. 27 Critical Result LACT:2.2 Called to [id number] at: 12:19:09 by:[id number] Read back by:[id number] [facility] Severe Sepsis and Septic Shock [...] immediately to secondary confirmatory testing. Using the Livescribe DxI 800 Access Immunoassay systems, the 99th percentile upper reference limit was demonstrated to be < 0.03 ng/mL. 34 Standard intensity warfarin therapeutic range: 2.0-3.0 High intensity warfarin therapeutic range: 2.5-3.5 35 Consistent with Previous Results Reported on 07/12/19 36 Sql Report Developer: [id number] 37 SEE RESULT BELOW Name: ANANYA FELICIANO : [address]: Carmencita Petit MD Acct: [id number] Unit: [id number] AGE: 38 Location: LAB Re07/08/19 SEX: F Status: REG REF SPEC: [id number] RAVEN: 07/08/[address]: Carmencita Petit MD REQ: [id number] RECD: 07/08/19 STATUS: COMP _ SOURCE: URINE SPDESC: ORDERED: Urine Culture Urine Source: Clean Catch Procedure Result Reported Site Urine Culture Final 07/09/19- 1215 ML No Growth (<1,000 CFU/mL) * [facility] - Main Lab . END OF REPORT DEPARTMENT OF PATHOLOGY, [address] [place] [address] Berto Paul M.D. Director [facility] # [id number] 38 Standard intensity warfarin therapeutic range: 2.0-3.0 High intensity warfarin therapeutic range: 2.5-3.5 39 SEE RESULT BELOW Name: ANANYA FELICIANO : [address]: Anamika Elena MD Acct: [id number] Unit: [id number] AGE: 38 Location: [facility] Re06/29/19 SEX: F Status: REG REF SPEC: [id number] RAVEN: 06/29/[address]: Anamika Elena MD REQ: [id number] RECD: 06/29/19 STATUS: COMP _ SOURCE: URINE [facility]ES[facility]: ORDERED: Urine Culture Procedure Result Reported Site Urine Culture Final 06/30/19- 1329 ML Organism 1 STREP GROUP B [place] Count 75-100,000 (Many) CFU/ML Susceptibility testing of penicillins and other B-lactams approved by FDA for treatment of Streptococcus pyogenes (Group A Strep) and Streptococcus agalactiae (Group B Strep) is not necessary for clinical purposes and need not be done routinely, since as with vancomycin, resistant strains have not been recognized. (CLSI F591-F39;p.66) Positive isolates will be saved for one week. Please call the Microbiology Laboratory if further susceptibility testing is needed. * [facility] - Main Lab . END OF REPORT DEPARTMENT OF PATHOLOGY, [address] [place] [address] Berto Paul M.D. Director [facility] # [id number] 40 Standard intensity warfarin therapeutic range: 2.0-3.0 [...] in selective patients <6.0%. Please refer to [place] [employer] diabetic care guidelines for further [...] dialysis) Procedures Date Code Description Status 09/11/2019 [id number] Diabetic Retinal Eye Exam Completed 08/29/2019 65153 EKG Tracing & Interpretation Completed 08/10/2019 49608 ECHO Transthorasic Realtime 2D W Doppler & Color Flow Completed Hosp 07/11/2019 89732 Insertion Interbody Biomechanical Device; Each Completed Interspace 07/11/2019 50042 Insertion Interbody Biomechanical Device; Each Completed Interspace 07/11/2019 28516 Anterior Instrumentation 2-3 Vertebral Segments Completed 07/11/2019 11847 Anterior Instrumentation 2-3 Vertebral Segments Completed 07/11/2019 98044 arthrodesis,anterior interbody incl disc space Completed prep,discectomy,de 07/11/2019 44315 arthrodesis,anterior interbody incl disc space Completed prep,discectomy,de 07/11/201933703 Autograft For Spine Surgery (Incls Harvesting The Completed Graft) 07/11/201998582 Allograft For Spine Surgery, Morselized Completed 06/30/2019 77185 EKG, Interpretation Only Completed 06/27/2019 91225 EKG Tracing & Interpretation Completed 06/06/2019 [id number] Diabetic Retinal Eye Exam Completed 10/13/2016 [id number] Colonoscopy Completed Medical Devices Description No Information Available Encounters Type Date Location Provider Dx Diagnosis Office Visit 09/21/2019 [facility]i Serna MD R20.0 Anesthesia of 7:00a skin Office Visit 08/29/2019 [facility] G45.9 Transient 1:00p Bacteriologist Dairy Goldstein, DO FACC cerebral ischemic attack, unspecified [...] 9:00a [facility] Lopez asthma, Bacteriologist Dairy uncomplicated G47.33 Obstructive sleep apnea (adult) (pediatric) Z86.73 Prsnl hx of TIA (TIA), and cereb infrc w/o resid deficits E66.9 Obesity, unspecified Z68.41 Body mass index (BMI) 40.0-44.9, adult Office Visit 08/10/2019 [facility] Serna, R47.1 Dysarthria and 7:00a Clinic MD quiroga M62.81 Muscle weakness (generalized) G47.33 Obstructive sleep apnea (adult) (pediatric) Z98.1 Arthrodesis status Office Visit 08/10/2019 10:28a [facility] Keli G45.9 Transient Assoc,michoacano Mendoza DO cerebral ischemic Hospitalists attack, unspecified R53.1 Weakness G47.33 Obstructive sleep apnea (adult) (pediatric) D50.9 Iron deficiency anemia, unspecified F41.9 Anxiety disorder, unspecified F32.9 Major depressive disorder, single episode, unspecified Office Visit 08/09/2019 [facility] Zi Serna, R20.0 Anesthesia of 7:00a Clinic skin R47.1 Dysarthria and anarthria Office Visit 08/09/2019 10:27a [facility] Leeann Gagnon, R20.0 Anesthesia of Assmichoacano olivares MD skin Hospitalists R53.1 Weakness E11.9 Type 2 diabetes mellitus without complications F32.9 Major depressive disorder, single episode, unspecified F41.9 Anxiety disorder, unspecified M54.2 Cervicalgia Office Visit 07/18/2019 2:20p [facility] Internal Carmencita R39.89 Other symptoms and Medicine - Katie Petit signs involving the [facility] genitourinary system L30.9 Dermatitis, unspecified Office Visit 07/13/2019 [facility] Rafaela E11.9 Type 2 diabetes 11:57a Assmichoacano olivares PA-C mellitus without Hospitalists complications F32.9 Major depressive disorder, single episode, unspecified Z98.1 Arthrodesis status Office Visit 07/12/2019 [facility] Sepideh F32.9 Major depressive 11:57a Assmichoacano olivares, COPIER TECHNICIAN disorder, single Hospitalists episode, unspecified E11.9 Type 2 diabetes mellitus without complications Z98.1 Arthrodesis status 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 M62.81 Muscle weakness (generalized) Assessments Date Code Description Provider 10/04/2019 G47.33 Obstructive sleep apnea (adult) Ivon Lopez NP (pediatric) 10/04/2019 J45.909 Unspecified asthma, uncomplicated Ivon Lopez NP 10/04/2019 R53.83 Other fatigue Ivon Lopez NP 09/29/2019 M50.122 Cervical disc disorder at C5-C6 Anamika Elena MD level with radiculopathy 09/29/2019 M50.022 Cervical disc disorder at C5-C6 Anamika Elena MD level with myelopathy 09/29/2019 G45.9 Transient cerebral ischemic attack, Anamika Elena MD unspecified 09/21/2019 R20.0 Anesthesia of skin Zi Serna MD 08/29/2019 G45.9 Transient cerebral ischemic attack, Tom Goldstein, DO FACC unspecified 08/29/2019 R00.2 Palpitations Tom Goldstein, DO FACC 08/29/2019 F17.201 Nicotine dependence, unspecified, in Tom Goldstein, DO FACC remission 08/29/2019 G47.33 Obstructive sleep apnea (adult) Tomjulio cesar Goldstein, DO [facility] (pediatric) 08/29/2019 Z68.39 Body mass index (BMI) 39.0-39.9, Tom Goldstein, DO [facility] adult 08/29/2019 E66.8 Other obesity Tomjulio cesar Goldstein, DO [facility] 08/29/2019 E78.5 Hyperlipidemia, unspecified Tom GomezZachary Triston, [facility] 08/29/2019 R73.01 Impaired fasting glucose Tom Goldstein, [facility] 08/29/2019 Z86.73 Personal history of transient Tom Kalli Goldstein, DO [facility] ischemic attack (TIA), and cerebral [...] M.D. 08/10/2019 G45.9 Transient cerebral ischemic attack, DO silas Leone 08/10/2019 R47.1 Dysarthria and anarthria Zi Serna MD 08/10/2019 R53.1 Weakness Keli Mendoza DO 08/10/2019 I63.9 Cerebral infarction, unspecified Howie Foster M.D., [facility] 08/10/2019 G47.33 Obstructive sleep apnea (adult) Keli Mendoza DO (pediatric) 08/10/2019 M62.81 Muscle weakness (generalized) Zi Serna MD 08/10/2019 D50.9 Iron deficiency anemia, unspecified Keli Mendoza, 08/10/2019 G47.33 Obstructive sleep apnea (adult) Zi Serna MD (pediatric) 08/10/2019 F41.9 Anxiety disorder, unspecified Keli Mendoza, 08/10/2019 Z98.1 Arthrodesis status Zi Serna MD [...] F32.9 Major depressive disorder, single Sepideh Thrasher, COPIER TECHNICIAN episode, unspecified 07/12/2019 E11.9 Type 2 diabetes mellitus without Sepideh Thrasher, COPIER TECHNICIAN complications 07/12/2019 Z98.1 Arthrodesis status Sepideh Thrasher, COPIER TECHNICIAN 07/11/2019 M50.022 Cervical disc disorder at C5-C6 [facility] Rivas level with myelopathy 07/11/2019 M50.022 Cervical disc disorder at C5-C6 Anamika Elena MD level with myelopathy 07/11/2019 M50.122 Cervical disc disorder at C5-C6 PORT[facility] Rivas level with radiculopathy 07/11/2019 F32.9 Major depressive disorder, single Sepideh Thrasher, COPIER TECHNICIAN episode, unspecified 07/11/2019 M50.122 Cervical disc disorder at C5-C6 Anamika Elena MD level with radiculopathy 07/11/2019 R73.01 Impaired fasting glucose Sepideh Thrasher, COPIER TECHNICIAN 07/11/2019 J45.909 Unspecified asthma, uncomplicated Sepideh Thrasher, COPIER TECHNICIAN 07/11/2019 Z98.1 Arthrodesis status Sepideh Thrasher, COPIER TECHNICIAN 06/30/2019 M50.022 Cervical disc disorder at C5-C6 Raúl Cornell M.D. level with myelopathy 06/27/2019 Z01.818 Encounter for other preprocedural Cesia Alvarez MD examination 06/27/2019 E66.8 Other obesity Cseia Alvarez MD 06/27/2019 R06.02 Shortness of breath [...] sedimentation Rodriguez Schaffer M.D. rate 05/10/2019 Z79.1 [facility] (current) use of Rodriguez Schaffer M.D. non-steroidal anti-inflammatories (Nsaid) 05/10/2019 N39.41 Urge incontinence Rodriguez Schaffer M.D. 04/28/2019 M50.022 Cervical disc disorder at C5-C6 PORTILLO Rivas level with myelopathy 04/18/2019 M06.4 Inflammatory polyarthropathy Rodriguez Schaffer M.D. 04/18/2019 R79.82 Elevated C-reactive protein (CRP) Rodriguez Schaffer M.D. 04/18/2019 R70.0 Elevated erythrocyte sedimentation Rodriguez Schaffer M.D. rate 04/18/2019 Z79.899 Other [facility] (current) drug Rodriguez Schaffer M.D. therapy 04/18/2019 M62.81 Muscle weakness (generalized) Rodriguez Schaffer M.D. Plan of Treatment Future Appointment(s):01/04/2020 9:30 am - Ivon Lopez NP at [facility]11/09/2019 9:50 am - Carmencita Petit M.D. at [facility] Internal Medicine - [facility]11/01/2019 11:30 am - Anamika Elena MD at Neurosurgery Services [facility]10/17/2019 10:00 am - Royal Arizmendi M.D. at [facility]10/04/2019 - Ivon Lopez NPG47.33 Obstructive sleep apnea (adult) (pediatric)Follow up:3 monthsRecommendations: Keep up the good work with your CPAP! Please work on trying to get 8 hours of sleep with the machineas currently you are getting 6 hours. If you have difficulty with your equipment, or need to replace your mask or hoses, please contact your homecare agency, [facility] . If you have any further questions, please call the [facility] at [phone] If you have anysleepiness while driving you MUST avoid operating a vehicle or machinery. If you feel tired while driving change over and take a nap or switch drivers. If you know you are sleepy and need to go somewhere, arrange for a ride or use public transportation. It is very important to not risk your safety or the safety of others.J45.909 Unspecified asthma, tnldbzflwzpfuP85.83 Other fatigue Functional Status Description No Information Available Mental Status Description No Information Available Referrals Refer to Dr Reason for Referral Status Appt Date Lior Llanes MD Closed 09/11/[address] [place] [id number] [phone] Ann Wilson MD Sent 08/29/2019 [address] [place], [place] [id number] [phone] Doug Thorne MD Please evaluate and treat cervical radiculopathy Sent [address] [place] [address] [phone] Christiano Puga MD Please evaluate and treat iron Received Partial deficiency anemia and determine cause of rising white count to see if there is a hematologic cause of anemia and leukocytosis and elevated inflammatory markers SECOND REQUEST [address] [place] [address] [phone] Anamika Elena MD please evaluate and treat patient with Scheduled 05/03/2019 asymmetric upper extremity weakness now extruded paracentral disc associated severe cervical neural foraminal stenosis [address], [place] [address] [phone] Royal Arizmendi MD Please evaluate patient with new onset left upper Sent extremity weakness, history of an inflammatory arthropathy [address] [place], [place] [id number] [phone]
--- OUTSIDE RECORDS SUMMARY | 2019-10-30 10:58 | XMS REPORT | Continuity of Care Document ---
:1980 External Reference #:[id number] Author Name Lior Llanes M.D. Address [address] [place] [address] Care Team Providers Name Role Phone Carmencita Petit M.D. - Internal Care Team Information Interior Design Program Chair Medicine Anamika Elena - Neurological Care Team Information Interior Design Program Chair Unavailable Surgery Royal Arizmendi M.D. - Neurology Care Team Information Interior Design Program Chair [phone] Rodriguez Schaffer MD - Rheumatology Care Team Information Interior Design Program Chair Problems Active Problems Provider Date Arthritis Lior Llanes M.D. Onset: 06/06/2019 Spinal stenosis Onset: Diabetes mellitus Onset: Note: pre-diabetic H/O: TIA Onset: Social History Type Date Description Comments Sex Unknown ETOH Use Occasionally consumes alcohol Tobacco Use Start: Unknown End: Patient is a former smoker Unknown Recreational Drug Use Denies Drug Use Smoking Status Reviewed: 09/28/19 Patient is a former smoker Allergies, Adverse [...] Information Available Procedures Date Code Description Status 09/11/2019 50945 Est Patient Comprehensive Exam Completed 06/06/2019 18232 New Patient Comprehensive Exam Completed Medical Devices Description No Information Available Encounters Description No Information Available Assessments Date Code Description Provider 09/28/2019 H53.2 Diplopia Lior Llanes M.D. 09/28/2019 E11.9 Type 2 diabetes mellitus without Lior Llanes M.D. 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 09/11/2019 E11.9 Type 2 diabetes mellitus without Lior Llanes M.D. complications 06/06/2019 B30.8 Other viral conjunctivitis Lior Llanes M.D. 06/06/2019 E11.9 Type 2 diabetes mellitus without Lior Llanes M.D. complications Plan of Treatment Future Appointment(s):06/11/2020 1:00 pm - Lior Llanes M.D. at Rodriguez Molina MD, 09/28/2019 - Lior Llanes M.D.H53.2 DiplopiaComments:Smoking can increase the risk of developing or worsening any eye related disease, as well as affect your overall health. If you are a smoker, we strongly recommend that you quit.If you are not a smoker, we strongly recommend that you do not start. YOU EYE EXAM IS HEALTHY.I DO NOT YET HAVE A CLEAR ANSWER FOR YOUR SYMPTOMS, I WOULD AGREE WITH GETTING AN MRI TO LOOK FOR POTENTIAL CAUSES.IF YOUR MRI ISNORMAL, I WOULD RECOMMEND BLOOD WORK TO EVALUATE FOR MYASTHENIA GRAVISFollow up:4 Month Follow Up DIPLOPIA CHECK At your next visit, we are not planning to dilate your eyes. However, if you have any changes in your vision or new symptoms, there are certain situations that requireus to dilate your eyes. If Dr. Llanes requests any additional testing, that may require extra time. If you have any questions before your next appointment, please call our office at .E11.9 Type 2 diabetes mellitus without complicationsComments:You have diabetes. I do not detect any [...]
[2019-10-30 11:00] VITALS: BP 146/77
--- NOTE | 2019-10-30 12:07 | UC ---
Throat Pain/Nasal Peng HPI - HPI Summary HPI Summary: Patient is a 39yo female presenting with nasal congestion, sinus/facial pressure , and PND x3 weeks. Patient states symptoms began with other cold symptoms that have since resolved. States congestion worsening and now her "sinuses burn." Notes intermittent headaches. Notes yellow rhinorrhea and PND. Notes intermittent chills and fevers. Denies cough and sore throat. Taking otc sinus meds and flonase without relief. - History of Current Complaint Chief Complaint: UCRespiratory Stated Complaint: SINUS ISSUES Hx Last Menstrual Period: 10/09/19 Pain Intensity: 4 Pain Scale Used: 0-10 Numeric - Allergies/Home Medications Allergies/Adverse Reactions: Allergies Allergy/AdvReac Type Severity Reaction Status Date / Time cephalexin [From Keflex] Allergy Hives Verified 10/30/19 11:00 hydromorphone Allergy Airway Verified 10/30/19 11:00 Obstruction Sulfa (Sulfonamide Allergy Hives Verified 10/30/19 11:00 Antibiotics) sulfamethoxazole Allergy Hives Verified 10/30/19 11:00 [From Bactrim] trimethoprim [From Bactrim] Allergy Hives Verified 10/30/19 11:00 codeine AdvReac Nausea And Verified 10/30/19 11:00 Vomiting PMH/Surg Hx/FS Hx/Imm Hx Endocrine History: Diabetes, Dyslipidemia Respiratory History: Asthma - Surgical History Surgical History: Yes Surgery Procedure, Year, and Place: lap diamond, tubes in ears,. cervical spine - FUSION-[facility]FAM[facility] DANE[place] UP TO 3T-SCAN IN NORMAL MODE - Family History Known Family History: Positive: Unknown - Pt states she is "adopted", Diabetes - Social History Alcohol Use: Occasionally Alcohol Amount: social Substance Use Type: None Smoking Status (MU): Former Smoker Type: Cigarettes Amount Used/How Often: pack a day for 15 yrs Length of Time of Smoking/Using Tobacco: 12 yrs Have You Smoked in the Last Year: No When Did the Patient Quit Smoking/Using Tobacco: 2013 - Immunization History Most Recent Influenza Vaccination: Declines Most Recent Tetanus Shot: unsure, will offer Most Recent Pneumonia Vaccination: never Review of Systems All Other Systems Reviewed And Are Negative: Yes Constitutional: Positive: Fever, Chills ENT: Positive: Nasal Discharge, Sinus Congestion, Sinus Pain/Tenderness Respiratory: Positive: Negative Cardiovascular: Positive: Negative Musculoskeletal: Positive: Negative Neurological/Mental Status: Positive: Negative Physical Exam - Summary Physical Exam Summary: Vital Signs Reviewed: Yes A+Ox3, no distress Eyes: Conjunctiva Clear ENT: Hearing grossly normal, TM x 2 clear, +nasal congestion, +PND, +frontal/ maxillary sinus TTP, moist, uvula midline, no exudate, no erythema Neck: Positive: Supple Respiratory: Positive: No respiratory distress, No accessory muscle use + CTA throughout no w/r Cardiovascular: RRR nl s1, s2 no m/r Musculoskeletal Exam: SANCHEZ x 4 without difficulty Strength Intact, ROM Intact Neurological: Positive: Alert Psychological: Positive: age appropriate behavior Skin: Positive: no rash, no ecchymosis Vital Signs: Initial Vital Signs Temp 96.6 F 10/30/19 10:57 Pulse 86 10/30/19 10:57 Resp 18 10/30/19 10:57 BP 146/77 10/30/19 10:57 Pulse Ox 97 10/30/19 10:57 Throat Pain/Nasal Course/Dx - Course Course Of Treatment: I treated patient with augmentin for sinusitis and instructed to continue with symptomatic treatment. Instructed to follow up with pcp if symptoms persist. Patient voiced understanding and agreed with treatment plan. - Differential Dx/Diagnosis Differential Diagnosis/HQI/PQRI: Sinusitis, URI Provider Diagnosis: Sinusitis Discharge ED - Sign-Out/Discharge Documenting (check all that apply): Patient Departure All imaging exams completed and their final reports reviewed: No Studies - Discharge Plan Condition: Stable Disposition: HOME Prescriptions: Amoxicillin/Clavulanate TAB* [Augmentin TAB 875*] 875 mg PO BID #14 tab Patient Education Materials: Sinusitis (ED) Referrals: Carmencita Petit MD [Primary Care Provider] - If Needed Additional Instructions: Take Augmentin for treatment of your sinusitis. Continue with Flonase for symptomatic relief. Follow up with your primary care provider if symptoms do not resolve within 7 days. - Billing Disposition and Condition Condition: STABLE Disposition: Home
== END 2019-10-30 11:34 | disposition home or self-care (01) ==
LOC: UCEAST 10:52
DX: J32.9 Chronic sinusitis, unspecified (principal); E11.9 Type 2 diabetes mellitus without complications; J45.909 Unspecified asthma, uncomplicated; Z88.1 Allergy status to other antibiotic agents; Z88.5 Allergy status to narcotic agent; Z88.2 Allergy status to sulfonamides; Z87.891 Personal history of nicotine dependence
CPT/HCPCS: 99212; G0463